=== PATIENT | male | born 1955 | race Caucasian/White ===

== ENCOUNTER 2022-11-13 01:09 | Emergency (ER) | payer OTHER ==
--- OUTSIDE RECORDS SUMMARY | 2022-11-13 01:17 | XMS REPORT | Continuity of Care Document ---
:1955 Author Organization [facility] t Address [address] [place] [address] 14[address] [place] [address] Care Team Providers Name Role Phone CHATA MALDONADO Attending Clinician Unavailable GOLDEN SOSA Attending Clinician Unavailable DARRELL MAHARAJ Attending Clinician Unavailable MK LANGE Attending Clinician Unavailable MIAH JOHNSTON Attending Clinician Unavailable MERRITT TOMAS Attending Clinician Unavailable REENA FLETCHER Attending Clinician Unavailable GOLDEN GALLEGO Attending Clinician Unavailable CIRILO GODOY Attending Clinician Unavailable Ravindra Attending Clinician Unavailable Mp Mendez Attending Clinician Unavailable Wil Aragon Attending Clinician Unavailable Billy Maxwell Attending Clinician Unavailable GOLDEN SOSA Admitting Clinician Unavailable MERRITT TOMAS Admitting Clinician Unavailable Ravindra Admitting Clinician Unavailable Mp Mendez Admitting Clinician Unavailable Wil Aragon Admitting Clinician Unavailable Billy Maxwell Admitting Clinician Unavailable Payers Payer Name Policy Type Policy Number Effective Date Expiration Date [facility] - [id number] PHYSICIAN HEALTH CHOICE (MEDICARE REPLACEMENT HMO) Problems This patient has no known problems. Allergies, Adverse Reactions, Alerts Allergy Allergy Status Severity Reaction(s) Onset Inactive Treating Comm ents Source Name Type Date Date Clinician No Known DA Active U 2018-03 [facility] 00:[facility]: [address] No Known DA Active U 2018-03 [facility]: [address] No Known DA Active U 2019-1 [facility] 0-25 [place] [facility] 00:[facility]: [address] Medications This patient has no known medications. Procedures Procedure Date / Time Performed Performing Clinician Sin valles [id number] 2021-12-20 00:00:00 [facility] [id number] 2021-12-16 00:00:00 [facility] [id number] 2021-12-16 00:00:00 [facility] [id number] 2021-12-16 00:00:00 [facility] [id number] 2021-12-14 00:00:00 [facility] [id number] 2021-12-06 00:00:00 [facility] [id number] 2021-12-06 00:00:00 [facility] [id number] 2021-12-06 00:00:00 [facility] [id number] 2021-12-06 00:00:00 [facility] [id number] 2021-12-06 00:00:00 [facility] [id number] 2021-12-06 00:00:00 [facility] [id number] 2021-11-25 00:00:00 [facility] [id number] 2021-11-25 00:00:00 [facility] [id number] 2021-11-25 00:00:00 [facility] Encounters Start End Encounter Admission Attending Care Care Encounter Source Date/Time Date/Time Type Type Clinicians Facility Department ID 2022-10-29 2022-10-29 Outpatient [facility] [id number] [facility] 00:00:00 00:00:[address] 2022-10-25 2022-10-25 Outpatient JOEL, [facility] [id number] [address] [place] [address] 00:00:00 00:00:00 CHATA 292 [facility] i 2022-10-16 2022-10-16 Outpatient KOSHTI, [facility] [id number] [facility] 00:00:00 00:00:00 CHATA [address] 2022-10-03 2022-10-03 Outpatient KOSHTI, [facility] [id number] [facility] 00:00:00 00:00:00 CHATA 719 Method i 2022-10-03 2022-10-03 Outpatient SHEILA, [facility] [id number] [facility] 00:00:00 00:00:00 GOLDEN 279 Method i 2022-10-03 2022-10-03 Outpatient SHEILA, [facility] [id number] [facility] 00:00:00 00:00:00 GOLDEN 108 Method i 2022-10-03 2022-10-03 Outpatient MAHMARIAN, [facility] [id number] Manor 00:00:00 00:00:00 DARRELL 454 Method i 2022-10-03 2022-10-03 Outpatient AL MENDOZA, [facility] [id number] [facility] 00:00:00 00:00:00 RUAA 590 Method i 2022-09-25 2022-09-25 Outpatient KOSHTI, [facility] [id number] [facility] 00:00:00 00:00:00 CHATA [address] 2022-09-24 2022-09-24 Outpatient AL MENDOZA, [facility] [id number] [facility] 00:00:00 00:00:00 RUAA 064 Method i 2022-09-24 2022-09-24 Outpatient SUTARIA, [facility] [id number] [facility] 00:00:00 00:00:00 MIAH 656 Method i 2022-09-24 2022-09-24 Outpatient TOMAS, [facility] [id number] [facility] 00:00:00 00:00:00 MERRITT [address] 2022-09-21 2022-09-21 Outpatient AL MENDOZA, [facility] [id number] [facility] 00:00:00 00:00:00 RUAA [address] 2022-09-19 2022-09-19 Outpatient TAKASHIMA, [facility] [id number] Manor 00:00:00 00:00:00 MASAYOSHI 171 Meth sadi 2022-08-23 2022-08-23 Outpatient AL MENDOZA, [facility] [id number] [facility] 00:00:00 00:00:00 RUAA 550 Method i 2022-08-21 2022-08-21 Outpatient SHEILA, [facility] [id number] Manor 00:00:00 00:00:00 GOLDEN 325 Method i 2022-08-21 2022-08-21 Outpatient SHEILA, [facility] [id number] Manor 00:00:00 00:00:00 GOLDEN 896 Method i 2022-08-21 2022-08-21 Outpatient [facility] [id number] Manor 00:00:00 00:00:00 661 Method i 2022-07-31 2022-08-07 Inpatient SHEILA, [facility] 018 [id number] Manor 00:00:00 00:00:00 GOLDEN 275 Method i 2022-07-31 2022-07-31 Outpatient SHEILA, [facility] [id number] Manor 00:00:00 00:00:00 GOLDEN 302 Method i 2022-07-31 2022-07-31 Inpatient SHEILA, [facility] [id number] Manor 00:00:00 00:00:00 GOLDEN 063 Method i 2022-07-30 2022-07-30 Outpatient SHEILA, [facility] [id number] Manor 00:00:00 00:00:00 GOLDEN 518 Method i 2022-07-19 2022-07-19 Outpatient SHEILA, [facility] [id number] Manor 00:00:00 00:00:00 GOLDEN 523 Method i 2022-07-19 2022-07-19 Outpatient MAHMARIAN, [facility] [id number] Manor 00:00:00 00:00:00 DARRELL 078 Method i 2022-07-11 2022-07-11 Outpatient TOMAS, [facility] 224 [id number] Manor 00:00:00 00:00:00 MERRITT 498 Method i 2022-06-25 2022-06-25 Outpatient AL MENDOZA, [facility] [id number] Manor 00:00:00 00:00:00 RUAA 677 Method i 2022-06-08 2022-06-08 Outpatient TOMAS, [facility] [id number] Manor 00:00:00 00:00:00 MERRITT [address] 2022-06-08 2022-06-08 Outpatient SHEILA, [facility] [id number] Manor 00:00:00 00:00:00 GOLDEN [address] 2022-06-08 2022-06-08 Outpatient TOMAS, [facility] [id number] Manor 00:00:00 00:00:00 MERRITT [address] 2022-06-08 2022-06-08 Outpatient AL MENDOZA, [facility] [id number] Manor 00:00:00 00:00:00 RUAA [address] 2022-06-05 2022-06-05 Outpatient SHEILA, [facility] [id number] Manor 00:00:00 00:00:00 GOLDEN [address] 2022-06-05 2022-06-05 Outpatient SHEILA, [facility] [id number] [facility] 00:00:00 00:00:00 GOLDEN [address] 2022-05-28 2022-05-28 Outpatient AL MENDOZA, [facility] [id number] Manor 00:00:00 00:00:00 RUAA [address] 2022-05-18 2022-05-18 Outpatient MAHMARIAN, [facility] [id number] Manor 00:00:00 00:00:00 DARRELL [address] 2022-05-18 2022-05-18 Outpatient MAHMARIAN, [facility] [id number] Manor 00:00:00 00:00:00 DARRELL [address] 2022-05-17 2022-05-17 Outpatient SHEILA, [facility] [id number] Manor 00:00:00 00:00:00 GOLDEN [address] 2022-05-17 2022-05-17 Outpatient SHEILA, [facility] [id number] Manor 00:00:00 00:00:00 GOLDEN [address] 2022-05-17 2022-05-17 Outpatient SHEILA, [facility] [id number] Manor 00:00:00 00:00:00 GOLDEN [address] 2022-05-17 2022-05-17 Outpatient SHEILA, [facility] [id number] Manor 00:00:00 00:00:00 GOLDEN [address] 2022-05-15 2022-05-15 Outpatient MAHMARIAN, [facility] [id number] Manor 00:00:00 00:00:00 DARRELL [address] 2022-05-04 2022-05-04 Outpatient TAKASHIMA, [facility] [id number] Manor 00:00:00 00:00:00 BECKYTOSHIA 804 Meth sadi 2022-05-03 2022-05-03 Outpatient LASHONDA, GOLDEN [facility] [id number] Manor 00:00:00 00:00:00 536 Method i 2022-05-02 2022-05-02 Outpatient KAYLAMARIAN, [facility] [id number] Manor 00:00:00 00:00:00 DARRELL [address] 2022-05-02 2022-05-02 Outpatient PIOTRIAN, [facility] [id number] Manor 00:00:00 00:00:00 DARRELL 600 Method i 2022-04-27 2022-04-27 Outpatient SHEILA, [facility] [id number] Manor 00:00:00 00:00:00 GOLDEN 984 Method i 2022-04-26 2022-04-26 Outpatient WALT, [facility] [id number] Manor 00:00:00 00:00:00 CIRILO [address] 2022-04-11 2022-04-11 Outpatient SHEILA, [facility] [id number] Manor 00:00:00 00:00:00 GOLDEN [address] 2022-04-11 2022-04-11 Outpatient SHEILA, [facility] [id number] Manor 00:00:00 00:00:00 GOLDEN [address] 2022-01-18 2022-01-18 Outpatient Hananel_A [facility] [id number] Manor 00:00:00 00:00:00 [id number] 2021-12-15 2022-01-06 Inpatient ALEXIS Mendez, HCAWU REHA [id number] [facility] 18:39:00 10:00:[address] [facility] 2022-01-02 2022-01-02 Outpatient SHEILA, [facility] [id number] Manor 00:00:00 00:00:00 GOLDEN 269 Method i 2022-01-02 2022-01-02 Outpatient SHEILA, [facility] [id number] Manor 00:00:00 00:00:00 GOLDEN 489 Method i 2022-01-02 2022-01-02 Outpatient SHEILA, [facility] [id number] Manor 00:00:00 00:00:00 GOLDEN 659 Method i 2022-01-02 2022-01-02 Outpatient SHEILA, [facility] [id number] Manor 00:00:00 00:00:00 GOLDEN 820 Method i 2022-01-02 2022-01-02 Outpatient SHEILA, [facility] [id number] Manor 00:00:00 00:00:00 GOLDEN 025 Method i 2022-01-02 2022-01-02 Outpatient SHEILA, [facility] [id number] Manor 00:00:00 00:00:00 GOLDEN 132 Method i 2021-12-06 2021-12-15 Inpatient OLIVIA Aguilera [facility] [id number] [facility] 12:01:00 18:30:[address] 2021-11-25 2021-11-29 Inpatient Billy Jaimes [facility] [id number] [facility] 11:51:00 15:33:[address] [place] [address] Results Test Description Test Time Test Comments Results Result Comments Source SARS-CoV-2 (COVID-19) RNA [Presence] in Respiratory sp ecimen by 2022-07-31 13:22:53 ANTHONY with probe detection Test Item Value Reference Range Interpretation Comme nts SARS-CoV-2 (COVID-19) RNA [Presence] in Respiratory specimen by Not detected ANTHONY with probe detection (test code = 21678-6) Whether patient is employed in a healthcare setting (test code = Un known 20168-4) Whether the patient has symptoms related to condition of interest U nknown (test code = 19743-5) Whether the patient was hospitalized for condition of interest Unkn own (test code = 10738-8) Whether the patient was admitted to intensive care unit (ICU) for U nknown condition of interest (test code = 88830-4) Whether patient resides in a congregate care setting (test code = U nknown 62355-1) status (test code = 67781-9) Unknown Date and time of symptom onset (test code = 70501-9) Unknown PIPO ALMEIDASARS-CoV-2 (COVID-19) RNA [Presence] in Respiratory specimen by ANTHONY with probe [id number] 14:31:46 Test Item Value Reference Range Interpretation Comments SARS-CoV-2 (COVID-19) RNA Not detected [Presence] in Respiratory specimen by ANTHONY with probe detection (test code = 41254-8) Whether patient is employed in a Unknown healthcare setting (test code = 87150-1) Whether the patient has symptoms Unknown related to condition of interest (test code = 18342-4) Whether the patient was Unknown hospitalized for condition of interest (test code = 43287-0) Whether the patient was admitted Unknown to intensive care unit (ICU) for condition of interest (test code = 57243-4) Whether patient resides in a Unknown congregate care setting (test code = 00615-6) status (test code = Unknown 95072-3) Date and time of symptom onset Unknown (test code = 08461-3) PIPO MALCOLM [facility] BED[facility]IDE [id number] 15:23:00 Test Item Value Reference Range Interpretation Comments GLUCOSE BEDSIDE TESTING (test code 106 MG/DL 60-99 H = GLUBED) GLUCOSE BEDSIDE [id number] 15:22:00 Test Item Value Reference Range Interpretation Comments GLUCOSE BEDSIDE TESTING (test code 135 MG/DL 60-99 H = GLUBED) GLUCOSE BEDSIDE [id number] 15:22:00 Test Item Value Reference Range Interpretation Comments GLUCOSE BEDSIDE TESTING (test 93 MG/DL 60-99 N Notified Nurse~ code = GLUBED) GLUCOSE BEDSIDE [id number] 20:06:00 Test Item Value Reference Range Interpretation Comments GLUCOSE BEDSIDE TESTING (test code 122 MG/DL 60-99 H = GLUBED) GLUCOSE BEDSIDE [id number] 16:06:00 Test Item Value Reference Range Interpretation Comments GLUCOSE BEDSIDE TESTING 131 MG/DL 60-99 H Noti fied Nurse~ (test code = GLUBED) GLUCOSE BEDSIDE [id number] 11:53:00 Test Item Value Reference Range Interpretation Comments GLUCOSE BEDSIDE TESTING (test 84 MG/DL 60-99 N Notified Nurse~ code = GLUBED) GLUCOSE BEDSIDE [id number] 07:25:00 Test Item Value Reference Range Interpretation Comments GLUCOSE BEDSIDE TESTING (test 87 MG/DL 60-99 N Notified Nurse~ code = GLUBED) PROTHROMBIN [id number] 05:12:00 Test Item Value Reference Range Interpretation Comments PROTHROMBIN TIME 22.6 SECONDS 9.4-12.7 H PATIENT (test code = PTP) INTERNATIONAL NORMAL 2.0 0.86-1.14 H The INR is to be RATIO (test code = used only for INR) monitoring oral anticoagulantth erap y. INDICATION I NR VALUE ---- ---- ---- -------1. Prophylaxis, de ep venous thrombos is, including high risk surgery. 2.0 - 3.0 2. Prophylaxis, deep venous thrombosis, hip surgery, treatm ent for deep venous thrombosis or pulmonary prevention of systemic emboli sm in patients wit h valvular heart disease, atrial fibrillation, tissue heart va lve, or acute myocar dial infarction. 2. 0 - 3.0 3. Senior Case Manager al prosthesis hear t valves, recurre nt systemic emboli sm. 3.0 - 4.5 Comments to Hydrology Professor: .BASIC METABOLIC [id number] 05:09:00 Test Item Value Reference Range Interpretation Comments SODIUM (test code = 141 MMOL/L 137-145 N NA) POTASSIUM (test code = 3.9 MMOL/L 3.5-5.1 N K) CHLORIDE (test code = 109 MMOL/L 98-107 H CL) CARBON DIOXIDE (test 25 MMOL/L 22-30 N code = CO2) GLUCOSE (test code = 96 MG/DL 74-106 N GLU) BLOOD UREA NITROGEN 27 MG/DL 9-20 H (test code = BUN) GLOMERULAR FILTRATION > 60 Report ing units: RATE (test code = GFR) ml/mi n/1.73 m2 (Modified MDRD Formula)Referen ce Range: > or = 6 0 ml/min/1.73 m2 CREATININE (test code 1.20 MG/DL 0.66-1.25 N = CREAT) CALCIUM (test code = 8.6 MG/DL 8.4-10.2 N CA) GLUCOSE BEDSIDE [id number] 19:53:00 Test Item Value Reference Range Interpretation Comments GLUCOSE BEDSIDE TESTING (test code 130 MG/DL 60-99 H = GLUBED) GLUCOSE BEDSIDE [id number] 16:45:00 Test Item Value Reference Range Interpretation Comments GLUCOSE BEDSIDE TESTING (test code = 81 MG/DL 60-99 N GLUBED) GLUCOSE BEDSIDE [id number] 11:33:00 Test Item Value Reference Range Interpretation Comments GLUCOSE BEDSIDE TESTING (test code 102 MG/DL 60-99 H = GLUBED) GLUCOSE BEDSIDE [id number] 07:55:00 Test Item Value Reference Range Interpretation Comments GLUCOSE BEDSIDE TESTING (test code = 93 MG/DL 60-99 N GLUBED) PROTHROMBIN [id number] 06:00:00 Test Item Value Reference Range Interpretation Comments PROTHROMBIN TIME 31.1 SECONDS 9.4-12.7 H PATIENT (test code = PTP) INTERNATIONAL NORMAL 2.7 0.86-1.14 H The INR is to be RATIO (test code = used only for INR) monitoring oral anticoagulantth erap y. INDICATION INR VALUE ---- ---- ---- -------1. Prophylaxis, de ep venous thrombos is, including high risk surgery. 2.0 - 3.0 2. Prophylaxis, deep venous thrombosis, hip surgery, treatm ent for deep venous thrombosis or pulmonary prevention of systemic emboli sm in patients wit h valvular heart disease, atrial fibrillation, tissue heart va lve, or acute myocar dial infarction. 2.0 - 3.0 3. Senior Case Manager al prosthesis hear t valves, recurre nt systemic emboli sm. 3.0 - 4.5 Comments to Hydrology Professor: .GLUCOSE BEDSIDE [id number] 19:57:00 Test Item Value Reference Range Interpretation Comments GLUCOSE BEDSIDE TESTING (test code 143 MG/DL 60-99 H = GLUBED) GLUCOSE BEDSIDE [id number] 17:38:00 Test Item Value Reference Range Interpretation Comments GLUCOSE BEDSIDE TESTING (test code = 86 MG/DL 60-99 N GLUBED) PROTHROMBIN [id number] 12:39:00 Test Item Value Reference Range Interpretation Comments PROTHROMBIN TIME 35.0 SECONDS 9.4-12.7 H PATIENT (test code = PTP) INTERNATIONAL NORMAL 3.0 0.86-1.14 H The INR is to be RATIO (test code = used only for INR) monitoring oral anticoagulantth erap y. INDICATION I NR VALUE ---- ---- ---- -------1. Prophylaxis, de ep venous thrombos is, including high risk surgery. 2.0 - 3.0 2. Prophylaxis, deep venous thrombosis, hip surgery, treatm ent for deep venous thrombosis or pulmonary prevention of systemic emboli sm in patients wit h valvular heart disease, atrial fibrillation, tissue heart va lve, or acute myocar dial infarction. 2. 0 - 3.0 3. Senior Case Manager al prosthesis hear t valves, recurre nt systemic emboli sm. 3.0 - 4.5 PATIENT REFUSE THE BLOOD DRAW. [facility] 0759 BY [id number] BEDSIDE [id number] 11:35:00 Test Item Value Reference Range Interpretation Comments GLUCOSE BEDSIDE TESTING (test code = 96 MG/DL 60-99 N GLUBED) GLUCOSE BEDSIDE [id number] 08:13:00 Test Item Value Reference Range Interpretation Comments GLUCOSE BEDSIDE TESTING (test code = 94 MG/DL 60-99 N GLUBED) GLUCOSE BEDSIDE [id number] 19:42:00 Test Item Value Reference Range Interpretation Comments GLUCOSE BEDSIDE TESTING (test code 146 MG/DL 60-99 H = GLUBED) GLUCOSE BEDSIDE [id number] 15:39:00 Test Item Value Reference Range Interpretation Comments GLUCOSE BEDSIDE TESTING (test code 121 MG/DL 60-99 H = GLUBED) GLUCOSE BEDSIDE [id number] 11:18:00 Test Item Value Reference Range Interpretation Comments GLUCOSE BEDSIDE TESTING (test code 105 MG/DL 60-99 H = GLUBED) GLUCOSE BEDSIDE [id number] 06:42:00 Test Item Value Reference Range Interpretation Comments GLUCOSE BEDSIDE TESTING (test code 104 MG/DL 60-99 H = GLUBED) PROTHROMBIN [id number] 05:30:00 Test Item Value Reference Range Interpretation Comments PROTHROMBIN TIME 28.0 SECONDS 9.4-12.7 H PATIENT (test code = PTP) INTERNATIONAL NORMAL 2.4 0.86-1.14 H The INR is to be RATIO (test code = used only for INR) monitoring oral anticoagulantth erap y. INDICATION I NR VALUE ---- ---- ---- -------1. Prophylaxis, de ep venous thrombos is, including high risk surgery. 2.0 - 3.0 2. Prophylaxis, deep venous thrombosis, hip surgery, treatm ent for deep venous thrombosis or pulmonary prevention of systemic emboli sm in patients wit h valvular heart disease, atrial fibrillation, tissue heart va lve, or acute myocar dial infarction. 2.0 - 3.0 3. Senior Case Manager al prosthesis hear t valves, recurre nt systemic emboli sm. 3.0 - 4.5 CBC W/AUTO [id number] 05:23:00 Test Item Value Reference Range Interpretation Comments WHITE BLOOD CELL (test code = 6.3 K/MM3 3.8-9.8 N WBC) RED BLOOD CELL (test code = 3.29 M/MM3 3.95-5.67 L RBC) HEMOGLOBIN (test code = HGB) 9.4 G/DL 12.4-16.7 L HEMATOCRIT (test code = HCT) 29.4 % 35.9-49.5 L MEAN CELL VOLUME (test code = 89 fL 81.7-96.1 N MCV) MEAN CELL HGB (test code = MCH) 28.6 pg 27.6-33.2 N MEAN CELL HGB CONCETRATION 32.0 % 32.9-35.5 L (test code = MCHC) RED CELL DISTRIBUTION WIDTH 14.0 % 12.1-15.2 N (test code = RDW) PLATELET COUNT (test code = 218 K/MM3 129-368 N PLT) MEAN PLATELET VOLUME (test code 10.0 fl 7.4-10.4 N = MPV) NEUTROPHIL % (test code = NT%) 56.5 % 43-75 N IMMATURE GRANULOCYTE % (test 0.3 % 0.0-2.0 N code = IG%) LYMPHOCYTE % (test code = LY%) 32.8 % 14-44 N MONOCYTE % (test code = MO%) 8.4 % 4-13 N EOSINOPHIL % (test code = EO%) 1.4 % 0-6 N BASOPHIL % (test code = BA%) 0.6 % 0-2 N NUCLEATED RBC % (test code = 0.0 % 0-1.0 N NRBC%) NEUTROPHIL # (test code = NT#) 3.57 K/mm3 2.0-7.6 N IMMATURE GRANULOCYTE # (test 0.02 x10 3/uL 0-0.03 N code = IG#) LYMPHOCYTE # (test code = LY#) 2.07 K/mm3 1.0-3.8 N MONOCYTE # (test code = MO#) 0.53 K/mm3 0.1-0.8 N EOSINOPHIL # (test code = EO#) 0.09 K/mm3 0.0-0.2 N BASOPHIL # (test code = BA#) 0.04 K/mm3 0.0-0.2 N NUCLEATED RBC # (test code = 0.00 K/mm3 0.0-0.1 N NRBC#) GLUCOSE BEDSIDE [id number] 20:33:00 Test Item Value Reference Range Interpretation Comments GLUCOSE BEDSIDE TESTING (test code 141 MG/DL 60-99 H = GLUBED) GLUCOSE BEDSIDE [id number] 15:44:00 Test Item Value Reference Range Interpretation Comments GLUCOSE BEDSIDE TESTING 110 MG/DL 60-99 H Noti fied Nurse~ (test code = GLUBED) GLUCOSE BEDSIDE [id number] 11:50:00 Test Item Value Reference Range Interpretation Comments GLUCOSE BEDSIDE TESTING (test 97 MG/DL 60-99 N Notified Nurse~ code = GLUBED) PROTHROMBIN [id number] 10:11:00 Test Item Value Reference Range Interpretation Comments PROTHROMBIN TIME 26.3 SECONDS 9.4-12.7 H PATIENT (test code = PTP) INTERNATIONAL NORMAL 2.3 0.86-1.14 H The INR is to be RATIO (test code = used only for INR) monitoring oral anticoagulantth erap y. INDICATION I NR VALUE ---- ---- ---- -------1. Prophylaxis, de ep venous thrombos is, including high risk surgery. 2.0 - 3.0 2. Prophylaxis, deep venous thrombosis, hip surgery, treatm ent for deep venous thrombosis or pulmonary prevention of systemic emboli sm in patients wit h valvular heart disease, atrial fibrillation, tissue heart va lve, or acute myocar dial infarction. 2.0 - 3.0 3. Senior Case Manager al prosthesis hear t valves, recurre nt systemic emboli sm. 3.0 - 4.5 GLUCOSE BEDSIDE [id number] 07:02:00 Test Item Value Reference Range Interpretation Comments GLUCOSE BEDSIDE TESTING 106 MG/DL 60-99 H Noti fied Nurse~ (test code = GLUBED) BASIC METABOLIC [id number] 04:38:00 Test Item Value Reference Range Interpretation Comments SODIUM (test code = 141 MMOL/L 137-145 N NA) POTASSIUM (test code = 3.9 MMOL/L 3.5-5.1 N K) CHLORIDE (test code = 110 MMOL/L 98-107 H CL) CARBON DIOXIDE (test 22 MMOL/L 22-30 N code = CO2) ANION GAP (test code = 13 MMOL/L 14-24 L GAP) GLUCOSE (test code = 112 MG/DL 74-106 H GLU) BLOOD UREA NITROGEN 24 MG/DL 9-20 H (test code = BUN) GLOMERULAR FILTRATION > 60 Report ing units: RATE (test code = GFR) ml/mi n/1.73 m2 (Modified MDRD Formula)Referen ce Range: > or = 6 0 ml/min/1.73 m2 CREATININE (test code 1.20 MG/DL 0.66-1.25 N = CREAT) CALCIUM (test code = 8.7 MG/DL 8.4-10.2 N CA) GLUCOSE BEDSIDE [id number] 19:42:00 Test Item Value Reference Range Interpretation Comments GLUCOSE BEDSIDE TESTING (test code 133 MG/DL 60-99 H = GLUBED) GLUCOSE BEDSIDE [id number] 16:13:00 Test Item Value Reference Range Interpretation Comments GLUCOSE BEDSIDE TESTING (test code 117 MG/DL 60-99 H = GLUBED) GLUCOSE BEDSIDE [id number] 11:12:00 Test Item Value Reference Range Interpretation Comments GLUCOSE BEDSIDE TESTING (test code 123 MG/DL 60-99 H = GLUBED) PROTHROMBIN [id number] 09:02:00 Test Item Value Reference Range Interpretation Comments PROTHROMBIN TIME 22.2 SECONDS 9.4-12.7 H PATIENT (test code = PTP) INTERNATIONAL NORMAL 1.9 0.86-1.14 H The INR is to be RATIO (test code = used only for INR) monitoring oral anticoagulantth erap y. INDICATION I NR VALUE ---- ---- ---- -------1. Prophylaxis, de ep venous thrombos is, including high risk surgery. 2.0 - 3.0 2. Prophylaxis, deep venous thrombosis, hip surgery, treatm ent for deep venous thrombosis or pulmonary prevention of systemic emboli sm in patients wit h valvular heart disease, atrial fibrillation, tissue heart va lve, or acute myocar dial infarction. 2.0 - 3.0 3. Senior Case Manager al prosthesis hear t valves, recurre nt systemic emboli sm. 3.0 - 4.5 GLUCOSE BEDSIDE [id number] 06:51:00 Test Item Value Reference Range Interpretation Comments GLUCOSE BEDSIDE TESTING (test code 111 MG/DL 60-99 H = GLUBED) GLUCOSE BEDSIDE [id number] 19:46:00 Test Item Value Reference Range Interpretation Comments GLUCOSE BEDSIDE TESTING (test code 148 MG/DL 60-99 H = GLUBED) GLUCOSE BEDSIDE [id number] 16:06:00 Test Item Value Reference Range Interpretation Comments GLUCOSE BEDSIDE TESTING (test code 132 MG/DL 60-99 H = GLUBED) GLUCOSE BEDSIDE [id number] 11:21:00 Test Item Value Reference Range Interpretation Comments GLUCOSE BEDSIDE TESTING (test code 159 MG/DL 60-99 H = GLUBED) GLUCOSE BEDSIDE [id number] 07:01:00 Test Item Value Reference Range Interpretation Comments GLUCOSE BEDSIDE TESTING (test code 103 MG/DL 60-99 H = GLUBED) PROTHROMBIN [id number] 05:18:00 Test Item Value Reference Range Interpretation Comments PROTHROMBIN TIME 20.8 SECONDS 9.4-12.7 H PATIENT (test code = PTP) INTERNATIONAL NORMAL 1.8 0.86-1.14 H The INR is to be RATIO (test code = used only for INR) monitoring oral anticoagulantth erap y. INDICATION I NR VALUE ---- ---- ---- -------1. Prophylaxis, de ep venous thrombos is, including high risk surgery. 2.0 - 3.0 2. Prophylaxis, deep venous thrombosis, hip surgery, treatm ent for deep venous thrombosis or pulmonary prevention of systemic emboli sm in patients wit h valvular heart disease, atrial fibrillation, tissue heart va lve, or acute myocar dial infarction. 2.0 - 3.0 3. Senior Case Manager al prosthesis hear t valves, recurre nt systemic emboli sm. 3.0 - 4.5 GLUCOSE BEDSIDE [id number] 19:57:00 Test Item Value Reference Range Interpretation Comments GLUCOSE BEDSIDE TESTING (test code 162 MG/DL 60-99 H = GLUBED) GLUCOSE BEDSIDE [id number] 16:18:00 Test Item Value Reference Range Interpretation Comments GLUCOSE BEDSIDE TESTING (test 89 MG/DL 60-99 N Notified Nurse~ code = GLUBED) GLUCOSE BEDSIDE [id number] 11:25:00 Test Item Value Reference Range Interpretation Comments GLUCOSE BEDSIDE TESTING 150 MG/DL 60-99 H Noti fied Nurse~ (test code = GLUBED) PROTHROMBIN [id number] 08:44:00 Test Item Value Reference Range Interpretation Comments PROTHROMBIN TIME 24.4 SECONDS 9.4-12.7 H PATIENT (test code = PTP) INTERNATIONAL NORMAL 2.2 0.86-1.14 H The INR is to be RATIO (test code = used only for INR) monitoring oral anticoagulantth erap y. INDICATION I NR VALUE ---- ---- ---- -------1. Prophylaxis, de ep venous thrombos is, including high risk surgery. 2.0 - 3.0 2. Prophylaxis, deep venous thrombosis, hip surgery, treatm ent for deep venous thrombosis or pulmonary prevention of systemic emboli sm in patients wit h valvular heart disease, atrial fibrillation, tissue heart va lve, or acute myocar dial infarction. 2.0 - 3.0 3. Senior Case Manager al prosthesis hear t valves, recurre nt systemic emboli sm. 3.0 - 4.5 UNABLE TO DRAW BLOOD, REASON: PT WANTS LABS @ 8AMNOTIFIED PATIENT CARE STAFF: VENTURA OROZCO 12/29/21 AT 0700 BY Marco AlejoaGLUCOSE BEDSIDE [id number] 07:22:00 Test Item Value Reference Range Interpretation Comments GLUCOSE BEDSIDE TESTING 111 MG/DL 60-99 H Noti fied Nurse~ (test code = GLUBED) GLUCOSE BEDSIDE [id number] 20:17:00 Test Item Value Reference Range Interpretation Comments GLUCOSE BEDSIDE TESTING (test code 151 MG/DL 60-99 H = GLUBED) GLUCOSE BEDSIDE [id number] 16:45:00 Test Item Value Reference Range Interpretation Comments GLUCOSE BEDSIDE TESTING 112 MG/DL 60-99 H Noti fied Nurse~ (test code = GLUBED) GLUCOSE BEDSIDE [id number] 11:17:00 Test Item Value Reference Range Interpretation Comments GLUCOSE BEDSIDE TESTING 128 MG/DL 60-99 H Noti fied Nurse~ (test code = GLUBED) GLUCOSE BEDSIDE [id number] 07:23:00 Test Item Value Reference Range Interpretation Comments GLUCOSE BEDSIDE TESTING (test code 102 MG/DL 60-99 H = GLUBED) PROTHROMBIN [id number] 05:22:00 Test Item Value Reference Range Interpretation Comments PROTHROMBIN TIME 36.3 SECONDS 9.4-12.7 H PATIENT (test code = PTP) INTERNATIONAL NORMAL 3.2 0.86-1.14 H The INR is to be RATIO (test code = used only for INR) monitoring oral anticoagulantth erap y. INDICATION I NR VALUE ---- ---- ---- -------1. Prophylaxis, de ep venous thrombos is, including high risk surgery. 2.0 - 3.0 2. Prophylaxis, deep venous thrombosis, hip surgery, treatm ent for deep venous thrombosis or pulmonary prevention of systemic emboli sm in patients wit h valvular heart disease, atrial fibrillation, tissue heart va lve, or acute myocar dial infarction. 2.0 - 3.0 3. Senior Case Manager al prosthesis hear t valves, recurre nt systemic emboli sm. 3.0 - 4.5 GLUCOSE BEDSIDE [id number] 20:57:00 Test Item Value Reference Range Interpretation Comments GLUCOSE BEDSIDE TESTING (test code 131 MG/DL 60-99 H = GLUBED) PROTHROMBIN [id number] 18:55:00 Test Item Value Reference Range Interpretation Comments PROTHROMBIN TIME 35.9 SECONDS 9.4-12.7 H PATIENT (test code = PTP) INTERNATIONAL NORMAL 3.2 0.86-1.14 H The INR is to be RATIO (test code = used only for INR) monitoring oral anticoagulantth erap y. INDICATION I NR VALUE ---- ---- ---- -------1. Prophylaxis, de ep venous thrombos is, including high risk surgery. 2.0 - 3.0 2. Prophylaxis, deep venous thrombosis, hip surgery, treatm ent for deep venous thrombosis or pulmonary prevention of systemic emboli sm in patients wit h valvular heart disease, atrial fibrillation, tissue heart va lve, or acute myocar dial infarction. 2.0 - 3.0 3. Senior Case Manager al prosthesis hear t valves, recurre nt systemic emboli sm. 3.0 - 4.5 PATIENT REFUSE THE BLOOD DRAW. NOTIFIED PATIENT CARE STAFF:PRINCESS PINK ON 12/27/21 AT 1347 BY [id number] UNABLE TO DRAW BLOOD, REASON: REFUSEDNOTIFIED PATIENT CARE STAFF: JOESPH ROSS 12/27/21 AT 0844 BY Marc Roman PATIENT REFUSE THE BLOOD DRAW. NOTIFIED PATIENT CARE STAFF:JOESPH JARQUIN ON 12/27/21 AT 0616 BY [id number] BASIC METABOLIC [id number] 18:52:00 Test Item Value Reference Range Interpretation Comments SODIUM (test code = 138 MMOL/L 137-145 N NA) POTASSIUM (test code = 4.1 MMOL/L 3.5-5.1 N K) CHLORIDE (test code = 102 MMOL/L 98-107 N CL) CARBON DIOXIDE (test 23 MMOL/L 22-30 N code = CO2) GLUCOSE (test code = 121 MG/DL 74-106 H GLU) BLOOD UREA NITROGEN 28 MG/DL 9-20 H (test code = BUN) GLOMERULAR FILTRATION 55 Report ing units: RATE (test code = GFR) ml/mi n/1.73 m2 (Modified MDRD Formula)Referen ce Range: > or = 6 0 ml/min/1.73 m2 CREATININE (test code 1.30 MG/DL 0.66-1.25 H = CREAT) CALCIUM (test code = 9.4 MG/DL 8.4-10.2 N CA) PATIENT REFUSE THE BLOOD DRAW. NOTIFIED PATIENT CARE STAFF:PRINCESS PINK ON 12/27/21 AT 1347 BY [id number] UNABLE TO DRAW BLOOD, REASON: REFUSEDNOTIFIED PATIENT CARE STAFF: JOESPH ROSS 12/27/21 AT 0843 BY Marc Roman PATIENT REFUSE THE BLOOD DRAW. NOTIFIED PATIENT CARE STAFF:JOESPH JARQUIN ON 12/27/21 AT 0615 BY [id number] GLUCOSE BEDSIDE [id number] 16:47:00 Test Item Value Reference Range Interpretation Comments GLUCOSE BEDSIDE TESTING (test code = 97 MG/DL 60-99 N GLUBED) GLUCOSE BEDSIDE [id number] 11:20:00 Test Item Value Reference Range Interpretation Comments GLUCOSE BEDSIDE TESTING (test code 141 MG/DL 60-99 H = GLUBED) GLUCOSE BEDSIDE [id number] 07:47:00 Test Item Value Reference Range Interpretation Comments GLUCOSE BEDSIDE TESTING (test code 101 MG/DL 60-99 H = GLUBED) GLUCOSE BEDSIDE [id number] 19:45:00 Test Item Value Reference Range Interpretation Comments GLUCOSE BEDSIDE TESTING (test code 185 MG/DL 60-99 H = GLUBED) GLUCOSE BEDSIDE [id number] 11:56:00 Test Item Value Reference Range Interpretation Comments GLUCOSE BEDSIDE TESTING (test code 113 MG/DL 60-99 H = GLUBED) GLUCOSE BEDSIDE [id number] 07:29:00 Test Item Value Reference Range Interpretation Comments GLUCOSE BEDSIDE TESTING (test code 110 MG/DL 60-99 H = GLUBED) PROTHROMBIN [id number] 05:21:00 Test Item Value Reference Range Interpretation Comments PROTHROMBIN TIME 30.9 SECONDS 9.4-12.7 H PATIENT (test code = PTP) INTERNATIONAL NORMAL 2.7 0.86-1.14 H The INR is to be RATIO (test code = used only for INR) monitoring oral anticoagulantth erap y. INDICATION I NR VALUE ---- ---- ---- -------1. Prophylaxis, de ep venous thrombos is, including high risk surgery. 2.0 - 3.0 2. Prophylaxis, deep venous thrombosis, hip surgery, treatm ent for deep venous thrombosis or pulmonary prevention of systemic emboli sm in patients wit h valvular heart disease, atrial fibrillation, tissue heart va lve, or acute myocar dial infarction. 2.0 - 3.0 3. Senior Case Manager al prosthesis hear t valves, recurre nt systemic emboli sm. 3.0 - 4.5 BASIC METABOLIC [id number] 05:09:00 Test Item Value Reference Range Interpretation Comments SODIUM (test code = 140 MMOL/L 137-145 N NA) POTASSIUM (test code = 4.8 MMOL/L 3.5-5.1 N K) CHLORIDE (test code = 106 MMOL/L 98-107 N CL) CARBON DIOXIDE (test 25 MMOL/L 22-30 N code = CO2) ANION GAP (test code = 14 MMOL/L 14-24 N GAP) GLUCOSE (test code = 123 MG/DL 74-106 H GLU) BLOOD UREA NITROGEN 31 MG/DL 9-20 H (test code = BUN) GLOMERULAR FILTRATION 55 Report ing units: RATE (test code = GFR) ml/mi n/1.73 m2 (Modified MDRD Formula)Referen ce Range: > or = 6 0 ml/min/1.73 m2 CREATININE (test code 1.30 MG/DL 0.66-1.25 H = CREAT) CALCIUM (test code = 9.2 MG/DL 8.4-10.2 N CA) GLUCOSE BEDSIDE [id number] 20:18:00 Test Item Value Reference Range Interpretation Comments GLUCOSE BEDSIDE TESTING (test code 145 MG/DL 60-99 H = GLUBED) GLUCOSE BEDSIDE [id number] 17:11:00 Test Item Value Reference Range Interpretation Comments GLUCOSE BEDSIDE TESTING (test code 148 MG/DL 60-99 H = GLUBED) GLUCOSE BEDSIDE [id number] 11:40:00 Test Item Value Reference Range Interpretation Comments GLUCOSE BEDSIDE TESTING (test code 135 MG/DL 60-99 H = GLUBED) GLUCOSE BEDSIDE [id number] 07:39:00 Test Item Value Reference Range Interpretation Comments GLUCOSE BEDSIDE TESTING (test code 108 MG/DL 60-99 H = GLUBED) BASIC METABOLIC [id number] 05:37:00 Test Item Value Reference Range Interpretation Comments SODIUM (test code = 137 MMOL/L 137-145 N NA) POTASSIUM (test code = 4.1 MMOL/L 3.5-5.1 N K) CHLORIDE (test code = 104 MMOL/L 98-107 N CL) CARBON DIOXIDE (test 24 MMOL/L 22-30 N code = CO2) GLUCOSE (test code = 111 MG/DL 74-106 H GLU) BLOOD UREA NITROGEN 25 MG/DL 9-20 H (test code = BUN) GLOMERULAR FILTRATION > 60 Report ing units: RATE (test code = GFR) ml/mi n/1.73 m2 (Modified MDRD Formula)Referen ce Range: > or = 6 0 ml/min/1.73 m2 CREATININE (test code 1.20 MG/DL 0.66-1.25 N = CREAT) CALCIUM (test code = 9.2 MG/DL 8.4-10.2 N CA) PROTHROMBIN [id number] 05:25:00 Test Item Value Reference Range Interpretation Comments PROTHROMBIN TIME 26.4 SECONDS 9.4-12.7 H PATIENT (test code = PTP) INTERNATIONAL NORMAL 2.3 0.86-1.14 H The INR is to be RATIO (test code = used only for INR) monitoring oral anticoagulantth erap y. INDICATION I NR VALUE ---- ---- ---- -------1. Prophylaxis, de ep venous thrombos is, including high risk surgery. 2.0 - 3.0 2. Prophylaxis, deep venous thrombosis, hip surgery, treatm ent for deep venous thrombosis or pulmonary prevention of systemic emboli sm in patients wit h valvular heart disease, atrial fibrillation, tissue heart va lve, or acute myocar dial infarction. 2.0 - 3.0 3. Senior Case Manager al prosthesis hear t valves, recurre nt systemic emboli sm. 3.0 - 4.5 CBC W/AUTO [id number] 05:15:00 Test Item Value Reference Range Interpretation Comments WHITE BLOOD CELL (test code = 8.9 K/MM3 3.8-9.8 N WBC) RED BLOOD CELL (test code = 3.53 M/MM3 3.95-5.67 L RBC) HEMOGLOBIN (test code = HGB) 10.2 G/DL 12.4-16.7 L HEMATOCRIT (test code = HCT) 31.4 % 35.9-49.5 L MEAN CELL VOLUME (test code = 89 fL 81.7-96.1 N MCV) MEAN CELL HGB (test code = MCH) 28.9 pg 27.6-33.2 N MEAN CELL HGB CONCETRATION 32.5 % 32.9-35.5 L (test code = MCHC) RED CELL DISTRIBUTION WIDTH 13.2 % 12.1-15.2 N (test code = RDW) PLATELET COUNT (test code = 345 K/MM3 129-368 N PLT) MEAN PLATELET VOLUME (test code 9.6 fl 7.4-10.4 N = MPV) NEUTROPHIL % (test code = NT%) 61.8 % 43-75 N IMMATURE GRANULOCYTE % (test 1.0 % 0.0-2.0 N code = IG%) LYMPHOCYTE % (test code = LY%) 24.5 % 14-44 N MONOCYTE % (test code = MO%) 10.1 % 4-13 N EOSINOPHIL % (test code = EO%) 2.0 % 0-6 N BASOPHIL % (test code = BA%) 0.6 % 0-2 N NUCLEATED RBC % (test code = 0.0 % 0-1.0 N NRBC%) NEUTROPHIL # (test code = NT#) 5.53 K/mm3 2.0-7.6 N IMMATURE GRANULOCYTE # (test 0.09 x10 3/uL 0-0.03 H code = IG#) LYMPHOCYTE # (test code = LY#) 2.19 K/mm3 1.0-3.8 N MONOCYTE # (test code = MO#) 0.90 K/mm3 0.1-0.8 H EOSINOPHIL # (test code = EO#) 0.18 K/mm3 0.0-0.2 N BASOPHIL # (test code = BA#) 0.05 K/mm3 0.0-0.2 N NUCLEATED RBC # (test code = 0.00 K/mm3 0.0-0.1 N NRBC#) GLUCOSE BEDSIDE [id number] 20:18:00 Test Item Value Reference Range Interpretation Comments GLUCOSE BEDSIDE TESTING (test code 159 MG/DL 60-99 H = GLUBED) GLUCOSE BEDSIDE [id number] 15:52:00 Test Item Value Reference Range Interpretation Comments GLUCOSE BEDSIDE TESTING (test code 147 MG/DL 60-99 H = GLUBED) GLUCOSE BEDSIDE [id number] 11:25:00 Test Item Value Reference Range Interpretation Comments GLUCOSE BEDSIDE TESTING (test code = 72 MG/DL 60-99 N GLUBED) GLUCOSE BEDSIDE [id number] 07:19:00 Test Item Value Reference Range Interpretation Comments GLUCOSE BEDSIDE TESTING (test code 111 MG/DL 60-99 H = GLUBED) BASIC METABOLIC [id number] 05:23:00 Test Item Value Reference Range Interpretation Comments SODIUM (test code = 137 MMOL/L 137-145 N NA) POTASSIUM (test code = 4.3 MMOL/L 3.5-5.1 N K) CHLORIDE (test code = 105 MMOL/L 98-107 N CL) CARBON DIOXIDE (test 24 MMOL/L 22-30 code = CO2) ANION GAP (test code = 12 MMOL/L 14-24 L GAP) GLUCOSE (test code = 122 MG/DL 74-106 H GLU) BLOOD UREA NITROGEN 23 MG/DL 9-20 H (test code = BUN) GLOMERULAR FILTRATION > 60 Report ing units: RATE (test code = GFR) ml/mi n/1.73 m2 (Modified MDRD Formula)Referen ce Range: > or = 6 0 ml/min/1.73 m2 CREATININE (test code 1.20 MG/DL 0.66-1.25 N = CREAT) CALCIUM (test code = 9.3 MG/DL 8.4-10.2 N CA) PROTHROMBIN [id number] 05:17:00 Test Item Value Reference Range Interpretation Comments PROTHROMBIN TIME 25.9 SECONDS 9.4-12.7 H PATIENT (test code = PTP) INTERNATIONAL NORMAL 2.3 0.86-1.14 H The INR is to be RATIO (test code = used only for INR) monitoring oral anticoagulantth erap y. INDICATION I NR VALUE ---- ---- ---- -------1. Prophylaxis, de ep venous thrombos is, including high risk surgery. 2.0 - 3.0 2. Prophylaxis, deep venous thrombosis, hip surgery, treatm ent for deep venous thrombosis or pulmonary prevention of systemic emboli sm in patients wit h valvular heart disease, atrial fibrillation, tissue heart va lve, or acute myocar dial infarction. 2.0 - 3.0 3. Senior Case Manager al prosthesis hear t valves, recurre nt systemic emboli sm. 3.0 - 4.5 GLUCOSE BEDSIDE [id number] 22:42:00 Test Item Value Reference Range Interpretation Comments GLUCOSE BEDSIDE TESTING (test code 114 MG/DL 60-99 H = GLUBED) GLUCOSE BEDSIDE [id number] 16:47:00 Test Item Value Reference Range Interpretation Comments GLUCOSE BEDSIDE TESTING (test code 209 MG/DL 60-99 H = GLUBED) GLUCOSE BEDSIDE [id number] 11:54:00 Test Item Value Reference Range Interpretation Comments GLUCOSE BEDSIDE TESTING (test code 120 MG/DL 60-99 H = GLUBED) GLUCOSE BEDSIDE [id number] 06:20:00 Test Item Value Reference Range Interpretation Comments GLUCOSE BEDSIDE TESTING (test code 104 MG/DL 60-99 H = GLUBED) BASIC METABOLIC [id number] 05:44:00 Test Item Value Reference Range Interpretation Comments SODIUM (test code = 138 MMOL/L 137-145 N NA) POTASSIUM (test code = 4.7 MMOL/L 3.5-5.1 N K) CHLORIDE (test code = 103 MMOL/L 98-107 N CL) CARBON DIOXIDE (test 27 MMOL/L 22-30 N code = CO2) ANION GAP (test code = 13 MMOL/L 14-24 L GAP) GLUCOSE (test code = 119 MG/DL 74-106 H GLU) BLOOD UREA NITROGEN 21 MG/DL 9-20 H (test code = BUN) GLOMERULAR FILTRATION 55 Report ing units: RATE (test code = GFR) ml/mi n/1.73 m2 (Modified MDRD Formula)Referen ce Range: > or = 6 0 ml/min/1.73 m2 CREATININE (test code 1.30 MG/DL 0.66-1.25 H = CREAT) CALCIUM (test code = 9.6 MG/DL 8.4-10.2 N CA) PROTHROMBIN [id number] 05:17:00 Test Item Value Reference Range Interpretation Comments PROTHROMBIN TIME 20.4 SECONDS 9.4-12.7 H PATIENT (test code = PTP) INTERNATIONAL NORMAL 1.8 0.86-1.14 H The INR is to be RATIO (test code = used only for INR) monitoring oral anticoagulantth erap y. INDICATION I NR VALUE ---- ---- ---- -------1. Prophylaxis, de ep venous thrombos is, including high risk surgery. 2.0 - 3.0 2. Prophylaxis, deep venous thrombosis, hip surgery, treatm ent for deep venous thrombosis or pulmonary prevention of systemic emboli sm in patients wit h valvular heart disease, atrial fibrillation, tissue heart va lve, or acute myocar dial infarction. 2.0 - 3.0 3. Senior Case Manager al prosthesis hear t valves, recurre nt systemic emboli sm. 3.0 - 4.5 GLUCOSE BEDSIDE [id number] 21:19:00 Test Item Value Reference Range Interpretation Comments GLUCOSE BEDSIDE TESTING (test code 109 MG/DL 60-99 H = GLUBED) GLUCOSE BEDSIDE [id number] 16:11:00 Test Item Value Reference Range Interpretation Comments GLUCOSE BEDSIDE TESTING (test code 139 MG/DL 60-99 H = GLUBED) GLUCOSE BEDSIDE [id number] 11:34:00 Test Item Value Reference Range Interpretation Comments GLUCOSE BEDSIDE TESTING (test code 147 MG/DL 60-99 H = GLUBED) GLUCOSE BEDSIDE [id number] 07:30:00 Test Item Value Reference Range Interpretation Comments GLUCOSE BEDSIDE TESTING (test code 119 MG/DL 60-99 H = GLUBED) BASIC METABOLIC [id number] 05:07:00 Test Item Value Reference Range Interpretation Comments SODIUM (test code = 136 MMOL/L 137-145 L NA) POTASSIUM (test code = 4.6 MMOL/L 3.5-5.1 N K) CHLORIDE (test code = 105 MMOL/L 98-107 CL) CARBON DIOXIDE (test 22 MMOL/L 22-30 N code = CO2) ANION GAP (test code = 14 MMOL/L 14-24 N GAP) GLUCOSE (test code = 105 MG/DL 74-106 GLU) BLOOD UREA NITROGEN 22 MG/DL 9-20 H (test code = BUN) GLOMERULAR FILTRATION 55 Report ing units: RATE (test code = GFR) ml/mi n/1.73 m2 (Modified MDRD Formula)Referen ce Range: > or = 6 0 ml/min/1.73 m2 CREATININE (test code 1.30 MG/DL 0.66-1.25 H = CREAT) CALCIUM (test code = 9.0 MG/DL 8.4-10.2 N CA) PROTHROMBIN [id number] 04:57:00 Test Item Value Reference Range Interpretation Comments PROTHROMBIN TIME 18.8 SECONDS 9.4-12.7 H PATIENT (test code = PTP) INTERNATIONAL NORMAL 1.7 0.86-1.14 H The INR is to be RATIO (test code = used only for INR) monitoring oral anticoagulantth erap y. INDICATION INR VALUE ---- ---- ---- -------1. Prophylaxis, de ep venous thrombos is, including high risk surgery. 2.0 - 3.0 2. Prophylaxis, deep venous thrombosis, hip surgery, treatm ent for deep venous thrombosis or pulmonary prevention of systemic emboli sm in patients wit h valvular heart disease, atrial fibrillation, tissue heart va lve, or acute myocar dial infarction. 2.0 - 3.0 3. Senior Case Manager al prosthesis hear t valves, recurre nt systemic emboli sm. 3.0 - 4.5 GLUCOSE BEDSIDE [id number] 04:18:00 Test Item Value Reference Range Interpretation Comments GLUCOSE BEDSIDE TESTING (test code = 96 MG/DL 60-99 N GLUBED) GLUCOSE BEDSIDE [id number] 19:49:00 Test Item Value Reference Range Interpretation Comments GLUCOSE BEDSIDE TESTING (test code 178 MG/DL 60-99 H = GLUBED) GLUCOSE BEDSIDE [id number] 16:51:00 Test Item Value Reference Range Interpretation Comments GLUCOSE BEDSIDE TESTING (test code 122 MG/DL 60-99 H = GLUBED) UR OSMOLALITY [id number] 14:45:00 Test Item Value Reference Range Interpretation Comments UR OSMOLALITY RANDOM (test code = 457 MOS/KG 300-1200 N OSMOU) BASIC METABOLIC [id number] 14:41:00 Test Item Value Reference Range Interpretation Comments SODIUM (test code = 126 MMOL/L 137-145 L NA) POTASSIUM (test code = 4.3 MMOL/L 3.5-5.1 N K) CHLORIDE (test code = 94 MMOL/L 98-107 L CL) CARBON DIOXIDE (test 24 MMOL/L 22-30 N code = CO2) ANION GAP (test code = 12 MMOL/L 14-24 L GAP) GLUCOSE (test code = 136 MG/DL 74-106 H GLU) BLOOD UREA NITROGEN 24 MG/DL 9-20 H (test code = BUN) GLOMERULAR FILTRATION > 60 Report ing units: RATE (test code = GFR) ml/mi n/1.73 m2 (Modified MDRD Formula)Referen ce Range: > or = 6 0 ml/min/1.73 m2 CREATININE (test code 1.20 MG/DL 0.66-1.25 N = CREAT) CALCIUM (test code = 8.6 MG/DL 8.4-10.2 N CA) GLUCOSE BEDSIDE [id number] 12:33:00 Test Item Value Reference Range Interpretation Comments GLUCOSE BEDSIDE TESTING (test code 140 MG/DL 60-99 H = GLUBED) GLUCOSE BEDSIDE [id number] 07:55:00 Test Item Value Reference Range Interpretation Comments GLUCOSE BEDSIDE TESTING (test code = 77 MG/DL 60-99 N GLUBED) BASIC METABOLIC [id number] 05:36:00 Test Item Value Reference Range Interpretation Comments SODIUM (test code = 126 MMOL/L 137-145 L NA) POTASSIUM (test code = 4.0 MMOL/L 3.5-5.1 N K) CHLORIDE (test code = 96 MMOL/L 98-107 L CL) CARBON DIOXIDE (test 22 MMOL/L 22-30 N code = CO2) ANION GAP (test code = 12 MMOL/L 14-24 L GAP) GLUCOSE (test code = 71 MG/DL 74-106 L GLU) BLOOD UREA NITROGEN 26 MG/DL 9-20 H (test code = BUN) GLOMERULAR FILTRATION > 60 Report ing units: RATE (test code = GFR) ml/mi n/1.73 m2 (Modified MDRD Formula)Referen ce Range: > or = 6 0 ml/min/1.73 m2 CREATININE (test code 1.10 MG/DL 0.66-1.25 = CREAT) CALCIUM (test code = 8.3 MG/DL 8.4-10.2 L CA) PROTHROMBIN [id number] 05:30:00 Test Item Value Reference Range Interpretation Comments PROTHROMBIN TIME 17.5 SECONDS 9.4-12.7 H PATIENT (test code = PTP) INTERNATIONAL NORMAL 1.6 0.86-1.14 H The INR is to be RATIO (test code = used only for INR) monitoring oral anticoagulantth erap y. INDICATION I NR VALUE ---- ---- ---- -------1. Prophylaxis, de ep venous thrombos is, including high risk surgery. 2.0 - 3.0 2. Prophylaxis, deep venous thrombosis, hip surgery, treatm ent for deep venous thrombosis or pulmonary prevention of systemic emboli sm in patients wit h valvular heart disease, atrial fibrillation, tissue heart va lve, or acute myocar dial infarction. 2.0 - 3.0 3. Senior Case Manager al prosthesis hear t valves, recurre nt systemic emboli sm. 3.0 - 4.5 CBC W/AUTO [id number] 05:23:00 Test Item Value Reference Range Interpretation Comments WHITE BLOOD CELL (test code = 10.7 K/MM3 3.8-9.8 H WBC) RED BLOOD CELL (test code = 2.91 M/MM3 3.95-5.67 L RBC) HEMOGLOBIN (test code = HGB) 8.4 G/DL 12.4-16.7 L HEMATOCRIT (test code = HCT) 24.9 % 35.9-49.5 L MEAN CELL VOLUME (test code = 86 fL 81.7-96.1 N MCV) MEAN CELL HGB (test code = MCH) 28.9 pg 27.6-33.2 N MEAN CELL HGB CONCETRATION 33.7 % 32.9-35.5 N (test code = MCHC) RED CELL DISTRIBUTION WIDTH 12.6 % 12.1-15.2 N (test code = RDW) PLATELET COUNT (test code = 302 K/MM3 129-368 N PLT) MEAN PLATELET VOLUME (test code 10.0 fl 7.4-10.4 N = MPV) NEUTROPHIL % (test code = NT%) 71.1 % 43-75 N IMMATURE GRANULOCYTE % (test 0.6 % 0.0-2.0 N code = IG%) LYMPHOCYTE % (test code = LY%) 17.0 % 14-44 N MONOCYTE % (test code = MO%) 9.6 % 4-13 N EOSINOPHIL % (test code = EO%) 1.4 % 0-6 N BASOPHIL % (test code = BA%) 0.3 % 0-2 N NUCLEATED RBC % (test code = 0.0 % 0-1.0 N NRBC%) NEUTROPHIL # (test code = NT#) 7.59 K/mm3 2.0-7.6 N IMMATURE GRANULOCYTE # (test 0.06 x10 3/uL 0-0.03 H code = IG#) LYMPHOCYTE # (test code = LY#) 1.81 K/mm3 1.0-3.8 N MONOCYTE # (test code = MO#) 1.02 K/mm3 0.1-0.8 H EOSINOPHIL # (test code = EO#) 0.15 K/mm3 0.0-0.2 N BASOPHIL # (test code = BA#) 0.03 K/mm3 0.0-0.2 N NUCLEATED RBC # (test code = 0.00 K/mm3 0.0-0.1 N NRBC#) GLUCOSE BEDSIDE [id number] 19:58:00 Test Item Value Reference Range Interpretation Comments GLUCOSE BEDSIDE TESTING (test code 123 MG/DL 60-99 H = GLUBED) GLUCOSE BEDSIDE [id number] 17:22:00 Test Item Value Reference Range Interpretation Comments GLUCOSE BEDSIDE TESTING (test code 114 MG/DL 60-99 H = GLUBED) BASIC METABOLIC [id number] 14:46:00 Test Item Value Reference Range Interpretation Comments SODIUM (test code = 126 MMOL/L 137-145 L NA) POTASSIUM (test code = 3.9 MMOL/L 3.5-5.1 N K) CHLORIDE (test code = 93 MMOL/L 98-107 L CL) CARBON DIOXIDE (test 24 MMOL/L 22-30 N code = CO2) ANION GAP (test code = 13 MMOL/L 14-24 L GAP) GLUCOSE (test code = 117 MG/DL 74-106 H GLU) BLOOD UREA NITROGEN 27 MG/DL 9-20 H (test code = BUN) GLOMERULAR FILTRATION 55 Report ing units: RATE (test code = GFR) ml/mi n/1.73 m2 (Modified MDRD Formula)Referen ce Range: > or = 6 0 ml/min/1.73 m2 CREATININE (test code 1.30 MG/DL 0.66-1.25 H = CREAT) CALCIUM (test code = 8.6 MG/DL 8.4-10.2 N CA) GLUCOSE BEDSIDE [id number] 11:23:00 Test Item Value Reference Range Interpretation Comments GLUCOSE BEDSIDE TESTING (test code 131 MG/DL 60-99 H = GLUBED) GLUCOSE BEDSIDE [id number] 06:21:00 Test Item Value Reference Range Interpretation Comments GLUCOSE BEDSIDE TESTING (test code = 84 MG/DL 60-99 N GLUBED) BASIC METABOLIC [id number] 05:03:00 Test Item Value Reference Range Interpretation Comments SODIUM (test code = 125 MMOL/L 137-145 L NA) POTASSIUM (test code = 3.8 MMOL/L 3.5-5.1 N K) CHLORIDE (test code = 93 MMOL/L 98-107 L CL) CARBON DIOXIDE (test 23 MMOL/L 22-30 N code = CO2) GLUCOSE (test code = 88 MG/DL 74-106 N GLU) BLOOD UREA NITROGEN 28 MG/DL 9-20 H (test code = BUN) GLOMERULAR FILTRATION 55 Report ing units: RATE (test code = GFR) ml/mi n/1.73 m2 (Modified MDRD Formula)Referen ce Range: > or = 6 0 ml/min/1.73 m2 CREATININE (test code 1.30 MG/DL 0.66-1.25 H = CREAT) CALCIUM (test code = 8.4 MG/DL 8.4-10.2 N CA) PROTHROMBIN [id number] 04:57:00 Test Item Value Reference Range Interpretation Comments PROTHROMBIN TIME 17.8 SECONDS 9.4-12.7 H PATIENT (test code = PTP) INTERNATIONAL NORMAL 1.6 0.86-1.14 H The INR is to be RATIO (test code = used only for INR) monitoring oral anticoagulantth erap y. INDICATION I NR VALUE ---- ---- ---- -------1. Prophylaxis, de ep venous thrombos is, including high risk surgery. 2.0 - 3.0 2. Prophylaxis, deep venous thrombosis, hip surgery, treatm ent for deep venous thrombosis or pulmonary prevention of systemic emboli sm in patients wit h valvular heart disease, atrial fibrillation, tissue heart va lve, or acute myocar dial infarction. 2.0 - 3.0 3. Senior Case Manager al prosthesis hear t valves, recurre nt systemic emboli sm. 3.0 - 4.5 GLUCOSE BEDSIDE [id number] 23:04:00 Test Item Value Reference Range Interpretation Comments GLUCOSE BEDSIDE TESTING (test code = 86 MG/DL 60-99 N GLUBED) GLUCOSE BEDSIDE [id number] 19:30:00 Test Item Value Reference Range Interpretation Comments GLUCOSE BEDSIDE TESTING (test code = 97 MG/DL 60-99 N GLUBED) GLUCOSE BEDSIDE [id number] 16:07:00 Test Item Value Reference Range Interpretation Comments GLUCOSE BEDSIDE TESTING (test code 126 MG/DL 60-99 H = GLUBED) GLUCOSE BEDSIDE [id number] 11:09:00 Test Item Value Reference Range Interpretation Comments GLUCOSE BEDSIDE TESTING (test code 107 MG/DL 60-99 H = GLUBED) GLUCOSE BEDSIDE [id number] 06:15:00 Test Item Value Reference Range Interpretation Comments GLUCOSE BEDSIDE TESTING (test code = 99 MG/DL 60-99 N GLUBED) BASIC METABOLIC [id number] 05:23:00 Test Item Value Reference Range Interpretation Comments SODIUM (test code = 128 MMOL/L 137-145 L NA) POTASSIUM (test code = 4.3 MMOL/L 3.5-5.1 N K) CHLORIDE (test code = 96 MMOL/L 98-107 L CL) CARBON DIOXIDE (test 22 MMOL/L 22-30 N code = CO2) ANION GAP (test code = 14 MMOL/L 14-24 N GAP) GLUCOSE (test code = 104 MG/DL 74-106 GLU) BLOOD UREA NITROGEN 27 MG/DL 9-20 H (test code = BUN) GLOMERULAR FILTRATION 51 Report ing units: RATE (test code = GFR) ml/mi n/1.73 m2 (Modified MDRD Formula)Referen ce Range: > or = 6 0 ml/min/1.73 m2 CREATININE (test code 1.40 MG/DL 0.66-1.25 H = CREAT) CALCIUM (test code = 9.0 MG/DL 8.4-10.2 N CA) PROTHROMBIN [id number] 05:21:00 Test Item Value Reference Range Interpretation Comments PROTHROMBIN TIME 16.4 SECONDS 9.4-12.7 H PATIENT (test code = PTP) INTERNATIONAL NORMAL 1.5 0.86-1.14 H The INR is to be RATIO (test code = used only for INR) monitoring oral anticoagulantth erap y. INDICATION I NR VALUE ---- ---- ---- -------1. Prophylaxis, de ep venous thrombos is, including high risk surgery. 2.0 - 3.0 2. Prophylaxis, deep venous thrombosis, hip surgery, treatm ent for deep venous thrombosis or pulmonary prevention of systemic emboli sm in patients wit h valvular heart disease, atrial fibrillation, tissue heart va lve, or acute myocar dial infarction. 2. 0 - 3.0 3. Senior Case Manager al prosthesis hear t valves, recurre nt systemic emboli sm. 3.0 - 4.5 GLUCOSE BEDSIDE [id number] 19:59:00 Test Item Value Reference Range Interpretation Comments GLUCOSE BEDSIDE TESTING (test code 126 MG/DL 60-99 H = GLUBED) GLUCOSE BEDSIDE [id number] 11:16:00 Test Item Value Reference Range Interpretation Comments GLUCOSE BEDSIDE TESTING 116 MG/DL 60-99 H Noti fied Nurse~ (test code = GLUBED) PROTHROMBIN [id number] 06:24:00 Test Item Value Reference Range Interpretation Comments PROTHROMBIN TIME 14.1 SECONDS 9.4-12.7 H PATIENT (test code = PTP) INTERNATIONAL NORMAL 1.3 0.86-1.14 H The INR is to be RATIO (test code = used only for INR) monitoring oral anticoagulantth erap y. INDICATION I NR VALUE ---- ---- ---- -------1. Prophylaxis, de ep venous thrombos is, including high risk surgery. 2.0 - 3.0 2. Prophylaxis, deep venous thrombosis, hip surgery, treatm ent for deep venous thrombosis or pulmonary prevention of systemic emboli sm in patients wit h valvular heart disease, atrial fibrillation, tissue heart va lve, or acute myocar dial infarction. 2.0 - 3.0 3. Senior Case Manager al prosthesis hear t valves, recurre nt systemic emboli sm. 3.0 - 4.5 GLUCOSE BEDSIDE [id number] 06:17:00 Test Item Value Reference Range Interpretation Comments GLUCOSE BEDSIDE TESTING (test 98 MG/DL 60-99 N Notified Nurse~ code = GLUBED) BASIC METABOLIC [id number] 05:34:00 Test Item Value Reference Range Interpretation Comments SODIUM (test code = 131 MMOL/L 137-145 L NA) POTASSIUM (test code = 3.9 MMOL/L 3.5-5.1 N K) CHLORIDE (test code = 99 MMOL/L 98-107 N CL) CARBON DIOXIDE (test 23 MMOL/L 22-30 N code = CO2) ANION GAP (test code = 13 MMOL/L 14-24 L GAP) GLUCOSE (test code = 89 MG/DL 74-106 GLU) BLOOD UREA NITROGEN 28 MG/DL 9-20 H (test code = BUN) GLOMERULAR FILTRATION 51 Report ing units: RATE (test code = GFR) ml/mi n/1.73 m2 (Modified MDRD Formula)Referen ce Range: > or = 6 0 ml/min/1.73 m2 CREATININE (test code 1.40 MG/DL 0.66-1.25 H = CREAT) CALCIUM (test code = 8.9 MG/DL 8.4-10.2 N CA) GLUCOSE BEDSIDE [id number] 19:36:00 Test Item Value Reference Range Interpretation Comments GLUCOSE BEDSIDE TESTING (test code 164 MG/DL 60-99 H = GLUBED) GLUCOSE BEDSIDE [id number] 16:42:00 Test Item Value Reference Range Interpretation Comments GLUCOSE BEDSIDE TESTING (test code = 97 MG/DL 60-99 N GLUBED) GLUCOSE BEDSIDE [id number] 11:44:00 Test Item Value Reference Range Interpretation Comments GLUCOSE BEDSIDE TESTING (test code 161 MG/DL 60-99 H = GLUBED) BASIC METABOLIC [id number] 07:11:00 Test Item Value Reference Range Interpretation Comments SODIUM (test code = 132 MMOL/L 137-145 L NA) POTASSIUM (test code = 4.2 MMOL/L 3.5-5.1 N K) CHLORIDE (test code = 97 MMOL/L 98-107 L CL) CARBON DIOXIDE (test 22 MMOL/L 22-30 code = CO2) ANION GAP (test code = 17 MMOL/L 14-24 N GAP) GLUCOSE (test code = 109 MG/DL 74-106 H GLU) BLOOD UREA NITROGEN 25 MG/DL 9-20 H (test code = BUN) GLOMERULAR FILTRATION 51 Report ing units: RATE (test code = GFR) ml/mi n/1.73 m2 (Modified MDRD Formula)Referen ce Range: > or = 6 0 ml/min/1.73 m2 CREATININE (test code 1.40 MG/DL 0.66-1.25 H = CREAT) CALCIUM (test code = 9.8 MG/DL 8.4-10.2 N CA) GLUCOSE BEDSIDE [id number] 06:52:00 Test Item Value Reference Range Interpretation Comments GLUCOSE BEDSIDE TESTING (test code 105 MG/DL 60-99 H = GLUBED) PROTHROMBIN [id number] 05:26:00 Test Item Value Reference Range Interpretation Comments PROTHROMBIN TIME 13.5 SECONDS 9.4-12.7 H PATIENT (test code = PTP) INTERNATIONAL NORMAL 1.2 0.86-1.14 H The INR is to be RATIO (test code = used only for INR) monitoring oral anticoagulantth erap y. INDICATION I NR VALUE ---- ---- ---- -------1. Prophylaxis, de ep venous thrombos is, including high risk surgery. 2.0 - 3.0 2. Prophylaxis, deep venous thrombosis, hip surgery, treatm ent for deep venous thrombosis or pulmonary prevention of systemic emboli sm in patients wit h valvular heart disease, atrial fibrillation, tissue heart va lve, or acute myocar dial infarction. 2. 0 - 3.0 3. Senior Case Manager al prosthesis hear t valves, recurre nt systemic emboli sm. 3.0 - 4.5 UR OSMOLALITY [id number] 22:40:00 Test Item Value Reference Range Interpretation Comments UR OSMOLALITY RANDOM (test code = 178 MOS/KG 300-1200 L OSMOU) Comments to Hydrology Professor: .GLUCOSE BEDSIDE [id number] 19:57:00 Test Item Value Reference Range Interpretation Comments GLUCOSE BEDSIDE TESTING (test code 119 MG/DL 60-99 H = GLUBED) GLUCOSE BEDSIDE [id number] 15:56:00 Test Item Value Reference Range Interpretation Comments GLUCOSE BEDSIDE TESTING (test code = 68 MG/DL 60-99 N GLUBED) GLUCOSE BEDSIDE [id number] 11:26:00 Test Item Value Reference Range Interpretation Comments GLUCOSE BEDSIDE TESTING (test code 136 MG/DL 60-99 H = GLUBED) BASIC METABOLIC [id number] 11:14:00 Test Item Value Reference Range Interpretation Comments SODIUM (test code = 126 MMOL/L 137-145 L NA) POTASSIUM (test code = 4.1 MMOL/L 3.5-5.1 N K) CHLORIDE (test code = 93 MMOL/L 98-107 L CL) CARBON DIOXIDE (test 26 MMOL/L 22-30 N code = CO2) ANION GAP (test code = 11 MMOL/L 14-24 L GAP) GLUCOSE (test code = 162 MG/DL 74-106 H GLU) BLOOD UREA NITROGEN 26 MG/DL 9-20 H (test code = BUN) GLOMERULAR FILTRATION 55 Report ing units: RATE (test code = GFR) ml/mi n/1.73 m2 (Modified MDRD Formula)Referen ce Range: > or = 6 0 ml/min/1.73 m2 CREATININE (test code 1.30 MG/DL 0.66-1.25 H = CREAT) CALCIUM (test code = 9.0 MG/DL 8.4-10.2 N CA) PROTHROMBIN [id number] 08:55:00 Test Item Value Reference Range Interpretation Comments PROTHROMBIN TIME 12.4 SECONDS 9.4-12.7 N PATIENT (test code = PTP) INTERNATIONAL NORMAL 1.1 0.86-1.14 N The INR is to be RATIO (test code = used only for INR) monitoring oral anticoagulantth erap y. INDICATION I NR VALUE ---- ---- ---- -------1. Prophylaxis, de ep venous thrombos is, including high risk surgery. 2.0 - 3.0 2. Prophylaxis, deep venous thrombosis, hip surgery, treatm ent for deep venous thrombosis or pulmonary prevention of systemic emboli sm in patients wit h valvular heart disease, atrial fibrillation, tissue heart va lve, or acute myocar dial infarction. 2.0 - 3.0 3. Senior Case Manager al prosthesis hear t valves, recurre nt systemic emboli sm. 3.0 - 4.5 RECOLLECTION NEEDED ON 12/16/21 AT 0702 BY [id number]: QNSNOTIFIED PATIENT CARE STAFF: CHELE Smith(AIRCRAFT NAVIGATOR)Comments to Hydrology Professor: PT IS ON COUMADIN GLUCOSE BEDSIDE [id number] 07:18:00 Test Item Value Reference Range Interpretation Comments GLUCOSE BEDSIDE TESTING (test code 112 MG/DL 60-99 H = GLUBED) GLUCOSE BEDSIDE [id number] 22:10:00 Test Item Value Reference Range Interpretation Comments GLUCOSE BEDSIDE TESTING (test code 116 MG/DL 60-99 H = GLUBED) GLUCOSE BEDSIDE [id number] 17:04:00 Test Item Value Reference Range Interpretation Comments GLUCOSE BEDSIDE TESTING (test code 142 MG/DL 60-99 H = GLUBED) COVID 19 Asymptomatic IH [id number] 16:54:00 Test Item Value Reference Range Interpretation Comments COVID 19 NEGATIVE Negative "Negative resul ts from Asymptomatic IH AG patients with symptom (test code = onset beyondfiv e days, COVNONPUIAG) should be treat ed as presumptive, andconfirmation with a molecular assay , if necessary forpa tient management may be performed. Nega tive results do notr ule out COVID-19 and sh ould not be used as the sole basisfor treatm ent or patient managem ent decisions, includinginfect ion control decisio ns. Negative result s should beconsidered in the context of a pa tients recent exposure s,history, and the presenc e of clinical signs and symptomsconsist ent with COVID-19.This t est detects both vi able andnon-viable S ARS-CoV and SARS CoV-2. Test performance dep endson the amount of virus (antigen) in the sample." UR OSMOLALITY [id number] 13:58:00 Test Item Value Reference Range Interpretation Comments UR OSMOLALITY RANDOM (test code = 574 MOS/KG 300-1200 N OSMOU) - XR CHEST [id number] 13:00:00 [facility] 1955 Sex: M Patient Name: GARCÍA MARRERO Unit No: [id number] EXAMS: CPT CODE: [id number] XR CHEST 1V 03099 CHEST 1 VIEW: INDICATION: s/p cab COMPARISON: Comparison is made with previous study dated 12/10/2021 Location:B2 A single portable AP view of the chest demonstrates cardiomegaly with a mildly elongated aorta. Hazy lung opacities are mildly improved. The visualized bony structures are unremarkable. IMPRESSION: 1. Improving CHF. at 1300 Reported and signed by: Jose Luis Don MD CC: Golden Awad MD; Irene JOHNSON Technologist: MILAN Bangura, RT(R) Transcrpt Date/Tm/Trnsp: 12/15/2021 (1300) [id number] Orig Print D/T: S: 12/15/2021 (1313) [facility] NAME: GARCÍA MARRERO [id number] PHYS: [place] [address] : 1955 AGE: 66 SEX: M LOC: [id number].[id number] PHONE #: [phone] EXAM DATE: 12/15/2021 STATUS: ADM IN FAX #: [phone] RADIOLOGY NO: PAGE 1 Signed ReportGLUCOSE BEDSIDE [id number] 11:57:00 Test Item Value Reference Range Interpretation Comments GLUCOSE BEDSIDE TESTING (test code 140 MG/DL 60-99 H = GLUBED) PROTHROMBIN [id number] 07:52:00 Test Item Value Reference Range Interpretation Comments PROTHROMBIN TIME 11.9 SECONDS 9.4-12.7 N PATIENT (test code = PTP) INTERNATIONAL NORMAL 1.1 0.86-1.14 N The INR is to be RATIO (test code = used only for INR) monitoring oral anticoagulantth erap y. INDICATION I NR VALUE ---- ---- ---- -------1. Prophylaxis, de ep venous thrombos is, including high risk surgery. 2.0 - 3.0 2. Prophylaxis, deep venous thrombosis, hip surgery, treatm ent for deep venous thrombosis or pulmonary prevention of systemic emboli sm in patients wit h valvular heart disease, atrial fibrillation, tissue heart va lve, or acute myocar dial infarction. 2. 0 - 3.0 3. Senior Case Manager al prosthesis hear t valves, recurre nt systemic emboli sm. 3.0 - 4.5 NO BLUE TOP TUBE SENTCBC W/AUTO [id number] 07:51:00 Test Item Value Reference Range Interpretation Comments WHITE BLOOD CELL (test code = 13.1 K/MM3 3.8-9.8 H WBC) RED BLOOD CELL (test code = 3.45 M/MM3 3.95-5.67 L RBC) HEMOGLOBIN (test code = HGB) 10.2 G/DL 12.4-16.7 L HEMATOCRIT (test code = HCT) 29.8 % 35.9-49.5 L MEAN CELL VOLUME (test code = 86 fL 81.7-96.1 N MCV) MEAN CELL HGB (test code = MCH) 29.6 pg 27.6-33.2 N MEAN CELL HGB CONCETRATION 34.2 % 32.9-35.5 N (test code = MCHC) RED CELL DISTRIBUTION WIDTH 12.4 % 12.1-15.2 N (test code = RDW) PLATELET COUNT (test code = 314 K/MM3 129-368 PLT) MEAN PLATELET VOLUME (test code 9.7 fl 7.4-10.4 N = MPV) NEUTROPHIL % (test code = NT%) 72.1 % 43-75 N IMMATURE GRANULOCYTE % (test 1.5 % 0.0-2.0 N code = IG%) LYMPHOCYTE % (test code = LY%) 16.5 % 14-44 N MONOCYTE % (test code = MO%) 8.2 % 4-13 N EOSINOPHIL % (test code = EO%) 1.5 % 0-6 N BASOPHIL % (test code = BA%) 0.2 % 0-2 N NUCLEATED RBC % (test code = 0.0 % 0-1.0 N NRBC%) NEUTROPHIL # (test code = NT#) 9.45 K/mm3 2.0-7.6 H IMMATURE GRANULOCYTE # (test 0.20 x10 3/uL 0-0.03 H code = IG#) LYMPHOCYTE # (test code = LY#) 2.16 K/mm3 1.0-3.8 N MONOCYTE # (test code = MO#) 1.08 K/mm3 0.1-0.8 H EOSINOPHIL # (test code = EO#) 0.20 K/mm3 0.0-0.2 N BASOPHIL # (test code = BA#) 0.03 K/mm3 0.0-0.2 N NUCLEATED RBC # (test code = 0.00 K/mm3 0.0-0.1 N NRBC#) Comments to Hydrology Professor: BLOOD SENT TO LABGLUCOSE BEDSIDE [id number] 07:26:00 Test Item Value Reference Range Interpretation Comments GLUCOSE BEDSIDE TESTING (test code 136 MG/DL 60-99 H = GLUBED) BASIC METABOLIC [id number] 05:06:00 Test Item Value Reference Range Interpretation Comments SODIUM (test code = 125 MMOL/L 137-145 L NA) POTASSIUM (test code = 4.3 MMOL/L 3.5-5.1 N K) CHLORIDE (test code = 93 MMOL/L 98-107 L CL) CARBON DIOXIDE (test 24 MMOL/L 22-30 N code = CO2) GLUCOSE (test code = 139 MG/DL 74-106 H GLU) BLOOD UREA NITROGEN 22 MG/DL 9-20 H (test code = BUN) GLOMERULAR FILTRATION > 60 Report ing units: RATE (test code = GFR) ml/mi n/1.73 m2 (Modified MDRD Formula)Referen ce Range: > or = 6 0 ml/min/1.73 m2 CREATININE (test code 1.20 MG/DL 0.66-1.25 N = CREAT) CALCIUM (test code = 9.0 MG/DL 8.4-10.2 N CA) GLUCOSE BEDSIDE [id number] 21:11:00 Test Item Value Reference Range Interpretation Comments GLUCOSE BEDSIDE TESTING (test code 174 MG/DL 60-99 H = GLUBED) GLUCOSE BEDSIDE [id number] 21:06:00 Test Item Value Reference Range Interpretation Comments GLUCOSE BEDSIDE TESTING (test code 146 MG/DL 60-99 H = GLUBED) BASIC METABOLIC [id number] 16:29:00 Test Item Value Reference Range Interpretation Comments SODIUM (test code = 125 MMOL/L 137-145 L NA) POTASSIUM (test code = 4.9 MMOL/L 3.5-5.1 N K) CHLORIDE (test code = 94 MMOL/L 98-107 L CL) CARBON DIOXIDE (test 25 MMOL/L 22-30 N code = CO2) ANION GAP (test code = 11 MMOL/L 14-24 L GAP) GLUCOSE (test code = 153 MG/DL 74-106 H GLU) BLOOD UREA NITROGEN 25 MG/DL 9-20 H (test code = BUN) GLOMERULAR FILTRATION > 60 Report ing units: RATE (test code = GFR) ml/mi n/1.73 m2 (Modified MDRD Formula)Referen ce Range: > or = 6 0 ml/min/1.73 m2 CREATININE (test code 1.10 MG/DL 0.66-1.25 N = CREAT) CALCIUM (test code = 8.4 MG/DL 8.4-10.2 N CA) GLUCOSE BEDSIDE [id number] 10:49:00 Test Item Value Reference Range Interpretation Comments GLUCOSE BEDSIDE TESTING (test code 199 MG/DL 60-99 H = GLUBED) GLUCOSE BEDSIDE [id number] 06:56:00 Test Item Value Reference Range Interpretation Comments GLUCOSE BEDSIDE TESTING (test code 108 MG/DL 60-99 H = GLUBED) BASIC METABOLIC [id number] 04:55:00 Test Item Value Reference Range Interpretation Comments SODIUM (test code = 128 MMOL/L 137-145 L NA) POTASSIUM (test code = 3.9 MMOL/L 3.5-5.1 N K) CHLORIDE (test code = 97 MMOL/L 98-107 L CL) CARBON DIOXIDE (test 27 MMOL/L 22-30 N code = CO2) GLUCOSE (test code = 124 MG/DL 74-106 H GLU) BLOOD UREA NITROGEN 24 MG/DL 9-20 H (test code = BUN) GLOMERULAR FILTRATION > 60 Report ing units: RATE (test code = GFR) ml/mi n/1.73 m2 (Modified MDRD Formula)Referen ce Range: > or = 6 0 ml/min/1.73 m2 CREATININE (test code 1.10 MG/DL 0.66-1.25 N = CREAT) CALCIUM (test code = 8.7 MG/DL 8.4-10.2 N CA) [id number] 04:55:00 Test Item Value Reference Range Interpretation Comments MAGNESIUM (test code = MAG) 1.8 MG/DL 1.6-2.3 N PROTHROMBIN [id number] 04:54:00 Test Item Value Reference Range Interpretation Comments PROTHROMBIN TIME 11.6 SECONDS 9.4-12.7 N PATIENT (test code = PTP) INTERNATIONAL NORMAL 1.0 0.86-1.14 N The INR is to be RATIO (test code = used only for INR) monitoring oral anticoagulantth erap y. INDICATION I NR VALUE ---- ---- ---- -------1. Prophylaxis, de ep venous thrombos is, including high risk surgery. 2.0 - 3.0 2. Prophylaxis, deep venous thrombosis, hip surgery, treatm ent for deep venous thrombosis or pulmonary prevention of systemic emboli sm in patients wit h valvular heart disease, atrial fibrillation, tissue heart va lve, or acute myocar dial infarction. 2.0 - 3.0 3. Senior Case Manager al prosthesis hear t valves, recurre nt systemic emboli sm. 3.0 - 4.5 CBC W/AUTO [id number] 04:41:00 Test Item Value Reference Range Interpretation Comments WHITE BLOOD CELL (test code = 11.2 K/MM3 3.8-9.8 H WBC) RED BLOOD CELL (test code = 3.09 M/MM3 3.95-5.67 L RBC) HEMOGLOBIN (test code = HGB) 9.1 G/DL 12.4-16.7 L HEMATOCRIT (test code = HCT) 27.4 % 35.9-49.5 L MEAN CELL VOLUME (test code = 89 fL 81.7-96.1 N MCV) MEAN CELL HGB (test code = MCH) 29.4 pg 27.6-33.2 N MEAN CELL HGB CONCETRATION 33.2 % 32.9-35.5 N (test code = MCHC) RED CELL DISTRIBUTION WIDTH 12.5 % 12.1-15.2 N (test code = RDW) PLATELET COUNT (test code = 238 K/MM3 129-368 N PLT) MEAN PLATELET VOLUME (test code 10.2 fl 7.4-10.4 N = MPV) NEUTROPHIL % (test code = NT%) 65.2 % 43-75 N IMMATURE GRANULOCYTE % (test 1.2 % 0.0-2.0 N code = IG%) LYMPHOCYTE % (test code = LY%) 21.2 % 14-44 N MONOCYTE % (test code = MO%) 9.2 % 4-13 N EOSINOPHIL % (test code = EO%) 2.8 % 0-6 N BASOPHIL % (test code = BA%) 0.4 % 0-2 N NUCLEATED RBC % (test code = 0.0 % 0-1.0 N NRBC%) NEUTROPHIL # (test code = NT#) 7.32 K/mm3 2.0-7.6 N IMMATURE GRANULOCYTE # (test 0.13 x10 3/uL 0-0.03 H code = IG#) LYMPHOCYTE # (test code = LY#) 2.38 K/mm3 1.0-3.8 N MONOCYTE # (test code = MO#) 1.03 K/mm3 0.1-0.8 H EOSINOPHIL # (test code = EO#) 0.31 K/mm3 0.0-0.2 H BASOPHIL # (test code = BA#) 0.04 K/mm3 0.0-0.2 N NUCLEATED RBC # (test code = 0.00 K/mm3 0.0-0.1 N NRBC#) GLUCOSE BEDSIDE [id number] 19:55:00 Test Item Value Reference Range Interpretation Comments GLUCOSE BEDSIDE TESTING (test code 134 MG/DL 60-99 H = GLUBED) GLUCOSE BEDSIDE [id number] 17:20:00 Test Item Value Reference Range Interpretation Comments GLUCOSE BEDSIDE TESTING (test code 169 MG/DL 60-99 H = GLUBED) GLUCOSE BEDSIDE [id number] 11:58:00 Test Item Value Reference Range Interpretation Comments GLUCOSE BEDSIDE TESTING (test code 168 MG/DL 60-99 H = GLUBED) GLUCOSE BEDSIDE [id number] 06:25:00 Test Item Value Reference Range Interpretation Comments GLUCOSE BEDSIDE TESTING (test code 113 MG/DL 60-99 H = GLUBED) BASIC METABOLIC [id number] 06:23:00 Test Item Value Reference Range Interpretation Comments SODIUM (test code = 134 MMOL/L 137-145 L NA) POTASSIUM (test code = 3.9 MMOL/L 3.5-5.1 N K) CHLORIDE (test code = 101 MMOL/L 98-107 N CL) CARBON DIOXIDE (test 26 MMOL/L 22-30 N code = CO2) ANION GAP (test code = 11 MMOL/L 14-24 L GAP) GLUCOSE (test code = 113 MG/DL 74-106 H GLU) BLOOD UREA NITROGEN 25 MG/DL 9-20 H (test code = BUN) GLOMERULAR FILTRATION > 60 Report ing units: RATE (test code = GFR) ml/mi n/1.73 m2 (Modified MDRD Formula)Referen ce Range: > or = 6 0 ml/min/1.73 m2 CREATININE (test code 1.10 MG/DL 0.66-1.25 N = CREAT) CALCIUM (test code = 8.8 MG/DL 8.4-10.2 N CA) [id number] 06:23:00 Test Item Value Reference Range Interpretation Comments MAGNESIUM (test code = MAG) 1.6 MG/DL 1.6-2.3 N PROTHROMBIN [id number] 06:12:00 Test Item Value Reference Range Interpretation Comments PROTHROMBIN TIME 11.6 SECONDS 9.4-12.7 N PATIENT (test code = PTP) INTERNATIONAL NORMAL 1.0 0.86-1.14 N The INR is to be RATIO (test code = used only for INR) monitoring oral anticoagulantth erap y. INDICATION I NR VALUE ---- ---- ---- -------1. Prophylaxis, de ep venous thrombos is, including high risk surgery. 2.0 - 3.0 2. Prophylaxis, deep venous thrombosis, hip surgery, treatm ent for deep venous thrombosis or pulmonary prevention of systemic emboli sm in patients wit h valvular heart disease, atrial fibrillation, tissue heart va lve, or acute myocar dial infarction. 2.0 - 3.0 3. Senior Case Manager al prosthesis hear t valves, recurr ent systemic emboli sm. 3.0 - 4.5 CBC W/AUTO [id number] 06:04:00 Test Item Value Reference Range Interpretation Comments WHITE BLOOD CELL (test code = 11.0 K/MM3 3.8-9.8 H WBC) RED BLOOD CELL (test code = 3.14 M/MM3 3.95-5.67 L RBC) HEMOGLOBIN (test code = HGB) 9.4 G/DL 12.4-16.7 L HEMATOCRIT (test code = HCT) 28.6 % 35.9-49.5 L MEAN CELL VOLUME (test code = 91 fL 81.7-96.1 N MCV) MEAN CELL HGB (test code = MCH) 29.9 pg 27.6-33.2 N MEAN CELL HGB CONCETRATION 32.9 % 32.9-35.5 N (test code = MCHC) RED CELL DISTRIBUTION WIDTH 12.9 % 12.1-15.2 N (test code = RDW) PLATELET COUNT (test code = 234 K/MM3 129-368 N PLT) MEAN PLATELET VOLUME (test code 10.4 fl 7.4-10.4 N = MPV) NEUTROPHIL % (test code = NT%) 61.3 % 43-75 N IMMATURE GRANULOCYTE % (test 0.7 % 0.0-2.0 N code = IG%) LYMPHOCYTE % (test code = LY%) 24.8 % 14-44 N MONOCYTE % (test code = MO%) 9.8 % 4-13 N EOSINOPHIL % (test code = EO%) 3.1 % 0-6 N BASOPHIL % (test code = BA%) 0.3 % 0-2 N NUCLEATED RBC % (test code = 0.0 % 0-1.0 N NRBC%) NEUTROPHIL # (test code = NT#) 6.72 K/mm3 2.0-7.6 N IMMATURE GRANULOCYTE # (test 0.08 x10 3/uL 0-0.03 H code = IG#) LYMPHOCYTE # (test code = LY#) 2.72 K/mm3 1.0-3.8 N MONOCYTE # (test code = MO#) 1.08 K/mm3 0.1-0.8 H EOSINOPHIL # (test code = EO#) 0.34 K/mm3 0.0-0.2 H BASOPHIL # (test code = BA#) 0.03 K/mm3 0.0-0.2 N NUCLEATED RBC # (test code = 0.00 K/mm3 0.0-0.1 N NRBC#) GLUCOSE BEDSIDE [id number] 19:57:00 Test Item Value Reference Range Interpretation Comments GLUCOSE BEDSIDE TESTING (test code 194 MG/DL 60-99 H = GLUBED) GLUCOSE BEDSIDE [id number] 17:47:00 Test Item Value Reference Range Interpretation Comments GLUCOSE BEDSIDE TESTING (test code 175 MG/DL 60-99 H = GLUBED) BASIC METABOLIC [id number] 15:08:00 Test Item Value Reference Range Interpretation Comments SODIUM (test code = 137 MMOL/L 137-145 N NA) POTASSIUM (test code = 3.9 MMOL/L 3.5-5.1 N K) CHLORIDE (test code = 103 MMOL/L 98-107 N CL) CARBON DIOXIDE (test 27 MMOL/L 22-30 N code = CO2) ANION GAP (test code = 11 MMOL/L 14-24 L GAP) GLUCOSE (test code = 183 MG/DL 74-106 H GLU) BLOOD UREA NITROGEN 22 MG/DL 9-20 H (test code = BUN) GLOMERULAR FILTRATION > 60 Report ing units: RATE (test code = GFR) ml/mi n/1.73 m2 (Modified MDRD Formula)Referen ce Range: > or = 6 0 ml/min/1.73 m2 CREATININE (test code 1.20 MG/DL 0.66-1.25 N = CREAT) CALCIUM (test code = 8.7 MG/DL 8.4-10.2 N CA) "TO BE COLLECTED BY NURSE"NOTIFIED RN: JACINTO 12/12/21 AT 1418 BY Hannah Irwin AnPROTHROMBIN [id number] 13:03:00 Test Item Value Reference Range Interpretation Comments PROTHROMBIN TIME 11.9 SECONDS 9.4-12.7 N PATIENT (test code = PTP) INTERNATIONAL NORMAL 1.1 0.86-1.14 N The INR is to be RATIO (test code = used only for INR) monitoring oral anticoagulantth erap y. INDICATION INR VALUE ---- ---- ---- -------1. Prophylaxis, de ep venous thrombos is, including high risk surgery. 2.0 - 3.0 2. Prophylaxis, deep venous thrombosis, hip surgery, treatm ent for deep venous thrombosis or pulmonary prevention of systemic emboli sm in patients wit h valvular heart disease, atrial fibrillation, tissue heart va lve, or acute myocar dial infarction. 2.0 - 3.0 3. Senior Case Manager al prosthesis hear t valves, recurre nt systemic emboli sm. 3.0 - 4.5 "TO BE COLLECTED BY NURSE"NOTIFIED RN: VINCENZO OROZCO 12/12/21 AT 1222 BY Cuauhtemoc Alejo [id number] 12:11:00 Test Item Value Reference Range Interpretation Comments T3 FREE (test code = T3F) 2.91 PG/ML 2.77-5.27 N THYROID STIMULATING [id number] 12:11:00 Test Item Value Reference Range Interpretation Comments THYROID STIMULATING 1.840 MIU/L 0.465-4.68 N Please b e aware that HORMONE (test code = bias re sults for TSH TSH) may occur forpa tient who are taking Biotin suppleme nts. ADRENOCORTICOTROPIC [id number] 12:11:00 Test Item Value Reference Range Interpretation Comments ADRENOCORTICOTROPIC HORMONE 33.3 pg/mL 7.2-63.3 ACTH reference (test code = ACTH) interval for samples collected between 7 and10 AM.Performed At : [facility] [address] [id number] Julien Miller MD Ph:[phone] GLUCOSE BEDSIDE [id number] 11:27:00 Test Item Value Reference Range Interpretation Comments GLUCOSE BEDSIDE TESTING (test code 241 MG/DL 60-99 H = GLUBED) GLUCOSE BEDSIDE [id number] 06:45:00 Test Item Value Reference Range Interpretation Comments GLUCOSE BEDSIDE TESTING (test code 105 MG/DL 60-99 H = GLUBED) BASIC METABOLIC [id number] 05:23:00 Test Item Value Reference Range Interpretation Comments SODIUM (test code = 140 MMOL/L 137-145 N NA) POTASSIUM (test code = 3.7 MMOL/L 3.5-5.1 N K) CHLORIDE (test code = 105 MMOL/L 98-107 N CL) CARBON DIOXIDE (test 28 MMOL/L 22-30 N code = CO2) ANION GAP (test code = 11 MMOL/L 14-24 L GAP) GLUCOSE (test code = 111 MG/DL 74-106 H GLU) BLOOD UREA NITROGEN 19 MG/DL 9-20 (test code = BUN) GLOMERULAR FILTRATION > 60 Report ing units: RATE (test code = GFR) ml/mi n/1.73 m2 (Modified MDRD Formula)Referen ce Range: > or = 6 0 ml/min/1.73 m2 CREATININE (test code 1.20 MG/DL 0.66-1.25 N = CREAT) CALCIUM (test code = 9.3 MG/DL 8.4-10.2 N CA) [id number] 05:23:00 Test Item Value Reference Range Interpretation Comments MAGNESIUM (test code = MAG) 1.8 MG/DL 1.6-2.3 N CBC W/AUTO [id number] 05:10:00 Test Item Value Reference Range Interpretation Comments WHITE BLOOD CELL (test code = 9.7 K/MM3 3.8-9.8 N WBC) RED BLOOD CELL (test code = 3.17 M/MM3 3.95-5.67 L RBC) HEMOGLOBIN (test code = HGB) 9.5 G/DL 12.4-16.7 L HEMATOCRIT (test code = HCT) 29.0 % 35.9-49.5 L MEAN CELL VOLUME (test code = 92 fL 81.7-96.1 N MCV) MEAN CELL HGB (test code = MCH) 30.0 pg 27.6-33.2 N MEAN CELL HGB CONCETRATION 32.8 % 32.9-35.5 L (test code = MCHC) RED CELL DISTRIBUTION WIDTH 12.7 % 12.1-15.2 N (test code = RDW) PLATELET COUNT (test code = 225 K/MM3 129-368 PLT) MEAN PLATELET VOLUME (test code 10.4 fl 7.4-10.4 N = MPV) NEUTROPHIL % (test code = NT%) 59.0 % 43-75 N IMMATURE GRANULOCYTE % (test 0.9 % 0.0-2.0 N code = IG%) LYMPHOCYTE % (test code = LY%) 26.8 % 14-44 N MONOCYTE % (test code = MO%) 10.2 % 4-13 N EOSINOPHIL % (test code = EO%) 2.8 % 0-6 N BASOPHIL % (test code = BA%) 0.3 % 0-2 N NUCLEATED RBC % (test code = 0.0 % 0-1.0 N NRBC%) NEUTROPHIL # (test code = NT#) 5.71 K/mm3 2.0-7.6 N IMMATURE GRANULOCYTE # (test 0.09 x10 3/uL 0-0.03 H code = IG#) LYMPHOCYTE # (test code = LY#) 2.59 K/mm3 1.0-3.8 N MONOCYTE # (test code = MO#) 0.99 K/mm3 0.1-0.8 H EOSINOPHIL # (test code = EO#) 0.27 K/mm3 0.0-0.2 H BASOPHIL # (test code = BA#) 0.03 K/mm3 0.0-0.2 N NUCLEATED RBC # (test code = 0.00 K/mm3 0.0-0.1 N NRBC#) GLUCOSE BEDSIDE [id number] 21:24:00 Test Item Value Reference Range Interpretation Comments GLUCOSE BEDSIDE TESTING (test code 159 MG/DL 60-99 H = GLUBED) GLUCOSE BEDSIDE [id number] 16:21:00 Test Item Value Reference Range Interpretation Comments GLUCOSE BEDSIDE TESTING (test code 131 MG/DL 60-99 H = GLUBED) POC ARTERIAL BLOOD [id number] 14:15:00 Test Item Value Reference Range Interpretation Comments POC ARTERIAL BLOOD GAS PH 7.359 7.35-7.45 N (test code = POCPHA) POC ARTERIAL BLOOD GAS PCO2 43.8 mmHg 35.0-45.0 N (test code = CXFENL0V) POC ARTERIAL BLOOD GAS PO2 377.7 75.0-100.0 HH (test code = MAGIL5N) POC HCO3 ARTERIAL (test 24.7 MMOL/L 20.0-26.0 N code = JRKVSH0Q) POC BASE EXCESS (test code -0.8 MMOL/L -3.0-3.0 N = POCBEA) POC O2 SATURATION (test 100.0 % 92.0-98.5 H code = POCO2S) SODIUM (test code = NA/ABG) 141 MMOL/L 135-141 N POTASSIUM (test code = 4.3 MMOL/L 3.7-4.7 N K/ABG) CHLORIDE (test code = 108 MEQ/L CL/ABG) POC IONIZED CALCIUM (test 1.20 MMOL/L 1.13-1.32 N code = POCCA) POC GLUCOSE (test code = 134 MG/DL 60-99 H POCGLU) POC SAMPLE SOURCE (test Arterial Descript Specimen code = POCSAMPLE) LACTIC ACID POC (test code < 0.30 mmol/L 0.7-2.0 L = LACTP) GLUCOSE BEDSIDE [id number] 10:58:00 Test Item Value Reference Range Interpretation Comments GLUCOSE BEDSIDE TESTING (test code 210 MG/DL 60-99 H = GLUBED) COMPREHENSIVE METABOLIC [id number] 09:55:00 Test Item Value Reference Range Interpretation Comments SODIUM (test code 137 MMOL/L 137-145 N = NA) POTASSIUM (test 3.8 MMOL/L 3.5-5.1 N code = K) CHLORIDE (test 104 MMOL/L 98-107 N code = CL) CARBON DIOXIDE 28 MMOL/L 22-30 N (test code = CO2) ANION GAP (test 9 MMOL/L 14-24 L code = GAP) GLUCOSE (test 136 MG/DL 74-106 H code = GLU) BLOOD UREA 16 MG/DL 9-20 N NITROGEN (test code = BUN) GLOMERULAR > 60 Reporting units : FILTRATION RATE ml/min/1.73 m2 (Modified (test code = GFR) MDRD Formu la)Reference Range: > or = 6 0 ml/min/1.73 m2 CREATININE (test 1.10 MG/DL 0.66-1.25 N code = CREAT) TOTAL PROTEIN 6.7 G/DL 6.2-7.6 N [facility] Clinical Diagnostic (test code = has made us yao re of PROT) newinformation regarding the potential i nterference ofEltrombopag ( a bone marrow stimulan t used to treatthrombocyt onmenia and aplastic anemia ) with specific assays on the Vitros 5600 of which Total Protein is one of thoseassays per formed in our lab.Interfe rence testing perform ed at Orth[facility] determined that Eltrombopag does interfere with Vitros Total Protein asfollowsEltrom bopag Interference fo r Vitros Product Total Protein:======= Eltrombopag Max Observed Av lyndsey Buenrostro on Concentration Concentration== ==== 2.5 mg/dl 6.0 g/dl +0.41 +0.34 3.5 mg/dl 6.0 g /dl +0.50 +0.45 5 mg/dl 6 .0 g/dl +0.73 +0.65 2.5 mg/dl 8.0 g/dl +0.44 +0.4 1 3.5 mg/dl 8.0 g/dl +0.55 +0.52 5 mg/dl 8.0 g/dl +0.86 +0.77 ALBUMIN (test 3.4 G/DL 3.5-5.0 L code = ALB) CALCIUM (test 9.0 MG/DL 8.4-10.2 N code = CA) BILIRUBIN TOTAL 0.6 MG/DL 0.2-1.3 N Eltrombopag Interference (test code = for Vitros Prod uct TBil, BILT) BuBc: Assa y Eltrombopag Xiomy lyte/ Max Observed Avg. B ias Concentration C oncentration Concentration== ====TBil 7mg/dl TBil/ 1. 2mg/dl +0.23mg.dl +0.2 0mg/dlBuBc 3.5mg/dl Bu/0.8 mg/dl +0.25mg/dl +0.2 4mg/dlBuBc 7 mg/dl Bu/14.2m g/dl +0.38mg/dl +0.2 5mg/dlBuBc 5mg/dl Bc/0mg/d l +0.25mg/dl +0.15mg/dlBuBc 3.5mg/dl Bc/2.8mg/dl +0. 25mg/dl +0.23mg/dl SGOT/AST (test 35 UNITS/L 17-59 N code = AST) SGPT/ALT (test 21 UNITS/L 0-49 code = ALT) ALKALINE 74 UNITS/L 38-126 N PHOSPHATASE (test code = ALKP) OSMOLALITY [id number] 09:55:00 Test Item Value Reference Range Interpretation Comments OSMOLALITY SERUM (test code = 290.5 mOsm/kg 275-295 N OSMO) T4 [id number] 08:14:00 Test Item Value Reference Range Interpretation Comments T4 FREE (test code = T4F) 1.1 NG/DL 0.78-2.19 N CORTISOL [id number] 08:14:00 Test Item Value Reference Range Interpretation Comments CORTISOL AM (test code = CORTAM) 19.10 ug/dL 4.46-22.7 N UR SODIUM [id number] 05:43:00 Test Item Value Reference Range Interpretation Comments UR SODIUM RANDOM (test code = PB) 127 MMOL/L 27-287 N UR OSMOLALITY [id number] 05:37:00 Test Item Value Reference Range Interpretation Comments UR OSMOLALITY RANDOM (test code = 309 MOS/KG 300-1200 OSMOU) CBC W/AUTO [id number] 05:29:00 Test Item Value Reference Range Interpretation Comments WHITE BLOOD CELL (test code = 9.1 K/MM3 3.8-9.8 N WBC) RED BLOOD CELL (test code = 3.17 M/MM3 3.95-5.67 L RBC) HEMOGLOBIN (test code = HGB) 9.5 G/DL 12.4-16.7 L HEMATOCRIT (test code = HCT) 29.0 % 35.9-49.5 L MEAN CELL VOLUME (test code = 92 fL 81.7-96.1 N MCV) MEAN CELL HGB (test code = MCH) 30.0 pg 27.6-33.2 N MEAN CELL HGB CONCETRATION 32.8 % 32.9-35.5 L (test code = MCHC) RED CELL DISTRIBUTION WIDTH 12.5 % 12.1-15.2 N (test code = RDW) PLATELET COUNT (test code = 163 K/MM3 129-368 N PLT) MEAN PLATELET VOLUME (test code 10.5 fl 7.4-10.4 H = MPV) NEUTROPHIL % (test code = NT%) 61.0 % 43-75 N IMMATURE GRANULOCYTE % (test 0.4 % 0.0-2.0 N code = IG%) LYMPHOCYTE % (test code = LY%) 27.2 % 14-44 N MONOCYTE % (test code = MO%) 9.1 % 4-13 N EOSINOPHIL % (test code = EO%) 2.1 % 0-6 N BASOPHIL % (test code = BA%) 0.2 % 0-2 N NUCLEATED RBC % (test code = 0.0 % 0-1.0 N NRBC%) NEUTROPHIL # (test code = NT#) 5.54 K/mm3 2.0-7.6 N IMMATURE GRANULOCYTE # (test 0.04 x10 3/uL 0-0.03 H code = IG#) LYMPHOCYTE # (test code = LY#) 2.47 K/mm3 1.0-3.8 N MONOCYTE # (test code = MO#) 0.83 K/mm3 0.1-0.8 H EOSINOPHIL # (test code = EO#) 0.19 K/mm3 0.0-0.2 N BASOPHIL # (test code = BA#) 0.02 K/mm3 0.0-0.2 N NUCLEATED RBC # (test code = 0.00 K/mm3 0.0-0.1 N NRBC#) UR SODIUM [id number] 02:10:00 Test Item Value Reference Range Interpretation Comments UR SODIUM RANDOM (test code = PB) 125 MMOL/L 27-287 N UR OSMOLALITY [id number] 02:10:00 Test Item Value Reference Range Interpretation Comments UR OSMOLALITY RANDOM (test code = 393 MOS/KG 300-1200 N OSMOU) GLUCOSE BEDSIDE [id number] 17:34:00 Test Item Value Reference Range Interpretation Comments GLUCOSE BEDSIDE TESTING (test code 148 MG/DL 60-99 H = GLUBED) - CT HD/BR W W/O [id number] 11:13:00 [facility] : 1955 Sex: M Patient Name: GARCÍA MARRERO Unit No: [id number] EXAMS: CPT CODE: [id number] CT HD/BR W W/O CONT 48837 CT head with and without contrast 12/10/2021 11:09 AM CLINICAL HISTORY: Pituitary mass TECHNIQUE: Axial noncontrast and contrast-enhanced CT images of the head were obtained. This examination was performed according to our departmental dose optimization program, which includes automated exposure control, adjustment of the mA and/or kV according to patient size, and/or use of iterative reconstruction technique. COMPARISON: CT brain without contrast 12/09/2021 LOCATION: W1 FINDINGS: There is a pituitarymacroadenoma measuring 22 mm AP by 2 mm transverse by 25 mm craniocaudal. There is suprasellar extension, with mass effect on the optic chiasm. There is right parasellar extension with cavernous sinus invasion. There is posterior parasellar extension along the clivus. There is suspected encasement of the infraclinoid right internal carotid artery, without occlusion. Tumor approaches, but does not encase the basilar or right posterior cerebral arteries. There is no compressive edema. There is an age-indeterminate infarct in the posterior paramedian right frontal lobe. There is no hemorrhage, hydrocephalus, or extra-axial collection. The paranasal sinuses and tympanomastoid cavities are clear. The skull is otherwise intact. IMPRESSION: 1. 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 2. 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 at 1113 Reported and signed by: Pal Osman MD CC: Golden Awad MD; Madalyn Cueto MD Technologist: Teresa Santamaria CTDI: DLP: Trnscrpt: 12/10/2021 (1113) [email or web address] [facility] NAME: GARCÍA MARRERO [id number] PHYS: [place] [address] : 1955 AGE: 66 SEX: M LOC: Z.SI02 A PHONE #: [phone] EXAM DATE: 12/10/2021 STATUS: ADM IN FAX #: [phone] #: D/C DT PAGE 1 Signed Report Patient Name: GARCÍA MARRERO Unit No: [id number] EXAMS: CPT CODE: [id number] CT HD/BR W W/O CONT 32266 (Continued) Orig Print D/T: S: 12/10/2021 (1116) [facility] NAME: GARCÍA MARRERO [id number] PHYS: [place] [address] : 1955 AGE: 66 SEX: M LOC: Z.SI02 A PHONE #: [phone] EXAM DATE: 12/10/2021 STATUS: ADM IN FAX #: [phone] RAD #: D/C DT PAGE 2 Signed ReportGLUCOSE BEDSIDE [id number] 10:58:00 Test Item Value Reference Range Interpretation Comments GLUCOSE BEDSIDE TESTING (test code 168 MG/DL 60-99 H = GLUBED) - XR CHEST [id number] 08:15:00 [facility] : 1955 Sex: M Patient Name: GARCÍA MARRERO Unit No: [id number] EXAMS: CPT CODE: [id number] XR CHEST 1V 34227 EXAM: - XRCHEST 1V Location: T18 HISTORY: S/P CABG COMPARISON: 12/09/2021 FINDINGS: Single AP view of the chestis provided. Heart size and vascularity are unchanged. Increased right basilar opacities. No effusion. No pneumothorax, No acute osseous abnormality. IMPRESSION: 1. Increased right basilar opacities, m ost likely atelectasis with a small effusion. at 0815 Reported and signed by: Atul Galvin MD CC: Golden Awad MD Technologist: Smith Lopez, RT(R) Transcrpt Date/Tm/Trnsp: 12/10/2021 (08) [email or web address] Orig Print D/T: S: 12/10/2021 (818) [facility] NAME: GARCÍA MARRERO ANDREW [id number] PHYS: [place] [address] : 1955 AGE: 66 SEX: M LOC: Z.SI02 A PHONE #: [phone] EXAM DATE: 12/10/2021 STATUS: ADM IN FAX #: [phone] RADIOLOGY NO: PAGE 1 Signed ReportCBC W/AUTO [id number] 07:48:00 Test Item Value Reference Range Interpretation Comments WHITE BLOOD CELL (test code = 10.1 K/MM3 3.8-9.8 H WBC) RED BLOOD CELL (test code = 3.16 M/MM3 3.95-5.67 L RBC) HEMOGLOBIN (test code = HGB) 9.5 G/DL 12.4-16.7 L HEMATOCRIT (test code = HCT) 29.8 % 35.9-49.5 L MEAN CELL VOLUME (test code = 94 fL 81.7-96.1 N MCV) MEAN CELL HGB (test code = MCH) 30.1 pg 27.6-33.2 N MEAN CELL HGB CONCETRATION 31.9 % 32.9-35.5 L (test code = MCHC) RED CELL DISTRIBUTION WIDTH 12.8 % 12.1-15.2 N (test code = RDW) PLATELET COUNT (test code = 145 K/MM3 129-368 PLT) MEAN PLATELET VOLUME (test code 11.1 fl 7.4-10.4 H = MPV) NEUTROPHIL % (test code = NT%) 63.7 % 43-75 N IMMATURE GRANULOCYTE % (test 0.3 % 0.0-2.0 N code = IG%) LYMPHOCYTE % (test code = LY%) 24.6 % 14-44 N MONOCYTE % (test code = MO%) 9.5 % 4-13 N EOSINOPHIL % (test code = EO%) 1.6 % 0-6 N BASOPHIL % (test code = BA%) 0.3 % 0-2 N NUCLEATED RBC % (test code = 0.0 % 0-1.0 N NRBC%) NEUTROPHIL # (test code = NT#) 6.43 K/mm3 2.0-7.6 N IMMATURE GRANULOCYTE # (test 0.03 x10 3/uL 0-0.03 N code = IG#) LYMPHOCYTE # (test code = LY#) 2.48 K/mm3 1.0-3.8 N MONOCYTE # (test code = MO#) 0.96 K/mm3 0.1-0.8 H EOSINOPHIL # (test code = EO#) 0.16 K/mm3 0.0-0.2 N BASOPHIL # (test code = BA#) 0.03 K/mm3 0.0-0.2 N NUCLEATED RBC # (test code = 0.00 K/mm3 0.0-0.1 N NRBC#) Comments to Hydrology Professor: BLOOD IN LABBASIC METABOLIC [id number] 07:31:00 Test Item Value Reference Range Interpretation Comments SODIUM (test code = 137 MMOL/L 137-145 N NA) POTASSIUM (test code = 3.8 MMOL/L 3.5-5.1 N K) CHLORIDE (test code = 102 MMOL/L 98-107 N CL) CARBON DIOXIDE (test 31 MMOL/L 22-30 H code = CO2) ANION GAP (test code = 8 MMOL/L 14-24 L GAP) GLUCOSE (test code = 136 MG/DL 74-106 H GLU) BLOOD UREA NITROGEN 17 MG/DL 9-20 N (test code = BUN) GLOMERULAR FILTRATION > 60 Report ing units: RATE (test code = GFR) ml/mi n/1.73 m2 (Modified MDRD Formula)Referen ce Range: > or = 6 0 ml/min/1.73 m2 CREATININE (test code 1.10 MG/DL 0.66-1.25 N = CREAT) CALCIUM (test code = 9.0 MG/DL 8.4-10.2 N CA) Comments to Hydrology Professor: BLOOD IN LABPROTHROMBIN [id number] 05:19:00 Test Item Value Reference Range Interpretation Comments PROTHROMBIN TIME 11.6 SECONDS 9.4-12.7 N PATIENT (test code = PTP) INTERNATIONAL NORMAL 1.0 0.86-1.14 N The INR is to be RATIO (test code = used only for INR) monitoring oral anticoagulantth erap y. INDICATION I NR VALUE ---- ---- ---- -------1. Prophylaxis, de ep venous thrombos is, including high risk surgery. 2.0 - 3.0 2. Prophylaxis, deep venous thrombosis, hip surgery, treatm ent for deep venous thrombosis or pulmonary prevention of systemic emboli sm in patients wit h valvular heart disease, atrial fibrillation, tissue heart va lve, or acute myocar dial infarction. 2.0 - 3.0 3. Senior Case Manager al prosthesis hear t valves, recurre nt systemic emboli sm. 3.0 - 4.5 GLUCOSE BEDSIDE [id number] 21:11:00 Test Item Value Reference Range Interpretation Comments GLUCOSE BEDSIDE TESTING 141 MG/DL 60-99 H Noti fied Nurse~ (test code = GLUBED) - CT HEAD/BRAIN W/O [id number] 18:02:00 [facility] : 1955 Sex: M Patient Name: GARCÍA MARRERO Unit No: [id number] EXAMS: CPT CODE: [id number] CT HEAD/BRAIN W/O CONT 80063 HISTORY: PARALYSIS TECHNIQUE: Noncontrast 2.[address] of the head. One or more of the followingdose reduction techniques were used: Automated exposure control, adjustment of the mA and/or kV according to patient size, and/or utilization of iterative reconstruction technique. DLP 727 mGy-cm. RAYO RISON: Previous day FINDINGS: Subtle white matter hypodensity of the superior right frontal gyrus, possible ischemia of indeterminate age. No acute intracranial hemorrhage. Mild parenchymal atrophy. Nohydrocephalus. Stable appearance of sellar/suprasellar mass with probable cavernous sinus involvement on the right. No extra-axial fluid collection. Mild left maxillary sinus mucosal thickening. Mastoid air cells and middle ear cavities are clear. Orbital contents are unremarkable. Calvarium and skullbase are intact. IMPRESSION: Subtle white matter hypodensity of the superior right frontal gyrus, possible ischemia of indeterminate age. Correlate with MRI. Stable appearance of sellar/suprasellar mass with probable cavernous sinus involvement on the right. LOCATION: H81 at 1802 Reported and signed by: Brittany Frost DO CC: Golden Awad MD; Madalyn Cueto MD Technologist: Cristopher Pastrana (RT) (R) CTDI: DLP: Trnscrpt: 12/09/2021 (1802) [id number] [place] NAME: GARCÍA MARRERO [id number] PHYS: [place] [address] : 1955 AGE: 66 SEX: M LOC: Z.SI02 A PHONE #: [phone] EXAM DATE: 12/09/2021 STATUS: ADM IN FAX #: [phone] RAD #: D/C DT PAGE 1 Signed Report Patient Name: GARCÍA MARRERO Unit No: [id number] EXAMS: CPT CODE: [id number] CT HEAD/BRAIN W/O CONT 38631 (Continued) Orig Print D/T: S: 12/09/2021 (1807) [facility] NAME: GARCÍA MARRERO [id number] PHYS: [place] [address] : 1955 AGE: 66 SEX: M LOC: Z.SI02 A PHONE #: [phone] EXAM DATE: 12/09/2021 STATUS: ADM IN FAX #: [phone] RAD #: D/C DT PAGE 2 Signed Report- CT HEAD/BRAIN W/O [id number] 16:57:00 [facility] : 1955 Sex: M Patient Name: GARCÍA MARRERO Unit No: [id number] Report Has Been Amended EXAMS: CPT CODE: [id number] CT HEAD/BRAIN W/O CONT 54088 Addendum - 12/09/2021 SIGNED 12/09/2021 ADDENDUM: [id number] CT/CTHDBRWO Please note that the impression should read as follows: IMPRESSION: Sellar/suprasellar mass with likely involvement of the RIGHT cavernous sinus and potentially encasement of the left MCA could relate to a pituitary macroadenoma, meningioma or potentially a craniopharyngioma. If not previously known, recommend follow-up with a nonemergent MRI brain without and with contrast utilizing a pituitary sella protocol. at 4835 Reported and signed by: Grant Clement MD Transcribed: 12/09/2021 (1704) [id number] Report Dictation location: H37. CT HEAD WITHOUT CONTRAST. HISTORY: LEFT SIDED WEAKNESS COMPARISON: No comparison is available. TECHNIQUE: Axial CT images of the head were obtained with coronal and/or sagittal reformatted views. Automated exposure control, iterative reconstruction technique, and/or adjustment of mA and/or kV according to patient's size was utilized for radiation dose reduction. IV CONTRAST: None. FINDINGS: A sellar/suprasellar mass is noted with extension towards the right cavernous sinus measuring at least 2.2 x 2.3 x 2.8 cm. There is probable encasement of the least the right ICA. There is some peripheral calcification. No other intracranial abnormalities such as hemorrhage, hydrocephalus, midline shift, extra-axial fluid collection or acute infarct. amount of periventricular and deep white matter hypodensities are seen, these are most commonly associated with chronic, microvascular ischemic changes. No other intracranial abnormalities such as hemorrhage, mass, mass effect, hydrocephalus, midline shift, extra-axial fluid collection or secondary signs of an acute infarct are noted. [facility] NAME: GARCÍA MARRERO [id number] PHYS: [place] [address] : 1955 AGE: 66 [facility] [id number] LOC: Z.SI02 A PHONE #: [phone] EXAM DATE: 12/08/2021 STATUS: ADM IN FAX #: [phone] RAD #: D/C DT PAGE 1 Signed Report (CONTINUED) Patient Name: GARCÍA MARRERO Unit No: [id number] Report Has Been Amended EXAMS: CPT CODE: [id number] CT HEAD/BRAIN W/O CONT 41896 (Continued) The calvarium and skull base are intact. The paranasal sinus and mastoid air cells are clear. IMPRESSION: Sellar/suprasellar mass with likely involvement of the left cavernous sinus and potentially encasement of the left MCA could relate to a pituitary macroadenoma, meningioma or potentially a craniopharyngioma. If not previously known, recommend follow-up with a nonemergent MRI brain without and with contrast utilizing a pituitary sella protocol. at 1942 Reported and signed by: Rody Preciado MD CC: Golden Awad MD; Madalyn Cueto MD Technologist: Ana Laura Kelley (RT); Catrina Rolon, CTDI: DLP: Trnscrpt: 12/08/2021 (1941) [email or web address] [facility] NAME: GARCÍA MARRERO [id number] PHYS: [place] [address] : 1955 AGE: 66 SEX: M LOC: Z.SI02 A PHONE #: [phone] EXAM DATE: 12/08/2021 STATUS: ADM IN FAX #: [phone] RAD #: D/C DT PAGE 2 Signed Report Patient Name: GARCÍA MARRERO Unit No: [id number] Report Has Been Amended EXAMS: CPT CODE: [id number] CT HEAD/BRAIN W/O CONT 83762 (Continued) Orig Print D/T: S: 12/08/2021 (1945) [facility] [facility] NAME:GARCÍA MARRERO [address] PHYS: [place] [address] : 1955 AGE: 66 SEX: M LOC: Z.SI02 A PHONE #: [phone] EXAM DATE: 12/08/2021 STATUS: ADM IN FAX #: [phone] RAD #: D/C DT PAGE 3 Signed ReportGLUCOSE BEDSIDE [id number] 15:57:00 Test Item Value Reference Range Interpretation Comments GLUCOSE BEDSIDE TESTING (test code 125 MG/DL 60-99 H = GLUBED) - XR CHEST [id number] 14:52:00 [facility] 1955 Sex: M Patient Name: GARCÍA MARRERO Unit No: [id number] EXAMS: CPT CODE: [id number] XR CHEST 1V 50327 Portable AP chest, 1 view Location Code: D4 CLINICAL HISTORY: CHEST TUBE REMOVAL, NURSE WILL CALL COMPARISON: 12/09/2021 at 6:01 AM COMMENT: The heart size is enlarged with prior sternotomy. Right subclavian central line seen without pneumothorax. Improved central congestion and mild bibasilar atelectasis and small effusions. IMPRESSION: Stable postoperative chest with improved mild congestion along with mild bibasilar subsegmental atelectasis and small effusions. No pneumothorax. at 1452 Reported and signed by: Smith Rich MD CC: Golden Awad MD Technologist: Jodie Gaviria RT Transcrpt Date/Tm/Trnsp: 12/09/2021 (145) [email or web address] Orig Print D/T: S: 12/09/2021 (7041) [facility] NAME: GARCÍA MARRERO [address] PHYS: [place] [address] : 1955 AGE: 66 SEX: M LOC: Z.SI02 A PHONE #: [phone] EXAM DATE: 12/09/2021 STATUS: ADM IN FAX #: [phone] RADIOLOGY NO: PAGE 1 Signed ReportGLUCOSE BEDSIDE [id number] 11:54:00 Test Item Value Reference Range Interpretation Comments GLUCOSE BEDSIDE TESTING (test code 215 MG/DL 60-99 H = GLUBED) GLUCOSE BEDSIDE [id number] 11:47:00 Test Item Value Reference Range Interpretation Comments GLUCOSE BEDSIDE TESTING (test code 286 MG/DL 60-99 H = GLUBED) - XR CHEST [id number] 08:23:00 [facility] : 1955 Sex: M Patient Name: GARCÍA MARRERO Unit No: [id number] EXAMS: CPT CODE: [id number] XR CHEST 1V 45087 EXAM: - XRCHEST 1V Location: T18 HISTORY: S/P CABG COMPARISON: 12/08/2021 FINDINGS: Single AP view of the chestis provided. Stable cardiomegaly. Sternotomy wires. Interstitial markings with bibasilar atelectasis.. No effusion. No pneumothorax, No acute osseous abnormality. Stable subclavian catheter. IMPRESSION: 1. Stable chest. at 0823 Reported and signed by: Atul Galvin MD CC: Golden Awad MD Technologist: Smith Lopez, RT(R) Transcrpt Date/Tm/Trnsp: 12/09/2021 (0823) [email or web address] Orig Print D/T: S: 12/09/2021 (1224) [facility] NAME: GARCÍA MARRERO [id number] PHYS: [place] [address] : 1955 AGE: 66 SEX: M LOC: Z.SI02 A PHONE #: [phone] EXAM DATE: 12/09/2021 STATUS: ADM INFAX #: [phone] RADIOLOGY NO: PAGE 1 Signed ReportBASIC METABOLIC [id number] 07:09:00 Test Item Value Reference Range Interpretation Comments SODIUM (test code = 135 MMOL/L 137-145 L NA) POTASSIUM (test code = 4.0 MMOL/L 3.5-5.1 N K) CHLORIDE (test code = 102 MMOL/L 98-107 N CL) CARBON DIOXIDE (test 28 MMOL/L 22-30 N code = CO2) ANION GAP (test code = 9 MMOL/L 14-24 L GAP) GLUCOSE (test code = 168 MG/DL 74-106 H GLU) BLOOD UREA NITROGEN 18 MG/DL 9-20 N (test code = BUN) GLOMERULAR FILTRATION > 60 Report ing units: RATE (test code = GFR) ml/mi n/1.73 m2 (Modified MDRD Formula)Referen ce Range: > or = 6 0 ml/min/1.73 m2 CREATININE (test code 1.20 MG/DL 0.66-1.25 N = CREAT) CALCIUM (test code = 8.2 MG/DL 8.4-10.2 L CA) PROTHROMBIN [id number] 07:01:00 Test Item Value Reference Range Interpretation Comments PROTHROMBIN TIME 11.7 SECONDS 9.4-12.7 N PATIENT (test code = PTP) INTERNATIONAL NORMAL 1.0 0.86-1.14 N The INR is to be RATIO (test code = used only for INR) monitoring oral anticoagulantth erap y. INDICATION I NR VALUE ---- ---- ---- -------1. Prophylaxis, de ep venous thrombos is, including high risk surgery. 2.0 - 3.0 2. Prophylaxis, deep venous thrombosis, hip surgery, treatm ent for deep venous thrombosis or pulmonary prevention of systemic emboli sm in patients wit h valvular heart disease, atrial fibrillation, tissue heart va lve, or acute myocar dial infarction. 2. 0 - 3.0 3. Senior Case Manager al prosthesis hear t valves, recurre nt systemic emboli sm. 3.0 - 4.5 CBC W/AUTO [id number] 06:54:00 Test Item Value Reference Range Interpretation Comments WHITE BLOOD CELL (test code = 12.0 K/MM3 3.8-9.8 H WBC) RED BLOOD CELL (test code = 2.94 M/MM3 3.95-5.67 L RBC) HEMOGLOBIN (test code = HGB) 8.9 G/DL 12.4-16.7 L HEMATOCRIT (test code = HCT) 27.7 % 35.9-49.5 L MEAN CELL VOLUME (test code = 94 fL 81.7-96.1 N MCV) MEAN CELL HGB (test code = MCH) 30.3 pg 27.6-33.2 N MEAN CELL HGB CONCETRATION 32.1 % 32.9-35.5 L (test code = MCHC) RED CELL DISTRIBUTION WIDTH 12.9 % 12.1-15.2 N (test code = RDW) PLATELET COUNT (test code = 98 K/MM3 129-368 L PLT) MEAN PLATELET VOLUME (test code 10.8 fl 7.4-10.4 H = MPV) NEUTROPHIL % (test code = NT%) 68.4 % 43-75 N IMMATURE GRANULOCYTE % (test 0.4 % 0.0-2.0 N code = IG%) LYMPHOCYTE % (test code = LY%) 20.4 % 14-44 N MONOCYTE % (test code = MO%) 10.1 % 4-13 N EOSINOPHIL % (test code = EO%) 0.5 % 0-6 N BASOPHIL % (test code = BA%) 0.2 % 0-2 N NUCLEATED RBC % (test code = 0.0 % 0-1.0 N NRBC%) NEUTROPHIL # (test code = NT#) 8.21 K/mm3 2.0-7.6 H IMMATURE GRANULOCYTE # (test 0.05 x10 3/uL 0-0.03 H code = IG#) LYMPHOCYTE # (test code = LY#) 2.46 K/mm3 1.0-3.8 N MONOCYTE # (test code = MO#) 1.22 K/mm3 0.1-0.8 H EOSINOPHIL # (test code = EO#) 0.06 K/mm3 0.0-0.2 N BASOPHIL # (test code = BA#) 0.03 K/mm3 0.0-0.2 N NUCLEATED RBC # (test code = 0.00 K/mm3 0.0-0.1 N NRBC#) GLUCOSE BEDSIDE [id number] 06:39:00 Test Item Value Reference Range Interpretation Comments GLUCOSE BEDSIDE TESTING (test code 163 MG/DL 60-99 H = GLUBED) - CT ANGIO [id number] 06:17:00 [facility] 1955 Sex: M Patient Name: GARCÍA MARRERO Unit No: [id number] EXAMS: CPT CODE: [id number] CT ANGIO HEAD 6[address]11 H 20 EXAM: - CT ANGIO NECK W WO CONT, - CT ANGIO HEAD HISTORY: LEFT LEG PARALYSIS TECHNIQUE: CTA head: Axial CT images were obtained from the skull base to the vertex after intravenous contrast utilizing CTA protocol. Coronal and sagittal maximum intensity projection images are provided. CTA neck: Axial CT im ages were obtained from the aortic arch to the skull base after intravenous contrast utilizing CTA protocol. Coronal and sagittal maximum intensity projection images are provided. One or more of the following radiation dose reduction techniques was used: automated exposure control, adjustment of mA and /or KV according to patient size, and/or utilization of iterative reconstruction technique. COMPARISON: None available time of interpretation. FINDINGS: For the purposes of this dictation, hemodynamically significant stenosis is characterized as greater than 50%. CTA head: The petrous, cavernous, andclinoid internal carotid arteries do not demonstrate hemodynamically significant stenoses. The anterior and middle cerebral arteries do not demonstrate hemodynamically significant stenoses. The right A1 segment is diminutive with the right KIESHA predominantly supplied by the anterior communicating artery. [place] of both vertebral arteries into the basilar. Basilar artery and posterior cerebral arteries are do not demonstrate hemodynamically significant stenoses. The dural venous sinuses are patent. CTA neck: The origins of the great vessels from the aortic arch do not demonstrate hemodynamically s ignificant stenoses. The bilateral common carotid arteries and bulbs are without hemodynamically significant stenosis. The internal carotid arteries do not demonstrate hemodynamically significant stenosis. The vertebral arteries are codominant. [facility] NAME: GARCÍA MARRERO [id number] PHYS: [place] [address] : 1955 AGE: 66 SEX: M LOC: Z.SI02 A PHONE #: [phone] EXAM DATE: 12/09/2021 STATUS: ADM IN FAX #: [phone] RAD #: D/C DT PAGE 1 Signed Report (CONTINUED) Patient Name: GARCÍA MARRERO Unit No: [id number] EXAMS: CPT CODE: [id number] CT ANGIO HEAD [address] (Continued) Poststernotomy changes and pleural effusions are noted.IMPRESSION: 1. No hemodynamically significant stenoses of the cervical internal carotid or vertebralarteries. 2. No hemodynamically significant stenoses of the anterior, middle, or posterior cerebral arteries. 3. No aneurysm, occlusion, or dissection. at 0617 Reported and signed by: Ronald Morton MD CC: Golden Awad MD; Madalyn Cueto MD Technologist: Yina Monson CTDI: DLP: Trnscrpt: 12/09/2021 (0617) t.[email or web address] [facility] NAME: GARCÍA MARRERO [id number] PHYS: Madalyn Perez MD [place] [id number] : 1955 AGE: 66 SEX: M LOC: Z.SI02 A PHONE #: [phone] EXAM DATE: 12/09/2021 STATUS: ADM IN FAX #:[phone] RAD #: D/C DT PAGE 2 Signed Report Patient Name: GARCÍA MARRERO Unit No: [id number] EXAMS: CPT CODE: [id number] CT ANGIO HEAD [address]60 (Continued) Orig Print D/T: S: 12/09/2021 (0620) [facility]: GARCÍA MARRERO [id number] PHYS: [place] [address] : 1955 AGE: 66 SEX: M LOC: Z.SI02 A PHONE #: [phone] EXAM DATE: 12/09/2021 STATUS: ADM IN FAX #: [phone] RAD #: D/C DT PAGE 3 Signed Report- CT ANGIO NECK W WO [id number] 06:17:00 [facility] : 1955 Sex: M Patient Name: GARCÍA MARRERO Unit No: [id number] EXAMS: CPT CODE: [id number] CT ANGIO NECK W WO CONT 10812 H 20 EXAM: - CT ANGIO NECK W WO CONT, - CT ANGIO HEAD HISTORY: LEFT LEG PARALYSIS TECHNIQUE: CTA head: Axial CT images were obtained from the skull base to the vertex after intravenous contrast utilizing CTA protocol. Coronal and sagittal maximum intensity projection images are provided. CTA neck:Axial CT images were obtained from the aortic arch to the skull base after intravenous contrast utilizing CTA protocol. Coronal and sagittal maximum intensity projection images are provided. One or more of the following radiation dose reduction techniques was used: automated exposure control, adjustment of mA and/or KV according to patient size, and/or utilization of iterative reconstruction technique. COMPARISON: None available time of interpretation. FINDINGS: For the purposes of this dictation, hemodynamically significant stenosis is characterized as greater than 50%. CTA head: The petrous, cave rnous, and clinoid internal carotid arteries do not demonstrate hemodynamically significant stenoses. The anterior and middle cerebral arteries do not demonstrate hemodynamically significant stenoses. The right A1 segment is diminutive with the right KIESHA predominantly supplied by the anterior communica ting artery. [place] of both vertebral arteries into the basilar. Basilar artery and posterior cerebral arteries are do not demonstrate hemodynamically significant stenoses. The dural venous sinusesare patent. CTA neck: The origins of the great vessels from the aortic arch do not demonstrate hemodynamically significant stenoses. The bilateral common carotid arteries and bulbs are without hemodynamically significant stenosis. The internal carotid arteries do not demonstrate hemodynamically significant stenosis. The vertebral arteries are codominant. [facility] NAME: GARCÍA MARRERO[address] PHYS: [place] [address] : 1955 AGE: 66 SEX: M LOC: Z.SI02 A PHONE #: [phone] EXAM DATE: 12/09/2021 STATUS: ADM IN FAX #: [phone] RAD #: D/C DT PAGE 1 Signed Report (CONTINUED) Patient Name: GARCÍA MARRERO Unit No: [id number] EXAMS: CPT CODE: [id number] CT ANGIO NECK W WO CONT [address]04 (Continued) Poststernotomy changes and pleural e ffusions are noted. IMPRESSION: 1. No hemodynamically significant stenoses of the cervical internal carotid or vertebral arteries. 2. No hemodynamically significant stenoses of the anterior, middle, orposterior cerebral arteries. 3. No aneurysm, occlusion, or dissection. at 0617 Reported and signed by: Ronald Morton MD CC: Golden Awad MD; Madalyn Cueto MD Technologist: Yina Monson CTDI: DLP: Trnscrpt: 12/09/2021 (0617) t.[email or web address] [facility] NAME: GARCÍA MARRERO [id number] PHYS: [place] [address] : 1955 AGE: 66 SEX: M LOC: Z.SI02 A PHONE #: [phone] EXAM DATE: 12/09/2021 STATUS: ADM IN FAX #: [phone] RAD #: D/C DT PAGE 2 Signed Report Patient Name: GARCÍA MARRERO Unit No: [id number] EXAMS: CPT CODE: [id number] CT ANGIO NECK W WO CONT 83839 (Continued) Orig Print D/T: S: 12/09/2021 (0620) [facility] NAME: GARCÍA MARRERO PHYS: [place] [address] : 1955 AGE: 66 SEX: M LOC: Z.SI02 A PHONE #: [phone] EXAM DATE: 12/09/2021 STATUS: ADM IN FAX #: [phone] RAD #: D/C DT PAGE 3 Signed Report- CT HEAD/BRAIN W/O CONT 2021-12-09 05:47:00 [facility] : 1955 Sex: M Patient Name: GARCÍA MARRERO Unit No: [id number] EXAMS: CPT CODE: [id number] CT HEAD/BRAIN W/O CONT 39718 Location of dictation: B2 CT Brain without contrast HISTORY: LEFT SIDE PARALYSIS COMMENT: Axial multidetector slices through the brain were obtained without use of intravenous contrast material. Sagittal and coronal reformations were obtained and reviewed. An up-to-date CT recommended radiation dose reduction technique was utilized. 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 The cortical sulci, cisterns and ventricles otherwise appear normal for age with no intra or extra cerebral hemorrhage or mass lesion. No midline shift or transtentorial herniation is present. No abnormal intracranial calcifications are seen. The calvarium is intact. No airfluid levels in the sinuses. IMPRESSION: Stable suprasellar mass with peripheral calcifications otherwise no acute findings and no changes from one day prior. at 1947 Reported and signed by: Brigette Lugo M.D. CC: Golden Awad MD; Madalyn Cueto MD Technologist: Yina Monsno CTDI: DLP: Trnscrpt: 12/09/2021 (0547) JackiePXC [facility] NAME:GARCÍA MARRERO [id number] PHYS: [place] [address] : 1955 AGE: 66 SEX: M LOC: Z.SI02 A PHONE #: [phone] EXAM DATE: 12/09/2021 STATUS:ADM IN FAX #: [phone] RAD #: D/C DT PAGE 1 Signed Report Patient Name: GARCÍA MARRERO Unit No: [id number] EXAMS: CPT CODE: [id number] CT HEAD/BRAIN W/O CONT 10088 (Continued) Orig Print D/T: S: 12/09/2021 (0550) [facility] NAME: GARCÍA MARRERO [id number] PHYS: [place] [address] : 1955 AGE: 66 SEX: M LOC: Z.SI02 A PHONE #: [phone] EXAM DATE: 12/09/2021 STATUS: ADM IN FAX #: [phone] RAD #: D/C DT PAGE 2 Signed ReportGLUCOSE BEDSIDE [id number] 20:50:00 Test Item Value Reference Range Interpretation Comments GLUCOSE BEDSIDE TESTING (test code 161 MG/DL 60-99 H = GLUBED) GLUCOSE BEDSIDE [id number] 17:32:00 Test Item Value Reference Range Interpretation Comments GLUCOSE BEDSIDE TESTING (test code 168 MG/DL 60-99 H = GLUBED) [id number] 15:42:00 Test Item Value Reference Range Interpretation Comments SURGICAL (test code = SR) RUN DATE: 12/08/21 [place] [facility] PAGE 1 RUN TIME: 1542 Specimen Inquiry RUN USER: INTERFACE PATIENT: GARCÍA MARRERO LOC: PAULA U #: [id number] AGE/SX: 66/M ROOM: [facility]12[facility]21[facility]: Wil Aragon MD : 55 BED: A DIS: STATUS: ADM IN TLOC: SPEC #: [id number]:SILVERMAN:[id number] RECD: 12/07/21 STATUS: JONO REQ #: [id number] RAHUL: 12/06/[address] [facility] [address]: Wil Aragon MD ENTERED: 12/07/21 SP TYPE: SURGICAL OTHR DR: Golden Awad MD, Omer MD Pepper, Gregory S MDORDERED: 46912, 76791, ANATOMIC SPEC, SPECIMEN TRACK COPIES TO: Golden Awad MD [address] [place] [address] [place] [address] [facility] [place] [address] [place] [address] [facility] [address] [place] [address] [place] [address] [facility] [address] [place] [address] PROCEDURES: 70577 (12/07/21-928) 28653 (12/08/21-1541) SPECIMEN TRACK (12/07/21) TISSUES: A. AORTIC VALVE - AORTIC VALVE LEAFLETS FINAL DIAGNOSIS AORTA, VALVE REPLACEMENT:- Valve leaflets with degenerative changes and calcifications. GROSS DESCRIPTION Aortic valve leaflets. It consists of three triangular shaped segments of valve measuring2.2 x 1.2 x 0.4, 2.5 x 1.2 x 0.4 and 2.2 x 1 x 0.2 cm. They have a heavily calcifiedappearing wall. Sections are submitted for decalcification as A1. Technical tissue processing and slide preparation performed at [employer] CONTINUED ON NEXT PAGE RUN DATE: 12/08/21 [facility] - [facility] PAGE 2 RUN TIME: 1541 Specimen Inquiry RUN USER: INTERFACE SPEC #: [id number]:SILVERMAN:[id number] PATIENT: GARCÍA MARRERO #[id number] (Continued) GROSS DESCRIPTION (Continued) [address], [place] [address] MICROSCOPIC DESCRIPTION Microscopic examination is performed and the findings are incorporated into the finaldiagnosis. Please see diagnosis for the findings. Signed SIGNATURE ON FILE Jaspal Mckay 12/08/21 1542 END OF REPORT GLUCOSE BEDSIDE [id number] 10:53:00 Test Item Value Reference Range Interpretation Comments GLUCOSE BEDSIDE TESTING (test code 189 MG/DL 60-99 H = GLUBED) - XR CHEST [id number] 08:03:00 [facility] : 1955 Sex: M Patient Name: GARCÍA MARRERO Unit No: [id number] EXAMS: CPT CODE: [id number] XR CHEST 1V 48088 EXAM: - XR CHEST 1V CLINICAL HISTORY: S/P CABG TECHNIQUE: Single frontal view. COMPARISON: Chest radiograph 12/07/2021, 12/06/2021 LOCATION: U19 FINDINGS: Right subclavian central line again noted. Interval removal of the pulmonary Maynard-Jacob catheter. Midline sternotomy wires and mediastinal surgical clips are present. The trachea appears normal. The cardiomediastinal silhouette is mildly enlarged. No confluent airspace opacities. Trace left pleural effusion. Limited evaluation of soft tissues and osseous structures is grossly unremarkable. IMPRESSION: Mild cardiomegaly. Trace left pleural effusion. at 0803 Reported and signed by: Cedric Jackson MD CC: Golden Awad MD Technologist: Wilma Park (RTR) Transcrpt Date/Tm/Trnsp: 12/08/2021 (802) [email or web address] Orig Print D/T: S: 12/08/2021 (805) [facility] NAME: GARCÍA MARRERO [address] PHYS: [place] [address] : 1955 AGE: 66 SEX: M LOC:Z.SI02 A PHONE #: [phone] EXAM DATE: 12/08/2021 STATUS: ADM IN FAX #: [phone] RADIOLOGY NO: PAGE 1 Signed ReportGLUCOSE BEDSIDE [id number] 06:33:00 Test Item Value Reference Range Interpretation Comments GLUCOSE BEDSIDE TESTING (test code 149 MG/DL 60-99 H = GLUBED) PROTHROMBIN [id number] 05:59:00 Test Item Value Reference Range Interpretation Comments PROTHROMBIN TIME 12.0 SECONDS 9.4-12.7 N PATIENT (test code = PTP) INTERNATIONAL NORMAL 1.1 0.86-1.14 N The INR is to be RATIO (test code = used only for INR) monitoring oral anticoagulantth erap y. INDICATION INR VALUE ---- ---- ---- -------1. Prophylaxis, de ep venous thrombos is, including high risk surgery. 2.0 - 3.0 2. Prophylaxis, deep venous thrombosis, hip surgery, treatm ent for deep venous thrombosis or pulmonary prevention of systemic emboli sm in patients wit h valvular heart disease, atrial fibrillation, tissue heart va lve, or acute myocar dial infarction. 2.0 - 3.0 3. Senior Case Manager al prosthesis hear t valves, recurre nt systemic emboli sm. 3.0 - 4.5 GLUCOSE BEDSIDE [id number] 20:11:00 Test Item Value Reference Range Interpretation Comments GLUCOSE BEDSIDE TESTING (test code 167 MG/DL 60-99 H = GLUBED) GLUCOSE BEDSIDE [id number] 17:32:00 Test Item Value Reference Range Interpretation Comments GLUCOSE BEDSIDE TESTING (test code 103 MG/DL 60-99 H = GLUBED) GLUCOSE BEDSIDE [id number] 14:08:00 Test Item Value Reference Range Interpretation Comments GLUCOSE BEDSIDE TESTING (test code 155 MG/DL 60-99 H = GLUBED) GLUCOSE BEDSIDE [id number] 11:49:00 Test Item Value Reference Range Interpretation Comments GLUCOSE BEDSIDE TESTING (test code 157 MG/DL 60-99 H = GLUBED) GLUCOSE BEDSIDE [id number] 09:28:00 Test Item Value Reference Range Interpretation Comments GLUCOSE BEDSIDE TESTING (test code 197 MG/DL 60-99 H = GLUBED) GLUCOSE BEDSIDE [id number] 07:25:00 Test Item Value Reference Range Interpretation Comments GLUCOSE BEDSIDE TESTING (test code 162 MG/DL 60-99 H = GLUBED) - XR CHEST [id number] 07:18:00 [facility] 1955 Sex: M Patient Name: GARCÍA MARRERO Unit No: [id number] EXAMS: CPT CODE: [id number] XR CHEST 1V 16928 EXAM: - XR CHEST 1V Location code:C3 HISTORY: S/P CABG COMPARISON: 12/06/2021 IMPRESSION: Single AP view of thechest is provided. Endotracheal tube has been removed. Other support lines and tubes are similar. Cardiomegaly with vascular congestion persists. Trace effusions are unchanged. There is no pneumothorax. No additional interval change. at 0718 Reported and signed by: Tobi Richard MD CC: Golden Awad MD Technologist: Margarita Maya RT(R) Transcrpt Date/Tm/Trnsp: 12/07/2021 (717) [id number] Orig Print D/T: S: 12/07/2021(721) [facility] NAME: GARCÍA MARRERO [address] PHYS: [place] [address] : 1955 AGE: 66 SEX: M LOC: Z.SI02 A PHONE #: [phone] EXAMDATE: 12/07/2021 STATUS: ADM IN FAX #: [phone] RADIOLOGY NO: PAGE 1 Signed ReportGLUCOSE BEDSIDE [id number] 06:14:00 Test Item Value Reference Range Interpretation Comments GLUCOSE BEDSIDE TESTING (test code 194 MG/DL 60-99 H = GLUBED) BASIC METABOLIC [id number] 04:35:00 Test Item Value Reference Range Interpretation Comments SODIUM (test code = 136 MMOL/L 137-145 L NA) POTASSIUM (test code = 4.0 MMOL/L 3.5-5.1 N K) CHLORIDE (test code = 105 MMOL/L 98-107 N CL) CARBON DIOXIDE (test 28 MMOL/L 22-30 N code = CO2) ANION GAP (test code = 7 MMOL/L 14-24 L GAP) GLUCOSE (test code = 184 MG/DL 74-106 H GLU) BLOOD UREA NITROGEN 22 MG/DL 9-20 H (test code = BUN) GLOMERULAR FILTRATION > 60 Report ing units: RATE (test code = GFR) ml/mi n/1.73 m2 (Modified MDRD Formula)Referen ce Range: > or = 6 0 ml/min/1.73 m2 CREATININE (test code 1.10 MG/DL 0.66-1.25 = CREAT) CALCIUM (test code = 8.3 MG/DL 8.4-10.2 L CA) [id number] 04:35:00 Test Item Value Reference Range Interpretation Comments MAGNESIUM (test code = MAG) 2.6 MG/DL 1.6-2.3 H CBC W/AUTO [id number] 04:19:00 Test Item Value Reference Range Interpretation Comments WHITE BLOOD CELL (test code = 13.1 K/MM3 3.8-9.8 H WBC) RED BLOOD CELL (test code = 3.91 M/MM3 3.95-5.67 L RBC) HEMOGLOBIN (test code = HGB) 11.8 G/DL 12.4-16.7 L HEMATOCRIT (test code = HCT) 35.5 % 35.9-49.5 L MEAN CELL VOLUME (test code = 91 fL 81.7-96.1 N MCV) MEAN CELL HGB (test code = MCH) 30.2 pg 27.6-33.2 N MEAN CELL HGB CONCETRATION 33.2 % 32.9-35.5 N (test code = MCHC) RED CELL DISTRIBUTION WIDTH 13.0 % 12.1-15.2 N (test code = RDW) PLATELET COUNT (test code = 129 K/MM3 129-368 N PLT) MEAN PLATELET VOLUME (test code 10.2 fl 7.4-10.4 N = MPV) NEUTROPHIL % (test code = NT%) 82.9 % 43-75 H IMMATURE GRANULOCYTE % (test 0.4 % 0.0-2.0 N code = IG%) LYMPHOCYTE % (test code = LY%) 9.4 % 14-44 L MONOCYTE % (test code = MO%) 7.1 % 4-13 N EOSINOPHIL % (test code = EO%) 0.0 % 0-6 N BASOPHIL % (test code = BA%) 0.2 % 0-2 N NUCLEATED RBC % (test code = 0.0 % 0-1.0 N NRBC%) NEUTROPHIL # (test code = NT#) 10.89 K/mm3 2.0-7.6 H IMMATURE GRANULOCYTE # (test 0.05 x10 3/uL 0-0.03 H code = IG#) LYMPHOCYTE # (test code = LY#) 1.23 K/mm3 1.0-3.8 N MONOCYTE # (test code = MO#) 0.93 K/mm3 0.1-0.8 H EOSINOPHIL # (test code = EO#) 0.00 K/mm3 0.0-0.2 N BASOPHIL # (test code = BA#) 0.02 K/mm3 0.0-0.2 N NUCLEATED RBC # (test code = 0.00 K/mm3 0.0-0.1 N NRBC#) GLUCOSE BEDSIDE [id number] 04:08:00 Test Item Value Reference Range Interpretation Comments GLUCOSE BEDSIDE TESTING (test code 178 MG/DL 60-99 H = GLUBED) GLUCOSE BEDSIDE [id number] 04:05:00 Test Item Value Reference Range Interpretation Comments GLUCOSE BEDSIDE TESTING (test code 156 MG/DL 60-99 H = GLUBED) GLUCOSE BEDSIDE [id number] 00:54:00 Test Item Value Reference Range Interpretation Comments GLUCOSE BEDSIDE TESTING (test code 174 MG/DL 60-99 H = GLUBED) GLUCOSE BEDSIDE [id number] 00:52:00 Test Item Value Reference Range Interpretation Comments GLUCOSE BEDSIDE TESTING (test code 152 MG/DL 60-99 H = GLUBED) GLUCOSE BEDSIDE [id number] 23:10:00 Test Item Value Reference Range Interpretation Comments GLUCOSE BEDSIDE TESTING (test code 151 MG/DL 60-99 H = GLUBED) PROTHROMBIN [id number] 21:24:00 Test Item Value Reference Range Interpretation Comments PROTHROMBIN TIME 11.8 SECONDS 9.4-12.7 PATIENT (test code = PTP) INTERNATIONAL NORMAL 1.0 0.86-1.14 N The INR is to be RATIO (test code = used only for INR) monitoring oral anticoagulantth erap y. INDICATION I NR VALUE ---- ---- ---- -------1. Prophylaxis, de ep venous thrombos is, including high risk surgery. 2.0 - 3.0 2. Prophylaxis, deep venous thrombosis, hip surgery, treatm ent for deep venous thrombosis or pulmonary prevention of systemic emboli sm in patients wit h valvular heart disease, atrial fibrillation, tissue heart va lve, or acute myocar dial infarction. 2. 0 - 3.0 3. Senior Case Manager al prosthesis hear t valves, recurre nt systemic emboli sm. 3.0 - 4.5 PTT [id number] 21:24:00 Test Item Value Reference Range Interpretation Comments PTT ACTIVATED (test code = APTT) 33.4 SECONDS 26.2-35.4 N CBC W/AUTO [id number] 21:21:00 Test Item Value Reference Range Interpretation Comments WHITE BLOOD CELL (test code = 11.3 K/MM3 3.8-9.8 H WBC) RED BLOOD CELL (test code = 4.07 M/MM3 3.95-5.67 RBC) HEMOGLOBIN (test code = HGB) 12.3 G/DL 12.4-16.7 L HEMATOCRIT (test code = HCT) 36.5 % 35.9-49.5 MEAN CELL VOLUME (test code = 90 fL 81.7-96.1 N MCV) MEAN CELL HGB (test code = MCH) 30.2 pg 27.6-33.2 N MEAN CELL HGB CONCETRATION 33.7 % 32.9-35.5 N (test code = MCHC) RED CELL DISTRIBUTION WIDTH 12.8 % 12.1-15.2 N (test code = RDW) PLATELET COUNT (test code = 125 K/MM3 129-368 L PLT) MEAN PLATELET VOLUME (test code 10.2 fl 7.4-10.4 N = MPV) NEUTROPHIL % (test code = NT%) 83.1 % 43-75 H IMMATURE GRANULOCYTE % (test 0.4 % 0.0-2.0 N code = IG%) LYMPHOCYTE % (test code = LY%) 9.0 % 14-44 L MONOCYTE % (test code = MO%) 7.1 % 4-13 N EOSINOPHIL % (test code = EO%) 0.1 % 0-6 N BASOPHIL % (test code = BA%) 0.3 % 0-2 N NUCLEATED RBC % (test code = 0.0 % 0-1.0 N NRBC%) NEUTROPHIL # (test code = NT#) 9.43 K/mm3 2.0-7.6 H IMMATURE GRANULOCYTE # (test 0.04 x10 3/uL 0-0.03 H code = IG#) LYMPHOCYTE # (test code = LY#) 1.02 K/mm3 1.0-3.8 N MONOCYTE # (test code = MO#) 0.81 K/mm3 0.1-0.8 H EOSINOPHIL # (test code = EO#) 0.01 K/mm3 0.0-0.2 N BASOPHIL # (test code = BA#) 0.03 K/mm3 0.0-0.2 N NUCLEATED RBC # (test code = 0.00 K/mm3 0.0-0.1 N NRBC#) GLUCOSE BEDSIDE [id number] 21:17:00 Test Item Value Reference Range Interpretation Comments GLUCOSE BEDSIDE TESTING (test code 141 MG/DL 60-99 H = GLUBED) BASIC METABOLIC [id number] 21:08:00 Test Item Value Reference Range Interpretation Comments SODIUM (test code = 140 MMOL/L 137-145 N NA) POTASSIUM (test code = 4.3 MMOL/L 3.5-5.1 N K) CHLORIDE (test code = 109 MMOL/L 98-107 H CL) CARBON DIOXIDE (test 26 MMOL/L 22-30 code = CO2) ANION GAP (test code = 9 MMOL/L 14-24 L GAP) GLUCOSE (test code = 142 MG/DL 74-106 H GLU) BLOOD UREA NITROGEN 28 MG/DL 9-20 H (test code = BUN) GLOMERULAR FILTRATION 55 Report ing units: RATE (test code = GFR) ml/mi n/1.73 m2 (Modified MDRD Formula)Referen ce Range: > or = 6 0 ml/min/1.73 m2 CREATININE (test code 1.30 MG/DL 0.66-1.25 H = CREAT) CALCIUM (test code = 8.6 MG/DL 8.4-10.2 N CA) [id number] 21:08:00 Test Item Value Reference Range Interpretation Comments MAGNESIUM (test code = MAG) 3.5 MG/DL 1.6-2.3 H GLUCOSE BEDSIDE [id number] 20:23:00 Test Item Value Reference Range Interpretation Comments GLUCOSE BEDSIDE TESTING (test code 132 MG/DL 60-99 H = GLUBED) GLUCOSE BEDSIDE [id number] 19:10:00 Test Item Value Reference Range Interpretation Comments GLUCOSE BEDSIDE TESTING (test code 124 MG/DL 60-99 H = GLUBED) GLUCOSE BEDSIDE [id number] 18:17:00 Test Item Value Reference Range Interpretation Comments GLUCOSE BEDSIDE TESTING (test code 126 MG/DL 60-99 H = GLUBED) - XR CHEST [id number] 17:41:00 [facility] 1955 Sex: M Patient Name: GARCÍA MARRERO Unit No: [id number] EXAMS: CPT CODE: [id number] XR CHEST 1V [id number] CHEST ONE VIEW Dictation location N 13 Clinical history CABG. Atherosclerosis. TECHNIQUE: Single frontal view of the chest was obtained and is compared to a prior study of December 04, 2021 FINDINGS: Midline sternotomy has been performed. ET tube, gastric tube, Maynard-Jacob catheter, project in satisfactory position. There is widening of the mediastinum consistent with recent surgery. There is mild central vascular congestion and mild central interstitial infiltrates. No pleural effusion or pneumothorax. IMPRESSION: 1. Visualized support tubes and catheters project in satisfactory position. 2. Significant widening of the mediastinum is consistent with recent surgery. Clinical follow-up with serial chest x-rayrecommended. 3. Mild bilateral central interstitial infiltrates. at 1741 Reported and signed by: Kizzy Simon M.D. CC: Rachel Awad MD Technologist: Bryan Shannon RT Transcrpt Date/Tm/Trnsp: 12/06/2021 (9041) [email or web address] Orig Print D/T: S: 12/06/2021 (7113) [facility] NAME: GARCÍA MRARERO [id number] [address] PHYS: [place] [address] : 1955 AGE: 66 SEX: M LOC: [id number] A PHONE # : [phone] EXAM DATE: 12/06/2021 STATUS: ADM IN FAX #: [phone] RADIOLOGY NO: PAGE 1 Signed ReportARTERIAL BLOOD [id number] 17:11:00 Test Item Value Reference Range Interpretation Comments ARTERIAL BLOOD GAS PH 7.38 mmHg 7.35-7.45 N (test code = PHA) ARTERIAL BLOOD GAS 35.1 mmHg 35.0-45.0 N PCO2 (test code = PCO2A) ARTERIAL BLOOD GAS 106.4 mmol/L 80.0-100.0 H PO2 (test code = PO2A) BICARBONATE TOTAL 20.3 mmol/L 20.0-26.0 N HCO3 (test code = HCO3) BASE EXCESS (test -4.0 mmol/L -3.0-3.0 L code = JEAN) ABG O2 SATURATION 97.8 % 95.0-100.0 N (test code = SATA) ABG DELIVERY (test VENT code = FRANK) ABG VENT MODE (test A/C code = MODEA) ABG VENT RESP RATE 12.0 /MIN (test code = RRA) ABG TIDAL VOLUME 500.0 ml (test code = TVA) ABG PEEP (test code = 5.0 cmH2O PEEPA) ABG TEMPERATURE (test 37.0 C See_Comment [Auto mated message] code = TEMPA) The system [employer] generated this result transmit asaf reference range : 37. The reference r fred was not used to interpret this result as normal/abnormal . ABG SITE (test code = AL SITEA) ALLENS TEST (test NA CHECK code = ALLENS) FIO2 (test code = 100 % COHBGFFIO2) GLUCOSE BEDSIDE [id number] 17:09:00 Test Item Value Reference Range Interpretation Comments GLUCOSE BEDSIDE TESTING (test code 108 MG/DL 60-99 H = GLUBED) BASIC METABOLIC [id number] 16:39:00 Test Item Value Reference Range Interpretation Comments SODIUM (test code = 138 MMOL/L 137-145 N NA) POTASSIUM (test code = 4.4 MMOL/L 3.5-5.1 N K) CHLORIDE (test code = 111 MMOL/L 98-107 H CL) CARBON DIOXIDE (test 23 MMOL/L 22-30 N code = CO2) ANION GAP (test code = 8 MMOL/L 14-24 L GAP) GLUCOSE (test code = 130 MG/DL 74-106 H GLU) BLOOD UREA NITROGEN 28 MG/DL 9-20 H (test code = BUN) GLOMERULAR FILTRATION 55 Report ing units: RATE (test code = GFR) ml/mi n/1.73 m2 (Modified MDRD Formula)Referen ce Range: > or = 6 0 ml/min/1.73 m2 CREATININE (test code 1.30 MG/DL 0.66-1.25 H = CREAT) CALCIUM (test code = 8.8 MG/DL 8.4-10.2 N CA) PROTHROMBIN [id number] 16:37:00 Test Item Value Reference Range Interpretation Comments PROTHROMBIN TIME 14.1 SECONDS 9.4-12.7 H PATIENT (test code = PTP) INTERNATIONAL NORMAL 1.2 0.86-1.14 H The INR is to be RATIO (test code = used only for INR) monitoring oral anticoagulantth erap y. INDICATION I NR VALUE ---- ---- ---- -------1. Prophylaxis, de ep venous thrombos is, including high risk surgery. 2.0 - 3.0 2. Prophylaxis, deep venous thrombosis, hip surgery, treatm ent for deep venous thrombosis or pulmonary prevention of systemic emboli sm in patients wit h valvular heart disease, atrial fibrillation, tissue heart va lve, or acute myocar dial infarction. 2. 0 - 3.0 3. Senior Case Manager al prosthesis hear t valves, recurre nt systemic emboli sm. 3.0 - 4.5 PTT [id number] 16:37:00 Test Item Value Reference Range Interpretation Comments PTT ACTIVATED (test code = APTT) 34.9 SECONDS 26.2-35.4 CBC W/AUTO [id number] 16:33:00 Test Item Value Reference Range Interpretation Comments WHITE BLOOD CELL (test code = 14.1 K/MM3 3.8-9.8 H WBC) RED BLOOD CELL (test code = 3.45 M/MM3 3.95-5.67 L RBC) HEMOGLOBIN (test code = HGB) 10.4 G/DL 12.4-16.7 L HEMATOCRIT (test code = HCT) 31.5 % 35.9-49.5 L MEAN CELL VOLUME (test code = 91 fL 81.7-96.1 N MCV) MEAN CELL HGB (test code = MCH) 30.1 pg 27.6-33.2 N MEAN CELL HGB CONCETRATION 33.0 % 32.9-35.5 N (test code = MCHC) RED CELL DISTRIBUTION WIDTH 12.8 % 12.1-15.2 N (test code = RDW) PLATELET COUNT (test code = 138 K/MM3 129-368 PLT) MEAN PLATELET VOLUME (test code 10.3 fl 7.4-10.4 N = MPV) NEUTROPHIL % (test code = NT%) 70.5 % 43-75 N IMMATURE GRANULOCYTE % (test 0.6 % 0.0-2.0 N code = IG%) LYMPHOCYTE % (test code = LY%) 23.7 % 14-44 N MONOCYTE % (test code = MO%) 4.3 % 4-13 N EOSINOPHIL % (test code = EO%) 0.6 % 0-6 N BASOPHIL % (test code = BA%) 0.3 % 0-2 N NUCLEATED RBC % (test code = 0.0 % 0-1.0 N NRBC%) NEUTROPHIL # (test code = NT#) 9.91 K/mm3 2.0-7.6 H IMMATURE GRANULOCYTE # (test 0.08 x10 3/uL 0-0.03 H code = IG#) LYMPHOCYTE # (test code = LY#) 3.33 K/mm3 1.0-3.8 N MONOCYTE # (test code = MO#) 0.61 K/mm3 0.1-0.8 N EOSINOPHIL # (test code = EO#) 0.08 K/mm3 0.0-0.2 N BASOPHIL # (test code = BA#) 0.04 K/mm3 0.0-0.2 N NUCLEATED RBC # (test code = 0.00 K/mm3 0.0-0.1 N NRBC#) POC ARTERIAL BLOOD [id number] 16:22:00 Test Item Value Reference Range Interpretation Comments POC ARTERIAL BLOOD GAS PH 7.335 7.35-7.45 L (test code = POCPHA) POC ARTERIAL BLOOD GAS PCO2 43.7 mmHg 35.0-45.0 N (test code = CXKSYO0X) POC ARTERIAL BLOOD GAS PO2 163.8 75.0-100.0 H (test code = ZLPTX3J) POC HCO3 ARTERIAL (test 23.3 MMOL/L 20.0-26.0 N code = VLQWVA5G) POC BASE EXCESS (test code -2.5 MMOL/L -3.0-3.0 N = POCBEA) POC O2 SATURATION (test 99.4 % 92.0-98.5 H code = POCO2S) SODIUM (test code = NA/ABG) 143 MMOL/L 135-141 H POTASSIUM (test code = 4.4 MMOL/L 3.7-4.7 N K/ABG) CHLORIDE (test code = 109 MEQ/L CL/ABG) POC IONIZED CALCIUM (test 1.27 MMOL/L 1.13-1.32 N code = POCCA) POC GLUCOSE (test code = 124 MG/DL 60-99 H POCGLU) POC SAMPLE SOURCE (test Arterial Descript Specimen code = POCSAMPLE) LACTIC ACID POC (test code 1.13 mmol/L 0.7-2.0 N = LACTP) POC ARTERIAL BLOOD [id number] 15:23:00 Test Item Value Reference Range Interpretation Comments POC ARTERIAL BLOOD GAS PH 7.368 7.35-7.45 N (test code = POCPHA) POC ARTERIAL BLOOD GAS PCO2 44.1 mmHg 35.0-45.0 N (test code = MHBANF3M) POC ARTERIAL BLOOD GAS PO2 421.8 75.0-100.0 HH (test code = JWVZH7I) POC HCO3 ARTERIAL (test 25.4 MMOL/L 20.0-26.0 N code = RIXGLY2I) POC BASE EXCESS (test code -0.1 MMOL/L -3.0-3.0 N = POCBEA) POC O2 SATURATION (test 100.0 % 92.0-98.5 H code = POCO2S) SODIUM (test code = NA/ABG) 141 MMOL/L 135-141 N POTASSIUM (test code = 5.1 MMOL/L 3.7-4.7 H K/ABG) CHLORIDE (test code = 108 MEQ/L CL/ABG) POC IONIZED CALCIUM (test 1.16 MMOL/L 1.13-1.32 N code = POCCA) POC GLUCOSE (test code = 124 MG/DL 60-99 H POCGLU) POC SAMPLE SOURCE (test Arterial Descript Specimen code = POCSAMPLE) LACTIC ACID POC (test code 0.73 mmol/L 0.7-2.0 N = LACTP) POC ARTERIAL BLOOD [id number] 14:56:00 Test Item Value Reference Range Interpretation Comments POC ARTERIAL BLOOD GAS PH 7.413 7.35-7.45 N (test code = POCPHA) POC ARTERIAL BLOOD GAS PCO2 43.4 mmHg 35.0-45.0 N (test code = KTAPID9A) POC ARTERIAL BLOOD GAS PO2 507.1 75.0-100.0 HH (test code = HJPTL4P) POC HCO3 ARTERIAL (test 27.7 MMOL/L 20.0-26.0 H code = LBMRCX2T) POC BASE EXCESS (test code 2.8 MMOL/L -3.0-3.0 N = POCBEA) POC O2 SATURATION (test 100.0 % 92.0-98.5 H code = POCO2S) SODIUM (test code = NA/ABG) 142 MMOL/L 135-141 H POTASSIUM (test code = 4.9 MMOL/L 3.7-4.7 H K/ABG) CHLORIDE (test code = 108 MEQ/L CL/ABG) POC IONIZED CALCIUM (test 1.17 MMOL/L 1.13-1.32 N code = POCCA) POC GLUCOSE (test code = 115 MG/DL 60-99 H POCGLU) POC SAMPLE SOURCE (test Arterial Descript Specimen code = POCSAMPLE) LACTIC ACID POC (test code 1.35 mmol/L 0.7-2.0 N = LACTP) POC ARTERIAL BLOOD [id number] 14:24:00 Test Item Value Reference Range Interpretation Comments POC ARTERIAL BLOOD GAS PH 7.407 7.35-7.45 N (test code = POCPHA) POC ARTERIAL BLOOD GAS PCO2 40.3 mmHg 35.0-45.0 N (test code = ADNFAC6V) POC ARTERIAL BLOOD GAS PO2 397.4 75.0-100.0 HH (test code = PDGPN9H) POC HCO3 ARTERIAL (test 25.3 MMOL/L 20.0-26.0 N code = XCSBSD7D) POC BASE EXCESS (test code 0.6 MMOL/L -3.0-3.0 N = POCBEA) POC O2 SATURATION (test 100.0 % 92.0-98.5 H code = POCO2S) SODIUM (test code = NA/ABG) 141 MMOL/L 135-141 N POTASSIUM (test code = 4.9 MMOL/L 3.7-4.7 H K/ABG) CHLORIDE (test code = 109 MEQ/L CL/ABG) POC IONIZED CALCIUM (test 1.19 MMOL/L 1.13-1.32 N code = POCCA) POC GLUCOSE (test code = 120 MG/DL 60-99 H POCGLU) POC SAMPLE SOURCE (test Arterial Descript Specimen code = POCSAMPLE) LACTIC ACID POC (test code 0.75 mmol/L 0.7-2.0 N = LACTP) POC ARTERIAL BLOOD [id number] 13:55:00 Test Item Value Reference Range Interpretation Comments POC ARTERIAL BLOOD GAS PH 7.397 7.35-7.45 N (test code = POCPHA) POC ARTERIAL BLOOD GAS PCO2 40.5 mmHg 35.0-45.0 N (test code = NXOMTU4S) POC ARTERIAL BLOOD GAS PO2 439.2 75.0-100.0 HH (test code = KBCIP9S) POC HCO3 ARTERIAL (test 24.9 MMOL/L 20.0-26.0 N code = OCNVOC7T) POC BASE EXCESS (test code 0.1 MMOL/L -3.0-3.0 N = POCBEA) POC O2 SATURATION (test 100.0 % 92.0-98.5 H code = POCO2S) SODIUM (test code = NA/ABG) 141 MMOL/L 135-141 N POTASSIUM (test code = 4.3 MMOL/L 3.7-4.7 N K/ABG) CHLORIDE (test code = 108 MEQ/L CL/ABG) POC IONIZED CALCIUM (test 1.17 MMOL/L 1.13-1.32 N code = POCCA) POC GLUCOSE (test code = 126 MG/DL 60-99 H POCGLU) POC SAMPLE SOURCE (test Arterial Descript Specimen code = POCSAMPLE) LACTIC ACID POC (test code 0.49 mmol/L 0.7-2.0 L = LACTP) POC ARTERIAL BLOOD [id number] 12:57:00 Test Item Value Reference Range Interpretation Comments POC ARTERIAL BLOOD GAS PH 7.316 7.35-7.45 L (test code = POCPHA) POC ARTERIAL BLOOD GAS PCO2 51.4 mmHg 35.0-45.0 HH (test code = UMIZCN5J) POC ARTERIAL BLOOD GAS PO2 482.0 75.0-100.0 HH (test code = VAPVS4U) POC HCO3 ARTERIAL (test 26.2 MMOL/L 20.0-26.0 H code = SORYNV0H) POC BASE EXCESS (test code -0.3 MMOL/L -3.0-3.0 N = POCBEA) POC O2 SATURATION (test 100.0 % 92.0-98.5 H code = POCO2S) SODIUM (test code = NA/ABG) 140 MMOL/L 135-141 N POTASSIUM (test code = 4.0 MMOL/L 3.7-4.7 N K/ABG) CHLORIDE (test code = 107 MEQ/L CL/ABG) POC IONIZED CALCIUM (test 1.21 MMOL/L 1.13-1.32 N code = POCCA) POC GLUCOSE (test code = 133 MG/DL 60-99 H POCGLU) POC SAMPLE SOURCE (test Arterial Descript Specimen code = POCSAMPLE) LACTIC ACID POC (test code 0.68 mmol/L 0.7-2.0 L = LACTP) POC ARTERIAL BLOOD [id number] 12:24:00 Test Item Value Reference Range Interpretation Comments POC ARTERIAL BLOOD GAS PH 7.361 7.35-7.45 N (test code = POCPHA) POC ARTERIAL BLOOD GAS PCO2 50.5 mmHg 35.0-45.0 HH (test code = XTREMP0Y) POC ARTERIAL BLOOD GAS PO2 552.3 75.0-100.0 HH (test code = YXUKN0N) POC HCO3 ARTERIAL (test 28.6 MMOL/L 20.0-26.0 HH code = JDBMQV7A) POC BASE EXCESS (test code 2.6 MMOL/L -3.0-3.0 N = POCBEA) POC O2 SATURATION (test 100.0 % 92.0-98.5 H code = POCO2S) SODIUM (test code = NA/ABG) 140 MMOL/L 135-141 N POTASSIUM (test code = 4.0 MMOL/L 3.7-4.7 N K/ABG) CHLORIDE (test code = 103 MEQ/L CL/ABG) POC IONIZED CALCIUM (test 1.02 MMOL/L 1.13-1.32 L code = POCCA) POC GLUCOSE (test code = 131 MG/DL 60-99 H POCGLU) POC SAMPLE SOURCE (test Arterial Descript Specimen code = POCSAMPLE) LACTIC ACID POC (test code 1.07 mmol/L 0.7-2.0 N = LACTP) POC ARTERIAL BLOOD [id number] 11:34:00 Test Item Value Reference Range Interpretation Comments POC ARTERIAL BLOOD GAS PH 7.349 7.35-7.45 L (test code = POCPHA) POC ARTERIAL BLOOD GAS PCO2 46.3 mmHg 35.0-45.0 H (test code = TQXZAJ5G) POC ARTERIAL BLOOD GAS PO2 428.0 75.0-100.0 HH (test code = ECICR6R) POC HCO3 ARTERIAL (test 25.5 MMOL/L 20.0-26.0 N code = CQYRUW6J) POC BASE EXCESS (test code -0.5 MMOL/L -3.0-3.0 N = POCBEA) POC O2 SATURATION (test 100.0 % 92.0-98.5 H code = POCO2S) SODIUM (test code = NA/ABG) 140 MMOL/L 135-141 N POTASSIUM (test code = 4.3 MMOL/L 3.7-4.7 N K/ABG) CHLORIDE (test code = 108 MEQ/L CL/ABG) POC IONIZED CALCIUM (test 1.21 MMOL/L 1.13-1.32 N code = POCCA) POC GLUCOSE (test code = 139 MG/DL 60-99 H POCGLU) POC SAMPLE SOURCE (test Arterial Descript Specimen code = POCSAMPLE) LACTIC ACID POC (test code 0.95 mmol/L 0.7-2.0 N = LACTP) POC ARTERIAL BLOOD [id number] 10:23:00 Test Item Value Reference Range Interpretation Comments POC ARTERIAL BLOOD GAS PH 7.406 7.35-7.45 N (test code = POCPHA) POC ARTERIAL BLOOD GAS PCO2 39.5 mmHg 35.0-45.0 N (test code = VORECX6O) POC ARTERIAL BLOOD GAS PO2 361.4 75.0-100.0 HH (test code = RDBZR9Y) POC HCO3 ARTERIAL (test 24.8 MMOL/L 20.0-26.0 N code = FJLGTI1R) POC BASE EXCESS (test code 0.1 MMOL/L -3.0-3.0 N = POCBEA) POC O2 SATURATION (test 100.0 % 92.0-98.5 H code = POCO2S) SODIUM (test code = NA/ABG) 142 MMOL/L 135-141 H POTASSIUM (test code = 4.0 MMOL/L 3.7-4.7 N K/ABG) CHLORIDE (test code = 108 MEQ/L CL/ABG) POC IONIZED CALCIUM (test 1.22 MMOL/L 1.13-1.32 N code = POCCA) POC GLUCOSE (test code = 101 MG/DL 60-99 H POCGLU) POC SAMPLE SOURCE (test Arterial Descript Specimen code = POCSAMPLE) LACTIC ACID POC (test code 0.40 mmol/L 0.7-2.0 L = LACTP) POC ARTERIAL BLOOD [id number] 08:49:00 Test Item Value Reference Range Interpretation Comments POC ARTERIAL BLOOD GAS PH 7.414 7.35-7.45 N (test code = POCPHA) POC ARTERIAL BLOOD GAS PCO2 37.3 mmHg 35.0-45.0 N (test code = HJHQDU0Z) POC ARTERIAL BLOOD GAS PO2 78.3 75.0-100.0 N (test code = GICGJ2K) POC HCO3 ARTERIAL (test 23.8 MMOL/L 20.0-26.0 N code = ODEZRK4C) POC BASE EXCESS (test code -0.5 MMOL/L -3.0-3.0 N = POCBEA) POC O2 SATURATION (test 95.7 % 92.0-98.5 N code = POCO2S) SODIUM (test code = NA/ABG) 141 MMOL/L 135-141 N POTASSIUM (test code = 3.8 MMOL/L 3.7-4.7 N K/ABG) CHLORIDE (test code = 107 MEQ/L CL/ABG) POC IONIZED CALCIUM (test 1.21 MMOL/L 1.13-1.32 N code = POCCA) POC GLUCOSE (test code = 115 MG/DL 60-99 H POCGLU) POC SAMPLE SOURCE (test Arterial Descript Specimen code = POCSAMPLE) LACTIC ACID POC (test code 0.60 mmol/L 0.7-2.0 L = LACTP) GLUCOSE BEDSIDE [id number] 08:03:00 Test Item Value Reference Range Interpretation Comments GLUCOSE BEDSIDE TESTING (test code 117 MG/DL 60-99 H = GLUBED) HIV 12 AB [id number] 17:23:00 Test Item Value Reference Range Interpretation Comments HIV 1 2 COMBO AG/AB SCREEN AB/AG NON REACTIVE NONREACTIVE (test code = [id number]) COMPREHENSIVE METABOLIC [id number] 16:48:00 Test Item Value Reference Range Interpretation Comments SODIUM (test code 141 MMOL/L 137-145 N = NA) POTASSIUM (test 4.5 MMOL/L 3.5-5.1 N code = K) CHLORIDE (test 105 MMOL/L 98-107 N code = CL) CARBON DIOXIDE 30 MMOL/L 22-30 N (test code = CO2) GLUCOSE (test 79 MG/DL 74-106 N code = GLU) BLOOD UREA 24 MG/DL 9-20 H NITROGEN (test code = BUN) GLOMERULAR 55 Reporting units : FILTRATION RATE ml/min/1.73 m2 (Modified (test code = GFR) MDRD Formu la)Reference Range: > or = 6 0 ml/min/1.73 m2 CREATININE (test 1.30 MG/DL 0.66-1.25 H code = CREAT) TOTAL PROTEIN 7.5 G/DL 6.2-7.6 N [facility] Clinical Diagnostic (test code = has made us yao re of PROT) newinformation regarding the potential i nterference ofEltrombopag ( a bone marrow stimulan t used to treatthrombocyt onmenia and aplastic anemia ) with specific assays on the Vitros 5600 of which Total Protein is one of thoseassays per formed in our lab.Interfe rence testing perform ed at [facility] determined that Eltrombopag does interfere with Vitros Total Protein asfollowsEltrom bopag Interference fo r Vitros Product Total Protein:======= Eltrombopag Max Observed Av g. BiasConcentrati on Concentration Concentration== ==== 2.5 mg/dl 6.0 g/dl +0.41 +0.34 3.5 mg/dl 6.0 g /dl +0.50 +0.45 5 mg/dl 6 .0 g/dl +0.73 +0.65 2.5 mg/dl 8.0 g/dl +0.44 +0. 41 3.5 mg/dl 8.0 g/dl +0.55 +0.52 5 mg/dl 8.0 g/dl +0.86 +0.77 ALBUMIN (test 4.2 G/DL 3.5-5.0 N code = ALB) CALCIUM (test 9.6 MG/DL 8.4-10.2 N code = CA) BILIRUBIN TOTAL 0.4 MG/DL 0.2-1.3 N Eltrombopag Interference (test code = for Vitros Prod uct TBil, BILT) BuBc: Assa y Eltrombopag Xiomy lyte/ Max Observed Avg. B ias Concentration C oncentration Concentration== ====TBil 7mg/dl TBil/ 1. 2mg/dl +0.23mg.dl +0.2 0mg/dlBuBc 3.5mg/dl Bu/0.8 mg/dl +0.25mg/dl +0.2 4mg/dlBuBc 7 mg/dl Bu/14.2mg /dl +0.38mg/dl +0.2 5mg/dlBuBc 5mg/dl Bc/0mg/d l +0.25mg/dl +0.15mg/dlBuBc 3.5mg/dl Bc/2.8mg/dl +0. 25mg/dl +0.23mg/dl SGOT/AST (test 30 UNITS/L 17-59 N code = AST) SGPT/ALT (test 35 UNITS/L 0-49 N code = ALT) ALKALINE 67 UNITS/L 38-126 N PHOSPHATASE (test code = ALKP) PROTHROMBIN [id number] 16:44:00 Test Item Value Reference Range Interpretation Comments PROTHROMBIN TIME 11.1 SECONDS 9.4-12.7 PATIENT (test code = PTP) INTERNATIONAL NORMAL 1.0 0.86-1.14 N The INR is to be RATIO (test code = used only for INR) monitoring oral anticoagulantth erap y. INDICATION I NR VALUE ---- ---- ---- -------1. Prophylaxis, de ep venous thrombos is, including high risk surgery. 2.0 - 3.0 2. Prophylaxis, deep venous thrombosis, hip surgery, treatm ent for deep venous thrombosis or pulmonary prevention of systemic emboli sm in patients wit h valvular heart disease, atrial fibrillation, tissue heart va lve, or acute myocar dial infarction. 2.0 - 3.0 3. Senior Case Manager al prosthesis hear t valves, recurre nt systemic emboli sm. 3.0 - 4.5 PTT [id number] 16:44:00 Test Item Value Reference Range Interpretation Comments PTT ACTIVATED (test code = APTT) 40.3 SECONDS 26.2-35.4 H PLT RESPONSE TO [id number] 16:35:00 Test Item Value Reference Range Interpretation Comments PLT RESPONSE TO 239 PRU 194-418 N P2Y12 Result s PLAVIX (test code = Interpre tation: Test PLAVRES) results are in P2Y12 Reaction Units (PRU). Pre-Drug Refere nce Range is 194-418. Pre -drug platelet functi on estimates the t otal possible platel et aggregation ind ependent of P2Y12 inhibi tor drugs. Values <194 cou ld be due to low HCT, low platelet count, or prese nce of IIb/IIIa inhibi tors. Post-Drug Resul ts: Lower PRU levels are associated with expected antiplatelet ef fect. Values may be b elow the stated referenc e range. Studies show th at patients with < 230 PRU had fewer adver se events. IS PATIENT ON ANTICOAGULANTS: YLIST ANTICOAGULANTS: AspirinGLYCOSYLATED HEMOGLOBIN [id number] 16:34:00 Test Item Value Reference Range Interpretation Comments GLYCOSYLATED 12.2 % 4.8-5.9 H Any condition t hat HEMOGLOBIN (HA1C) shortens e rythocyte (test code = survival or dec reasesmean GLYHGB) erythrocyte age (e.g., recovery from a cute blood loss,hemolytic anemia) will falsely lo wer HGBA1c resultsregardle ss of the method used. HG BA1c results from alex lind HbSS, HbCC, and HbSc must be interpreted with cautiongiven th e pathological pr ocesses, including anemia,increase d red cell turnover, trans fusion requirements, thatadversely i mpact HGBA1c as a mar ker of long-term glycemiccontrol . Alternative for ms of testing such as fructosaminesho uld be considered for these patients. MEAN BLOOD GLUCOSE 303 MG/DL 70-110 H (test code = MBG) CBC W/AUTO [id number] 16:26:00 Test Item Value Reference Range Interpretation Comments WHITE BLOOD CELL (test code = 9.1 K/MM3 3.8-9.8 N WBC) RED BLOOD CELL (test code = 4.52 M/MM3 3.95-5.67 N RBC) HEMOGLOBIN (test code = HGB) 13.6 G/DL 12.4-16.7 N HEMATOCRIT (test code = HCT) 40.8 % 35.9-49.5 N MEAN CELL VOLUME (test code = 90 fL 81.7-96.1 N MCV) MEAN CELL HGB (test code = MCH) 30.1 pg 27.6-33.2 N MEAN CELL HGB CONCETRATION 33.3 % 32.9-35.5 N (test code = MCHC) RED CELL DISTRIBUTION WIDTH 12.6 % 12.1-15.2 N (test code = RDW) PLATELET COUNT (test code = 227 K/MM3 129-368 N PLT) MEAN PLATELET VOLUME (test code 9.9 fl 7.4-10.4 N = MPV) NEUTROPHIL % (test code = NT%) 58.4 % 43-75 N IMMATURE GRANULOCYTE % (test 0.2 % 0.0-2.0 N code = IG%) LYMPHOCYTE % (test code = LY%) 31.8 % 14-44 N MONOCYTE % (test code = MO%) 7.3 % 4-13 N EOSINOPHIL % (test code = EO%) 1.9 % 0-6 N BASOPHIL % (test code = BA%) 0.4 % 0-2 N NUCLEATED RBC % (test code = 0.0 % 0-1.0 N NRBC%) NEUTROPHIL # (test code = NT#) 5.29 K/mm3 2.0-7.6 N IMMATURE GRANULOCYTE # (test 0.02 x10 3/uL 0-0.03 N code = IG#) LYMPHOCYTE # (test code = LY#) 2.88 K/mm3 1.0-3.8 N MONOCYTE # (test code = MO#) 0.66 K/mm3 0.1-0.8 N EOSINOPHIL # (test code = EO#) 0.17 K/mm3 0.0-0.2 N BASOPHIL # (test code = BA#) 0.04 K/mm3 0.0-0.2 N NUCLEATED RBC # (test code = 0.00 K/mm3 0.0-0.1 N NRBC#) COVID 19 Asymptomatic IH [id number] 16:00:00 Test Item Value Reference Range Interpretation Comments COVID 19 NEGATIVE Negative "Negative resul ts from Asymptomatic IH AG patients with symptom (test code = onset beyondfiv e days, COVNONPUIAG) should be treat ed as presumptive, andconfirmation with a molecular assay , if necessary forpa tient management may be performed. Nega tive results do notr ule out COVID-19 and sh ould not be used as the sole basisfor treatm ent or patient managem ent decisions, includinginfect ion control decisio ns. Negative result s should beconsidered in the context of a pa tients recent exposure s,history, and the presenc e of clinical signs and symptomsconsist ent with COVID-19.This t est detects both vi able andnon-viable S ARS-CoV and SARS CoV-2. Test performance dep endson the amount of virus (antigen) in the sample." - XR CHEST 2 [id number] 15:57:00 [facility] 1955 Sex: M Patient Name: GARCÍA MARRERO Unit No: [id number] EXAMS: CPT CODE: [id number] XR CHEST 2 V 60293 EXAM: CHEST 2 VIEWS INDICATION: PREOP LOCATION: B2 COMPARISON: CT dated November 28, 2021 TECHNIQUE: PA and lateral views of the chest. FINDINGS: The heart size is normal. The lungs are clear bilaterally. Thepulmonary vasculature is normal. No pneumothorax or pleural effusion is identified. The osseous struc tures are normal. IMPRESSION: No acute cardiopulmonary process. at 1557 Reported and signed by: Maria Dolores Mitchell MD CC: Golden Awad MD Technologist: Jodie Gaviria RT Transcrpt Date/Tm/Trnsp: 12/04/2021 (1557) [id number] Orig Print D/T: S: 12/04/2021 (1600) [facility] NAME: GARCÍA MARRERO [id number] PHYS: [place] [address] : 1955 AGE: 66 SEX: M LOC: ELIECER PHONE #: [phone] EXAM DATE: 12/04/2021 STATUS: PRE IN FAX #: [phone] RADIOLOGY NO: PAGE 1 Signed ReportGLUCOSE BEDSIDE [id number] 11:18:00 Test Item Value Reference Range Interpretation Comments GLUCOSE BEDSIDE TESTING (test code 279 MG/DL 60-99 H = GLUBED) GLUCOSE BEDSIDE [id number] 07:46:00 Test Item Value Reference Range Interpretation Comments GLUCOSE BEDSIDE TESTING (test code 115 MG/DL 60-99 H = GLUBED) GLUCOSE BEDSIDE [id number] 00:49:00 Test Item Value Reference Range Interpretation Comments GLUCOSE BEDSIDE TESTING (test code = 88 MG/DL 60-99 N GLUBED) GLUCOSE BEDSIDE [id number] 18:50:00 Test Item Value Reference Range Interpretation Comments GLUCOSE BEDSIDE TESTING (test code 190 MG/DL 60-99 H = GLUBED) GLUCOSE BEDSIDE [id number] 16:03:00 Test Item Value Reference Range Interpretation Comments GLUCOSE BEDSIDE TESTING (test code 257 MG/DL 60-99 H = GLUBED) GLUCOSE BEDSIDE [id number] 12:26:00 Test Item Value Reference Range Interpretation Comments GLUCOSE BEDSIDE TESTING (test code 308 MG/DL 60-99 HH = GLUBED) GLUCOSE BEDSIDE [id number] 11:17:00 Test Item Value Reference Range Interpretation Comments GLUCOSE BEDSIDE TESTING (test code 322 MG/DL 60-99 HH = GLUBED) GLUCOSE BEDSIDE [id number] 07:14:00 Test Item Value Reference Range Interpretation Comments GLUCOSE BEDSIDE TESTING (test code 169 MG/DL 60-99 H = GLUBED) - CT CHEST W/O [id number] 06:43:00 [facility] ANDREW : 1955 Sex: M Patient Name: GARCÍA MARRERO Unit No: [id number] EXAMS: CPT CODE: [id number] CT CHEST W/O CONTRAST 86888 EXAM: - CT CHEST W/O CONTRAST HISTORY: CAD, Aortic stenosis Location code:C3 TECHNIQUE: Axial tomograms through the chest were obtained without intravenous contrast. Coronal and sagittal reformatted images are provided. Automated exposure reduction (Auto mA/Smart mA) was utilized in compliance with ACR Image Wisely. COMPARISON: None available time of interpretation. Statement: Please note that simple renal cysts or adrenal adenomas are benign and no further imaging follow-up is necessary. FINDINGS: LUNGS: The lungs are clear. PLEURA: No pleural effusion or pneumothorax. VASCULATURE: Advanced coronary artery calcifications are present. TRACHEOBRONCHIAL TREE: The trachea and lobar bronchi are unremarkable. LYMPHATICS: There is no gross adenopathy accounting for lack of intravenous contrast. VISUALIZED ABDOMEN: Diminished attenuation to the hepatic parenchyma is present. BONES: No acute osseous findings. SOFT TISSUES: Unremarkable. OTHER: No significant additional findings. IMPRESSION: 1. Fatty infiltration of the liver. No acute consolidation. 2. Dense coronary artery calcifications. at 0643 Reported and signed by: Tobi Richard MD CC: Golden Awad MD; Shahid Jensen MD; Irene JOHNSON; Faustino Robles MD Technologist: Vinicius Baxter, RT(R)(CT) CTDI: DLP: Trnscrpt: 11/28/2021 (0643) [email or web address] [facility] NAME: GARCÍA MARRERO [id number] PHYS: [place] [address] :1955 AGE: 66 SEX: M LOC: Z.362 A PHONE #: [phone] EXAM DATE: 11/28/2021 STATUS: ADM IN FAX #: [phone] RAD #: D/C DT PAGE 1 Signed Report Patient Name: GARCÍA MARRERO Unit No: [id number] EXAMS: CPT CODE: [id number] CT CHEST W/O CONTRAST 66309 (Continued) Orig Print D/T: S: 11/28/2021 (0647) [facility] NAME: GARCÍA MARRERO [id number] PHYS: [place] [address] : 1955 AGE: 66 SEX: M LOC: Z.362 A PHONE#: [phone] EXAM DATE: 11/28/2021 STATUS: ADM IN FAX #: [phone] RAD #: D/C DT PAGE 2 Signed ReportGLUCOSE BEDSIDE [id number] 21:15:00 Test Item Value Reference Range Interpretation Comments GLUCOSE BEDSIDE TESTING (test code 208 MG/DL 60-99 H = GLUBED) GLUCOSE BEDSIDE [id number] 15:42:00 Test Item Value Reference Range Interpretation Comments GLUCOSE BEDSIDE TESTING (test code 150 MG/DL 60-99 H = GLUBED) GLUCOSE BEDSIDE [id number] 11:41:00 Test Item Value Reference Range Interpretation Comments GLUCOSE BEDSIDE TESTING (test code 251 MG/DL 60-99 H = GLUBED) GLUCOSE BEDSIDE [id number] 07:19:00 Test Item Value Reference Range Interpretation Comments GLUCOSE BEDSIDE TESTING (test code 204 MG/DL 60-99 H = GLUBED) GLUCOSE BEDSIDE [id number] 20:30:00 Test Item Value Reference Range Interpretation Comments GLUCOSE BEDSIDE TESTING 246 MG/DL 60-99 H Noti fied Nurse~ (test code = GLUBED) GLUCOSE BEDSIDE [id number] 17:23:00 Test Item Value Reference Range Interpretation Comments GLUCOSE BEDSIDE TESTING (test code 311 MG/DL 60-99 HH = GLUBED) GLUCOSE BEDSIDE [id number] 13:55:00 Test Item Value Reference Range Interpretation Comments GLUCOSE BEDSIDE TESTING (test code 325 MG/DL 60-99 HH = GLUBED) GLUCOSE BEDSIDE [id number] 12:31:00 Test Item Value Reference Range Interpretation Comments GLUCOSE BEDSIDE TESTING (test code 385 MG/DL 60-99 HH = GLUBED) GLYCOSYLATED HEMOGLOBIN [id number] 07:32:00 Test Item Value Reference Range Interpretation Comments GLYCOSYLATED 13.5 % 4.8-5.9 H Any condition t hat HEMOGLOBIN (HA1C) shortens e rythocyte (test code = survival or dec reasesmean GLYHGB) erythrocyte age (e.g., recovery from a cute blood loss,hemolytic anemia) will falsely lo wer HGBA1c resultsregardle ss of the method used. HG BA1c results from alex lind HbSS, HbCC, and HbSc must be interpreted with cautiongiven th e pathological pr ocesses, including anemia,increase d red cell turnover, trans fusion requirements, thatadversely i mpact HGBA1c as a mar ker of long-term glycemiccontrol . Alternative for ms of testing such as fructosaminesho uld be considered for these patients. MEAN BLOOD GLUCOSE 341 MG/DL 70-110 H (test code = MBG) COMPREHENSIVE METABOLIC [id number] 06:48:00 Test Item Value Reference Range Interpretation Comments SODIUM (test code 137 MMOL/L 137-145 N = NA) POTASSIUM (test 4.1 MMOL/L 3.5-5.1 N code = K) CHLORIDE (test 102 MMOL/L 98-107 N code = CL) CARBON DIOXIDE 26 MMOL/L 22-30 N (test code = CO2) ANION GAP (test 13 MMOL/L 14-24 L code = GAP) GLUCOSE (test 308 MG/DL 74-106 HH CALLED TO PORFIRIO June& code = GLU) READBACK ON 02/06 AT 0648 BY Mary Ann Iglesias BLOOD UREA 21 MG/DL 9-20 H NITROGEN (test code = BUN) GLOMERULAR > 60 Reporting units : FILTRATION RATE ml/min/1.73 m2 (Modified (test code = GFR) MDRD Formu la)Reference Range: > or = 6 0 ml/min/1.73 m2 CREATININE (test 1.20 MG/DL 0.66-1.25 N code = CREAT) TOTAL PROTEIN < 2.0 G/DL 6.2-7.6 L [facility] Clinical Diagnostic (test code = has made us yao re of PROT) newinformation regarding the potential i nterference ofEltrombopag ( a bone marrow stimulan t used to treatthrombocyt onmenia and aplastic anemia ) with specific assays on the Vitros 5600 of which Total Protein is one of thoseassays per formed in our lab.Gilbertoe gonzalo testing perform ed at [facility] determined that Eltrombopag does interfere with Vitros Total Protein asfollowsEltrom bopag Interference fo r Vitros Product Total Protein:======= Eltrombopag Max Observed Av g. BiasConcentrati on Concentration Concentration== ==== 2.5 mg/dl 6.0 g/dl +0.41 +0.34 3.5 mg/dl 6.0 g /dl +0.50 +0.45 5 mg/dl 6 .0 g/dl +0.73 +0.65 2.5 mg/dl 8.0 g/dl +0.44 +0.4 1 3.5 mg/dl 8.0 g/dl +0.55 +0.52 5 mg/dl 8.0 g/dl +0.86 +0.77 ALBUMIN (test 3.9 G/DL 3.5-5.0 N code = ALB) CALCIUM (test 8.9 MG/DL 8.4-10.2 N code = CA) BILIRUBIN TOTAL 0.5 MG/DL 0.2-1.3 N Eltrombopag Interference (test code = for Vitros Prod uct TBil, BILT) BuBc: Assa y Eltrombopag Xiomy lyte/ Max Observed Avg. B ias Concentration C oncentration Concentration== ====TBil 7mg/dl TBil/ 1. 2mg/dl +0.23mg.dl +0.2 0mg/dlBuBc 3.5mg/dl Bu/0.8 mg/dl +0.25mg/dl +0.2 4mg/dlBuBc 7 mg/dl Bu/14.2mg /dl +0.38mg/dl +0.2 5mg/dlBuBc 5mg/dl Bc/0mg/d l +0.25mg/dl +0.15mg/dlBuBc 3.5mg/dl Bc/2.8mg/dl +0. 25mg/dl +0.23mg/dl SGOT/AST (test 32 UNITS/L 17-59 N code = AST) SGPT/ALT (test 40 UNITS/L 0-49 N code = ALT) ALKALINE 91 UNITS/L 38-126 N PHOSPHATASE (test code = ALKP) CBC W/AUTO [id number] 06:28:00 Test Item Value Reference Range Interpretation Comments WHITE BLOOD CELL (test code = 6.6 K/MM3 3.8-9.8 N WBC) RED BLOOD CELL (test code = 4.54 M/MM3 3.95-5.67 N RBC) HEMOGLOBIN (test code = HGB) 13.4 G/DL 12.4-16.7 N HEMATOCRIT (test code = HCT) 40.8 % 35.9-49.5 N MEAN CELL VOLUME (test code = 90 fL 81.7-96.1 N MCV) MEAN CELL HGB (test code = MCH) 29.5 pg 27.6-33.2 N MEAN CELL HGB CONCETRATION 32.8 % 32.9-35.5 L (test code = MCHC) RED CELL DISTRIBUTION WIDTH 12.5 % 12.1-15.2 N (test code = RDW) PLATELET COUNT (test code = 160 K/MM3 129-368 N PLT) MEAN PLATELET VOLUME (test code 10.8 fl 7.4-10.4 H = MPV) NEUTROPHIL % (test code = NT%) 53.1 % 43-75 N IMMATURE GRANULOCYTE % (test 0.3 % 0.0-2.0 N code = IG%) LYMPHOCYTE % (test code = LY%) 37.5 % 14-44 N MONOCYTE % (test code = MO%) 6.5 % 4-13 N EOSINOPHIL % (test code = EO%) 2.1 % 0-6 N BASOPHIL % (test code = BA%) 0.5 % 0-2 N NUCLEATED RBC % (test code = 0.0 % 0-1.0 N NRBC%) NEUTROPHIL # (test code = NT#) 3.53 K/mm3 2.0-7.6 N IMMATURE GRANULOCYTE # (test 0.02 x10 3/uL 0-0.03 N code = IG#) LYMPHOCYTE # (test code = LY#) 2.49 K/mm3 1.0-3.8 N MONOCYTE # (test code = MO#) 0.43 K/mm3 0.1-0.8 N EOSINOPHIL # (test code = EO#) 0.14 K/mm3 0.0-0.2 N BASOPHIL # (test code = BA#) 0.03 K/mm3 0.0-0.2 N NUCLEATED RBC # (test code = 0.00 K/mm3 0.0-0.1 N NRBC#) GLUCOSE BEDSIDE [id number] 20:13:00 Test Item Value Reference Range Interpretation Comments GLUCOSE BEDSIDE TESTING (test code 318 MG/DL 60-99 HH = GLUBED) GLUCOSE BEDSIDE [id number] 15:48:00 Test Item Value Reference Range Interpretation Comments GLUCOSE BEDSIDE TESTING (test code 307 MG/DL 60-99 HH = GLUBED) GLUCOSE BEDSIDE [id number] 12:39:00 Test Item Value Reference Range Interpretation Comments GLUCOSE BEDSIDE TESTING (test code 290 MG/DL 60-99 H = GLUBED) GLUCOSE BEDSIDE [id number] 10:34:00 Test Item Value Reference Range Interpretation Comments GLUCOSE BEDSIDE TESTING (test code 356 MG/DL 60-99 HH = GLUBED) POC VENOUS BLOOD [id number] 09:03:00 Test Item Value Reference Range Interpretation Comments POC VENOUS BLOOD GAS PH (test 7.309 7.35-7.45 L code = POCPHV) POC VENOUS BLOOD GAS PCO2 50.1 mmHg 35.0-45.0 H (test code = VFZQZE1Y) POC VENOUS BLOOD GAS PO2 36.5 mmHG 0-40 N (test code = IMCHE0M) POC HCO3 VENOUS (test code = 25.2 MMOL/L 20-26 N HGKTIB9C) POC BASE EXCESS VENOUS (test -1.7 MMOL/L -3.0-3.0 N code = POCBEV) POC O2 SATURATION VENOUS 63.6 % 72-77 L (test code = JKRG6DH) POC SAMPLE SOURCE (test code Venous Descript Specimen = POCSAMPLE) LACTIC ACID POC (test code = 1.41 mmol/L 0.7-2.0 N LACTP) POC ARTERIAL BLOOD [id number] 08:56:00 Test Item Value Reference Range Interpretation Comments POC ARTERIAL BLOOD GAS PH 7.289 7.35-7.45 LL (test code = POCPHA) POC ARTERIAL BLOOD GAS PCO2 54.1 mmHg 35.0-45.0 HH (test code = SMRTON5C) POC ARTERIAL BLOOD GAS PO2 47.4 75.0-100.0 LL (test code = GLVSM2X) POC HCO3 ARTERIAL (test 25.9 MMOL/L 20.0-26.0 N code = SXVQQS1B) POC BASE EXCESS (test code -1.5 MMOL/L -3.0-3.0 N = POCBEA) POC O2 SATURATION (test 77.2 % 92.0-98.5 L code = POCO2S) SODIUM (test code = NA/ABG) 135 MMOL/L 135-141 N POTASSIUM (test code = 3.5 MMOL/L 3.7-4.7 L K/ABG) CHLORIDE (test code = 102 MEQ/L CL/ABG) POC IONIZED CALCIUM (test 1.16 MMOL/L 1.13-1.32 N code = POCCA) POC GLUCOSE (test code = 418 MG/DL 60-99 HH POCGLU) POC SAMPLE SOURCE (test Arterial Descript Specimen code = POCSAMPLE) LACTIC ACID POC (test code 1.39 mmol/L 0.7-2.0 N = LACTP) GLUCOSE BEDSIDE [id number] 08:21:00 Test Item Value Reference Range Interpretation Comments GLUCOSE BEDSIDE TESTING 452 MG/DL 60-99 HH Noti fied Nurse~ (test code = GLUBED) LIPID PROFILE (CORONARY RISK)[id number] 06:44:00 Test Item Value Reference Range Interpretation Comments TRIGLYCERIDES (test 838 MG/DL 150-199 H TRIGLYCE RIDES code = TRIG) REFERENCE RANGE:Normal: < 150 mg/dLBorderline High: 150-199 mg/dLHi gh: 200-499 mg/dLVe ry High: >=500 mg/ dL CHOLESTEROL (test code 211 MG/DL <200 = CHOL) HDL CHOLESTEROL (test 40 MG/DL 40-59 N code = HDL) LIPOPROTEIN LDL (test 71 MG/DL 0-99 N OPTIM AL.........<100 code = LDL) mg/dLNEAR OPTIMAL/ABOVE OPTIMAL........ .100-12 9 mg/dL BORDERL INE HIGH.........13 0-159 mg/dL HIGH.........16 0-189 mg/dL VERY HIGH.........>/ = 190 mg/dL [id number] 06:44:00 Test Item Value Reference Range Interpretation Comments MAGNESIUM (test code = MAG) 1.8 MG/DL 1.6-2.3 N BASIC METABOLIC [id number] 06:44:00 Test Item Value Reference Range Interpretation Comments SODIUM (test code = 131 MMOL/L 137-145 L NA) POTASSIUM (test code = 4.2 MMOL/L 3.5-5.1 N K) CHLORIDE (test code = 98 MMOL/L 98-107 N CL) CARBON DIOXIDE (test 23 MMOL/L 22-30 N code = CO2) ANION GAP (test code = 14 MMOL/L 14-24 N GAP) GLUCOSE (test code = 471 MG/DL 74-106 HH CALLED TO TEE.W& GLU) READBACK ON 01/06 AT 0622 BY Nazanin Elaine BLOOD UREA NITROGEN 32 MG/DL 9-20 H (test code = BUN) GLOMERULAR FILTRATION 51 Report ing units: RATE (test code = GFR) ml/mi n/1.73 m2 (Modified MDRD Formula)Referen ce Range: > or = 6 0 ml/min/1.73 m2 CREATININE (test code 1.40 MG/DL 0.66-1.25 H = CREAT) CALCIUM (test code = 9.3 MG/DL 8.4-10.2 N CA) PROTHROMBIN [id number] 05:58:00 Test Item Value Reference Range Interpretation Comments PROTHROMBIN TIME 9.8 SECONDS 9.4-12.7 N PATIENT (test code = PTP) INTERNATIONAL NORMAL 0.9 0.86-1.14 N The INR is to be RATIO (test code = INR) used only for monitoring oral anticoagulantth erap y. INDICATION I NR VALUE ---- ---- ---- -------1. Prophylaxis, de ep venous thrombos is, including high risk surgery. 2.0 - 3.0 2. Prophylaxis, deep venous thrombosis, hip surgery, treatm ent for deep venous thrombosis or pulmonary prevention of systemic emboli sm in patients wit h valvular heart disease, atrial fibrillation, tissue heart va lve, or acute myocar dial infarction. 2. 0 - 3.0 3. Senior Case Manager al prosthesis hear t valves, recurre nt systemic emboli sm. 3.0 - 4.5 PTT [id number] 05:58:00 Test Item Value Reference Range Interpretation Comments PTT ACTIVATED (test code = APTT) 34.2 SECONDS 26.2-35.4 N CBC W/AUTO [id number] 05:46:00 Test Item Value Reference Range Interpretation Comments WHITE BLOOD CELL (test code = 8.9 K/MM3 3.8-9.8 N WBC) RED BLOOD CELL (test code = 4.64 M/MM3 3.95-5.67 N RBC) HEMOGLOBIN (test code = HGB) 14.0 G/DL 12.4-16.7 N HEMATOCRIT (test code = HCT) 40.9 % 35.9-49.5 N MEAN CELL VOLUME (test code = 88 fL 81.7-96.1 N MCV) MEAN CELL HGB (test code = MCH) 30.2 pg 27.6-33.2 N MEAN CELL HGB CONCETRATION 34.2 % 32.9-35.5 N (test code = MCHC) RED CELL DISTRIBUTION WIDTH 12.4 % 12.1-15.2 N (test code = RDW) PLATELET COUNT (test code = 192 K/MM3 129-368 N PLT) MEAN PLATELET VOLUME (test code 10.6 fl 7.4-10.4 H = MPV) NEUTROPHIL % (test code = NT%) 51.7 % 43-75 N IMMATURE GRANULOCYTE % (test 0.3 % 0.0-2.0 N code = IG%) LYMPHOCYTE % (test code = LY%) 38.7 % 14-44 N MONOCYTE % (test code = MO%) 6.8 % 4-13 N EOSINOPHIL % (test code = EO%) 1.9 % 0-6 N BASOPHIL % (test code = BA%) 0.6 % 0-2 N NUCLEATED RBC % (test code = 0.0 % 0-1.0 N NRBC%) NEUTROPHIL # (test code = NT#) 4.62 K/mm3 2.0-7.6 N IMMATURE GRANULOCYTE # (test 0.03 x10 3/uL 0-0.03 N code = IG#) LYMPHOCYTE # (test code = LY#) 3.46 K/mm3 1.0-3.8 N MONOCYTE # (test code = MO#) 0.61 K/mm3 0.1-0.8 N EOSINOPHIL # (test code = EO#) 0.17 K/mm3 0.0-0.2 N BASOPHIL # (test code = BA#) 0.05 K/mm3 0.0-0.2 N NUCLEATED RBC # (test code = 0.00 K/mm3 0.0-0.1 N NRBC#) COVID 19 Asymptomatic IH [id number] 05:45:00 Test Item Value Reference Range Interpretation Comments COVID 19 NEGATIVE Negative "Negative resul ts from Asymptomatic IH AG patients with symptom (test code = onset beyondfiv e days, COVNONPUIAG) should be treat ed as presumptive, andconfirmation with a molecular assay , if necessary forpa tient management may be performed. Nega tive results do notr ule out COVID-19 and sh ould not be used as the sole basisfor treatm ent or patient managem ent decisions, includinginfect ion control decisio ns. Negative result s should beconsidered in the context of a pa tients recent exposure s,history, and the presenc e of clinical signs and symptomsconsist ent with COVID-19.This t est detects both vi able andnon-viable S ARS-CoV and SARS CoV-2. Test performance dep endson the amount of virus (antigen) in the sample." GLUCOSE BEDSIDE [id number] 12:32:00 Test Item Value Reference Range Interpretation Comments GLUCOSE BEDSIDE TESTING (test code 265 MG/DL 60-99 H = GLUBED) GLUCOSE BEDSIDE [id number] 12:32:00 Test Item Value Reference Range Interpretation Comments GLUCOSE BEDSIDE TESTING (test code 172 MG/DL 60-99 H = GLUBED) BASIC METABOLIC [id number] 07:53:00 Test Item Value Reference Range Interpretation Comments SODIUM (test code = 140 MMOL/L 137-145 N NA) POTASSIUM (test code = 3.8 MMOL/L 3.5-5.1 N K) CHLORIDE (test code = 101 MMOL/L 98-107 N CL) CARBON DIOXIDE (test 29 MMOL/L 22-30 N code = CO2) ANION GAP (test code = 14 MMOL/L 14-24 N GAP) GLUCOSE (test code = 164 MG/DL 74-106 H GLU) BLOOD UREA NITROGEN 18 MG/DL 9-20 N (test code = BUN) GLOMERULAR FILTRATION > 60 Report ing units: RATE (test code = GFR) ml/mi n/1.73 m2 (Modified MDRD Formula)Referen ce Range: > or = 6 0 ml/min/1.73 m2 CREATININE (test code 1.20 MG/DL 0.66-1.25 N = CREAT) CALCIUM (test code = 9.7 MG/DL 8.4-10.2 N CA) CBC W/AUTO [id number] 07:04:00 Test Item Value Reference Range Interpretation Comments WHITE BLOOD CELL (test code = 10.1 K/MM3 3.8-9.8 H WBC) RED BLOOD CELL (test code = 4.52 M/MM3 3.95-5.67 N RBC) HEMOGLOBIN (test code = HGB) 13.8 G/DL 12.4-16.7 N HEMATOCRIT (test code = HCT) 41.5 % 35.9-49.5 N MEAN CELL VOLUME (test code = 92 fL 81.7-96.1 N MCV) MEAN CELL HGB (test code = MCH) 30.5 pg 27.6-33.2 N MEAN CELL HGB CONCETRATION 33.3 % 32.9-35.5 N (test code = MCHC) RED CELL DISTRIBUTION WIDTH 13.3 % 12.1-15.2 N (test code = RDW) PLATELET COUNT (test code = 213 K/MM3 129-368 N PLT) MEAN PLATELET VOLUME (test code 10.6 fl 7.4-10.4 H = MPV) NEUTROPHIL % (test code = NT%) 71.7 % 43-75 N IMMATURE GRANULOCYTE % (test 0.4 % 0.0-2.0 N code = IG%) LYMPHOCYTE % (test code = LY%) 17.8 % 14-44 N MONOCYTE % (test code = MO%) 8.9 % 4-13 N EOSINOPHIL % (test code = EO%) 0.9 % 0-6 N BASOPHIL % (test code = BA%) 0.3 % 0-2 N NUCLEATED RBC % (test code = 0.0 % 0-1.0 N NRBC%) NEUTROPHIL # (test code = NT#) 7.21 K/mm3 2.0-7.6 N IMMATURE GRANULOCYTE # (test 0.04 x10 3/uL 0-0.03 H code = IG#) LYMPHOCYTE # (test code = LY#) 1.79 K/mm3 1.0-3.8 N MONOCYTE # (test code = MO#) 0.89 K/mm3 0.1-0.8 H EOSINOPHIL # (test code = EO#) 0.09 K/mm3 0.0-0.2 N BASOPHIL # (test code = BA#) 0.03 K/mm3 0.0-0.2 N NUCLEATED RBC # (test code = 0.00 K/mm3 0.0-0.1 N NRBC#) GLUCOSE BEDSIDE [id number] 21:04:00 Test Item Value Reference Range Interpretation Comments GLUCOSE BEDSIDE TESTING 165 MG/DL 60-99 H Noti fied Nurse~ (test code = GLUBED) GLUCOSE BEDSIDE [id number] 18:31:00 Test Item Value Reference Range Interpretation Comments GLUCOSE BEDSIDE TESTING (test code 138 MG/DL 60-99 H = GLUBED) [id number] 12:21:00 Test Item Value Reference Range Interpretation Comments ACT-ISTAT (test code = ACTI) 224 SEC 74-137 H BASIC METABOLIC [id number] 07:22:00 Test Item Value Reference Range Interpretation Comments SODIUM (test code = 140 MMOL/L 137-145 N NA) POTASSIUM (test code = 4.2 MMOL/L 3.5-5.1 N K) CHLORIDE (test code = 100 MMOL/L 98-107 N CL) CARBON DIOXIDE (test 34 MMOL/L 22-30 H code = CO2) ANION GAP (test code = 10 MMOL/L 14-24 L GAP) GLUCOSE (test code = 167 MG/DL 74-106 H GLU) BLOOD UREA NITROGEN 22 MG/DL 9-20 H (test code = BUN) GLOMERULAR FILTRATION 51 Report ing units: RATE (test code = GFR) ml/mi n/1.73 m2 (Modified MDRD Formula)Referen ce Range: > or = 6 0 ml/min/1.73 m2 CREATININE (test code 1.40 MG/DL 0.66-1.25 H = CREAT) CALCIUM (test code = 9.1 MG/DL 8.4-10.2 N CA) LIPID PROFILE (CORONARY RISK)2019-01-10 07:22:00 Test Item Value Reference Range Interpretation Comments TRIGLYCERIDES (test 295 MG/DL TRIGLYCE RIDES code = TRIG) REFERENCE RANGE:Normal: < 150 mg/dLBorderline High: 150-199 mg/dLHi gh: 200-499 mg/dLVe ry High: >=500 mg/ dL CHOLESTEROL (test code 215 MG/DL <200 = CHOL) HDL CHOLESTEROL (test 44 MG/DL 40-59 N code = HDL) LIPOPROTEIN LDL (test 150 MG/DL 0-99 H OPTIM AL.........<100 code = LDL) mg/dLNEAR OPTIMAL/ABOVE OPTIMAL........ .100-12 9 mg/dL BORDERL INE HIGH.........13 0-159 mg/dL HIGH.........16 0-189 mg/dL VERY HIGH.........>/ = 190 mg/dL [id number] 07:22:00 Test Item Value Reference Range Interpretation Comments MAGNESIUM (test code = MAG) 1.9 MG/DL 1.6-2.3 N BASIC METABOLIC [id number] 07:15:00 Test Item Value Reference Range Interpretation Comments SODIUM (test code = 140 MMOL/L 137-145 N NA) POTASSIUM (test code = 4.2 MMOL/L 3.5-5.1 N K) CHLORIDE (test code = 100 MMOL/L 98-107 N CL) CARBON DIOXIDE (test 34 MMOL/L 22-30 H code = CO2) ANION GAP (test code = 10 MMOL/L 14-24 L GAP) GLUCOSE (test code = 167 MG/DL 74-106 H GLU) BLOOD UREA NITROGEN 22 MG/DL 9-20 H (test code = BUN) GLOMERULAR FILTRATION 51 Report ing units: RATE (test code = GFR) ml/mi n/1.73 m2 (Modified MDRD Formula)Referen ce Range: > or = 6 0 ml/min/1.73 m2 CREATININE (test code 1.40 MG/DL 0.66-1.25 H = CREAT) CALCIUM (test code = 9.1 MG/DL 8.4-10.2 N CA) LIPID PROFILE (CORONARY RISK)2019-01-10 07:15:00 Test Item Value Reference Range Interpretation Comments TRIGLYCERIDES (test 295 MG/DL TRIGLYCE RIDES code = TRIG) REFERENCE RANGE:Normal: < 150 mg/dLBorderline High: 150-199 mg/dLHi gh: 200-499 mg/dLVe ry High: >=500 mg/ dL CHOLESTEROL (test code 215 MG/DL <200 = CHOL) HDL CHOLESTEROL (test 44 MG/DL 40-59 N code = HDL) LIPOPROTEIN LDL (test MG/DL 0-99 code = LDL) [id number] 07:15:00 Test Item Value Reference Range Interpretation Comments MAGNESIUM (test code = MAG) 1.9 MG/DL 1.6-2.3 N PROTHROMBIN [id number] 07:08:00 Test Item Value Reference Range Interpretation Comments PROTHROMBIN TIME 9.7 SECONDS 9.6-11.6 N PATIENT (test code = PTP) INTERNATIONAL NORMAL 0.9 0.8-1.1 N The INR is to be RATIO (test code = INR) used only for monitoring oral anticoagulantth erap y. INDICATION INR VALUE ---- ---- ---- -------1. Prophylaxis, de ep venous thrombos is, including high risk surgery. 2.0 - 3.0 2. Prophylaxis, deep venous thrombosis, hip surgery, treatm ent for deep venous thrombosis or pulmonary prevention of systemic emboli sm in patients wit h valvular heart disease, atrial fibrillation, tissue heart va lve, or acute myocar dial infarction. 2.0 - 3.0 3. Senior Case Manager al prosthesis hear t valves, recurre nt systemic emboli sm. 3.0 - 4.5 Comments to Hydrology Professor: WILL BRING TO LABPTT [id number] 07:08:00 Test Item Value Reference Range Interpretation Comments PTT ACTIVATED (test code = APTT) 31.3 SECONDS 22.0-33.0 N Comments to Hydrology Professor: WILL BRING TO LABCBC W/AUTO [id number] 06:59:00 Test Item Value Reference Range Interpretation Comments WHITE BLOOD CELL (test code = 8.6 K/MM3 3.8-9.8 N WBC) RED BLOOD CELL (test code = 4.50 M/MM3 3.95-5.67 N RBC) HEMOGLOBIN (test code = HGB) 13.9 G/DL 12.4-16.7 N HEMATOCRIT (test code = HCT) 42.5 % 35.9-49.5 N MEAN CELL VOLUME (test code = 94 fL 81.7-96.1 N MCV) MEAN CELL HGB (test code = MCH) 30.9 pg 27.6-33.2 N MEAN CELL HGB CONCETRATION 32.7 % 32.9-35.5 L (test code = MCHC) RED CELL DISTRIBUTION WIDTH 13.1 % 12.1-15.2 N (test code = RDW) PLATELET COUNT (test code = 190 K/MM3 129-368 N PLT) MEAN PLATELET VOLUME (test code 10.2 fl 7.4-10.4 N = MPV) NEUTROPHIL % (test code = NT%) 56.4 % 43-75 N IMMATURE GRANULOCYTE % (test 0.3 % 0.0-2.0 N code = IG%) LYMPHOCYTE % (test code = LY%) 32.1 % 14-44 N MONOCYTE % (test code = MO%) 9.2 % 4-13 N EOSINOPHIL % (test code = EO%) 1.7 % 0-6 N BASOPHIL % (test code = BA%) 0.3 % 0-2 N NUCLEATED RBC % (test code = 0.0 % 0-1.0 N NRBC%) NEUTROPHIL # (test code = NT#) 4.85 K/mm3 2.0-7.6 N IMMATURE GRANULOCYTE # (test 0.03 x10 3/uL 0-0.03 N code = IG#) LYMPHOCYTE # (test code = LY#) 2.76 K/mm3 1.0-3.8 N MONOCYTE # (test code = MO#) 0.79 K/mm3 0.1-0.8 N EOSINOPHIL # (test code = EO#) 0.15 K/mm3 0.0-0.2 N BASOPHIL # (test code = BA#) 0.03 K/mm3 0.0-0.2 N NUCLEATED RBC # (test code = 0.00 K/mm3 0.0-0.1 N NRBC#) Notes Date/Time Note Provider Source 2022-01-22 09:11:00-00:00 [id number] [place] [address] PATIENT NAME: GARCÍA MARRERO ADMIT DATE: 11/17 04/08 ACCOUNT NO: [id number] ROOM NO: Z.SI02 AGE: 66 REPORT TYPE: DISCHARGE SUMMARY REPORT SEX: M ADMITTING PHYSICIAN:Wil Aragon MD ATTENDING PHYSICIAN:Wil Aragon MD ADMISSION DATE: 12/06/2021 12:01:00 DISCHARGE DATE: 12/15/2021 18:30:00 DISCHARGE DIAGNOSES: Coronary artery disease, se juan ramon aortic stenosis, status post aortocoronary bypass, aortic valve replacem ent, hypertension, hyperlipidemia, diabetes mellitus, obesi ty, expected acute postoperative blood loss anemia, left hemiparesis postop, brain tumo r, mild MR, hyponatremia. HOSPITAL COURSE: The patient is a 66-year-old ma n who has had previous stents for coronary artery disease. He was seen and evaluated by his tutoring manager, Dr. Jensen and was found to have aortic binu nosis with a valve area of 0.86 with a significant gradient of 85 mmHg. The patient als o underwent cardiac catheterization, which showed multivesse l disease with 70% lesion, bifurcation of the LAD and diagonal and 90% of the PDA, PL and then 80% of proximal LAD and 70% in the circumflex. His a ortic valve area was 0.7, ejection fraction of 60%. The patient was admitted an d taken to the operating room on 12/06/2021 where he underwent an aortocoronary bypass x4, JEFFERSON to th e diagonal, saphenous vein to the LAD, to PDA and right co ronary artery and aortic valve replacement with #21 mm Mirza Inspiris bioprosthetic valve. The pat ient tolerated the procedure well, was transferred to ICU in a stable conditi on. In ICU, the patient was extubated without any diffic ulty or any issues. He was weaned off all drips and pressors. He was temporarily placed and the pat ient on postop day #2 when he got up to ambulate, he was drifting towards the left side, he developed some left-sided weakness with some left-sided hemiparesis and the patient was taken down and he had a CT scan of the brain. On the [facility] scan of the brain, the patient was noted to have a pituitary mi croadenoma. Also, of note, the patient was hypertensive, which requ ired Cardene drip and he was also having polydipsia and hyponatremia. Dr. Jhon Villegas of nephrology was consulted for management of this. The patient received aggressive physica l therapy and occupational therapy. His pacer wires were removed. He began to have an increase in strength to his left upper e xtremity and then it was decided that [facility] and conditioning of his left upper and lower extremity. The patie nt was discharged to the inpatient rehab in a stable condition. As far as his pituitary microadenoma, once he is discharged from [facility], he will follow up as an outpatient with a neurosurgeon. Also, of note, the patient was s tarted on warfarin and his PT/INR was monitored closely. He is to continue medications per the discharge MAR.. Dictated By: ALEX Sanchez for Ro israel Aragon MD Date Dictated: 01/22/2022 09:11:33 PATIENT NAME: GARCÍA MARRERO [id number] Date Transcribed: 01/22/2022 09:42:14 KCJ/TIMOTEO Receipt ID: [id number] Authenticated by ALEX Sanchez On 01/22/2022 01:59:04 PM Authenticated by Wil Aragon MD On 02:00:32 PM at 0200 at 0159 PATIENT NAME: GARCÍA MARRERO [id number] 2022-01-05 21:57:00-00:00 [facility] Hospitalist Progress Note REPORT#:[id number] REPORT STATUS: Signed DATE:01/05/22 TIME: 2156 PATIENT: GARCÍA MARRERO UNIT #: [id number] ROOM/BED: [address] : 55 AGE: 66 SEX: M ATTEND: Royal Mendez MD ADM AUTHOR: Chip Cruz MD * ALL edits or amendments must be made on the [employer] document * Subjective Chief complaint: s/p CABG and AVR Free Text Subj Notes Free Text Subj Notes: pt denies any complaints Objective General VS/I O: Vital Signs: Date Time Temp Pulse Resp B/P B/P Pulse O2 O2 F low FiO2 Mean Ox Delivery Rate 01/05 1929 98.1 83 16 100/65 77.1 98 Room air 01/05 1605 97.3 75 16 119/70 85.9 98 Room air 01/05 0724 97.7 58 14 146/82 103.5 98 Room air 01/05 0458 98.1 67 19 138/75 95.9 99 24 hour I O ending at 0700: 01/05 0700 01/04 1900 Intake Total 1120 Output Total Balance 1120 Intake, Oral 1120 Number 0 Bowel Movements Number 1 Incontinent Voids Number Voids 4 PATIENT WEIGHT: Weight (lb): 277 Weight (oz): 1.94 Weight (kg): 125.700 Physical Exam General appearance: alert, awake Head/Eyes: atraumatic, normocephalic ENT: normal nose Neck: no JVD Cardiovascular: normal heart sounds, regular rat e rhythm, sternotomy wound clean and dried without discharge Respiratory: clear to auscultation, no distress Abdomen: distended Genitourinary: no urinary catheter Rectal: not indicated Extremities: no edema Musculoskeletal: no muscle spasm Neuro/CUTTER WOOD[employer] REEDS: alert, oriented X 3, mild left leg weakness, but able to lift off bed against gravity. Motor strength much improved. Considered stroke alert: yes Skin: dry Wound/incision: Location: legs and chest incision ok Psychiatry: normal mood Results Findings/Data: Laboratory Tests 01/05 1602 1151 0721 0423 Chemistry Sodium (137 - 145 MMOL/L) 141 Potassium (3.5 - 5.1 MMOL/L) 3.9 Chloride (98 - 107 MMOL/L) 109 H Carbon Dioxide (22 - 30 MMOL/L) 25 BUN (9 - 20 MG/DL) 27 H Creatinine (0.66 - 1.25 MG/DL) 1.20 Glomerular Filtr Rate > 60 Glucose (74 - 106 MG/DL) 96 POC Glucose (60 - 99 MG/DL) 122 H 131 H 84 87 Calcium (8.4 - 10.2 MG/DL) 8.6 Laboratory Tests 01/05 0423 Coagulation INR (0.86 - 1.14) 2.0 H PT Patient/Control Mix (9.4 - 12.7 SECONDS) 22. 6 H Diagnosis, Assessment Plan Free Text DxA P Notes Free text DxA P notes: 1. S/P AVR (aortic valve replacement) Post-op pain controlled. Anticoagulation with w arfarin 10 mg QPM. INR 1.9 goal INR 2-3 2. S/P CABG x 4 Continue current meds. CVS following. Sternotom y wound dried and clean 3. 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 DM2 (diabetes mellitus, type 2) Continue Lantus 30u HS, and MDSSI. D/c glipizide to reduce risk of hypoglycemia 6. HTN (hypertension), benign - episode of hypotension, continue coreg and li sinopril. bp elevated. resume low dose norvasc 7. Thoracic aortic aneurysm, without rupture - stable TAA at 4.5 cm 8. Diabetes insipidus DDAVP nasal spray discontin ued last 4 days, pt on fluid restriction but denies polydipsia 9. 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 Urinary retention, likely sequella of acute pontine stroke - Voiding ok. urology on board Consultants: cardiovascular surgery, hospitalist , neurology DVT PPX: warfarin Continue rehab. 01/01 pt is doing well, no chest pain No SOB, left side weakness much better 01/03 Pt is doing well, not in distress INR is therapeutic Continue Rehab ossible DC soon 01/04 Pt is doing well Saturday DC anticipated Med rec done INR therapeutic 01/05/2022: continue current treatment Adviced pt to follow up with PCP for INR closely check INR weekly with PCP D/W PT RN Pt Electronically Signed by Chip Cruz MD on at 2201 RPT #:[id number] END OF REPORT 2022-01-05 14:20:00-00:00 [id number] [address] PATIENT NAME: GARCÍA MARRERO ADMIT DATE: 11/18 ACCOUNT NO: [id number] ROOM NO: [facility] AGE: 66 REPORT TYPE: PROGRESS NOTE SEX: M ADMITTING PHYSICIAN:Mp Mendez MD ATTENDING PHYSICIAN:Mp Mendez MD DATE: 01/05/2022 Mr. Marrero is seen on 01/05/2022 for rehabilitati on direction and discharge arrangements following an ac [place] episode of left hemiplegia which occurred within 48 hours following quadruple aortocoronary artery bypass surgery and concomitant aortic bioprosthetic valve replacement on 2021. The patient had been found to have multivessel obstructive coronary a rtery disease on left heart catheterization as an outpatient and was electiv enrrique admitted to undergo the bypass procedure and an aort ic valve replacement for aortic stenosis at the same time. Following the surgery, he was mobilized an d was noted to be leaning towards the left side and had rapid prog ression of left-sided weakness to left hemiplegia and was seen by Neurology who obtaine d a CT of the brain which demonstrated no ischemic lesions or hemorrhage. He had repeat CT which was negative and an MRI was not considered appropria te given his recent bioprosthetic valve replacem ent and so the exact etiology of his left hemiplegia was unknown. The patient then showed exc ellent return of motor function in the left side and now has a mild left-sided weakness and he has been able to participate in his rehabilitation program and pr ogressed significantly with household mobility and activities of daily livin g, so that he is now safe to return to his premorbid living situation at home with his who also has health issues and because of the patient's size, she cannot provide physical assistance to any degree. The patient himself figueroa s reached independence with feeding and oral hygiene, thayer pervision with toilet hygiene and toilet transfers, supervision with bathing, independence w ith upper body dressing and setup with lower body dressing and footwear. He is basically at supervision level for all household mobility including bed mobilit y, transfers and ambulation. I suspect that he is closer to independence using the roll ing walker with all the household mobility now. He is ready for discharg e home tomorrow and he will follow up with his tutoring manager, Dr. Shahid choe and his cardiovascular surgeon, Dr. Wil Aragon for posto perative management and supervision of oral anticoagulation therapy. The patient's INR this morning was 2.0 with a prothrombin time of 22.6 seconds. The patient is on warfarin 8 mg in the evening at the present time. The patient also figueroa d electrolytes done this morning and these were essentially unremarkable. The patient's diabetes is under satisfactory control. His renal function i s within normal limits as is his serum calcium. The patient will continue with his present rehab ilitation program until he is discharged home tomorrow. Dictated By: Mp Mendez MD PATIENT NAME: GARCÍA MARRERO [id number] Date Dictated: 01/05/2022 14:20:46 Date Transcribed: 01/05/2022 14:45:43 MELLY/ANASTACIO Receipt ID: [id number] Authenticated by Mp Mendez MD On 03:29:15 PM Electronically Signed by Mp Mendez MD on at 0329 PATIENT NAME: GARCÍA MARRERO [id number] 2022-01-04 14:39:00-00:00 [id number] [place] [address] PATIENT NAME: GARCÍA MARRERO ADMIT DATE: 11/17 04/08 ACCOUNT NO: [id number] ROOM NO: Z.SI02 AGE: 66 REPORT TYPE: DISCHARGE SUMMARY REPORT SEX: M ADMITTING PHYSICIAN:Wil Aragon MD ATTENDING PHYSICIAN:Wil Aragon MD ADMISSION DATE: 12/06/2021 12:01:00 DISCHARGE DATE: 12/15/2021 18:30:00 DISCHARGE DIAGNOSES: 1. Acute left hemiplegia of uncertain etiology. 2. Pituitary macroadenoma. 3. Status post recent quadruple aortocoronary ar kate bypass graft surgery for severe multivessel obstructive coronary artery d isease. 4. Status post aortic valve bioprosthetic replac ement for severe aortic stenosis. 5. Diabetes mellitus type 2, under control. 6. Hypertension, controlled. 7. Hyperlipidemia. 8. Polydipsia and polyuria, likely secondary to diabetes insipidus. 9. Recent development of hyponatremia, stable. REASON FOR ADMISSION: This 66-year-old male was admitted for comprehensive inpatient rehabilitation for an acute left hemip legia of uncertain etiology. Shortly following quadruple aortocoronary artery bypass graft surgery and aortic valve replacement with a bio prosthesis performed on 12/06/2021 at this hospital. LABORATORY DATA AND CONSULTATIONS: This patient was followed medically by Dr. Jhon Villegas of Nephrology for his diabetes insi pidus and also by Dr. Luke Ruiz for urinary retention, which calvin ntually resolved. The patient was also seen by [facility] for medical management and followed by his cardiovascular surgeon, Dr. Wil Aragon for p ostoperative management. HOSPITAL COURSE: The patient had persist ence of his acute urinary retention on admission to the rehabilitation unit, but eventu ally responded to bladder training and a trial of void ing, which was successful before discharge resulting in permanent removal of his indwelling b ladder catheter. The patient otherwise was able to participate in his rehabilitation pr ogram on a consistent daily basis and sustained no major medical complicatio ns, which prevented his full participation in the rehabilitation program. REHABILITATION PROGRAM: The patient was placed i n a comprehensive inpatient rehabilitation program including occupat ional therapy and physical therapy and he made good gains in all areas of functioning, so that essentially he had achieved supervision for all bed mobility, transfers and ambulation and also for all basic and advanced activities of daily livin g. DISPOSITION: The patient was discharged back to his premorbid living situation PATIENT NAME: GARCÍA MARRERO [id number] in his own home with his abl e bodied spouse. He will follow up with Dr. Aragon and Dr. Jensen as directed. DISCHARGE MEDICATIONS: Listed on the dis charge medication reconciliation form. He will have home health, occupational t herapy and physical therapy along with visiting nurse and home health aide. Dictated By: Mp Mendez MD Date Dictated: 01/04/2022 14:39:39 Date Transcribed: 01/05/2022 02:17:30 MELLY/LALIT Receipt ID: [id number] Authenticated by Mp Mendez MD On 03:28:48 PM Electronically Signed by Mp Mendez MD on at 0328 PATIENT NAME: GARCÍA MARRERO ACCOUNT #: [id number] 2022-01-04 14:34:00-00:00 [id number] PATIENT NAME: GARCÍA MARRERO ADMIT DATE: 11/18 ACCOUNT NO: [id number] ROOM NO: [facility] AGE: 66 REPORT TYPE: PROGRESS NOTE SEX: M ADMITTING PHYSICIAN:Mp Mendez MD ATTENDING PHYSICIAN:Mp Mendez MD DATE: 01/04/2022 Mr. Marrero is seen on 01/04/2022 for reha bilitation direction and for discharge interdisciplinary team confreena sánchez to be documented elsewhere following an acute left hemiplegia of uncertain etiology, which occurred within 48 hours following a quadruple aortocoronary ar kate bypass graft procedure with concomitant aortic valve bioprosthetic replacement on 12/06/2021 at this hospital. The patient developed progressively wors ening left hemiplegia over several hours eventuating in essentially a complete left hemiplegia. CT of the brain showed no ischemic lesions or other abnormalities. The patient had a neurology consult, who recommended a brain MRI, but it could not be don e because of his recent bioprosthetic implant. The patient was followed by cardiology as well and he did fine, experiencing good neurological recover y of the left upper and lower extremities, which were showing voluntary moveme nt when he was discharged to this inpatient rehabilitation facility on 2021. His motor function has continued to improve during his rehabilitation s kim. The patient's hospital stay was extended last week until 2021 and the patient has made good use of the time and has improved mobility and self-c are independence since then. Medically, the patient is doing well. He is on l tanya-term oral anticoagulation with warfarin and his INR to day is therapeutic at 2.7 with a prothrombin time of 31.1 seconds. His diabetes is under sati sfactory control. The patient was seen by physical therapy romulo venegas for a team conference today and he has made great improvements in rehabilitation. He has g one forward in gait dynamics, balance, coordination, and endurance. He is now able to p ick up objects from the floor with supervision. He can maintain balance when i n challenging positions and also can maintain balance wi thout upper extremity reliance for about 20 seconds. He still requires verbal cues for safety awaren ess as he is impulsive. [facility] his discharge. In occupational therapy, the patient is currently independent with feeding and oral hygiene and he has progressed f rom total assist to minimal assist. He has gone from total assist to set up with upper body dressing and has progressed from total assist to minimal assi st with lower body dressing. The patient was total assist with footwear on ad mission and he is now set up assistance. He will continue with his pr esent rehabilitation program until his discharge in 2 days. He will be going back home with his and will continue with occupational therapy an d physical therapy through home health as well as be monitored by visiting nurse who will coordinate medical management with his primary care physician and other special ists who will follow him. He will also receive services with a home health aide. Dictated By: Mp Mendez MD PATIENT NAME: GARCÍA MARRERO [id number] Date Dictated: 01/04/2022 14:34:53 Date Transcribed: 01/04/2022 17:11:29 MELLY/TIMOTEO Receipt ID: [id number] Authenticated by Mp Mendez MD On 03:29:11 PM Electronically Signed by Mp Mendez MD on at 0329 PATIENT NAME: GARCÍA MARRERO [id number] 2022-01-04 14:07:00-00:00 [id number] [place] [address] PATIENT NAME: GARCÍA MARRERO ADMIT DATE: 11/18 ACCOUNT NO: [id number] ROOM NO: [facility] AGE: 66 REPORT TYPE: PROGRESS NOTE SEX: M ADMITTING PHYSICIAN:Mp Mendez MD ATTENDING PHYSICIAN:Mp Mendez MD DATE: 01/04/2022 SUBJECTIVE: The patient was seen and examined, r esting comfortably, no significant changes. No issues with naus ea, vomiting, fever, chills, shortness of breath, or headache. He is sitting at the bed side. He states his expected date of discharge is Saturday. He has no nausea, vomiting, fevers, chills, headache. REVIEW OF SYSTEMS: Otherwise, negative on a 12-p oint scale. OBJECTIVE: VITAL SIGNS: Temperature 97.7, blood pressure 15 1/92, pulse is 71. HEAD AND FACE: Normal. NECK: No masses. CHEST: Symmetric chest wall. ABDOMEN: Moderately obese. EXTREMITIES: Some fullness present. NEUROLOGIC: Awake, alert, conversive. LABORATORY DATA: Labs, no new labs. IMPRESSION: 1. Pituitary microadenoma. 2. Polydipsia. 3. Polyuria. 4. Possibly ____ of partial central diabetes ins ipidus. 5. Cerebrovascular accident. 6. Status post coronary artery bypass graft. PLAN: At this time, the patient is doing well. H e is compensated. I counseled the patient on reminding him on the impo rtance of following with Endocrine and Neurosurgery as an outpatient. Dictated By: Jhon Villegas MD Date Dictated: 01/04/2022 14:07:45 Date Transcribed: 01/04/2022 16:54:40 RP/BRANNON/DUNG PATIENT NAME: GARCÍA MARRERO ACCOUNT #: [id number] Receipt ID: [id number] Authenticated by Jhon Villegas MD On 01/11/2022 12:43:16 PM Electronically Signed by Jhon Villegas MD on at 1243 PATIENT NAME: GARCÍA MARRERO [id number] 2022-01-04 09:18:00-00:00 [facility] ([facility] Hospitalist Progress Note REPORT#:[id number] REPORT STATUS: Signed DATE:01/04/22 TIME: 917 PATIENT: GARCÍA MARRERO UNIT #: [id number] ROOM/BED: [address] : [address] AGE: 66 SEX: M ATTEND: Royal Mendez MD ADM AUTHOR: Petra Schmitt MD * ALL edits or amendments must be made on the [employer]/computer document * Subjective Chief complaint: s/p CABG and AVR HPI: seen in rehab doing well, no chest pain, ,plan S at Dc On coumadin Review of Systems Constitutional: Denies: chills, generalized weakness. Respiratory: Denies: PHELPS (dyspnea on exertion). Cardiovascular: Denies: chest pain, orthopnea. GI: Denies: abdominal pain, hematochezia, hiatal her aric. All systems rev neg: except as marked Objective General VS/I O: Vital Signs: Date Time Temp Pulse Resp B/P B/P Pulse O2 O2 Flow FiO2 Mean Ox Delivery Rate 01/05 728 97.7 71 18 151/92 111.4 99 Room air 01/04 0508 97.7 55 15 150/75 100.4 98 Room air 01/03 1957 97.9 65 16 125/70 88.2 100 Room air 01/03 1741 98.8 69 16 123/80 94.6 100 Room air 24 hour I O ending at 0700: 01/04 0700 01/03 1900 Intake Total 480 360 Output Total Balance 480 360 Intake, Oral 480 360 Intake, Oral 0 Supplement Number 0 Bowel Movements Number 0 Incontinent Voids Number Voids 4 PATIENT WEIGHT: Weight (lb): 277 Weight (oz): 1.94 Weight (kg): 125.700 Medications: Active Meds + DC'd Last 24 Hrs Warfarin Sodium (COUMADIN) 8 MG QPM PO (CKD) Amlodipine Besylate (NORVASC TAB) 2.5 MG DAILY P O Miscellaneous Information (WARFARIN PHARMACY TO DOSE) 1 EACH ASDIR PO ( CKD) Zolpidem Tartrate (AMBIEN (C-IV)) 5 MG BEDTIME P RN PRN PO Melatonin (MELATONIN) 3 MG BEDTIME PO Lisinopril (PRINIVIL) 20 MG DAILY PO Insulin Glargine (Lantus/Semglee) 30 UNITS BEDTI ME SUBQ Lidocaine HCl (Glydo 2% JELLY) 1 APPLIC 5XDAY TO PICAL Insulin Human Lispro (HumaLOG) MEDIUM DOSE SLIDI NG SCALE AC HS SUBQ Clopidogrel Bisulfate (PLAVIX) 75 MG DAILY PO Levothyroxine Sodium (Synthroid) 125 MCG DAILY P O Gwahc-2-Tskv Ethyl Esters (LOVAZA) 1 GM DAILY PO (CKD) Aspirin (ASPIRIN EC) 81 MG BEDTIME PO Atorvastatin Calcium (LIPITOR) 80 MG BEDTIME PO Carvedilol (COREG) 6.25 MG Q12HR PO Docusate Sodium (COLACE) 100 MG BID PO Famotidine (PEPCID) 20 MG BID PO Fenofibrate (TRICOR) 108 MG BEDTIME PO Ondansetron HCl (ZOFRAN ODT) 4 MG Q6H PRN PRN PO Acetaminophen (TYLENOL) 650 MG Q4H PRN PRN PO Dextrose/Water (DEXTROSE 50% IN WATER) 12.5 GM A SDIR PRN IV Dextrose/Water (DEXTROSE 50% IN WATER) 25 GM ASD IR PRN IV Hydrocodone Bitart/Acetaminophen (NORCO 5/325 TA BLET (C-II)) 1 TAB Q6H PRN PRN PO Bisacodyl (DULCOLAX) 5 MG BID PRN PRN PO Bisacodyl (BISACODYL SUPP) 10 MG DAILY PRN PRN R ECTAL Docusate Sodium (COLACE) 100 MG BID PRN PRN PO Magnesium Hydroxide (MILK OF MAGNESIA) 30 ML MICHA LY PRN PRN PO Physical Exam General appearance: obese, alert, awake, oriente d Head/Eyes: atraumatic, normal eyelids/periorb., normocephalic ENT: normal dentition, normal ear left, normal e ar right, normal nose Neck: supple/no meningismus, no masses or swelli ng Cardiovascular: normal heart sounds, regular rat e rhythm, sternotomy wound clean and dried without discharge Respiratory: clear to auscultation, no distress Abdomen: non-tender, normal bowel sounds , soft, no distention, no guarding, no mass/organomegaly, no rebound Genitourinary: no urinary catheter Rectal: not indicated Extremities: no edema, not able to raise LLE Musculoskeletal: no muscle spasm Neuro/CUTTER WOOD[employer] REEDS: alert, oriented X 3, mild left leg weakness, but able to lift off bed against gravity. Motor strength much improved. Considered stroke alert: yes Skin: dry, normal temperature Wound/incision: Location: legs and chest incision ok Psychiatry: normal affect, normal judgment/insig ht, normal mood Results Findings/Data: Laboratory Tests 01/04 01/04 01/03 01/03 1130 0752 1956 1737 Chemistry POC Glucose (60 - 99 MG/DL) 102 H 93 143 H 86 Laboratory Tests 01/04 0426 Coagulation INR (0.86 - 1.14) 2.7 H PT Patient/Control Mix (9.4 - 12.7 SECONDS) 31. 1 H Diagnosis, Assessment Plan Problem List/A P: 1. S/P AVR (aortic valve replacement) 2. S/P CABG x 4 3. Right pontine stroke 4. Acute left-sided weakness 5. Diabetes insipidus 6. HTN (hypertension), benign 7. DM2 (diabetes mellitus, type 2) 8. Thoracic aortic aneurysm, without rupture 9. Hyponatremia Free Text DxA P Notes Free text DxA P notes: 1. S/P AVR (aortic valve replacement) Post-op pain controlled. Anticoagulation with w arfarin 10 mg QPM. INR 1.9 goal INR 2-3 2. S/P CABG x 4 Continue current meds. CVS following. Sternotom y wound dried and clean 3. 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 DM2 (diabetes mellitus, type 2) Continue Lantus 30u HS, and MDSSI. D/c glipizide to reduce risk of hypoglycemia 6. HTN (hypertension), benign - episode of hypotension, continue coreg and li sinopril. bp elevated. resume low dose norvasc 7. Thoracic aortic aneurysm, without rupture - stable TAA at 4.5 cm 8. Diabetes insipidus DDAVP nasal spray discontin ued last 4 days, pt on fluid restriction but denies polydipsia 9. 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 Urinary retention, likely sequella of acute pontine stroke - Voiding ok. urology on board Consultants: cardiovascular surgery, hospitalist , neurology DVT PPX: warfarin Continue rehab. 01/01 pt is doing well, no chest pain No SOB, left side weakness much better 01/03 Pt is doing well, not in distress INR is therapeutic Continue Rehab ossible DC soon 01/04 Pt is doing well Saturday DC anticipated Med rec done INR therapeutic Quality: Gen Med Crit Care VTE Prophylaxis VTE prophylaxis initiated: yes Current Medications Current medication review: I attest that the foregoing medication list in t he medical record is true, accurate, and complete to the best of my knowled ge. Advanced Care Plan 65 or Older Discussed with: patient (full code) Discussion included: code status (full code) Electronically Signed by Petra Schmitt MD on at 2332 RPT #:[id number] END OF REPORT 2022-01-03 12:19:00-00:00 [facility] ([facility]) Rehab Team Conference REPORT#:[id number] REPORT STATUS: Signed DATE:01/03/22 TIME: 1218 PATIENT: GARCÍA MARRERO UNIT #: [id number] ROOM/BED: [address] : 55 AGE: 66 SEX: M ATTEND: Royal Mendez MD ADM AUTHOR: Mp Mendez MD * ALL edits or amendments must be made on the [employer]/computer document * Rehabilitation Team Conference Weekly Team Conference Team conf information: Date of conference: 01/04/22 Conference type: Discharge Conference scribe: ALBA ELLIS OT INTERDISCIPLINARY TEAM MEETING PARTICIPANTS: TITLE NAME MD JOESPH Machuca RN PT Constance Stark, PT OT ALBA ELLIS, OT CM/SW Shereen Randolph RN ST NO ATTENDEE [facility] Conrado Coronado RN Staff (8) Cirilo Tolentino PT Staff (9) NO ATTENDEE OTHER NAME CREDENTIALS 1 JOVON MORENO DPT 2 JUSTO PUENTES PHD FUNCTIONAL CHANGE: TYPE ADMISSION TOTAL INTERIM TOTAL CHANGE Self care 11 30 19 Transfer 8 28 20 Mobility 8 23 15 Wheelchair distance: 150ft Mobility description: pt ambulates w/ decreased gait speed BOWEL AND BLADDER STATUS: Bowel continence admission rating: Bladder continence admission rating: Bowel and bladder team conference update: CONTIN ENT INTERDISCIPLINARY TEAM UPDATES: CAROLYN team conference update: PT HAS BEEN PARTICIPATING IN REHAB. HE IS ALERT AND FULLY ORIENTED. HE DENIES PAIN. HE IS CONTINENT OF BOWEL AND BLADDER. HE HAS HISTORY OF DM2, HE IS ON ACC UCHECK ACHS.CURRENTLY, BETADINE AND ISLAND DRESSING ARE BEING APPLIED TO INCISIO N ON HIS CHEST, UPPER ABDOMEN AND RIGHT LEG. HE EATS AND SLEEPS WELL. HE HAS PRESENTLY REACHED SET UP FOR FEETING AND TRANSFER. PT team conference update: Pt is making great im provement in rehab. Pt has improved gait dynamics, balance/coordina tion, and endurance. Pt is now able to roll picker objects from floor w/ SPV. Pt can mainta in balance when in challengin positions. Pt also can maintain balance w/o UE f or 20 secs. However, pt still rewuires verbal cues for safety awareness. Pt wo uld benefit from continued skilled IP PT treatment sessions to further impr ove gait dynamics, balance/ coordination, and cardiovasular endurance in ord er to progress functional mobility. OT team conference update: THE PATIENT C URRENTLY IS INDEP WITH EATING AND ORAL CARE. THE PT HAS PROGRESSED FROM DEP A R Q'D WITH BATHING TO MIN A. UE DRESSING HAS IMPROVED TO SETUP FROM D EP A AT ADMISSION. THE PT HAS ALSO PROGRESSED TO MIN A WITH LE DRESSING FROM DEP A, AND SETUP ASSIST WITH FOOTWEAR, FROM DEP A AT ADMISSION. THE PATIENT IS MOTIVATED WITH [facility] SUPPORT. THE PATIENT WILL CONTINUE TO BENEFIT FROM INTENSIVE OT SRVCS TO MAXIMIZE IMPROVEMENT WITH STRENGTH, ENDURANCE, PROBLEM SOLVING SKILLS, CAREGIVER TRAINING, FALL PREVENTION , BALANCE AND ACTIVITY TOLERANCE. ST team conference update: P t is on an easy to chew diet and tolerating well. Pt will be assessed to upgrade to a regular diet. O ral motor/speech: Mild oral facial weakness persists. Pt declined shaving fo r vital stim/NMES. Pt will be taught oral facial exs for i ndependent practice/home program. Speech is slightly imprecise but 100% intelligi bile and functional for independent communication of wants/needs/ideas. Pt presen ts with mild cognitive deficits including mild left side neglect, mild inattention/distractibility, mild decreased reasoning/ insight. Pt has decreased motivation to particip ate in s.t. activities due to denial of deficits. Pt reports that the pt is near PLOF for cognitive communication skills. ST will cont to follow for education, training and independent practice activities for 1-3 more ses sions. CM or SW team conference update: LIVES W ITH SPOUSE IN A SINGLE STORY HOUSE, HH PENDING, DME DELIVERED TODAY 01-04-2022 Other discipline update 1: Other discipline update 2: Other discipline update 3: REHAB DC GOALS: Patient's identified dischar ge goal: PT REGAIN BACK THE STRENGHT AND ABLE TO DO THE ADL,S,HAVING CONTINENCY OF BOWEL AND BLADDER ,HAS HEALING WOUNDS WITH CONTROLLED PAIN. PT: "Right now, all I want to d o is to be able to get up, walk to the toilet and use the bathroom. " OT: "I WANT TO BE ABLE TO GET UP AND GET TO THE TOILET." ST: TO GET BETTER AND GO GENESIS E. Eating discharge goal: Independent (6) Shower/bathe self discharge goal: Partial/moder ate asst (3) Upper body dressing discharge goal: Partial/mod erate asst (3) Lower body dressing discharge goal: Partial/mod erate asst (3) Chair/bed to chair transfer discharge goal: Par tial/moderate asst (3) Transfer on/off toilet or commode discharge goa l: Setup/clean-up only (5) Walking 50 feet with two turns discharge goal: Partial/moderate asst (3) Walking 150 feet discharge goal: Partial/modera te asst (3) Four steps discharge goal: Not applicable Twelve steps discharge goal: Not applicable [place] 150 feet discharge goal: Partial/moder ate asst (3) Goal 1 - Bowel function: DEV L HAVE NORMAL BOWEL CONTINENCY BY ENCOURAGING TO USE THE TOILET Goal 2 - Bladder function: W ILL HAVE NORMAL BLADDER CONTINENCY BY ENCOURAGING TO USE THE TOILET Nursing goal 3: WILL REGAIN THE STRENGHT BY ENCO URAGING THE PATIENT TO PARTICIPATE IN DAILY PT AND OT SERVICES Nursing goal 4: WILL PREVENT PAIN BY GIVING THE PRN PAIN MEDS Nursing goal 5: WILL PREVENT FALL BY OBSERVING F ALL PRECAUTIONS DISCHARGE PLANNING: Barriers to discharge: Fall risk, Endurance, Genesis e setting Strategies for D/C barriers: Evaluate sleep rodney erns, Fall recovery training, Home evaluation, Scheduled rest breaks Estimated length of stay in days: 22 Anticipated discharge date: 01/06/22 Discharge date adjustment comment: Identified financial and/or community resource needs: HOME HEALTH SERVICES, DME Family/Caregiver training days: ONGOING TRAINING [place] day (DATE): 01/05/22 Expected discharge destination: Home Anticipated services upon discharge: Home health , Nurses aide, Nursing, Occupational therapy, Physical therapy Anticipated discharge equipment: Gait belt, Reac her, Sock aid, Shower chair, Bedside commode, Grab bars, Hand held shower hea d, W/C, HOSPITAL BED Impairment group: brain dysfunction NOTE Document ONLY ONE Impairment Group Brain dysfunction: nontraumatic Etiologic diagnosis: LEFT HEMIPLEGIA OF UNKNOWN ETIOLOGY Review of comorbidities: DM, HBP, HLP, HYPOTHYROIDISM, AND VITAMIN B-12 DEFICIENCY Review/Recommendations Attestation: This interdisciplinary team conference was led marisa del castillo and I concur with all decisions made during the team conference and re visions to the individualized overall plan of care. IRF cont stay criteria READY FOR DISCHARGE HOME ON 01/06/2022 Electronically Signed by Mp Mendez MD on at 1330 RPT #:[id number] END OF REPORT 2022-01-03 12:17:00-00:00 [id number] [address] PATIENT NAME: GARCÍA MARRERO ADMIT DATE: 11/18 ACCOUNT NO: [id number] ROOM NO: Z.318 AGE: 66 REPORT TYPE: PROGRESS NOTE SEX: M ADMITTING PHYSICIAN:Mp Mendez MD ATTENDING PHYSICIAN:Mp Mendez MD DATE: 01/03/2022 Mr. Marrero is seen on 022 for rehabilitation direction following an acute left hemiplegia, of uncertain etiology, which occurred within 48 hours after a quadruple aortocoronary artery bypass graft proc edure with concomitant aortic valve bioprosthetic replacement on 12/06/2021 at this hospital. The patient developed progressive left hemiplegia over sever al hours and was exhibiting almost complete left hemiplegia eventual ly. CT of the brain showed no ischemic lesions or other abnormalities and an MRI of the brain was ruled out by the patient's cardiovascular surgeon. The patient wa s evaluated by Neurology, who thought that he might have a small pontine infarction to explain his neurologic deficits. The patient did we ll; however, with good neurological recovery of the left upper and lower extremities and since his a dmission to the inpatient rehabilitation unit on 12/15/2021, he has contin ued to progress encouragingly both mobility and self-care. The patient's hospital stay was extended last week to give him more time to ach ieve greater independence in household mobility and activities of daily living, so that his felt comfortable taking him home. The patient's vital signs today are all stable basically within normal limits. Nursing reports no significant problems. The patient continues to be monitored closely for his anticoagulation. His prothrombin time yesterday was 28.0 seconds with an INR of 2.4 a nd apparently the INR today is ordered, but has not been completed yet. The patient is being seen daily by occupational therapy and physical therapy. The patient still needs supe rvision with toileting hygiene and toilet transfers yesterday with physical therapy. The patient con tinued to show improvement in balance, coordination, which was evidenced by hi s ambulating on challenging surfaces and performing safely while benji igating an obstacle course. He did not require extensive verbal cue ing either. The patient performed bed mobility in a bed that was adjusted to at home level and he continued to benefit from further physical therapy. The patient was participating in his treatment sessions showing improved gait dynamics, balance and coor dination as well as improved bilateral lower extremity strength. The patient is presently scheduled for discharge home on 01/06/2022, at which time he w ill receive home health, occupational therapy and phy sical therapy as well as a visiting nurse to monitor his medical condition and re port to his primary tutoring manager and/or primary care physician as indicated. Also , home health aide will provide assistance with any activities of daily living to provide respite fo r his . Dictated By: Mp Mendez MD Date Dictated: 01/03/2022 12:17:55 PATIENT NAME: GARCÍA MARRERO [id number] Date Transcribed: 01/03/2022 12:29:14 [facility] Receipt ID: [id number] Authenticated by Mp Mendez MD On 08:49:20 PM Electronically Signed by Mp Mendez MD on at 0849 PATIENT NAME: GARCÍA MARRERO [id number] 2022-01-03 09:10:00-00:00 [facility] ([facility] Hospitalist Progress Note REPORT#:[id number] REPORT STATUS: Signed DATE:01/03/22 TIME: 909 PATIENT: GARCÍA MARRERO UNIT #: [id number] [facility] AGE: 66 SEX: M ATTEND: Xavi Mendez MD ADM AUTHOR: Petra Schmitt MD * ALL edits or amendments must be made on the [employer]/computer document * Subjective Chief complaint: s/p CABG and AVR HPI: seen in rehab doing well, no chest pain at bedside Review of Systems Constitutional: Denies: fatigue, malaise. Respiratory: Denies: PHELPS (dyspnea on exertion), pleurisy, pne umonia. Cardiovascular: Denies: PHELPS (dyspnea on exertion), palpitations. All systems rev neg: except as marked Objective General VS/I O: Vital Signs: Date Time Temp Pulse Resp B/P B/P Pulse O2 O2 F low FiO2 Mean Ox Delivery Rate 01/04 0728 97.7 71 18 151/92 111.4 99 Room air 01/04 0508 97.7 55 15 150/75 100.4 98 Room air 01/03 1957 97.9 65 16 125/70 88.2 100 Room air 01/03 1741 98.8 69 16 123/80 94.6 100 Room air 01/03 0921 97.7 70 16 136/77 96.7 99 Room air 24 hour I O ending at 0700: 01/04 0700 01/03 1900 Intake Total 480 360 Output Total Balance 480 360 Intake, Oral 480 360 Intake, Oral 0 Supplement Number 0 Bowel Movements Number 0 Incontinent Voids Number Voids 4 PATIENT WEIGHT: Weight (lb): 277 Weight (oz): 1.94 Weight (kg): 125.700 Medications: Active Meds + DC'd Last 24 Hrs Amlodipine Besylate (NORVASC TAB) 2.5 MG DAILY P O Warfarin Sodium (COUMADIN) 8 MG QPM PO (DC) Miscellaneous Information (WARFARIN PHARMACY TO DOSE) 1 EACH ASDIR PO ( CKD) Zolpidem Tartrate (AMBIEN (C-IV)) 5 MG BEDTIME P RN PRN PO Melatonin (MELATONIN) 3 MG BEDTIME PO Lisinopril (PRINIVIL) 20 MG DAILY PO Insulin Glargine (Lantus/Semglee) 30 UNITS BEDTI ME SUBQ Lidocaine HCl (Glydo 2% JELLY) 1 APPLIC 5XDAY TO PICAL Insulin Human Lispro (HumaLOG) MEDIUM DOSE SLIDI NG SCALE AC HS SUBQ Clopidogrel Bisulfate (PLAVIX) 75 MG DAILY PO Levothyroxine Sodium (Synthroid) 125 MCG DAILY P O Qvsre-7-Zxoa Ethyl Esters (LOVAZA) 1 GM DAILY PO (CKD) Aspirin (ASPIRIN EC) 81 MG BEDTIME PO Atorvastatin Calcium (LIPITOR) 80 MG BEDTIME PO Carvedilol (COREG) 6.25 MG Q12HR PO Docusate Sodium (COLACE) 100 MG BID PO Famotidine (PEPCID) 20 MG BID PO Fenofibrate (TRICOR) 108 MG BEDTIME PO Ondansetron HCl (ZOFRAN ODT) 4 MG Q6H PRN PRN PO Acetaminophen (TYLENOL) 650 MG Q4H PRN PRN PO Dextrose/Water (DEXTROSE 50% IN WATER) 12.5 GM A SDIR PRN IV Dextrose/Water (DEXTROSE 50% IN WATER) 25 GM ASD IR PRN IV Hydrocodone Bitart/Acetaminophen (NORCO 5/325 TA BLET (C-II)) 1 TAB Q6H PRN PRN PO Bisacodyl (DULCOLAX) 5 MG BID PRN PRN PO Bisacodyl (BISACODYL SUPP) 10 MG DAILY PRN PRN R ECTAL Docusate Sodium (COLACE) 100 MG BID PRN PRN PO Magnesium Hydroxide (MILK OF MAGNESIA) 30 ML MICHA LY PRN PRN PO Physical Exam General appearance: alert, awake, oriented Head/Eyes: atraumatic, normal eyelids/periorb., normocephalic ENT: normal dentition, normal ear left, normal e ar right, normal nose Neck: supple/no meningismus, no masses or swelli ng Cardiovascular: normal heart sounds, regular rat e rhythm, sternotomy wound clean and dried without discharge Respiratory: clear to auscultation, no distress Abdomen: non-tender, normal bowel sounds , soft, no distention, no guarding, no mass/organomegaly, no rebound Genitourinary: no urinary catheter Rectal: not indicated Extremities: no edema, not able to raise LLE Musculoskeletal: no muscle spasm Neuro/C[employer] REEDS: alert, oriented X 3, mild left leg weakness, but able to lift off bed against gravity. Motor strength much improved. Considered stroke alert: yes Skin: dry, normal temperature Wound/incision: Location: legs and chest incision ok Psychiatry: normal affect, normal judgment/insig ht, normal mood Results Findings/Data: Laboratory Tests 01/04 01/03 01/03 01/03 0752 1956 1737 1133 Chemistry POC Glucose (60 - 99 MG/DL) 93 143 H 86 96 Laboratory Tests 01/04 01/03 0426 1141 Coagulation INR (0.86 - 1.14) 2.7 H 3.0 H PT Patient/Control Mix (9.4 - 12.7 SECONDS) 31. 1 H 35.0 H Diagnosis, Assessment Plan Problem List/A P: 1. S/P AVR (aortic valve replacement) 2. S/P CABG x 4 3. Right pontine stroke 4. Acute left-sided weakness 5. Diabetes insipidus 6. HTN (hypertension), benign 7. DM2 (diabetes mellitus, type 2) 8. Thoracic aortic aneurysm, without rupture 9. Hyponatremia Free Text DxA P Notes Free text DxA P notes: 1. S/P AVR (aortic valve replacement) Post-op pain controlled. Anticoagulation with w arfarin 10 mg QPM. INR 1.9 goal INR 2-3 2. S/P CABG x 4 Continue current meds. CVS following. Sternotom y wound dried and clean 3. 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 DM2 (diabetes mellitus, type 2) Continue Lantus 30u HS, and MDSSI. D/c glipizide to reduce risk of hypoglycemia 6. HTN (hypertension), benign - episode of hypotension, continue coreg and li sinopril. bp elevated. resume low dose norvasc 7. Thoracic aortic aneurysm, without rupture - stable TAA at 4.5 cm 8. Diabetes insipidus DDAVP nasal spray discontin ued last 4 days, pt on fluid restriction but denies polydipsia 9. 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 Urinary retention, likely sequella of acute pontine stroke - Voiding ok. urology on board Consultants: cardiovascular surgery, hospitalist , neurology DVT PPX: warfarin Continue rehab. 01/01 pt is doing well, no chest pain No SOB, left side weakness much better 01/03 Pt is doing well, not in distress INR is therapeutic Continue Rehab ossible DC soon Quality: Gen Med Crit Care VTE Prophylaxis VTE prophylaxis initiated: yes Current Medications Current medication review: I attest that the foregoing medication list in t he medical record is true, accurate, and complete to the best of my knowled ge. Advanced Care Plan 65 or Older Discussed with: patient (full code) Discussion included: code status (full code) Electronically Signed by Petra Schmitt MD on at 0918 RPT #:[id number] END OF REPORT 2022-01-02 22:16:00-00:00 2011-[address] [address] PATIENT NAME: GARCÍA MARRERO ADMIT DATE: 11/18 ACCOUNT NO: [id number] ROOM NO: Z.[facility] AGE: 66 REPORT TYPE: PROGRESS NOTE SEX: M ADMITTING PHYSICIAN:Mp Mendez MD ATTENDING PHYSICIAN:Mp Mendez MD DATE: 01/02/2022 The patient was seen this morning. SUBJECTIVE: The patient is status post CABG x4 w ith a small stroke, now in rehabilitation. The patient is able to ambulate to the restroom with minimal assistance. Denies any complaints of chest pain. REVIEW OF SYSTEMS: The patient denies fevers, fa tigue, chills. Complains of not sleeping at night because being inte rrupted. No shortness of breath. Other review of systems are negative. MEDICATIONS: As noted. PHYSICAL EXAMINATION: GENERAL: This is a 66-year-old gentleman who is awake, alert, looks comfortable. VITAL SIGNS: Temperature 36.3, blood pressure 97 /63, pulse is 68. HEENT: Pupils are round, reactive. Oropharynx pi nk. Tongue in midline. Uvula in midline. NECK: No JVD or bruit. Neck is supple. No masses . CARDIOVASCULAR: Regular rate and rhythm. ABDOMEN: Soft, nontender, obese. EXTREMITIES: No cyanosis, clubbing or edema. Inc isions are clean in the leg and the chest. MUSCULOSKELETAL: No spasms. SKIN: Skin incisions, no bleeding. CENTRAL NERVOUS SYSTEM: Awake, alert, oriented. The patient's lower extremities and upper extremities are improving. LABORATORY STUDIES: INR 2.4. WBC 8.3, hemoglobin 9.4, platelet count is 218. ASSESSMENT: The patient is with status post CABG x4 with AVR, history of coronary artery disease, his tory of pituitary mass, history of diabetes, history of hypertension, hyperlipidemia. OTHER DIAGNOSES: 1. History of stroke with acute left-sided weakn ess, improving. 2. Obesity. 3. Acute on chronic anemia. 4. Chronic renal insufficiency stage III. PATIENT NAME: GARCÍA MARRERO [id number] PLAN: Continue rehabilitation. Continue with war [employer]. Plan is to discharge the patient on Saturday. The patient is very anx ious to go home. Dictated By: Petra Schmitt MD Date Dictated: 01/02/2022 22:16:01 Date Transcribed: 01/02/2022 23:13:11 [facility] Receipt ID: [id number] Authenticated by Petra Schmitt MD On 01/04/2022 02:18:07 PM Electronically Signed by Petra Schmitt MD on at 0218 PATIENT NAME: GARCÍA MARRERO [id number] 2022-01-02 16:52:00-00:00 [facility] ([facility]) Cardiovascular Surgery Prog REPORT#:[id number] REPORT STATUS: Signed DATE:01/02/22 TIME: 1651 PATIENT: GARCÍA MARRERO UNIT #: [id number] [facility] AGE: 66 SEX: M ATTEND: Royal Mendez MD ADM AUTHOR: Irene Gonzalez * ALL edits or amendments must be made on the [employer] document * General Status post: ACB x 4 Subjective Patient reports: No: complaints. Nursing reports: No: complaints. Comments: The patient is seen at bedside, doing well He was able to ambulate outside today Review of Systems Constitutional: Denies: chills, fatigue, fever, generalized weak ness. Respiratory: Denies: SOB. Cardiovascular: Denies: chest pain. Objective General VS/I O: Last Documented: Result Date Time Pulse Ox 100 01/02 1537 B/P 97/63 01/02 1537 B/P Mean 74.3 01/02 1537 Temp 36.3 01/02 1537 Pulse 68 01/02 1537 Resp 20 01/02 1537 O2 Delivery Room air 01/01 1537 24 hour I O ending at 0700: 01/02 0700 01/01 1900 Intake Total 500 960 Output Total 700 Balance -200 960 Intake, Oral 500 960 Intake, Oral 0 Supplement Number 2 Bowel Movements Number 0 0 Incontinent Voids Number Voids 3 4 Output, Urine 700 PATIENT WEIGHT: Weight (lb): 277 Weight (oz): 1.94 Weight (kg): 125.700 Medications: Active Meds + DC'd Last 24 Hrs Amlodipine Besylate (NORVASC TAB) 2.5 MG DAILY P O Warfarin Sodium (COUMADIN) 8 MG QPM PO (CKD) Miscellaneous Information (WARFARIN PHARMACY TO DOSE) 1 EACH ASDIR PO ( CKD) Zolpidem Tartrate (AMBIEN (C-IV)) 5 MG BEDTIME P RN PRN PO Melatonin (MELATONIN) 3 MG BEDTIME PO Lisinopril (PRINIVIL) 20 MG DAILY PO Insulin Glargine (Lantus/Semglee) 30 UNITS BEDTI ME SUBQ Lidocaine HCl (Glydo 2% JELLY) 1 APPLIC 5XDAY TO PICAL Insulin Human Lispro (HumaLOG) MEDIUM DOSE SLIDI NG SCALE AC HS SUBQ Clopidogrel Bisulfate (PLAVIX) 75 MG DAILY PO Levothyroxine Sodium (Synthroid) 125 MCG DAILY P O Owrem-8-Zqyg Ethyl Esters (LOVAZA) 1 GM DAILY PO (CKD) Aspirin (ASPIRIN EC) 81 MG BEDTIME PO Atorvastatin Calcium (LIPITOR) 80 MG BEDTIME PO Carvedilol (COREG) 6.25 MG Q12HR PO Docusate Sodium (COLACE) 100 MG BID PO Famotidine (PEPCID) 20 MG BID PO Fenofibrate (TRICOR) 108 MG BEDTIME PO Ondansetron HCl (ZOFRAN ODT) 4 MG Q6H PRN PRN PO Acetaminophen (TYLENOL) 650 MG Q4H PRN PRN PO Dextrose/Water (DEXTROSE 50% IN WATER) 12.5 GM A SDIR PRN IV Dextrose/Water (DEXTROSE 50% IN WATER) 25 GM ASD IR PRN IV Hydrocodone Bitart/Acetaminophen (NORCO 5/325 TA BLET (C-II)) 1 TAB Q6H PRN PRN PO Bisacodyl (DULCOLAX) 5 MG BID PRN PRN PO Bisacodyl (BISACODYL SUPP) 10 MG DAILY PRN PRN R ECTAL Docusate Sodium (COLACE) 100 MG BID PRN PRN PO Magnesium Hydroxide (MILK OF MAGNESIA) 30 ML MICHA LY PRN PRN PO Dietitian nutrition assessment The data set between the solid lines has been im ported from the dietitian's assessment. BMI Calculated: 37.6 Nutrition related diagnosis: Obese Nutrition diagnosis details: BMI 30-39.9 Nutrition problem: INCREASED NUTRIENT NEEDS Nutrition etiology: INCREASED NUTRIENT DEMAND Nutrition signs and symptoms: PT S/P CABG Nutrition prescription: - CONT DIABETIC DIET WIT H 5 CHO/SERVING AND EASY-TO- CHEW TEXTURES - PROVIDE GLUCERNA BID TO HELP PT BETTER MEET NUTRITIONAL NEEDS Dietitian name: Fariha Aguilera, MS, RD, LDN Assessment completed: 12/18/21 Nutrition provider diagnosis: obese Review of dietitian's assessment: reviewed and a gree Physical Exam General appearance: alert, awake, oriented, no a cute distress Wound/incision: Location: median sternotomy, right lower extrem ity Site condition: dressing clean dry, incision in tact, no drainage, no erythema, Sternum is stable Neck: non-tender, no masses or swelling Cardiovascular: BP/pulses equal bilat., normal h eart sounds, regular rate rhythm Respiratory: aerating well Abdomen: soft, non-tender, normal bowel sounds, no distention Extremities: no edema 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 0 H Laboratory Tests 01/02 0410 Hematology WBC (3.8 - 9.8 K/MM3) 6.3 RBC (3.95 - 5.67 M/MM3) 3.29 L Hgb (12.4 - 16.7 G/DL) 9.4 L Hct (35.9 - 49.5 %) 29.4 L MCV (81.7 - 96.1 fL) 89 MCH (27.6 - 33.2 pg) 28.6 MCHC (32.9 - 35.5 %) 32.0 L RDW (12.1 - 15.2 %) 14.0 Plt Count (129 - 368 K/MM3) 218 MPV (7.4 - 10.4 fl) 10.0 Neut % (Auto) (43 - 75 %) 56.5 Lymph % (Auto) (14 - 44 %) 32.8 [place] % (Auto) (4 - 13 %) 8.4 Eos % (Auto) (0 - 6 %) 1.4 Baso % (Auto) (0 - 2 %) 0.6 Neut # (Auto) (2.0 - 7.6 K/mm3) 3.57 Lymph # (Auto) (1.0 - 3.8 K/mm3) 2.07 [place] # (Auto) (0.1 - 0.8 K/mm3) 0.53 Eos # (Auto) (0.0 - 0.2 K/mm3) 0.09 Baso # (Auto) (0.0 - 0.2 K/mm3) 0.04 Immature Gran % (0.0 - 2.0 %) 0.3 Nucleated RBC % (0 - 1.0 %) 0.0 Nucleated RBCs # (Man) (0.0 - 0.1 K/mm3) 0.00 Diagnosis, Assessment Plan Free Text A P: Pt. with CAD S/p ACB x 4 with AVR Pituitary mass Diabetes Hypertension Hyperlipidemia Acute left sided weakness-improved motor strength to his left lower extremity. PT/INR therapeutic PLAN: Continue with warfarin Continue with rehab for discharge on Saturday at 5600 at 0105 RPT #:[id number] END OF REPORT 2022-01-02 11:15:00-00:00 [id number] [address] PATIENT NAME: GARCÍA MARRERO ADMIT DATE: 11/18 ACCOUNT NO: [id number] ROOM NO: Z.318 AGE: 66 REPORT TYPE: PROGRESS NOTE SEX: M ADMITTING PHYSICIAN:Mp Mendez MD ATTENDING PHYSICIAN:Mp Mendez MD DATE: 01/02/2022 Mr. Marrero is seen on 022 for rehabilitation direction following an acute left hemiplegia of uncertain etiology, which occ urred within 48 hours with a quadruple aortocoronary artery bypass graft proc edure and concomitant aortic valve bioprosthetic replacement on 12/06/2021. T he patient was having difficulty being mobilized postoperatively and h e was noted to be leaning towards his left side when hand drifting. This q uickly progressed to almost complete left hemiplegia. A CT of the br ain showed no ischemic lesion or other abnormalities and the patient underwent serial brain CTs, which were negative. He was seen in consultation by neurology who not ed that the CTA of the brain showed no significant obstructive lesions or isc hemic changes. An MRI of the brain was suggested, but the cardiovascular surg mark thought it should be postponed at this point because of the patient's recent surgery and the exact etiology of the hemiplegia was undetermined. The patient continued to show improvement in motor functio n following the plateauing of the hemiplegia and he was mobilized by occupational therapy and physic al therapy and subsequently referred to the inpatient rehabilitation unit and was accepted and admitted on 12/15/2021. By this time, he was still having si gnificant problems with transfers and ambulation as well as self-care an d he was put in an intensive program of activities of daily living training a nd mobility training by occupational therapy and physical therapy respec tively. The patient did not require any speech therapy as his speech and swa llowing were fairly intact. The patient is being closely followed by his admitting hospitalist, Dr. Billy Maxwell, and his consulting yard stocker, Dr. Jhon Villegas, who was consulted for polydipsia and polyuria. 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 Dr. Villegas thinks the patient needs outpatient followup with an endocrinologis t and has made his recommendation. The patient had a CBC done today, which showed a normal white blood cell count and his hemoglobin is still on the low side at 9.4 with a platelet count of 218. His white blood cell differ ential was unremarkable. The patient is on warfarin for his bioprosthetic aortic valve and his INR is therapeutic today at 2.4. His electrolytes show mild elevation of his chloride . His blood sugars show diabetes is under satisfacto ry control and his BUN is mildly elevated at 24 and his creatinine is just below the upper limit of normal at 1.20 with a normal GFR of greater than 60. The patient has now reached independence with fe eding and oral hygiene while needing supervision with toileting hygiene and t oilet transfers. He is also PATIENT NAME: GARCÍA MARRERO [id number] requiring set up with upper body dressing and mo derate assist with lower body dressing, while needing just supervision with to ileting hygiene and toilet transfers. He is also at supervision for bed mob ility, transfers, and ambulation. He will continue with his present re habilitation program at this time. [facility] showing great improvement with his ambulation with a walker and his vital signs showed a temperature of 36.6 degrees centigrade, pulse 56, respi rations 20, blood pressure 135/88 with oxygen saturation of 98% on room air. Dictated By: Mp Mendez MD Date Dictated: 01/02/2022 11:15:45 Date Transcribed: 01/02/2022 11:41:00 MELLY/TIMOTEO Receipt ID: [id number] Authenticated by Mp Mendez MD On 08:49:18 PM Electronically Signed by Mp Mendez MD on at 0849 PATIENT NAME: GARCÍA MARRERO [id number] 2022-01-02 09:06:00-00:00 [id number] [place] [address] PATIENT NAME: GARCÍA MARRERO ADMIT DATE: 11/18 ACCOUNT NO: [id number] ROOM NO: Z.318 AGE: 66 REPORT TYPE: PROGRESS NOTE SEX: M ADMITTING PHYSICIAN:Mp Mendez MD ATTENDING PHYSICIAN:Mp Mendez MD DATE: 12/25/2021 SUBJECTIVE: The patient was seen and examined, r esting comfortably, no significant changes. No issu es of nausea, vomiting, fever, chills, shortness of breath, headache were voiced. ROS: Othwereise negative on a 10 point scale. LABORATORY DATA: Sodium 137, potassium 4.1, BUN 25, creatinine 1.2, chloride 104, CO2 is 24. Hemoglobin 10.2, white count 8.9 . MAR was reviewed. PHYSICAL EXAMINATION: VITAL SIGNS: Temperature 97.7, pulse of 63, bloo d pressure is 154/82. HEAD AND FACE: Normal. NECK: No masses. CHEST: Symmetric chest wall. ABDOMEN: Nondistended. EXTREMITIES: No edema. NEUROLOGIC: Intact, left-sided weakness, but muc h improved. HOSPITAL COURSE: The patient is still nonadheren t, noncompliant to the fluid restrictions, counseled, conveyed. Family bringi ng an additional liquids and foods intermittently. The has been counsele d. Daughter has been counseled. IMPRESSION: 1. Microadenoma. 2. Polydipsia. 3. Polyuria. 4. Likely not nephrogenic diabetes, but central due to microadenoma. 5. Recent coronary artery bypass graft and recen t cerebrovascular accident. PLAN: 1. Continued counseling. The patient needs outp atient followup with Neurosurgery. The patient needs outpatient follo wup with Endocrine. 2. No changes otherwise. Dictated By: Jhon Villegas MD PATIENT NAME: GARCÍA MARRERO [id number] Date Dictated: 01/02/2022 09:06:42 Date Transcribed: 01/02/2022 09:27:49 MARTIN/EDSON Receipt ID: [id number] Authenticated and Edited by Jhon Villegas MD On 01/03/22 11:36:27 PM Electronically Signed by Jhon Villegas MD on at 1139 PATIENT NAME: GARCÍA MARRERO [id number] 2022-01-01 20:02:00-00:00 [id number] [address] PATIENT NAME: GARCÍA MARRERO ADMIT DATE: 11/18 ACCOUNT NO: [id number] ROOM NO: [facility] AGE: 66 REPORT TYPE: PROGRESS NOTE SEX: M ADMITTING PHYSICIAN:Mp Mendez MD ATTENDING PHYSICIAN:Mp Mendez MD DATE: 01/01/2022 Chart was reviewed. Labs were reviewed. ____ par ameters were in the proper range. Vital signs were reviewed. Orders written for la bs for today. No changes noted. ____ disposition. Noted the patient needs a neur osurgery followup upon discharge. Dictated By: Jhon Villegas MD Date Dictated: 01/01/2022 20:02:17 Date Transcribed: 01/01/2022 21:36:20 /ANASTACIO/DUNG Receipt ID: [id number] Authenticated by Jhon Villegas MD On 01/03/2022 11:36:05 PM Electronically Signed by Jhon Villegas MD on at 1136 PATIENT NAME: GARCÍA MARRERO [id number] 2022-01-01 13:38:00-00:00 [id number] [place] [address] PATIENT NAME: GARCÍA MARRERO ADMIT DATE: 11/18 ACCOUNT NO: [id number] ROOM NO: Z.[facility] AGE: 66 REPORT TYPE: PROGRESS NOTE SEX: M ADMITTING PHYSICIAN:Mp Mendez MD ATTENDING PHYSICIAN:Mp Mendez MD DATE: 01/01/2022 Mr. Marrero is seen on 01/01/2022 for rehabilitati on page hospital and home health rehabilitation services assessment following an acute left hemiplegia of uncertain etiology, occurring within 48 hours of a quadruple aortocoronary artery bypass graft procedure and concomitant ao rtic valve bioprosthetic replacement performed on 12/06/2021 at [facility] by Dr. Wil Aragon. The patient initially had significant we akness on the left side, but has shown good neurological recovery since then. The crani al imaging did not show any definite ischemic areas in the brain or brainste m. The consulting neurologist thought the patient might have had a small ponti ne infarction. The patient is presently scheduled for discharge home o n 01/06/2022. The patient is presently requiring set up for upper body dressing and mod erate assist for lower body dressing. The patient did have a fall yesterday, which was unwitnessed. He reported no pain and showed no signs of distress . His vital signs were essentially within normal li mits this morning with a temperature of 36.6 degrees centigrade, pulse 74, respirations 17, h is systolic blood pressures are labile as it was up to 157/83 this morning, and oxygen saturations, however, were normal at 99% to 100% on room air. This patient is being followed closely with daily prothrombin times in order to monitor ther apeutic response to warfarin, which has been given for str girish prophylaxis because of the atrial fibrillation. Also, he had electrolytes done today, which show ed some elevation of the chloride at 110. The patient's blood sugars are generally good. His renal function was within normal limits today as was s thierry calcium. The patient was seen by physical therapy yes terday and reported preexisting bilateral knee pain. The patient was able to asc end and descend 4-inch steps using a rolling walker and he was also able to sit unsupported on the m at and perform ____. The patient's left arm was not a s functional as the right, but he completed sitting therapeutic exercises and was able to ambulate t o his room. In occupational therapy, he required minimal verbal cues for safety and had apparent transfers and ambulation. In actual activities of daily li ving, he was recently independent with feeding and oral hygiene, but s till needs set up with upper body dressing and is moderate assist for lower body dressing. It is hoped that he will continue to progress the rest of this we ek so that he is more independent at the time of his discharge home be cause his has stated she cannot be of much physical assistance for him. This patient was also seen today for home health rehabilitation services assessment and he can be considered home bound because of his impaired mobility and self-care and need for p ersonal supervision whenever he leaves the home. He will therefore benefit from home health occupati onal therapy and physical therapy to improve his independence and eventual ly moving out of physical PATIENT NAME: GARCÍA MARRERO [id number] therapy. In addition to the rehabilitation thera pies, he will benefit from a home health nurse to monitor his medical conditi on and report to his primary care physician or consulting specialists who fol low him and finally a home health aide will perform activities of daily avni ing for the patient that he cannot do himself. Dictated By: Mp Mendez MD Date Dictated: 01/01/2022 13:38:59 Date Transcribed: 01/01/2022 14:00:00 MELLY/TIMOTEO/DUNG Receipt ID: [id number] Authenticated by Mp Mendez MD On 09:33:40 AM Electronically Signed by Mp Mendez MD on at 0933 PATIENT NAME: GARCÍA MARRERO [id number] 2022-01-01 13:09:00-00:00 [facility] ([facility] Hospitalist Progress Note REPORT#:[id number] REPORT STATUS: Signed DATE:01/01/22 TIME: 1309 PATIENT: GARCÍA MARRERO UNIT #: [id number] ROOM/BED: [address] : [address] AGE: 66 SEX: M ATTEND: Royal Mendez MD ADM AUTHOR: Petra Schmitt MD * ALL edits or amendments must be made on the [employer]lex[employer]/computer document * Subjective Chief complaint: s/p CABG and AVR HPI: seen in rehab doing well, no chest pain Review of Systems Constitutional: Denies: chills, fever. Respiratory: Denies: PHELPS (dyspnea on exertion), pneumonia. Cardiovascular: Denies: chest pain, orthopnea. GI: Denies: abdominal pain, hiatal hernia, melena. Psych: Denies: agitation, suicidal ideation. All systems rev neg: except as marked Objective General VS/I O: Vital Signs: Date Time Temp Pulse Resp B/P B/P Pulse O2 O2 F low FiO2 Mean Ox Delivery Rate 01/01 1012 97.9 01/01 1008 64 16 118/71 87.0 100 Room air 01/01 0702 97.9 60 14 156/90 112.1 100 Room air 01/01 0431 97.5 74 17 157/83 107.6 99 12/31 1940 98.4 61 17 147/76 99.5 99 12/31 1537 97.7 63 20 109/67 81.3 100 24 hour I O ending at 0700: 01/01 0700 12/31 1900 Intake Total 300 Output Total 1200 Balance -900 Intake, Oral 300 Number 0 Bowel Movements Number 0 Incontinent Voids Number Voids 3 Output, Urine 1200 Patient 125.7 kg Weight Weight Bed scale Measurement Method PATIENT WEIGHT: Weight (lb): 277 Weight (oz): 1.94 Weight (kg): 125.700 Medications: Active Meds + DC'd Last 24 Hrs Warfarin Sodium (COUMADIN) 8 MG QPM PO (CKD) Amlodipine Besylate (NORVASC TAB) 5 MG DAILY PO Warfarin Sodium (COUMADIN) 10 MG QPM PO (DC) Miscellaneous Information (WARFARIN PHARMACY TO DOSE) 1 EACH ASDIR PO ( CKD) Zolpidem Tartrate (AMBIEN (C-IV)) 5 MG BEDTIME P RN PRN PO Melatonin (MELATONIN) 3 MG BEDTIME PO Lisinopril (PRINIVIL) 20 MG DAILY PO Insulin Glargine (Lantus/Semglee) 30 UNITS BEDTI ME SUBQ Lidocaine HCl (Glydo 2% JELLY) 1 APPLIC 5XDAY T OPICAL Insulin Human Lispro (HumaLOG) MEDIUM DOSE SLIDI NG SCALE AC HS SUBQ Clopidogrel Bisulfate (PLAVIX) 75 MG DAILY PO Levothyroxine Sodium (Synthroid) 125 MCG DAILY P O Ypkhq-0-Wrgu Ethyl Esters (LOVAZA) 1 GM DAILY PO (CKD) Aspirin (ASPIRIN EC) 81 MG BEDTIME PO Atorvastatin Calcium (LIPITOR) 80 MG BEDTIME PO Carvedilol (COREG) 6.25 MG Q12HR PO Docusate Sodium (COLACE) 100 MG BID PO Famotidine (PEPCID) 20 MG BID PO Fenofibrate (TRICOR) 108 MG BEDTIME PO Ondansetron HCl (ZOFRAN ODT) 4 MG Q6H PRN PRN PO Acetaminophen (TYLENOL) 650 MG Q4H PRN PRN PO Dextrose/Water (DEXTROSE 50% IN WATER) 12.5 GM A SDIR PRN IV Dextrose/Water (DEXTROSE 50% IN WATER) 25 GM ASD IR PRN IV Hydrocodone Bitart/Acetaminophen (NORCO 5/325 TA BLET (C-II)) 1 TAB Q6H PRN PRN PO Bisacodyl (DULCOLAX) 5 MG BID PRN PRN PO Bisacodyl (BISACODYL SUPP) 10 MG DAILY PRN PRN R ECTAL Docusate Sodium (COLACE) 100 MG BID PRN PRN PO Magnesium Hydroxide (MILK OF MAGNESIA) 30 ML MICHA LY PRN PRN PO Physical Exam General appearance: alert, awake, oriented Head/Eyes: atraumatic, normal eyelids/periorb., normocephalic ENT: normal dentition, normal ear left, normal e ar right, normal nose Neck: supple/no meningismus, no masses or swelli ng Cardiovascular: normal heart sounds, regular rat e rhythm, sternotomy wound clean and dried without discharge Respiratory: clear to auscultation, no distress Abdomen: non-tender, normal bowel sounds , soft, no distention, no guarding, no mass/organomegaly, no rebound Genitourinary: no urinary catheter Rectal: not indicated Extremities: no edema, not able to raise LLE Musculoskeletal: no muscle spasm Neuro/CUTTER WOODWIND REEDS: alert, oriented X 3, mild left leg weakness, but able to lift off bed against gravity. Motor strength much improved. Considered stroke alert: yes Skin: dry, normal temperature Wound/incision: Location: legs and chest incision ok Psychiatry: normal affect, normal judgment/insig ht, normal mood Results Findings/Data: Laboratory Tests 01/01 01/01 01/01 12/31 12/31 1146 0657 0327 1941 1612 Chemistry Sodium (137 - 145 MMOL/L) 141 Potassium (3.5 - 5.1 MMOL/L) 3.9 Chloride (98 - 107 MMOL/L) 110 H Carbon Dioxide (22 - 30 MMOL/L) 22 Anion Gap (14 - 24 MMOL/L) 13 L BUN (9 - 20 MG/DL) 24 H Creatinine (0.66 - 1.25 MG/DL) 1.20 Glomerular Filtr Rate > 60 Glucose (74 - 106 MG/DL) 112 H POC Glucose (60 - 99 MG/DL) 97 106 H 133 H 117 H Calcium (8.4 - 10.2 MG/DL) 8.7 Laboratory Tests 01/01 0926 Coagulation INR (0.86 - 1.14) 2.3 H PT Patient/Control Mix (9.4 - 12.7 SECONDS) 26. 3 H Diagnosis, Assessment Plan Problem List/A P: 1. S/P AVR (aortic valve replacement) 2. S/P CABG x 4 3. Right pontine stroke 4. Acute left-sided weakness 5. Diabetes insipidus 6. HTN (hypertension), benign 7. DM2 (diabetes mellitus, type 2) 8. Thoracic aortic aneurysm, without rupture 9. Hyponatremia Free Text DxA P Notes Free text DxA P notes: 1. S/P AVR (aortic valve replacement) Post-op pain controlled. Anticoagulation with w arfarin 10 mg QPM. INR 1.9 goal INR 2-3 2. S/P CABG x 4 Continue current meds. CVS following. Sternotom y wound dried and clean 3. 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 DM2 (diabetes mellitus, type 2) Continue Lantus 30u HS, and MDSSI. D/c glipizide to reduce risk of hypoglycemia 6. HTN (hypertension), benign - episode of hypotension, continue coreg and li sinopril. bp elevated. resume low dose norvasc 7. Thoracic aortic aneurysm, without rupture - stable TAA at 4.5 cm 8. Diabetes insipidus DDAVP nasal spray discontin ued last 4 days, pt on fluid restriction but denies polydipsia 9. 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 Urinary retention, likely sequella of acute pontine stroke - Voiding ok. urology on board Consultants: cardiovascular surgery, hospitalist , neurology DVT PPX: warfarin Continue rehab. 01/01 pt is doing well, no chest pain No SOB, left side weakness much better Quality: Gen Med Crit Care VTE Prophylaxis VTE prophylaxis initiated: yes Current Medications Current medication review: I attest that the foregoing medication list in t he medical record is true, accurate, and complete to the best of my knowled ge. Advanced Care Plan 65 or Older Discussed with: patient (full code) Discussion included: code status (full code) Electronically Signed by Petra Schmitt MD on at 0916 RPT #:[id number] END OF REPORT 2021-12-31 14:12:00-00:00 [facility] ([facility] Hospitalist Progress Note REPORT#:[id number] REPORT STATUS: Signed DATE:12/31/21 TIME: 1411 PATIENT: GARCÍA MARRERO UNIT #: [id number] ROOM/BED: [facility] : [facility] AGE: 66 SEX: M ATTEND: Royal Mendez MD ADM AUTHOR: Billy Maxwell MD * ALL edits or amendments must be made on the [employer]/computer document * Subjective Chief complaint: s/p CABG and AVR HPI: Pt reports better sleep last night, improved motor strength in left leg and able to exercsie more. Appetite good and hyponatremia normalized. Mina catheter yielding normal yellow ur ine. Will schedule voiding trial in AM Free Text Subj Notes Free Text Subj Notes: DENIES ANY COMPLAINT TODAY. VSS. NO ACUTE INTERV AL EVENT Review of Systems All systems rev neg: except as marked Objective General VS/I O: Vital Signs: Date Time Temp Pulse Resp B/P B/P Pulse O2 O2 F low FiO2 Mean Ox Delivery Rate 12/31 1221 36.8 67 16 126/63 84.1 100 12/31 0648 36.6 61 20 158/82 107.3 99 12/31 0417 36.3 61 18 148/83 104.3 100 Room air 12/30 1935 37.0 61 16 136/83 100.8 100 Room air 12/30 1538 36.8 59 17 133/76 94.9 99 Room air 24 hour I O ending at 0700: 12/31 0700 12/30 1900 Intake Total 300 650 Output Total 400 Balance -100 650 Intake, Oral 300 650 Intake, Oral 0 Supplement Number 0 1 Bowel Movements Number 0 0 Incontinent Voids Number Voids 2 3 Output, Urine 400 PATIENT WEIGHT: Weight (lb): 238 Weight (oz): 5.12 Weight (kg): 108.100 Medications: Active Meds + DC'd Last 24 Hrs Amlodipine Besylate (NORVASC TAB) 5 MG DAILY PO Warfarin Sodium (COUMADIN) 10 MG QPM PO (CKD) Warfarin Sodium (COUMADIN) 7.5 MG QPM PO (DC) Miscellaneous Information (WARFARIN PHARMACY TO DOSE) 1 EACH ASDIR PO ( CKD) Zolpidem Tartrate (AMBIEN (C-IV)) 5 MG BEDTIME P RN PRN PO Melatonin (MELATONIN) 3 MG BEDTIME PO Lisinopril (PRINIVIL) 20 MG DAILY PO Insulin Glargine (Lantus/Semglee) 30 UNITS BEDTI ME SUBQ Lidocaine HCl (Glydo 2% JELLY) 1 APPLIC 5XDAY TO PICAL Insulin Human Lispro (HumaLOG) MEDIUM DOSE SLIDI NG SCALE AC HS SUBQ Clopidogrel Bisulfate (PLAVIX) 75 MG DAILY PO Levothyroxine Sodium (Synthroid) 125 MCG DAILY P O Utleb-8-Kjte Ethyl Esters (LOVAZA) 1 GM DAILY P O (CKD) Aspirin (ASPIRIN EC) 81 MG BEDTIME PO Atorvastatin Calcium (LIPITOR) 80 MG BEDTIME PO Carvedilol (COREG) 6.25 MG Q12HR PO Docusate Sodium (COLACE) 100 MG BID PO Famotidine (PEPCID) 20 MG BID PO Fenofibrate (TRICOR) 108 MG BEDTIME PO Ondansetron HCl (ZOFRAN ODT) 4 MG Q6H PRN PRN P O Acetaminophen (TYLENOL) 650 MG Q4H PRN PRN PO Dextrose/Water (DEXTROSE 50% IN WATER) 12.5 GM A SDIR PRN IV Dextrose/Water (DEXTROSE 50% IN WATER) 25 GM DIR PRN IV Hydrocodone Bitart/Acetaminophen (NORCO 5/325 TA BLET (C-II)) 1 TAB Q6H PRN PRN PO Bisacodyl (DULCOLAX) 5 MG BID PRN PRN PO Bisacodyl (BISACODYL SUPP) 10 MG DAILY PRN PRN R ECTAL Docusate Sodium (COLACE) 100 MG BID PRN PRN PO Magnesium Hydroxide (MILK OF MAGNESIA) 30 ML MICHA LY PRN PRN PO Dietitian nutrition assessment The data set between the solid lines has been im ported from the dietitian's assessment. BMI Calculated: 32.3 Nutrition related diagnosis: Obese Nutrition diagnosis details: BMI 30-39.9 Nutrition problem: INCREASED NUTRIENT NEEDS Nutrition etiology: INCREASED NUTRIENT DEMAND Nutrition signs and symptoms: PT S/P CABG Nutrition prescription: - CONT DIABETIC DIET WIT H 5 CHO/SERVING AND EASY-TO- CHEW TEXTURES - PROVIDE GLUCERNA BID TO HELP PT BETTER MEET NUTRITIONAL NEEDS Dietitian name: Fariha Aguilera, MS, RD, LDN Assessment completed: 12/18/21 Physical Exam Head/Eyes: atraumatic, normal eyelids/periorb., normocephalic ENT: normal dentition, normal ear left, normal e ar right, normal nose Neck: supple/no meningismus, no masses or swelli ng Cardiovascular: normal heart sounds, regular rat e rhythm, sternotomy wound clean and dried without discharge Respiratory: clear to auscultation, no distress Abdomen: non-tender, normal bowel sounds , soft, no distention, no guarding, no mass/organomegaly, no rebound Extremities: no edema, not able to raise LLE Neuro/CUTTER WOODWIND REEDS: alert, oriented X 3, mild left leg weakness, but able to lift off bed against gravity. Motor strength much improved. Considered stroke alert: yes Skin: dry, normal temperature Psychiatry: normal affect, normal judgment/insig ht, normal mood Results Findings/Data: Laboratory Tests 12/31 12/31 12/30 12/30 1110 0649 1944 1605 Chemistry POC Glucose (60 - 99 MG/DL) 123 H 111 H 148 H 1 32 H Laboratory Tests 12/31 0836 Coagulation INR (0.86 - 1.14) 1.9 H PT Patient/Control Mix (9.4 - 12.7 SECONDS) 22. 2 H Diagnosis, Assessment Plan Problem List/A P: 1. S/P AVR (aortic valve replacement) 2. S/P CABG x 4 3. Right pontine stroke 4. Acute left-sided weakness 5. Diabetes insipidus 6. HTN (hypertension), benign 7. DM2 (diabetes mellitus, type 2) 8. Thoracic aortic aneurysm, without rupture 9. Hyponatremia Free Text DxA P Notes Free text DxA P notes: 1. S/P AVR (aortic valve replacement) Post-op pain controlled. Anticoagulation with w arfarin 10 mg QPM. INR 1.9 goal INR 2-3 2. S/P CABG x 4 Continue current meds. CVS following. Sternotom y wound dried and clean 3. 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 DM2 (diabetes mellitus, type 2) Continue Lantus 30u HS, and MDSSI. D/c glipizide to reduce risk of hypoglycemia 6. HTN (hypertension), benign - episode of hypotension, continue coreg and li sinopril. bp elevated. resume low dose norvasc 7. Thoracic aortic aneurysm, without rupture - stable TAA at 4.5 cm 8. Diabetes insipidus DDAVP nasal spray discontin ued last 4 days, pt on fluid restriction but denies polydipsia 9. 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 Urinary retention, likely sequella of acute pontine stroke - Voiding ok. urology on board Consultants: cardiovascular surgery, hospitalist , neurology DVT PPX: warfarin Continue rehab. Quality: Gen Med Crit Care VTE Prophylaxis VTE prophylaxis initiated: yes Current Medications Current medication review: I attest that the foregoing medication list in t he medical record is true, accurate, and complete to the best of my knowled ge. Advanced Care Plan 65 or Older Discussed with: patient (full code) Discussion included: code status (full code) Electronically Signed by Billy Maxwell MD on 2 at 1415 RPT #:[id number] END OF REPORT 2021-12-31 11:21:00-00:00 [id number] [place] [address] PATIENT NAME: GARCÍA MARRERO ADMIT DATE: 11/18 ACCOUNT NO: [id number] ROOM NO: [facility] AGE: 66 REPORT TYPE: PROGRESS NOTE SEX: M ADMITTING PHYSICIAN:Mp Mendez MD ATTENDING PHYSICIAN:Mp Mendez MD DATE: 12/29/2021 SUBJECTIVE: The patient was seen and examined, r esting comfortably, no significant changes. No issu es with nausea, vomiting, fevers, chills, shortness of breath, or headache. Review of systems were n egative on a 10-point scale. OBJECTIVE: VITAL SIGNS: Stable, afebrile. See EHR for detai ls. HEAD AND FACE: Normal. NECK: No masses. CHEST: Symmetric chest wall. ABDOMEN: Distended. NEUROLOGIC: Intact. CARDIOVASCULAR: Adequate cardiovascular perfusio n noted. EXTREMITIES: No significant edema. IMPRESSION/PLAN: : 1. Pituitary and microadenoma. 2. Electrolyte abnormalities. 3. Deconditioning and weakness. 4. Status post coronary artery bypass graft. 5. Status post cerebrovascular accident. 6. Issues with polydipsia, _ ___, poor compliance with recommendations and water controlled. Failed attempt at DDAVP, as repetiti ve times of significant correction on this patient could not change his behavioral patterns and water drinking, despite counseling on restrictions. At this time, see my prior notes, there is plenty of recommendations regarding kimberly lucero's outpatient followup. I have discussed with the patient and family. We w ill continue just to follow intermittently. My next visit will be Saturday. Dictated By: Jhon Villegas MD Date Dictated: 12/31/2021 11:21:20 Date Transcribed: 12/31/2021 13:35:53 /BRANNON Receipt ID: [id number] Authenticated and Edited by Jhon Villegas MD On 01/03/22 11:35:56 PM PATIENT NAME: GARCÍA MARRERO ACCOUNT #: [id number] Electronically Signed by Jhon Villegas MD on at 1137 PATIENT NAME: GARCÍA MARRERO [id number] 2021-12-30 15:37:00-00:00 [facility] ([facility] Hospitalist Progress Note REPORT#:[id number] REPORT STATUS: Signed DATE:12/30/21 TIME: 1537 PATIENT: GARCÍA MARRERO UNIT #: [id number] ROOM/BED: 318-A : 55 AGE: 66 SEX: M ATTEND: Royal Mendez MD ADM AUTHOR: Billy Maxwell MD * ALL edits or amendments must be made on the [employer]/computer document * Subjective Chief complaint: s/p CABG and AVR HPI: Pt reports better sleep last night, improved motor strength in left leg and able to exercsie more. Appetite good and hyponatremia normalized. Mina catheter yielding normal yellow ur ine. Will schedule voiding trial in AM Free Text Subj Notes Free Text Subj Notes: doing well today. denies any complaint Review of Systems All systems rev neg: except as marked Objective General VS/I O: Vital Signs: Date Time Temp Pulse Resp B/P B/P Pulse O2 O2 F low FiO2 Mean Ox Delivery Rate 12/30 0830 36.5 53 18 155/79 104.1 98 Room air 12/30 0432 36.5 66 16 150/77 101.5 98 Room air 12/29 1856 37.0 82 17 166/80 108.4 100 Room air 12/29 1617 36.6 55 14 145/88 107.3 94 Room air 24 hour I O ending at 0700: 12/30 0700 12/29 1900 Intake Total 300 1020 Output Total Balance 300 1020 Intake, Oral 300 1020 Intake, Oral 0 Supplement Number 1 Bowel Movements Number 0 0 Incontinent Voids Number Voids 2 3 PATIENT WEIGHT: Weight (lb): 238 Weight (oz): 5.12 Weight (kg): 108.100 Medications: Active Meds + DC'd Last 24 Hrs Warfarin Sodium (COUMADIN) 7.5 MG QPM PO Miscellaneous Information (WARFARIN PHARMACY TO DOSE) 1 EACH ASDIR PO ( CKD) Zolpidem Tartrate (AMBIEN (C-IV)) 5 MG BEDTIME P RN PRN PO Melatonin (MELATONIN) 3 MG BEDTIME PO Lisinopril (PRINIVIL) 20 MG DAILY PO Insulin Glargine (Lantus/Semglee) 30 UNITS BEDTI ME SUBQ Lidocaine HCl (Glydo 2% JELLY) 1 APPLIC 5XDAY TO PICAL Insulin Human Lispro (HumaLOG) MEDIUM DOSE SLIDI NG SCALE AC HS SUBQ Clopidogrel Bisulfate (PLAVIX) 75 MG DAILY PO Levothyroxine Sodium (Synthroid) 125 MCG DAILY P O Pmfoa-[id number] Ethyl Esters (LOVAZA) 1 GM DAILY PO (CKD) Aspirin (ASPIRIN EC) 81 MG BEDTIME PO Atorvastatin Calcium (LIPITOR) 80 MG BEDTIME PO Carvedilol (COREG) 6.25 MG Q12HR PO Docusate Sodium (COLACE) 100 MG BID PO Famotidine (PEPCID) 20 MG BID PO Fenofibrate (TRICOR) 108 MG BEDTIME PO Ondansetron HCl (ZOFRAN ODT) 4 MG Q6H PRN PRN PO Acetaminophen (TYLENOL) 650 MG Q4H PRN PRN PO Dextrose/Water (DEXTROSE 50% IN WATER) 12.5 GM A SDIR PRN IV Dextrose/Water (DEXTROSE 50% IN WATER) 25 GM ASD IR PRN IV Hydrocodone Bitart/Acetaminophen (NORCO 5/325 TA BLET (C-II)) 1 TAB Q6H PRN PRN PO Bisacodyl (DULCOLAX) 5 MG BID PRN PRN PO Bisacodyl (BISACODYL SUPP) 10 MG DAILY PRN PRN R ECTAL Docusate Sodium (COLACE) 100 MG BID PRN PRN PO Magnesium Hydroxide (MILK OF MAGNESIA) 30 ML MICHA LY PRN PRN PO Physical Exam Head/Eyes: atraumatic, normal eyelids/periorb., normocephalic ENT: normal dentition, normal ear left, normal e ar right, normal nose Neck: supple/no meningismus, no masses or swelli ng Cardiovascular: normal heart sounds, regular rat e rhythm, sternotomy wound clean and dried without discharge Respiratory: clear to auscultation, no distress Abdomen: non-tender, normal bowel sounds , soft, no distention, no guarding, no mass/organomegaly, no rebound Extremities: no edema, not able to raise LLE Neuro/CUTTER WOODWIND REEDS: alert, oriented X 3, mild left leg weakness, but able to lift off bed against gravity. Motor strength much improved. Considered stroke alert: yes Skin: dry, normal temperature Psychiatry: normal affect, normal judgment/insig ht, normal mood Diagnosis, Assessment Plan Problem List/A P: 1. S/P AVR (aortic valve replacement) 2. S/P CABG x 4 3. Right pontine stroke 4. Acute left-sided weakness 5. Diabetes insipidus 6. HTN (hypertension), benign 7. DM2 (diabetes mellitus, type 2) 8. Thoracic aortic aneurysm, without rupture 9. Hyponatremia Free Text DxA P Notes Free text DxA P notes: 1. S/P AVR (aortic valve replacement) Post-op pain controlled. Anticoagulation with w arfarin 10 mg QPM. INR 3.2 hold wafarrin for today goal INR 2-3 2. S/P CABG x 4 Continue current meds. CVS following. Sternotom y wound dried and clean 3. 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 DM2 (diabetes mellitus, type 2) Continue Lantus 30u HS, and MDSSI. D/c glipizide to reduce risk of hypoglycemia 6. HTN (hypertension), benign - episode of hypotension, continue coreg and li sinopril. bp elevated. resume low dose norvasc 7. Thoracic aortic aneurysm, without rupture - stable TAA at 4.5 cm 8. Diabetes insipidus DDAVP nasal spray discontin ued last 4 days, pt on fluid restriction but denies polydipsia 9. 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 Urinary retention, likely sequella of acute pontine stroke - Plan voiding trial Saturday. D/w Dr Ruiz Consultants: cardiovascular surgery, hospitalist , neurology DVT PPX: warfarin Continue rehab. Quality: Gen Med Crit Care VTE Prophylaxis VTE prophylaxis initiated: yes Current Medications Current medication review: I attest that the foregoing medication list in t he medical record is true, accurate, and complete to the best of my knowled ge. Advanced Care Plan 65 or Older Discussed with: patient (full code) Discussion included: code status (full code) Electronically Signed by Billy Maxwell MD on 2 at 1539 RPT #:[id number] END OF REPORT 2021-12-29 16:18:00-00:00 [id number] [facility] [id number] [place] [address] PATIENT NAME: GARCÍA MARRERO ADMIT DATE: 11/18 ACCOUNT NO: [id number] ROOM NO: [facility] AGE: 66 REPORT TYPE: PROGRESS NOTE SEX: M ADMITTING PHYSICIAN:Mp Mendez MD ATTENDING PHYSICIAN:Mp Mendez MD DATE: 12/29/2021 SUBJECTIVE: The patient was seen, chart reviewed . He seems to be doing a lot better. he has been voiding well. He has got a history of hemiplegia after his coronary artery bypass and he is on the rehab fl ond. He seems to be doing pretty stable, not in distress. OBJECTIVE: VITAL SIGNS: He is afebrile. Vital signs are sta ble. ABDOMEN: Soft. Bladder is nondistended. ASSESSMENT AND PLAN: A 66-year-old with a histor y of benign prostate hypertrophy, also some urinary retention after h is CABG and doing pretty well now. We will monitor him and once he is discharged, he can follow up with me as an outpatient. Dictated By: Luke Ruiz MD Date Dictated: 12/29/2021 16:18:20 Date Transcribed: 12/29/2021 16:36:44 [facility] Receipt ID: [id number] Authenticated by Luke Ruiz MD On 10:36:11 PM Electronically Signed by Luke Ruiz MD on 1 at 1036 PATIENT NAME: GARCÍA MARRERO [id number] 2021-12-29 15:04:00-00:00 [facility] ([facility]) Hospitalist Progress Note REPORT#:[id number] REPORT STATUS: Signed DATE:12/29/21 TIME: 1504 PATIENT: GARCÍA MARRERO UNIT #: [id number] ROOM/BED: [facility]-A : 55 AGE: 66 SEX: M ATTEND: Royal Mendez MD ADM AUTHOR: Billy Maxwell MD * ALL edits or amendments must be made on the [employer]/computer document * Subjective Chief complaint: s/p CABG and AVR HPI: Pt reports better sleep last night, improved motor strength in left leg and able to exercsie more. Appetite good and hyponatremia normalized. Mina catheter yielding normal yellow ur ine. Will schedule voiding trial in AM Free Text Subj Notes Free Text Subj Notes: no acute inerval change. denies any complaint Review of Systems All systems rev neg: except as marked Objective General VS/I O: Vital Signs: Date Time Temp Pulse Resp B/P B/P Pulse O2 O2 F low FiO2 Mean Ox Delivery Rate 12/29 0457 36.6 53 16 164/74 104.3 100 12/28 2014 36.9 61 16 129/71 90.0 97 12/28 1644 37.0 56 14 138/73 95.0 97 Room air 24 hour I O ending at 0700: 12/29 0700 12/28 1900 Intake Total 500 950 Output Total 400 Balance 100 950 Intake, Oral 500 950 Intake, Oral 0 Supplement Number 0 1 Bowel Movements Number 0 0 Incontinent Voids Number Voids 2 4 Output, Urine 400 PATIENT WEIGHT: Weight (lb): 238 Weight (oz): 5.12 Weight (kg): 108.100 Medications: Active Meds + DC'd Last 24 Hrs Warfarin Sodium (COUMADIN) 7.5 MG QPM PO Miscellaneous Information (WARFARIN PHARMACY TO DOSE) 1 EACH ASDIR PO ( CKD) Zolpidem Tartrate (AMBIEN (C-IV)) 5 MG BEDTIME PRN PRN PO Melatonin (MELATONIN) 3 MG BEDTIME PO Warfarin Sodium (COUMADIN) 10 MG QPM PO (DC) Lisinopril (PRINIVIL) 20 MG DAILY PO Insulin Glargine (Lantus/Semglee) 30 UNITS BEDTI ME SUBQ Lidocaine HCl (Glydo 2% JELLY) 1 APPLIC 5XDAY TO PICAL Insulin Human Lispro (HumaLOG) MEDIUM DOSE SLIDI NG SCALE AC HS SUBQ Clopidogrel Bisulfate (PLAVIX) 75 MG DAILY PO Levothyroxine Sodium (Synthroid) 125 MCG DAILY P O Owigz-1-Nouc Ethyl Esters (LOVAZA) 1 GM DAILY P O (CKD) Aspirin (ASPIRIN EC) 81 MG BEDTIME PO Atorvastatin Calcium (LIPITOR) 80 MG BEDTIME PO Carvedilol (COREG) 6.25 MG Q12HR PO Docusate Sodium (COLACE) 100 MG BID PO Famotidine (PEPCID) 20 MG BID PO Fenofibrate (TRICOR) 108 MG BEDTIME PO Ondansetron HCl (ZOFRAN ODT) 4 MG Q6H PRN PRN P O Acetaminophen (TYLENOL) 650 MG Q4H PRN PRN PO Dextrose/Water (DEXTROSE 50% IN WATER) 12.5 GM A SDIR PRN IV Dextrose/Water (DEXTROSE 50% IN WATER) 25 GM ASD IR PRN IV Hydrocodone Bitart/Acetaminophen (NORCO 5/325 TA BLET (C-II)) 1 TAB Q6H PRN PRN PO Bisacodyl (DULCOLAX) 5 MG BID PRN PRN PO Bisacodyl (BISACODYL SUPP) 10 MG DAILY PRN PRN R ECTAL Docusate Sodium (COLACE) 100 MG BID PRN PRN PO Magnesium Hydroxide (MILK OF MAGNESIA) 30 ML MICHA LY PRN PRN PO Dietitian nutrition assessment The data set between the solid lines has been im ported from the dietitian's assessment. BMI Calculated: 32.3 Nutrition related diagnosis: Obese Nutrition diagnosis details: BMI 30-39.9 Nutrition problem: INCREASED NUTRIENT NEEDS Nutrition etiology: INCREASED NUTRIENT DEMAND Nutrition signs and symptoms: PT S/P CABG Nutrition prescription: - CONT DIABETIC DIET WIT H 5 CHO/SERVING AND EASY-TO- CHEW TEXTURES - PROVIDE GLUCERNA BID TO HELP PT BETTER MEET NUTRITIONAL NEEDS Dietitian name: Fariha Aguilera, MS, RD, LDN Assessment completed: 12/18/21 Physical Exam Head/Eyes: atraumatic, normal eyelids/periorb., normocephalic ENT: normal dentition, normal ear left, normal e ar right, normal nose Neck: supple/no meningismus, no masses or swelli ng Cardiovascular: normal heart sounds, regular rat e rhythm, sternotomy wound clean and dried without discharge Respiratory: clear to auscultation, no distress Abdomen: non-tender, normal bowel sounds , soft, no distention, no guarding, no mass/organomegaly, no rebound Extremities: no edema, not able to raise LLE Neuro/CUTTER WOODWIND REEDS: alert, oriented X 3, mild left leg weakness, but able to lift off bed against gravity. Motor strength much improved. Considered stroke alert: yes Skin: dry, normal temperature Psychiatry: normal affect, normal judgment/insig ht, normal mood Results Findings/Data: Laboratory Tests 12/29 12/29 12/28 12/28 1122 0715 2015 1640 Chemistry POC Glucose (60 - 99 MG/DL) 150 H 111 H 151 H 1 12 H Laboratory Tests 12/29 0739 Coagulation INR (0.86 - 1.14) 2.2 H PT Patient/Control Mix (9.4 - 12.7 SECONDS) 24. 4 H Diagnosis, Assessment Plan Problem List/A P: 1. S/P AVR (aortic valve replacement) 2. S/P CABG x 4 3. Right pontine stroke 4. Acute left-sided weakness 5. Diabetes insipidus 6. HTN (hypertension), benign 7. DM2 (diabetes mellitus, type 2) 8. Thoracic aortic aneurysm, without rupture 9. Hyponatremia Free Text DxA P Notes Free text DxA P notes: 1. S/P AVR (aortic valve replacement) Post-op pain controlled. Anticoagulation with w arfarin 10 mg QPM. INR 3.2 hold wafarrin for today goal INR 2-3 2. S/P CABG x 4 Continue current meds. CVS following. Sternotom y wound dried and clean 3. 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 DM2 (diabetes mellitus, type 2) Continue Lantus 30u HS, and MDSSI. D/c glipizide to reduce risk of hypoglycemia 6. HTN (hypertension), benign - episode of hypotension, continue coreg and li sinopril. d/c amlodipine 7. Thoracic aortic aneurysm, without rupture - stable TAA at 4.5 cm 8. Diabetes insipidus DDAVP nasal spray discontin ued last 4 days, pt on fluid restriction but denies polydipsia 9. 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 Urinary retention, likely sequella of acute pontine stroke - Plan voiding trial Saturday. D/w Dr Ruiz Consultants: cardiovascular surgery, hospitalist , neurology DVT PPX: warfarin Continue rehab. Quality: Gen Med Crit Care VTE Prophylaxis VTE prophylaxis initiated: yes Current Medications Current medication review: I attest that the foregoing medication list in t he medical record is true, accurate, and complete to the best of my knowled ge. Advanced Care Plan 65 or Older Discussed with: patient (full code) Discussion included: code status (full code) Electronically Signed by Billy Maxwell MD on 2 at 1505 [facility] #:[id number] END OF REPORT 2021-12-29 13:14:00-00:00 [id number] [place] [address] PATIENT NAME: GARCÍA MARRERO ADMIT DATE: 11/18 ACCOUNT NO: [id number] ROOM NO: [facility] AGE: 66 REPORT TYPE: PROGRESS NOTE SEX: M ADMITTING PHYSICIAN:Mp Mendez MD ATTENDING PHYSICIAN:Mp Mendez MD DATE: 12/29/2021 Mr. Marrero is seen on for rehabilitation direction following an acute left hemiplegia of uncertain etiology which occu rred within 48 hours of a quadruple aortocoronary artery bypass graft proc edure and concomitant aortic valve bioprosthetic replacement on 12/06/2021. T he patient has made good neurological recovery in his left upper and lower extremities since the onset of his hemiplegia and he was subsequently discharge d to this inpatient rehabilitation facility on 12/15/2021. Since the n, he has continued his recovery and he has been monitored closely by nd s admitting hospitalist. The patient's prothrombin time t his morning was down to 24.4 seconds from a high of 36.3 seconds yesterday. His INR has come down from 3.2 to 2.2 today. His other laboratory tests, most recently show essentially normal electrolytes and his diabetes is under satisfacto ry control with blood sugars often in the low 100s. The patient has some chronic kidney disease with elevated creatinine and BUN. He does have significant diabetes and likely has a diabetic nephropathy. The patient was seen today in [facility] rehabilitation gym showing good progress with both transfers and ambulation. He is alert and orient ed, in good spirits and accepting of the team's deci mikki to extend his stay here to enable him to reach a significantly higher levels of function in mob ility and self-care [place]. The patient has presently re ached setup for feeding and is independent with oral hygiene, but is still at a m ax to total assist for toileting hygiene and toilet transfers while needing moderate assist with bathing and supervision for upper and lower body dressing. He is setup for feeding and oral hygiene and just reached setup yesterday for upper body dressing, but his lower body dressing decreased to maximal assistance yesterday. He is anywhere from moderate to maximal assist for bed mobil ity and transfers. He is slowly progressing in gait training. He will continue w ith his present rehabilitation program at this time while his medical condition is closely monitored and appropriate intervention taken as indicated to prevent any interruption o f his rehabilitation program. His vital signs today showed a temperature of 36 .6 degrees centigrade, pulse only 53, respirations 16, blood pressure 164/74 with oxygen saturation of 100% on room air. Dictated By: Mp Mendez MD Date Dictated: 12/29/2021 13:14:35 Date Transcribed: 12/29/2021 14:00:59 [facility] PATIENT NAME: GARCÍA MARRERO [id number] Receipt ID: [id number] Authenticated by Mp Mendez MD On 09:38:54 AM Electronically Signed by Mp Mendez MD on at 0938 PATIENT NAME: GARCÍA MARRERO [id number] 2021-12-28 19:43:00-00:00 [facility] ([facility]) Cardiovascular Surgery Prog REPORT#:[id number] REPORT STATUS: Signed DATE:12/28/21 TIME: 1942 PATIENT: GARCÍA MARRERO UNIT #: [id number] ROOM/BED: [facility]-A : 55 AGE: 66 SEX: M ATTEND: Royal Mendez MD ADM AUTHOR: Irene Gonzalez * ALL edits or amendments must be made on the [employer]/computer document * General Status post: ACB x 4 Subjective Patient reports: No: complaints. Nursing reports: No: complaints. Comments: The patient is seen at bedside, doing well He states that he has increased motor st rength to his left lower extremity and ambulated in the hallway today Review of Systems Constitutional: Denies: chills, fatigue, fever, generalized weak ness. Respiratory: Denies: PHELPS (dyspnea on exertion), SOB. Cardiovascular: Denies: chest pain. Objective General VS/I O: Last Documented: Result Date Time Pulse Ox 97 12/29 1643 B/P 138/73 12/29 1643 B/P Mean 95.0 12/29 1643 O2 Delivery Room air 12/29 1643 Temp 37.0 12/29 1643 Pulse 56 12/29 1643 Resp 14 12/29 1643 24 hour I O ending at 0700: 12/28 0700 12/27 1900 Intake Total 100 960 Output Total 650 850 Balance -550 110 Intake, Oral 100 960 Intake, Oral 0 Supplement Number 0 0 Bowel Movements Number 0 0 Incontinent Voids Number Voids 2 5 Output, Urine 650 850 PATIENT WEIGHT: Weight (lb): 238 Weight (oz): 5.12 Weight (kg): 108.100 Medications: Active Meds + DC'd Last 24 Hrs Miscellaneous Information (WARFARIN PHARMACY TO DOSE) 1 EACH ASDIR PO ( CKDr) Zolpidem Tartrate (AMBIEN (C-IV)) 5 MG BEDTIME P RN PRN PO Melatonin (MELATONIN) 3 MG BEDTIME PO Warfarin Sodium (COUMADIN) 10 MG QPM PO (DA) Lisinopril (PRINIVIL) 20 MG DAILY PO Insulin Glargine (Lantus/Semglee) 30 UNITS BEDTI ME SUBQ Lidocaine HCl (Glydo 2% JELLY) 1 APPLIC 5XDAY TO PICAL Insulin Human Lispro (HumaLOG) MEDIUM DOSE SLIDI NG SCALE AC HS SUBQ Clopidogrel Bisulfate (PLAVIX) 75 MG DAILY PO Levothyroxine Sodium (Synthroid) 125 MCG DAILY P O Rxcik-5-Pnne Ethyl Esters (LOVAZA) 1 GM DAILY PO (CKD) Aspirin (ASPIRIN EC) 81 MG BEDTIME PO Atorvastatin Calcium (LIPITOR) 80 MG BEDTIME PO Carvedilol (COREG) 6.25 MG Q12HR PO Docusate Sodium (COLACE) 100 MG BID PO Famotidine (PEPCID) 20 MG BID PO Fenofibrate (TRICOR) 108 MG BEDTIME PO Ondansetron HCl (ZOFRAN ODT) 4 MG Q6H PRN PRN PO Acetaminophen (TYLENOL) 650 MG Q4H PRN PRN PO Dextrose/Water (DEXTROSE 50% IN WATER) 12.5 GM A SDIR PRN IV Dextrose/Water (DEXTROSE 50% IN WATER) 25 GM ASD IR PRN IV Hydrocodone Bitart/Acetaminophen (NORCO 5/325 TA BLET (C-II)) 1 TAB Q6H PRN PRN PO Bisacodyl (DULCOLAX) 5 MG BID PRN PRN PO Bisacodyl (BISACODYL SUPP) 10 MG DAILY PRN PRN R ECTAL Docusate Sodium (COLACE) 100 MG BID PRN PRN PO Magnesium Hydroxide (MILK OF MAGNESIA) 30 ML MICHA LY PRN PRN PO Dietitian nutrition assessment The data set between the solid lines has been im ported from the dietitian's assessment. BMI Calculated: 32.3 Nutrition related diagnosis: Obese Nutrition diagnosis details: BMI 30-39.9 Nutrition problem: INCREASED NUTRIENT NEEDS Nutrition etiology: INCREASED NUTRIENT DEMAND Nutrition signs and symptoms: PT S/P CABG Nutrition prescription: - CONT DIABETIC DIET WIT H 5 CHO/SERVING AND EASY-TO- CHEW TEXTURES - PROVIDE GLUCERNA BID TO HELP PT BETTER MEET NUTRITIONAL NEEDS Dietitian name: Fariha Aguilera, MS, RD, LDN Assessment completed: 12/18/21 Nutrition provider diagnosis: obese Review of dietitian's assessment: reviewed and a gree Physical Exam General appearance: alert, awake, oriented, no a cute distress Wound/incision: Location: median sternotomy, right lower extrem ity Site condition: dressing clean dry, incision in tact, no drainage, no erythema, Sternum is stable Neck: non-tender, no masses or swelling Cardiovascular: BP/pulses equal bilat., normal h eart sounds, regular rate rhythm Respiratory: aerating well Abdomen: soft, non-tender, normal bowel sounds, no distention Extremities: no edema Neuro/CUTTER WOODWIND REEDS: alert, oriented X 3, pt. unable to li ft up his left foot Considered stroke alert: yes Results Findings/Data: Laboratory Tests 12/28 12/28 12/28 12/27 1640 1115 0718 2056 Chemistry POC Glucose (60 - 99 MG/DL) 112 H 128 H 102 H 131 H Laboratory Tests 12/28 0427 Coagulation INR (0.86 - 1.14) 3.2 H PT Patient/Control Mix (9.4 - 12.7 SECONDS) 36. 3 H Diagnosis, Assessment Plan Free Text A P: Pt. with CAD S/p ACB x 4 with AVR Pituitary mass Diabetes Hypertension Hyperlipidemia Acute left sided weakness-improved motor strengt h to his left lower extremity PT/INR therapeutic PLAN: Continue with warfarin Continue with rehab at 1949 at 7353 RPT #:[id number] END OF REPORT 2021-12-28 18:00:00-00:00 [facility] ([facility] Hospitalist Progress Note REPORT#:[id number] REPORT STATUS: Signed DATE:12/28/21 TIME: 1800 PATIENT: GARCÍA MARRERO UNIT #: [id number] ROOM/BED: [facility] : 55 AGE: 66 SEX: M ATTEND: Royal Mendez MD ADM AUTHOR: Billy Maxwell MD * ALL edits or amendments must be made on the [employer]/computer document * Subjective Chief complaint: s/p CABG and AVR HPI: Pt reports better sleep last night, improved motor strength in left leg and able to exercsie more. Appetite good and hyponatremia normalized. Mina catheter yielding normal yellow ur ine. Will schedule voiding trial in AM Free Text Subj Notes Free Text Subj Notes: DOING WELL. NO COMPLAINT. VSS Review of Systems All systems rev neg: except as marked Objective General VS/I O: Vital Signs: Date Time Temp Pulse Resp B/P B/P Pulse O2 O2 F low FiO2 Mean Ox Delivery Rate 12/28 1644 37.0 56 14 138/73 95.0 97 Room air 12/28 1030 67 16 135/86 102.3 100 Room air 12/28 0754 36.6 51 16 148/79 102.0 97 Room air 12/28 0430 36.7 51 16 130/84 99.5 98 Room air 12/27 2054 36.5 63 16 151/82 105.3 100 Room air 24 hour I O ending at 0700: 12/28 0700 12/27 1900 Intake Total 100 960 Output Total 650 850 Balance -550 110 Intake, Oral 100 960 Intake, Oral 0 Supplement Number 0 0 Bowel Movements Number 0 0 Incontinent Voids Number Voids 2 5 Output, Urine 650 850 PATIENT WEIGHT: Weight (lb): 238 Weight (oz): 5.12 Weight (kg): 108.100 Medications: Active Meds + DC'd Last 24 Hrs Miscellaneous Information (WARFARIN PHARMACY TO DOSE) 1 EACH ASDIR PO ( CKDr) Zolpidem Tartrate (AMBIEN (C-IV)) 5 MG BEDTIME PRN PRN PO Melatonin (MELATONIN) 3 MG BEDTIME PO Warfarin Sodium (COUMADIN) 10 MG QPM PO (DA) Lisinopril (PRINIVIL) 20 MG DAILY PO Insulin Glargine (Lantus/Semglee) 30 UNITS BEDTI ME SUBQ Lidocaine HCl (Glydo 2% JELLY) 1 APPLIC 5XDAY TO PICAL Insulin Human Lispro (HumaLOG) MEDIUM DOSE SLIDI NG SCALE AC HS SUBQ Clopidogrel Bisulfate (PLAVIX) 75 MG DAILY PO Levothyroxine Sodium (Synthroid) 125 MCG DAILY P O Ztfvz-7-Vbjh Ethyl Esters (LOVAZA) 1 GM DAILY P O (CKD) Aspirin (ASPIRIN EC) 81 MG BEDTIME PO Atorvastatin Calcium (LIPITOR) 80 MG BEDTIME PO Carvedilol (COREG) 6.25 MG Q12HR PO Docusate Sodium (COLACE) 100 MG BID PO Famotidine (PEPCID) 20 MG BID PO Fenofibrate (TRICOR) 108 MG BEDTIME PO Ondansetron HCl (ZOFRAN ODT) 4 MG Q6H PRN PRN P O Acetaminophen (TYLENOL) 650 MG Q4H PRN PRN PO Dextrose/Water (DEXTROSE 50% IN WATER) 12.5 GM A SDIR PRN IV Dextrose/Water (DEXTROSE 50% IN WATER) 25 GM ASD IR PRN IV Hydrocodone Bitart/Acetaminophen (NORCO 5/325 TA BLET (C-II)) 1 TAB Q6H PRN PRN PO Bisacodyl (DULCOLAX) 5 MG BID PRN PRN PO Bisacodyl (BISACODYL SUPP) 10 MG DAILY PRN PRN R ECTAL Docusate Sodium (COLACE) 100 MG BID PRN PRN PO Magnesium Hydroxide (MILK OF MAGNESIA) 30 ML MICHA LY PRN PRN PO Dietitian nutrition assessment The data set between the solid lines has been im ported from the dietitian's assessment. BMI Calculated: 32.3 Nutrition related diagnosis: Obese Nutrition diagnosis details: BMI 30-39.9 Nutrition problem: INCREASED NUTRIENT NEEDS Nutrition etiology: INCREASED NUTRIENT DEMAND Nutrition signs and symptoms: PT S/P CABG Nutrition prescription: - CONT DIABETIC DIET WIT H 5 CHO/SERVING AND EASY-TO- CHEW TEXTURES - PROVIDE GLUCERNA BID TO HELP PT BETTER MEET NUTRITIONAL NEEDS Dietitian name: Fariha Aguilera, MS, RD, LDN Assessment completed: 12/18/21 Physical Exam Head/Eyes: atraumatic, normal eyelids/periorb., normocephalic ENT: normal dentition, normal ear left, normal e ar right, normal nose Neck: supple/no meningismus, no masses or swelli ng Cardiovascular: normal heart sounds, regular rat e rhythm, sternotomy wound clean and dried without discharge Respiratory: clear to auscultation, no distress Abdomen: non-tender, normal bowel sounds , soft, no distention, no guarding, no mass/organomegaly, no rebound Extremities: no edema, not able to raise LLE Neuro/CUTTER WOODWIND REEDS: alert, oriented X 3, mild left leg weakness, but able to lift off bed against gravity. Motor strength much improved. Considered stroke alert: yes Skin: dry, normal temperature Psychiatry: normal affect, normal judgment/insig ht, normal mood Results Findings/Data: Laboratory Tests 12/28 12/28 12/28 12/27 12/27 1640 1115 0718 2056 1810 Chemistry Sodium (137 - 145 MMOL/L) 138 Potassium (3.5 - 5.1 MMOL/L) 4.1 Chloride (98 - 107 MMOL/L) 102 Carbon Dioxide (22 - 30 MMOL/L) 23 BUN (9 - 20 MG/DL) 28 H Creatinine (0.66 - 1.25 MG/DL) 1.30 H Glomerular Filtr Rate 55 Glucose (74 - 106 MG/DL) 121 H POC Glucose (60 - 99 MG/DL) 112 H 128 H 102 H 1 31 H Calcium (8.4 - 10.2 MG/DL) 9.4 Laboratory Tests 12/28 12/27 0427 1810 Coagulation INR (0.86 - 1.14) 3.2 H 3.2 H PT Patient/Control Mix (9.4 - 12.7 SECONDS) 36. 3 H 35.9 H Diagnosis, Assessment Plan Problem List/A P: 1. S/P AVR (aortic valve replacement) 2. S/P CABG x 4 3. Right pontine stroke 4. Acute left-sided weakness 5. Diabetes insipidus 6. HTN (hypertension), benign 7. DM2 (diabetes mellitus, type 2) 8. Thoracic aortic aneurysm, without rupture 9. Hyponatremia Free Text DxA P Notes Free text DxA P notes: 1. S/P AVR (aortic valve replacement) Post-op pain controlled. Anticoagulation with w arfarin 10 mg QPM. INR 3.2 hold wafarrin for today goal INR 2-3 2. S/P CABG x 4 Continue current meds. CVS following. Sternotom y wound dried and clean 3. 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 DM2 (diabetes mellitus, type 2) Continue Lantus 30u HS, and MDSSI. D/c glipizide to reduce risk of hypoglycemia 6. HTN (hypertension), benign - episode of hypotension, continue coreg and li sinopril. d/c amlodipine 7. Thoracic aortic aneurysm, without rupture - stable TAA at 4.5 cm 8. Diabetes insipidus DDAVP nasal spray discontin ued last 4 days, pt on fluid restriction but denies polydipsia 9. 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 Urinary retention, likely sequella of acute pontine stroke - Plan voiding trial Saturday. D/w Dr Ruiz Consultants: cardiovascular surgery, hospitalist , neurology DVT PPX: warfarin Continue rehab. Quality: Gen Med Crit Care VTE Prophylaxis VTE prophylaxis initiated: yes Current Medications Current medication review: I attest that the foregoing medication list in t he medical record is true, accurate, and complete to the best of my knowled ge. Advanced Care Plan 65 or Older Discussed with: patient (full code) Discussion included: code status (full code) Electronically Signed by Billy Maxwell MD on 2 at 1801 RPT #:[id number] END OF REPORT 2021-12-28 14:01:00-00:00 [id number] [address] PATIENT NAME: GARCÍA MARRERO ADMIT DATE: 11/18 ACCOUNT NO: [id number] ROOM NO: Z.[id number] AGE: 66 REPORT TYPE: PROGRESS NOTE SEX: M ADMITTING PHYSICIAN:Mp Mendez MD ATTENDING PHYSICIAN:Mp Mendez MD DATE: 12/28/2021 Mr. Marrero is seen on 022 for rehabilitation direction and for the interim interdisciplinary team bina gonzalo to be documented elsewhere following an acute left hemiplegia of uncertain etiology, occurring within 48 hours of a quadruple aortocoronary artery bypass graft procedure and concomitant aortic valve bioprosthetic replacement on 12/06/2021. This pa tient had been found to have critical aortic stenosis as well as severe multivessel coronary artery disease. He had been studied with a left heart catheteriz ation by his primary tutoring manager and referred to the cardiothoracic surgeon at this hospital. The patient underwent the procedure and about 24-48 hours later, he was having difficulty moving his left s meeta and was leaning towards the left when ambulating and he had progression of th e left sided weakness to almost complete hemiplegia. CT of the brain showed no ischemic lesion and n o other abnormality. The patient underwent serial brain CTs, which contin ued to show no evidence of ischemic lesion and he under went a CTA of the brain, which showed no significant obstructive lesions or ische darwin changes. The neurologist wished to proceed with an MRI of the brain, but the cardiovascular surg mark thought it would be contraindicated at this point and would have to be delayed. The patient was also seen by nephrology for chronic polydipsia and polyuria and the yard stocker suspected diabetes insipidus and the patient had a trial of DDAVP and fluid restriction and yard stocker's suspicion was cor roborated. The patient was recommended to do fluid restrictions, but it was difficult for him to comply. The patient also developed a worsened hyponatremia following the surgery with a serum sodium going down to 125. The patient had blood work yesterday, which showed his serum sodium to be back up to normal at 138, his carbon dioxide was low normal at 23. The patient had originally b n scheduled for discharge home on 12/30/2021, but the team reassessed the nissa ent and reconsidered the discharge date and decided to revise it forward to 01/06/2022 to give the p atient enough time to make functional progress so as to significantly ease the burden of care on the patient's who will be the only one availabl e as a caregiver and she has health issues of her own, wh ich limit her ability to provide physical assistance to this large patient. The patient was seen today in the [facility] litation gym working with occupational therapy on mobility tasks and he has don e a good job. His temperature was 36.7 degrees centigrade with a pulse of 51, respirati ons 16, blood pressure 130/64 and oxygen saturation 98% on room air. T he patient had a prothrombin time done today, which showed a value of 36.3 seconds and an INR 3.2, slightly supratherapeutic. The patient's electrol ytes were all within normal limits and PATIENT NAME: GARCÍA MARRERO [id number] his fasting blood glucoses had come down dramati edward to very good levels, mostly in the low to mid 100s. The patie nt's renal function is stable, but not restored to normal. His BUN yesterday evening wa s 28 with a GFR of 55 and a creatinine of 1.30. The patient was seen yesterday by occupational t aaron for team conference update and the patient has shown progress with kavya jiménez, having advanced from moderate assistance on admission to inde pendent in oral care presently. He has also progressed from moderate assistance for eat ing to set up. He is now moderate assist for bathing, supervision for upper body dressing, contact guard assist for lower body dressing and supervision f or footwear. In hysical therapy, the team conference update indicates th at the patient is now able to perform transfers with partial or moderate romi tance and sit to stand with supervision. He ambulates with the NDT walker wi th total assistance, demonstrating a left lateral lean when standing and sitting positions. The patient can self-correct with verbal cues and ta ctile cues; however, he is unable to prevent the left lateral lean for shor t periods of time. The patient's limiting factor is left neglec t and inability to self-correct for an appropriate amount of time. The patient would be nefit from continued skilled inpatient physical therapy with written instruct ions. As of yesterday, the patient was needing moderate assist with rolling in bed, maximal assist with sitting to lying and lying to sitting, but only supervision for sitting to standing and partial moderat e assist with bed to chair and total assist for all walking. This patient was discussed at team conference. I t was felt that his rehabilitation length of sta y should be increased from 12/30/2021 to 01/06/2022 to enable him to attain sign ificant deficits and advanced to a level of close to a supervision to modified independent. This woul d considerably lessen the burden of care for his who has health issues of her own and is apprehensive about being able to manage him at home without d emonstration of greater improvement on his part to succeed. The patient has been extended and a new discharg e date set specifically 01/06/2022 with the patient returning home with caregiver's assistance. Dictated By: Mp Mendez MD Date Dictated: 12/28/2021 14:01:06 Date Transcribed: 12/28/2021 14:23:21 MELLY/TIMOTEO Receipt ID: [id number] Authenticated by Mp Mendez MD On 09:27:07 AM Electronically Signed by Mp Mendez MD on at 0927 PATIENT NAME: GARCÍA MARRERO [id number] 2021-12-27 19:06:00-00:00 [facility] ([facility] Hospitalist Progress Note REPORT#:[id number] REPORT STATUS: Signed DATE:12/27/21 TIME: 1905 PATIENT: GARCÍA MARRERO UNIT #: [id number] [facility] AGE: 66 SEX: M ATTEND: Royal Mendez MD ADM AUTHOR: Billy Maxwell MD * ALL edits or amendments must be made on the [employer]/computer document * Subjective Chief complaint: s/p CABG and AVR HPI: Pt reports better sleep last night, improved motor strength in left leg and able to exercsie more. Appetite good and hyponatremia normalized. Mina catheter yielding normal yellow ur ine. Will schedule voiding trial in AM Free Text Subj Notes Free Text Subj Notes: denies any complaint today vss. afebrile inr 3.2 Review of Systems All systems rev neg: except as marked Objective General VS/I O: Vital Signs: Date Time Temp Pulse Resp B/P B/P Pulse O2 O2 F low FiO2 Mean Ox Delivery Rate 12/27 0853 36.5 54 16 153/81 105.0 98 Room air 12/27 0609 36.8 61 18 149/79 102 98 Room air 12/26 1943 37.0 64 18 137/77 96.9 97 Room air 24 hour I O ending at 0700: 12/27 0700 12/26 1900 Intake Total 900 Output Total 800 Balance -800 900 Intake, Oral 900 Intake, Oral 0 Supplement Number 1 Bowel Movements Number 0 0 Incontinent Voids Number Voids 4 4 Output, Urine 800 PATIENT WEIGHT: Weight (lb): 238 Weight (oz): 5.12 Weight (kg): 108.100 Medications: Active Meds + DC'd Last 24 Hrs Zolpidem Tartrate (AMBIEN (C-IV)) 5 MG BEDTIME P RN PRN PO Melatonin (MELATONIN) 3 MG BEDTIME PO Warfarin Sodium (COUMADIN) 10 MG QPM PO (CKD) Lisinopril (PRINIVIL) 20 MG DAILY PO Insulin Glargine (Lantus/Semglee) 30 UNITS BEDTI ME SUBQ Lidocaine HCl (Glydo 2% JELLY) 1 APPLIC 5XDAY TO PICAL Insulin Human Lispro (HumaLOG) MEDIUM DOSE SLIDI NG SCALE AC HS SUBQ Clopidogrel Bisulfate (PLAVIX) 75 MG DAILY PO Levothyroxine Sodium (Synthroid) 125 MCG DAILY P O Qqfru-7-Vtnv Ethyl Esters (LOVAZA) 1 GM DAILY PO (CKD) Aspirin (ASPIRIN EC) 81 MG BEDTIME PO Atorvastatin Calcium (LIPITOR) 80 MG BEDTIME PO Carvedilol (COREG) 6.25 MG Q12HR PO Docusate Sodium (COLACE) 100 MG BID PO Famotidine (PEPCID) 20 MG BID PO Fenofibrate (TRICOR) 108 MG BEDTIME PO Ondansetron HCl (ZOFRAN ODT) 4 MG Q6H PRN PRN PO Acetaminophen (TYLENOL) 650 MG Q4H PRN PRN PO Dextrose/Water (DEXTROSE 50% IN WATER) 12.5 GM A SDIR PRN IV Dextrose/Water (DEXTROSE 50% IN WATER) 25 GM ASD IR PRN IV Hydrocodone Bitart/Acetaminophen (NORCO 5/325 TA BLET (C-II)) 1 TAB Q6H PRN PRN PO Bisacodyl (DULCOLAX) 5 MG BID PRN PRN PO Bisacodyl (BISACODYL SUPP) 10 MG DAILY PRN PRN R ECTAL Docusate Sodium (COLACE) 100 MG BID PRN PRN PO Magnesium Hydroxide (MILK OF MAGNESIA) 30 ML MICHA LY PRN PRN PO Dietitian nutrition assessment The data set between the solid lines has been im ported from the dietitian's assessment. BMI Calculated: 32.3 Nutrition related diagnosis: Obese Nutrition diagnosis details: BMI 30-39.9 Nutrition problem: INCREASED NUTRIENT NEEDS Nutrition etiology: INCREASED NUTRIENT DEMAND Nutrition signs and symptoms: PT S/P CABG Nutrition prescription: - CONT DIABETIC DIET WIT H 5 CHO/SERVING AND EASY-TO- CHEW TEXTURES - PROVIDE GLUCERNA BID TO HELP PT BETTER MEET NUTRITIONAL NEEDS Dietitian name: Fariha Aguilera, MS, RD, LDN Assessment completed: 12/18/21 Physical Exam Head/Eyes: atraumatic, normal eyelids/periorb., normocephalic ENT: normal dentition, normal ear left, normal e ar right, normal nose Neck: supple/no meningismus, no masses or swelli ng Cardiovascular: normal heart sounds, regular rat e rhythm, sternotomy wound clean and dried without discharge Respiratory: clear to auscultation, no distress Abdomen: non-tender, normal bowel sounds , soft, no distention, no guarding, no mass/organomegaly, no rebound Extremities: no edema, not able to raise LLE Neuro/CUTTER WOODWIND REEDS: alert, oriented X 3, mild left leg weakness, but able to lift off bed against gravity. Motor strength much improved. Considered stroke alert: yes Skin: dry, normal temperature Psychiatry: normal affect, normal judgment/insig ht, normal mood Results Findings/Data: Laboratory Tests 12/27 1645 1119 0746 1944 Chemistry Sodium (137 - 145 MMOL/L) 138 Potassium (3.5 - 5.1 MMOL/L) 4.1 Chloride (98 - 107 MMOL/L) 102 Carbon Dioxide (22 - 30 MMOL/L) 23 BUN (9 - 20 MG/DL) 28 H Creatinine (0.66 - 1.25 MG/DL) 1.30 H Glomerular Filtr Rate 55 Glucose (74 - 106 MG/DL) 121 H POC Glucose (60 - 99 MG/DL) 97 141 H 101 H 185 H Calcium (8.4 - 10.2 MG/DL) 9.4 Laboratory Tests 12/27 1809 Coagulation INR (0.86 - 1.14) 3.2 H PT Patient/Control Mix (9.4 - 12.7 SECONDS) 35 .9 H Diagnosis, Assessment Plan Problem List/A P: 1. S/P AVR (aortic valve replacement) 2. S/P CABG x 4 3. Right pontine stroke 4. Acute left-sided weakness 5. Diabetes insipidus 6. HTN (hypertension), benign 7. DM2 (diabetes mellitus, type 2) 8. Thoracic aortic aneurysm, without rupture 9. Hyponatremia Free Text DxA P Notes Free text DxA P notes: 1. S/P AVR (aortic valve replacement) Post-op pain controlled. Anticoagulation with w arfarin 10 mg QPM. INR 3.2 hold wafarrin for today goal INR 2-3 2. S/P CABG x 4 Continue current meds. CVS following. Sternotom y wound dried and clean 3. 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 DM2 (diabetes mellitus, type 2) Continue Lantus 30u HS, and MDSSI. D/c glipizide to reduce risk of hypoglycemia 6. HTN (hypertension), benign - episode of hypotension, continue coreg and li sinopril. d/c amlodipine 7. Thoracic aortic aneurysm, without rupture - stable TAA at 4.5 cm 8. Diabetes insipidus DDAVP nasal spray discontin ued last 4 days, pt on fluid restriction but denies polydipsia 9. 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 Urinary retention, likely sequella of acute pontine stroke - Plan voiding trial Saturday. D/w Dr Ruiz Consultants: cardiovascular surgery, hospitalist , neurology DVT PPX: warfarin Continue rehab. Quality: Gen Med Crit Care VTE Prophylaxis VTE prophylaxis initiated: yes Current Medications Current medication review: I attest that the foregoing medication list in t he medical record is true, accurate, and complete to the best of my knowled ge. Advanced Care Plan 65 or Older Discussed with: patient (full code) Discussion included: code status (full code) Electronically Signed by Billy Maxwell MD on 2 at 1907 [facility] #:[id number] END OF REPORT 2021-12-27 13:27:00-00:00 [id number] [place] [address] PATIENT NAME: GARCÍA MARRERO ADMIT DATE: 11/18 ACCOUNT NO: [id number] ROOM NO: [facility] AGE: 66 REPORT TYPE: PROGRESS NOTE SEX: M ADMITTING PHYSICIAN:Mp Mendez MD ATTENDING PHYSICIAN:Mp Mendez MD DATE: 12/27/2021 Mr. Marrero is seen on for rehabilitation direction following an acute left hemiplegia of uncertain etiology oc curring within 48 hours of a quadruple aortocoronary artery bypass graft procedure and concomitant aortic valve bioprosthetic replacement performed on . The patient has had good neurological return in the l eft upper and lower extremities, but is still slowly progressing with functional performance in both household mobility and self-care skills. The patient is presently scheduled for d ischarge on 12/30/2021, but I am considering recommending extending his stay f or another week to the interdisciplinary team conference scheduled for tomorrow at which time the patient's progress will be reviewed and his functional potential redetermined. The patient appears to be someone who would bene fit from additional inpatient rehabilitation at this time to better prepare дмитрий lim to return home functioning safely and effectively with less amount of careg iver assistance than he presently requires. His is apprehensive abo ut his return because she has health issues of her own, wh ich limits her physical ability to provide him with manual assistance for both mobility and activiti es of daily living. In addition, this patient's medical and functional condition leaves him unable to make frequent changes in his body pos ition in a regular bed, therefore, the team's recommendation is for a semi-electric hospital bed to enable the patient to make positional changes and to reliev e pressure points and also to transfer safely into and out of bed. Medically, the patient is do ing fairly well. He is on oral anticoagulation with warfarin and yesterday's INR was therapeutic at 2.7. Today, the patient refused the blood drawing in the morning for the prothro mbin time and INR. The patient is seen today in the rehabil itation gym up in his wheelchair fully dressed, alert and oriented. He has been working with his physical therapist on standing and walking. The patient is brie rt and oriented. His vital signs today show a temperature of 36.5 degrees centi grade with a pulse of 61, respirations 18, blood pressure 149/79, and an oxygen saturat ion of 98% on room air. The patient was requiring only set up for feedin g yesterday while he required total assist for toileting hygiene and toilet tr ansfers. In occupational therapy yesterday, he required maximum e ncouragement to participate because of fatigue. His spouse was educated on the patient' s functional progress and the amount of assistance that the patient would requ jorden at home. Reportedly, the spouse verbalized understanding of the education al material. In physical therapy yesterday, the patient was able to perfo rm bed mobility with moderate PATIENT NAME: GARCÍA MARRERO [id number] assistance. The patient performed multiple sit t o stand maneuvers with only supervision to moderate assistance. He performed coordination exercises to improve his gait dynamics and was able to consis tently perform proper heel strike, however, the patient ambulated with a narrow base of support and with a lean to the left, which he could correct with ve rbal cues. The patient showed improvement in static sitting balance and was ab le to perform toilet transfer with moderate assistance while maintaining ashleigh ce for hygiene and toileting tasks. The patient will continue with his prese rehabilitation program at this time and be discussed at interdisciplinary team bina sánchez tomorrow to consider requesting an extension of his inpatient rehabil itation stay from his health insurance plan. Dictated By: Mp Mendez MD Date Dictated: 12/27/2021 13:27:53 Date Transcribed: 12/27/2021 14:07:18 MELLY/PHYLLIS Receipt ID: [id number] Authenticated by Mp Mendez MD On 09:39:44 AM Electronically Signed by Mp Mendez MD on at 0939 PATIENT NAME: GARCÍA MARRERO [id number] 2021-12-26 17:01:00-00:00 [facility] ([facility]) Rehab Team Conference REPORT#:[id number] REPORT STATUS: Signed DATE:12/26/21 TIME: 1701 PATIENT: GARCÍA MARRERO UNIT #: [id number] ROOM/BED: [address] : 55 AGE: 66 SEX: M ATTEND: Royal Mendez MD ADM AUTHOR: Mp Mendez MD * ALL edits or amendments must be made on the [employer]/computer document * Rehabilitation Team Conference Weekly Team Conference Team conf information: Date of conference: 12/28/21 Conference type: Interim Conference scribe: Suha Silveira PT INTERDISCIPLINARY TEAM MEETING PARTICIPANTS: TITLE NAME MD JOESPH Machuca RN PT Funmilola Aiyekusibe, PT OT Garima Paz OT CM/JOESPH Benítez NO ATTENDEE [facility] Conrado Coronado RN Staff (8) Cirilo Tolentino PT Staff (9) NO ATTENDEE OTHER NAME CREDENTIALS 1 DR. JUSTO PUENTES PHD 2 FUNCTIONAL CHANGE: TYPE ADMISSION TOTAL INTERIM TOTAL CHANGE Self care 11 27 16 Transfer 8 16 8 Mobility 8 8 0 Wheelchair distance: 150ft Mobility description: w/ use of B LE BOWEL AND BLADDER STATUS: Bowel continence admission rating: Bladder continence admission rating: Bowel and bladder team conference update: INCONT INENT OF BOWEL, CONTINENT OF BLADDER INTERDISCIPLINARY TEAM UPDATES: CAROLYN team conference update: PATIENT HAS BEEN PAR TICIPATING IN REHAB PROGRAM. TRANSFER AND TOILETING REMAI NS TOTAL. INCONTINENT OF BOWEL, CONTINENT OF BLADDER WITH URINAL AT BEDSIDE. BETADINE AND ISL AND DRESSING BEING APPLIED TO INCISION OF THE CHEST AND RIGHT LEG. ON ROOM AIR, PATIENT A OX4, HAS GOOD APPETITE. DENIES PAIN AND SLEEPS WELL AT NIGHT PT team conference update: Pt is making progress in rehab. Pt is now able to perform transfer w/ partial, sts w/ spv, and amb ulate DEP w/ NDT. pt demonstrates left lateral le an when in standing and sitting. Pt is able to self- correct w/ vcs and tactile cues. However , pt is unable to prevent left lateral lean for short period of shy es. Pt limiting factor is L-neglect and inability to self-correct for an appropit ate amount of time. Pt would benefit from continued skilled IP PT treatment sessions to further impr ove standing balance, LLE strength, and cardiovasular endurance in order to progress functional mobility. OT team conference update: AT ADMISSION, PT. COMPLETED EATING AND ORAL CARE W/ PARTIAL A, BATHING AND ALL D RESSING W/ TOTAL A. CURRENTLY, PT. COMPLETED EATING W/ SET UP, ORAL CARE W/ INDEP., BATHING W/ PARTI AL A, UB DRESSING W/ SPV, LB DRESSING W/ CGA, AND FOOTWEAR W/ SPV. PT. WILL C ONTINUE TO BENEFIT FROM INTENSIVE OT SERVICES TO INC REASE I/ADL SKILLS, BUE STRENGTH, LUE COORDINATION, BALANCE, TRUNK STRENGTH AND CONTROL, MOB ILTIY AND TRANSFERS, AND ENDURANCE, WELL CONTINUE HEP TRAINING, FAMILY TRAINING, DME TRAINING, AND OTHER EDUCATION. ST team conference update: P t is on an easy to chew diet and tolerating well. Pt will be assessed to upgrade to a regular diet. O ral motor/speech: Mild oral facial weakness persists. Pt declined shaving fo r vital stim/NMES. Pt will be taught oral facial exs for i ndependent practice/home program. Speech is slightly imprecise but 100% intelligi bile and functional for independent communication of wants/needs/ideas. Pt presen ts with mild cognitive deficits including mild left side neglect, mild inattention/distractibility, mild decreased reasoning/ insight. Pt has decreased motivation to particip ate in s.t. activities due to denial of deficits. Pt reports that the pt is near PLOF for cognitive communication skills. ST will cont to follow for education, training and independent practice activities for 1-3 more ses sions. CM or SW team conference update: LIVES WITH SPOU SE IN [facility]. Other discipline update 1: Other discipline update 2: Other discipline update 3: REHAB DC GOALS: Patient's identified dischar ge goal: PT REGAIN BACK THE STRENGHT AND ABLE TO DO THE ADL,S,HAVING CONTINENCY OF BOWEL AND BLADDER ,HAS HEALING WOUNDS WITH CONTROLLED PAIN. PT: "Right now, all I want to d o is to be able to get up, walk to the toilet and use the bathroom. " OT: "I WANT TO BE ABLE TO GET UP AND GET TO THE TOILET." ST: TO GET BETTER AND GO GENESIS E. Eating discharge goal: Independent (6) Shower/bathe self discharge goal: Partial/moder ate asst (3) Upper body dressing discharge goal: Partial/mod erate asst (3) Lower body dressing discharge goal: Partial/mod erate asst (3) Chair/bed to chair transfer discharge goal: Par tial/moderate asst (3) Transfer on/off toilet or commode discharge goa l: Setup/clean-up only (5) Walking 50 feet with two turns discharge goal: Partial/moderate asst (3) Walking 150 feet discharge goal: Partial/modera te asst (3) Four steps discharge goal: Not applicable Twelve steps discharge goal: Not applicable [place] 150 feet discharge goal: Partial/moder ate asst (3) Goal 1 - Bowel function: DEV L HAVE NORMAL BOWEL CONTINENCY BY ENCOURAGING TO USE THE TOILET Goal 2 - Bladder function: W ILL HAVE NORMAL BLADDER CONTINENCY BY ENCOURAGING TO USE THE TOILET Nursing goal 3: WILL REGAIN THE STRENGHT BY ENCO URAGING THE PATIENT TO PARTICIPATE IN DAILY PT AND OT SERVICES Nursing goal 4: WILL PREVENT PAIN BY GIVING THE PRN PAIN MEDS Nursing goal 5: WILL PREVENT FALL BY OBSERVING F ALL PRECAUTIONS DISCHARGE PLANNING: Barriers to discharge: Fall risk, Caregiver, End urance, Pain, INCONTINENCE Strategies for D/C barriers: Evaluate pain contr ol, Fall recovery training, SAFETY AWARENESS, FAMILY TRAINING , SCHEDULED RE ST BREAKS , BOWEL TRAINING Estimated length of stay in days: 21 Anticipated discharge date: 01/06/22 Discharge date adjustment comment: Identified financial and/or community resource needs: HOME HEALTH SERVICES. DME. Family/Caregiver training days: ONGOING TRAINING [place] day (DATE): 01/05/22 Expected discharge destination: Home Anticipated services upon discharge: Home health , Nurses aide, Nursing, Occupational therapy, Physical therapy Anticipated discharge equipment: Gait belt, Reac her, Sock aid, Shower chair, Bedside commode, Grab bars, Hand held shower hea d, W/C, HOSPITAL BED Impairment group: brain dysfunction NOTE Document ONLY ONE Impairment Group Brain dysfunction: nontraumatic Etiologic diagnosis: LEFT HEMIPLEGIA OF UNKNOWN ETIOLOGY Review of comorbidities: DM, HBP, HLP, HYPOTHYROIDISM, AND VITAMIN B-12 DEFICIENCY Review/Recommendations Attestation: This interdisciplinary team conference was led marisa del castillo and I concur with all decisions made during the team conference and re visions to the individualized overall plan of care. IRF cont stay criteria CONTINUES TO PROGRESS IN MOBILITY SKILLS AND IN ADL PERFORMANCE Electronically Signed by pM Mendez MD on at 1324 RPT #:[id number] END OF REPORT 2021-12-26 15:14:00-00:00 [facility] Hospital[facility] Progress Note REPORT#:[id number] REPORT STATUS: Signed DATE:12/26/21 TIME: 1514 PATIENT: GARCÍA MARRERO UNIT #: [id number] [facility] AGE: 66 SEX: M ATTEND: Royal Mendez MD ADM AUTHOR: Billy Maxwell MD * ALL edits or amendments must be made on the [employer]/computer document * Subjective Chief complaint: s/p CABG and AVR HPI: Pt reports better sleep last night, improved motor strength in left leg and able to exercsie more. Appetite good and hyponatremia normalized. Mina catheter yielding normal yellow ur ine. Will schedule voiding trial in AM Free Text Subj Notes Free Text Subj Notes: no acute event. no complaint today Review of Systems All systems rev neg: except as marked Objective General VS/I O: Vital Signs: Date Time Temp Pulse Resp B/P B/P Pulse O2 O2 F low FiO2 Mean Ox Delivery Rate 12/27 919 36.4 57 16 119/77 90.8 98 Room air 12/27 411 36.6 64 18 157/89 112.1 98 Room air 12/26 2015 36.8 67 18 131/73 92.3 97 Room air 12/25 1548 36.7 63 18 119/61 80.5 96 Room air 24 hour I O ending at 0700: 12/26 0700 12/25 1900 Intake Total 480 Output Total 750 Balance -750 480 Intake, Oral 480 Number 0 Bowel Movements Number 5 3 Incontinent Voids Number Voids 3 0 Output, Urine 750 PATIENT WEIGHT: Weight (lb): 238 Weight (oz): 5.12 Weight (kg): 108.100 Medications: Active Meds + DC'd Last 24 Hrs Zolpidem Tartrate (AMBIEN (C-IV)) 5 MG BEDTIME P RN PRN PO Melatonin (MELATONIN) 3 MG BEDTIME PO Warfarin Sodium (COUMADIN) 10 MG QPM PO (CKD) Lisinopril (PRINIVIL) 20 MG DAILY PO Insulin Glargine (Lantus/Semglee) 30 UNITS BEDTI ME SUBQ Lidocaine HCl (Glydo 2% JELLY) 1 APPLIC 5XDAY TO PICAL Insulin Human Lispro (HumaLOG) MEDIUM DOSE SLIDI NG SCALE AC HS SUBQ Clopidogrel Bisulfate (PLAVIX) 75 MG DAILY PO Levothyroxine Sodium (Synthroid) 125 MCG DAILY P O Mmzwh-0-Nkul Ethyl Esters (LOVAZA) 1 GM DAILY PO (CKD) Aspirin (ASPIRIN EC) 81 MG BEDTIME PO Atorvastatin Calcium (LIPITOR) 80 MG BEDTIME PO Carvedilol (COREG) 6.25 MG Q12HR PO Docusate Sodium (COLACE) 100 MG BID PO Famotidine (PEPCID) 20 MG BID PO Fenofibrate (TRICOR) 108 MG BEDTIME PO Ondansetron HCl (ZOFRAN ODT) 4 MG Q6H PRN PRN PO Acetaminophen (TYLENOL) 650 MG Q4H PRN PRN PO Dextrose/Water (DEXTROSE 50% IN WATER) 12.5 GM A SDIR PRN IV Dextrose/Water (DEXTROSE 50% IN WATER) 25 GM ASD IR PRN IV Hydrocodone Bitart/Acetaminophen (NORCO 5/325 TA BLET (C-II)) 1 TAB Q6H PRN PRN PO Bisacodyl (DULCOLAX) 5 MG BID PRN PRN PO Bisacodyl (BISACODYL SUPP) 10 MG DAILY PRN PRN R ECTAL Docusate Sodium (COLACE) 100 MG BID PRN PRN PO Magnesium Hydroxide (MILK OF MAGNESIA) 30 ML MICHA LY PRN PRN PO Physical Exam Head/Eyes: atraumatic, normal eyelids/periorb., normocephalic ENT: normal dentition, normal ear left, normal e ar right, normal nose Neck: supple/no meningismus, no masses or swelli ng Cardiovascular: normal heart sounds, regular rat e rhythm, sternotomy wound clean and dried without discharge Respiratory: clear to auscultation, no distress Abdomen: non-tender, normal bowel sounds , soft, no distention, no guarding, no mass/organomegaly, no rebound Extremities: no edema, not able to raise LLE Neuro/CUTTER WOODWIND REEDS: alert, oriented X 3, mild left leg weakness, but able to lift off bed against gravity. Motor strength much improved. Considered stroke alert: yes Skin: dry, normal temperature Psychiatry: normal affect, normal judgment/insig ht, normal mood Results Findings/Data: Laboratory Tests 12/26 12/26 12/26 12/25 12/25 1155 0701 0427 2014 170 Chemistry Sodium (137 - 145 MMOL/L) 140 Potassium (3.5 - 5.1 MMOL/L) 4.8 Chloride (98 - 107 MMOL/L) 106 Carbon Dioxide (22 - 30 MMOL/L) 25 Anion Gap (14 - 24 MMOL/L) 14 BUN (9 - 20 MG/DL) 31 H Creatinine (0.66 - 1.25 MG/DL) 1.30 H Glomerular Filtr Rate 55 Glucose (74 - 106 MG/DL) 123 H POC Glucose (60 - 99 MG/DL) 113 H 110 H 145 H 1 48 H Calcium (8.4 - 10.2 MG/DL) 9.2 Laboratory Tests 12/26 0521 Coagulation INR (0.86 - 1.14) 2.7 H PT Patient/Control Mix (9.4 - 12.7 SECONDS) 30. 9 H Diagnosis, Assessment Plan Problem List/A P: 1. S/P AVR (aortic valve replacement) 2. S/P CABG x 4 3. Right pontine stroke 4. Acute left-sided weakness 5. Diabetes insipidus 6. HTN (hypertension), benign 7. DM2 (diabetes mellitus, type 2) 8. Thoracic aortic aneurysm, without rupture 9. Hyponatremia Free Text DxA P Notes Free text DxA P notes: 1. S/P AVR (aortic valve replacement) Post-op pain controlled. Anticoagulation with w arfarin 10 mg QPM. INR 2.3 goal INR 2-3 2. S/P CABG x 4 Continue current meds. CVS following. Sternotom y wound dried and clean 3. 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 DM2 (diabetes mellitus, type 2) Continue Lantus 30u HS, and MDSSI. D/c glipizide to reduce risk of hypoglycemia 6. HTN (hypertension), benign - episode of hypotension, continue coreg and li sinopril. d/c amlodipine 7. Thoracic aortic aneurysm, without rupture - stable TAA at 4.5 cm 8. Diabetes insipidus DDAVP nasal spray discontin ued last 4 days, pt on fluid restriction but denies polydipsia 9. 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 Urinary retention, likely sequella of acute pontine stroke - Plan voiding trial Saturday. D/w Dr Ruiz Consultants: cardiovascular surgery, hospitalist , neurology DVT PPX: warfarin Continue rehab. Quality: Gen Med Crit Care VTE Prophylaxis VTE prophylaxis initiated: yes Current Medications Current medication review: I attest that the foregoing medication list in t he medical record is true, accurate, and complete to the best of my knowled ge. Advanced Care Plan 65 or Older Discussed with: patient (full code) Discussion included: code status (full code) Electronically Signed by Billy Maxwell MD on 2 at 1515 [facility] #:[id number] END OF REPORT 2021-12-26 15:06:00-00:00 [id number] [facility] [address] [place] [address] PATIENT NAME: GARCÍA MARRERO ADMIT DATE: 11/18 ACCOUNT NO: [id number] ROOM NO: Z.[facility] AGE: 66 REPORT TYPE: PROGRESS NOTE SEX: M ADMITTING PHYSICIAN:Mp Mendez MD ATTENDING PHYSICIAN:Mp Mendez MD DATE: 12/26/2021 Mr. Marrero is seen on for rehabilitation direction following an acute left hemiplegia of uncertain etiology, which occ urred within 48 hours of a quadruple aortocoronary artery bypass gr aft procedure and a concomitant aortic valve replacement with a bioprosthesis on 2021. The patient was seen by neurology, but a definite source of his hemipleg ia was not identified, but it was thought he might have figueroa d a small infarction in the right pontine area. The patient has had good neurological recovery and h reena has been making progress in mobility and self-care since coming to the [facility] rehabilitation unit. He has been medically followed by the [facility] italist Group and also by Dr. Luke Ruiz, urologist who began a trial of voi ding yesterday, which was successful and the Mina catheter has remained o ut and the patient is voiding regularly using the urinal at the [facility]. The patient was seen this afternoon in his room. He was awake and became alert after being aroused from a nap. Speech is intelligible and f luent. Thought content is reasonable, relevant, and appropriate. The patient is focused on going genesis e on 12/30/2021. At the present time, his temperature is normal at 36.6 degrees centigrade, pulse 64, respirations 18, blood press ure 119/77 with an oxygen saturation of 98% on room air. The patient has had a basic metabolic pa christianne done today, which shows normal GFR of 55 with a slightly elevated creatinine of 1.3 0 and an elevated BUN of 31. The patient's electrolytes are all withi n normal limits. His diabetes is under satisfactory control. The patient's prothrombin time today is therapeutic at 30.9 seconds with an INR of 2.7. The patient was seen by both occupational therapy and physical therapy yesterday and was r equiring moderate amount of verbal cues to find his midline and also cues fo r positioning. In physical therapy yesterday, the patie nt performed bilateral lower extremity strengthening exercises as well as static and dynamic standing exercises using the rolling walker and a mirror for visual feedback to maint ain upright posture. He also did training and functional transfers and was ab le to come from sit to stand with a rolling walker. He also did gait training with the NDT walker needing maximal assist of 1 person and then a second per son to follow up with the wheelchair as well as verbal cues to increase hi s base of support. He still tends to lean to the left, but was showing good improvement to the midline posture. In activities of daily living, the patient is now set up for feeding, independent in her oral hygi aleksander, max assist with toileting hygiene, supervision with upper body dressing and moderate assist for lower body dressing. He requires moderate to maximal assistance with bed mobility and transfers. This patient will continue w ith his present rehabilitation program at this time PATIENT NAME: GARCÍA MARRERO [id number] while his medical condition is closely monitored and appropriate intervention taken as indicated. Dictated By: Mp Mendez MD Date Dictated: 12/26/2021 15:06:17 Date Transcribed: 12/26/2021 15:17:45 [facility] Receipt ID: [id number] Authenticated by Mp Mendez MD On 09:39:42 AM Electronically Signed by Mp Mendez MD on at 0939 PATIENT NAME: GARCÍA MARRERO [id number] 2021-12-25 21:20:00-00:00 [id number] [place] [address] PATIENT NAME: GARCÍA MARRERO ADMIT DATE: 11/18 ACCOUNT NO: [id number] ROOM NO: [facility] AGE: 66 REPORT TYPE: PROGRESS NOTE SEX: M ADMITTING PHYSICIAN:Mp Mendez MD ATTENDING PHYSICIAN:Mp Mendez MD DATE: SUBJECTIVE: The patient was seen, chart reviewed . He has been doing okay. History of coronary artery bypass graft and also postop with some neurological issues. He also had urinary retention. PLAN: Today I was going to give him a voiding tr ial. We will see how he does. If he is able to void, we wi ll monitor him carefully and keep a close eye on his PVRs this week. Dictated By: Luke Ruiz MD Date Dictated: 12/25/2021 21:20:38 Date Transcribed: 12/25/2021 21:25:42 [facility] Receipt ID: [id number] Authenticated by Luke Ruiz MD On 04:22:30 PM Electronically Signed by Luke Ruiz MD on at 0422 PATIENT NAME: GARCÍA MARRERO [id number] 2021-12-25 17:15:00-00:00 [facility] ([facility] Hospitalist Progress Note REPORT#:[id number] REPORT STATUS: Signed DATE:12/25/21 TIME: 1714 PATIENT: GARCÍA MARRERO UNIT #: [id number] [facility] AGE: 66 SEX: M ATTEND: Royal Mendez MD ADM AUTHOR: Billy Maxwell MD * ALL edits or amendments must be made on the [employer]/computer document * Subjective Chief complaint: s/p CABG and AVR HPI: Pt reports better sleep last night, improved motor strength in left leg and able to exercsie more. Appetite good and hyponatremia normalized. Mina catheter yielding normal yellow ur ine. Will schedule voiding trial in AM Objective Physical Exam Head/Eyes: atraumatic, normal eyelids/periorb., normocephalic ENT: normal dentition, normal ear left, normal e ar right, normal nose Neck: supple/no meningismus, no masses or swelli ng Cardiovascular: normal heart sounds, regular rat e rhythm, sternotomy wound clean and dried without discharge Respiratory: clear to auscultation, no distress Abdomen: non-tender, normal bowel sounds , soft, no distention, no guarding, no mass/organomegaly, no rebound Extremities: no edema, not able to raise LLE Neuro/CUTTER WOODWIND REEDS: alert, oriented X 3, mild left leg weakness, but able to lift off bed against gravity. Motor strength much improved. Considered stroke alert: yes Skin: dry, normal temperature Psychiatry: normal affect, normal judgment/insig ht, normal mood Diagnosis, Assessment Plan Problem List/A P: 1. S/P AVR (aortic valve replacement) 2. S/P CABG x 4 3. Right pontine stroke 4. Acute left-sided weakness 5. Diabetes insipidus 6. HTN (hypertension), benign 7. DM2 (diabetes mellitus, type 2) 8. Thoracic aortic aneurysm, without rupture 9. Hyponatremia Free Text DxA P Notes Free text DxA P notes: 1. S/P AVR (aortic valve replacement) Post-op pain controlled. Anticoagulation with w arfarin 10 mg QPM. INR 2.3 goal INR 2-3 2. S/P CABG x 4 Continue current meds. CVS following. Sternotom y wound dried and clean 3. 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 DM2 (diabetes mellitus, type 2) Continue Lantus 30u HS, and MDSSI. D/c glipizide to reduce risk of hypoglycemia 6. HTN (hypertension), benign - episode of hypotension, continue coreg and li sinopril. d/c amlodipine 7. Thoracic aortic aneurysm, without rupture - stable TAA at 4.5 cm 8. Diabetes insipidus DDAVP nasal spray discontin ued last 4 days, pt on fluid restriction but denies polydipsia 9. 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 Urinary retention, likely sequella of acute pontine stroke - Plan voiding trial Saturday. D/w Dr Ruiz Consultants: cardiovascular surgery, hospitalist , neurology DVT PPX: warfarin Continue rehab. Quality: Gen Med Crit Care VTE Prophylaxis VTE prophylaxis initiated: yes Current Medications Current medication review: I attest that the foregoing medication list in t he medical record is true, accurate, and complete to the best of my knowled ge. Advanced Care Plan 65 or Older Discussed with: patient (full code) Discussion included: code status (full code) Electronically Signed by Billy Maxwell MD on 2 at 2220 [facility] #:[id number] END OF REPORT 2021-12-25 14:48:00-00:00 [id number] [facility] [address] [place] [address] PATIENT NAME: GARCÍA MARRERO ADMIT DATE: 11/18 ACCOUNT NO: [id number] ROOM NO: Z.318 AGE: 66 REPORT TYPE: PROGRESS NOTE SEX: M ADMITTING PHYSICIAN:Mp Mendez MD ATTENDING PHYSICIAN:Mp Mendez MD DATE: 12/25/2021 SUBJECTIVE: Mr. Marrero is seen on 12/25/2021 for rehabilitation direction following an acute left pascual plegia of uncertain etiology occurring shortly after a quadr[facility] a[facility]ary [facility] with an aortic valve replacement performed on 12/06/2021. The patient had neurodiagnostic workup, which did not reveal a defin ite source of his hemiplegia. The patient had rapid onset of hemiplegia, but has also had an excellent neurological motor return in the left arm and left leg as well. The patient i s making good progress in his rehabilitation at this time and he was seen today standing with the help of the parallel bars in the rehabilitation gym. The patient is being closely followed by the [facility]. Dr. 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 A brain MR I cannot be performed for 4 to 6 weeks after his bioprosthetic aortic valve placement a ccording to his surgeon, Dr. Aragon. The patient also has been exhibiting po lydipsia and polyuria and has been tried on DDAVP nasal spray, which has been stopped. The patient is on fluid restriction, but is not following the guid elines. The patient continues to have a hyponatremia. Today, his serum sodium has come back up to low normal at 137. The patient's renal function is showing mild elevation of the BUN with normal GFR and creatinine. In activities of daily living, the patie nt is at independent for oral hygiene, but still needing maximal assist with toileting hygiene, moderate assist with bathing, supervision with upper body dressing, a nd moderate assist with lower body dressing while footwear is also supervision. He has been requiring maximal assist for toileting hygiene and maximal assist with toilet transfers. Dr. Luke Ruiz urological strategy planning consultant has order ed a trial of voiding, which began this morning with discontinuation of the p atient's indwelling bladder catheter. This patient is presently scheduled for discharge home on 12/30/2021 with home health, rehabilitation services, visiting nurse, and a home health aide. No change in his rehabilitation program is indicate d at this time. Dictated By: Mp Mendez MD Date Dictated: 12/25/2021 14:48:56 Date Transcribed: 12/25/2021 15:21:34 MELLY/PHYLLIS PATIENT NAME: GARCÍA MARRERO [id number] Receipt ID: [id number] Authenticated by Mp Mendez MD On 09:43:00 AM Electronically Signed by Mp Mendez MD on at 0943 PATIENT NAME: GARCÍA MARRERO [id number] 2021-12-24 16:20:00-00:00 [facility] ([facility]) Hospitalist Progress Note REPORT#:[id number] REPORT STATUS: Signed DATE:12/24/21 TIME: 1620 PATIENT: GARCÍA MARRERO UNIT #: [id number] ROOM/BED: [facility] : 55 AGE: 66 SEX: M ATTEND: Royal Mendez MD ADM AUTHOR: Faustino Mercado MD * ALL edits or amendments must be made on the [employer]/computer document * Subjective Chief complaint: s/p CABG and AVR HPI: Pt reports better sleep last night, improved motor strength in left leg and able to exercsie more. Appetite good and hyponatremia normalized. Mina catheter yielding normal yellow ur ine. Will schedule voiding trial in AM Review of Systems Constitutional: Denies: chills, fatigue, fev er, generalized weakness, lethargy, malaise, recent wt loss, other. Respiratory: Denies: PHELPS (dyspnea on exertion), hemoptysis, n on productive cough, parox nocturnal dyspnea, pleurisy, pleuritic pain, pneumonia, productive cough (sputum ), SOB, wheezing, other. Cardiovascular: Denies: chest pain, PHELPS (dyspnea on exer tion), edema, orthopnea, palpitations, parox nocturnal dyspnea, other. All systems rev neg: except as marked Objective General VS/I O: Vital Signs: Date Time Temp Pulse Resp B/P B/P Pulse O2 O2 F low FiO2 Mean Ox Delivery Rate 12/24 1552 98.2 64 16 123/72 89.2 99 Room air 12/24 0720 98.8 64 16 134/77 95.9 99 Room air 12/23 2209 98.6 75 18 167/65 98.9 99 24 hour I O ending at 0700: 12/24 0700 12/23 1900 Intake Total 240 550 Output Total 500 1500 Balance -260 -950 Intake, Oral 240 550 Intake, Oral 0 Supplement Number 0 Bowel Movements Number 0 0 Incontinent Voids Number Voids 0 0 Output, Urine 500 1500 PATIENT WEIGHT: Weight (lb): 277 Weight (oz): 12.52 Weight (kg): 126.000 Medications: Active Meds + DC'd Last 24 Hrs Zolpidem Tartrate (AMBIEN (C-IV)) 5 MG BEDTIME P RN PRN PO Melatonin (MELATONIN) 3 MG BEDTIME PO Warfarin Sodium (COUMADIN) 10 MG QPM PO (CKD) Lisinopril (PRINIVIL) 20 MG DAILY PO Insulin Glargine (Lantus/Semglee) 30 UNITS BEDTI ME SUBQ Lidocaine HCl (Glydo 2% JELLY) 1 APPLIC 5XDAY TO PICAL Insulin Human Lispro (HumaLOG) MEDIUM DOSE SLIDI NG SCALE AC HS SUBQ Clopidogrel Bisulfate (PLAVIX) 75 MG DAILY PO Levothyroxine Sodium (Synthroid) 125 MCG DAILY P O Hgfxh-6-[id number] Ethyl Esters (LOVAZA) 1 GM DAILY PO (CKD) Aspirin (ASPIRIN EC) 81 MG BEDTIME PO Atorvastatin Calcium (LIPITOR) 80 MG BEDTIME PO Carvedilol (COREG) 6.25 MG Q12HR PO Docusate Sodium (COLACE) 100 MG BID PO Famotidine (PEPCID) 20 MG BID PO Fenofibrate (TRICOR) 108 MG BEDTIME PO Ondansetron HCl (ZOFRAN ODT) 4 MG Q6H PRN PRN PO Acetaminophen (TYLENOL) 650 MG Q4H PRN PRN PO Dextrose/Water (DEXTROSE 50% IN WATER) 12.5 GM A SDIR PRN IV Dextrose/Water (DEXTROSE 50% IN WATER) 25 GM ASD IR PRN IV Hydrocodone Bitart/Acetaminophen (NORCO 5/325 TA BLET (C-II)) 1 TAB Q6H PRN PRN PO Bisacodyl (DULCOLAX) 5 MG BID PRN PRN PO Bisacodyl (BISACODYL SUPP) 10 MG DAILY PRN PRN R ECTAL Docusate Sodium (COLACE) 100 MG BID PRN PRN PO Magnesium Hydroxide (MILK OF MAGNESIA) 30 ML MICHA LY PRN PRN PO Physical Exam General appearance: obese, alert, awake Head/Eyes: atraumatic, normal eyelids/periorb., normocephalic ENT: normal dentition, normal ear left, normal e ar right, normal nose Neck: supple/no meningismus, no masses or swelli ng Cardiovascular: normal heart sounds, regular rat e rhythm, sternotomy wound clean and dried without discharge Respiratory: clear to auscultation, no distress Abdomen: non-tender, normal bowel sounds , soft, no distention, no guarding, no mass/organomegaly, no rebound Extremities: no edema, not able to raise LLE Neuro/CUTTER WOODWIND REEDS: alert, oriented X 3, mild left leg weakness, but able to lift off bed against gravity. Motor strength much improved. Considered stroke alert: yes Skin: dry, normal temperature Psychiatry: normal affect, normal judgment/insig ht, normal mood Results Findings/Data: Laboratory Tests 12/24 12/24 12/24 12/24 12/23 1550 1124 0718 0419 2208 Chemistry Sodium (137 - 145 MMOL/L) 137 Potassium (3.5 - 5.1 MMOL/L) 4.3 Chloride (98 - 107 MMOL/L) 105 Carbon Dioxide (22 - 30 MMOL/L) 24 Anion Gap (14 - 24 MMOL/L) 12 L BUN (9 - 20 MG/DL) 23 H Creatinine (0.66 - 1.25 MG/DL) 1.20 Glomerular Filtr Rate > 60 Glucose (74 - 106 MG/DL) 122 H POC Glucose (60 - 99 MG/DL) 147 H 72 111 H 114 H Calcium (8.4 - 10.2 MG/DL) 9.3 12/23 1645 Chemistry POC Glucose (60 - 99 MG/DL) 209 H Laboratory Tests 12/24 0419 Coagulation INR (0.86 - 1.14) 2.3 H PT Patient/Control Mix (9.4 - 12.7 SECONDS) 25. 9 H Diagnosis, Assessment Plan Problem List/A P: 1. S/P AVR (aortic valve replacement) 2. S/P CABG x 4 3. Right pontine stroke 4. Acute left-sided weakness 5. Diabetes insipidus 6. HTN (hypertension), benign 7. DM2 (diabetes mellitus, type 2) 8. Thoracic aortic aneurysm, without rupture 9. Hyponatremia Free Text DxA P Notes Free text DxA P notes: 1. S/P AVR (aortic valve replacement) Post-op pain controlled. Anticoagulation with w arfarin 10 mg QPM. INR 1.7 goal INR 2-3 2. S/P CABG x 4 Continue current meds. CVS following. Sternotom y wound dried and clean 3. 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 DM2 (diabetes mellitus, type 2) Continue Lantus 30u HS, and MDSSI. D/c glipizide to reduce risk of hypoglycemia 6. HTN (hypertension), benign - episode of hypotension, continue coreg and li sinopril. d/c amlodipine 7. Thoracic aortic aneurysm, without rupture - stable TAA at 4.5 cm 8. Diabetes insipidus DDAVP nasal spray discontin ued last 4 days, pt on fluid restriction but denies polydipsia 9. 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 Urinary retention, likely sequella of acute pontine stroke - Plan voiding trial Saturday. D/w Dr Ruiz Consultants: cardiovascular surgery, hospitalist , neurology DVT PPX: warfarin Continue rehab. Quality: Gen Med Crit Care VTE Prophylaxis VTE prophylaxis initiated: yes Current Medications Current medication review: I attest that the foregoing medication list in t he medical record is true, accurate, and complete to the best of my knowled ge. Advanced Care Plan 65 or Older Discussed with: patient (full code) Discussion included: code status (full code) Electronically Signed by Faustino Mercado MD on at 1622 RPT #:[id number] END OF REPORT 2021-12-24 10:34:00-00:00 [id number] [place] [address] PATIENT NAME: GARCÍA MARRERO ADMIT DATE: 11/18 ACCOUNT NO: [id number] ROOM NO: [facility] AGE: 66 REPORT TYPE: PROGRESS NOTE SEX: M ADMITTING PHYSICIAN:Mp Mendez MD ATTENDING PHYSICIAN:Mp Mendez MD DATE: 12/22/2021 LABORATORY DATA: Sodium 136, potassium 4.6, BUN 22, creatinine 1.3, chloride 105. Urine osmolarity is 457. SUBJECTIVE: The patient was seen and examined, r esting comfortably, in no significant changes. No issues of nausea, vomiti ng, fevers, chills, shortness of breath, headache. Abdomen nondistended. at the bedside. ROS: othwersise negative on a 10 point scale koki n stated above Labs: Reviewed PHYSICAL EXAMINATION: VITAL SIGNS: Blood pressure is 86/42, pulse 58, temperature 97.9. HEAD AND FACE: Normal. NECK: No masses. CHEST: Symmetric chest wall. ABDOMEN: Nondistended. EXTREMITIES: No edema. NEUROLOGIC: Intact. CARDIOVASCULAR: Adequate cardiovascular perfusio n noted. HOSPITAL COURSE: The patient was still drinking fluids in excess of his minimal amount. MAR was reviewed. ASSESSMENT: Pituitary microadenoma with some earle ydipsia and polyuria status post stroke, status post coronary artery bypass graft both improving and recovering. Currently in rehabilitation. PLAN: The patient has been discontinued off the DDAVP. He is not able to limit his fluids, has few episodes of hyponatr emia despite counseling despite family reinforcement. At this time, the patient has been educated, the ____ on neurosurgery followup by the primary serv ice and Neurology as well as Endocrinology followup. From the renal standpoint, continue supportive care. I explained to the primary service this is like ly not nephrogenic as the patient responded to DDAVP quite well. This is likely partial DI as patient is able to maintain a serum sodium with water drinking. PATIENT NAME: GARCÍA MARRERO [id number] The patient does need outpatient management, janessa ner the better, the longer he waits, the more progressive it might get. Dictated By: Jhon Villegas MD Date Dictated: 12/24/2021 10:34:39 Date Transcribed: 12/24/2021 11:28:42 RP/EDSON Receipt ID: [id number] Authenticated and Edited by Jhon Villegas MD On 01/03/22 11:35:42 PM Electronically Signed by Jhon Villegas MD on at 1137 PATIENT NAME: GARCÍA MARRERO [id number] 2021-12-23 17:58:00-00:00 [facility] ([facility] Hospitalist Progress Note REPORT#:[id number] REPORT STATUS: Signed DATE:12/23/21 TIME: 1758 PATIENT: GARCÍA MARRERO UNIT #: [id number] ROOM/BED: [address] : 55 AGE: 66 SEX: M ATTEND: Royal Mendez MD ADM AUTHOR: Faustino Mercado MD * ALL edits or amendments must be made on the [employer]/computer document * Subjective Chief complaint: s/p CABG and AVR HPI: Pt reports better sleep last night, improved motor strength in left leg and able to exercsie more. Appetite good and hyponatremia normalized. Review of Systems Constitutional: Denies: chills, fatigue, fev er, generalized weakness, lethargy, malaise, recent wt loss, other. Respiratory: Denies: PHELPS (dyspnea on exertion), hemoptysis, n on productive cough, parox nocturnal dyspnea, pleurisy, pleuritic pain, pneumonia, productive cough (sputum ), SOB, wheezing, other. Cardiovascular: Denies: chest pain, PHELPS (dyspnea on exer tion), edema, orthopnea, palpitations, parox nocturnal dyspnea, other. All systems rev neg: except as marked Objective General VS/I O: Vital Signs: Date Time Temp Pulse Resp B/P B/P Pulse O2 O2 F low FiO2 Mean Ox Delivery Rate 12/23 1429 97.9 73 16 119/73 88.3 98 12/23 0634 98.2 61 16 145/72 96.3 97 12/23 0345 98.1 62 18 114/74 87.5 97 Room air 12/22 2046 98.2 64 18 129/77 94.1 98 Nasal cannula 24 hour I O ending at 0700: 12/23 0700 12/22 1900 Intake Total 400 450 Output Total 1999 1500 Balance -1600 -1050 Intake, Oral 400 450 Intake, Oral 0 Supplement Number 0 Bowel Movements Number 0 0 Incontinent Voids Number Voids 0 0 Output, Urine 1999 1500 PATIENT WEIGHT: Weight (lb): 277 Weight (oz): 12.52 Weight (kg): 126.000 Medications: Active Meds + DC'd Last 24 Hrs Zolpidem Tartrate (AMBIEN (C-IV)) 5 MG BEDTIME P RN PRN PO Melatonin (MELATONIN) 3 MG BEDTIME PO Warfarin Sodium (COUMADIN) 10 MG QPM PO (CKD) Lisinopril (PRINIVIL) 20 MG DAILY PO Insulin Glargine (Lantus/Semglee) 30 UNITS BEDTI ME SUBQ Lidocaine HCl (Glydo 2% JELLY) 1 APPLIC 5XDAY TO PICAL Insulin Human Lispro (HumaLOG) MEDIUM DOSE SLIDI NG SCALE AC HS SUBQ Clopidogrel Bisulfate (PLAVIX) 75 MG DAILY PO Levothyroxine Sodium (Synthroid) 125 MCG DAILY P O Zvzsz-5-Suei Ethyl Esters (LOVAZA) 1 GM DAILY PO (CKD) Aspirin (ASPIRIN EC) 81 MG BEDTIME PO Atorvastatin Calcium (LIPITOR) 80 MG BEDTIME PO Carvedilol (COREG) 6.25 MG Q12HR PO Docusate Sodium (COLACE) 100 MG BID PO Famotidine (PEPCID) 20 MG BID PO Fenofibrate (TRICOR) 108 MG BEDTIME PO Ondansetron HCl (ZOFRAN ODT) 4 MG Q6H PRN PRN P O Acetaminophen (TYLENOL) 650 MG Q4H PRN PRN PO Dextrose/Water (DEXTROSE 50% IN WATER) 12.5 GM A SDIR PRN IV Dextrose/Water (DEXTROSE 50% IN WATER) 25 GM DIR PRN IV Hydrocodone Bitart/Acetaminophen (NORCO 5/325 TA BLET (C-II)) 1 TAB Q6H PRN PRN PO Bisacodyl (DULCOLAX) 5 MG BID PRN PRN PO Bisacodyl (BISACODYL SUPP) 10 MG DAILY PRN PRN R ECTAL Docusate Sodium (COLACE) 100 MG BID PRN PRN PO Magnesium Hydroxide (MILK OF MAGNESIA) 30 ML MICHA LY PRN PRN PO Physical Exam General appearance: alert, awake Head/Eyes: atraumatic, normal eyelids/periorb., normocephalic ENT: normal dentition, normal ear left, normal e ar right, normal nose Neck: supple/no meningismus, no masses or swelli ng Cardiovascular: normal heart sounds, regular rat e rhythm, sternotomy wound clean and dried without discharge Respiratory: clear to auscultation, no distress Abdomen: non-tender, normal bowel sounds , soft, no distention, no guarding, no mass/organomegaly, no rebound Extremities: no edema, not able to raise LLE Neuro/CUTTER WOODWIND REEDS: alert, oriented X 3, mild left leg weakness, but able to lift off bed against gravity. Motor strength much improved. Considered stroke alert: yes Skin: dry, normal temperature Psychiatry: normal affect, normal judgment/insig ht, normal mood Results Findings/Data: Laboratory Tests 12/23 12/23 12/23 12/23 12/22 1645 1152 0620 0428 2118 Chemistry Sodium (137 - 145 MMOL/L) 138 Potassium (3.5 - 5.1 MMOL/L) 4.7 Chloride (98 - 107 MMOL/L) 103 Carbon Dioxide (22 - 30 MMOL/L) 27 Anion Gap (14 - 24 MMOL/L) 13 L BUN (9 - 20 MG/DL) 21 H Creatinine (0.66 - 1.25 MG/DL) 1.30 H Glomerular Filtr Rate 55 Glucose (74 - 106 MG/DL) 119 H POC Glucose (60 - 99 MG/DL) 209 H 120 H 104 H 1 09 H Calcium (8.4 - 10.2 MG/DL) 9.6 Laboratory Tests 12/23 0428 Coagulation INR (0.86 - 1.14) 1.8 H PT Patient/Control Mix (9.4 - 12.7 SECONDS) 20. 4 H Diagnosis, Assessment Plan Problem List/A P: 1. S/P AVR (aortic valve replacement) 2. S/P CABG x 4 3. Right pontine stroke 4. Acute left-sided weakness 5. Diabetes insipidus 6. HTN (hypertension), benign 7. DM2 (diabetes mellitus, type 2) 8. Thoracic aortic aneurysm, without rupture 9. Hyponatremia Free Text DxA P Notes Free text DxA P notes: 1. S/P AVR (aortic valve replacement) Post-op pain controlled. Anticoagulation with w arfarin 10 mg QPM. INR 1.7 goal INR 2-3 2. S/P CABG x 4 Continue current meds. CVS following. Sternotom y wound dried and clean 3. 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 DM2 (diabetes mellitus, type 2) Continue Lantus 30u HS, and MDSSI. D/c glipizide to reduce risk of hypoglycemia 6. HTN (hypertension), benign - episode of hypotension, continue coreg and li sinopril. d/c amlodipine 7. Thoracic aortic aneurysm, without rupture - stable TAA at 4.5 cm 8. Diabetes insipidus DDAVP nasal spray discontin ued last 4 days, pt on fluid restriction but denies polydipsia 9. 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 Urinary retention, likely sequella of acute pontine stroke - Plan voiding trial Saturday. D/w Dr Ruiz Consultants: cardiovascular surgery, hospitalist , neurology DVT PPX: warfarin Continue rehab. Quality: Gen Med Crit Care VTE Prophylaxis VTE prophylaxis initiated: yes Current Medications Current medication review: I attest that the foregoing medication list in t he medical record is true, accurate, and complete to the best of my knowled ge. Advanced Care Plan 65 or Older Discussed with: patient (full code) Discussion included: code status (full code) Electronically Signed by Faustino Mercado MD on at 1801 [facility] #:[id number] END OF REPORT 2021-12-22 18:21:00-00:00 [id number] [address] PATIENT NAME: GARCÍA MARRERO ADMIT DATE: 11/18 ACCOUNT NO: [id number] ROOM NO: [facility] AGE: 66 REPORT TYPE: PROGRESS NOTE SEX: M ADMITTING PHYSICIAN:Mp Mendez MD ATTENDING PHYSICIAN:Mp Mendez MD DATE: SUBJECTIVE: The patient was seen, chart reviewed, still he seems to be doing a lot better. He states that his motor strength is starting to slowly improve. His catheter has been draining pretty well witho ut having any acute distress. He is currently resting comfortably. He is afebr ile. PHYSICAL EXAMINATION: VITAL SIGNS: Stable. Blood pressure is 99/54. HEENT: Atraumatic, normocephalic. ABDOMEN: Soft. GENITOURINARY: He has Mina in place with ____. LABORATORY DATA: His creatinine is 1.3. IMPRESSION: This is a 66-year-old with a history of CABG, also with a pontine cerebrovascular accident, ac [place] left-sided weakness, also with urinary retention and neurogenic bladder. PLAN: As noted, I discussed with ____. We wi ll go ahead and plan to give him a voiding trial next wee k and see how he does. ____ needing an intermittent catheterization, then further workup with urodyn amics, cystoscopy. We will follow along. Dictated By: Luke Ruiz MD Date Dictated: 12/22/2021 18:21:56 Date Transcribed: 12/22/2021 21:36:48 SELMA/CHARBEL/DUNG Receipt ID: [id number] Authenticated by Luke Ruiz MD On 09:22:12 PM Electronically Signed by Luke Ruiz MD on at 0922 PATIENT NAME: GARCÍA MARRERO [id number] 2021-12-22 15:14:00-00:00 [facility] ([facility] Hospitalist Progress Note REPORT#:[id number] REPORT STATUS: Signed DATE:12/22/21 TIME: 1514 PATIENT: GARCÍA MARRERO UNIT #: [id number] ROOM/BED: [address] : 55 AGE: 66 SEX: M ATTEND: Royal Mendez MD ADM AUTHOR: Faustino Mercado MD * ALL edits or amendments must be made on the [employer]/computer document * Subjective Chief complaint: s/p CABG and AVR HPI: Pt seen with at bedside , reports significant improvement in motor strength of his left leg. He's able to lift his whole lef t leg off bed and walked 40 steps today during PT. He's still c/o tingling sensation at bottom of left foot when resting. Hyponatremia also improved to 136 without increased thirst Review of Systems Constitutional: Denies: chills, fatigue, fev er, generalized weakness, lethargy, malaise, recent wt loss, other. Respiratory: Denies: PHELPS (dyspnea on exertion), hemoptysis, n on productive cough, parox nocturnal dyspnea, pleurisy, pleuritic pain, pneumonia, productive cough (sputum ), SOB, wheezing, other. Cardiovascular: Denies: chest pain, PHELPS (dyspnea on exer tion), edema, orthopnea, palpitations, parox nocturnal dyspnea, other. GI: Denies: abdominal pain, anorexia, constipation, diarrhea, dysphagia, GERD, hematemesis, hematochezia, h iatal hernia, melena, nausea, rectal pain, vomiting, other. All systems rev neg: except as marked Objective General VS/I O: Vital Signs: Date Time Temp Pulse Resp B/P B/P Pulse O2 O2 F low FiO2 Mean Ox Delivery Rate 12/22 730 97.9 58 20 86/42 56.5 87 12/22 437 97.9 59 16 122/78 92.7 95 Room air 12/22 1947 99.0 70 16 119/49 72.2 96 Room air 12/21 1627 98.2 61 18 99/54 69.3 97 Room air 24 hour I O ending at 0700: 12/22 0700 12/21 1900 Intake Total 600 700 Output Total 1999 1300 Balance -1400 -600 Intake, Oral 600 700 Number 1 2 Bowel Movements Number 0 0 Incontinent Voids Number Voids 0 0 Output, Urine 1999 1300 PATIENT WEIGHT: Weight (lb): 277 Weight (oz): 12.52 Weight (kg): 126.000 Medications: Active Meds + DC'd Last 24 Hrs Zolpidem Tartrate (AMBIEN (C-IV)) 5 MG BEDTIME P RN PRN PO Melatonin (MELATONIN) 3 MG BEDTIME PO Warfarin Sodium (COUMADIN) 10 MG QPM PO (CKD) Amlodipine Besylate (NORVASC TAB) 5 MG DAILY PO (DC) Lisinopril (PRINIVIL) 20 MG DAILY PO Insulin Glargine (Lantus/Semglee) 30 UNITS BEDTI ME SUBQ Lidocaine HCl (Glydo 2% JELLY) 1 APPLIC 5XDAY TO PICAL Insulin Human Lispro (HumaLOG) MEDIUM DOSE SLIDI NG SCALE AC HS SUBQ Clopidogrel Bisulfate (PLAVIX) 75 MG DAILY PO Levothyroxine Sodium (Synthroid) 125 MCG DAILY P O Onowg-1-Zvdw Ethyl Esters (LOVAZA) 1 GM DAILY PO (CKD) Aspirin (ASPIRIN EC) 81 MG BEDTIME PO Atorvastatin Calcium (LIPITOR) 80 MG BEDTIME PO Carvedilol (COREG) 6.25 MG Q12HR PO Docusate Sodium (COLACE) 100 MG BID PO Famotidine (PEPCID) 20 MG BID PO Fenofibrate (TRICOR) 108 MG BEDTIME PO Ondansetron HCl (ZOFRAN ODT) 4 MG Q6H PRN PRN PO Acetaminophen (TYLENOL) 650 MG Q4H PRN PRN PO Dextrose/Water (DEXTROSE 50% IN WATER) 12.5 GM ASDIR PRN IV Dextrose/Water (DEXTROSE 50% IN WATER) 25 GM ASD IR PRN IV Hydrocodone Bitart/Acetaminophen (NORCO 5/325 TA BLET (C-II)) 1 TAB Q6H PRN PRN PO Bisacodyl (DULCOLAX) 5 MG BID PRN PRN PO Bisacodyl (BISACODYL SUPP) 10 MG DAILY PRN PRN R ECTAL Docusate Sodium (COLACE) 100 MG BID PRN PRN PO Magnesium Hydroxide (MILK OF MAGNESIA) 30 ML MICHA LY PRN PRN PO Physical Exam General appearance: alert, awake, conversational , mental status normal Head/Eyes: atraumatic, normal eyelids/periorb., normocephalic ENT: normal dentition, normal ear left, normal e ar right, normal nose Neck: supple/no meningismus, no masses or swelli ng Cardiovascular: normal heart sounds, regular rat e rhythm, sternotomy wound clean and dried without discharge Respiratory: clear to auscultation, no distress Abdomen: non-tender, normal bowel sounds , soft, no distention, no guarding, no mass/organomegaly, no rebound Extremities: no edema, not able to raise LLE Neuro/CUTTER WOODWIND REEDS: alert, oriented X 3, mild left leg weakness, but able to lift off bed against gravity. Motor strength much improved. Considered stroke alert: yes Skin: dry, normal temperature Psychiatry: normal affect, normal judgment/insig ht, normal mood Results Findings/Data: Laboratory Tests 12/22 12/22 12/22 12/22 12/21 1133 0729 0427 0416 1947 Chemistry Sodium (137 - 145 MMOL/L) 136 L Potassium (3.5 - 5.1 MMOL/L) 4.6 Chloride (98 - 107 MMOL/L) 105 Carbon Dioxide (22 - 30 MMOL/L) 22 Anion Gap (14 - 24 MMOL/L) 14 BUN (9 - 20 MG/DL) 22 H Creatinine (0.66 - 1.25 MG/DL) 1.30 H Glomerular Filtr Rate 55 Glucose (74 - 106 MG/DL) 105 POC Glucose (60 - 99 MG/DL) 147 H 119 H 96 178 H Calcium (8.4 - 10.2 MG/DL) 9.0 12/21 1637 Chemistry POC Glucose (60 - 99 MG/DL) 122 H Laboratory Tests 12/22 0427 Coagulation INR (0.86 - 1.14) 1.7 H PT Patient/Control Mix (9.4 - 12.7 SECONDS) 18. 8 H Diagnosis, Assessment Plan Problem List/A P: 1. S/P AVR (aortic valve replacement) 2. S/P CABG x 4 3. Right pontine stroke 4. Acute left-sided weakness 5. Diabetes insipidus 6. HTN (hypertension), benign 7. DM2 (diabetes mellitus, type 2) 8. Thoracic aortic aneurysm, without rupture 9. Hyponatremia Free Text DxA P Notes Free text DxA P notes: 1. S/P AVR (aortic valve replacement) Post-op pain controlled. Anticoagulation with w arfarin 10 mg QPM. INR 1.7 goal INR 2-3 2. S/P CABG x 4 Continue current meds. CVS following. Sternotom y wound dried and clean 3. 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 DM2 (diabetes mellitus, type 2) Continue Lantus 30u HS, and MDSSI. D/c glipizide to reduce risk of hypoglycemia 6. HTN (hypertension), benign - episode of hypotension, continue coreg and li sinopril. d/c amlodipine 7. Thoracic aortic aneurysm, without rupture - stable TAA at 4.5 cm 8. Diabetes insipidus DDAVP nasal spray discontin ued last 4 days, pt on fluid restriction but denies polydipsia 9. 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 Urinary retention, likely sequella of acute pontine stroke - Plan voiding trial Saturday. D/w Dr Ruiz Consultants: cardiovascular surgery, hospitalist , neurology DVT PPX: warfarin Continue rehab. Quality: Gen Med Crit Care VTE Prophylaxis VTE prophylaxis initiated: yes Current Medications Current medication review: I attest that the foregoing medication list in t he medical record is true, accurate, and complete to the best of my knowled ge. Advanced Care Plan 65 or Older Discussed with: patient (full code) Discussion included: code status (full code) Electronically Signed by Faustino Mercado MD on at 1527 [facility] #:[id number] END OF REPORT 2021-12-22 13:13:00-00:00 [id number] [address] PATIENT NAME: GARCÍA MARRERO ADMIT DATE: 11/18 ACCOUNT NO: [id number] ROOM NO: Z.318 AGE: 66 REPORT TYPE: PROGRESS NOTE SEX: M ADMITTING PHYSICIAN:Mp Mendez MD ATTENDING PHYSICIAN:Mp Mendez MD DATE: 12/22/2021 Mr. Marrero is seen on for rehabilitation direction following an acute left hemiplegia of uncertain etiology, shortly a fter undergoing a quadruple aortocoronary artery bypass graft surgery and an aortic valve replacement with a bioprosthesis on 12/06/2021. The patient had a n eurological consultation and diagnostic workup, which did not reveal a defini te source of his hemiplegia. The patient had improvement in motor function in both the upper and lower extremities and has a left h emiparesis, but he is showing significant functional deficits, which have resulte d in impaired performance in mobility and activities of daily living. The patient was seen today returning from the habilitation gym where he had completed his physical thera py this morning. He was up in the wheelchair, alert and oriented. His vital signs today showed a tem perature of 36.6 degrees centigrade, pulse 58, respir ations 20, blood pressure 86/42 having dropped from 122/78 early this morning. This patient is being closely followed by his [place] hospitalist, the [facility] and is also f ollowed by Dr. Jhon Villegas, yard stocker because of polydipsia and polyuria with hyponatremia. In [facility], Dr. Aidee Armstrong is consulting tutoring manager, has been checking on m as has his cardiovascular surgeon, Dr. Wil Aragon. He has also just had a consultation from Dr. Luke Ruiz at my request to evaluate his ac [place] urinary retention, which developed following the aortocoronary ar kate bypass graft surgery. Dr. Ruiz felt the patient's urinary retention was multifa ctorial and he recommended leaving the Mina catheter in place for now. He discussed this in depth with the patient and his . Dr. Ruiz pr efers to defer a voiding trial at this time until the patient has a chieved greater functional performance. Dr. Ruiz did not rule out intermittent catheterization as a method of managing the patient's bladder dysfunction. This patient was seen by spe ech therapy today and the speech therapist felt the patient could benefit from up to 2 visits to be given a home program and instruction in same. The pat jazmine's mild decrease in cognitive function does not appear to impair communication. Occupati onal therapy saw the patient yesterday and noted that he tolerated the session fairly taking rest breaks as required. He demonstrated impaired fun ctional memory and also showed increased functional mobility and bilateral coordination skills. The patient had no complaints of pain yesterday and he is lef t in bed with the bed alarm on and call light within reach. The patient's performance in mobility is still quite impaired. He is requiring total assistance w ith toileting hygiene and toilet transfers and total PATIENT NAME: GARCÍA MARRERO [id number] assist with bed mobility; however, he figueroa s reached set up with feeding and oral hygiene while he is total assist with bathing an d moderate assist with upper body dressing, total assist with lower body dres sing and total assist with footwear. He will continue on with his present r ehabilitation program at this time while his medical condition continues to be closely monitored and appropriate intervention taken as needed to prev ent any interruption of his rehabilitation program. Dictated By: Mp Mendez MD Date Dictated: 12/22/2021 13:13:26 Date Transcribed: 12/22/2021 13:58:34 MELLY/TIMOTEO Receipt ID: [id number] Authenticated by Mp Mendez MD On 09:53:12 PM Electronically Signed by Mp Mendez MD on at 0953 PATIENT NAME: GARCÍA MARRERO [id number] 2021-12-22 12:57:00-00:00 [facility] ([facility] Cardiovascular Surgery Prog REPORT#:[id number] REPORT STATUS: Signed DATE:12/22/21 TIME: 1257 PATIENT: GARCÍA MARRERO UNIT #: [id number] ROOM/BED: [address] : 55 AGE: 66 SEX: M ATTEND: Royal Mendez MD ADM AUTHOR: Irene Gonzalez * ALL edits or amendments must be made on the [employer]/computer document * General Status post: ACB x 4 Subjective Patient reports: No: complaints. Nursing reports: No: complaints. Comments: The patient is seen at [facility], he is able to lift his left leg today and states that he ambulated about 40 steps with PT today Review of Systems Constitutional: Reports: generalized weakness. Denies: chills, f atigue, fever. Respiratory: Denies: SOB. Cardiovascular: Denies: chest pain. Neuro: Reports: weakness (left lower extremity). Objective General VS/I O: Last Documented: Result Date Time Pulse Ox 87 12/22 730 B/P 86/42 12/22 730 B/P Mean 56.5 12/22 730 Temp 36.6 12/22 730 Pulse 58 12/22 730 Resp 20 12/22 730 O2 Delivery Room air 12/22 437 24 hour I O ending at 0700: 12/22 1900 Intake Total 600 700 Output Total 2000 1300 Balance -1400 -600 Intake, Oral 600 700 Number 1 2 Bowel Movements Number 0 0 Incontinent Voids Number Voids 0 0 Output, Urine 1999 1300 PATIENT WEIGHT: Weight (lb): 277 Weight (oz): 12.52 Weight (kg): 126.000 Medications: Active Meds + DC'd Last 24 Hrs Zolpidem Tartrate (AMBIEN (C-IV)) 5 MG BEDTIME P RN PRN PO Melatonin (MELATONIN) 3 MG BEDTIME PO Warfarin Sodium (COUMADIN) 10 MG QPM PO (CKD) Amlodipine Besylate (NORVASC TAB) 5 MG DAILY PO Lisinopril (PRINIVIL) 20 MG DAILY PO Insulin Glargine (Lantus/Semglee) 30 UNITS BEDTI ME SUBQ Lidocaine HCl (Glydo 2% JELLY) 1 APPLIC 5XDAY TO PICAL Insulin Human Lispro (HumaLOG) MEDIUM DOSE SLIDI NG SCALE AC HS SUBQ Clopidogrel Bisulfate (PLAVIX) 75 MG DAILY PO Levothyroxine Sodium (Synthroid) 125 MCG DAILY P O Zgwxy-8-Hhbl Ethyl Esters (LOVAZA) 1 GM DAILY PO (CKD) Aspirin (ASPIRIN EC) 81 MG BEDTIME PO Atorvastatin Calcium (LIPITOR) 80 MG BEDTIME PO Carvedilol (COREG) 6.25 MG Q12HR PO Docusate Sodium (COLACE) 100 MG BID PO Famotidine (PEPCID) 20 MG BID PO Fenofibrate (TRICOR) 108 MG BEDTIME PO Ondansetron HCl (ZOFRAN ODT) 4 MG Q6H PRN PRN PO Acetaminophen (TYLENOL) 650 MG Q4H PRN PRN PO Dextrose/Water (DEXTROSE 50% IN WATER) 12.5 GM A SDIR PRN IV Dextrose/Water (DEXTROSE 50% IN WATER) 25 GM ASD IR PRN IV Hydrocodone Bitart/Acetaminophen (NORCO 5/325 TA BLET (C-II)) 1 TAB Q6H PRN PRN PO Bisacodyl (DULCOLAX) 5 MG BID PRN PRN PO Bisacodyl (BISACODYL SUPP) 10 MG DAILY PRN PRN R ECTAL Docusate Sodium (COLACE) 100 MG BID PRN PRN PO Magnesium Hydroxide (MILK OF MAGNESIA) 30 ML MICHA LY PRN PRN PO Dietitian nutrition assessment The data set between the solid lines has been im ported from the dietitian's assessment. BMI Calculated: 37.7 Nutrition related diagnosis: Obese Nutrition diagnosis details: BMI 30-39.9 Nutrition problem: INCREASED NUTRIENT NEEDS Nutrition etiology: INCREASED NUTRIENT DEMAND Nutrition signs and symptoms: PT S/P CABG Nutrition prescription: - CONT DIABETIC DIET WIT H 5 CHO/SERVING AND EASY-TO- CHEW TEXTURES - PROVIDE GLUCERNA BID TO HELP PT BETTER MEET NUTRITIONAL NEEDS Dietitian name: Fariha Aguilera, MS, RD, LDN Assessment completed: 12/18/21 Nutrition provider diagnosis: obese Review of dietitian's assessment: reviewed and a gree Physical Exam General appearance: alert, awake, oriented, no a cute distress Wound/incision: Location: median sternotomy, right lower extrem ity Site condition: dressing clean dry, incision in tact, no drainage, no erythema, Sternum stable Neck: non-tender, no masses or swelling Cardiovascular: BP/pulses equal bilat., normal h eart sounds, regular rate rhythm Respiratory: aerating well Abdomen: soft, non-tender, normal bowel sounds, no distention Extremities: no edema Neuro/CUTTER WOODWIND REEDS: alert, oriented X 3, pt. unable to li ft up his left foot Considered stroke alert: yes Results Findings/Data: Laboratory Tests 12/22 12/22 12/22 12/22 12/21 1133 0729 0427 0416 1947 Chemistry Sodium (137 - 145 MMOL/L) 136 L Potassium (3.5 - 5.1 MMOL/L) 4.6 Chloride (98 - 107 MMOL/L) 105 Carbon Dioxide (22 - 30 MMOL/L) 22 Anion Gap (14 - 24 MMOL/L) 14 BUN (9 - 20 MG/DL) 22 H Creatinine (0.66 - 1.25 MG/DL) 1.30 H Glomerular Filtr Rate 55 Glucose (74 - 106 MG/DL) 105 POC Glucose (60 - 99 MG/DL) 147 H 119 H 96 178 H Calcium (8.4 - 10.2 MG/DL) 9.0 12/21 12/21 1637 1400 Chemistry Sodium (137 - 145 MMOL/L) 126 L Potassium (3.5 - 5.1 MMOL/L) 4.3 Chloride (98 - 107 MMOL/L) 94 L Carbon Dioxide (22 - 30 MMOL/L) 24 Anion Gap (14 - 24 MMOL/L) 12 L BUN (9 - 20 MG/DL) 24 H Creatinine (0.66 - 1.25 MG/DL) 1.20 Glomerular Filtr Rate > 60 Glucose (74 - 106 MG/DL) 136 H POC Glucose (60 - 99 MG/DL) 122 H Calcium (8.4 - 10.2 MG/DL) 8.6 Laboratory Tests 12/22 0427 Coagulation INR (0.86 - 1.14) 1.7 H PT Patient/Control Mix (9.4 - 12.7 SECONDS) 18. 8 H Diagnosis, Assessment Plan Free Text A P: Pt. with CAD S/p ACB x 4 with AVR Pituitary mass Diabetes Hypertension Hyperlipidemia Acute left sided weakness-continues to improve d aily He is able to move his left foot and leg today a nd was able to am PLAN: Continue with warfarin Continue with rehab 12/21/21: Continue with warfarin Continue with rehab at 1306 at 1535 [facility] #:[id number] END OF REPORT 2021-12-21 21:06:00-00:00 [id number] [place] [address] PATIENT NAME: GARCÍA MARRERO ADMIT DATE: 11/18 ACCOUNT NO: [id number] ROOM NO: Z.318 AGE: 66 REPORT TYPE: CONSULTATION REPORT SEX: M ADMITTING PHYSICIAN:Mp Mendez MD ATTENDING PHYSICIAN:Mp Mendez MD CONSULTATION DATE: HISTORY OF PRESENT ILLNESS: The patient is a 66- year-old with a history of coronary artery disease and he has undergone multiple coronary stent placements. He had a coronary artery bypass graft on the November and postoperatively, he had some issues with neurolo gical problems. They were concerned that he might have a CVA or an ischemi c stroke. He is currently now on the rehab floor. He has been having problems voiding and they ended up putting a Mina catheter as he was in urinary retention. As said before, he has not really had much voiding problems except afte r this CABG and his postoperative course. The patient does have a hi story of diabetes. PAST MEDICAL HISTORY: Hypertension, diabetes, hy perlipidemia, hypothyroidism, coronary artery disease. PAST SURGICAL HISTORY: Carpal tunnel releases, k nee surgeries, and CABG. SOCIAL HISTORY: No tobacco. No alcohol. MEDICATIONS: Please see his MAR. REVIEW OF SYSTEMS: Positive for neuro. Negative for psych. Positive for musculoskeletal. PHYSICAL EXAMINATION: GENERAL: This is a male, does not appear in any distress. VITAL SIGNS: He is afebrile. Vital signs stable. HEENT: Atraumatic, normocephalic. ABDOMEN: Soft. GENITOURINARY: He has got the Mina in place wit h some pretty clear urine. IMPRESSION: This is a 66-yea r-old with a history of coronary artery disease and a left hemiplegia and what appears to be urinary retention, probably multifactorial with the recent surgery and also with the recent neurological problems, I think at this point we would leave t he Mina in place. We had a long discussion with the fam chelsie. Once he starts to improve a little bit, we can go ahead and give him a void ing trial. Obviously, if that fails, he will end up needing intermittent catheterization, but for th e time we will follow up with the catheter. Dictated By: Luke Ruiz MD PATIENT NAME: GARCÍA MARRERO [id number] Date Dictated: 12/21/2021 21:06:31 Date Transcribed: 12/21/2021 23:50:35 [facility]/S Receipt ID: [id number] Authenticated by Luke Ruiz MD On 06:26:53 PM Electronically Signed by Luke Ruiz MD on at 0626 PATIENT NAME: GARCÍA MARRERO [id number] 2021-12-21 18:23:00-00:00 [facility] Hospitalist Progress Note REPORT#:[id number] REPORT STATUS: Signed DATE:12/21/21 TIME: 1822 PATIENT: GARCÍA MARRERO UNIT #: [id number] ROOM/BED: [address] : 55 AGE: 66 SEX: M ATTEND: Royal Mendez MD ADM AUTHOR: Faustino Mercado MD * ALL edits or amendments must be made on the [employer]/computer document * Subjective Chief complaint: s/p CABG and AVR HPI: Pt seen with at bedside , continue to improve in motor strength of his LLE. Pt has intermittent episode hypoglycemia with FS BG 70s. BP stable. Hyponatremia stable at 126. Pt denies any increa sed thirst and has been compliant with fluid restriction to 1800 ml norma y Review of Systems Constitutional: Denies: chills, fatigue, fev er, generalized weakness, lethargy, malaise, recent wt loss, other. Respiratory: Denies: PHELPS (dyspnea on exertion), hemoptysis, n on productive cough, parox nocturnal dyspnea, pleurisy, pleuritic pain, pneumonia, productive cough (sputum ), SOB, wheezing, other. Cardiovascular: Denies: chest pain, PHELPS (dyspnea on exer tion), edema, orthopnea, palpitations, parox nocturnal dyspnea, other. All systems rev neg: except as marked Objective General VS/I O: Vital Signs: Date Time Temp Pulse Resp B/P B/P Pulse O2 O2 F low FiO2 Mean Ox Delivery Rate 12/21 1627 98.2 61 18 99/54 69.3 97 Room air 12/21 0440 97.9 60 16 125/66 0.0 97 12/20 1956 98.2 63 18 114/65 81.3 99 24 hour I O ending at 0700: 12/21 0700 12/20 1900 Intake Total 300 Output Total 1500 Balance -1200 Intake, Oral 300 Number 2 Bowel Movements Number 0 Incontinent Voids Number Voids 0 Output, Stool 0 Output, Urine 1500 PATIENT WEIGHT: Weight (lb): 277 Weight (oz): 12.52 Weight (kg): 126.000 Medications: Active Meds + DC'd Last 24 Hrs Zolpidem Tartrate (AMBIEN (C-IV)) 5 MG BEDTIME P RN PRN PO Melatonin (MELATONIN) 3 MG BEDTIME PO Warfarin Sodium (COUMADIN) 10 MG QPM PO (CKD) Amlodipine Besylate (NORVASC TAB) 5 MG DAILY PO Lisinopril (PRINIVIL) 20 MG DAILY PO Insulin Glargine (Lantus/Semglee) 30 UNITS BEDTI ME SUBQ Lidocaine HCl (Glydo 2% JELLY) 1 APPLIC 5XDAY TO PICAL Insulin Human Lispro (HumaLOG) MEDIUM DOSE SLIDI NG SCALE AC HS SUBQ Clopidogrel Bisulfate (PLAVIX) 75 MG DAILY PO Levothyroxine Sodium (Synthroid) 125 MCG DAILY P O Obsbl-2-Drbn Ethyl Esters (LOVAZA) 1 GM DAILY PO (CKD) Glipizide (GLUCOTROL TAB) 5 MG BID AC PO (DC) Aspirin (ASPIRIN EC) 81 MG BEDTIME PO Atorvastatin Calcium (LIPITOR) 80 MG BEDTIME PO Carvedilol (COREG) 6.25 MG Q12HR PO Docusate Sodium (COLACE) 100 MG BID PO Famotidine (PEPCID) 20 MG BID PO Fenofibrate (TRICOR) 108 MG BEDTIME PO Ondansetron HCl (ZOFRAN ODT) 4 MG Q6H PRN PRN PO Acetaminophen (TYLENOL) 650 MG Q4H PRN PRN PO Dextrose/Water (DEXTROSE 50% IN WATER) 12.5 GM A SDIR PRN IV Dextrose/Water (DEXTROSE 50% IN WATER) 25 GM ASD IR PRN IV Hydrocodone Bitart/Acetaminophen (NORCO 5/325 TA BLET (C-II)) 1 TAB Q6H PRN PRN PO Bisacodyl (DULCOLAX) 5 MG BID PRN PRN PO Bisacodyl (BISACODYL SUPP) 10 MG DAILY PRN PRN R ECTAL Docusate Sodium (COLACE) 100 MG BID PRN PRN PO Magnesium Hydroxide (MILK OF MAGNESIA) 30 ML MICHA LY PRN PRN PO Physical Exam General appearance: obese, alert, awake, convers ational, mental status normal Head/Eyes: atraumatic, normal eyelids/periorb., normocephalic ENT: normal dentition, normal ear left, normal e ar right, normal nose Neck: supple/no meningismus, no masses or swelli ng Cardiovascular: normal heart sounds, regular rat e rhythm Respiratory: clear to auscultation, no distress Abdomen: non-tender, normal bowel sounds , soft, no distention, no guarding, no mass/organomegaly, no rebound Extremities: no edema, not able to raise LLE Neuro/CUTTER WOODWIND REEDS: left hemiparesis, alert, oriented X 3 Considered stroke alert: yes Skin: dry, normal temperature Psychiatry: normal affect, normal judgment/insig ht, normal mood Results Findings/Data: Laboratory Tests 12/21 12/21 12/21 12/21 12/21 1637 1400 1228 0752 0416 Chemistry Sodium (137 - 145 MMOL/L) 126 L 126 L Potassium (3.5 - 5.1 MMOL/L) 4.3 4.0 Chloride (98 - 107 MMOL/L) 94 L 96 L Carbon Dioxide (22 - 30 MMOL/L) 24 22 Anion Gap (14 - 24 MMOL/L) 12 L 12 L BUN (9 - 20 MG/DL) 24 H 26 H Creatinine (0.66 - 1.25 MG/DL) 1.20 1.10 Glomerular Filtr Rate > 60 > 60 Glucose (74 - 106 MG/DL) 136 H 71 L POC Glucose (60 - 99 MG/DL) 122 H 140 H 77 Calcium (8.4 - 10.2 MG/DL) 8.6 8.3 L 12/20 1956 Chemistry POC Glucose (60 - 99 MG/DL) 123 H Laboratory Tests 12/22 415 Coagulation INR (0.86 - 1.14) 1.6 H PT Patient/Control Mix (9.4 - 12.7 SECONDS) 17. 5 H Laboratory Tests 12/22 415 Hematology WBC (3.8 - 9.8 K/MM3) 10.7 H RBC (3.95 - 5.67 M/MM3) 2.91 L Hgb (12.4 - 16.7 G/DL) 8.4 L Hct (35.9 - 49.5 %) 24.9 L MCV (81.7 - 96.1 fL) 86 MCH (27.6 - 33.2 pg) 28.9 MCHC (32.9 - 35.5 %) 33.7 RDW (12.1 - 15.2 %) 12.6 Plt Count (129 - 368 K/MM3) 302 MPV (7.4 - 10.4 fl) 10.0 Neut % (Auto) (43 - 75 %) 71.1 Lymph % (Auto) (14 - 44 %) 17.0 [place] % (Auto) (4 - 13 %) 9.6 Eos % (Auto) (0 - 6 %) 1.4 Baso % (Auto) (0 - 2 %) 0.3 Neut # (Auto) (2.0 - 7.6 K/mm3) 7.59 Lymph # (Auto) (1.0 - 3.8 K/mm3) 1.81 [place] # (Auto) (0.1 - 0.8 K/mm3) 1.02 H Eos # (Auto) (0.0 - 0.2 K/mm3) 0.15 Baso # (Auto) (0.0 - 0.2 K/mm3) 0.03 Immature Gran % (0.0 - 2.0 %) 0.6 Nucleated RBC % (0 - 1.0 %) 0.0 Nucleated RBCs # (Man) (0.0 - 0.1 K/mm3) 0.00 Laboratory Tests 12/21 1043 Urines Urine Osmolality (300 - 1200 MOS/KG) 457 Diagnosis, Assessment Plan Problem List/A P: 1. S/P AVR (aortic valve replacement) 2. S/P CABG x 4 3. Right pontine stroke 4. Acute left-sided weakness 5. Diabetes insipidus 6. HTN (hypertension), benign 7. DM2 (diabetes mellitus, type 2) 8. Thoracic aortic aneurysm, without rupture 9. Hyponatremia Free Text DxA P Notes Free text DxA P notes: 1. S/P AVR (aortic valve replacement) post-op pain controlled. Increased warf juan manuel dose 10 mg tonight. INR 1.6 after 5 doses 7.5 goal INR 2-3 2. S/P CABG x 4 Continue current meds. CVS following 3. Acute left-sided weakness Suspect small acute pontine stroke per Dr Alicia has Pt continue to have dense l eft sided weakness with some improvement of the left upper extremity. CT head w and w/o contrast show ed pituitary macroedenoma invading the jen without mass effect. Neuro recommend MRI before further intervention of mass, however cardiovascular surgeon recommended no MRI until 6 weeks after s urgery. 4. 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 DM2 (diabetes mellitus, type 2) Continue Lantus 30u HS, and MDSSI. D/c glipizide to reduce risk of hypoglycemia 6. HTN (hypertension), benign - continue coreg and lisinopril 7. Thoracic aortic aneurysm, without rupture - stable TAA at 4.5 cm 8. Diabetes insipidus DDAVP nasal spray discontinued last 3 days, rupinder tinlynn for effect to wear off. Expect hyponatremia to improve soon per d/w Dr Jacoby cortes 9. Hyponatremia, likely secondary to central DI Consultants: cardiovascular surgery, hospitalist , neurology DVT PPX: warfarin Continue rehab. Quality: Gen Med Crit Care VTE Prophylaxis VTE prophylaxis initiated: yes Current Medications Current medication review: I attest that the foregoing medication list in t he medical record is true, accurate, and complete to the best of my knowled ge. Advanced Care Plan 65 or Older Discussed with: patient (full code) Discussion included: code status (full code) Electronically Signed by Faustino Mercado MD on at 1829 RPT #:[id number] END OF REPORT 2021-12-21 18:19:00-00:00 [id number] [facility] [address] [place] [address] PATIENT NAME: GARCÍA MARRERO ADMIT DATE: 11/18 ACCOUNT NO: [id number] ROOM NO: [facility] AGE: 66 REPORT TYPE: PROGRESS NOTE SEX: M ADMITTING PHYSICIAN:Mp Mendez MD ATTENDING PHYSICIAN:Mp Mendez MD DATE: 12/21/2021 ROS: Thirst + Polyuria + Poor impulse control. Othwerwise negative on a 10 point scale. PERTINENT LABS: Sodium 126, potassium 4, CO2 is 26, creatinine 1.1. Hemoglobin 8.7, white count 10.7. MAR was reviewed. The patient was discontinued b y off DDAVP. PHYSICAL EXAMINATION: VITAL SIGNS: Temperature 97.9, pulse of 60, blood pressure 125/64. He is lying supine. HEAD AND FACE: Normal. NECK: No masses. CHEST: Symmetric chest wall. ABDOMEN: Moderately obese. NEUROLOGIC: Intact. CARDIOVASCULAR: Adequate cardiovascular perfusio n noted. EXTREMITIES: His left arm strength is improving. His was at the bedside. HOSPITAL COURSE: His di d admit the patient is not compliant with the fluid intake restriction. He is drinking fluids somewh at indiscriminately. This morning when I saw him aroun d 9:00 he already had finished off approximately 800 mL from 7:00 a.m. to 9:00 a. m. of his liter jug for his 2 liter restriction. He was well aware. He acknowledged it. He seemed to not care. I did go on to explain again to him and his the im pact it has on his brain. He voiced an understanding. It was not impactful for him know ing this. IMPRESSION: 1. Polydipsia associated polyuria. 2. Electrolyte abnormalities. 3. Status post CABG 4. Status post cerebrovascular accident periop. 5. Pituitary mass with perio p not making him a surgical candidate at this point in time. PATIENT NAME: GARCÍA MARRERO [id number] PLAN: Updated Dr. Faustino Mercado as well a s informed the patient and the to follow up with the neurosurgeon upon discharge, go ahead and call and make an appointment for neurosurgeon and Endocrinology a s an outpatient for a possibility of partial centr al diabetes insipidus related to this central mass. There is understanding. Given his recurrent nonc ompliance with the fluid restriction in the background of DDAVP, right no w he is compensated with self-drinking water. I told him at this time his serum sodium has been staying stable just with his thirst response for water in his now recuperate ability to drink water. This will be his treatment course u ntil he is able to see a neurosurgeon and an forestry aid within two w eeks of discharge, which I informed them that they need to call and make an appointment now. The planned date of discharge is about 2 weeks from now, so they have about a month to set up the arrangements. The is supposed to con tact the insurance company to make these arrangements [employer]. Dictated By: Jhon Villegas MD Date Dictated: 12/21/2021 18:19:24 Date Transcribed: 12/21/2021 20:21:27 /[facility] Receipt ID: [id number] Authenticated and Edited by Jhon Villegas MD On 01/03/22 11:35:04 PM Electronically Signed by Jhon Villegas MD on at 1137 PATIENT NAME: GARCÍA MARRERO [id number] 2021-12-21 15:51:00-00:00 [id number] [place] [address] PATIENT NAME: GARCÍA MARRERO ADMIT DATE: 11/18 ACCOUNT NO: [id number] ROOM NO: [id number] AGE: 66 REPORT TYPE: PROGRESS NOTE SEX: M ADMITTING PHYSICIAN:Mp Mendez MD ATTENDING PHYSICIAN:Mp Mendez MD DATE: 12/21/2021 SUBJECTIVE: Mr. Marrero is see n on 12/21/2021 for rehabilitation direction and for initial interdisciplinary team conferenc e to be documented elsewhere following an acute left hemiplegia of uncertain etiology, following quadruple aortocoronary artery bypass graft surgery and ao rtic valve replacement with bioprosthesis on 12/06/2021. The patient had a sudden onset of left hemiparesis on or about 12/08/2021 which progressed to compl ete left hemiplegia which persisted for at least several hours. The patien t; however, had onset of recovery with initial improved motor function in the left upper extremity followed by gradual improvement in the left lowe r extremity; however, he is still exhibiting a left hemiparesis. The patient also has some other neurological cognitive defic its as well. The patient was stabilized and seen by Neurology who thought the patient might have a p ontine infarction which could not be seen on CT scan. A brain MRI was not obta ined at the request of the cardiovascular surgeon who wished it to be delay ed. The patient was subsequently discharged to his inpatient rehabilitation facility on 12/15/2021. The patient was seen today in his room. He was alert and oriented to person, place and situation. Speech was intellig ible and fluent. He was complaining of some insomnia which he has chronically and [facility] he has taken regularly zolpidem at home 5 mg and he requested that it b e available to him in the hospital and I exceeded to his request ordering zolpidem 5 mg at bedtime as needed. The patient is being closely followed by Dr. Sarah Villegas, yard stocker for hyponatremia and possible diabetes insipidus. e patient's serum sodium has remained stable. Today, it is still at 126. The patient continues to have a mild leukocytosis of 10.7 and he is anem ic, likely secondary to blood loss and possible chronic disease with a hemoglob in today of 8.4. The patient does have slightly impaired kidney function. The patient was seen by occupational therapy yes terday for team conference update and he has progressed from moderate assistance to set up with feeding and oral hygiene and has progressed from total romi tance to moderate assistance with upper body dressing. He still requires total assistance for bathing, lower body dressing and footwear. He will benefit from further intensive occupational therapy. Physical therapy saw him for te am conference update and noted that he was showing slow progress with strength and func tional mobility and he was currently requiring maximal assistance with bed mobility and functional transfers. He has been able to propel his wheelc hair for up to 30 feet at a time slowly and using both upper extremities req uiring maximal to moderate assistance with verbal cues for safety. The team felt that he would benefit PATIENT NAME: GARCÍA MARRERO [id number] from further inpatient rehabilitation and set a projected discharge date of 12/30/2021 for discharge home to the car e of his able-bodied . His medical condition will continue to be monitored by the [facility] hospitalist and Dr. Villegas, the yard stocker. The patient is also bettina ng followed by his cardiovascular surgeon, Dr. Aragon. The therapist noted that the patient is sometimes oppositional to participating in therapy and wishes to remain in bed. He will likely require encouragement and firm redirection to full y benefit from an intensive inpatient rehabilitation program. Dictated By: Mp Mendez MD Date Dictated: 12/21/2021 15:51:48 Date Transcribed: 12/21/2021 18:12:51 [facility] Receipt ID: [id number] Authenticated by Mp Mendez MD On 08:24:09 PM Electronically Signed by Mp Mendez MD on at 0824 PATIENT NAME: GARCÍA MARRERO ACCOUNT #: [id number] 2021-12-21 09:21:00-00:00 [facility] ([facility]) Cardiovascular Surgery Prog REPORT#:[id number] REPORT STATUS: Signed DATE:12/21/21 TIME: 920 PATIENT: GARCÍA MARRERO UNIT #: [id number] [facility] AGE: 66 SEX: M ATTEND: Royal Mendez MD ADM AUTHOR: Silvia Frost DPM R1 * ALL edits or amendments must be made on the [employer]/computer document * General Status post: ACB x 4 Subjective HPI: No overnight event. Pt repor ts constipation, abdominal discomfort, continue urge to unrinate. Denies nausea, vomitting, CP or SOB . Reports he has been doing stationary excercises but unable to walk due to inability to keep the balance. is at bedside. Review of Systems Constitutional: Denies: chills, fatigue, fever. Respiratory: Denies: SOB. Cardiovascular: Denies: chest pain. GI: Reports: abdominal pain, constipation. : Reports: frequency, urgency. Objective Physical Exam Neck: non-tender, no masses or swelling Cardiovascular: BP/pulses equal bilat., normal h eart sounds, regular rate rhythm Respiratory: aerating well Abdomen: soft, non-tender, normal bowel sounds, no distention Extremities: no edema Neuro/CUTTER WOODWIND REEDS: alert, oriented X 3, pt. unable to li ft up his left foot Considered stroke alert: yes Diagnosis, Assessment Plan Free Text A P: Pt. with CAD S/p ACB x 4 with AVR Pituitary mass Diabetes Hypertension Hyperlipidemia Acute left sided weakness PLAN: Continue with warfarin Continue with rehab 12/21/21: Continue with warfarin Continue with rehab Electronically Signed by Silvia Frost DPM R1 on at 1405 at 2005 RPT #:[id number] END OF REPORT 2021-12-20 16:07:00-00:00 [facility] ([facility] Hospitalist Progress Note REPORT#:[id number] REPORT STATUS: Signed DATE:12/20/21 TIME: 1607 PATIENT: GARCÍA MARRERO UNIT #: [id number] ROOM/BED: [address] : 55 AGE: 66 SEX: M ATTEND: Royal Mendez MD ADM AUTHOR: Faustino Mercado MD * ALL edits or amendments must be made on the [employer]/computer document * Subjective Chief complaint: s/p CABG and AVR HPI: No adverse event o/n, pt still able to participa te with PT. BP stable without hypotension or hypoglycemic episode today. His D DAVP nasal spray has been stopped by yard stocker Dr Jacoby cortes and pt's hyponatremia continue to worsened over last 4 days. Pt denies cp/sob Review of Systems Constitutional: Reports: generalized weakness. Denies: chills, f atigue, fever, lethargy, malaise, recent wt loss, other. Respiratory: Reports: PHELPS (dyspnea on exertion). Denies: hemo ptysis, non productive cough, parox nocturnal dyspnea, ple urisy, pleuritic pain, pneumonia, productive cough ( sputum), SOB, wheezing, other. Cardiovascular: Reports: chest pain, PHELPS (dyspnea on exertion). Denies: edema, orthopnea, palpitations, parox nocturnal dyspnea, other. GI: Denies: abdominal pain, anorexia, constipation, diarrhea, dysphagia, GERD, hematemesis, hematochezia, h iatal hernia, melena, nausea, rectal pain, vomiting, other. All systems rev neg: except as marked Objective General VS/I O: Vital Signs: Date Time Temp Pulse Resp B/P B/P Pulse O2 O2 F low FiO2 Mean Ox Delivery Rate 12/20 1608 98.1 68 18 126/65 85.5 98 Room air 12/20 0619 97.7 69 18 106/65 78.2 97 Room air 12/20 0354 98.1 72 18 107/68 81.3 100 12/19 2106 70 115/62 79 12/19 1835 97.5 67 18 114/59 77.6 99 24 hour I O ending at 0700: 12/20 0700 12/19 1900 Intake Total 240 240 Output Total 600 60 Balance -360 180 Intake, Oral 240 240 Number 1 Bowel Movements Number 0 0 Incontinent Voids Number Voids 0 2 Output, Urine 600 60 Patient 126 kg Weight Weight Bed scale Measurement Method PATIENT WEIGHT: Weight (lb): 277 Weight (oz): 12.52 Weight (kg): 126.000 Medications: Active Meds + DC'd Last 24 Hrs Warfarin Sodium (COUMADIN) 10 MG QPM PO (CKD) Amlodipine Besylate (NORVASC TAB) 5 MG DAILY PO Lisinopril (PRINIVIL) 20 MG DAILY PO Insulin Glargine (Lantus/Semglee) 30 UNITS BEDTI ME SUBQ Lidocaine HCl (Glydo 2% JELLY) 1 APPLIC 5XDAY TO PICAL Lisinopril (PRINIVIL) 40 MG DAILY PO (DC) Desmopressin Acetate (DDAVP NASAL SPRAY) 1 SPRAY QPM NASAL (DC) Warfarin Sodium (COUMADIN) 7.5 MG QPM PO (DC) Insulin Human Lispro (HumaLOG) MEDIUM DOSE SLIDI NG SCALE AC HS SUBQ Clopidogrel Bisulfate (PLAVIX) 75 MG DAILY PO Levothyroxine Sodium (Synthroid) 125 MCG DAILY P O Vvyil-9-Tsth Ethyl Esters (LOVAZA) 1 GM DAILY PO (CKD) Glipizide (GLUCOTROL TAB) 5 MG BID AC PO Amlodipine Besylate (NORVASC TAB) 5 MG BID PO (D C) Aspirin (ASPIRIN EC) 81 MG BEDTIME PO Atorvastatin Calcium (LIPITOR) 80 MG BEDTIME PO Carvedilol (COREG) 6.25 MG Q12HR PO Docusate Sodium (COLACE) 100 MG BID PO Famotidine (PEPCID) 20 MG BID PO Fenofibrate (TRICOR) 108 MG BEDTIME PO Insulin Glargine (Lantus/Semglee) 40 UNITS BEDTI ME SUBQ (DC) Ondansetron HCl (ZOFRAN ODT) 4 MG Q6H PRN PRN P O Acetaminophen (TYLENOL) 650 MG Q4H PRN PRN PO Dextrose/Water (DEXTROSE 50% IN WATER) 12.5 GM A SDIR PRN IV Dextrose/Water (DEXTROSE 50% IN WATER) 25 GM ASD IR PRN IV Hydrocodone Bitart/Acetaminophen (NORCO 5/325 TA BLET (C-II)) 1 TAB Q6H PRN PRN PO Bisacodyl (DULCOLAX) 5 MG BID PRN PRN PO Bisacodyl (BISACODYL SUPP) 10 MG DAILY PRN PRN R ECTAL Docusate Sodium (COLACE) 100 MG BID PRN PRN PO Magnesium Hydroxide (MILK OF MAGNESIA) 30 ML MICHA LY PRN PRN PO Physical Exam General appearance: alert, awake, conversational , mental status normal Head/Eyes: atraumatic, normal eyelids/periorb., normocephalic ENT: normal dentition, normal ear left, normal e ar right, normal nose Neck: supple/no meningismus, no masses or swelli ng Cardiovascular: normal heart sounds, regular rat e rhythm Respiratory: clear to auscultation, no distress Abdomen: non-tender, normal bowel sounds , soft, no distention, no guarding, no mass/organomegaly, no rebound Extremities: no edema, not able to raise LLE Neuro/CUTTER WOODWIND REEDS: left hemiparesis, alert, oriented X 3 Considered stroke alert: yes Skin: dry, normal temperature Psychiatry: normal affect, normal judgment/insig ht, normal mood Results Findings/Data: Laboratory Tests 12/20 12/20 12/20 12/20 12/19 1408 1121 0615 3191 2246 Chemistry Sodium (137 - 145 MMOL/L) 126 L 125 L Potassium (3.5 - 5.1 MMOL/L) 3.9 3.8 Chloride (98 - 107 MMOL/L) 93 L 93 L Carbon Dioxide (22 - 30 MMOL/L) 24 23 Anion Gap (14 - 24 MMOL/L) 13 L BUN (9 - 20 MG/DL) 27 H 28 H Creatinine (0.66 - 1.25 MG/DL) 1.30 H 1.30 H Glomerular Filtr Rate 55 55 Glucose (74 - 106 MG/DL) 117 H 88 POC Glucose (60 - 99 MG/DL) 131 H 84 86 Calcium (8.4 - 10.2 MG/DL) 8.6 8.4 12/19 1925 Chemistry POC Glucose (60 - 99 MG/DL) 97 Laboratory Tests 12/20 0417 Coagulation INR (0.86 - 1.14) 1.6 H PT Patient/Control Mix (9.4 - 12.7 SECONDS) 17. 8 H Diagnosis, Assessment Plan Problem List/A P: 1. S/P AVR (aortic valve replacement) 2. S/P CABG x 4 3. Right pontine stroke 4. Acute left-sided weakness 5. Diabetes insipidus 6. HTN (hypertension), benign 7. DM2 (diabetes mellitus, type 2) 8. Thoracic aortic aneurysm, without rupture 9. Hyponatremia Free Text DxA P Notes Free text DxA P notes: 1. S/P AVR (aortic valve replacement) post-op pain controlled. Increased warf juan manuel dose 10 mg tonight. INR 1.6 after 4 doses 7.5 2. S/P CABG x 4 Continue current meds. CVS following 3. Acute left-sided weakness Suspect small acute pontine stroke per Dr Alicia has Pt continue to have dense l eft sided weakness with some improvement of the left upper extremity. CT head w and w/o contrast show ed pituitary macroedenoma invading the jen without mass effect. Neuro recommend MRI before further intervention of mass, however cardiovascular surgeon recommended no MRI until 6 weeks after s urgery. 4. 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 DM2 (diabetes mellitus, type 2) Continue Lantus 40u HS, and MDSSI Glucose control improved 6. HTN (hypertension), benign - Hypotensive today, will decrease amlodipine 5 daily and lisinopril 20. continue coreg with holding parameter 7. Thoracic aortic aneurysm, without rupture 8. Diabetes insipidus responded to DDAVP nasal spray, which is stoppe d today to see if pt's hyponatremia improves. Will monitor elec trolytes and UOP closely next few days Consultants: cardiovascular surgery, hospitalist , neurology DVT PPX: warfarin Continue rehab. Quality: Gen [facility] Crit Care VTE Prophylaxis VTE prophylaxis initiated: yes Current Medications Current medication review: I attest that the foregoing medication list in t he medical record is true, accurate, and complete to the best of my knowled ge. Advanced Care Plan 65 or Older Discussed with: patient (full code) Discussion included: code status (full code) Electronically Signed by Faustino Mercado MD on at 1614 RPT #:[id number] END OF REPORT 2021-12-20 13:42:00-00:00 [facility] ([facility]) Rehab Team Conference REPORT#:[id number] REPORT STATUS: Signed DATE:12/20/21 TIME: 1342 PATIENT: GARCÍA MARRERO UNIT #: [id number] [facility] AGE: 66 SEX: M ATTEND: Royal Mendez MD ADM AUTHOR: Mp Mendez MD * ALL edits or amendments must be made on the [employer]/computer document * Rehabilitation Team Conference Weekly Team Conference Team conf information: Date of conference: 12/21/21 Conference type: Initial Conference scribe: Luisana Cisneros CAMPAIGN DEVELOPER INTERDISCIPLINARY TEAM MEETING PARTICIPANTS: TITLE NAME MD Mp Mendez MD RN Albino Pantoja, JOESPH PT Moreno Trotter, PT OT Dimple Coronado OT CM/SW Shereen Randolph, RN ST Luisana Cisneros, CAMPAIGN DEVELOPER [facility] Conrado Coronado, slitter scorer cut off operator (8) Cirilo Tolentino, PT Staff (9) NO ATTENDEE OTHER NAME CREDENTIALS 1 DR. JUSTO PUENTES PHD 2 FUNCTIONAL CHANGE: TYPE ADMISSION TOTAL INTERIM TOTAL CHANGE Self care 11 17 6 Transfer 8 7 -1 Mobility 8 8 0 Wheelchair distance: 120ft (partialA-maxA) Mobility description: Mod/Max X2 for mobiliy BOWEL AND BLADDER STATUS: Bowel continence admission rating: Bladder continence admission rating: Bowel and bladder team confe rence update: INCONTINENT OF BOWEL AND RETENTION AND MINA OF BLADDER INTERDISCIPLINARY TEAM UPDATES: CAROLYN team conference update: 12-20-21 NURSING NISSA ENT AOX4, PLEASANT AND COOPERATIVE IN NURSING CARE. WITH DRESSING/ CHEST AND R LEG , INCISION HEALTHY. ONLY C/O OF PAIN WHEN TURNED AND GETTING UP ON BED. BUT REFUSED PAIN MEDICTAION. WITH GOOD APPETITE, ON 1800 FLUID RESTRICTION,PATIENT AWARE. STILL WITH MIDLINE LEFT ARM AND MINA CATHETER DUE TO URINARY RETEN TION. PATIENT ON COUMADIN AND WITH PTINR FOR MONITORING.INCONTINENT/ BM. TOTAL CARE TRANSFER AND TOILETING. PT team conference update: PATIENT SHOWING SLOW PROGRESS WITH STRENGTH AND FUNCTIONAL MOBILITY. PATIENT CURRENTLY REQ'S MAX A WITH BED MOBILITY AND FUNCTIONAL TRANSFERS. PATIEN T ABLE TO PROPEL W/C FOR 20'+30' SLOW PACE USING BUE TO PROPEL w/ MAX/MOD A w/ CUES FOR SAFETY. PATIE NT WILL CONT TO BENEFIT FROM SKILLED PT SERVICES TO IMPRO VE FUNCTIONAL MOBILITY INDEP. STG: PT WILL BE MIN A WITH BED MOBILITY STG: PT WILL BE MIN A WITH FUNCTIONAL TRANSFERS STG: PT WILL BE MIN A WITH W/C MOBILITY OT team conference update: P t. has progressed from partial A to set up w/ eating and oral care. Pt. required total A w/ bathing. Pt. has progressed from total A to partial A w/ UBD. Pt. required total A w/ LBD and footwear. The pt. will continue to benefit from intensive OT service to improve safety w/ ADL fu nction, improve mobiblity and ease w/ functional t/f, increase problem solving and safety awareness w/ ADLs, increase BUE strength and ROM, increase activity tolerance, provide energy conservation education, review fall prevention, and caregiver education. ST team conference update: P t is on an easy to chew diet and tolerating well. Pt will be assessed to upgrade to a regular diet. O ral motor/speech: Mild oral facial weakness persists. Pt declined shaving fo r vital stim/NMES. Pt will be taught oral facial exs for i ndependent practice/home program. Speech is slightly imprecise but 100% intelligi bile and functional for independent communication of wants/needs/ideas. Pt presen ts with mild cognitive deficits including mild left side neglect, mild inattention/distractibility, mild decreased reasoning/ insight. Pt has decreased motivation to particip ate in s.t. activities due to denial of deficits. Pt reports that the pt is near PLOF for cognitive communication skills. ST will cont to follow for education, training and independent practice activities for 1-3 more ses sions. CM or SW team conference update: LIVES WITH SPOU SE IN A H. Other discipline update 1: Other discipline update 2: Other discipline update 3: REHAB DC GOALS: Patient's identified dischar ge goal: PT REGAIN BACK THE STRENGHT AND ABLE TO DO THE ADL,S,HAVING CONTINENCY OF BOWEL AND BLADDER ,HAS HEALING WOUNDS WITH CONTROLLED PAIN. PT: "Right now, all I want to d o is to be able to get up, walk to the toilet and use the bathroom. " OT: "I WANT TO BE ABLE TO GET UP AND GET TO THE TOILET." ST: TO GET BETTER AND GO GENESIS E. Eating discharge goal: Independent (6) Shower/bathe self discharge goal: Partial/moder ate asst (3) Upper body dressing discharge goal: Partial/mo derate asst (3) Lower body dressing discharge goal: Partial/mod erate asst (3) Chair/bed to chair transfer discharge goal: Par tial/moderate asst (3) Transfer on/off toilet or commode discharge goa l: Setup/clean-up only (5) Walking 50 feet with two turns discharge goal: Partial/moderate asst (3) Walking 150 feet discharge goal: Partial/modera te asst (3) Four steps discharge goal: Not applicable Twelve steps discharge goal: Not applicable [place] 150 feet discharge goal: Partial/moder ate asst (3) Goal 1 - Bowel function: DEV L HAVE NORMAL BOWEL CONTINENCY BY ENCOURAGING TO USE THE TOILET Goal 2 - Bladder function: W ILL HAVE NORMAL BLADDER CONTINENCY BY ENCOURAGING TO USE THE TOILET Nursing goal 3: WILL REGAIN THE STRENGHT BY ENCO URAGING THE PATIENT TO PARTICIPATE IN DAILY PT AND OT SERVICES Nursing goal 4: WILL PREVENT PAIN BY GIVING THE PRN PAIN MEDS Nursing goal 5: WILL PREVENT FALL BY OBSERVING F ALL PRECAUTIONS DISCHARGE PLANNING: Barriers to discharge: Fall risk, Caregiver, Endurance, Pain, RISK FOR INFECTION /MINA Strategies for D/C barriers: Evaluate pain contr ol, Fall recovery training, Initiate bowel program, Scheduled void, SAFETY A WARENESS Estimated length of stay in days: 15 Anticipated discharge date: 12/30/21 Discharge date adjustment comment: Identified financial and/or community resource needs: HOME HEALTH SERVICES. DME. Family/Caregiver training days: ONGOING TRAINING [place] day (DATE): 12/29/21 Expected discharge destination: Home Anticipated services upon discharge: Home health , Nurses aide, Nursing, Occupational therapy, Physical therapy Anticipated discharge equipment: Gait belt, Reac her, Sock aid, Shower chair, Bedside commode, Grab bars, Hand held shower head, W/C, HOSPITAL BED, SVEN LIFT Impairment group: brain dysfunction NOTE Document ONLY ONE Impairment Group Brain dysfunction: nontraumatic Etiologic diagnosis: LEFT HEMIPLEGIA OF UNKNOWN ETIOLOGY Review of comorbidities: DM, HBP, HLP, HYPOTHYROIDISM, AND VITAMIN B-12 D EFICIENCY Review/Recommendations Attestation: This interdisciplinary team conference was led marisa del castillo and I concur with all decisions made during the team conference and re visions to the individualized overall plan of care. IRF cont stay criteria NEEDS SEVERAL MORE DAYS OF I NTENSIVE INPATIENT REHAB TO PREPARE FOR RETURN HOME WITH CAREGIVER ASSISTANCE Electronically Signed by Mp Mendez MD on 09/06 at 2020 RPT #:[id number] END OF REPORT 2021-12-20 13:41:00-00:00 [id number] [address] PATIENT NAME: GARCÍA MARRERO ADMIT DATE: 11/18 ACCOUNT NO: [id number] ROOM NO: [facility] AGE: 66 REPORT TYPE: PROGRESS NOTE SEX: M ADMITTING PHYSICIAN:Mp Mendez MD ATTENDING PHYSICIAN:Mp Mendez MD DATE: 12/20/2021 Mr. Marrero is seen on 12/20/2021 for reha bilitation direction for an acute left hemiplegia of uncertain etiology, following a re cent quadruple aortocoronary artery bypass graft surgery and aortic valve rep lacement with bioprosthesis performed by Dr. Wil Aragon at [facility] on 12/06/2021. The patient had onset of left hemiplegia on or about 12/08/2021, which began gradually and then progressed to full left hemiplegia. This wa s followed by a progressive recovery, which has continued up until t he present. This morning, he is moving his left arm and left leg quite well; although, he is still weak. The patient is participating in his rehabilitation p [facility] on a consistent daily basis. He is being followed medically by the admit [facility] hospitalist at the [facility] and his consulting tutoring manager Dr. Aidee pinon as well as his consulting yard stocker Dr. Jhon Villegas. In additi on, Dr. Aragon has been following him postoperatively. The patient is on warfarin srinath use of his valvular bioprosthesis and his prothrombin time i s increasing gradually. Today it is up to 17.8 seconds with an INR of 1.6. The patient has a persistent hyponatremia with a serum sodium today of 125, down from 128 yesterday. His serum chloride is low too at 93. The patient's diabetes is unde r good control with good fasting blood sugars. The patient's renal functi on is impaired with elevated BUN of 28 and lower than normal GFR 55 with a cr eatinine that seems to be trending downward today at 1.30, still mildly ab normal. The patient's serum calcium levels have been normal. This patient is to be discus sed at his initial interdisciplinary team conference tomorrow at which time his progress will be revi ewed, functional potential determined, short and long-t erm rehabilitation objectives established, discharge plan confirmed with a definite discharge date pr ojected. At the present time, he has a Mina catheter in for urinary retention and a consultation has been requested from Dr. Luke Ruiz urologist to marnie ise about further indwelling bladder catheter usage. The patient was also seen by Dr. Jhon Villegas today and he has been following the patient for his hypona tremia and polydipsia and polyuria. The patient has been placed on DDAVP every evening. The patient also has a pituitary macroadenoma. The patient will u ndergo evaluation by a neurosurgeon after discharge . The patient was seen in his room this morning and he was in good spirits. Alert and oriented. His vital signs showed a temperature of 36.5 degrees centigrade, pulse 69 , respirations 18, blood pressure 106/65 and oxygen saturation 97 % on room air. He will continue on his present rehabilitation progr am at this time while his medical condition will be closely monitored and approp riate intervention taken as indicated to prevent any interruption of his rehabilitation program. PATIENT NAME: GARCÍA MARRERO [id number] Dictated By: Mp Mendez MD Date Dictated: 12/20/2021 13:41:12 Date Transcribed: 12/20/2021 14:50:38 [facility] Receipt ID: [id number] Authenticated by Mp Mendez MD On 09:21:50 PM Electronically Signed by Mp Mendez MD on at 0921 PATIENT NAME: GARCÍA MARRERO [id number] 2021-12-20 09:30:00-00:00 [id number] [address] PATIENT NAME: GARCÍA MARRERO ADMIT DATE: 11/18 ACCOUNT NO: [id number] ROOM NO: [facility] AGE: 66 REPORT TYPE: PROGRESS NOTE SEX: M ADMITTING PHYSICIAN:Mp Mendez MD ATTENDING PHYSICIAN:Mp Mendez MD DATE: 12/20/2021 SUBJECTIVE: The patient was seen and examined, r esting comfortably, no significant changes. No issues of nausea, vomiti ng, fevers, chills, shortness of breath, headache. REVIEW OF SYSTEMS: Otherwise, negative on 10-poi nt scale. He did admit that he is not following his fluid restriction as previously, he seemed to be somewhat apathetic, noncommittal. LABS: Sodium was 125, down from 128, 131, potass ium 3.8, BUN 28, creatinine 1.3, chloride 93. PHYSICAL EXAMINATION: VITAL SIGNS: Blood pressure 106/65, pulse of 69, temperature 97.7. HEAD AND FACE: Normal. NECK: No masses. CHEST: Symmetric chest wall. ABDOMEN: Nondistended. EXTREMITIES: No edema. He has a large central pa nnus with central obesity. CARDIOVASCULAR: Adequate cardiovascular perfusio n noted. PSYCHIATRIC: There may be so me depression, some apathy or just mood disorder and anger management disorder. MAR was reviewed. DDAVP q.p.m. HOSPITAL COURSE: Discussed with the attending best stark, Dr. Faustino Mercado my clinical suspicion as well as the limitations of workup during his acute hospital phase and rehabilitation phase. Acute i ssues. IMPRESSION: 1. Polydipsia, polyuria. 2. Recent vascular procedure. 3. Recent stroke, left-sided weakness improving. 4. Pituitary microadenoma with local invasion. PLAN: 1. At this time, the patient is pending evaluati on by a neurosurgeon as an outpatient. I discussed with the patient today. I reminded him he needs to PATIENT NAME: GARCÍA MARRERO [id number] ____ predischarge versus waiting for discharge a s well as advised him and reminded him of the discussion with him and his on an Endocrinology followup as an outpatient. 2. Discussed with Dr. Faustino Mercado the attending last night regarding this is a clinical picture. He likely has some element of partial central diabetes insipidus with a component of behavioral polydip jonathan as well. Less likely nephrogenic polydipsia as the patient by the manoj ps in the serum sodium apparently does have a respo nse to the DDAVP. Given two attempts to control his polydipsia with DDAVP, but patient unfortunately resistant as well as not willing to adjust his behavioral aspect. We will go ahead and discontinue the DDAVP as he is compensated, has prior po lydipsia with water drinking, although he is improving his function of the left arm as well ____ surgical phase. I did discuss with the attending given his recent acut e stroke. We will treat symptomatically and would no t approach a water deprivation test for a definitive diagnosis at this time. The patient's wi fe as well as patient has been updated on this issue as well as importance of followup with an forestry aid as an outpatient. Dictated By: Jhon Villegas MD Date Dictated: 12/20/2021 09:30:49 Date Transcribed: 12/20/2021 10:37:22 RP/MARTHALisa Receipt ID: [id number] Authenticated by Jhon Villegas MD On 01/03/2022 11:34:13 PM Electronically Signed by Jhon Villegas MD on at 1134 PATIENT NAME: GARCÍA MARRERO [id number] 2021-12-19 18:16:00-00:00 [facility] ([facility]) Hospitalist Progress Note REPORT#:[id number] REPORT STATUS: Signed DATE:12/19/21 TIME: 1815 PATIENT: GARCÍA MARRERO UNIT #: [id number] ROOM/BED: [address] : 55 AGE: 66 SEX: M ATTEND: Royal Mendez MD ADM AUTHOR: Faustino Mercado MD * ALL edits or amendments must be made on the [employer]/computer document * Subjective Chief complaint: s/p CABG HPI: pt seen in exercise room, sitting in w/c, able t o plantar flex his left foot with some strength. He's also noted to m ove his LUE freely from elbow outward. BP borderlined low with SBP 100 Review of Systems Constitutional: Denies: chills, fatigue, fev er, generalized weakness, lethargy, malaise, recent wt loss, other. Respiratory: Denies: PHELPS (dyspnea on exertion), hemoptysis, n on productive cough, parox nocturnal dyspnea, pleurisy, pleuritic pain, pneumonia, productive cough (sputum ), SOB, wheezing, other. Cardiovascular: Denies: chest pain, PHELPS (dyspnea on exer tion), edema, orthopnea, palpitations, parox nocturnal dyspnea, other. All systems rev neg: except as marked Objective General VS/I O: Vital Signs: Date Time Temp Pulse Resp B/P B/P Pulse O2 O2 F low FiO2 Mean Ox Delivery Rate 12/19 1435 97.7 74 20 57/23 34.2 12/19 0515 74 20 120/54 76.2 98 12/19 0438 98.2 70 18 105/51 0.0 97 12/18 190 98.8 76 17 112/67 82.3 97 24 hour I O ending at 0700: 12/19 0700 12/18 190 Intake Total 1950 Output Total 2950 Balance -1000 Intake, Oral 1950 Number 1 Bowel Movements Number 3 Incontinent Voids Number Voids 0 Output, Urine 2950 PATIENT WEIGHT: Weight (lb): 261 Weight (oz): 0 Weight (kg): [phone] Medications: Active Meds + DC'd Last 24 Hrs Amlodipine Besylate (NORVASC TAB) 5 MG DAILY PO Lisinopril (PRINIVIL) 20 MG DAILY PO Insulin Glargine (Lantus/Semglee) 30 UNITS BEDTI ME SUBQ Lidocaine HCl (Glydo 2% JELLY) 1 APPLIC 5XDAY TO PICAL Lidocaine HCl (XYLOCAINE JELLY 2% UD) 1 ART NOW ONE TOPICAL (DC) Lisinopril (PRINIVIL) 40 MG DAILY PO (DC) Desmopressin Acetate (DDAVP NASAL SPRAY) 1 SPRAY QPM NASAL (CKD) Warfarin Sodium (COUMADIN) 7.5 MG QPM PO Insulin Human Lispro (HumaLOG) MEDIUM DOSE SLIDI NG SCALE AC HS SUBQ Clopidogrel Bisulfate (PLAVIX) 75 MG DAILY PO Levothyroxine Sodium (Synthroid) 125 MCG DAILY P O Mzorx-0-Noel Ethyl Esters (LOVAZA) 1 GM DAILY PO (CKD) Glipizide (GLUCOTROL TAB) 5 MG BID AC PO Amlodipine Besylate (NORVASC TAB) 5 MG BID PO (D C) Aspirin (ASPIRIN EC) 81 MG BEDTIME PO Atorvastatin Calcium (LIPITOR) 80 MG BEDTIME PO Carvedilol (COREG) 6.25 MG Q12HR PO Docusate Sodium (COLACE) 100 MG BID PO Famotidine (PEPCID) 20 MG BID PO Fenofibrate (TRICOR) 108 MG BEDTIME PO Insulin Glargine (Lantus/Semglee) 40 UNITS BEDTI ME SUBQ (DC) Ondansetron HCl (ZOFRAN ODT) 4 MG Q6H PRN PRN PO Acetaminophen (TYLENOL) 650 MG Q4H PRN PRN PO Dextrose/Water (DEXTROSE 50% IN WATER) 12.5 GM A SDIR PRN IV Dextrose/Water (DEXTROSE 50% IN WATER) 25 GM ASD IR PRN IV Hydrocodone Bitart/Acetaminophen (NORCO 5/325 TA BLET (C-II)) 1 TAB Q6H PRN PRN PO Bisacodyl (DULCOLAX) 5 MG BID PRN PRN PO Bisacodyl (BISACODYL SUPP) 10 MG DAILY PRN PRN R ECTAL Docusate Sodium (COLACE) 100 MG BID PRN PRN PO Magnesium Hydroxide (MILK OF MAGNESIA) 30 ML MICHA LY PRN PRN PO Physical Exam General appearance: obese, awake, conversational , mental status normal Head/Eyes: atraumatic, normal eyelids/periorb., normocephalic ENT: normal dentition, normal ear left, normal e ar right, normal nose Neck: supple/no meningismus, no masses or swelli ng Cardiovascular: normal heart sounds, regular rat e rhythm Respiratory: clear to auscultation, no distress Abdomen: non-tender, normal bowel sounds , soft, no distention, no guarding, no mass/organomegaly, no rebound Extremities: no edema, not able to raise LLE Neuro/C[employer]TER WOOD[employer] REEDS: left hemiparesis, alert, oriented X 3 Considered stroke alert: yes Skin: dry, normal temperature Psychiatry: normal affect, normal judgment/insig ht, normal mood Results Findings/Data: Laboratory Tests 12/19 12/19 12/19 12/19 12/18 1606 1109 0614 0416 1958 Chemistry Sodium (137 - 145 MMOL/L) 128 L Potassium (3.5 - 5.1 MMOL/L) 4.3 Chloride (98 - 107 MMOL/L) 96 L Carbon Dioxide (22 - 30 MMOL/L) 22 Anion Gap (14 - 24 MMOL/L) 14 BUN (9 - 20 MG/DL) 27 H Creatinine (0.66 - 1.25 MG/DL) 1.40 H Glomerular Filtr Rate 51 Glucose (74 - 106 MG/DL) 104 POC Glucose (60 - 99 MG/DL) 126 H 107 H 99 126 H Calcium (8.4 - 10.2 MG/DL) 9.0 Laboratory Tests 12/20 415 Coagulation INR (0.86 - 1.14) 1.5 H PT Patient/Control Mix (9.4 - 12.7 SECONDS) 16 .4 H Diagnosis, Assessment Plan Problem List/A P: 1. S/P AVR (aortic valve replacement) 2. S/P CABG x 4 3. Right pontine stroke 4. Acute left-sided weakness 5. Diabetes insipidus 6. HTN (hypertension), benign 7. DM2 (diabetes mellitus, type 2) 8. Thoracic aortic aneurysm, without rupture Free Text DxA P Notes Free text DxA P notes: 1. S/P AVR (aortic valve replacement) post-op pain controlled. Continue warfarin 2. S/P CABG x 4 Continue current meds. CVS following 3. Acute left-sided weakness Suspect small acute pontine stroke per Dr Alicia has Pt continue to have dense l eft sided weakness with some improvement of the left upper extremity. CT head w and w/o contrast show ed pituitary macroedenoma invading the jen without mass effect. Neuro recommend MRI before further intervention of mass, however cardiovascular surgeon recommended no MRI until 6 weeks after s urgery. 4. 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 DM2 (diabetes mellitus, type 2) Continue Lantus 40u HS, and MDSSI Glucose control improved 6. HTN (hypertension), benign - Hypotensive today, will decrease amlodipine 5 daily and lisinopril 20. continue coreg with holding parameter 7. Thoracic aortic aneurysm, without rupture 8. Diabetes insipidus responded to DDAVP nasal spray. Pt having less UOP and decreased thirst Consultants: cardiovascular surgery, hospitalist , neurology DVT PPX: warfarin Continue rehab. Quality: Gen Med Crit Care VTE Prophylaxis VTE prophylaxis initiated: yes Current Medications Current medication review: I attest that the foregoing medication list in t he medical record is true, accurate, and complete to the best of my knowled ge. Advanced Care Plan 65 or Older Discussed with: patient (full code) Discussion included: code status (full code) Electronically Signed by Faustino Mercado MD on at 1842 RPT #:[id number] END OF REPORT 2021-12-19 16:22:00-00:00 [id number] [facility] [address] [place] [address] PATIENT NAME: GARCÍA MARRERO ADMIT DATE: 11/18 ACCOUNT NO: [id number] ROOM NO: Z.318 AGE: 66 REPORT TYPE: PROGRESS NOTE SEX: M ADMITTING PHYSICIAN:Mp Mendez MD ATTENDING PHYSICIAN:Mp Mendez MD DATE: 12/19/2021 Mr. Marrero is seen on 12/19/2021 for rehabilitati on direction and for initial interdisciplinary team conference to be document ed elsewhere after developing acute left hemiplegia of uncertain etiology foll owing a recent quadruple aortocoronary artery bypass graft surgery and ao rtic valve replacement with a bioprosthesis performed on 12/06/2021. The patie nt had onset of his left hemiplegia on 12/08/2021 with gradual onset of w orsening weakness on the left side, which progressed to a full left hemiplegia . He subsequently had some neurological recovery of the left upper extremit y. He underwent a neurodiagnostic workup and t he neurologist thought the patient had a possibility of a small right pontine brainstem infar ction non-demonstrable on CT scans. He recommended a brain MRI, but the cardiovascular surgeon did not feel the patient was up to having it and so t hat has been postponed indefinitely. CTs did show a pituitary macroadenoma with invasion into the right cavernous sinus area as well as encroachment on the brainstem at the mitchell. After stabilization, the pat ient was discharged to the inpatient rehabilitation facility on 12/15/2021. The patient has begun hi s intensive inpatient rehabilitation program and h as completed his evaluations and is now in the midst of a therapeutic program to increase his independence in mobility and self-care and enable him to return to his premorbid living situation functioning with caregiver assistance from his who is able b odied. The patient had electrolytes done today, which c ontinued to show significant hyponatremia with a serum so dium down to 128 today. His potassium was normal at 4.3 and his chloride was a bit low at 96 , after being normal yesterday. Carbon dioxide was normal as well. The patient's diabet es is under satisfactory control. His renal function is impaired with BUN of 27 and a GFR of 51 and a creatinine of 1.40. The patient, according to nu rsing, had a fair night. He had a lot of itching in the penile area at the u rethral meatus where the catheter rubs, it kept him awake much at night. I have ordered some lidocaine jelly to be applied througho ut the day to provide relief and I have asked for a consultation with Urology to see if the catheter can be removed. The patient apparently developed urinary retention at someti me after his coronary bypass surgery. According to nursing, the patient is in continent of bowel. This patient will be discussed at his initial interdi sciplinary team conference scheduled for 12/21/2021 at which time his progress will be reviewed, functional potential determined, short and long-term rehabilitation objectives established, discharge plan confirmed and a definite discharge date projected. The patient's vital signs today showed a temperature of 36.8 d egrees centigrade, pulse 70, respirations 18, blood pressure 120/54 w ith oxygen saturation 98% on room air. PATIENT NAME: GARCÍA MARRERO [id number] Dictated By: Mp Mendez MD Date Dictated: 12/19/2021 16:22:19 Date Transcribed: 12/19/2021 16:51:51 [facility] Receipt ID: [id number] Authenticated by Mp Mendez MD On 08:20:18 PM Electronically Signed by Mp Mendez MD on at 0820 PATIENT NAME: GARCÍA MARRERO [id number] 2021-12-18 23:56:00-00:00 [id number] [place] [id number] PATIENT NAME: GARCÍA MARRERO ADMIT DATE: 11/18 ACCOUNT NO: [id number] ROOM NO: Z.[facility] AGE: 66 REPORT TYPE: PROGRESS NOTE SEX: M ADMITTING PHYSICIAN:Mp Mendez MD ATTENDING PHYSICIAN:Mp Mendez MD DATE: 12/18/2021 SUBJECTIVE: The patient was seen and examined, r esting comfortably. No significant changes. No issues of nausea, vomiti ng, fevers, chills, shortness of breath, headache. His did voice that the blood pressure was lower than usual, but he remains asymptomatic overall. LABORATORY DATA: Sodium 131, potassium 3.9, BUN 28, creatinine 1.4, calcium 8.9. OBJECTIVE: VITAL SIGNS: Temperature 97.5, pulse of 67, blood pressure 111/58. I's and O's 600 in, 1800 out. HEENT: Head and face normal. NECK: No masses. CHEST: Symmetrical chest wall. ABDOMEN: Nondistended, obese. NEUROLOGIC: Intact. CARDIOVASCULAR: Adequate respiratory perfusion n oted. The patient was seen in the therapy area. a t the bedside. No changes other than described ____. MAR: Reveiwed IMPRESSION: Pituitary microadenoma, hyponatremia , electrolyte abnormalities, deconditioning, anemia. PLAN: Continue supportive care. Counseled on flu id compliance. Dictated By: Jhon Villegas MD Date Dictated: 12/18/2021 23:56:03 Date Transcribed: 12/19/2021 00:48:29 /TIMOTEO Receipt ID: [id number] Authenticated and Edited by Jhon Villegas MD On 01/03/22 11:33:28 PM PATIENT NAME: GARCÍA MARRERO [id number] Electronically Signed by Jhon Villegas MD on at 1213 PATIENT NAME: GARCÍA MARRERO [id number] 2021-12-18 23:47:00-00:00 [id number] [address] PATIENT NAME: GARCÍA MARRERO ADMIT DATE: 11/18 ACCOUNT NO: [id number] ROOM NO: Z.318 AGE: 66 REPORT TYPE: PROGRESS NOTE SEX: M ADMITTING PHYSICIAN:Mp Mendez MD ATTENDING PHYSICIAN:Mp Mendez MD DATE: 12/16/2021 SUBJECTIVE: The patient was seen and examined, r esting comfortably, no significant changes. No issues of nausea, vomiti ng, fevers, chills, shortness of breath, or headache were voiced. He w as in good spirits. I believe this was a day that his daughter was present and I counse led her. I could be wrong as this is a late entry dictation. There may be gael e errors or omissions due to the late entry nature of this note. ROS: Otherwise negative on a 10 point scale OBJECTIVE: VITAL SIGNS: Reviewed. Stable. Afebrile. See EHR for full details. HEENT: Head and face normal. NECK: No masses. CHEST: Symmetric wall. ABDOMEN: Nondistended. EXTREMITIES: No edema. NEUROLOGIC: Intact. CARDIOVASCULAR: Adequate cardiovascular perfusio n noted. MAR: Reviewed IMPRESSION: 1. Microadenoma of the pituitary. 2. Electrolyte abnormalities. 3. Polydipsia associated with polyuria. 4. Behavioral hyper-polydipsia. 4. Deconditioning. 5. Weakness. 6. Some issues with anger management and demandi ng nature. PLAN: At this time, the patient was counseled. T he patient was given parameters for his fluid restrictions. The patie nt noted nursing on the floor not recording the patient's fluid intake complet enrrique. Education. Fluid restrictions. Recheck labs. Fol low up closely. No changes otherwise. Dictated By: Jhon Villegas MD Date Dictated: 12/18/2021 23:47:45 PATIENT NAME: GARCÍA MARRERO [id number] Date Transcribed: 12/19/2021 00:49:17 MARTIN/PHYLLIS Tran #: [id number] Receipt ID: [id number] Authenticated and Edited by Jhon Villegas MD On 01/03/22 11:34:06 PM Electronically Signed by Jhon Villegas MD on at 1135 PATIENT NAME: GARCÍA MARRERO [id number] 2021-12-18 17:49:00-00:00 [facility] ([facility] Cardiovascular Surgery Prog REPORT#:[id number] REPORT STATUS: Signed DATE:12/18/21 TIME: 1748 PATIENT: GARCÍA MARRERO UNIT #: [id number] ROOM/BED: [facility] : 55 AGE: 66 SEX: M ATTEND: Xavi Mendez MD ADM AUTHOR: Irene Gonzalez * ALL edits or amendments must be made on the el [employer]/computer document * General Status post: ACB x 4 Subjective Patient reports: No: complaints. Nursing reports: No: complaints. Comments: The patient is seen at bedside with his pre sent. States that he is exhausted from therapy today . He is able to wiggle his left toes and states that he was able to stand up today Review of Systems Constitutional: Reports: generalized weakness. Denies: chills, f atigue, fever. Respiratory: Denies: SOB. Cardiovascular: Denies: chest pain. Objective General VS/I O: Last Documented: Result Date Time Pulse Ox 98 12/19 1527 B/P 123/90 12/19 1527 B/P Mean 101.0 12/19 1527 O2 Delivery Room air 12/19 1527 Temp 36.8 12/19 1527 Pulse 78 12/19 1527 Resp 16 12/19 1527 24 hour I O ending at 0700: 12/18 0700 12/17 1900 Intake Total 160 Output Total 1000 700 Balance -840 -700 Intake, Oral 160 Number 1 Bowel Movements Number 0 0 Incontinent Voids Number Voids 0 2 Output, Urine 1000 700 PATIENT WEIGHT: Weight (lb): 261 Weight (oz): 0 Weight (kg): 118.343764 Medications: Active Meds + DC'd Last 24 Hrs Lisinopril (PRINIVIL) 40 MG DAILY PO Desmopressin Acetate (DDAVP NASAL SPRAY) 1 SPRAY QPM NASAL (CKD) Warfarin Sodium (COUMADIN) 7.5 MG QPM PO Insulin Human Lispro (HumaLOG) MEDIUM DOSE SLIDI NG SCALE AC HS SUBQ Clopidogrel Bisulfate (PLAVIX) 75 MG DAILY PO Levothyroxine Sodium (Synthroid) 125 MCG DAILY P O Rzumq-1-Sglk Ethyl Esters (LOVAZA) 1 GM DAILY PO (CKD) Glipizide (GLUCOTROL TAB) 5 MG BID AC PO Amlodipine Besylate (NORVASC TAB) 5 MG BID PO Aspirin (ASPIRIN EC) 81 MG BEDTIME PO Atorvastatin Calcium (LIPITOR) 80 MG BEDTIME PO Carvedilol (COREG) 6.25 MG Q12HR PO Docusate Sodium (COLACE) 100 MG BID PO Famotidine (PEPCID) 20 MG BID PO Fenofibrate (TRICOR) 108 MG BEDTIME PO Hydralazine HCl (APRESOLINE) 25 MG Q8HR PO (DC) Insulin Glargine (Lantus/Semglee) 40 UNITS BEDTI ME SUBQ Lisinopril (PRINIVIL) 40 MG BID PO (DC) Ondansetron HCl (ZOFRAN ODT) 4 MG Q6H PRN PRN PO Acetaminophen (TYLENOL) 650 MG Q4H PRN PRN PO Dextrose/Water (DEXTROSE 50% IN WATER) 12.5 GM A SDIR PRN IV Dextrose/Water (DEXTROSE 50% IN WATER) 25 GM ASD IR PRN IV Hydrocodone Bitart/Acetaminophen (NORCO 5/325 TA BLET (C-II)) 1 TAB Q6H PRN PRN PO Bisacodyl (DULCOLAX) 5 MG BID PRN PRN PO Bisacodyl (BISACODYL SUPP) 10 MG DAILY PRN PRN R ECTAL Docusate Sodium (COLACE) 100 MG BID PRN PRN PO Magnesium Hydroxide (MILK OF MAGNESIA) 30 ML MICHA LY PRN PRN PO Dietitian nutrition assessment The data set between the solid lines has been im ported from the dietitian's assessment. BMI Calculated: Nutrition related diagnosis: Obese Nutrition diagnosis details: BMI 30-39.9 Nutrition problem: INCREASED NUTRIENT NEEDS Nutrition etiology: INCREASED NUTRIENT DEMAND Nutrition signs and symptoms: PT S/P CABG Nutrition prescription: - CONT DIABETIC DIET WIT H 5 CHO/SERVING AND EASY-TO- CHEW TEXTURES - PROVIDE GLUCERNA BID TO HELP PT BETTER MEET NUTRITIONAL NEEDS Dietitian name: Fariha Aguilera, MS, RD, LDN Assessment completed: 12/18/21 Nutrition provider diagnosis: obese Review of dietitian's assessment: reviewed and a gree Physical Exam General appearance: alert, awake, oriented, no a cute distress Wound/incision: Location: median sternotomy, right lower extrem ity Site condition: dressing clean dry, incision in tact, no drainage, no erythema, Sternum is stable Neck: non-tender, no masses or swelling Cardiovascular: BP/pulses equal bilat., normal h eart sounds, regular rate rhythm Respiratory: aerating well Abdomen: soft, non-tender, normal bowel sounds, no distention Extremities: no edema Neuro/CUTTER WOODWIND REEDS: alert, oriented X 3, pt. unable to li ft up his left foot Considered stroke alert: yes Results Findings/Data: Laboratory Tests 12/18 12/18 12/18 12/17 1111 0610 0430 1935 Chemistry Sodium (137 - 145 MMOL/L) 131 L Potassium (3.5 - 5.1 MMOL/L) 3.9 Chloride (98 - 107 MMOL/L) 99 Carbon Dioxide (22 - 30 MMOL/L) 23 Anion Gap (14 - 24 MMOL/L) 13 L BUN (9 - 20 MG/DL) 28 H Creatinine (0.66 - 1.25 MG/DL) 1.40 H Glomerular Filtr Rate 51 Glucose (74 - 106 MG/DL) 89 POC Glucose (60 - 99 MG/DL) 116 H 98 164 H Calcium (8.4 - 10.2 MG/DL) 8.9 Laboratory Tests 12/18 0430 Coagulation INR (0.86 - 1.14) 1.3 H PT Patient/Control Mix (9.4 - 12.7 SECONDS) 14. 1 H Diagnosis, Assessment Plan Free Text A P: Pt. with CAD S/p ACB x 4 with AVR Pituitary mass Diabetes Hypertension Hyperlipidemia Acute left sided weakness PLAN: Continue with warfarin Continue with rehab at 1750 at 1534 RPT #:[id number] END OF REPORT 2021-12-18 15:13:00-00:00 [id number] [address] PATIENT NAME: GARCÍA MARRERO ADMIT DATE: 11/18 ACCOUNT NO: [id number] ROOM NO: Z.318 AGE: 66 REPORT TYPE: PROGRESS NOTE SEX: M ADMITTING PHYSICIAN:Mp Mendez MD ATTENDING PHYSICIAN:Mp Mendez MD DATE: 12/18/2021 Mr. Marrero is seen on 022 for rehabilitation direction following an acute onset of left hemiplegia of uncertain etiology, following quadruple aortocoronary artery bypass graft surgery and ao rtic valve replacement with a bioprosthesis performed on 12/06/2021. The onset of his left hemiplegia was 12/08/2021 and the patient had gradual o nset of worsening weakness on the left side, which progressed to a full left he miplegia; however, he had neurological recovery as well and has recovered motion, prima rily in the distal left upper extremity. He underwent a thorough diagnostic wo rkup under the direction of neurologist, Dr. Madalyn Cueto who thought that the patient's neurologic impairment might be due to a small right pontine brainstem infarction of an ischemic type. However, it was not possible to d o a brain MRI to further investigate the etiology of his hemiplegia and the serial CTs done, both without and with contrast did not show a definite ischem ic or hemorrhagic lesion. However, it did show a pituitary macroadenoma wi th invasion into the right cavernous sinus area as well as encroachment on the brainstem. [facility] to begin comprehensive inpatient reha bilitation including occupational therapy for ADL training and physic al therapy for general conditioning and mobility training and f inally speech therapy for reassessment cognitively and linguistically. The patient will also be seen by clinical Psychology for psychosocial assessment. The patient is on oral anticoagulation with warf juan manuel and is undergoing daily prothrombin times. His prothrombin time this [facility] was 14.1 seconds with an INR of 1.3, which is subtherapeutic. The patient also is being followed for hyponatremia. His serum sodium is trendi ng upward from 126 two days ago to 131 today, although it had been 132 yesterday. His o ther electrolytes are within normal limits and his blood glucose levels are u nder adequate control. Renal function is somewhat impaired with elevated BUN holding steady at 28 with decreased GFR at 51 and elevated creatinine of 1 .40, which is steady. The patient's urine osmolality was low at 178. The p atient does have a history of polydipsia, polyuria and is being follow ed by Nephrology for possible diabetes insipidus. The patient has been evaluat ed by occupational therapy and physical therapy and he has had an individualized overall of current plan of care developed to guide his treatment on the rehabilitation unit. He dev l be discussed at his initial interdisciplinary team conference scheduled for 12/21/2021 at which time his progress will be reviewed, f unctional potential determined, short and long-term PATIENT NAME: GARCÍA MARRERO [id number] rehabilitation objectives established, d ischarge plan confirmed and a definite discharge date projected. Dictated By: Mp Mendez MD Date Dictated: 12/18/2021 15:13:14 Date Transcribed: 12/18/2021 16:19:17 MELLY/EDSON Receipt ID: [id number] Authenticated by Mp Mendez MD On 01:52:06 PM Electronically Signed by Mp Mendez MD on at 0152 PATIENT NAME: GARCÍA MARRERO [id number] 2021-12-18 09:45:00-00:00 [facility] ([facility] Hospitalist Progress Note REPORT#:[id number] REPORT STATUS: Signed DATE:12/18/21 TIME: 944 PATIENT: GARCÍA MARRERO UNIT #: [id number] ROOM/BED: [address] : [address] AGE: 66 SEX: M ATTEND: Royal Mendez MD ADM AUTHOR: Anika Broderick MD R1 * ALL edits or amendments must be made on the [employer]/computer document * Anika Broedrick 12/18/21 0945: Subjective Chief complaint: follow up for medical management HPI: This is a 66 yo m who was admittd for elective A VR and 4-V CABG. post-op he developed new left sided weakness and multiple C Ts head showed pituitary macroedenoma that extends to the mitchell but no mas s effect or sign of ischemic infarct. His CTA head and neck have been normal. MRI was recommended, but can not be done until [address] surgery per cardiovascular surgery. The patient is doing well today and asks when he will be able to go home. He states that he has been doing well in therapy and denie s any chest pain, SOB, abdominal pain, nausea, or vomiting. He states that he has been having left lower extremity weakness since hospitalization. Prior to hospita lization, he was able to ambulate without any assisti ve devices. He states that he is able to wiggle the toes of his left foot, but is unable to lift the leg. Review of Systems Constitutional: Denies: chills, fever. Respiratory: Denies: PHELPS (dyspnea on exertion), SOB, wheezing . Cardiovascular: Denies: chest pain. GI: Denies: abdominal pain, nausea, vomiting. Neuro: Reports: weakness (LLE). Objective General VS/I O: Vital Signs: Date Time Temp Pulse Resp B/P B/P Pulse O2 O2 F low FiO2 Mean Ox Delivery Rate 12/18 0616 36.4 67 16 111/58 75.6 96 Room air 12/18 0430 36.8 66 17 112/69 83.4 95 12/17 1934 36.8 74 16 117/69 84.8 94 12/17 1533 36.7 66 18 99/61 73.6 96 Room air 24 hour I O ending at 0700: 12/18 0700 12/17 1900 Intake Total 160 Output Total 1000 700 Balance -840 -700 Intake, Oral 160 Number 1 Bowel Movements Number 0 0 Incontinent Voids Number Voids 0 2 Output, Urine 1000 700 PATIENT WEIGHT: Weight (lb): 261 Weight (oz): 0 Weight (kg): 118.545985 Medications: Active Meds + DC'd Last 24 Hrs Lisinopril (PRINIVIL) 40 MG DAILY PO Desmopressin Acetate (DDAVP NASAL SPRAY) 1 SPRAY QPM NASAL (CKD) Warfarin Sodium (COUMADIN) 7.5 MG QPM PO Insulin Human Lispro (HumaLOG) MEDIUM DOSE SLIDI NG SCALE AC HS SUBQ Clopidogrel Bisulfate (PLAVIX) 75 MG DAILY PO Levothyroxine Sodium (Synthroid) 125 MCG DAILY P O [id number] Ethyl Esters (LOVAZA) 1 GM DAILY PO (CKD) Glipizide (GLUCOTROL TAB) 5 MG BID AC PO Amlodipine Besylate (NORVASC TAB) 5 MG BID PO Aspirin (ASPIRIN EC) 81 MG BEDTIME PO Atorvastatin Calcium (LIPITOR) 80 MG BEDTIME PO Carvedilol (COREG) 6.25 MG Q12HR PO Docusate Sodium (COLACE) 100 MG BID PO Famotidine (PEPCID) 20 MG BID PO Fenofibrate (TRICOR) 108 MG BEDTIME PO Hydralazine HCl (APRESOLINE) 25 MG Q8HR PO (DC) Insulin Glargine (Lantus/Semglee) 40 UNITS BEDTI ME SUBQ Lisinopril (PRINIVIL) 40 MG BID PO (DC) Ondansetron HCl (ZOFRAN ODT) 4 MG Q6H PRN PRN PO Acetaminophen (TYLENOL) 650 MG Q4H PRN PRN PO Dextrose/Water (DEXTROSE 50% IN WATER) 12.5 GM A SDIR PRN IV Dextrose/Water (DEXTROSE 50% IN WATER) 25 GM ASD IR PRN IV Hydrocodone Bitart/Acetaminophen (NORCO 5/325 TA BLET (C-II)) 1 TAB Q6H PRN PRN PO Bisacodyl (DULCOLAX) 5 MG BID PRN PRN PO Bisacodyl (BISACODYL SUPP) 10 MG DAILY PRN PRN R ECTAL Docusate Sodium (COLACE) 100 MG BID PRN PRN PO Magnesium Hydroxide (MILK OF MAGNESIA) 30 ML MICHA LY PRN PRN PO Dietitian nutrition assessment The data set between the solid lines has been im ported from the dietitian's assessment. BMI Calculated: Nutrition related diagnosis: Nutrition diagnosis details: Nutrition problem: Nutrition etiology: Nutrition signs and symptoms: Nutrition prescription: Dietitian name: Assessment completed: Physical Exam General appearance: alert, awake Head/Eyes: atraumatic, normal eyelids/periorb., normocephalic ENT: normal dentition, normal ear left, normal e ar right, normal nose Neck: supple/no meningismus, no masses or swelli ng Cardiovascular: normal heart sounds, regular rat e rhythm Respiratory: clear to auscultation, no distress Abdomen: non-tender, normal bowel sounds , soft, no distention, no guarding, no mass/organomegaly, no rebound Extremities: no edema, not able to raise LLE Neuro/CUTTER WOODWIND REEDS: left hemiparesis, alert, oriented X 3 Skin: dry, normal temperature Psychiatry: normal affect, normal judgment/insig ht, normal mood Results Findings/Data: Laboratory Tests 12/18 12/18 12/18 12/17 12/17 1111 0610 0430 1935 1640 Chemistry Sodium (137 - 145 MMOL/L) 131 L Potassium (3.5 - 5.1 MMOL/L) 3.9 Chloride (98 - 107 MMOL/L) 99 Carbon Dioxide (22 - 30 MMOL/L) 23 Anion Gap (14 - 24 MMOL/L) 13 L BUN (9 - 20 MG/DL) 28 H Creatinine (0.66 - 1.25 MG/DL) 1.40 H Glomerular Filtr Rate 51 Glucose (74 - 106 MG/DL) 89 POC Glucose (60 - 99 MG/DL) 116 H 98 164 H 97 Calcium (8.4 - 10.2 MG/DL) 8.9 Laboratory Tests 12/18 0430 Coagulation INR (0.86 - 1.14) 1.3 H PT Patient/Control Mix (9.4 - 12.7 SECONDS) 14. 1 H Results: labs reviewed, vital signs reviewed Diagnosis, Assessment Plan Free Text DxA P Notes Free text DxA P notes: 1. S/P AVR (aortic valve replacement) post-op pain controlled. Continue warfarin 2. S/P CABG x 4 Continue current meds. CVS following 3. Acute left-sided weakness Suspect small acute pontine stroke per Dr Alicia has Pt continue to have dense l eft sided weakness with some improvement of the left upper extremity. CT head w and w/o contrast show ed pituitary macroedenoma invading the jen without mass effect. Neuro recommend MRI before further intervention of mass, however cardiovascular surgeon recommended no MRI until 6 weeks after s urgery. 4. 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 DM2 (diabetes mellitus, type 2) Continue Lantus 40u HS, and MDSSI Glucose control improved 6. HTN (hypertension), benign - continue amlodipine, lisinopril, hydralazine and Coreg, resumed per CT surgery 7. Thoracic aortic aneurysm, without rupture 8. Diabetes insipidus Excessive UOP wih increased thirst, suspect pos sible central DI related to macroedenoma Nephrology consulted - continue desmopressin na taran spray Na - 131, conitinue to monitor Na Consultants: cardiovascular surgery, hospitalist , neurology DVT PPX: warfarin Continue rehab. Quality: Gen Med Crit Care VTE Prophylaxis VTE prophylaxis initiated: yes Current Medications Current medication review: I attest that the foregoing medication list in t he medical record is true, accurate, and complete to the best of my knowled ge. Advanced Care Plan 65 or Older Discussed with: patient (full code) Discussion included: code status (full code) Faustino Mercado 12/18/21 2300: Attestations Teaching Physician Attestation F/U visit w/ resident: I saw the patient with the resident Dr Broderick PG Y1 and . . . agree with the resident's findings and plan. Electronically Signed by Anika Broderick MD R1 on 1 at 1547 Electronically Signed by Faustino Mercado MD on at 2300 [facility] #:[id number] END OF REPORT 2021-12-17 22:43:00-00:00 [id number] [place] [address] PATIENT NAME: GARCÍA MARRERO ADMIT DATE: 11/18 ACCOUNT NO: [id number] ROOM NO: Z.318 AGE: 66 REPORT TYPE: PROGRESS NOTE SEX: M ADMITTING PHYSICIAN:Mp Mendez MD ATTENDING PHYSICIAN:Mp Mendez MD DATE: 12/17/2021 CARDIAC SURGERY SERVICE The patient is seen at [facility] in rehabilitation unit. The patient currently is stable. The patient is making appropriate progre ss. The patient continued to improve the function of the left arm. Overall, t he patient is making good progress. Dictated By: Wil Aragon MD Date Dictated: 12/17/2021 22:43:17 Date Transcribed: 12/17/2021 23:07:17 RLM/AFS Receipt ID: [id number] Authenticated by Wil Aragon MD On 022 10:14:15 AM at 1014 PATIENT NAME: GARCÍA MARRERO [id number] 2021-12-17 17:15:00-00:00 [facility] ([facility] Hospitalist Progress Note REPORT#:[id number] REPORT STATUS: Signed DATE:12/17/21 TIME: 1715 PATIENT: GARCÍA MARRERO UNIT #: [id number] ROOM/BED: [address] : [address] AGE: 66 SEX: M ATTEND: Royal Mendez MD ADM AUTHOR: Billy Maxwell MD * ALL edits or amendments must be made on the [employer]/computer document * Subjective Chief complaint: follow up for medical management HPI: This is a 66 yo m who was admittd for elective A VR and 4-V CABG. 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 His CTA head and neck have been normal. BC of his chest wiring, titanium clipping, and pacing leads, MRI cannot be done until 6 weeks after surgery per cardiovascular surgeon.Per neurology , patient may have possible small pontine infarct due to mass effect of macr oedenoma. He's also been putting out large volume uri ne and having increased thirst, so yard stocker was consulted for suspected diab etes insipidus. Patient was discharged to inpatient rehab on December 15 in stable condition. Review of Systems All systems rev neg: except as marked Objective General VS/I O: Vital Signs: Date Time Temp Pulse Resp B/P B/P Pulse O2 O2 F low FiO2 Mean Ox Delivery Rate 12/17 1533 36.7 66 18 99/61 73.6 96 Room air 12/17 0655 36.9 73 16 109/71 83.4 98 Room air 12/17 0333 37.0 70 18 122/58 79.1 95 12/16 1954 65 17 130/76 94.2 96 24 hour I O ending at 0700: 12/17 0700 12/16 1900 Intake Total 600 Output Total 1000 800 Balance -1000 -200 Intake, Oral 600 Number 1 Bowel Movements Number 0 2 Incontinent Voids Number Voids 0 0 Output, Urine 1000 800 PATIENT WEIGHT: Weight (lb): 261 Weight (oz): 0 Weight (kg): 118.722124 Medications: Active Meds + DC'd Last 24 Hrs Desmopressin Acetate (DDAVP NASAL SPRAY) 1 SPRAY QPM NASAL (CKD) Warfarin Sodium (COUMADIN) 7.5 MG QPM PO Insulin Human Lispro (HumaLOG) MEDIUM DOSE SLIDI NG SCALE AC HS SUBQ Warfarin Sodium (COUMADIN) 6 MG QPM PO (DC) Clopidogrel Bisulfate (PLAVIX) 75 MG DAILY PO Levothyroxine Sodium (Synthroid) 125 MCG DAILY P O [id number] Ethyl Esters (LOVAZA) 1 GM DAILY PO (CKD) Glipizide (GLUCOTROL TAB) 5 MG BID AC PO Amlodipine Besylate (NORVASC TAB) 5 MG BID PO Aspirin (ASPIRIN EC) 81 MG BEDTIME PO Atorvastatin Calcium (LIPITOR) 80 MG BEDTIME PO Carvedilol (COREG) 6.25 MG Q12HR PO Docusate Sodium (COLACE) 100 MG BID PO Famotidine (PEPCID) 20 MG BID PO Fenofibrate (TRICOR) 108 MG BEDTIME PO Hydralazine HCl (APRESOLINE) 25 MG Q8HR PO Insulin Glargine (Lantus/Semglee) 40 UNITS BEDTI ME SUBQ Insulin Human Lispro (HumaLOG) MEDIUM DOSE SLIDI NG SCALE AC HS SUBQ (DC) Lisinopril (PRINIVIL) 40 MG BID PO (CKD) Ondansetron HCl (ZOFRAN ODT) 4 MG Q6H PRN PRN PO Acetaminophen (TYLENOL) 650 MG Q4H PRN PRN PO Dextrose/Water (DEXTROSE 50% IN WATER) 12.5 GM A SDIR PRN IV Dextrose/Water (DEXTROSE 50% IN WATER) 25 GM ASD IR PRN IV Hydrocodone Bitart/Acetaminophen (NORCO 5/325 TA BLET (C-II)) 1 TAB Q6H PRN PRN PO Bisacodyl (DULCOLAX) 5 MG BID PRN PRN PO Bisacodyl (BISACODYL SUPP) 10 MG DAILY PRN PRN R ECTAL Docusate Sodium (COLACE) 100 MG BID PRN PRN PO Magnesium Hydroxide (MILK OF MAGNESIA) 30 ML MICHA LY PRN PRN PO Dietitian nutrition assessment The data set between the solid lines has been im ported from the dietitian's assessment. BMI Calculated: Nutrition related diagnosis: Nutrition diagnosis details: Nutrition problem: Nutrition etiology: Nutrition signs and symptoms: Nutrition prescription: Dietitian name: Assessment completed: Physical Exam Head/Eyes: atraumatic, clear cornea, EOMI, rebecca l conjunctiva/sclera, normal eyelids/periorb., normocephalic, PERRL ENT: normal dentition, normal ear left, normal e ar right, normal nose, normal pharynx, normal sinus Neck: full range of motion, non-tender, normal thyroid, supple/no meningismus, no bruit/NL carotids, no JVD, no masses or swell ing Cardiovascular: regular rate rhythm Respiratory: clear to auscultation, no distress Abdomen: non-tender, normal bowel sounds , soft, no distention, no guarding, no hernia, no mass/organomegaly, no rebound Extremities: normal capillary refill, no calf te nderness, no clubbing, no cyanosis, no edema Musculoskeletal: normal insp ection, painless range of motion, straight leg raise neg, no CVA tenderness, no midline vertebral ten d, no muscle spasm Neuro/CUTTER WOODWIND REEDS: left hemiparesis, alert, oriented X 3 Results Findings/Data: Laboratory Tests 12/17 12/17 12/17 12/17 12/16 1640 1140 0649 0430 1956 Chemistry Sodium (137 - 145 MMOL/L) 132 L Potassium (3.5 - 5.1 MMOL/L) 4.2 Chloride (98 - 107 MMOL/L) 97 L Carbon Dioxide (22 - 30 MMOL/L) 22 Anion Gap (14 - 24 MMOL/L) 17 BUN (9 - 20 MG/DL) 25 H Creatinine (0.66 - 1.25 MG/DL) 1.40 H Glomerular Filtr Rate 51 Glucose (74 - 106 MG/DL) 109 H POC Glucose (60 - 99 MG/DL) 97 161 H 105 H 119 H Calcium (8.4 - 10.2 MG/DL) 9.8 Laboratory Tests 12/17 0430 Coagulation INR (0.86 - 1.14) 1.2 H PT Patient/Control Mix (9.4 - 12.7 SECONDS) 13. 5 H Laboratory Tests 12/16 2101 Urines Urine Osmolality (300 - 1200 MOS/KG) 178 L Diagnosis, Assessment Plan Free Text DxA P Notes Free text DxA P notes: 1. S/P AVR (aortic valve replacement) post-op pain controlled. Continue warfarin 2. S/P CABG x 4 Continue current meds. CVS following 3. Acute left-sided weakness Suspect small acute pontine stroke per Dr Alicia has Pt continue to have dense l eft sided weakness with some improvement of the left upper extremity. CT head w and w/o contrast show ed pituitary macroedenoma invading the jen without mass effect. Neuro recommend MRI before further intervention of mass, however cardiovascular surgeon recommended no MRI until 6 weeks after s urgery. 4. 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 DM2 (diabetes mellitus, type 2) Continue Lantus 40u HS, and MDSSI Glucos control improved 6. HTN (hypertension), benign - continue amlodipine, lisinopril, hydralazing and was Coreg resumed per CT surgery 7. Thoracic aortic aneurysm, without rupture 8. Diabetes insipidus Excessive UOP wih increased thirst, suspect pos sible central DI related to macroedenoma Nephrology consulted. MONITOR NA Consultants: cardiovascular surgery, hospitalist , neurology DVT PPX: WAFARIN Continue rehab. Quality: Gen Med Crit Care VTE Prophylaxis VTE prophylaxis initiated: yes Current Medications Current medication review: I attest that the foregoing medication list in t he medical record is true, accurate, and complete to the best of my knowled ge. Advanced Care Plan 65 or Older Discussed with: patient (full code) Discussion included: code status (full code) Electronically Signed by Billy Maxwell MD on 2 at 1717 RPT #:[id number] END OF REPORT 2021-12-16 20:07:00-00:00 [facility] ([facility]) Rehab Indiv Overall POC REPORT#:[id number] REPORT STATUS: Signed DATE:12/16/21 TIME: 2006 PATIENT: GARCÍA MARRERO UNIT #: [id number] ROOM/BED: [address] : 55 AGE: 66 SEX: M ATTEND: Royal Mendez MD ADM AUTHOR: Mp Mendez MD * ALL edits or amendments must be made on the [employer]/computer document * Individualized Overall POC HPI Impairment group: brain dysfunction NOTE Document ONLY ONE Impairment Group Brain dysfunction: nontraumatic Etiologic diagnosis: LEFT HEMIPLEGIA OF UNKNOWN ETIOLOGY Medical Expected Course Expected DC destination: Expected DC destination: Home Problem List/A P: 1. Aortic stenosis, severe 2. Coronary artery disease involving [place] cor onary artery 3. Thoracic aortic aneurysm, without rupture 4. DM2 (diabetes mellitus, type 2) 5. HTN (hypertension), benign 6. Obesity (BMI 30-39.9) 7. CKD (chronic kidney disease) stage 3, GFR 30 -59 ml/min 8. Hyperlipidemia 9. Suprasellar mass 10. Acute left-sided weakness 11. S/P AVR (aortic valve replacement) 12. S/P CABG x 4 Medical prognosis: good Medical prognosis details: p t motivation, family/caregiver support, cognition, D /C plan, financial resources Expected course of Tx: AVOID OTHER MEDICAL COMPLICATIONS AND ACTIVELY P ARTICIPATE IN INPATIENT REHAB PROGRAM FOR 180 MINUTES DAILY Functional Expected Course Functional expected course: The data set between the solid lines has been im ported from multidisciplinary team documentation: __ ANTICIPATED SERVICES IN ACUTE INPATIENT REHAB: DISCIPLINE Physical Therapy Occupational Therapy Speech Therapy INTENSITY (minutes/day) 90 90 FREQUENCY (days/week) 7 5 DURATION (# of days) 21 15 EXPECTED FUNCTIONAL OUTCOMES: CARE Rolling left and Partial/moderate asst (3) right discharge goal: CARE Sitting to Partial/moderate asst (3) lying discharge goal: CARE Lying to sitting Partial/moderate asst (3) on side of bed discharge goal: CARE Sitting to Partial/moderate asst (3) standing discharge goal: CARE Chair/bed to Partial/moderate asst (3) chair transfer discharge goal: CARE Car transfer Partial/moderate asst (3) discharge goal: CARE Walking 10 Partial/moderate asst (3) feet discharge goal: CARE Walking 50 feet Partial/moderate asst (3) with two turns discharge goal: CARE Walking 150 Partial/moderate asst (3) feet discharge goal: CARE Walking 10 feet on Environmental limitatio ns uneven surface discharge goal: CARE 1 step (curb) Partial/moderate asst (3) discharge goal: CARE 4 steps Not applicable discharge goal: CARE 12 steps Not applicable discharge goal: CARE Picking up Supervise/touch asst (4) object discharge goal: CARE [place] 50 feet Partial/moderate asst (3 ) with two turns discharge goal: CARE [place] 150 Partial/moderate asst (3) feet discharge goal: CARE Toileting hygiene Setup/clean-up only (5) discharge goal: CARE Transfer on/off toilet Setup/clean-up only (5) or commode discharge goal: CARE Eating discharge goal: Independent (6) CARE Oral hygiene Independent (6) discharge goal: CARE Shower/bathe Partial/moderate asst (3) self discharge goal: CARE Upper body Partial/moderate asst (3) dressing discharge goal: CARE Lower body Partial/moderate asst (3) dressing discharge goal: CARE Putting on/taking Partial/moderate asst (3 ) off footwear discharge goal: Bowel function goal: WILL FIGUEROA VE NORMAL BOWEL CONTINENCY BY ENCOURAGING TO USE THE TOILET Bladder function goal: WILL HAVE NORMAL BLADDER CONTINENCY BY ENCOURAGING TO USE THE TOILET _ ELOS Attestation: Based upon the review of clinical staff recommendations of frequency, duration and intensity and individual assessment of this patient, I estimate the following: Estimated length of stay: 21 DAYS MD Review/Recommendation Attestation: Based upon my physical evaluation of the patient and input from the interdisciplinary team members I have de veloped this interdisciplinary overall plan of care and determined the admission to the IRF is reasonable and necessary.The IOPOC will be updated weekly and m odified under my direction. Patient can be expected to actively participate in, and benefit from, an intensive rehab therapy prog tolu whose intensity is not provided in lower levels of care. Complex acute rehab needs: Custom therapy tx carlos n, New medical diagnosis, Postsurgery req mgt/care, Hospitalist consult, V TE Risk Electronically Signed by Mp Mendez MD on 04/08 at 2009 RPT #:[id number] END OF REPORT 2021-12-16 20:05:00-00:00 [id number] [place] [address] PATIENT NAME: GARCÍA MARRERO ADMIT DATE: 11/17 04/08 ACCOUNT NO: [id number] ROOM NO: Z.SI02 AGE: 66 REPORT TYPE: PROGRESS NOTE SEX: M ADMITTING PHYSICIAN:Wil Aragon MD ATTENDING PHYSICIAN:Wil Aragon MD DATE: LABORATORY DATA: Sodium 125, potassium 4.3, chlo ride 93, CO2 is 24, BUN 22, creatinine 1.2. Hemoglobin 10.2, white count 13. 1. OBJECTIVE: VITAL SIGNS: Temperature 96.7, pulse is 60, bloo d pressure is 118/69. HEENT: Head and face normal. NECK: No masses. CHEST: Symmetric chest wall. ABDOMEN: Nondistended, but obese. EXTREMITIES: No edema. NEUROLOGIC: He is moving his left arm so mewhat more as well as ambulating some with assistance. HOSPITAL COURSE: The at the bedside. She is aware of the fluid restriction. She did admit that she was giving h im more fluids yesterday because he was angrily adamant at her. I did adv ise her the nurses are trying to fluid restrict the potential implicat ions of low sodium and implications on his neurological outcome. She voiced understandi ng. This may be a duplicate dictation, so th ere may be errors and omissions in the dictation. REVIEW OF SYSTEMS: He is somewhat stoic. He did not complain of thirst. He did not complain of headache. He did not complai n of fevers, chills, nausea, vomiting, shortness of breath. Review of systems is otherwise negative on a 12-point scale. IMPRESSION: 1. Low serum sodium in the background of increas ed water drinking and DDAVP. 2. Mild renal insufficiency. 3. Severe left-sided weakness. 4. Pituitary microadenoma. 5. Increased water drinking with behavioral comp onent of polydipsia. PLAN: At this time, DDAVP has been completely st opped given the inability to control his water intake despite the fluid restr iction. Nurses are aware, counseled nurses. Family is aware, counseled fam chelsie. The patient is aware. He is fully understandable . No changes. PATIENT NAME: GARCÍA MARRERO [id number] Dictated By: Jhon Villegas MD Date Dictated: 12/16/2021 20:05:06 Date Transcribed: 12/16/2021 21:34:40 MARTIN/TIMOTEO Receipt ID: [id number] Authenticated by Jhon Villegas MD On 12/19/2021 12:20:57 AM Electronically Signed by Jhon Villegas MD on 07/07 at 1220 PATIENT NAME: GARCÍA MARRERO [id number] 2021-12-16 14:14:00-00:00 [facility] ([facility]) Hospitalist Consultation REPORT#:[id number] REPORT STATUS: Signed DATE:12/16/21 TIME: 1414 PATIENT: GARCÍA MARRERO UNIT #: [id number] ROOM/BED: [address] : 55 AGE: 66 SEX: M ATTEND: Royal Mendez MD ADM AUTHOR: Billy Maxwell MD * ALL edits or amendments must be made on the [employer]lexis [employer]/computer document * History of Present Illness Chief complaint: follow up for medical management PCP: PCP: Golden Awad MD HPI: This is a 66 yo m who was admittd for elective A VR and 4-V CABG. 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 His CTA head and neck have been normal. BC of his chest wiring, titanium clipping, and pacing leads, MRI cannot be done until 6 weeks after surgery per cardiovascular surgeon.Per neurology , patient may have possible small pontine infarct due to mass effect of macr oedenoma. He's also been putting out large volume uri ne and having increased thirst, so yard stocker was consulted for suspected diab etes insipidus. Patient was discharged to inpatient rehab on December 15 in stable condition. History - Adult longitudinal Past medical history: Reports: Coronary artery disease, Diabetes melli tus, Hypertension. Additional surgical history: Bilateral knee surgery. Right nasal/facial surgery. Additional family history: Mother o heart disease. Father of alcoholic cirrhosis. Alcohol use: Denies EtOH use Drug use: Denies recreational drugs Smoking status for patients 13 years old or olde r: Never Smoker Other social history: Employed Additional social history: ; one daughter. Allergies: Coded Allergies: No Known Allergies (01/10/19) Occupation: [employer] employee. Review of Systems All systems rev neg: except as marked Objective VS/I O Last Documented: Result Date Time Pulse Ox 96 12/16 720 B/P 119/71 12/16 720 B/P Mean 86.9 12/16 720 Temp 36.3 12/16 720 Pulse 68 12/16 720 Resp 18 12/16 720 O2 Delivery Room air 12/16 433 24 hour I O ending at 0700: 12/16 1900 Intake Total 500 Output Total 750 Balance -250 Intake, Oral 500 Number 0 Bowel Movements Number 0 Incontinent Voids Number Voids 0 Output, Urine 750 Patient 118.388 kg Weight General appearance: alert, awake Head/Eyes: atraumatic, clear cornea, EOMI, rebecca l conjunctiva/sclera, normal eyelids/periorb., normocephalic, PERRL ENT: normal dentition, normal ear left, normal e ar right, normal nose, normal pharynx, normal sinus Neck: full range of motion, non-tender, normal thyroid, supple/no meningismus, no bruit/NL carotids, no JVD, no masses or swell ing Cardiovascular: regular rate rhythm Respiratory: clear to auscultation, no distress Abdomen: non-tender, normal bowel sounds , soft, no distention, no guarding, no hernia, no mass/organomegaly, no rebound Extremities: normal capillary refill, no calf te nderness, no clubbing, no cyanosis, no edema Musculoskeletal: normal insp ection, painless range of motion, straight leg raise neg, no CVA tenderness, no midline vertebral ten d, no muscle spasm Neuro/CUTTER WOODWIND REEDS: left hemiparesis, alert, oriented X 3 Results Findings/Data: Laboratory Tests: 12/16 12/16 12/16 12/16 1124 1044 0745 0717 Chemistry Sodium (137 - 145 MMOL/L) 126 L Potassium (3.5 - 5.1 MMOL/L) 4.1 Chloride (98 - 107 MMOL/L) 93 L Carbon Dioxide (22 - 30 MMOL/L) 26 Anion Gap (14 - 24 MMOL/L) 11 L BUN (9 - 20 MG/DL) 26 H Creatinine (0.66 - 1.25 MG/DL) 1.30 H Glomerular Filtr Rate 55 Glucose (74 - 106 MG/DL) 162 H POC Glucose (60 - 99 MG/DL) 136 H 112 H Calcium (8.4 - 10.2 MG/DL) 9.0 Coagulation INR (0.86 - 1.14) 1.1 PT Patient/Control Mix (9.4 - 12.7 SECONDS) 12. 4 12/15 2208 Chemistry POC Glucose (60 - 99 MG/DL) 116 H Diagnosis, Assessment Plan Free Text DxA P Notes Free Text DxA P Notes: 1. S/P AVR (aortic valve replacement) post-op pain controlled. Continue warfarin 2. S/P CABG x 4 Continue current meds. CVS following 3. Acute left-sided weakness Suspect small acute pontine stroke per Dr Alicia has Pt continue to have dense l eft sided weakness with some improvement of the left upper extremity. CT head w and w/o contrast show ed pituitary macroedenoma invading the jen without mass effect. Neuro recommend MRI before further intervention of mass, however cardiovascular surgeon recommended no MRI until 6 weeks after s urgery. 4. 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 DM2 (diabetes mellitus, type 2) Continue Lantus 40u HS, and MDSSI Glucos control improved 6. HTN (hypertension), benign - continue amlodipine, lisinopril, hydralazing and was Coreg resumed per CT surgery 7. Thoracic aortic aneurysm, without rupture 8. Diabetes insipidus Excessive UOP wih increased thirst, suspect pos sible central DI related to macroedenoma Nephrology consulted. MONITOR NA Consultants: cardiovascular surgery, hospitalist , neurology DVT PPX: WAFARIN Continue rehab. Quality: Gen Med Crit Care VTE Prophylaxis VTE prophylaxis initiated: yes Current Medications Current medication review: I attest that the foregoing medication list in [facility] medical record is true, accurate, and complete to the best of my knowled ge. Advanced Care Plan 65 or Older Discussed with: patient (full code) Electronically Signed by Billy Maxwell MD on 2 at 1509 [facility] #:[id number] END OF REPORT 2021-12-16 12:08:00-00:00 [id number] [address] PATIENT NAME: GARCÍA MARRERO ADMIT DATE: 11/17 04/08 ACCOUNT NO: [id number] ROOM NO: [id number].[id number] AGE: 66 REPORT TYPE: PROGRESS NOTE SEX: M ADMITTING PHYSICIAN:Wil Aragon MD ATTENDING PHYSICIAN:Wil Aragon MD DATE: 12/15/2021 SUBJECTIVE: The patient was seen and examined, r esting comfortably, no significant changes. The patient's was at t he bedside. No issues of nausea, vomiting, fevers, ch ills, shortness of breath, or headache were voiced. In conversation with the pat jazmine's on the issues of fluid restriction, the patient's did admit to giving her water quite frequently yesterday. She said she was told by the staff not to give it, but she did because her requested it. I did go on to explain to her as well as that he was listening the risks to him a nd the issues surrounding the water restrictions and impact on the brain because sodium drops. He voi seferino an understanding. LABORATORY DATA: Sodium 125, potassium 4.3, chlo ride 93, CO2 is 24, BUN 32, creatinine 1.2. Hemoglobin 10.2, white count 13. 1. OBJECTIVE: VITAL SIGNS: Blood pressure is 118/69, pulse of $$$, temperature 96.7. HEENT: Head and face normal. NECK: No masses. CHEST: Symmetric chest wall. ABDOMEN: Nondistended. EXTREMITIES: No edema. NEUROLOGIC: Intact. Left-sided weakness, slightl y improved, ambulating somewhat as well with the nurses. IMPRESSION: 1. Low serum sodium, likely due to the DDAVP and excessive water drinking, which is a component of his behavioral and thirs t drive combined. 2. Microadenoma. 3. Probably presumptive diagnosis of diabetes in sipidus. PLAN: At this time, consulted by the hospitalist service that no forestry aid touches foot in this hospital. T he patient now needs rehabilitation after his stroke and CABG. Neuros urgery recommended outpatient followup for the microadenoma. In the interim, t he polydipsia and polyuria appears to be compensated for some time; however, the patient seems to be less than willing to adjust his behavioral aspects of his frequent water drinking, which play a part in his continued water drinkin g on the medications. We will have to monitor him closely and see if placing a fluid restriction on him helps to reinforce, so we can restart the discontinued DDAVP. Dictated By: Jhon Villegas MD PATIENT NAME: GARCÍA MARRERO [id number] Date Dictated: 12/16/2021 12:08:41 Date Transcribed: 12/16/2021 13:32:17 RP/TIMOTEO Receipt ID: [id number] Authenticated and Edited by Jhon Villegas MD On 12/19/21 12:20:48 AM Electronically Signed by Jhon Villegas MD on 07/07 at 1223 PATIENT NAME: GARCÍA MARRERO [id number] 2021-12-16 10:57:00-00:00 [id number] [place] [address] PATIENT NAME: GARCÍA MARRERO ADMIT DATE: 11/18 ACCOUNT NO: [id number] ROOM NO: [facility] AGE: 66 REPORT TYPE: HISTORY AND PHYSICAL SEX: M ADMITTING PHYSICIAN:Mp Mendez MD ATTENDING PHYSICIAN:Mp Mendez MD ADMISSION DATE: 12/15/2021 18:39:00 ADMISSION HISTORY AND PHYSICAL REASON FOR ADMISSION: This 66-year-old male was seen on 12/15/2021 for admission for comprehensive inpatient rehabilita tion for an acute left hemiplegia of uncertain etiology following quadr uple aortocoronary artery bypass graft surgery and aortic valve replacemen t with a bioprosthesis performed on 12/06/2021. PRIMARY PROBLEM: Now this pa tient has a long history of coronary artery disease and had undergone multiple coronary stent proced ures. He underwent right and left heart catheterization r ecently for multivessel obstructive coronary artery disease and severe aortic st enosis. He was electively admitted to this hospital on 12/06/2021 to undergo vern druple aortocoronary artery bypass graft surgery and aortic valve replacement with a bioprosthesis. Bry valles was doing well until 12/08/2021, when it was note d that he was having difficulty moving his left side and was leaning towards the left when ambulating . 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 The patient's neurolog ical condition continued to worsen until he had almost complete left hemiple ben. He underwent subsequent serial brain CT scans, which continued to show no evidence of an ischemic lesion to explain his hemiplegia. His hemiplegia then i mproved somewhat with more return in the left upper extremity, particularly in the distal muscles, but still no return in the left lower extremity. The patient underwent a CTA of the brain, which showed no signi ficant obstructive lesions or ischemic changes. The neurologist thought that the patient might have had a tiny pontine ischemic stroke and wished to obtain an MRI of the brain with and without contrast to determine if there were an ischemic lesion and t o further characterize the pituitary macroadenoma, which seemed to be invad ing the right cavernous sinus area and possibly encroaching on the mitchell. The M RI was to be postponed until the cardiothoracic surgeon felt it would be safe . The patient was also seen by Nephrology because of history of chronic polydipsia and polyuria, which had intensified recently. e yard stocker suspected diabetes insipidus and put the patient 4 time on DDAVP and also fluid restrictions. The yard stocker recommended an ou tpatient Endocrinology consultation to further investigate the patient' s symptoms. The patient developed acute hyponatremia in the last two day s with serum sodium dropping from 134 to 125. PATIENT NAME: GARCÍA MARRERO [id number] The patient was referred for occupational therap y and physical therapy for evaluations and mobilization. Reportedly, the pa tient was premorbidly independent in all community mobility in both basic and instrumental activities of daily living. Presently, the patient is requi ring total assistance for all transfers and total assist for ambulation and ac tivities of daily living he requires supervision for feeding and grooming an d hygiene, maximal assist for toileting and bathing and maximal assist for upp er body dressing, requiring total assist for lower body dressing. PAST MEDICAL HISTORY: The patient has diabetes a nd hypertension. He also has hyperlipidemia, hypothyroidism, vitamin B12 defi ciency and a history of sciatica. He has also undergone knee surgeries, carpal tunnel releases and Lasix procedures of both eyes. He is a nonsmoker and a nondrinker and has no known allergies. 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 REVIEW OF SYSTEMS: The patient reports no headac hes or dizziness. He has no upper respiratory congestion or rhinorrhea. Ther e is no rash or itching. He has had no bruising or bleeding. He does have postoperative thoracotomy, chest discomfort, and reports no cough or sput um production. He had a Mina catheter in for a few days, but is now voiding on the bedpan with no frequency, urgency or dysuria. As noted above, he has had polydipsi a and polyuria for several years. GASTROINTESTINAL: He reports no abdominal pain, nausea, vomiting, diarrhea or constipation. MUSCULOSKELETAL: He reports no joint pain or swe lling. PHYSICAL EXAMINATION: GENERAL: This is a well-developed, well-nourishe d, overweight, middle-aged white male, lying in bed, who is awake, alert, o riented x3. Affect, pleasant. Speech intelligible and fluent. Thought content reasonable relevant and appropriate. HEENT: Normocephalic, atraumatic. Pupils equal, react to light and accommodate. Extraocular movements are intact. N asopharyngeal mucosa moist. Mouth good dentition. Tongue unremarkable. Oroph arynx is clear. NECK: No thyromegaly or carotid bruits. CERVICAL SPINE: Supple. CHEST: Breath sounds decreased bilaterally. No c rackles are heard. HEART: S1, S2, normal rate and rhythm regular. N o murmurs or gallops heard. ABDOMEN: Protuberant, soft and nontender with no organomegaly. Bowel sounds normally active. EXTREMITIES: No distal cyanosis, clubbing or rema ma. Good peripheral pulses. Range of motion within functional limits. No christine ss deformities evident. NEUROLOGIC: Cranial nerves II-XII show s ome left facial weakness. Sensation to light touch appears to be preserved. Strength no rmal in the right upper and lower extremities. Left upper extremity shows some weak movement in the distal muscles. Left lower extremity shows no voluntary movement. No spasticity or rigidity, tremors or dysmetria is evident. DIAGNOSES: 1. Acute left hemiplegia, uncertain etiology. PATIENT NAME: GARCÍA MARRERO [id number] 2. Pituitary macroadenoma. 3. Status post recent quadruple aortocoronary ar kate bypass graft surgery for severe multivessel obstructive coronary artery d isease. 4. Status post aortic valve bioprosthetic replac ement for severe aortic stenosis. 5. Diabetes mellitus. 6. Hypertension. 7. Hyperlipidemia. 8. Polydipsia and polyuria. 9. Recent development of hyponatremia. REHABILITATION PHYSICIAN ASSESSMENT AND TREATMEN T PLAN: This patient has developed severe left hemipl egia, which has resulted in significant deficits in mobility and self-care capability. He wi ll benefit from an intensive inpatient rehabilitation program focused on mobili zation and mormon of function. He will receive occupational therapy for ADL traini ng and physical therapy for general conditioning and specific mobility train ing related to his left hemiplegia. In addition, he will be seen by hari packer for a cognitive linguistic screen and a swallowing assessment. F felicitally, clinical psychology will see him for psychosocial assessment and ini tiation of appropriate psychological interventions to facilitate his pa rticipation in intensive physical rehabilitation program and to promote a successful rehabilitation outcome. The patient's present medical condition is accur ately represented in the preadmission screening evaluation comple asaf earlier yesterday before admission to the rehabilitation unit. Likewise, hi s functional status does not appear to have changed materially from that described in t he preadmission screening evaluation in reference to above. This patient has a fair to good prognosi s to make meaningful gains in mobility and self-care and be able to return to his premo rbid living situation functioning most likely with some degree of animal caregiver assistance. He will be evaluated by the multidisciplinary rehabilitatio n team and then an individualized overall plan of care will be developed to guide his treatment on the rehabilitation unit. He will be disc ussed at his initial interdisciplinary team conference to determine his function potent ial, establish short and long-term rehabilitation objectives, confirm his discharge plan and project a definite discharge date. The patient will likely reach a level of anywher e from minimal assist to modified independent in [facility] and activities of daily living by his discharge from the inpatient rehabilitation unit , which should occur after estimated length of stay of 21 days. Dictated By: Mp Mendez MD Date Dictated: 12/16/2021 10:57:42 Date Transcribed: 12/16/2021 16:18:54 MELLY/BRANNON PATIENT NAME: GARCÍA MARRERO [id number] Receipt ID: [id number] Authenticated and Edited by Mp Mendez MD O n 12/16/21 7:57:33 PM Electronically Signed by Mp Mendez MD on at 0759 PATIENT NAME: GARCÍA MARRERO [id number] 2021-12-15 17:26:00-00:00 [facility] ([facility] Hospitalist Progress Note REPORT#:[id number] REPORT STATUS: Signed DATE:12/15/21 TIME: 1726 PATIENT: GARCÍA MARRERO UNIT #: [id number] ROOM/BED: [address] : [address] AGE: 66 SEX: M ATTEND: Ady Aragon MD ADM AUTHOR: Billy Maxwell MD * ALL edits or amendments must be made on the [employer]/computer document * Subjective Chief complaint: s/p ACB and AVR HPI: POD#5 ACB and AVR No acute events overnight. C ontinues to have left sided weakness, weak hospice consultant LUE and unable to move LLE, noticable left sided fac ial droop. Pt remains intermittently paced. Free Text Subj Notes Free Text Subj Notes: DOING WELL. NO ACUTE EVENT. VSS. NA 125 Review of Systems All systems rev neg: except as marked Objective General VS/I O: Vital Signs: Date Time Temp Pulse Resp B/P B/P Pulse O2 O2 F low FiO2 Mean Ox Delivery Rate 12/15 1500 63 25 116/68 84 94 12/15 1430 71 22 137/78 101 100 12/15 1400 72 19 134/83 104 12/15 1330 68 18 142/87 109 99 12/15 1300 68 135/84 105 97 12/15 1230 59 129/72 95 98 12/15 1200 62 16 124/71 93 100 12/15 1158 35.9 60 18 100 Room air 12/15 1151 64 23 120/68 89 12/15 1130 61 15 111/70 86 99 12/15 1105 68 118/69 89 98 12/15 1100 62 19 118/68 89 97 12/15 1030 65 19 144/75 101 98 12/15 1000 68 20 137/75 99 98 12/15 0930 70 20 139/76 98 99 30 0900 73 21 161/86 114 98 12/15 0835 100 Room air 21 12/15 0830 63 16 146/72 102 96 12/15 0800 67 19 144/77 103 98 12/15 0800 36.0 66 20 98 Room air 12/15 0730 69 16 147/80 106 98 12/15 0728 69 19 152/81 102 99 12/15 0545 72 12/15 0450 70 18 132/68 93 99 12/15 0412 70 142/82 102 80 12/15 0400 36.4 12/15 0344 75 12/15 0342 71 14 141/75 97 12/15 0312 67 113/67 86 12/15 0242 72 16 121/78 94 12/15 0212 71 118/69 88 12/15 0142 72 20 127/73 92 97 12/15 0112 72 106 93 12/15 0042 70 154/81 108 95 12/15 0012 71 146/79 103 94 12/15 0000 35.9 12/14 2342 68 143/80 105 97 12/14 2312 73 156/90 115 97 12/14 2242 72 154/74 103 98 12/14 2212 71 110/92 98 98 12/14 2156 71 12/14 2142 66 115/75 90 98 12/14 2112 72 141/84 106 97 12/14 2042 71 145/75 102 97 12/15 2011 70 139/86 106 97 12/14 1953 35.6 12/14 1942 69 135/70 97 12/14 1917 71 142/80 102 12/14 1912 72 155/101 122 12/14 1845 70 144/81 108 96 12/14 1832 67 148/77 102 99 12/14 1800 67 70 12/14 1745 63 99 24 hour I O ending at 0700: 12/15 0700 12/14 1900 Intake Total 500 200 Output Total 3070 1850 Balance -2570 -1650 Intake, Oral 500 200 Number 2 Bowel Movements Output, Urine 3070 1850 PATIENT WEIGHT: Weight (lb): 261 Weight (oz): 8.76 Weight (kg): 118.388 Medications: Active Meds + DC'd Last 24 Hrs Warfarin Sodium (COUMADIN) 6 MG QPM PO Desmopressin Acetate (DDAVP NASAL SPRAY) 1 SPRAY DAILY NASAL (DC) Bisacodyl (BISACODYL SUPP) 10 MG ONCE ONE RECTAL (DC) Polyethylene Glycol (MIRALAX) 17 GM DAILY PO Carvedilol (COREG) 6.25 MG Q12HR PO Warfarin Sodium (COUMADIN) 5 MG QPM PO (DC) Hydralazine HCl (APRESOLINE) 10 MG Q6H PRN PRN I V Lisinopril (PRINIVIL) 40 MG BID PO (CKD) Hydralazine HCl (APRESOLINE) 25 MG Q8HR PO Amlodipine Besylate (NORVASC TAB) 5 MG BID PO Benzocaine/Menthol (Cepacol Sore Throat Lozenge) 1 TAB Q2H PRN PRN MM ( CKD) Docusate Sodium (COLACE) 100 MG BID PO Insulin Glargine (Lantus/Semglee) 40 UNITS BEDTI ME SUBQ Insulin Human Lispro (HumaLOG) MEDIUM DOSE SLIDI NG SCALE AC HS SUBQ Nicardipine HCl (CARDENE I.V.) 50 MG ASDIR IV (C KD) Sodium Chloride (SODIUM CHLORIDE 0.9%) 230 ML Aspirin (ASPIRIN EC) 81 MG BEDTIME PO Clopidogrel Bisulfate (PLAVIX) 75 MG DAILY PO Famotidine (PEPCID) 20 MG BID PO [id number] Ethyl Esters (LOVAZA) 1 GM DAILY PO (CKD) Atorvastatin Calcium (LIPITOR) 80 MG BEDTIME PO Fenofibrate (TRICOR) 108 MG BEDTIME PO Levothyroxine Sodium (Synthroid) 125 MCG DAILY@0 630 PO Meperidine HCl (DEMEROL (C-II)) 25 MG Q4H PRN CO N IM Meperidine HCl (DEMEROL (C-II)) 50 MG Q4H PRN CO N IM Calcium Gluconate/Sodium Chloride (Calcium Gluco scott 1 GM/NS 100 mL) 100 ML ASDIR PRN IV Dobutamine HCl/Dextrose (DOBUTamine HCL IN DEXTR OSE) 250 ML ASDIR PRN IV Epinephrine (EPINEPHrine/NS 4MG/250ML) 250 ML DIR PRN IV Hydrocodone Bitart/Acetaminophen (NORCO 5/325 TA BLET (C-II)) 1 TAB Q4H PRN PRN PO Hydrocodone Bitart/Acetaminophen (NORCO 5/325 TA BLET (C-II)) 2 TAB Q4H PRN PRN PO Lidocaine HCl/Dextrose (Lidocaine 0.4% in D5w So ln) 500 ML ASDIR PRN IV (CKD) Magnesium Sulfate (MAG SULFATE 2GM PREMIX) 50 ML ASDIR PRN IV Magnesium Sulfate/Dextrose (Magnesium Sulfate) 1 00 ML ASDIR PRN IV Nicardipine HCl (CARDENE I.V.) 25 MG ASDIR PRN I V (CKD) Sodium Chloride (SODIUM CHLORIDE 0.9%) 250 ML Ondansetron HCl (ZOFRAN) 4 MG Q8H PRN PRN IV Potassium Chloride (Potassium Chloride) 50 ML DIR PRN IV Dextrose/Water (DEXTROSE 50% IN WATER) 12.5 GM A SDIR PRN IV Dextrose/Water (DEXTROSE 50% IN WATER) 25 GM ASD IR PRN IV Nicardipine HCl (CARDENE I.V.) 25 MG ASDIR PRN I V (CKD) Sodium Chloride (SODIUM CHLORIDE 0.9%) 250 ML Sodium Bicarbonate (Sodium Bicarbonate) 50 MEQ A SDIR PRN IV Acetaminophen (TYLENOL) 650 MG Q4H PRN PRN PO Magnesium Hydroxide (MILK OF MAGNESIA) 30 ML ASD IR PRN PO Zolpidem Tartrate (AMBIEN (C-IV)) 5 MG BEDTIME P RN PRN PO Dietitian nutrition assessment The data set between the solid lines has been im ported from the dietitian's assessment. BMI Calculated: 35.4 Nutrition related diagnosis: Nutrition diagnosis details: Nutrition problem: INCREASED ENERGY NEEDS Nutrition etiology: THE ROLE PROTEIN AND , ENERG Y IN RECOVERY Nutrition signs and symptoms: S/P CABG Nutrition prescription: - CONTINUE 5 CCD DIABETI C DIET. - CONTINUE TO MEET AT LEAST 75% OF ESTIMATED ENERGY AND PROTEIN DAILY NEEDS. Dietitian name: Kylie [place], DIET Assessment completed: 12/13/21 Physical Exam Head/Eyes: atraumatic, normal eyelids/periorb. ENT: moist mucosal membranes, normal dentition, Maynard gas catheter Cardiovascular: normal heart sounds, reg ular rate rhythm, no murmur, AV pacing Respiratory: aerating well, symmetric expansion Abdomen: non-tender, soft Genitourinary: urinary catheter Extremities: moves all, no clubbing, no cyanosis Neuro/CUTTER WOODWIND REEDS: left hemiparesis, alert, oriented X 3 , normal speech Skin: dry, normal temperature Psychiatry: unable to evaluate Results Findings/Data: Laboratory Tests 12/15 12/15 12/15 12/15 12/14 1703 1156 0724 0445 2109 Chemistry Sodium (137 - 145 MMOL/L) 125 L Potassium (3.5 - 5.1 MMOL/L) 4.3 Chloride (98 - 107 MMOL/L) 93 L Carbon Dioxide (22 - 30 MMOL/L) 24 BUN (9 - 20 MG/DL) 22 H Creatinine (0.66 - 1.25 MG/DL) 1.20 Glomerular Filtr Rate > 60 Glucose (74 - 106 MG/DL) 139 H POC Glucose (60 - 99 MG/DL) 142 H 140 H 136 H 1 74 H Calcium (8.4 - 10.2 MG/DL) 9.0 Laboratory Tests 12/15 0704 Coagulation INR (0.86 - 1.14) 1.1 PT Patient/Control Mix (9.4 - 12.7 SECONDS) 11. 9 Laboratory Tests 12/15 0445 Hematology WBC (3.8 - 9.8 K/MM3) 13.1 H RBC (3.95 - 5.67 M/MM3) 3.45 L Hgb (12.4 - 16.7 G/DL) 10.2 L Hct (35.9 - 49.5 %) 29.8 L MCV (81.7 - 96.1 fL) 86 MCH (27.6 - 33.2 pg) 29.6 MCHC (32.9 - 35.5 %) 34.2 RDW (12.1 - 15.2 %) 12.4 Plt Count (129 - 368 K/MM3) 314 MPV (7.4 - 10.4 fl) 9.7 Neut % (Auto) (43 - 75 %) 72.1 Lymph % (Auto) (14 - 44 %) 16.5 [place] % (Auto) (4 - 13 %) 8.2 Eos % (Auto) (0 - 6 %) 1.5 Baso % (Auto) (0 - 2 %) 0.2 Neut # (Auto) (2.0 - 7.6 K/mm3) 9.45 H Lymph # (Auto) (1.0 - 3.8 K/mm3) 2.16 [place] # (Auto) (0.1 - 0.8 K/mm3) 1.08 H Eos # (Auto) (0.0 - 0.2 K/mm3) 0.20 Baso # (Auto) (0.0 - 0.2 K/mm3) 0.03 Immature Gran % (0.0 - 2.0 %) 1.5 Nucleated RBC % (0 - 1.0 %) 0.0 Nucleated RBCs # (Man) (0.0 - 0.1 K/mm3) 0.00 Laboratory Tests 12/15 1630 Serology SARS-CoV-2 Ag (Rapid) (Negative) NEGATIVE Laboratory Tests 12/15 1330 Urines Urine Osmolality (300 - 1200 MOS/KG) 574 Radiology data: Recent Impressions: RADIOLOGY - XR CHEST 1V 12/15 1300 Report Impression - Status: SIGNED Entered: 12/15/2021 1313 IMPRESSION: 1. Improving CHF. Impression By: [email or web address] - Jose Luis Don MD Diagnosis, Assessment Plan Problem List/A P: 1. S/P AVR (aortic valve replacement) POD#4, post-op pain controlled 2. S/P CABG x 4 Clinically compensated 3. Acute left-sided weakness Suspect small acute pontine stroke per Dr Alicia has Pt continue to have dense l eft sided weakness, but slight movement of left hand today. CT head w and w/o con trast showed pituitary macroedenoma invading the jen without mass effect. 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 No MRI for next 4-[address] Aragon Pt will benefit from outpt neurosurgery evaluat ion once fully recovered from his surgery 5. DM2 (diabetes mellitus, type 2) Increase basal insulin lantus 40 unit tonight, serum glucoe well controlled Pt has increased urine output with incr eased thirst, suspect possible central DI 6. HTN (hypertension), benign BP elevated on cardene gtt. - continue amlodipine, and lisinopril. WOuld add hydralazine 25 tid for better controlled - hold coreg due to mild bradycardia 7. Thoracic aortic aneurysm, without rupture 8. Diabetes insipidus Excessive UOP wih increased thirst, suspect pos sible central DI related to macroedenoma c/s nephrology for further w/u Consultants: cardiovascular surgery, hospitalist , neurology Free Text DxA P Notes Free text DxA P notes: Problem List/A P: 1. S/P AVR (aortic valve replacement) post-op pain controlled. wafarin started. 2. S/P CABG x 4 clinically compensated 3. Acute left-sided weakness Suspect small acute pontine stroke per Dr Alicia has Pt continue to have dense l eft sided weakness, but slight movement of left hand today. CT head w and w/o con trast showed pituitary macroedenoma invading the jen without mass effect. Neuro recommend MRI before further intervention of mass, due to current condition unable to obtain 4. 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 DM2 (diabetes mellitus, type 2) Continue Lantus 40u HS, and MDSSI Glucos control improved 6. HTN (hypertension), benign - continue amlodipine, lisinopril, hydralazing and was Coreg resumed per CT surgery 7. Thoracic aortic aneurysm, without rupture 8. Diabetes insipidus Excessive UOP wih increased thirst, suspect pos sible central DI related to macroedenoma Nephrology consulted. MONITOR NA Consultants: cardiovascular surgery, hospitalist , neurology DVT PPX: WAFARIN DESP: IPR Quality: Gen Med Crit Care VTE Prophylaxis VTE prophylaxis initiated: yes Current Medications Current medication review: I attest that the foregoing medication list in t he medical record is true, accurate, and complete to the best of my knowled ge. Advanced Care Plan 65 or Older Discussed with: patient Discussion included: code status (full code) Electronically Signed by Billy Maxwell MD on 2 at 1727 RPT #:[id number] END OF REPORT 2021-12-15 16:00:00-00:00 [facility] ([facility] Rehab Preadmission Screen REPORT#: REPORT STATUS: DATE:12/15/21 TIME: 1600 PATIENT: GARCÍA MARRERO UNIT #: ROOM: BED: : 55 AGE: 66 SEX: M ATTEND: Royal Mendez MD PROJECTED ADM AUTHOR: Mp Mendez MD REP SRV REP SRV TM: 1600 * ALL edits or amendments must be made on the [employer]lex[employer]/computer document * IRF Preadmission Screen Information From CRS PAS CRS PAS documentation: The data set between the solid lines has been im ported from CRS PAS documentation. PREADMISSION INFORMATION: DEMOGRAPHICS: Assessment date: 12/15/21 Assessment time: 1310 Patient has an Advanced Directive: No Content of advance directive/living will/plan of care: Copy of advance directive on chart: Referring physician: WIL ARAGON MD Primary care provider: GOLDEN AWAD MD Consulting physician(s): MADALYN LOW MD (NEURO) JHON VILLEGAS MD (NEPHROLOGY ) AIDEE ARMSTRONG MD (CARDIO) BILLY MAXWELL MD (IM) Referral contact name: LOLA YOU Referral contact number: [phone] Referring setting: [facility] Room number: SICU-2 IMPAIRMENT GROUP: Impairment group: Stroke left body right brain Etiologic diagnosis: CVA WITH LEFT SIDE WEAKNESS REVIEW OF MED CONDITIONS: Date of onset: 12/06/21 Current surgery date and type: CABGX 4-12/06/21 Active comorbid conditions: S/P AVR, S/P CABG X 4, ACUTE LEFT SIDE WEAKNESS, DM2 , HTN, THROACIC AORTIC ANEURYSM , WITHOUT RUPTUR E Past medical and surgical hi story: Past medical history is contributory for CAD, HTN, DM2, and severe aortic stenosis Had major surgery within 100 days of admission: Yes Risk for medical/clinical complications: Anemia, Arrhythmia, Aspiration, BP fluctuation, Blood sugar fluctuation, Cardiac in stability, Constipation, DVT, Depression, Electrolyte imbalance, Hypoxia, Inci sional dehiscence, Infection, Injury d/t falls, Respiratory insufficie ncy, Skin breakdown, Urinary retention Acute hospital stay summary: PLOF: Patient was completely independent with ADLs, IADLs and for functional mobility. Pt did not ow n any AD. Patient lives with spouse in [facility] with walk in shower. Patient is a 66-year-old male admitted to [facility] on 12/06/21 for CABG x 4 then was bought to ICU for monitoring post op. Per hospitalist note, patient was intuba asaf, but awake and following commands. On 12/08/21, the patient was reported being up in chair and observed to lean towards his left side and required more assistance in getting OOB. Eventually, patient's condition worsened to the paint that h e was unable to move his left side. Neurology was consulted. Active comorbidit ies include S/P AVR, S/P CABG x 4, acute left side weakness, DM2, HTN, and tho racic aortic aneurysm without rupture. The plan initially was to monitor left side weakness, continue Plavix, statin, and to start lisinopril. On 12/10/21, Bra in CT indicated "age- indeterminate paramedian posterior right frontal lobe infarct." Patient continues to have left side weakness, weakened hospice consultant LUE, unable to move LLE, and also a noticeable left sided facial droop. Patie nt also found to have suprasellar mass per brain CT and unable to foll ow up with MRI due to pacer wires initially. Patient will be followe d by neurosurgery after discharge from hospital and fully recovered from his surgery. P ast medical history is contributory for CAD, HTN, DM2, and severe aorti c stenosis. Patient was recommended physical and occupational therapy fo r debilitation and lack of coordination. With initial physical therapy asse ssment on 12/06 after post op, patient required maximal ass istance for attempted sit to standing tasks. Patient demonstrated instability in BLE with during stat ic standing and tends to lean toward his left side. Patien t required maximal assistance with bed mobility and minimal assistance for gait for ambulati ng 40 feet up to 100 feet using a Miko Steady. With initial occupational therapy assess ment on 12/06/21, patient required moderate assistance for hygiene and grooming and was independent with feeding. Patient was dependent with dressing and toileting. With physical therapy reassessment followi ng left side weakness, patient is dependent with bed mobility and is maximum assist X 2 for supine to sit to edge of bed. Patient requires two persons assist for lateral transfer s to neurochair from the bed. With occupational therapy re assessment, patient is dependent with ADLs. Patient presents with decreased strength, decrea sed activity tolerance, visual-spatial deficits with midline disorientation, an d decreased safety awareness which can limit the patient to perform his ADLs and functi onal mobility tasks independently. The following medical con sults have been following the patient: Cardiovascular surgeon, Neurology, Hospitalist A reas of ongoing medical management: Stroke - monitor for potential compl ications including subsequent CVA, brain edema, seizure, l imb contractures, falls, pain, DVT, depression, and aspiration. Paralysis - monitor and prevent limb deformities/contractures, alteration in skin integrity, constipation, depr ession, increased edema, increased muscle tone, and blood clots. HTN - mo nitor blood pressure and for potential complications. Impaired balanc e and strength - monitor for falls and use precautions to prevent i njury. Cardiac precautions - monitor cardiac status. DM-to monitor for complications leading to hyperglycemia and hypoglycemia. s/p CABG- to monitor for complications leading to de layed wound healing and infection. With treatment they have improved but are still functioning below baseline and are a good candidate for inpatient rehab. Clinical assessment indicates that medical needs cannot be met safely in a lower level of care. The patient requires an intensive therapy pr ogram and they are willing and able to tolerate and benefit from a minimum of 3 hours o f therapy per day of at least two disciplines: OT, PT and or ST in order to ga in strength and increased mobility. The patient requir es rehabilitation physician [id number] three times per week to assess interactions between the nissa ent's medical and functional goals and progress. The patient also requires an intensive and coordinated interdisciplinary approach to rehabilita tion with the expectation of returning to the community directly up on discharge from the Inpatient Rehab Facility. The patient also requires 24-hour rehabilita tion nursing to manage and educate the patient regarding medications, bowel, bladder pr ograms and carry over of the rehabilitation program with fall and wound preve ntion. PREADMIT VITALS: Date/Time 12/15/21 1300 12/14/21 1953 Temp F Temp C 35.9 35.6 Pulse 68 68 RR 16 21 BP 135/84 143/80 SPO2% 97 97 Ht ft 5 Ht in 11 Wt lbs 261.000 BMI 36.3 SUPPORTING DIAGNOSTICS/LABS/RADIOLOGY/CARDIOLOGY : Date: 12/15/21 12/14/21 12/13/21 WBC: 13.1 11.2 11.0 HGB: 10.2 9.1 9.4 HCT: 29.8 27.4 28.6 Ca: 9.0 8.4 8.8 Na: 125 125 134 K+: 4.3 4.9 3.9 Glu: 139 153 113 M.8 1.6 BUN: 25 25 Creat: 1.20 1.10 1.10 Tot protein: Alb: PTT: PT: INR: PLT: Additional labs: SARS COVID 12/04 -NEGATIVE Cultures: 12/04/21 1520 MRSA NEGATIVE MSSA -POSIT HARSHAD Imagin12/15/21 1300 CHEST XRAY-Improvi ng CHF. 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 2. 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 12/10/21 0610 CHEST XRAY-Increased right basilar opacities, most likely atelectasis with a small effusion. 12/09/[address]-Subtle white matter hypodensity of the superior right frontal gyrus, possible ischemia of indeterminate age. Correlate with MRI. 12/09/21 1 435 CHEST XRAY-Stable postoperative chest with improved mild congestio n along with mild bibasilar subsegmental atelectasis and small effusions. No pneumothorax. 12/09/21 0601 CHEST XRAY-Stable chest. 12/09/[address]- Stable suprasellar mass with peripheral calcifications otherwise no acute fin dings and no changes from one day prior. 12/09/[address]-N o hemodynamically significant stenoses of the cervical internal carotid or vertebral ar teries. 2. No hemodynamically significant stenoses of the anterior, middle, or posterior cerebral arteries. 3. No aneurysm, occlusion, or dissection. 12/08/21 0 500 CHEST XRAY- Mild cardiomegaly. Trace left pleural effusion. 0630 CHEST XRAY- Single AP view of the chest is provide d. Endotracheal tube has been removed. Other support lines and tubes are similar. Cardiomegaly with v ascular congestion persists. Trace effusions are unchange d. There is no pneumothorax. No additional interval change. 12/06/21-CHEST XRAY- 1700-Visualized support tubes and catheters project in satisfactory position. 2. Significant widenin g of the mediastinum is consistent with recent surgery. Clinical follow -up with serial chest x-ray recommended. 3. Mild bilateral central interstit ial infiltrates. 12/04/21 1540 CHEST XRAY-No acute cardiopulmonary process. Sta ble appearance of sellar/suprasellar mass with probable cavernous sinus involvement on the right. Other supporting diagnostics: NA RESPIRATORY STATUS: Respiratory treatments: Oxygen O2 liters per minute: 2 Respiratory status: PT AT 97% OXYGEN SAT 2L OF O XYGEN VIA NC NEUROLOGIC STATUS: Neurologic status: Alert, Oriented to person, Or iented to place, Oriented to time Patient's mood and behavior: Appropriate Hand dominance: Right BOWEL/BLADDER: Continent of bladder for developmental age: No Number of bladder accidents in last 48 hours: Catheter type: Insertion date: Bladder aids: Bladder comment: HAD MINA C ATH INSERT ON 12/06 AND REMOVED 12/13, PT USES BED ALLEN WHEN ABLE Continent of bowel for developmental age: Yes Number of bowel accidents in last 48 hours: Date of last BM: 12/15/21 Colostomy: Ileostomy: Bowel aids: Bowel comment: SKIN: Skin alteration: Present/Exists SKIN ALTERATION 1: Type: Surgical wound Location: Leg left Stage: Description: PROCEDURAL SITE LEFT LEG SKIN ALTERATION 2: Type: Surgical wound Location: Sternum Stage: Description: PROCEDURAL SITE MEDIAL STERUM SKIN ALTERATION 3: Type: Location: Stage: Description: SKIN ALTERATION 4: Type: Location: Stage: Description: EATING/NUTRITIONAL: Nutritional intake: PO regular food, PO thin liq uids Eating compensatory strategies: Medication administration: Medications whole, IV , NASAL, RECTAL, Subcutaneous REHAB NEEDS: Special rehabilitation needs: IV/PICC/CVC, O2, R espiratory therapy Special rehabilitation precautions: Cardiac, Binu rnal, Safety/fall Rehabilitation precaution detail: PT TO ADHERE TO STERNAL PRECAUTIONS AND FALL PRECAUTIONS DURING FUNCTIONAL MOBILITY TASKS. FUNCTIONAL ASSESSMENT: FUNC. TASK PRIOR LOF CURRENT LOF EXPECTED LOF Bathing Independent Total assistance Independen t U.B. Dressing Independent Substantial/max asst Independent L.B. Dressing Independent Total assistance Inde pendent Bed/Ch Transf. Independent Total assistance In dependent Toilet Transfer Independent Total assistance In dependent Stairs Independent Total assistance Independent Locomotion Independent Substantial/max asst Ind ependent Locomotion prior device use: None Description of prior level of locomotion: SHAD T WAS INDEPENDENT WITH AMBULATION WITHOUT ANY USE OF AD. Locomotion current device: RW/FW, MIKO STEADY FO R NOW Locomotion current distance traveled without a r est break: LATERAL STEPS TO NEUROCHAIR Description of current level of locomoti on: PATIENT REQUIRES TWO PERSON ASSIST FOR LATERAL TRANSFERS TO NEUROCHAIR FROM THE BED . Description of expected leve l of locomotion: PT EXPECTED TO INDEP/MOD I WITH RW AND OTHER APPROPRIATE AD. 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 ANTICIPATED DC PLAN/POST IRF: Primary support contact: THU MARRERO Relationship to patient: SPOUSE Phone number 1: [phone] Phone number 2: Caregiver availability: Evenings only, Days only Caregiver can provide: Supervision only, Physica l assistance Patient/caregiver goals/preferences: TO GET BETT ER Expected discharge destination: Home Expected discharge physical layout: Number of external stairs: Number of internal stairs: Railing details: Grab bars location: Barriers to discharge: Caregiver support, Endura nce, Medically complex Options discussed with patient: Yes Options discussed with caregiver: Not applicable Patient agrees with program requirements: Yes ACTIVITY TOLERANCE: Current treatment interventions: Occupational th erapy, Physical therapy Patient able to tolerate 3 hours of therapy a da y: Yes Patient able to tolerate 15 hours of therapy a w [place]: Altered therapy schedule comment: ACUTE INPATIENT REHAB PLAN: Estimated length of stay in days: 21 Anticipated services in acut e inpatient rehab: Rehab nursing 08/10, client services account manager, concrete worker, Occupational therapy, Physical th erapy, Speech therapy, Respiratory therapy, Neuropsychology, Therapeuti c recreation tx Acute hospital documents reviewed prior to admis mikki decision: Acute History/ Physical, Consult notes, Operative reports, Prog ress notes, Lab/diagnostics, Therapy notes, Vital signs, Other ancillary note s CRS ELECTRONIC SIGNATURE: CRS #1 electronic signature: VERNON ABIODUN CRS credentials: OTD Date: 12/15/21 Time: 1412 CRS #2 electronic signature: CRS credentials: Date: Time: CRS #3 electronic signature: CRS credentials: Date: Time: Provider Pre-Admit Summary Acute IP rehab admit: criteria met MD determination Based upon my evaluation and review of t he supporting assessment documentation and consultation with the pr eadmission patient assessment coordinator, I have determined, prior to admitting this patient, that there is r easonable expectation that at the time of admission to the IRF, the patient's medical management and rehabilitation needs require an inpatient stay and close physician involvement. Patient can be expected to actively participate in, and benefit from, and intensive rehab therapy prog tolu whose intensity is not provided in lower levels of care. Significant barriers that can only be addressed in an acute inpatient rehab program, including, but not limited to: Complex acute rehab needs: Custom therapy tx carlos n, New medical diagnosis, Postsurgery req mgt/care, Hospitalist consult, V TE Risk Electronically Signed by Mp Mendez MD on at 1601 RPT #:[id number] END OF REPORT 2021-12-15 12:49:00-00:00 [facility] ([facility] Cardiovascular Surgery Prog REPORT#:[id number] REPORT STATUS: Signed DATE:12/15/21 TIME: 1249 PATIENT: GARCÍA MARRERO UNIT #: [id number] ROOM/BED: [facility] : 55 AGE: 66 SEX: M ATTEND: Ady Aragon MD ADM AUTHOR: Irene Gonzalez * ALL edits or amendments must be made on the [employer]/computer document * General Post-op: day 9 Status post: ACB x 4 and AVR with #21mm Mirza valve Subjective Patient reports: Yes: complaints. Nursing reports: No: complaints. Comments: The patient is seen at bedside, states t hat he is able to have bowel movements today after taking laxatives yesterday. He was able to stand up at the edge off the bed today with PT. He continues to wiggle hi s left toes and gain more strength in his upper extremity. Review of Systems Constitutional: Reports: generalized weakness. Denies: chills, f atigue, fever. Respiratory: Denies: SOB. Cardiovascular: Denies: chest pain. GI: Reports: other (good BM). Denies: nausea, vomiti ng. Objective General VS/I O: Last Documented: Result Date Time Pulse Ox 100 12/15 1158 O2 Delivery Room air 12/15 1158 Temp 35.9 12/15 1158 Pulse 60 12/15 1158 Resp 18 12/15 1158 B/P 118/69 12/15 1105 B/P Mean 89 12/15 1105 FiO2 21 12/15 0835 O2 Flow Rate 2 12/14 0800 24 hour I O ending at 0700: 12/15 0700 12/14 1900 Intake Total 500 200 Output Total 3070 1850 Balance -2570 -1650 Intake, Oral 500 200 Number 2 Bowel Movements Output, Urine 3070 1850 PATIENT WEIGHT: Weight (lb): 261 Weight (oz): 8.76 Weight (kg): 118.388 Medications: Active Meds + DC'd Last 24 Hrs Warfarin Sodium (COUMADIN) 6 MG QPM PO Desmopressin Acetate (DDAVP NASAL SPRAY) 1 SPRAY DAILY NASAL (DC) Bisacodyl (BISACODYL SUPP) 10 MG ONCE ONE RECTAL (DC) Polyethylene Glycol (MIRALAX) 17 GM DAILY PO Carvedilol (COREG) 6.25 MG Q12HR PO Warfarin Sodium (COUMADIN) 5 MG QPM PO (DC) Hydralazine HCl (APRESOLINE) 10 MG Q6H PRN PRN I V Lisinopril (PRINIVIL) 40 MG BID PO (CKD) Hydralazine HCl (APRESOLINE) 25 MG Q8HR PO Amlodipine Besylate (NORVASC TAB) 5 MG BID PO Benzocaine/Menthol (Cepacol Sore Throat Lozenge) 1 TAB Q2H PRN PRN MM ( CKD) Docusate Sodium (COLACE) 100 MG BID PO Insulin Glargine (Lantus/Semglee) 40 UNITS BEDTI ME SUBQ Insulin Human Lispro (HumaLOG) MEDIUM DOSE SLIDI NG SCALE AC HS SUBQ Nicardipine HCl (CARDENE I.V.) 50 MG ASDIR IV (C KD) Sodium Chloride (SODIUM CHLORIDE 0.9%) 230 ML Aspirin (ASPIRIN EC) 81 MG BEDTIME PO Clopidogrel Bisulfate (PLAVIX) 75 MG DAILY PO Famotidine (PEPCID) 20 MG BID PO [place]-2-Vded Ethyl Esters (LOVAZA) 1 GM DAILY PO (CKD) Atorvastatin Calcium (LIPITOR) 80 MG BEDTIME PO Fenofibrate (TRICOR) 108 MG BEDTIME PO Levothyroxine Sodium (Synthroid) 125 MCG DAILY@0 630 PO Meperidine HCl (DEMEROL (C-II)) 25 MG Q4H PRN CO N IM Meperidine HCl (DEMEROL (C-II)) 50 MG Q4H PRN CO N IM Calcium Gluconate/Sodium Chloride (Calcium Gluco scott 1 GM/NS 100 mL) 100 ML ASDIR PRN IV Dobutamine HCl/Dextrose (DOBUTamine HCL IN DEXTR OSE) 250 ML ASDIR PRN IV Epinephrine (EPINEPHrine/NS 4MG/250ML) 250 ML DIR PRN IV Hydrocodone Bitart/Acetaminophen (NORCO 5/325 TA BLET (C-II)) 1 TAB Q4H PRN PRN PO Hydrocodone Bitart/Acetaminophen (NORCO 5/325 TA BLET (C-II)) 2 TAB Q4H PRN PRN PO Lidocaine HCl/Dextrose (Lidocaine 0.4% in D5w So ln) 500 ML ASDIR PRN IV (CKD) Magnesium Sulfate (MAG SULFATE 2GM PREMIX) 50 ML ASDIR PRN IV Magnesium Sulfate/Dextrose (Magnesium Sulfate) 1 00 ML ASDIR PRN IV Nicardipine HCl (CARDENE I.V.) 25 MG ASDIR PRN I V (CKD) Sodium Chloride (SODIUM CHLORIDE 0.9%) 250 ML Ondansetron HCl (ZOFRAN) 4 MG Q8H PRN PRN IV Potassium Chloride (Potassium Chloride) 50 ML DIR PRN IV Dextrose/Water (DEXTROSE 50% IN WATER) 12.5 GM A SDIR PRN IV Dextrose/Water (DEXTROSE 50% IN WATER) 25 GM ASD IR PRN IV Nicardipine HCl (CARDENE I.V.) 25 MG ASDIR PRN I V (CKD) Sodium Chloride (SODIUM CHLORIDE 0.9%) 250 ML Sodium Bicarbonate (Sodium Bicarbonate) 50 MEQ A SDIR PRN IV Acetaminophen (TYLENOL) 650 MG Q4H PRN PRN PO Magnesium Hydroxide (MILK OF MAGNESIA) 30 ML ASD IR PRN PO Zolpidem Tartrate (AMBIEN (C-IV)) 5 MG BEDTIME P RN PRN PO Dietitian nutrition assessment The data set between the solid lines has been im ported from the dietitian's assessment. BMI Calculated: 35.4 Nutrition related diagnosis: Nutrition diagnosis details: Nutrition problem: INCREASED ENERGY NEEDS Nutrition etiology: THE ROLE PROTEIN AND , ENERG Y IN RECOVERY Nutrition signs and symptoms: S/P CABG Nutrition prescription: - CONTINUE 5 CCD DIABETI C DIET. - CONTINUE TO MEET AT LEAST 75% OF ESTIMATED ENERGY AND PROTEIN DAILY NEEDS. Dietitian name: Kylie [place], DIET Assessment completed: 12/13/21 Nutrition provider diagnosis: no nutrition diagn osis Review of dietitian's assessment: unavailable at this time Physical Exam General appearance: alert, awake, oriented, no a cute distress Wound/incision: Location: median sternotomy, right lower extrem ity Site condition: dressing clean dry, incision in tact, no ecchymosis, no erythema, Sternum is stable Neck: non-tender, no bruit/NL carotids Cardiovascular: BP/pulses equal bilat., normal h eart sounds, regular rate rhythm, no ectopy Respiratory: aerating well Abdomen: soft, non-tender, normal bowel sounds Extremities: no edema, LUE w eakness, however he is able to move his left hand up to his face today He is able to move the toes on his left foot and was able to stand to the edge of the bed with assistance Neuro/CUTTER WOODWIND REEDS: alert, oriented X 3 Results Findings/Data: Laboratory Tests 12/15 12/15 12/15 12/14 12/14 1156 0724 0445 2109 1618 Chemistry Sodium (137 - 145 MMOL/L) 125 L Potassium (3.5 - 5.1 MMOL/L) 4.3 Chloride (98 - 107 MMOL/L) 93 L Carbon Dioxide (22 - 30 MMOL/L) 24 BUN (9 - 20 MG/DL) 22 H Creatinine (0.66 - 1.25 MG/DL) 1.20 Glomerular Filtr Rate > 60 Glucose (74 - 106 MG/DL) 139 H POC Glucose (60 - 99 MG/DL) 140 H 136 H 174 H 1 46 H Calcium (8.4 - 10.2 MG/DL) 9.0 12/14 1540 Chemistry Sodium (137 - 145 MMOL/L) 125 L Potassium (3.5 - 5.1 MMOL/L) 4.9 Chloride (98 - 107 MMOL/L) 94 L Carbon Dioxide (22 - 30 MMOL/L) 25 Anion Gap (14 - 24 MMOL/L) 11 L BUN (9 - 20 MG/DL) 25 H Creatinine (0.66 - 1.25 MG/DL) 1.10 Glomerular Filtr Rate > 60 Glucose (74 - 106 MG/DL) 153 H Calcium (8.4 - 10.2 MG/DL) 8.4 Laboratory Tests 12/15 0704 Coagulation INR (0.86 - 1.14) 1.1 PT Patient/Control Mix (9.4 - 12.7 SECONDS) 11. 9 Laboratory Tests 12/15 0445 Hematology WBC (3.8 - 9.8 K/MM3) 13.1 H RBC (3.95 - 5.67 M/MM3) 3.45 L Hgb (12.4 - 16.7 G/DL) 10.2 L Hct (35.9 - 49.5 %) 29.8 L MCV (81.7 - 96.1 fL) 86 MCH (27.6 - 33.2 pg) 29.6 MCHC (32.9 - 35.5 %) 34.2 RDW (12.1 - 15.2 %) 12.4 Plt Count (129 - 368 K/MM3) 314 MPV (7.4 - 10.4 fl) 9.7 Neut % (Auto) (43 - 75 %) 72.1 Lymph % (Auto) (14 - 44 %) 16.5 [place] % (Auto) (4 - 13 %) 8.2 Eos % (Auto) (0 - 6 %) 1.5 Baso % (Auto) (0 - 2 %) 0.2 Neut # (Auto) (2.0 - 7.6 K/mm3) 9.45 H Lymph # (Auto) (1.0 - 3.8 K/mm3) 2.16 [place] # (Auto) (0.1 - 0.8 K/mm3) 1.08 H Eos # (Auto) (0.0 - 0.2 K/mm3) 0.20 Baso # (Auto) (0.0 - 0.2 K/mm3) 0.03 Immature Gran % (0.0 - 2.0 %) 1.5 Nucleated RBC % (0 - 1.0 %) 0.0 Nucleated RBCs # (Man) (0.0 - 0.1 K/mm3) 0.00 Diagnosis, Assessment Plan Free Text A P: Pt. with CAD and aortic stenosis S/P ACB x 4 and AVR with #21mm Mirza tissue va lve Hypertension on Cardene gtt Diabetes Hyperlipidemia Pituitary micoadenoma Polydipsia PT/INR subtherapeutic Hyponatremia PLAN: Continue oral anti hypertensives PT/OT Encourage use of IS Wean off Cardene gtt Increase warfarin to 6mg Daily PT/INR Inpatient rehab evaluation pending insurance art roval at 1258 at 1015 [facility] #:[phone] END OF REPORT 2021-12-15 06:20:00-00:00 [facility] ([facility]) Cardiology Progress Note REPORT#:[id number] REPORT STATUS: Signed DATE:12/15/21 TIME: 619 PATIENT: GARCÍA MARRERO UNIT #: [id number] ROOM/BED: [address] : [birth year] AGE: 66 SEX: M ATTEND: Ady Aragon MD ADM AUTHOR: Aidee Armstrong MD * ALL edits or amendments must be made on the [employer]/computer document * Subjective Chief complaint: L side weakness S/P OR HPI: 66year old male with h/o CAD, , now s/p ACB, A VR. No c/o chest pain, palpitations, dyspnea. Patient reports: No: chest pain, palpitations, shortness of breat h. Objective General VS/I O: 24 hour I O ending at 0700: 12/15 0700 12/14 1900 Intake Total 500 200 Output Total 1969 1849 Balance -1470 -1650 Intake, Oral 500 200 Number 1 Bowel Movements Output, Urine 1969 1849 Vital Signs: Date Time Temp Pulse Resp B/P B/P Pulse O2 O2 F low FiO2 Mean Ox Delivery Rate 12/15 0545 72 12/15 0450 70 18 132/68 93 99 12/15 0412 70 142/82 102 80 12/15 0400 97.6 12/15 0344 75 12/15 0342 71 14 141/75 97 12/15 0312 67 113/67 86 12/15 0242 72 16 121/78 94 12/15 0212 71 118/69 88 12/15 0142 72 20 127/73 92 97 12/15 0112 72 106 93 12/15 0042 70 154/81 108 95 12/15 0012 71 146/79 103 94 12/15 0000 96.7 12/14 2342 68 143/80 105 97 12/14 2312 73 156/90 115 97 12/14 2242 72 154/74 103 98 12/142 71 110/92 98 98 12/146 71 12/14 2141 66 115/75 90 98 12/142 72 141/84 106 97 12/14 2041 71 145/75 102 97 12/15 2011 70 139/86 106 97 12/14 1953 96.0 12/14 194 69 135/70 97 12/14 1917 71 142/80 102 12/14 191 72 155/101 122 12/14 1845 70 144/81 108 96 12/14 1832 67 148/77 102 99 12/14 1800 67 70 12/14 1745 63 99 12/14 1700 67 99 12/14 1630 69 12/14 1530 66 21 98 12/14 1500 65 24 98 12/14 1430 66 25 99 12/14 1400 65 22 99 12/14 1330 65 20 99 12/14 1230 65 20 98 12/14 1200 60 15 96 12/14 1145 59 17 97 12/14 1130 65 19 98 12/14 1100 58 14 98 12/14 1045 58 17 97 12/14 1030 61 17 99 12/14 1015 63 19 98 12/14 1000 64 24 98 12/14 0945 63 24 99 12/14 0930 63 20 99 12/14 0915 65 14 100 12/14 0900 72 30 95 12/14 0845 68 14 98 12/14 0830 61 16 98 12/14 0815 58 15 96 12/14 0802 95 Room air 21 12/14 0800 96.6 12/14 0800 Nasal 2 cannula 12/14 0800 57 15 97 12/14 0745 58 16 96 12/14 0730 64 16 98 12/14 0715 66 22 97 12/14 0700 65 15 98 PATIENT WEIGHT: Weight (lb): 261 Weight (oz): 8.76 Weight (kg): 118.388 Medications: Active Meds + DC'd Last 24 Hrs Desmopressin Acetate (DDAVP NASAL SPRAY) 1 SPRAY DAILY NASAL (CKD) Bisacodyl (BISACODYL SUPP) 10 MG ONCE ONE RECTAL (DC) Polyethylene Glycol (MIRALAX) 17 GM DAILY PO Carvedilol (COREG) 6.25 MG Q12HR PO Warfarin Sodium (COUMADIN) 5 MG QPM PO Desmopressin Acetate (DDAVP NASAL SPRAY) 1 SPRAY BID NASAL (DC) Hydralazine HCl (APRESOLINE) 10 MG Q6H PRN PRN I V Lisinopril (PRINIVIL) 40 MG BID PO (CKD) Hydralazine HCl (APRESOLINE) 25 MG Q8HR PO Amlodipine Besylate (NORVASC TAB) 5 MG BID PO Benzocaine/Menthol (Cepacol Sore Throat Lozenge) 1 TAB Q2H PRN PRN MM ( CKD) Docusate Sodium (COLACE) 100 MG BID PO Insulin Glargine (Lantus/Semglee) 40 UNITS BEDTI ME SUBQ Insulin Human Lispro (HumaLOG) MEDIUM DOSE SLIDI NG SCALE AC HS SUBQ Nicardipine HCl (CARDENE I.V.) 50 MG ASDIR IV (C KD) Sodium Chloride (SODIUM CHLORIDE 0.9%) 230 ML Aspirin (ASPIRIN EC) 81 MG BEDTIME PO Clopidogrel Bisulfate (PLAVIX) 75 MG DAILY PO Famotidine (PEPCID) 20 MG BID PO Fgqdg-3-Rywf Ethyl Esters (LOVAZA) 1 GM DAILY PO (CKD) Atorvastatin Calcium (LIPITOR) 80 MG BEDTIME PO Fenofibrate (TRICOR) 108 MG BEDTIME PO Levothyroxine Sodium (Synthroid) 125 MCG DAILY@ 0630 PO Meperidine HCl (DEMEROL (C-II)) 25 MG Q4H PRN CO N IM Meperidine HCl (DEMEROL (C-II)) 50 MG Q4H PRN CO N IM Calcium Gluconate/Sodium Chloride (Calcium Gluco scott 1 GM/NS 100 mL) 100 ML ASDIR PRN IV Dobutamine HCl/Dextrose (DOBUTamine HCL IN DEXTR OSE) 250 ML ASDIR PRN IV Epinephrine (EPINEPHrine/NS 4MG/250ML) 250 ML DIR PRN IV Hydrocodone Bitart/Acetaminophen (NORCO 5/325 TA BLET (C-II)) 1 TAB Q4H PRN PRN PO Hydrocodone Bitart/Acetaminophen (NORCO 5/325 TA BLET (C-II)) 2 TAB Q4H PRN PRN PO Lidocaine HCl/Dextrose (Lidocaine 0.4% in D5w So ln) 500 ML ASDIR PRN IV (CKD) Magnesium Sulfate (MAG SULFATE 2GM PREMIX) 50 ML ASDIR PRN IV Magnesium Sulfate/Dextrose (Magnesium Sulfate) 1 00 ML ASDIR PRN IV Nicardipine HCl (CARDENE I.V.) 25 MG ASDIR PRN I V (CKD) Sodium Chloride (SODIUM CHLORIDE 0.9%) 250 ML Ondansetron HCl (ZOFRAN) 4 MG Q8H PRN PRN IV Potassium Chloride (Potassium Chloride) 50 ML DIR PRN IV Dextrose/Water (DEXTROSE 50% IN WATER) 12.5 GM A SDIR PRN IV Dextrose/Water (DEXTROSE 50% IN WATER) 25 GM ASD IR PRN IV Nicardipine HCl (CARDENE I.V.) 25 MG ASDIR PRN I V (CKD) Sodium Chloride (SODIUM CHLORIDE 0.9%) 250 ML Sodium Bicarbonate (Sodium Bicarbonate) 50 MEQ A SDIR PRN IV Acetaminophen (TYLENOL) 650 MG Q4H PRN PRN PO Magnesium Hydroxide (MILK OF MAGNESIA) 30 ML ASD IR PRN PO Zolpidem Tartrate (AMBIEN (C-IV)) 5 MG BEDTIME P RN PRN PO Status post: s/p ACB X 4 Aortic Stenosis - severe s/p AVR with #21 bio Mirza. Physical Exam General appearance: alert, awake, oriented Head/Eyes: atraumatic, normocephalic, PERRLA ENT: moist mucosal membranes Neck: no bruit/NL carotids, no JVD, no masses or swelling Cardiovascular: CV assessment: regular rate and rhythm, BP puls es = bilaterally Murmur assessment: AVR, I/ JOSEMANUEL Respiratory: on oxygen, clear to auscultation, n o distress Abdomen: soft, non-tender, no mass/organomegaly, no pulsatile mass Upper extremity: UE assessment: no edema, 2+ peripheral pulses Lower extremity: LE assessment: no edema, 2+ peripheral pulses Musculoskeletal: Left weakness Neuro/CUTTER WOODWIND REEDS: left hemiparesis, alert, oriented X 3 Skin: dry, intact Psychiatry: normal affect, normal judgment/insig ht, normal mood, no hallucinations Results Findings/Data: Laboratory Tests 12/15 12/14 12/14 12/14 12/14 0445 2109 1618 1540 1048 Chemistry Sodium (137 - 145 MMOL/L) 125 L 125 L Potassium (3.5 - 5.1 MMOL/L) 4.3 4.9 Chloride (98 - 107 MMOL/L) 93 L 94 L Carbon Dioxide (22 - 30 MMOL/L) 24 25 Anion Gap (14 - 24 MMOL/L) 11 L BUN (9 - 20 MG/DL) 22 H 25 H Creatinine (0.66 - 1.25 MG/DL) 1.20 1.10 Glomerular Filtr Rate > 60 > 60 Glucose (74 - 106 MG/DL) 139 H 153 H POC Glucose (60 - 99 MG/DL) 174 H 146 H 199 H Calcium (8.4 - 10.2 MG/DL) 9.0 8.4 12/14 0654 Chemistry POC Glucose (60 - 99 MG/DL) 108 H Diagnosis, Assessment Plan Hospital course to date: IMP: -CAD s/p ACB X 4 -Aortic Stenosis - severe s/p AVR with #21 bio Mirza. -DM -HTN -HLP -Mild mR -TAA -L hemiparesis post-op, brain tumor noted -hyponatremia PLAN: Continue current medical rx. Neuro following PT/OT Pacemaker off Fluid restrict at 0811 RPT #:[id number] END OF REPORT 2021-12-15 00:07:00-00:00 [id number] [place] [address] PATIENT NAME: GARCÍA MARRERO ADMIT DATE: 11/17 04/08 ACCOUNT NO: [id number] ROOM NO: Z.SI02 AGE: 66 REPORT TYPE: PROGRESS NOTE SEX: M ADMITTING PHYSICIAN:Wil Aragon MD ATTENDING PHYSICIAN:Wil Aragon MD DATE: 12/13/2021 CARDIAC SURGERY SERVICE SUBJECTIVE: The patient is seen at the bedside i n the ICU. The patient currently is stable. The patient has a l ittle bit of movement now in his hand, in arm, and also in toes on the left davis e. Case discussed in detail as well as treatment plan with the patient's family at the bedside. Dictated By: Wil Aragon MD Date Dictated: 12/15/2021 00:07:37 Date Transcribed: 12/15/2021 00:51:46 RLM/ANAM/DUNG Receipt ID: [id number] Authenticated by Wil Aragon MD On 08:25:35 AM at 0825 PATIENT NAME: GARCÍA MARRERO [id number] 2021-12-14 22:35:00-00:00 [id number] [address] PATIENT NAME: GARCÍA MARRERO ADMIT DATE: 11/17 04/08 ACCOUNT NO: [id number] ROOM NO: Z.SI02 AGE: 66 REPORT TYPE: PROGRESS NOTE SEX: M ADMITTING PHYSICIAN:Wil Aragon MD ATTENDING PHYSICIAN:Wil Aragon MD DATE: 12/13/2021 SUBJECTIVE: The patient was seen and examined, r esting comfortably. No issues of nausea, vomiting, fevers, chills, shortness o f breath, or headache. REVIEW OF SYSTEMS: Otherwise, negative on a 10-p oint scale. MEDICATIONS: MAR reviewed. LABORATORY DATA: Labs reviewed. Sodium is stable . Potassium is stable. Creatinine is stable. OBJECTIVE: VITAL SIGNS: Reviewed. Vital signs are stable, a febrile, systolic blood pressure in the 120s. HEENT: Head and face normal. NECK: No masses. CHEST: Symmetric chest wall. ABDOMEN: He has a central abdominal obesity. EXTREMITIES: No edema. NEUROLOGIC: Awake, alert. ASSESSMENT: 1. Polydipsia. 2. Polyuria. 3. $$$. 4. $$$. 5. Left-sided weakness and cerebrovascular accid ent. 6. Pituitary microadenoma. PLAN: Continue supportive care. Monitor effects of DDAVP. The patient was counseled on the importance of fluid restriction . Dictated By: Jhon Villegas MD Date Dictated: 12/14/2021 22:35:28 Date Transcribed: 12/14/2021 23:21:51 MARTIN/TIMOTEO/DUNG PATIENT NAME: GARCÍA MARRERO [id number] Receipt ID: [id number] Authenticated and Edited by Jhon Villegas MD On 12/19/21 12:20:34 AM Electronically Signed by Jhon Villegas MD on 07/07 at 1223 PATIENT NAME: GARCÍA MARRERO [id number] 2021-12-14 22:09:00-00:00 [id number] [facility] [address] [place] [address] PATIENT NAME: GARCÍA MARRERO ADMIT DATE: 11/17 04/08 ACCOUNT NO: [id number] ROOM NO: [facility] AGE: 66 REPORT TYPE: PROGRESS NOTE SEX: M ADMITTING PHYSICIAN:Wil Aragon MD ATTENDING PHYSICIAN:Wil Aragon MD DATE: 12/12/2021 SUBJECTIVE: The patient was seen and examined, r esting comfortably. No issues of nausea, vomiting, fevers, chills, quiana rtness of breath, or headache. He says his thirst was slightly decreased and improved, but he still felt thirsty in general compared to baseline. REVIEW OF SYSTEMS: Otherwise negative on a 12-po int scale. LABORATORY DATA: Sodium was in the normal range approximately 135. MEDICATIONS: MAR was reviewed. The patient is on DDAVP 1 spray each nostril twice a day, otherwise see EHR. No IV fluids. OBJECTIVE: VITAL SIGNS: Reviewed. Vital signs are stable, a febrile, systolic blood pressure 110s to 120s. HEENT: Head and face normal. NECK: No masses. CHEST: Symmetric chest wall. ABDOMEN: Nondistended. EXTREMITIES: No edema. NEUROLOGIC: Intact. CARDIOVASCULAR: Adequate cardiovascular perfusio n noted. NEUROLOGIC: Left-sided weakness. Not assessed. IMPRESSION: 1. Polydipsia, polyuria. 2. 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 3. Cerebrovascular accident with left-sided weak ness. 4. History of coronary artery bypass graft. 5. Stoic. PLAN: 1. At this time, the DDAVP did show improvement in the amount of urine output he is making. We counseled the patient as he has been used to be drinking frequently, he will need to cautiously change his behavior patterns. He says he does feel less thirst, but h e does have the desire to want to continue bringing drinks $$$_. 2. Counseled the patient on behavioral changes. 3. Inform the team albeit we are starting DDAVP as an inpatient the patient will need an endocrinological evaluation and/or neurosurgical evaluation. I PATIENT NAME: GARCÍA MARRERO [id number] have counseled the as well. I am just yaritza wooten as the interim as no forestry aid is coming to this hospital. Dictated By: Jhon Villegas MD Date Dictated: 12/14/2021 22:09:12 Date Transcribed: 12/14/2021 22:54:24 MARTIN/TIMOTEO/JG Receipt ID: [id number] Authenticated and Edited by Jhon Villegas MD On 12/19/21 12:20:20 AM Electronically Signed by Jhon Villegas MD on 07/07 at 1221 PATIENT NAME: GARCÍA MARRERO [id number] 2021-12-14 21:49:00-00:00 [id number] [place] [address] PATIENT NAME: GARCÍA MARRERO ADMIT DATE: ACCOUNT NO: [id number] ROOM NO: Z.SI02 AGE: 66 REPORT TYPE: PROGRESS NOTE SEX: M ADMITTING PHYSICIAN:Wil Aragon MD ATTENDING PHYSICIAN:Wil Aragon MD DATE: 12/14/2021 SUBJECTIVE: The patient was seen and examined th is morning, resting comfortably, no significant changes. He was admitted to several months of drinking fl uids. The patient was seen at around 9:00 this morning . The patient had already drunk 800 mL from 7:00 a .m. to 9:00 a.m. The patient was $$$ he did drink that much. Serum sodium 128, potassium 3.9, BUN 24, creatinine 1.16. Hemoglobin 9.1, white count 11.2. MAR was reviewed $$$ 2:00 a.m. PHYSICAL EXAMINATION: VITAL SIGNS: Temperature 97.8, pulse 58, blood p ressure is 102/70. HEAD AND FACE: Normal. NECK: No masses. CHEST: Symmetric chest wall. ABDOMEN: Nondistended. EXTREMITIES: No edema. There was a report of gael e left-sided movement. CARDIOVASCULAR: Adequate cardiovascular perfusio n noted. NEUROLOGIC: Affect somewhat flat. IMPRESSION: 1. 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 2. Cerebrovascular accident with left-sided weak ness. 3. Status post coronary artery bypass graft. 4. Polydipsia, polyuria. PLAN: 1. At this time, polyuria is improving with the DDAVP was started. 2. Polydipsia has improved s ome, but the patient is still drinking considerable amount of water. He states he has trained himsel f habitually to drink water, but he has cut down some. 2. I have discussed with the nurses, reviewed the issues and counseled, plan on further limit water intake to no more than 2 lit ers per day. PATIENT NAME: GARCÍA MARRERO [id number] 3. We will decrease the DDAVP to one dose q.a.m. as he already received this morning dose to help hopefully address correctio n of serum sodium. Dictated By: Jhon Villegas MD Date Dictated: 12/14/2021 21:49:02 Date Transcribed: 12/14/2021 22:34:13 MARTIN/EDSON/JG Receipt ID: [id number] Authenticated and Edited by Jhon Villegas MD On 12/19/21 12:20:05 AM Electronically Signed by Jhon Villegas MD on 07/07 at 1221 PATIENT NAME: GARCÍA MARRERO [id number] 2021-12-14 18:49:00-00:00 [facility] ([facility] Hospitalist Progress Note REPORT#:[id number] REPORT STATUS: Signed DATE:12/14/21 TIME: 1848 PATIENT: GARCÍA MARRERO UNIT #: [id number] ROOM/BED: [address] : [birth year] AGE: 66 SEX: M ATTEND: Ady Aragon MD ADM AUTHOR: Billy Maxwell MD * ALL edits or amendments must be made on the el [employer]/computer document * Subjective Chief complaint: s/p ACB and AVR HPI: POD#5 ACB and AVR No acute events overnight. C ontinues to have left sided weakness, weak hospice consultant LUE and unable to move LLE, noticable left sided fac ial droop. Pt remains intermittently paced. Free Text Subj Notes Free Text Subj Notes: FEELING STRONGER ON LEFT HAND. LLE STILL WEAK Review of Systems All systems rev neg: except as marked Objective General VS/I O: Vital Signs: Date Time Temp Pulse Resp B/P B/P Pulse O2 O2 F low FiO2 Mean Ox Delivery Rate 12/14 1832 67 148/77 102 99 12/14 1800 67 70 12/14 1745 63 99 12/14 1700 67 99 12/14 1630 69 12/14 1530 66 21 98 12/14 1500 65 24 98 12/14 1430 66 25 99 12/14 1400 65 22 99 12/14 1330 65 20 99 12/14 1230 65 20 98 12/14 1200 60 15 96 12/14 1145 59 17 97 12/14 1130 65 19 98 12/14 1100 58 14 98 12/14 1045 58 17 97 12/14 1030 61 17 99 12/14 1015 63 19 98 12/14 1000 64 24 98 12/14 0945 63 24 99 12/14 0930 63 20 99 12/14 0915 65 14 100 12/14 0900 72 30 95 12/14 0845 68 14 98 12/14 0830 61 16 98 12/14 0815 58 15 96 12/14 0802 95 Room air 21 12/14 0800 35.9 12/14 0800 Nasal 2 cannula 12/14 0800 57 15 97 12/14 0745 58 16 96 12/14 0730 64 16 98 12/14 0715 66 22 97 12/14 0700 65 15 98 12/14 0400 36.6 12/14 0115 58 15 98 12/14 0100 58 16 97 12/14 0045 62 13 97 12/14 0030 60 10 97 12/14 0015 64 15 99 12/14 0000 36.2 12/14 0000 66 20 100 12/13 2345 68 17 99 12/13 2330 63 18 99 12/13 2315 64 18 99 12/13 2300 66 18 98 12/13 2245 66 14 97 12/13 2230 68 17 97 12/13 2215 68 15 97 12/13 2200 67 20 100 12/13 2145 68 16 98 12/13 2130 61 17 100 12/13 2115 61 13 99 09/28 2100 62 20 98 12/13 2044 61 20 100 12/13 2029 71 23 99 12/13 2014 60 13 99 12/14 1999 67 19 100 12/135 69 19 99 12/130 63 13 100 12/13 1916 95 Nasal 2 28 cannula 12/13 1914 62 12 89 12/14 1911 36.1 12/14 1911 Nasal 2 cannula 12/130 77 25 93 24 hour I O ending at 0700: 12/14 0700 12/13 1900 Intake Total 900.00 1615.00 Output Total 990 1300 Balance -90 315.00 Intake, IV 330.00 315.00 Intake, Oral 570 1300 Output, Urine 990 1300 PATIENT WEIGHT: Weight (lb): 261 Weight (oz): 8.76 Weight (kg): 118.388 Medications: Active Meds + DC'd Last 24 Hrs Desmopressin Acetate (DDAVP NASAL SPRAY) 1 SPRAY DAILY NASAL (CKD) Bisacodyl (BISACODYL SUPP) 10 MG ONCE ONE RECTAL (DC) Polyethylene Glycol (MIRALAX) 17 GM DAILY PO Carvedilol (COREG) 6.25 MG Q12HR PO Warfarin Sodium (COUMADIN) 5 MG QPM PO Desmopressin Acetate (DDAVP NASAL SPRAY) 1 SPRAY BID NASAL (DC) Hydralazine HCl (APRESOLINE) 10 MG Q6H PRN PRN I V Lisinopril (PRINIVIL) 40 MG BID PO (CKD) Hydralazine HCl (APRESOLINE) 25 MG Q8HR PO Amlodipine Besylate (NORVASC TAB) 5 MG BID PO Benzocaine/Menthol (Cepacol Sore Throat Lozenge) 1 TAB Q2H PRN PRN MM ( CKD) Docusate Sodium (COLACE) 100 MG BID PO Insulin Glargine (Lantus/Semglee) 40 UNITS BEDTI ME SUBQ Insulin Human Lispro (HumaLOG) MEDIUM DOSE SLIDI NG SCALE AC HS SUBQ Nicardipine HCl (CARDENE I.V.) 50 MG ASDIR IV (C KD) Sodium Chloride (SODIUM CHLORIDE 0.9%) 230 ML Aspirin (ASPIRIN EC) 81 MG BEDTIME PO Clopidogrel Bisulfate (PLAVIX) 75 MG DAILY PO Famotidine (PEPCID) 20 MG BID PO Cahvf-0-Xelr Ethyl Esters (LOVAZA) 1 GM DAILY PO (CKD) Atorvastatin Calcium (LIPITOR) 80 MG BEDTIME PO Fenofibrate (TRICOR) 108 MG BEDTIME PO Levothyroxine Sodium (Synthroid) 125 MCG DAILY@0 630 PO Meperidine HCl (DEMEROL (C-II)) 25 MG Q4H PRN CO N IM Meperidine HCl (DEMEROL (C-II)) 50 MG Q4H PRN CO N IM Calcium Gluconate/Sodium Chloride (Calcium Gluco scott 1 GM/NS 100 mL) 100 ML ASDIR PRN IV Dobutamine HCl/Dextrose (DOBUTamine HCL IN DEXTR OSE) 250 ML ASDIR PRN IV Epinephrine (EPINEPHrine/NS 4MG/250ML) 250 ML DIR PRN IV Hydrocodone Bitart/Acetaminophen (NORCO 5/325 TA BLET (C-II)) 1 TAB Q4H PRN PRN PO Hydrocodone Bitart/Acetaminophen (NORCO 5/325 TA BLET (C-II)) 2 TAB Q4H PRN PRN PO Lidocaine HCl/Dextrose (Lidocaine 0.4% in D5w So ln) 500 ML ASDIR PRN IV (CKD) Magnesium Sulfate (MAG SULFATE 2GM PREMIX) 50 ML ASDIR PRN IV Magnesium Sulfate/Dextrose (Magnesium Sulfate) 1 00 ML ASDIR PRN IV Nicardipine HCl (CARDENE I.V.) 25 MG ASDIR PRN I V (CKD) Sodium Chloride (SODIUM CHLORIDE 0.9%) 250 ML Ondansetron HCl (ZOFRAN) 4 MG Q8H PRN PRN IV Potassium Chloride (Potassium Chloride) 50 ML DIR PRN IV Dextrose/Water (DEXTROSE 50% IN WATER) 12.5 GM A SDIR PRN IV Dextrose/Water (DEXTROSE 50% IN WATER) 25 GM ASD IR PRN IV Nicardipine HCl (CARDENE I.V.) 25 MG ASDIR PRN I V (CKD) Sodium Chloride (SODIUM CHLORIDE 0.9%) 250 ML Sodium Bicarbonate (Sodium Bicarbonate) 50 MEQ A SDIR PRN IV Acetaminophen (TYLENOL) 650 MG Q4H PRN PRN PO Magnesium Hydroxide (MILK OF MAGNESIA) 30 ML ASD IR PRN PO Zolpidem Tartrate (AMBIEN (C-IV)) 5 MG BEDTIME P RN PRN PO Dietitian nutrition assessment The data set between the solid lines has been im ported from the dietitian's assessment. BMI Calculated: 35.4 Nutrition related diagnosis: Nutrition diagnosis details: Nutrition problem: INCREASED ENERGY NEEDS Nutrition etiology: THE ROLE PROTEIN AND , ENERG Y IN RECOVERY Nutrition signs and symptoms: S/P CABG Nutrition prescription: - CONTINUE 5 CCD DIABETI C DIET. - CONTINUE TO MEET AT LEAST 75% OF ESTIMATED ENERGY AND PROTEIN DAILY NEEDS. Dietitian name: Kylie [place], DIET Assessment completed: 12/13/21 Physical Exam Head/Eyes: atraumatic, normal eyelids/periorb. ENT: moist mucosal membranes, normal dentition, Maynard gas catheter Cardiovascular: normal heart sounds, reg ular rate rhythm, no murmur, AV pacing Respiratory: aerating well, symmetric expansion Abdomen: non-tender, soft Genitourinary: urinary catheter Extremities: moves all, no clubbing, no cyanosis Neuro/CUTTER WOODWIND REEDS: left hemiparesis, alert, oriented X 3 , normal speech Skin: dry, normal temperature Psychiatry: unable to evaluate Results Findings/Data: Laboratory Tests 12/14 12/14 12/14 12/14 12/13 1540 1048 0654 0415 1952 Chemistry Sodium (137 - 145 MMOL/L) 125 L 128 L Potassium (3.5 - 5.1 MMOL/L) 4.9 3.9 Chloride (98 - 107 MMOL/L) 94 L 97 L Carbon Dioxide (22 - 30 MMOL/L) 25 27 Anion Gap (14 - 24 MMOL/L) 11 L BUN (9 - 20 MG/DL) 25 H 24 H Creatinine (0.66 - 1.25 MG/DL) 1.10 1.10 Glomerular Filtr Rate > 60 > 60 Glucose (74 - 106 MG/DL) 153 H 124 H POC Glucose (60 - 99 MG/DL) 199 H 108 H 134 H Calcium (8.4 - 10.2 MG/DL) 8.4 8.7 Magnesium (1.6 - 2.3 MG/DL) 1.8 Laboratory Tests 12/14 414 Coagulation INR (0.86 - 1.14) 1.0 PT Patient/Control Mix (9.4 - 12.7 SECONDS) 11 .6 Laboratory Tests 12/14 414 Hematology WBC (3.8 - 9.8 K/MM3) 11.2 H RBC (3.95 - 5.67 M/MM3) 3.09 L Hgb (12.4 - 16.7 G/DL) 9.1 L Hct (35.9 - 49.5 %) 27.4 L MCV (81.7 - 96.1 fL) 89 MCH (27.6 - 33.2 pg) 29.4 MCHC (32.9 - 35.5 %) 33.2 RDW (12.1 - 15.2 %) 12.5 Plt Count (129 - 368 K/MM3) 238 MPV (7.4 - 10.4 fl) 10.2 Neut % (Auto) (43 - 75 %) 65.2 Lymph % (Auto) (14 - 44 %) 21.2 [place] % (Auto) (4 - 13 %) 9.2 Eos % (Auto) (0 - 6 %) 2.8 Baso % (Auto) (0 - 2 %) 0.4 Neut # (Auto) (2.0 - 7.6 K/mm3) 7.32 Lymph # (Auto) (1.0 - 3.8 K/mm3) 2.38 [place] # (Auto) (0.1 - 0.8 K/mm3) 1.03 H Eos # (Auto) (0.0 - 0.2 K/mm3) 0.31 H Baso # (Auto) (0.0 - 0.2 K/mm3) 0.04 Immature Gran % (0.0 - 2.0 %) 1.2 Nucleated RBC % (0 - 1.0 %) 0.0 Nucleated RBCs # (Man) (0.0 - 0.1 K/mm3) 0.00 Diagnosis, Assessment Plan Problem List/A P: 1. S/P AVR (aortic valve replacement) POD#4, post-op pain controlled 2. S/P CABG x 4 Clinically compensated 3. Acute left-sided weakness Suspect small acute pontine stroke per Dr Ravin matthews Pt continue to have dense l eft sided weakness, but slight movement of left hand today. CT head w and w/o con trast showed pituitary macroedenoma invading the jen without mass effect. 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 No MRI for next 4-[address] Aragon Pt will benefit from outpt neurosurgery evaluat ion once fully recovered from his surgery 5. DM2 (diabetes mellitus, type 2) Increase basal insulin lantus 40 unit tonight, serum glucoe well controlled Pt has increased urine output with incr eased thirst, suspect possible central DI 6. HTN (hypertension), benign BP elevated on cardene gtt. - continue amlodipine, and lisinopril. WOuld add hydralazine 25 tid for better controlled - hold coreg due to mild bradycardia 7. Thoracic aortic aneurysm, without rupture 8. Diabetes insipidus Excessive UOP wih increased thirst, suspect pos sible central DI related to macroedenoma c/s nephrology for further w/u Consultants: cardiovascular surgery, hospitalist , neurology Free Text DxA P Notes Free text DxA P notes: Problem List/A P: 1. S/P AVR (aortic valve replacement) post-op pain controlled. wafarin started. 2. S/P CABG x 4 clinically compensated 3. Acute left-sided weakness Suspect small acute pontine stroke per Dr Ravin matthews Pt continue to have dense l eft sided weakness, but slight movement of left hand today. CT head w and w/o con trast showed pituitary macroedenoma invading the jen without mass effect. Neuro recommend MRI before further intervention of mass, due to current condition unable to obtain 4. 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 DM2 (diabetes mellitus, type 2) Continue Lantus 40u HS, and MDSSI Glucos control improved 6. HTN (hypertension), benign - continue amlodipine, lisinopril, hydralazing and was Coreg resumed per CT surgery 7. Thoracic aortic aneurysm, without rupture 8. Diabetes insipidus Excessive UOP wih increased thirst, suspect pos sible central DI related to macroedenoma Nephrology consulted. MONITOR NA Consultants: cardiovascular surgery, hospitalist , neurology DVT PPX: VANESSA Quality: Gen Med Crit Care VTE Prophylaxis VTE prophylaxis initiated: yes Current Medications Current medication review: I attest that the foregoing medication list in t he medical record is true, accurate, and complete to the best of my knowled ge. Advanced Care Plan 65 or Older Discussed with: patient Discussion included: code status (full code) Electronically Signed by Billy Maxwell MD on 2 at 1854 RPT #:[id number] END OF REPORT 2021-12-14 15:23:00-00:00 [id number] [id number] [place] [address] PATIENT NAME: GARCÍA MARRERO ADMIT DATE: 11/17 04/08 ACCOUNT NO: [id number] ROOM NO: Z.SI02 AGE: 66 REPORT TYPE: PROGRESS NOTE SEX: M ADMITTING PHYSICIAN:Wil Aragon MD ATTENDING PHYSICIAN:Wil Aragon MD DATE: 12/14/2021 SUBJECTIVE: He has continued to do well, regaining movements in his left upper extremity. The cardiac wires have appare ntly been removed. I communicated with Dr. Aragon who prefers to w ait a little bit longer before we get an MRI on him. OBJECTIVE: On examination, his hospice consultant is 4/5. He i s able to lift his elbow off the bed and keep it there for a few seconds. His overall strength in the left upper extremity is significantly improved. He re presley with no volitional movements in the left lower extremity, but does withdraw to pain. LABORATORY DATA: There have been no pertinent la bs since I last saw him. ASSESSMENT AND RECOMMENDATIONS: In summary, this 66-year-old man with a past medical history of multiple medical problems, underwent on 12/06/2021 a coronary artery bypass surgery. A day later, while ambula ting, he was noted to be slightly drifting to the left. The next day, whe n he tried to get out of bed, he could not hold himself steady, seemed to disp lay significant left-sided weakness. This later on improved slightly. A CT scan of the brain did not reveal any acute ischemic ch anges, but there was a suprasellar mass, possibly a macroadenoma, invading the right caverno us sinus. His condition worsened later to the point that he developed complete left-davis ed paralysis. Serial imaging continues not to reveal any evolution of ischemic changes. I obtained a CT scan of the brain with and without contrast and it re vealed that the suprasellar mass to be indeed extending and innervating the right cavernous sinus with a lower tip of the mass located anteriorly in fron t of the right mitchell where it contacts that structure, but does not seem to pr oduce any significant compression or edema in that region. The exact r elationship between that finding and his left-sided w eakness continues to be unclear. I am still leaning more towards the fact that he possibly sustained a tiny stroke in the mitchell, especially given the improvement of the symptoms in the left upper extremity. Once cleared by the cardiac surgeon, we will pro ceed with an MRI of the brain with and without contrast. As detailed i n my prior notes, while his brain mass needs to be debulked, there is obviously no great urgency for that at this time, especially that he is still recovering from a co mplicated cardiac surgery. Dictated By: Madalyn Cueto MD Date Dictated: 12/14/2021 15:23:50 Date Transcribed: 12/14/2021 15:48:53 /TIMOTEO PATIENT NAME: GARCÍA MARRERO [id number] Receipt ID: [id number] Authenticated by Madalyn Cueto MD On 09:04:24 PM Electronically Signed by Madalyn Cueto MD on at 0904 PATIENT NAME: GARCÍA MARRERO [id number] 2021-12-14 14:37:00-00:00 [facility] Cardiovascular Surgery Prog REPORT#:[id number] REPORT STATUS: Signed DATE:12/14/21 TIME: 1437 PATIENT: GARCÍA MARRERO UNIT #: [id number] [address] AGE: 66 SEX: M ATTEND: Ady Aragon MD ADM AUTHOR: Irene Gonzalez * ALL edits or amendments must be made on the [employer]/computer document * General Post-op: day 8 Status post: ACB x 4 and AVR with #21mm Mirza valve Subjective Patient reports: No: complaints. Nursing reports: No: complaints. Comments: The patient is seen at bedside, he is doing well and has been making some improvement. He is able to m ove his left hand to touch his face today. He denies having any chest pain or SOB Review of Systems Constitutional: Reports: generalized weakness. Denies: chills, f atigue, fever. Respiratory: Denies: SOB. Cardiovascular: Denies: chest pain. Neuro: Reports: weakness (left upper and lower extremit i). Objective General VS/I O: Last Documented: Result Date Time Pulse Ox 95 12/14 0802 FiO2 21 12/14 0802 O2 Delivery Room air 12/14 0802 Temp 35.9 12/14 0800 O2 Flow Rate 2 12/14 0800 Pulse 58 12/14 0115 Resp 15 12/14 0115 B/P 151/70 12/13 1600 B/P Mean 97 12/13 1600 24 hour I O ending at 0700: 12/14 0700 12/13 1900 Intake Total 900.00 1615.00 Output Total 990 1300 Balance -90 315.00 Intake, IV 330.00 315.00 Intake, Oral 570 1300 Output, Urine 990 1300 PATIENT WEIGHT: Weight (lb): 261 Weight (oz): 8.76 Weight (kg): 118.388 Medications: Active Meds + DC'd Last 24 Hrs Desmopressin Acetate (DDAVP NASAL SPRAY) 1 SPRAY DAILY NASAL (CKD) Polyethylene Glycol (MIRALAX) 17 GM DAILY PO Carvedilol (COREG) 6.25 MG Q12HR PO Warfarin Sodium (COUMADIN) 5 MG QPM PO Desmopressin Acetate (DDAVP NASAL SPRAY) 1 SPRAY BID NASAL (DC) Hydralazine HCl (APRESOLINE) 10 MG Q6H PRN PRN I V Lisinopril (PRINIVIL) 40 MG BID PO (CKD) Hydralazine HCl (APRESOLINE) 25 MG Q8HR PO Amlodipine Besylate (NORVASC TAB) 5 MG BID PO Benzocaine/Menthol (Cepacol Sore Throat Lozenge) 1 TAB Q2H PRN PRN MM ( CKD) Docusate Sodium (COLACE) 100 MG BID PO Insulin Glargine (Lantus/Semglee) 40 UNITS BEDTI ME SUBQ Insulin Human Lispro (HumaLOG) MEDIUM DOSE SLIDI NG SCALE AC HS SUBQ Nicardipine HCl (CARDENE I.V.) 50 MG ASDIR IV (C KD) Sodium Chloride (SODIUM CHLORIDE 0.9%) 230 ML Aspirin (ASPIRIN EC) 81 MG BEDTIME PO Clopidogrel Bisulfate (PLAVIX) 75 MG DAILY PO Famotidine (PEPCID) 20 MG BID PO Vwjlz-2-Nehz Ethyl Esters (LOVAZA) 1 GM DAILY PO (CKD) Atorvastatin Calcium (LIPITOR) 80 MG BEDTIME PO Fenofibrate (TRICOR) 108 MG BEDTIME PO Levothyroxine Sodium (Synthroid) 125 MCG DAILY@0 630 PO Meperidine HCl (DEMEROL (C-II)) 25 MG Q4H PRN CO N IM Meperidine HCl (DEMEROL (C-II)) 50 MG Q4H PRN CO N IM Calcium Gluconate/Sodium Chloride (Calcium Gluco scott 1 GM/NS 100 mL) 100 ML ASDIR PRN IV Dobutamine HCl/Dextrose (DOBUTamine HCL IN DEXTR OSE) 250 ML ASDIR PRN IV Epinephrine (EPINEPHrine/NS 4MG/250ML) 250 ML DIR PRN IV Hydrocodone Bitart/Acetaminophen (NORCO 5/325 TA BLET (C-II)) 1 TAB Q4H PRN PRN PO Hydrocodone Bitart/Acetaminophen (NORCO 5/325 TA BLET (C-II)) 2 TAB Q4H PRN PRN PO Lidocaine HCl/Dextrose (Lidocaine 0.4% in D5w So ln) 500 ML ASDIR PRN IV (CKD) Magnesium Sulfate (MAG SULFATE 2GM PREMIX) 50 ML ASDIR PRN IV Magnesium Sulfate/Dextrose (Magnesium Sulfate) 1 00 ML ASDIR PRN IV Nicardipine HCl (CARDENE I.V.) 25 MG ASDIR PRN I V (CKD) Sodium Chloride (SODIUM CHLORIDE 0.9%) 250 ML Ondansetron HCl (ZOFRAN) 4 MG Q8H PRN PRN IV Potassium Chloride (Potassium Chloride) 50 ML DIR PRN IV Dextrose/Water (DEXTROSE 50% IN WATER) 12.5 GM A SDIR PRN IV Dextrose/Water (DEXTROSE 50% IN WATER) 25 GM ASD IR PRN IV Nicardipine HCl (CARDENE I.V.) 25 MG ASDIR PRN IV (CKD) Sodium Chloride (SODIUM CHLORIDE 0.9%) 250 ML Sodium Bicarbonate (Sodium Bicarbonate) 50 MEQ A SDIR PRN IV Acetaminophen (TYLENOL) 650 MG Q4H PRN PRN PO Magnesium Hydroxide (MILK OF MAGNESIA) 30 ML ASD IR PRN PO Zolpidem Tartrate (AMBIEN (C-IV)) 5 MG BEDTIME P RN PRN PO Dietitian nutrition assessment The data set between the solid lines has been im ported from the dietitian's assessment. BMI Calculated: 35.4 Nutrition related diagnosis: Nutrition diagnosis details: Nutrition problem: INCREASED ENERGY NEEDS Nutrition etiology: THE ROLE PROTEIN AND , ENERG Y IN RECOVERY Nutrition signs and symptoms: S/P CABG Nutrition prescription: - CONTINUE 5 CCD DIABETI C DIET. - CONTINUE TO MEET AT LEAST 75% OF ESTIMATED ENERGY AND PROTEIN DAILY NEEDS. Dietitian name: Kylie Colorado, DIET Assessment completed: 12/13/21 Nutrition provider diagnosis: no nutrition diagn osis Review of dietitian's assessment: unavailable at this time Physical Exam General appearance: alert, awake, oriented, no a cute distress Wound/incision: Location: median sternotomy, right lower extrem ity Site condition: dressing clean dry, incision in tact, no drainage, no erythema, Sternum is stable Neck: non-tender, no bruit/NL carotids Cardiovascular: BP/pulses equal bilat., normal h eart sounds, regular rate rhythm, no ectopy Respiratory: aerating well Abdomen: soft, non-tender, normal bowel sounds Extremities: no edema, LUE w eakness, however he is able to move his left hand up to fis face today He is able to move the toes on his left foot today Neuro/CUTTER WOODWIND REEDS: alert, oriented X 3 Results Findings/Data: Laboratory Tests 12/14 12/14 12/14 12/13 12/13 1048 0654 0415 1951 1719 Chemistry Sodium (137 - 145 MMOL/L) 128 L Potassium (3.5 - 5.1 MMOL/L) 3.9 Chloride (98 - 107 MMOL/L) 97 L Carbon Dioxide (22 - 30 MMOL/L) 27 BUN (9 - 20 MG/DL) 24 H Creatinine (0.66 - 1.25 MG/DL) 1.10 Glomerular Filtr Rate > 60 Glucose (74 - 106 MG/DL) 124 H POC Glucose (60 - 99 MG/DL) 199 H 108 H 134 H 1 69 H Calcium (8.4 - 10.2 MG/DL) 8.7 Magnesium (1.6 - 2.3 MG/DL) 1.8 Laboratory Tests 12/14 414 Coagulation INR (0.86 - 1.14) 1.0 PT Patient/Control Mix (9.4 - 12.7 SECONDS) 11. 6 Laboratory Tests 12/14 414 Hematology WBC (3.8 - 9.8 K/MM3) 11.2 H RBC (3.95 - 5.67 M/MM3) 3.09 L Hgb (12.4 - 16.7 G/DL) 9.1 L Hct (35.9 - 49.5 %) 27.4 L MCV (81.7 - 96.1 fL) 89 MCH (27.6 - 33.2 pg) 29.4 MCHC (32.9 - 35.5 %) 33.2 RDW (12.1 - 15.2 %) 12.5 Plt Count (129 - 368 K/MM3) 238 MPV (7.4 - 10.4 fl) 10.2 Neut % (Auto) (43 - 75 %) 65.2 Lymph % (Auto) (14 - 44 %) 21.2 [place] % (Auto) (4 - 13 %) 9.2 Eos % (Auto) (0 - 6 %) 2.8 Baso % (Auto) (0 - 2 %) 0.4 Neut # (Auto) (2.0 - 7.6 K/mm3) 7.32 Lymph # (Auto) (1.0 - 3.8 K/mm3) 2.38 [place] # (Auto) (0.1 - 0.8 K/mm3) 1.03 H Eos # (Auto) (0.0 - 0.2 K/mm3) 0.31 H Baso # (Auto) (0.0 - 0.2 K/mm3) 0.04 Immature Gran % (0.0 - 2.0 %) 1.2 Nucleated RBC % (0 - 1.0 %) 0.0 Nucleated RBCs # (Man) (0.0 - 0.1 K/mm3) 0.00 Diagnosis, Assessment Plan Free Text A P: Pt. with CAD and aortic stenosis S/P ACB x 4 and AVR with #21mm Mirza tissue va lve Hypertension on Cardene gtt Diabetes Hyperlipidemia Pituitary micoadenoma Polydipsia PT/INR subtherapeutic PLAN: Continue oral anti hypertensives PT/OT Encourage use of IS Wean off Cardene gtt Continue warfarin 5mg Daily PT/INR D/C Pacer wires D/C Central line Insert midline D/C arterial line Inpatient rehab evaluation at 1443 at 1015 RPT #:[id number] END OF REPORT 2021-12-13 19:52:00-00:00 [id number] [place] [address] PATIENT NAME: GRACÍA MARRERO ADMIT DATE: ACCOUNT NO: [id number] ROOM NO: Z.SI02 AGE: 66 REPORT TYPE: PROGRESS NOTE SEX: M ADMITTING PHYSICIAN:Wil Aragon MD ATTENDING PHYSICIAN:Wil Aragon MD DATE: 12/13/2021 NEUROLOGY PROGRESS NOTE SUBJECTIVE: There have been no new events since I last saw him. His nurse tells me that he has been ep isodically noted to reach out with his left hand to touch his face. On examination, he continues to get stronger in his left hand with improved hospice consultant. He is able to shrug his left shoulder, fle x his elbow. There have been no pertinent labs since I last s aw him. ASSESSMENT AND RECOMMENDATIONS: In summary, this 66-year-old man with a past medical history of multiple medical problems, underwent on 12/06/2021 a coronary artery bypass surgery. A day later, while ambula ting, he was noted to be slightly drifting to the left. The next day, whe n he tried to get out of bed, he could not hold himself steady, seems to displ ay significant left-sided weakness. This later on improved slightly. 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 His condition worsened later on to the point that he deve loped complete left-sided paralysis. Serial imaging continued not to reveal any evolution of ischemic changes. I obtained a CT scan of the brain with and withou t contrast and it reveals the suprasellar mass to be indeed extending and invading the right cavernou s sinus with the lower tip of the mass located anteriorly in front of the righ t mitchell where it contacts that structure, but does not seem to produce any significant compression or edema in that region. The exact relationship between that finding and his left-sided weakness continues to be unc lear. I am still leaning more towards the fact that he possibly sustained a tiny stroke in t he mitchell. We are awaiting to be able to perform an MRI of the brain as soon as his cardi ac leads are taken out. This will need to be done with and without co ntrast. As detailed in my prior notes, while his brain mass needs to be debulke d, there is obviously no great urgency for that at this time, espec ially that he is still recovering from a complicated cardiac surgery. Dictated By: Madalyn Cueto MD Date Dictated: 12/13/2021 19:52:45 Date Transcribed: 12/13/2021 22:49:15 /CHARBEL PATIENT NAME: GARCÍA MARRERO [id number] Receipt ID: [id number] Authenticated by Madalyn Cueto MD On 2 09:04:21 PM Electronically Signed by Madalyn Cueto MD on 1 at 0904 PATIENT NAME: GARCÍA MARRERO ACCOUNT #: [id number] 2021-12-13 17:44:00-00:00 [facility] Hospitalist Progress Note REPORT#:[id number] REPORT STATUS: Signed DATE:12/13/21 TIME: 1744 PATIENT: GARCÍA MARRERO UNIT #: [id number] ROOM[address]BED: [address] : [address] AGE: 66 SEX: M ATTEND: Ady Aragon MD ADM AUTHOR: Billy Maxwell MD * ALL edits or amendments must be made on the [employer]/computer document * Subjective Chief complaint: s/p ACB and AVR HPI: POD#5 ACB and AVR No acute events overnight. C ontinues to have left sided weakness, weak hospice consultant LUE and unable to move LLE, noticable left sided fac ial droop. Pt remains intermittently paced. Free Text Subj Notes Free Text Subj Notes: NO ACUTE CHANGE. VSS. Review of Systems All systems rev neg: except as marked Objective General VS/I O: Vital Signs: Date Time Temp Pulse Resp B/P B/P Pulse O2 O2 F low FiO2 Mean Ox Delivery Rate 12/13 1730 52 16 100 12/13 1715 49 14 12/13 1700 42 17 100 12/13 1645 52 27 100 12/13 1630 42 21 100 12/13 1615 41 21 100 12/13 1600 46 14 100 12/13 1545 42 20 100 12/13 1530 48 14 100 12/13 1515 58 18 100 12/13 1500 68 42 92 12/13 1445 56 14 12/13 1430 58 15 12/13 1415 63 12 12/13 1400 69 16 100 12/13 1345 58 15 100 12/13 1330 64 19 100 12/13 1315 67 14 100 12/13 1300 66 12 100 12/13 1245 75 27 100 12/13 1230 57 14 100 12/13 1215 60 12 100 12/13 1200 65 16 100 12/13 1145 66 20 100 12/13 1130 47 13 98 12/13 1115 30 11 98 12/13 1100 68 16 100 12/13 1045 71 31 100 12/13 1030 75 21 97 12/13 1015 50 12 99 12/13 1000 63 13 100 12/13 0945 54 13 98 12/13 0930 56 13 100 12/13 0915 57 12 93 12/13 0900 65 13 95 12/13 0847 96 Nasal 2 28 cannula 12/13 0845 61 14 100 12/13 0830 52 13 99 12/13 0815 51 13 97 12/13 0800 57 14 98 12/13 0745 52 13 98 12/13 0730 65 12 98 12/13 0715 65 11 100 12/13 0700 47 13 98 12/13 0637 63 11 100 12/13 0600 61 11 100 12/13 0500 60 13 99 12/13 0400 36.2 12/13 0400 52 14 98 12/13 0315 63 15 97 12/13 0300 63 17 97 12/13 0130 71 17 98 12/13 0000 36.3 12/13 0000 69 12 96 12/12 2152 73 14 96 12/12 2100 73 14 99 12/12 2000 79 17 99 12/12 1928 36.1 12/12 1928 Nasal 2 cannula 12/12 1901 99 Nasal 2 28 cannula 12/12 1836 78 13 99 12/12 1830 78 21 97 12/12 1800 79 18 99 24 hour I O ending at 0700: 12/13 0700 12/12 1900 Intake Total 535.00 2250.00 Output Total 950 1775 Balance -415.00 475.00 Intake, IV 185.00 300.00 Intake, Oral 350 1950 Output, Urine 950 1775 PATIENT WEIGHT: Weight (lb): 261 Weight (oz): 8.76 Weight (kg): 118.388 Medications: Active Meds + DC'd Last 24 Hrs Polyethylene Glycol (MIRALAX) 17 GM DAILY PO Carvedilol (COREG) 6.25 MG Q12HR PO Warfarin Sodium (COUMADIN) 5 MG QPM PO Desmopressin Acetate (DDAVP NASAL SPRAY) 1 SPRAY BID NASAL (CKD) Hydralazine HCl (APRESOLINE) 10 MG Q6H PRN PRN I V Lisinopril (PRINIVIL) 40 MG BID PO (CKD) Hydralazine HCl (APRESOLINE) 25 MG Q8HR PO Amlodipine Besylate (NORVASC TAB) 5 MG BID PO Benzocaine/Menthol (Cepacol Sore Throat Lozenge) 1 TAB Q2H PRN PRN MM ( CKD) Docusate Sodium (COLACE) 100 MG BID PO Insulin Glargine (Lantus/Semglee) 40 UNITS BEDTI ME SUBQ Insulin Human Lispro (HumaLOG) MEDIUM DOSE SLIDI NG SCALE AC HS SUBQ Nicardipine HCl (CARDENE I.V.) 50 MG ASDIR IV (C KD) Sodium Chloride (SODIUM CHLORIDE 0.9%) 230 ML Aspirin (ASPIRIN EC) 81 MG BEDTIME PO Clopidogrel Bisulfate (PLAVIX) 75 MG DAILY PO Famotidine (PEPCID) 20 MG BID PO Rawef-3-Qaer Ethyl Esters (LOVAZA) 1 GM DAILY PO (CKD) Atorvastatin Calcium (LIPITOR) 80 MG BEDTIME PO Fenofibrate (TRICOR) 108 MG BEDTIME PO Levothyroxine Sodium (Synthroid) 125 MCG DAILY@ 0630 PO Meperidine HCl (DEMEROL (C-II)) 25 MG Q4H PRN CO N IM Meperidine HCl (DEMEROL (C-II)) 50 MG Q4H PRN CO N IM Calcium Gluconate/Sodium Chloride (Calcium Gluco scott 1 GM/NS 100 mL) 100 ML ASDIR PRN IV Dobutamine HCl/Dextrose (DOBUTamine HCL IN DEXTR OSE) 250 ML ASDIR PRN IV Epinephrine (EPINEPHrine/NS 4MG/250ML) 250 ML DIR PRN IV Hydrocodone Bitart/Acetaminophen (NORCO 5/325 TA BLET (C-II)) 1 TAB Q4H PRN PRN PO Hydrocodone Bitart/Acetaminophen (NORCO 5/325 TA BLET (C-II)) 2 TAB Q4H PRN PRN PO Lidocaine HCl/Dextrose (Lidocaine 0.4% in D5w So ln) 500 ML ASDIR PRN IV (CKD) Magnesium Sulfate (MAG SULFATE 2GM PREMIX) 50 ML ASDIR PRN IV Magnesium Sulfate/Dextrose (Magnesium Sulfate) 1 00 ML ASDIR PRN IV Nicardipine HCl (CARDENE I.V.) 25 MG ASDIR PRN I V (CKD) Sodium Chloride (SODIUM CHLORIDE 0.9%) 250 ML Ondansetron HCl (ZOFRAN) 4 MG Q8H PRN PRN IV Potassium Chloride (Potassium Chloride) 50 ML DIR PRN IV Dextrose/Water (DEXTROSE 50% IN WATER) 12.5 GM A SDIR PRN IV Dextrose/Water (DEXTROSE 50% IN WATER) 25 GM ASD IR PRN IV Nicardipine HCl (CARDENE I.V.) 25 MG ASDIR PRN I V (CKD) Sodium Chloride (SODIUM CHLORIDE 0.9%) 250 ML Sodium Bicarbonate (Sodium Bicarbonate) 50 MEQ A SDIR PRN IV Acetaminophen (TYLENOL) 650 MG Q4H PRN PRN PO Magnesium Hydroxide (MILK OF MAGNESIA) 30 ML ASD IR PRN PO Zolpidem Tartrate (AMBIEN (C-IV)) 5 MG BEDTIME P RN PRN PO Dietitian nutrition assessment The data set between the solid lines has been im ported from the dietitian's assessment. BMI Calculated: 35.4 Nutrition related diagnosis: Nutrition diagnosis details: Nutrition problem: INCREASED ENERGY NEEDS Nutrition etiology: THE ROLE PROTEIN AND , ENERG Y IN RECOVERY Nutrition signs and symptoms: S/P CABG Nutrition prescription: - CONTINUE 5 CCD DIABETI C DIET. - CONTINUE TO MEET AT LEAST 75% OF ESTIMATED ENERGY AND PROTEIN DAILY NEEDS. Dietitian name: Kylie Colorado, DIET Assessment completed: 12/13/21 Physical Exam Head/Eyes: atraumatic, normal eyelids/periorb. ENT: moist mucosal membranes, normal dentition, Maynard gas catheter Cardiovascular: normal heart sounds, reg ular rate rhythm, no murmur, AV pacing Respiratory: aerating well, symmetric expansion Abdomen: non-tender, soft Genitourinary: urinary catheter Extremities: moves all, no clubbing, no cyanosis Neuro/CUTTER WOODWIND REEDS: left hemiparesis, alert, oriented X 3 , normal speech Skin: dry, normal temperature Psychiatry: unable to evaluate Results Findings/Data: Laboratory Tests 12/13 12/13 12/13 12/13 12/12 1719 1157 0622 0500 1956 Chemistry Sodium (137 - 145 MMOL/L) 134 L Potassium (3.5 - 5.1 MMOL/L) 3.9 Chloride (98 - 107 MMOL/L) 101 Carbon Dioxide (22 - 30 MMOL/L) 26 Anion Gap (14 - 24 MMOL/L) 11 L BUN (9 - 20 MG/DL) 25 H Creatinine (0.66 - 1.25 MG/DL) 1.10 Glomerular Filtr Rate > 60 Glucose (74 - 106 MG/DL) 113 H POC Glucose (60 - 99 MG/DL) 169 H 168 H 113 H 1 94 H Calcium (8.4 - 10.2 MG/DL) 8.8 Magnesium (1.6 - 2.3 MG/DL) 1.6 Laboratory Tests 12/13 0500 Coagulation INR (0.86 - 1.14) 1.0 PT Patient/Control Mix (9.4 - 12.7 SECONDS) 11. 6 Laboratory Tests 12/13 0500 Hematology WBC (3.8 - 9.8 K/MM3) 11.0 H RBC (3.95 - 5.67 M/MM3) 3.14 L Hgb (12.4 - 16.7 G/DL) 9.4 L Hct (35.9 - 49.5 %) 28.6 L MCV (81.7 - 96.1 fL) 91 MCH (27.6 - 33.2 pg) 29.9 MCHC (32.9 - 35.5 %) 32.9 RDW (12.1 - 15.2 %) 12.9 Plt Count (129 - 368 K/MM3) 234 MPV (7.4 - 10.4 fl) 10.4 Neut % (Auto) (43 - 75 %) 61.3 Lymph % (Auto) (14 - 44 %) 24.8 [place] % (Auto) (4 - 13 %) 9.8 Eos % (Auto) (0 - 6 %) 3.1 Baso % (Auto) (0 - 2 %) 0.3 Neut # (Auto) (2.0 - 7.6 K/mm3) 6.72 Lymph # (Auto) (1.0 - 3.8 K/mm3) 2.72 [place] # (Auto) (0.1 - 0.8 K/mm3) 1.08 H Eos # (Auto) (0.0 - 0.2 K/mm3) 0.34 H Baso # (Auto) (0.0 - 0.2 K/mm3) 0.03 Immature Gran % (0.0 - 2.0 %) 0.7 Nucleated RBC % (0 - 1.0 %) 0.0 Nucleated RBCs # (Man) (0.0 - 0.1 K/mm3) 0.00 Diagnosis, Assessment Plan Problem List/A P: 1. S/P AVR (aortic valve replacement) POD#4, post-op pain controlled 2. S/P CABG x 4 Clinically compensated 3. Acute left-sided weakness Suspect small acute pontine stroke per Dr Alicia has Pt continue to have dense l eft sided weakness, but slight movement of left hand today. CT head w and w/o con trast showed pituitary macroedenoma invading the jen without mass effect. 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 No MRI for next 4-[address] Aragon Pt will benefit from outpt neurosurgery evaluat ion once fully recovered from his surgery 5. DM2 (diabetes mellitus, type 2) Increase basal insulin lantus 40 unit tonight, serum glucoe well controlled Pt has increased urine output with incr eased thirst, suspect possible central DI 6. HTN (hypertension), benign BP elevated on cardene gtt. - continue amlodipine, and lisinopril. WOuld add hydralazine 25 tid for better controlled - hold coreg due to mild bradycardia 7. Thoracic aortic aneurysm, without rupture 8. Diabetes insipidus Excessive UOP wih increased thirst, suspect pos sible central DI related to macroedenoma c/s nephrology for further w/u Consultants: cardiovascular surgery, hospitalist , neurology Free Text DxA P Notes Free text DxA P notes: Problem List/A P: 1. S/P AVR (aortic valve replacement) post-op pain controlled. wafarin started. 2. S/P CABG x 4 clinically compensated 3. Acute left-sided weakness Suspect small acute pontine stroke per Dr Alicia has Pt continue to have dense l eft sided weakness, but slight movement of left hand today. CT head w and w/o con trast showed pituitary macroedenoma invading the jen without mass effect. Neuro recommend MRI before further intervention of mass, due to current condition unable to obtain 4. 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 DM2 (diabetes mellitus, type 2) Continue Lantus 40u HS, and MDSSI Glucos control improved 6. HTN (hypertension), benign - continue amlodipine, lisinopril, hydralazing and was Coreg resumed per CT surgery 7. Thoracic aortic aneurysm, without rupture 8. Diabetes insipidus Excessive UOP wih increased thirst, suspect pos sible central DI related to macroedenoma Nephrology consulted Consultants: cardiovascular surgery, hospitalist , neurology DVT PPX: WAFARIN Quality: Gen Med Crit Care VTE Prophylaxis VTE prophylaxis initiated: yes Current Medications Current medication review: I attest that the foregoing medication list in t he medical record is true, accurate, and complete to the best of my knowled ge. Advanced Care Plan 65 or Older Discussed with: patient Discussion included: code status (full code) Electronically Signed by Billy Maxwell MD on 2 at 1745 [facility] #:[id number] END OF REPORT 2021-12-13 06:07:00-00:00 [facility] ([facility] Cardiology Progress Note REPORT#:[id number] REPORT STATUS: Signed DATE:12/13/21 TIME: 606 PATIENT: GARCÍA MARRERO UNIT #: [id number] ROOM/BED: SI02-A : 55 AGE: 66 SEX: M ATTEND: Ady Aragon MD ADM AUTHOR: Aidee Armstrong MD * ALL edits or amendments must be made on the el ectronic/computer document * Subjective Chief complaint: L side weakness S/P OR HPI: 66year old male with h/o CAD, , now s/p ACB, A VR. No c/o chest pain, palpitations, dyspnea. Patient reports: No: chest pain, palpitations, shortness of breat h. Objective General VS/I O: 24 hour I O ending at 0700: 12/13 0700 12/12 1900 Intake Total 340.00 2250.00 Output Total 750 1775 Balance -410.00 475.00 Intake, IV 140.00 300.00 Intake, Oral 200 1950 Output, Urine 750 1775 Vital Signs: Date Time Temp Pulse Resp B/P B/P Pulse O2 O2 F low FiO2 Mean Ox Delivery Rate 12/13 0315 63 15 97 12/13 0300 63 17 97 12/13 0130 71 17 98 12/13 0000 97.3 12/13 0000 69 12 96 12/12 2152 73 14 96 12/12 2100 73 14 99 12/12 2000 79 17 99 12/12 1928 97.0 12/12 1928 Nasal 2 cannula 12/12 1901 99 Nasal 2 28 cannula 12/12 1836 78 13 99 12/12 1830 78 21 97 12/12 1800 79 18 99 12/12 1730 81 19 99 12/12 1700 63 16 99 12/12 1700 96.7 63 15 148/69 95 99 Nasal 2 cannula 12/12 1657 63 15 99 12/12 1630 66 15 100 12/12 1600 68 15 99 12/12 1530 70 23 100 12/12 1500 66 15 96 12/12 1430 70 15 97 12/12 1400 71 20 99 12/12 1330 67 14 99 12/12 1300 75 16 100 12/12 1230 75 19 98 12/12 1200 97.0 69 15 148/69 95 97 Nasal 2 cannula 12/12 1200 77 15 99 12/12 1130 72 22 99 12/12 1100 63 13 100 12/12 1030 64 11 100 12/12 1000 64 14 99 12/12 0930 79 22 98 12/12 0900 74 13 98 12/12 0830 61 0 97 12/12 0800 Nasal 2 cannula 12/12 0800 97.1 75 28 146/62 90 95 Nasal 2 cannula 12/12 0800 60 8 97 12/12 0730 74 19 98 12/12 0700 66 13 98 PATIENT WEIGHT: Weight (lb): 261 Weight (oz): 8.76 Weight (kg): 118.388 Medications: Active Meds + DC'd Last 24 Hrs Carvedilol (COREG) 6.25 MG Q12HR PO Warfarin Sodium (COUMADIN) 5 MG QPM PO Desmopressin Acetate (DDAVP NASAL SPRAY) 1 SPRAY BID NASAL (CKD) Carvedilol (COREG) 3.125 MG Q12HR PO (DC) Hydralazine HCl (APRESOLINE) 10 MG Q6H PRN PRN I V Lisinopril (PRINIVIL) 40 MG BID PO (CKD) Hydralazine HCl (APRESOLINE) 25 MG Q8HR PO Amlodipine Besylate (NORVASC TAB) 5 MG BID PO Benzocaine/Menthol (Cepacol Sore Throat Lozenge) 1 TAB Q2H PRN PRN MM ( CKD) Docusate Sodium (COLACE) 100 MG BID PO Insulin Glargine (Lantus/Semglee) 40 UNITS BEDTI ME SUBQ Insulin Human Lispro (HumaLOG) MEDIUM DOSE SLIDI NG SCALE AC HS SUBQ Nicardipine HCl (CARDENE I.V.) 50 MG ASDIR IV (C KD) Sodium Chloride (SODIUM CHLORIDE 0.9%) 230 ML Aspirin (ASPIRIN EC) 81 MG BEDTIME PO Clopidogrel Bisulfate (PLAVIX) 75 MG DAILY PO Famotidine (PEPCID) 20 MG BID PO Rswtu-3-Ryjr Ethyl Esters (LOVAZA) 1 GM DAILY PO (CKD) Atorvastatin Calcium (LIPITOR) 80 MG BEDTIME PO Fenofibrate (TRICOR) 108 MG BEDTIME PO Levothyroxine Sodium (Synthroid) 125 MCG DAILY@0 630 PO Meperidine HCl (DEMEROL (C-II)) 25 MG Q4H PRN CO N IM Meperidine HCl (DEMEROL (C-II)) 50 MG Q4H PRN CO N IM Calcium Gluconate/Sodium Chloride (Calcium Gluco scott 1 GM/NS 100 mL) 100 ML ASDIR PRN IV Dobutamine HCl/Dextrose (DOBUTamine HCL IN DEXTR OSE) 250 ML ASDIR PRN IV Epinephrine (EPINEPHrine/NS 4MG/250ML) 250 ML DIR PRN IV Hydrocodone Bitart/Acetaminophen (NORCO 5/325 TA BLET (C-II)) 1 TAB Q4H PRN PRN PO Hydrocodone Bitart/Acetaminophen (NORCO 5/325 TA BLET (C-II)) 2 TAB Q4H PRN PRN PO Lidocaine HCl/Dextrose (Lidocaine 0.4% in D5w So ln) 500 ML ASDIR PRN IV (CKD) Magnesium Sulfate (MAG SULFATE 2GM PREMIX) 50 ML ASDIR PRN IV Magnesium Sulfate/Dextrose (Magnesium Sulfate) 1 00 ML ASDIR PRN IV Nicardipine HCl (CARDENE I.V.) 25 MG ASDIR PRN I V (CKD) Sodium Chloride (SODIUM CHLORIDE 0.9%) 250 ML Ondansetron HCl (ZOFRAN) 4 MG Q8H PRN PRN IV Potassium Chloride (Potassium Chloride) 50 ML DIR PRN IV Dextrose/Water (DEXTROSE 50% IN WATER) 12.5 GM A SDIR PRN IV Dextrose/Water (DEXTROSE 50% IN WATER) 25 GM ASD IR PRN IV Nicardipine HCl (CARDENE I.V.) 25 MG ASDIR PRN I V (CKD) Sodium Chloride (SODIUM CHLORIDE 0.9%) 250 ML Sodium Bicarbonate (Sodium Bicarbonate) 50 MEQ A SDIR PRN IV Acetaminophen (TYLENOL) 650 MG Q4H PRN PRN PO Magnesium Hydroxide (MILK OF MAGNESIA) 30 ML ASD IR PRN PO Zolpidem Tartrate (AMBIEN (C-IV)) 5 MG BEDTIME P RN PRN PO Status post: s/p ACB X 4 Aortic Stenosis - severe s/p AVR with #21 bio Mirza. Physical Exam General appearance: alert, awake, oriented Head/Eyes: atraumatic, normocephalic, PERRLA ENT: moist mucosal membranes Neck: no bruit/NL carotids, no JVD, no masses or swelling Cardiovascular: CV assessment: regular rate and rhythm, BP puls es = bilaterally Murmur assessment: AVR, I/ JOSEMANUEL Respiratory: on oxygen, clear to auscultation, n o distress Abdomen: soft, non-tender, no mass/organomegaly, no pulsatile mass Upper extremity: UE assessment: no edema, 2+ peripheral pulses Lower extremity: LE assessment: no edema, 2+ peripheral pulses Musculoskeletal: Left weakness Neuro/CUTTER WOODWIND REEDS: left hemiparesis, alert, oriented X 3 Skin: dry, intact Psychiatry: normal affect, normal judgment/insig ht, normal mood, no hallucinations Results Findings/Data: Laboratory Tests 12/12 1725 1430 1125 0641 Chemistry Sodium (137 - 145 MMOL/L) 137 Potassium (3.5 - 5.1 MMOL/L) 3.9 Chloride (98 - 107 MMOL/L) 103 Carbon Dioxide (22 - 30 MMOL/L) 27 Anion Gap (14 - 24 MMOL/L) 11 L BUN (9 - 20 MG/DL) 22 H Creatinine (0.66 - 1.25 MG/DL) 1.20 Glomerular Filtr Rate > 60 Glucose (74 - 106 MG/DL) 183 H POC Glucose (60 - 99 MG/DL) 194 H 175 H 241 H 1 05 H Calcium (8.4 - 10.2 MG/DL) 8.7 Laboratory Tests 12/12 1235 Coagulation INR (0.86 - 1.14) 1.1 PT Patient/Control Mix (9.4 - 12.7 SECONDS) 11. 9 Laboratory Tests 12/13 0500 Hematology WBC (3.8 - 9.8 K/MM3) 11.0 H RBC (3.95 - 5.67 M/MM3) 3.14 L Hgb (12.4 - 16.7 G/DL) 9.4 L Hct (35.9 - 49.5 %) 28.6 L MCV (81.7 - 96.1 fL) 91 MCH (27.6 - 33.2 pg) 29.9 MCHC (32.9 - 35.5 %) 32.9 RDW (12.1 - 15.2 %) 12.9 Plt Count (129 - 368 K/MM3) 234 MPV (7.4 - 10.4 fl) 10.4 Neut % (Auto) (43 - 75 %) 61.3 Lymph % (Auto) (14 - 44 %) 24.8 [place] % (Auto) (4 - 13 %) 9.8 Eos % (Auto) (0 - 6 %) 3.1 Baso % (Auto) (0 - 2 %) 0.3 Neut # (Auto) (2.0 - 7.6 K/mm3) 6.72 Lymph # (Auto) (1.0 - 3.8 K/mm3) 2.72 [place] # (Auto) (0.1 - 0.8 K/mm3) 1.08 H Eos # (Auto) (0.0 - 0.2 K/mm3) 0.34 H Baso # (Auto) (0.0 - 0.2 K/mm3) 0.03 Immature Gran % (0.0 - 2.0 %) 0.7 Nucleated RBC % (0 - 1.0 %) 0.0 Nucleated RBCs # (Man) (0.0 - 0.1 K/mm3) 0.00 Diagnosis, Assessment Plan Hospital course to date: IMP: -CAD s/p ACB X 4 -Aortic Stenosis - severe s/p AVR with #21 bio Mirza. -DM -HTN -HLP -Mild mR -TAA -L hemiparesis post-op, brain tumor noted PLAN: Continue current medical rx. Neuro following PT/OT Pacemaker to backup. at 0457 RPT #:[id number] END OF REPORT 2021-12-12 20:44:00-00:00 [facility] ([facility]) Cardiovascular Surgery Prog REPORT#:[id number] REPORT STATUS: Signed DATE:12/12/21 TIME: 2043 PATIENT: GARCÍA MARRERO UNIT #: [id number] ROOM/BED: [facility] : [facility] AGE: 66 SEX: M ATTEND: Ady Aragon MD ADM AUTHOR: Irene Gonzalez * ALL edits or amendments must be made on the [employer]/computer document * General Post-op: day 6 Status post: ACB x 4 and AVR with #21mm Mirza valve Subjective Patient reports: Yes: complaints. Nursing reports: Yes: complaints. Comments: The patient is seen at [facility], he has a good appetite and continues to drink a lot of water. He is unable to lift his LUE or mo ve his left foot. Review of Systems Constitutional: Reports: generalized weakness. Denies: chills, f atigue, fever. Respiratory: Denies: SOB. Cardiovascular: Denies: chest pain. Neuro: Reports: weakness. Denies: dizziness, slurred sp eech, vision change. Objective General VS/I O: Last Documented: Result Date Time Temp 36.1 12/13 1927 O2 Delivery Nasal cannula 12/13 1927 O2 Flow Rate 2 12/13 1927 Pulse Ox 99 12/12 1901 FiO2 28 12/12 1901 Pulse 78 12/12 1836 Resp 13 12/12 1836 B/P 148/69 12/12 1700 B/P Mean 95 12/12 1700 24 hour I O ending at 0700: 12/12 0700 12/11 1900 Intake Total 835.00 2575.00 Output Total 3250 3650 Balance -2415.00 -1075.00 Intake, IV 435.00 825.00 Intake, Oral 400 1750 Output, Urine 3250 3650 PATIENT WEIGHT: Weight (lb): 261 Weight (oz): 8.76 Weight (kg): 118.388 Medications: Active Meds + DC'd Last 24 Hrs Carvedilol (COREG) 6.25 MG Q12HR PO Warfarin Sodium (COUMADIN) 5 MG QPM PO Desmopressin Acetate (DDAVP NASAL SPRAY) 1 SPRAY BID NASAL (CKD) Carvedilol (COREG) 3.125 MG Q12HR PO (DC) Hydralazine HCl (APRESOLINE) 10 MG Q6H PRN PRN I V Lisinopril (PRINIVIL) 40 MG BID PO (CKD) Hydralazine HCl (APRESOLINE) 25 MG Q8HR PO Amlodipine Besylate (NORVASC TAB) 5 MG BID PO Benzocaine/Menthol (Cepacol Sore Throat Lozenge) 1 TAB Q2H PRN PRN MM ( CKD) Docusate Sodium (COLACE) 100 MG BID PO Insulin Glargine (Lantus/Semglee) 40 UNITS BEDTI ME SUBQ Insulin Human Lispro (HumaLOG) MEDIUM DOSE SLIDI NG SCALE AC HS SUBQ Nicardipine HCl (CARDENE I.V.) 50 MG ASDIR IV (C KD) Sodium Chloride (SODIUM CHLORIDE 0.9%) 230 ML Aspirin (ASPIRIN EC) 81 MG BEDTIME PO Clopidogrel Bisulfate (PLAVIX) 75 MG DAILY PO Famotidine (PEPCID) 20 MG BID PO Uwhba-1-Kfvp Ethyl Esters (LOVAZA) 1 GM DAILY PO (CKD) Atorvastatin Calcium (LIPITOR) 80 MG BEDTIME PO Fenofibrate (TRICOR) 108 MG BEDTIME PO Levothyroxine Sodium (Synthroid) 125 MCG DAILY@0 630 PO Meperidine HCl (DEMEROL (C-II)) 25 MG Q4H PRN CO N IM Meperidine HCl (DEMEROL (C-II)) 50 MG Q4H PRN CO N IM Calcium Gluconate/Sodium Chloride (Calcium Gluco scott 1 GM/NS 100 mL) 100 ML ASDIR PRN IV Dobutamine HCl/Dextrose (DOBUTamine HCL IN DEXTR OSE) 250 ML ASDIR PRN IV Epinephrine (EPINEPHrine/NS 4MG/250ML) 250 ML A SDIR PRN IV Hydrocodone Bitart/Acetaminophen (NORCO 5/325 TA BLET (C-II)) 1 TAB Q4H PRN PRN PO Hydrocodone Bitart/Acetaminophen (NORCO 5/325 TA BLET (C-II)) 2 TAB Q4H PRN PRN PO Lidocaine HCl/Dextrose (Lidocaine 0.4% in D5w So ln) 500 ML ASDIR PRN IV (CKD) Magnesium Sulfate (MAG SULFATE 2GM PREMIX) 50 ML ASDIR PRN IV Magnesium Sulfate/Dextrose (Magnesium Sulfate) 1 00 ML ASDIR PRN IV Nicardipine HCl (CARDENE I.V.) 25 MG ASDIR PRN I V (CKD) Sodium Chloride (SODIUM CHLORIDE 0.9%) 250 ML Ondansetron HCl (ZOFRAN) 4 MG Q8H PRN PRN IV Potassium Chloride (Potassium Chloride) 50 ML DIR PRN IV Dextrose/Water (DEXTROSE 50% IN WATER) 12.5 GM A SDIR PRN IV Dextrose/Water (DEXTROSE 50% IN WATER) 25 GM ASD IR PRN IV Nicardipine HCl (CARDENE I.V.) 25 MG ASDIR PRN I V (CKD) Sodium Chloride (SODIUM CHLORIDE 0.9%) 250 ML Sodium Bicarbonate (Sodium Bicarbonate) 50 MEQ A SDIR PRN IV Acetaminophen (TYLENOL) 650 MG Q4H PRN PRN PO Magnesium Hydroxide (MILK OF MAGNESIA) 30 ML ASD IR PRN PO Zolpidem Tartrate (AMBIEN (C-IV)) 5 MG BEDTIME P RN PRN PO Dietitian nutrition assessment The data set between the solid lines has been im ported from the dietitian's assessment. BMI Calculated: 35.4 Nutrition related diagnosis: Nutrition diagnosis details: Nutrition problem: Nutrition etiology: Nutrition signs and symptoms: Nutrition prescription: Dietitian name: Assessment completed: Nutrition provider diagnosis: no nutrition diagn osis Physical Exam General appearance: alert, awake, oriented, no a cute distress Wound/incision: Location: median sternotomy, right lower extrem ity Site condition: dressing clean dry, incision in tact, no drainage, no erythema, Sternum is stable Neck: non-tender, no bruit/NL carotids Cardiovascular: BP/pulses equal bilat., normal h eart sounds, regular rate rhythm, no ectopy Respiratory: aerating well Abdomen: soft, non-tender, normal bowel sounds Extremities: no edema, LUE weakness. Pt. unable to move the LLE Neuro/CUTTER WOODWIND REEDS: alert, oriented X 3 Results Findings/Data: Laboratory Tests 12/12 12/12 12/12 12/12 12/12 1956 1725 1430 1125 0641 Chemistry Sodium (137 - 145 MMOL/L) 137 Potassium (3.5 - 5.1 MMOL/L) 3.9 Chloride (98 - 107 MMOL/L) 103 Carbon Dioxide (22 - 30 MMOL/L) 27 Anion Gap (14 - 24 MMOL/L) 11 L BUN (9 - 20 MG/DL) 22 H Creatinine (0.66 - 1.25 MG/DL) 1.20 Glomerular Filtr Rate > 60 Glucose (74 - 106 MG/DL) 183 H POC Glucose (60 - 99 MG/DL) 194 H 175 H 241 H 1 05 H Calcium (8.4 - 10.2 MG/DL) 8.7 12/12 0400 Chemistry Sodium (137 - 145 MMOL/L) 140 Potassium (3.5 - 5.1 MMOL/L) 3.7 Chloride (98 - 107 MMOL/L) 105 Carbon Dioxide (22 - 30 MMOL/L) 28 Anion Gap (14 - 24 MMOL/L) 11 L BUN (9 - 20 MG/DL) 19 Creatinine (0.66 - 1.25 MG/DL) 1.20 Glomerular Filtr Rate > 60 Glucose (74 - 106 MG/DL) 111 H Calcium (8.4 - 10.2 MG/DL) 9.3 Magnesium (1.6 - 2.3 MG/DL) 1.8 Laboratory Tests 12/12 1235 Coagulation INR (0.86 - 1.14) 1.1 PT Patient/Control Mix (9.4 - 12.7 SECONDS) 11. 9 Laboratory Tests 12/12 0400 Hematology WBC (3.8 - 9.8 K/MM3) 9.7 RBC (3.95 - 5.67 M/MM3) 3.17 L Hgb (12.4 - 16.7 G/DL) 9.5 L Hct (35.9 - 49.5 %) 29.0 L MCV (81.7 - 96.1 fL) 92 MCH (27.6 - 33.2 pg) 30.0 MCHC (32.9 - 35.5 %) 32.8 L RDW (12.1 - 15.2 %) 12.7 Plt Count (129 - 368 K/MM3) 225 MPV (7.4 - 10.4 fl) 10.4 Neut % (Auto) (43 - 75 %) 59.0 Lymph % (Auto) (14 - 44 %) 26.8 [place] % (Auto) (4 - 13 %) 10.2 Eos % (Auto) (0 - 6 %) 2.8 Baso % (Auto) (0 - 2 %) 0.3 Neut # (Auto) (2.0 - 7.6 K/mm3) 5.71 Lymph # (Auto) (1.0 - 3.8 K/mm3) 2.59 [place] # (Auto) (0.1 - 0.8 K/mm3) 0.99 H Eos # (Auto) (0.0 - 0.2 K/mm3) 0.27 H Baso # (Auto) (0.0 - 0.2 K/mm3) 0.03 Immature Gran % (0.0 - 2.0 %) 0.9 Nucleated RBC % (0 - 1.0 %) 0.0 Nucleated RBCs # (Man) (0.0 - 0.1 K/mm3) 0.00 Results: labs reviewed Diagnosis, Assessment Plan Free Text A P: Pt. with CAD and aortic stenosis S/P ACB x 4 and AVR with #21mm Mirza tissue va lve Hypertension on Cardene gtt Diabetes Hyperlipidemia Pituitary micoadenoma Polydipsia PLAN: Increase carvedilol to 6.25mg PT/OT Encourage use of IS Once off Cardene gtt will remove pacer wires Start warfarin 5mg Daily PT/INR at 2109 at 1016 RPT #:[id number] END OF REPORT 2021-12-12 20:07:00-00:00 [id number] [address] PATIENT NAME: GARCÍA MARRERO ADMIT DATE: 11/17 04/08 ACCOUNT NO: [id number] ROOM NO: [id number].[id number] AGE: 66 REPORT TYPE: PROGRESS NOTE SEX: M ADMITTING PHYSICIAN:Wil Aragon MD ATTENDING PHYSICIAN:Wil Aragon MD DATE: 12/12/2021 SUBJECTIVE: He is doing well, with no new events since I last saw him. He believes his left-sided hospice consultant is getting stronger . On examination, his hospice consultant con tinues to get indeed stronger, now at least 4/5. He still has no volitional movements proxim ally in the left upper extremity or in the entire left lower extremity. There have been no pertinent labs since I last s aw him. ASSESSMENT AND RECOMMENDATIONS: In summary, this 66-year-old man with a past medical history of multiple medical problems, un derwent on 12/06/2021, a coronary artery bypass surgery. A day la ter, while ambulating, he was noted to be slightly drifting to the left. The next day, when he tried to get out of bed, he could not hold himself steady, seemed to disp lay significant left-sided weakness. This later on improved slightl y. 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 His conditio n worsened later on to the point that he developed comp lete left-sided paralysis. Serial imaging continues not to reveal any evolution of ischemic changes. I obtained a CT scan of the brain with and without contrast, and it reveals the suprasellar mass to be indeed extending and invading the right cavernou s sinus with the lower tip located anteriorly in front of the right mitchell where it contacts that structure, but does not seem to produce any significant com pression or edema in that region. The exact relationsh ip between that finding and his left-sided weakness continues to be unclear. I still am lean ing more towards the fact that he must have sustained a tiny stroke in the mitchell, possib ly somehow related to the presence of that mass. We are awaiting an MRI of the brain, which will be obtained as soon as his card iac leads are taken out. While his brain mass needs to be debulked, there is obviously no great urge ncy for that at this time, especially that he is still recovering from a fa irly complex cardiac surgery. Dictated By: Madalyn Cueto MD Date Dictated: 12/12/2021 20:07:56 Date Transcribed: 12/12/2021 22:13:40 /EDSON PATIENT NAME: GARCÍA MARRERO [id number] Receipt ID: [id number] Authenticated by Madalyn Cueto MD On 09:04:16 PM Electronically Signed by Madalyn Cueto MD on at 0904 PATIENT NAME: GARCÍA MARRERO [id number] 2021-12-12 17:51:00-00:00 [facility] ([facility] Hospitalist Progress Note REPORT#:[id number] REPORT STATUS: Signed DATE:12/12/21 TIME: 1750 PATIENT: GARCÍA MARRERO UNIT #: [id number] ROOM/BED: [address] : [birth year] AGE: 66 SEX: M ATTEND: Martha Aragon MD ADM AUTHOR: Billy Maxwell MD * ALL edits or amendments must be made on the el [employer]/computer document * Subjective Chief complaint: s/p ACB and AVR HPI: POD#5 ACB and AVR No acute events overnight. C ontinues to have left sided weakness, weak hospice consultant LUE and unable to move LLE, noticable left sided fac ial droop. Pt remains intermittently paced. Free Text Subj Notes Free Text Subj Notes: no acute change. denies any complaint Review of Systems All systems rev neg: except as marked Objective General VS/I O: Vital Signs: Date Time Temp Pulse Resp B/P B/P Pulse O2 O2 F low FiO2 Mean Ox Delivery Rate 12/12 1700 35.9 63 15 148/69 95 99 Nasal 2 cannula 12/12 1657 63 15 99 12/12 1630 66 15 100 12/12 1600 68 15 99 12/12 1530 70 23 100 12/12 1500 66 15 96 12/12 1430 70 15 97 12/12 1400 71 20 99 12/12 1330 67 14 99 12/12 1300 75 16 100 12/12 1230 75 19 98 12/12 1200 36.1 69 15 148/69 95 97 Nasal 2 cannula 12/12 1200 77 15 99 12/12 1130 72 22 99 12/12 1100 63 13 100 12/12 1030 64 11 100 12/12 1000 64 14 99 12/12 0930 79 22 98 12/12 0900 74 13 98 12/12 0830 61 0 97 12/12 0800 Nasal 2 cannula 12/12 0800 36.2 75 28 146/62 90 95 Nasal 2 cannula 12/12 0800 60 8 97 12/12 0730 74 19 98 12/12 0700 66 13 98 12/12 0500 67 11 100 12/12 0400 36.3 12/12 0400 Nasal 2 cannula 12/12 0320 60 27 93 12/12 0304 98 Nasal 2 28 cannula 12/12 0150 53 29 95 12/12 0020 63 31 99 12/12 0000 36.1 62 24 100/46 64 97 Nasal 2 28 cannula 12/11 2250 77 12 98 12/11 2124 77 22 98 12/12 1999 Nasal 2 28 cannula 12/12 1999 83 26 97 12/12 1927 36.4 12/12 1927 Nasal 2 cannula 12/11 1917 78 20 98 12/11 1900 86 23 98 12/11 1838 86 15 98 12/110 88 28 97 12/11 1800 85 15 99 24 hour I O ending at 0700: 12/12 0700 12/11 1900 Intake Total 835.00 2575.00 Output Total 3250 3650 Balance -2415.00 -1075.00 Intake, IV 435.00 825.00 Intake, Oral 400 1750 Output, Urine 3250 3650 PATIENT WEIGHT: Weight (lb): 261 Weight (oz): 8.76 Weight (kg): 118.388 Medications: Active Meds + DC'd Last 24 Hrs Carvedilol (COREG) 6.25 MG Q12HR PO Warfarin Sodium (COUMADIN) 5 MG QPM PO Desmopressin Acetate (DDAVP NASAL SPRAY) 1 SPRAY BID NASAL (CKD) Carvedilol (COREG) 3.125 MG Q12HR PO (DC) Hydralazine HCl (APRESOLINE) 10 MG Q6H PRN PRN I V Lisinopril (PRINIVIL) 40 MG BID PO (CKD) Hydralazine HCl (APRESOLINE) 25 MG Q8HR PO Amlodipine Besylate (NORVASC TAB) 5 MG BID PO Benzocaine/Menthol (Cepacol Sore Throat Lozenge) 1 TAB Q2H PRN PRN MM ( CKD) Docusate Sodium (COLACE) 100 MG BID PO Insulin Glargine (Lantus/Semglee) 40 UNITS BEDTI ME SUBQ Insulin Human Lispro (HumaLOG) MEDIUM DOSE SLIDI NG SCALE AC HS SUBQ Nicardipine HCl (CARDENE I.V.) 50 MG ASDIR IV ( CKD) Sodium Chloride (SODIUM CHLORIDE 0.9%) 230 ML Aspirin (ASPIRIN EC) 81 MG BEDTIME PO Clopidogrel Bisulfate (PLAVIX) 75 MG DAILY PO Famotidine (PEPCID) 20 MG BID PO Mzpme-3-Oipj Ethyl Esters (LOVAZA) 1 GM DAILY PO (CKD) Atorvastatin Calcium (LIPITOR) 80 MG BEDTIME PO Fenofibrate (TRICOR) 108 MG BEDTIME PO Levothyroxine Sodium (Synthroid) 125 MCG DAILY@0 630 PO Meperidine HCl (DEMEROL (C-II)) 25 MG Q4H PRN CO N IM Meperidine HCl (DEMEROL (C-II)) 50 MG Q4H PRN CO N IM Calcium Gluconate/Sodium Chloride (Calcium Gluco scott 1 GM/NS 100 mL) 100 ML ASDIR PRN IV Dobutamine HCl/Dextrose (DOBUTamine HCL IN DEXTR OSE) 250 ML ASDIR PRN IV Epinephrine (EPINEPHrine/NS 4MG/250ML) 250 ML DIR PRN IV Hydrocodone Bitart/Acetaminophen (NORCO 5/325 TA BLET (C-II)) 1 TAB Q4H PRN PRN PO Hydrocodone Bitart/Acetaminophen (NORCO 5/325 TA BLET (C-II)) 2 TAB Q4H PRN PRN PO Lidocaine HCl/Dextrose (Lidocaine 0.4% in D5w So ln) 500 ML ASDIR PRN IV (CKD) Magnesium Sulfate (MAG SULFATE 2GM PREMIX) 50 ML ASDIR PRN IV Magnesium Sulfate/Dextrose (Magnesium Sulfate) 1 00 ML ASDIR PRN IV Nicardipine HCl (CARDENE I.V.) 25 MG ASDIR PRN I V (CKD) Sodium Chloride (SODIUM CHLORIDE 0.9%) 250 ML Ondansetron HCl (ZOFRAN) 4 MG Q8H PRN PRN IV Potassium Chloride (Potassium Chloride) 50 ML DIR PRN IV Dextrose/Water (DEXTROSE 50% IN WATER) 12.5 GM A SDIR PRN IV Dextrose/Water (DEXTROSE 50% IN WATER) 25 GM ASD IR PRN IV Nicardipine HCl (CARDENE I.V.) 25 MG ASDIR PRN I V (CKD) Sodium Chloride (SODIUM CHLORIDE 0.9%) 250 ML Sodium Bicarbonate (Sodium Bicarbonate) 50 MEQ A SDIR PRN IV Acetaminophen (TYLENOL) 650 MG Q4H PRN PRN PO Magnesium Hydroxide (MILK OF MAGNESIA) 30 ML ASD IR PRN PO Zolpidem Tartrate (AMBIEN (C-IV)) 5 MG BEDTIME P RN PRN PO Dietitian nutrition assessment The data set between the solid lines has been im ported from the dietitian's assessment. BMI Calculated: 35.4 Nutrition related diagnosis: Nutrition diagnosis details: Nutrition problem: Nutrition etiology: Nutrition signs and symptoms: Nutrition prescription: Dietitian name: Assessment completed: Physical Exam Head/Eyes: atraumatic, normal eyelids/periorb. ENT: moist mucosal membranes, normal dentition, Maynard gas catheter Cardiovascular: normal heart sounds, reg ular rate rhythm, no murmur, AV pacing Respiratory: aerating well, symmetric expansion Abdomen: non-tender, soft Genitourinary: urinary catheter Extremities: moves all, no clubbing, no cyanosis Neuro/CUTTER WOODWIND REEDS: left hemiparesis, alert, oriented X 3 , normal speech Skin: dry, normal temperature Psychiatry: unable to evaluate Results Findings/Data: Laboratory Tests 12/12 12/12 12/12 12/12 12/12 1725 1430 1125 0641 0400 Chemistry Sodium (137 - 145 MMOL/L) 137 140 Potassium (3.5 - 5.1 MMOL/L) 3.9 3.7 Chloride (98 - 107 MMOL/L) 103 105 Carbon Dioxide (22 - 30 MMOL/L) 27 28 Anion Gap (14 - 24 MMOL/L) 11 L 11 L BUN (9 - 20 MG/DL) 22 H 19 Creatinine (0.66 - 1.25 MG/DL) 1.20 1.20 Glomerular Filtr Rate > 60 > 60 Glucose (74 - 106 MG/DL) 183 H 111 H POC Glucose (60 - 99 MG/DL) 175 H 241 H 105 H Calcium (8.4 - 10.2 MG/DL) 8.7 9.3 Magnesium (1.6 - 2.3 MG/DL) 1.8 12/12 1951 Chemistry POC Glucose (60 - 99 MG/DL) 159 H Laboratory Tests 12/12 1235 Coagulation INR (0.86 - 1.14) 1.1 PT Patient/Control Mix (9.4 - 12.7 SECONDS) 11. 9 Laboratory Tests 12/12 0400 Hematology WBC (3.8 - 9.8 K/MM3) 9.7 RBC (3.95 - 5.67 M/MM3) 3.17 L Hgb (12.4 - 16.7 G/DL) 9.5 L Hct (35.9 - 49.5 %) 29.0 L MCV (81.7 - 96.1 fL) 92 MCH (27.6 - 33.2 pg) 30.0 MCHC (32.9 - 35.5 %) 32.8 L RDW (12.1 - 15.2 %) 12.7 Plt Count (129 - 368 K/MM3) 225 MPV (7.4 - 10.4 fl) 10.4 Neut % (Auto) (43 - 75 %) 59.0 Lymph % (Auto) (14 - 44 %) 26.8 [place] % (Auto) (4 - 13 %) 10.2 Eos % (Auto) (0 - 6 %) 2.8 Baso % (Auto) (0 - 2 %) 0.3 Neut # (Auto) (2.0 - 7.6 K/mm3) 5.71 Lymph # (Auto) (1.0 - 3.8 K/mm3) 2.59 [place] # (Auto) (0.1 - 0.8 K/mm3) 0.99 H Eos # (Auto) (0.0 - 0.2 K/mm3) 0.27 H Baso # (Auto) (0.0 - 0.2 K/mm3) 0.03 Immature Gran % (0.0 - 2.0 %) 0.9 Nucleated RBC % (0 - 1.0 %) 0.0 Nucleated RBCs # (Man) (0.0 - 0.1 K/mm3) 0.00 Diagnosis, Assessment Plan Problem List/A P: 1. S/P AVR (aortic valve replacement) POD#4, post-op pain controlled 2. S/P CABG x 4 Clinically compensated 3. Acute left-sided weakness Suspect small acute pontine stroke per Dr Alicia has Pt continue to have dense l eft sided weakness, but slight movement of left hand today. CT head w and w/o con trast showed pituitary macroedenoma invading the jen without mass effect. 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 No MRI for next 4-[address] Aragon Pt will benefit from outpt neurosurgery evaluat ion once fully recovered from his surgery 5. DM2 (diabetes mellitus, type 2) Increase basal insulin lantus 40 unit tonight, serum glucoe well controlled Pt has increased urine output with incr eased thirst, suspect possible central DI 6. HTN (hypertension), benign BP elevated on cardene gtt. - continue amlodipine, and lisinopril. WOuld add hydralazine 25 tid for better controlled - hold coreg due to mild bradycardia 7. Thoracic aortic aneurysm, without rupture 8. Diabetes insipidus Excessive UOP wih increased thirst, suspect pos sible central DI related to macroedenoma c/s nephrology for further w/u Consultants: cardiovascular surgery, hospitalist , neurology Free Text DxA P Notes Free text DxA P notes: Problem List/A P: 1. S/P AVR (aortic valve replacement) post-op pain controlled. wafarin started. 2. S/P CABG x 4 clinically compensated 3. Acute left-sided weakness Suspect small acute pontine stroke per Dr Alicia has Pt continue to have dense l eft sided weakness, but slight movement of left hand today. CT head w and w/o con trast showed pituitary macroedenoma invading the jen without mass effect. Neuro recommend MRI before further intervention of mass, due to current condition unable to obtain 4. 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 DM2 (diabetes mellitus, type 2) Continue Lantus 40u HS, and MDSSI Glucos control improved 6. HTN (hypertension), benign - continue amlodipine, lisinopril, hydralazing and was Coreg resumed per CT surgery 7. Thoracic aortic aneurysm, without rupture 8. Diabetes insipidus Excessive UOP wih increased thirst, suspect pos sible central DI related to macroedenoma Nephrology consulted Consultants: cardiovascular surgery, hospitalist , neurology Quality: Gen Med Crit Care VTE Prophylaxis VTE prophylaxis initiated: yes Current Medications Current medication review: I attest that the foregoing medication list in t he medical record is true, accurate, and complete to the best of my knowled ge. Advanced Care Plan 65 or Older Discussed with: patient Discussion included: code status (full code) Electronically Signed by Billy Maxwell MD on 2 at 1753 [facility] #:[id number] END OF REPORT 2021-12-12 08:35:00-00:00 [id number] [facility] [address] [place] [address] PATIENT NAME: GARCÍA MARRERO ADMIT DATE: 11/17 04/08 ACCOUNT NO: [id number] ROOM NO: Z.SI02 AGE: 66 REPORT TYPE: CONSULTATION REPORT SEX: M ADMITTING PHYSICIAN:Wil Aragon MD ATTENDING PHYSICIAN:Wil Aragon MD CONSULTATION DATE: 12/11/2021 REFERRING PHYSICIAN: Dr. Wil Aragon REASON FOR CONSULTATION: Polydipsia. CONSULTING PHYSICIAN: Dr. Faustino Mercado. ATTENDING PHYSICIAN: Dr. Wil Aragon. MILITARY LOGISTICS SPECIALIST: Dr. Faustino Mercado. HISTORY OF PRESENT ILLNESS: The patient is a 66- year-old white male, at the bedside, who is status post otherwise uncomp licated 4-vessel bypass and aortic valve replacement. I was consulted yester day evening at around 11:00 p.m. for a concern of diabetes insipidus . The patient's electrolytes have been relatively stable. The patient recently had a pi tuitary lesion described as a microadenoma. A brain CT on 12/10/2021 with a mass effect into the optic chiasm and invasion of the right cavernous sinus. This was associated with a recent CVA and left-sided weakness. His states he has a long history over 20 years of a heavy fluid drinker, always having th irst, chronically drinking fluids and frequent urination. They said they di d not think anything of it, just very recently in the last couple of months apparently he has had an increase in his thirst. Given his history again he never really put much thought into it. Recently with this finding on C T scan after a workup for a stroke, this one triggered concern. He has no i ssues of nausea, vomiting, fevers, chills. He does not complain of any visi onary issues. Dr. Machkhas neurology is following him. My office note 12/10, part of his workup and review of the note includes an MRI, which at thi s time is not recommended for several weeks. PAST MEDICAL PROBLEMS: At this point, includes: 1. Coronary artery bypass surgery, 3-vessel, . 2. Cerebrovascular accident with left-sided weak ness. 3. 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 4. Diabetes. 5. Hypertension. 6. Aortic valve replacement in November,. SOCIAL HISTORY: Nonsmoker. No alcohol or drugs. with one daughter. PAST SURGICAL HISTORY: Other medical problems include bilateral knee surgeries, PATIENT NAME: GARCÍA MARRERO [id number] facial surgeries, right nasal. FAMILY HISTORY: Includes mother of heart di sease. Father alcoholic cirrhosis. ALLERGIES: NO DRUG ALLERGIES. PHYSICAL EXAMINATION: VITAL SIGNS: On exam, blood pressure 147/62, pul se of 51, temperature 97.1. See EHR for full details. HEAD AND FACE: Normal. NECK: No masses. CHEST: Symmetrical chest wall. ABDOMEN: Nondistended. Moderately centrally obes e. CARDIOVASCULAR: Adequate ____ NEUROLOGICAL: Intact. IMPRESSION: 1. Polyuria reportedly. 2. Polydipsia by report. 3. Suprasellar mass. 4. Weakness and deconditioning, left-sided weakn ess. PLAN: At this time, the patient has a suspicion of diabetes insipidus in a person, who has had a chronic water drinking iss ue. Possibly recently superimposed with a slightly more frequency, who was previously relatively healthy postoperatively, complicated by a stroke . At this time, given the polydipsia history our goal would be to: 1. Get a 24-hour urine collections to establish the high volume polyuria. 2. His electrolytes are relatively stable, so he is able to quantitate with fluid intake at this time. There is some limitat ion given the left-sided weakness, but it is not manifesting elec trolyte issues. We will reevaluate him for possibly some DDAVP intranasally to help him with the symptoms in the interim. I did credit support counselor the patient's and th e patient. 3. I did explain to the as well to the team that ideally this patient would best be benefited by e ndocrinology consult. I understand given the acuity of the patient's issues postoperatively and the non-availability of inpatient endocrinology consult at [facility] s facility, I was asked to assist regarding at least the polyuria component. The patient would discuss with the and the patient that if they cannot get an e ndocrinologist to work up the whole full aspects of the microadenoma as an inpatient, they should de finitely follow up with as outpatient and go ahead and work on that now, so they have something lined up when they get discharged from either the acute c are setting or the inpatient rehab setting, which from what I understand is t he next step in patient's process. We will follow along while here. Dictated By: Jhon Villegas MD Date Dictated: 12/12/2021 08:35:04 Date Transcribed: 12/12/2021 12:18:10 /[place] PATIENT NAME: GARCÍA MARRERO [id number] Receipt ID: [id number] Authenticated by Jhon Villegas MD On 12/19/2021 12:19:43 AM Electronically Signed by Jhon Villegas MD on 07/07 at 1219 PATIENT NAME: GARCÍA MARRERO [id number] 2021-12-12 05:43:00-00:00 [facility] ([facility] Cardiology Progress Note REPORT#:[id number] REPORT STATUS: Signed DATE:12/12/21 TIME: 0543 PATIENT: GARCÍA MARRERO UNIT #: [id number] ROOM/BED: [address] : [address] AGE: 66 SEX: M ATTEND: Martha Aragon MD ADM AUTHOR: Aidee Armstrong MD * ALL edits or amendments must be made on the el [employer]/computer document * Subjective Chief complaint: L side weakness S/P OR HPI: 66year old male with h/o CAD, , now s/p ACB, A VR. No c/o chest pain, palpitations, dyspnea. Nursing reports: No: chest pain, palpitations, shortness of breat h. Objective General VS/I O: 24 hour I O ending at 0700: 09/27 0700 12/11 1900 Intake Total 775.00 2575.00 Output Total 2950 3650 Balance -2175.00 -1075.00 Intake, IV 425.00 825.00 Intake, Oral 350 1750 Output, Urine 2950 3650 Vital Signs: Date Time Temp Pulse Resp B/P B/P Pulse O2 O2 F low FiO2 Mean Ox Delivery Rate 12/12 0500 67 11 100 12/12 0400 97.3 12/12 0400 Nasal 2 cannula 12/12 0320 60 27 93 12/12 0150 53 29 95 12/12 0020 63 31 99 12/12 0000 97.0 62 24 100/46 64 97 Nasal 2 28 cannula 12/11 2250 77 12 98 12/11 2124 77 22 98 12/12 1999 Nasal 2 28 cannula 12/12 1999 83 26 97 12/11 1928 97.5 12/11 192 Nasal 2 cannula 12/11 1917 78 20 98 12/11 1900 86 23 98 12/11 1838 86 15 98 12/11 1830 88 28 97 12/11 1800 85 15 99 12/11 1730 86 18 95 12/11 1700 74 17 94 12/11 1630 75 18 95 12/11 1600 97.2 79 14 151/70 97 95 Nasal 2 cannula 12/11 1600 73 14 96 12/11 1530 76 17 97 12/11 1500 68 13 96 12/11 1430 68 14 97 12/11 1400 67 14 94 12/11 1330 83 21 96 12/11 1300 67 12 94 12/11 1236 82 22 95 12/11 1230 79 18 96 12/11 1200 97.3 78 21 147/72 97 97 Nasal 2 cannula 12/11 1200 66 14 100 12/11 1130 65 13 97 12/11 1100 73 24 84 12/11 1030 65 17 153/71 102 98 12/11 1000 51 12 147/62 89 99 12/11 0930 52 13 156/67 103 97 12/11 0920 53 13 159/72 103 98 12/11 0900 71 34 95 12/11 0830 84 27 158/70 101 97 12/11 0815 64 16 155/72 104 96 12/11 0800 Nasal cannula 12/11 0800 97.1 56 12 156/71 99 97 Nasal 2 cannula 12/11 0800 65 12 98 12/11 0730 75 30 93 12/11 0703 92 Nasal 2 28 cannula 12/11 0700 89 27 96 12/11 0630 65 11 99 PATIENT WEIGHT: Weight (lb): 261 Weight (oz): 8.76 Weight (kg): 118.388 Medications: Active Meds + DC'd Last 24 Hrs Carvedilol (COREG) 3.125 MG Q12HR PO Hydralazine HCl (APRESOLINE) 0 .STK-MED ONE IV ( DC) Hydralazine HCl (APRESOLINE) 10 MG Q6H PRN PRN I V Lisinopril (PRINIVIL) 40 MG BID PO (CKD) Hydralazine HCl (APRESOLINE) 25 MG Q8HR PO Amlodipine Besylate (NORVASC TAB) 5 MG BID PO Benzocaine/Menthol (Cepacol Sore Throat Lozenge) 1 TAB Q2H PRN PRN MM ( CKD) Docusate Sodium (COLACE) 100 MG BID PO Insulin Glargine (Lantus/Semglee) 40 UNITS BEDTI ME SUBQ Insulin Human Lispro (HumaLOG) MEDIUM DOSE SLIDI NG SCALE AC HS SUBQ Lisinopril (PRINIVIL) 20 MG BID PO (DC) Nicardipine HCl (CARDENE I.V.) 50 MG ASDIR IV (C KD) Sodium Chloride (SODIUM CHLORIDE 0.9%) 230 ML Aspirin (ASPIRIN EC) 81 MG BEDTIME PO Clopidogrel Bisulfate (PLAVIX) 75 MG DAILY PO Famotidine (PEPCID) 20 MG BID PO Cfzun-1-Cbga Ethyl Esters (LOVAZA) 1 GM DAILY PO (CKD) Atorvastatin Calcium (LIPITOR) 80 MG BEDTIME PO Fenofibrate (TRICOR) 108 MG BEDTIME PO Mupirocin (BACTROBAN NASAL - ADULT ICU) 1 APPLIC BID NASAL (DC) Levothyroxine Sodium (Synthroid) 125 MCG DAILY@0 630 PO Meperidine HCl (DEMEROL (C-II)) 25 MG Q4H PRN CO N IM Meperidine HCl (DEMEROL (C-II)) 50 MG Q4H PRN CO N IM Calcium Gluconate/Sodium Chloride (Calcium Gluco scott 1 GM/NS 100 mL) 100 ML ASDIR PRN IV Dobutamine HCl/Dextrose (DOBUTamine HCL IN DEXTR OSE) 250 ML ASDIR PRN IV Epinephrine (EPINEPHrine/NS 4MG/250ML) 250 ML DIR PRN IV Hydrocodone Bitart/Acetaminophen (NORCO 5/325 TA BLET (C-II)) 1 TAB Q4H PRN PRN PO Hydrocodone Bitart/Acetaminophen (NORCO 5/325 TA BLET (C-II)) 2 TAB Q4H PRN PRN PO Lidocaine HCl/Dextrose (Lidocaine 0.4% in D5w So ln) 500 ML ASDIR PRN IV (CKD) Magnesium Sulfate (MAG SULFATE 2GM PREMIX) 50 ML ASDIR PRN IV Magnesium Sulfate/Dextrose (Magnesium Sulfate) 1 00 ML ASDIR PRN IV Nicardipine HCl (CARDENE I.V.) 25 MG ASDIR PRN I V (CKD) Sodium Chloride (SODIUM CHLORIDE 0.9%) 250 ML Ondansetron HCl (ZOFRAN) 4 MG Q8H PRN PRN IV Potassium Chloride (Potassium Chloride) 50 ML DIR PRN IV Dextrose/Water (DEXTROSE 50% IN WATER) 12.5 GM A SDIR PRN IV Dextrose/Water (DEXTROSE 50% IN WATER) 25 GM ASD IR PRN IV Nicardipine HCl (CARDENE I.V.) 25 MG ASDIR PRN I V (CKD) Sodium Chloride (SODIUM CHLORIDE 0.9%) 250 ML Sodium Bicarbonate (Sodium Bicarbonate) 50 MEQ A SDIR PRN IV Acetaminophen (TYLENOL) 650 MG Q4H PRN PRN PO Magnesium Hydroxide (MILK OF MAGNESIA) 30 ML ASD IR PRN PO Zolpidem Tartrate (AMBIEN (C-IV)) 5 MG BEDTIME P RN PRN PO Status post: s/p ACB X 4 Aortic Stenosis - severe s/p AVR with #21 bio Mirza. Physical Exam General appearance: alert, awake, oriented Head/Eyes: atraumatic, normocephalic, PERRLA ENT: moist mucosal membranes Neck: no bruit/NL carotids, no JVD, no masses or swelling Cardiovascular: CV assessment: regular rate and rhythm, BP puls es = bilaterally Murmur assessment: AVR, I/ JOSEMANUEL Respiratory: on oxygen, clear to auscultation, n o distress Abdomen: soft, non-tender, no mass/organomegaly, no pulsatile mass Lower extremity: LE assessment: no edema, 2+ peripheral pulses Musculoskeletal: Left weakness Neuro/CUTTER WOODWIND REEDS: left hemiparesis, alert, oriented X 3 Skin: dry, intact Psychiatry: normal affect, normal judgment/insig ht, normal mood, no hallucinations Results Findings/Data: Laboratory Tests 12/12 1619 1056 Chemistry Sodium (137 - 145 MMOL/L) 140 Potassium (3.5 - 5.1 MMOL/L) 3.7 Chloride (98 - 107 MMOL/L) 105 Carbon Dioxide (22 - 30 MMOL/L) 28 Anion Gap (14 - 24 MMOL/L) 11 L BUN (9 - 20 MG/DL) 19 Creatinine (0.66 - 1.25 MG/DL) 1.20 Glomerular Filtr Rate > 60 Glucose (74 - 106 MG/DL) 111 H POC Glucose (60 - 99 MG/DL) 159 H 131 H 210 H Calcium (8.4 - 10.2 MG/DL) 9.3 Magnesium (1.6 - 2.3 MG/DL) 1.8 Laboratory Tests 12/13 399 Hematology WBC (3.8 - 9.8 K/MM3) 9.7 RBC (3.95 - 5.67 M/MM3) 3.17 L Hgb (12.4 - 16.7 G/DL) 9.5 L Hct (35.9 - 49.5 %) 29.0 L MCV (81.7 - 96.1 fL) 92 MCH (27.6 - 33.2 pg) 30.0 MCHC (32.9 - 35.5 %) 32.8 L RDW (12.1 - 15.2 %) 12.7 Plt Count (129 - 368 K/MM3) 225 MPV (7.4 - 10.4 fl) 10.4 Neut % (Auto) (43 - 75 %) 59.0 Lymph % (Auto) (14 - 44 %) 26.8 [place] % (Auto) (4 - 13 %) 10.2 Eos % (Auto) (0 - 6 %) 2.8 Baso % (Auto) (0 - 2 %) 0.3 Neut # (Auto) (2.0 - 7.6 K/mm3) 5.71 Lymph # (Auto) (1.0 - 3.8 K/mm3) 2.59 [place] # (Auto) (0.1 - 0.8 K/mm3) 0.99 H Eos # (Auto) (0.0 - 0.2 K/mm3) 0.27 H Baso # (Auto) (0.0 - 0.2 K/mm3) 0.03 Immature Gran % (0.0 - 2.0 %) 0.9 Nucleated RBC % (0 - 1.0 %) 0.0 Nucleated RBCs # (Man) (0.0 - 0.1 K/mm3) 0.00 Laboratory Tests 12/12 0400 Chemistry Magnesium (1.6 - 2.3 MG/DL) 1.8 Diagnosis, Assessment Plan Hospital course to date: IMP: -CAD s/p ACB X 4 -Aortic Stenosis - severe s/p AVR with #21 bio Mirza. -DM -HTN -HLP -Mild mR -TAA -L hemiparesis post-op, brain tumor noted PLAN: Continue current medical rx. Neuro following PT/OT Pacemaker to backup. at 0457 RPT #:[id number] END OF REPORT 2021-12-11 21:02:00-00:00 [id number] [place] [address] PATIENT NAME: GARCÍA MARRERO ADMIT DATE: 11/17 04/08 ACCOUNT NO: [id number] ROOM NO: Z.SI02 AGE: 66 REPORT TYPE: PROGRESS NOTE SEX: M ADMITTING PHYSICIAN:Wil Aragon MD ATTENDING PHYSICIAN:Wil Aragon MD DATE: NEUROLOGY PROGRESS NOTE SUBJECTIVE: He is doing well. Has no new complai nts. On examination, he was much more awake than the past few days. He was easily attending to his left side. He was answe ring questions and following commands. On examination, he is able t o squeeze fingers on the left with a strength of at least 3+/5. He is able to shrug his left shoulde r. There are no movements in the left lower extremity. There have been no pertinent labs since I last s aw him. ASSESSMENT AND PLAN: In summary, this 66-year-ol d man with a past medical history of multiple medical problems, underwent on 12/06/2021 a coronary artery bypass surgery. A day later, when he tried to get out of bed, he could not hold himself steady, seems to dis play significant left-sided weakness. This later on improved slightly in the afternoon. 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 The day after that, his condition worsened to the point that he was unab le to move his left side. Serial imaging continues not to reveal any evolu tion of any ischemic changes including in the brainstem. On a contras t enhanced CT, his suprasellar mass is definitely extending into the right cavernous si nus with slower tip located anteriorly in front of the r ight mitchell where it contact that structure, but does not seem to produce any significant compression or edema in that region. The exact relationship between that finding and his left-sided weakness is not clear. We will wait until later this wee k when we hopefully can perform an MRI of the brain to completely r ule out stroke and delineate the mass further. This mass will obviously need to be debulked at some point. Dictated By: Madalyn Cueto MD Date Dictated: 12/11/2021 21:02:26 Date Transcribed: 12/11/2021 21:59:26 /[facility] PATIENT NAME: GARCÍA MARRERO [id number] Receipt ID: [id number] Authenticated and Edited by Madalyn Cueto MD O n 01/15/22 9:04:14 PM Electronically Signed by Madalyn Cueto MD on 1 at 0905 PATIENT NAME: GARCÍA MARRERO [id number] 2021-12-11 18:32:00-00:00 [facility] ([facility]) Cardiovascular Surgery Prog REPORT#:[id number] REPORT STATUS: Signed DATE:12/11/21 TIME: 1831 PATIENT: GARCÍA MARRERO UNIT #: [id number] ROOM/BED: [address] : [birth year] AGE: 66 SEX: M ATTEND: Ady Aragon MD ADM AUTHOR: Irene Gonzalez * ALL edits or amendments must be made on the [employer]/computer document * General Post-op: day 5 Status post: ACB x 4 and AVR with #21mm Mirza valve Subjective Patient reports: Yes: complaints. Nursing reports: Yes: complaints. Comments: The patient is seen at bedside, he is currently having dinner and has a good appetite and no difficulty with swallowing. He i s able to move his left hand slowly He has increassed urine output Review of Systems Constitutional: Reports: generalized weakness. Denies: chills, f atigue, fever. Respiratory: Denies: SOB. Cardiovascular: Denies: chest pain. Objective General VS/I O: Last Documented: Result Date Time Pulse Ox 96 12/11 1500 Pulse 68 12/11 1500 Resp 13 12/11 1500 B/P 147/72 12/11 1200 B/P Mean 97 12/11 1200 O2 Delivery Nasal cannula 12/11 1200 O2 Flow Rate 2 12/11 1200 Temp 36.3 12/11 1200 FiO2 28 12/11 0703 24 hour I O ending at 0700: 12/11 0700 12/10 1900 Intake Total 5500.00 75.00 Output Total 5875 250 Balance -375.00 -175.00 Intake, IV 1700.00 75.00 Intake, Oral 3800 Output, Urine 5875 250 PATIENT WEIGHT: Weight (lb): 261 Weight (oz): 8.76 Weight (kg): 118.388 Medications: Active Meds + DC'd Last 24 Hrs Carvedilol (COREG) 3.125 MG Q12HR PO Hydralazine HCl (APRESOLINE) 0 .STK-MED ONE IV ( DC) Hydralazine HCl (APRESOLINE) 10 MG Q6H PRN PRN I V Lisinopril (PRINIVIL) 40 MG BID PO (CKD) Hydralazine HCl (APRESOLINE) 25 MG Q8HR PO Amlodipine Besylate (NORVASC TAB) 5 MG BID PO Benzocaine/Menthol (Cepacol Sore Throat Lozenge) 1 TAB Q2H PRN PRN MM ( CKD) Docusate Sodium (COLACE) 100 MG BID PO Insulin Glargine (Lantus/Semglee) 40 UNITS BEDTI ME SUBQ Insulin Human Lispro (HumaLOG) MEDIUM DOSE SLIDI NG SCALE AC HS SUBQ Lisinopril (PRINIVIL) 20 MG BID PO (DC) Nicardipine HCl (CARDENE I.V.) 50 MG ASDIR IV (C KD) Sodium Chloride (SODIUM CHLORIDE 0.9%) 230 ML Aspirin (ASPIRIN EC) 81 MG BEDTIME PO Clopidogrel Bisulfate (PLAVIX) 75 MG DAILY PO Famotidine (PEPCID) 20 MG BID PO Zdqqq-3-Thzd Ethyl Esters (LOVAZA) 1 GM DAILY PO (CKD) Atorvastatin Calcium (LIPITOR) 80 MG BEDTIME PO Fenofibrate (TRICOR) 108 MG BEDTIME PO Mupirocin (BACTROBAN NASAL - ADULT ICU) 1 APPLIC BID NASAL (DC) Levothyroxine Sodium (Synthroid) 125 MCG DAILY@0 630 PO Meperidine HCl (DEMEROL (C-II)) 25 MG Q4H PRN CO N IM Meperidine HCl (DEMEROL (C-II)) 50 MG Q4H PRN CO N IM Calcium Gluconate/Sodium Chloride (Calcium Gluco scott 1 GM/NS 100 mL) 100 ML ASDIR PRN IV Dobutamine HCl/Dextrose (DOBUTamine HCL IN DEXTR OSE) 250 ML ASDIR PRN IV Epinephrine (EPINEPHrine/NS 4MG/250ML) 250 ML DIR PRN IV Hydrocodone Bitart/Acetaminophen (NORCO 5/325 TA BLET (C-II)) 1 TAB Q4H PRN PRN PO Hydrocodone Bitart/Acetaminophen (NORCO 5/325 TA BLET (C-II)) 2 TAB Q4H PRN PRN PO Lidocaine HCl/Dextrose (Lidocaine 0.4% in D5w So ln) 500 ML ASDIR PRN IV (CKD) Magnesium Sulfate (MAG SULFATE 2GM PREMIX) 50 ML ASDIR PRN IV Magnesium Sulfate/Dextrose (Magnesium Sulfate) 1 00 ML ASDIR PRN IV Nicardipine HCl (CARDENE I.V.) 25 MG ASDIR PRN I V (CKD) Sodium Chloride (SODIUM CHLORIDE 0.9%) 250 ML Ondansetron HCl (ZOFRAN) 4 MG Q8H PRN PRN IV Potassium Chloride (Potassium Chloride) 50 ML DIR PRN IV Dextrose/Water (DEXTROSE 50% IN WATER) 12.5 GM A SDIR PRN IV Dextrose/Water (DEXTROSE 50% IN WATER) 25 GM ASD IR PRN IV Nicardipine HCl (CARDENE I.V.) 25 MG ASDIR PRN I V (CKD) Sodium Chloride (SODIUM CHLORIDE 0.9%) 250 ML Sodium Bicarbonate (Sodium Bicarbonate) 50 MEQ A SDIR PRN IV Acetaminophen (TYLENOL) 650 MG Q4H PRN PRN PO Magnesium Hydroxide (MILK OF MAGNESIA) 30 ML ASD IR PRN PO Zolpidem Tartrate (AMBIEN (C-IV)) 5 MG BEDTIME P RN PRN PO Dietitian nutrition assessment The data set between the solid lines has been im ported from the dietitian's assessment. BMI Calculated: 35.4 Nutrition related diagnosis: Nutrition diagnosis details: Nutrition problem: Nutrition etiology: Nutrition signs and symptoms: Nutrition prescription: Dietitian name: Assessment completed: Nutrition provider diagnosis: no nutrition diagn osis Review of dietitian's assessment: unavailable at this time Physical Exam General appearance: alert, awake, oriented, no a cute distress Wound/incision: Location: median sternotomy, right lower extrem ity Site condition: dressing clean dry, incision in tact, no ecchymosis, no erythema, Sternum is stable Neck: non-tender, no bruit/NL carotids Cardiovascular: BP/pulses equal bilat., normal h eart sounds, regular rate rhythm, no ectopy Respiratory: aerating well Abdomen: soft, non-tender, normal bowel sounds Extremities: no edema, LUE weakness. Pt. unable to move the LLE Neuro/CUTTER WOODWIND REEDS: alert, oriented X 3 Results Findings/Data: Laboratory Tests 12/11 12/11 12/11 12/11 12/11 1619 1056 0500 0500 0500 Chemistry Sodium (137 - 145 MMOL/L) 137 Potassium (3.5 - 5.1 MMOL/L) 3.8 Chloride (98 - 107 MMOL/L) 104 Carbon Dioxide (22 - 30 MMOL/L) 28 Anion Gap (14 - 24 MMOL/L) 9 L BUN (9 - 20 MG/DL) 16 Creatinine (0.66 - 1.25 MG/DL) 1.10 Glomerular Filtr Rate > 60 Glucose (74 - 106 MG/DL) 136 H POC Glucose (60 - 99 MG/DL) 131 H 210 H Serum Osmolality (275 - 295 mOsm/kg) 290.5 Calcium (8.4 - 10.2 MG/DL) 9.0 Total Bilirubin (0.2 - 1.3 MG/DL) 0.6 AST (17 - 59 UNITS/L) 35 ALT (0 - 49 UNITS/L) 21 Total Alk Phosphatase (38 - 126 UNITS/L) 74 Total Protein (6.2 - 7.6 G/DL) 6.7 Albumin (3.5 - 5.0 G/DL) 3.4 L TSH (0.465 - 4.68 MIU/L) 1.840 Free T4 (0.78 - 2.19 NG/DL) 1.1 Free T3 (2.77 - 5.27 PG/ML) 2.91 Cortisol AM Sample (4.46 - 22.7 ug/dL) 19.10 Laboratory Tests 12/11 0500 Hematology WBC (3.8 - 9.8 K/MM3) 9.1 RBC (3.95 - 5.67 M/MM3) 3.17 L Hgb (12.4 - 16.7 G/DL) 9.5 L Hct (35.9 - 49.5 %) 29.0 L MCV (81.7 - 96.1 fL) 92 MCH (27.6 - 33.2 pg) 30.0 MCHC (32.9 - 35.5 %) 32.8 L RDW (12.1 - 15.2 %) 12.5 Plt Count (129 - 368 K/MM3) 163 MPV (7.4 - 10.4 fl) 10.5 H Neut % (Auto) (43 - 75 %) 61.0 Lymph % (Auto) (14 - 44 %) 27.2 [place] % (Auto) (4 - 13 %) 9.1 Eos % (Auto) (0 - 6 %) 2.1 Baso % (Auto) (0 - 2 %) 0.2 Neut # (Auto) (2.0 - 7.6 K/mm3) 5.54 Lymph # (Auto) (1.0 - 3.8 K/mm3) 2.47 [place] # (Auto) (0.1 - 0.8 K/mm3) 0.83 H Eos # (Auto) (0.0 - 0.2 K/mm3) 0.19 Baso # (Auto) (0.0 - 0.2 K/mm3) 0.02 Immature Gran % (0.0 - 2.0 %) 0.4 Nucleated RBC % (0 - 1.0 %) 0.0 Nucleated RBCs # (Man) (0.0 - 0.1 K/mm3) 0.00 Laboratory Tests 12/11 12/11 12/11 0500 0500 0120 Urines Urine Osmolality (300 - 1200 MOS/KG) 309 393 Ur Random Sodium (27 - 287 MMOL/L) 127 125 Diagnosis, Assessment Plan Free Text A P: Pt. with CAD and aortic stenosis S/P ACB x 4 and AVR with #21mm Mirza tissue va lve Hypertension on Cardene gtt Diabetes Hyperlipidemia Pituitary micoadenoma Increased urine output PLAN: Addd carvedilol PT/OT Encourage use of IS Pt. will benefit from Inpatient rehab at 1840 at 1017 RPT #:[id number] END OF REPORT 2021-12-11 10:23:00-00:00 [id number] [address] PATIENT NAME: GARCÍA MARRERO ADMIT DATE: 11/17 04/08 ACCOUNT NO: [id number] ROOM NO: Z.SI02 AGE: 66 REPORT TYPE: ELECTROCARDIOGRAM SEX: M ADMITTING PHYSICIAN:Wil Aragon MD ATTENDING PHYSICIAN:Wil Aragon MD Order: [id number] Test Reason : CAD Test Date/Time Stamp: SatDec 11 2021 10:23:07 Blood Pressure : / mmHG Vent. Rate : 073 BPM Atrial Rate : 073 BPM P-R Int : 200 ms QRS Dur : 116 ms QT Int : 444 ms P-R-T Axes : 013 -22 -27 degree s QTc Int : 489 ms Normal sinus rhythm Inferior infarct , age undetermined Abnormal ECG When compared with ECG of 10-DEC-2021 05:19, (Un confirmed) Sinus rhythm has replaced Electronic ventricular pacemaker Confirmed by SHAHID JENSEN ([id number]) on 12/11/2021 5:37:16 PM Referred By: Wil Aragon Confirmed by:SHAHID LUNDBERG at 1737 PATIENT NAME: GARCÍA MARRERO [id number] 2021-12-11 10:23:00-00:00 [id number] [place] [address] PATIENT NAME: GARCÍA MARRERO ADMIT DATE: 11/17 04/08 ACCOUNT NO: [id number] ROOM NO: Z.SI02 AGE: 66 REPORT TYPE: ELECTROCARDIOGRAM SEX: M ADMITTING PHYSICIAN:Wil Aragon MD ATTENDING PHYSICIAN:Wil Aragon MD Order: [id number] Test Reason : CAD Test Date/Time Stamp: SatDec 11 2021 10:23:07 Blood Pressure : / mmHG Vent. Rate : 073 BPM Atrial Rate : 073 BPM P-R Int : 200 ms QRS Dur : 116 ms QT Int : 444 ms P-R-T Axes : 013 -22 -27 degree s QTc Int : 489 ms Normal sinus rhythm Inferior infarct , age undetermined Abnormal ECG When compared with ECG of 10-DEC-2021 05:19, Sinus rhythm has replaced Electronic ventricular pacemaker Reconfirmed by SHAHID JENSEN ([id number]) on 5:40:15 PM Referred By: Wil Aragon Confirmed by:SHAHID JENSEN at 1740 PATIENT NAME: GARCÍA MARRERO [id number] 2021-12-11 08:01:00-00:00 [facility] ([facility]) Hospitalist Progress Note REPORT#:[id number] REPORT STATUS: Signed DATE:12/11/21 TIME: 800 PATIENT: GARCÍA MARRERO UNIT #: [id number] ROOM/BED: [facility]-A : 55 AGE: 66 SEX: M ATTEND: Ady Aragon MD ADM AUTHOR: Kayla Cooley MD R2 * ALL edits or amendments must be made on the [employer]/computer document * Kayla Cooley 12/11/21 0801: Subjective Chief complaint: s/p ACB and AVR HPI: POD#5 ACB and AVR No acute events overnight. C ontinues to have left sided weakness, weak hospice consultant LUE and unable to move LLE, noticable left sided fac ial droop. Pt remains intermittently paced. Review of Systems Constitutional: Denies: chills, fever. Respiratory: Denies: non productive cough, SOB. Cardiovascular: Denies: chest pain. GI: Denies: abdominal pain, nausea, vomiting. Neuro: Reports: focal weakness, gait problem, weakness. All systems rev neg: except as marked Objective General VS/I O: Vital Signs: Date Time Temp Pulse Resp B/P B/P Pulse O2 O2 F low FiO2 Mean Ox Delivery Rate 12/11 0703 92 Nasal 2 28 cannula 12/11 0006 65 14 96 12/11 0000 65 13 119/59 83 96 12/10 2300 59 12 146/66 95 95 12/10 2300 97.0 97 Nasal 2 cannula 12/10 2230 69 13 139/71 98 93 12/10 2205 74 17 149/72 104 93 12/10 2200 79 15 93 12/10 2130 85 17 122/74 94 93 12/10 2100 72 15 94 12/10 2030 50 13 153/70 100 93 12/10 2000 71 17 147/78 104 93 12/10 1956 93 Nasal 2 28 cannula 12/10 1930 60 13 147/72 102 93 12/10 1900 Nasal 2 cannula 12/10 1900 56 15 153/69 99 12/10 190 97.5 93 2 12/10 1830 57 13 156/74 106 92 12/10 1800 65 17 145/74 101 96 12/10 1730 66 18 153/67 97 96 12/10 1700 69 19 160/75 108 96 12/10 1630 66 15 144/66 95 95 12/10 1600 Nasal 2 cannula 12/10 1600 73 26 167/72 104 93 12/10 1530 65 12 122/60 86 92 12/10 1500 65 12 110/57 80 92 12/10 1430 65 12 135/59 85 93 12/10 1404 65 11 92 12/10 1400 65 10 138/65 93 89 12/10 1355 61 114/79 92 12/10 1330 75 20 153/79 110 95 12/10 1300 65 13 98/76 83 94 12/10 1230 65 10 109/83 93 95 12/10 1203 60 16 116/64 84 92 12/10 1200 Nasal 2 cannula 12/10 1200 57 22 91 12/10 1130 65 12 93 12/10 1115 93 Nasal 2 28 cannula 12/10 1100 65 12 93 12/10 1030 65 14 93 12/10 1000 75 25 94 12/10 0958 75 11 137/64 92 94 12/10 0930 75 11 94 12/10 0900 42 22 94 12/10 0830 43 18 92 24 hour I O ending at 0700: 12/11 0700 12/10 1900 Intake Total 5050.00 75.00 Output Total 5375 250 Balance -325.00 -175.00 Intake, IV 1550.00 75.00 Intake, Oral 3500 Output, Urine 5375 250 PATIENT WEIGHT: Weight (lb): 261 Weight (oz): 8.76 Weight (kg): 118.388 Physical Exam General appearance: alert, awake, oriented Head/Eyes: atraumatic, normal eyelids/periorb. ENT: moist mucosal membranes, normal dentition, Maynard gas catheter Cardiovascular: normal heart sounds, reg ular rate rhythm, no murmur, AV pacing Respiratory: aerating well, symmetric expansion Abdomen: non-tender, soft Genitourinary: urinary catheter Extremities: moves all, no clubbing, no cyanosis Neuro/CUTTER WOODWIND REEDS: left hemiparesis, alert, oriented X 3 , normal speech Skin: dry, normal temperature Psychiatry: unable to evaluate Results Findings/Data: Laboratory Tests 12/11 12/11 12/11 12/10 12/10 0500 0500 0500 1645 1056 Chemistry Sodium (137 - 145 MMOL/L) 137 Potassium (3.5 - 5.1 MMOL/L) 3.8 Chloride (98 - 107 MMOL/L) 104 Carbon Dioxide (22 - 30 MMOL/L) 28 Anion Gap (14 - 24 MMOL/L) 9 L BUN (9 - 20 MG/DL) 16 Creatinine (0.66 - 1.25 MG/DL) 1.10 Glomerular Filtr Rate > 60 Glucose (74 - 106 MG/DL) 136 H POC Glucose (60 - 99 MG/DL) 148 H 168 H Calcium (8.4 - 10.2 MG/DL) 9.0 Total Bilirubin (0.2 - 1.3 MG/DL) 0.6 AST (17 - 59 UNITS/L) 35 ALT (0 - 49 UNITS/L) 21 Total Alk Phosphatase (38 - 126 UNITS/L) 74 Total Protein (6.2 - 7.6 G/DL) 6.7 Albumin (3.5 - 5.0 G/DL) 3.4 L TSH (0.465 - 4.68 MIU/L) 1.840 Free T4 (0.78 - 2.19 NG/DL) 1.1 Free T3 (2.77 - 5.27 PG/ML) 2.91 Laboratory Tests 12/11 0500 Hematology WBC (3.8 - 9.8 K/MM3) 9.1 RBC (3.95 - 5.67 M/MM3) 3.17 L Hgb (12.4 - 16.7 G/DL) 9.5 L Hct (35.9 - 49.5 %) 29.0 L MCV (81.7 - 96.1 fL) 92 MCH (27.6 - 33.2 pg) 30.0 MCHC (32.9 - 35.5 %) 32.8 L RDW (12.1 - 15.2 %) 12.5 Plt Count (129 - 368 K/MM3) 163 MPV (7.4 - 10.4 fl) 10.5 H Neut % (Auto) (43 - 75 %) 61.0 Lymph % (Auto) (14 - 44 %) 27.2 [place] % (Auto) (4 - 13 %) 9.1 Eos % (Auto) (0 - 6 %) 2.1 Baso % (Auto) (0 - 2 %) 0.2 Neut # (Auto) (2.0 - 7.6 K/mm3) 5.54 Lymph # (Auto) (1.0 - 3.8 K/mm3) 2.47 [place] # (Auto) (0.1 - 0.8 K/mm3) 0.83 H Eos # (Auto) (0.0 - 0.2 K/mm3) 0.19 Baso # (Auto) (0.0 - 0.2 K/mm3) 0.02 Immature Gran % (0.0 - 2.0 %) 0.4 Nucleated RBC % (0 - 1.0 %) 0.0 Nucleated RBCs # (Man) (0.0 - 0.1 K/mm3) 0.00 Laboratory Tests 12/11 12/11 12/11 0500 0500 0120 Urines Urine Osmolality (300 - 1200 MOS/KG) 309 393 Ur Random Sodium (27 - 287 MMOL/L) 127 125 Radiology data: Recent Impressions: CAT SCAN - CT HD/BR W W/O CONT 12/10 1000 Report Impression - Status: SIGNED Entered: 12/10/2021 1116 IMPRESSION: 1. 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 2. 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 Impression By: [email or web address] - Pal Osman MD Diagnosis, Assessment Plan Problem List/A P: 1. S/P AVR (aortic valve replacement) POD#5, post-op pain controlled 2. S/P CABG x 4 clinically compensated 3. Acute left-sided weakness Suspect small acute pontine stroke per Dr Alicia has Pt continue to have dense l eft sided weakness, but slight movement of left hand today. CT head w and w/o con trast showed pituitary macroedenoma invading the jen without mass effect. Neuro recommend MRI before further intervention of mass, due to current condition unable to obtain 4. 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 DM2 (diabetes mellitus, type 2) Continue Lantus 40u HS, and MDSSI Glucos control improved 6. HTN (hypertension), benign - continue amlodipine, lisinopril, hydralazing and was Coreg resumed per CT surgery 7. Thoracic aortic aneurysm, without rupture 8. Diabetes insipidus Excessive UOP wih increased thirst, suspect pos sible central DI related to macroedenoma Nephrology consulted Consultants: cardiovascular surgery, hospitalist , neurology Free Text DxA P Notes Free text DxA P notes: POD#5, Pt's post-op pain controlled, but now has worsening left hemiparesis, recommend MRI of brain for further evaluation wh en patient elligable - PT/OT and speech eval. Pt will likely need IP R - Continue asa, plavix, and statin - Continue lantus 40 units tonight; BSG control l improving - Continue amlodipine, lisinopril 20 bid, hydra lazine, and Coreg DVt/GI prophylaxis Will continue to follow Quality: Gen Med Crit Care VTE Prophylaxis VTE prophylaxis initiated: yes Current Medications Current medication review: I attest that the foregoing medication list in t he medical record is true, accurate, and complete to the best of my knowled ge. Billy Maxwell 12/12/21 0026: Attestations Teaching Physician Attestation F/U visit w/ resident: I saw the patient with the resident and . . . agree with the resident's findings and plan. agree with the resident's findings and plan EXCE PT: at 2201 Electronically Signed by Billy Maxwell MD on 2 at 0026 RPT #:[id number] END OF REPORT 2021-12-11 07:39:00-00:00 [facility] ([facility]) Cardiology Progress Note REPORT#:[id number] REPORT STATUS: Signed DATE:12/11/21 TIME: 738 PATIENT: GARCÍA MARRERO UNIT #: [id number] ROOM/BED: [facility]-A : 55 AGE: 66 SEX: M ATTEND: Ady Aragon MD ADM AUTHOR: Aidee Armstrong MD * ALL edits or amendments must be made on the el [employer]/computer document * Subjective Chief complaint: L side weakness S/P OR HPI: 66year old male with h/o CAD, , now s/p ACB, A VR. No c/o chest pain, palpitations, dyspnea. Patient reports: No: chest pain, palpitations, shortness of breat h. Objective General VS/I O: 24 hour I O ending at 0700: 12/11 0700 12/10 1900 Intake Total 5050.00 75.00 Output Total 5375 250 Balance -325.00 -175.00 Intake, IV 1550.00 75.00 Intake, Oral 3500 Output, Urine 5375 250 Vital Signs: Date Time Temp Pulse Resp B/P B/P Pulse O2 O2 F low FiO2 Mean Ox Delivery Rate 12/11 0006 65 14 96 12/11 0000 65 13 119/59 83 96 12/10 2300 59 12 146/66 95 95 12/10 2300 97.0 97 Nasal 2 cannula 12/10 2230 69 13 139/71 98 93 12/10 2205 74 17 149/72 104 93 12/10 2200 79 15 93 12/10 2130 85 17 122/74 94 93 12/10 2100 72 15 94 12/10 2030 50 13 153/70 100 93 12/10 2000 71 17 147/78 104 93 12/10 1956 93 Nasal 2 28 cannula 12/10 1930 60 13 147/72 102 93 12/10 1900 Nasal 2 cannula 12/10 1900 56 15 153/69 99 12/10 1900 97.5 93 2 12/10 1830 57 13 156/74 106 92 12/10 1800 65 17 145/74 101 96 12/10 1730 66 18 153/67 97 96 12/10 1700 69 19 160/75 108 96 12/10 1630 66 15 144/66 95 95 12/10 1600 Nasal 2 cannula 12/10 1600 73 26 167/72 104 93 12/10 1530 65 12 122/60 86 92 12/10 1500 65 12 110/57 80 92 12/10 1430 65 12 135/59 85 93 12/10 1404 65 11 92 12/10 1400 65 10 138/65 93 89 12/10 1355 61 114/79 92 12/10 1330 75 20 153/79 110 95 12/10 1300 65 13 98/76 83 94 12/10 1230 65 10 109/83 93 95 12/10 1203 60 16 116/64 84 92 12/10 1200 Nasal 2 cannula 12/10 1200 57 22 91 12/10 1130 65 12 93 12/10 1115 93 Nasal 2 28 cannula 12/10 1100 65 12 93 12/10 1030 65 14 93 12/10 1000 75 25 94 12/10 0958 75 11 137/64 92 94 12/10 0930 75 11 94 12/10 0900 42 22 94 12/10 0830 43 18 92 12/10 0800 67 13 93 PATIENT WEIGHT: Weight (lb): 261 Weight (oz): 8.76 Weight (kg): 118.388 Medications: Active Meds + DC'd Last 24 Hrs Hydralazine HCl (APRESOLINE) 25 MG Q8HR PO Iopamidol (ISOVUE-300) 0 .STK-MED ONE INJ (DC) Amlodipine Besylate (NORVASC TAB) 5 MG BID PO Benzocaine/Menthol (Cepacol Sore Throat Lozenge) 1 TAB Q2H PRN PRN MM ( CKD) Docusate Sodium (COLACE) 100 MG BID PO Insulin Glargine (Lantus/Semglee) 40 UNITS BEDTI ME SUBQ Insulin Human Lispro (HumaLOG) MEDIUM DOSE SLIDI NG SCALE AC HS SUBQ Lisinopril (PRINIVIL) 20 MG BID PO Nicardipine HCl (CARDENE I.V.) 50 MG ASDIR IV (C KD) Sodium Chloride (SODIUM CHLORIDE 0.9%) 230 ML Aspirin (ASPIRIN EC) 81 MG BEDTIME PO Clopidogrel Bisulfate (PLAVIX) 75 MG DAILY PO Famotidine (PEPCID) 20 MG BID PO Wnfcy-2-Abym Ethyl Esters (LOVAZA) 1 GM DAILY PO (CKD) Atorvastatin Calcium (LIPITOR) 80 MG BEDTIME PO Fenofibrate (TRICOR) 108 MG BEDTIME PO Mupirocin (BACTROBAN NASAL - ADULT ICU) 1 APPLIC BID NASAL Levothyroxine Sodium (Synthroid) 125 MCG DAILY@0 630 PO Meperidine HCl (DEMEROL (C-II)) 25 MG Q4H PRN CO N IM Meperidine HCl (DEMEROL (C-II)) 50 MG Q4H PRN CO N IM Calcium Gluconate/Sodium Chloride (Calcium Gluco scott 1 GM/NS 100 mL) 100 ML ASDIR PRN IV Dobutamine HCl/Dextrose (DOBUTamine HCL IN DEXTR OSE) 250 ML ASDIR PRN IV Epinephrine (EPINEPHrine/NS 4MG/250ML) 250 ML DIR PRN IV Hydrocodone Bitart/Acetaminophen (NORCO 5/325 TA BLET (C-II)) 1 TAB Q4H PRN PRN PO Hydrocodone Bitart/Acetaminophen (NORCO 5/325 TA BLET (C-II)) 2 TAB Q4H PRN PRN PO Lidocaine HCl/Dextrose (Lidocaine 0.4% in D5w So ln) 500 ML ASDIR PRN IV (CKD) Magnesium Sulfate (MAG SULFATE 2GM PREMIX) 50 ML ASDIR PRN IV Magnesium Sulfate/Dextrose (Magnesium Sulfate) 1 00 ML ASDIR PRN IV Nicardipine HCl (CARDENE I.V.) 25 MG ASDIR PRN I V (CKD) Sodium Chloride (SODIUM CHLORIDE 0.9%) 250 ML Ondansetron HCl (ZOFRAN) 4 MG Q8H PRN PRN IV Potassium Chloride (Potassium Chloride) 50 ML DIR PRN IV Dextrose/Water (DEXTROSE 50% IN WATER) 12.5 GM A SDIR PRN IV Dextrose/Water (DEXTROSE 50% IN WATER) 25 GM ASD IR PRN IV Nicardipine HCl (CARDENE I.V.) 25 MG ASDIR PRN I V (CKD) Sodium Chloride (SODIUM CHLORIDE 0.9%) 250 ML Sodium Bicarbonate (Sodium Bicarbonate) 50 MEQ A SDIR PRN IV Acetaminophen (TYLENOL) 650 MG Q4H PRN PRN PO Magnesium Hydroxide (MILK OF MAGNESIA) 30 ML ASD IR PRN PO Zolpidem Tartrate (AMBIEN (C-IV)) 5 MG BEDTIME P RN PRN PO Status post: s/p ACB X 4 Aortic Stenosis - severe s/p AVR with #21 bio Mirza. Physical Exam General appearance: alert, awake, oriented Head/Eyes: atraumatic, normocephalic, PERRLA ENT: moist mucosal membranes Neck: no bruit/NL carotids, no JVD, no masses or swelling Cardiovascular: CV assessment: regular rate and rhythm, BP puls es = bilaterally Murmur assessment: AVR, I/ JOSEMANUEL Respiratory: on oxygen, clear to auscultation, n o distress Abdomen: soft, non-tender, no mass/organomegaly, no pulsatile mass Upper extremity: UE assessment: no edema, 2+ peripheral pulses Lower extremity: LE assessment: no edema, 2+ peripheral pulses Musculoskeletal: Left weakness Neuro/CUTTER WOODWIND REEDS: left hemiparesis, alert, oriented X 3 Skin: dry, intact Psychiatry: normal affect, normal judgment/insig ht, normal mood, no hallucinations Results Findings/Data: Laboratory Tests 12/11 12/11 12/10 12/10 0500 0500 1645 1056 Chemistry Sodium (137 - 145 MMOL/L) 137 Potassium (3.5 - 5.1 MMOL/L) 3.8 Chloride (98 - 107 MMOL/L) 104 Carbon Dioxide (22 - 30 MMOL/L) 28 Anion Gap (14 - 24 MMOL/L) 9 L BUN (9 - 20 MG/DL) 16 Creatinine (0.66 - 1.25 MG/DL) 1.10 Glomerular Filtr Rate > 60 Glucose (74 - 106 MG/DL) 136 H POC Glucose (60 - 99 MG/DL) 148 H 168 H Calcium (8.4 - 10.2 MG/DL) 9.0 Total Bilirubin (0.2 - 1.3 MG/DL) 0.6 AST (17 - 59 UNITS/L) 35 ALT (0 - 49 UNITS/L) 21 Total Alk Phosphatase (38 - 126 UNITS/L) 74 Total Protein (6.2 - 7.6 G/DL) 6.7 Albumin (3.5 - 5.0 G/DL) 3.4 L TSH (0.465 - 4.68 MIU/L) 1.840 Free T3 (2.77 - 5.27 PG/ML) 2.91 Laboratory Tests 12/11 0500 Hematology WBC (3.8 - 9.8 K/MM3) 9.1 RBC (3.95 - 5.67 M/MM3) 3.17 L Hgb (12.4 - 16.7 G/DL) 9.5 L Hct (35.9 - 49.5 %) 29.0 L MCV (81.7 - 96.1 fL) 92 MCH (27.6 - 33.2 pg) 30.0 MCHC (32.9 - 35.5 %) 32.8 L RDW (12.1 - 15.2 %) 12.5 Plt Count (129 - 368 K/MM3) 163 MPV (7.4 - 10.4 fl) 10.5 H Neut % (Auto) (43 - 75 %) 61.0 Lymph % (Auto) (14 - 44 %) 27.2 [place] % (Auto) (4 - 13 %) 9.1 Eos % (Auto) (0 - 6 %) 2.1 Baso % (Auto) (0 - 2 %) 0.2 Neut # (Auto) (2.0 - 7.6 K/mm3) 5.54 Lymph # (Auto) (1.0 - 3.8 K/mm3) 2.47 [place] # (Auto) (0.1 - 0.8 K/mm3) 0.83 H Eos # (Auto) (0.0 - 0.2 K/mm3) 0.19 Baso # (Auto) (0.0 - 0.2 K/mm3) 0.02 Immature Gran % (0.0 - 2.0 %) 0.4 Nucleated RBC % (0 - 1.0 %) 0.0 Nucleated RBCs # (Man) (0.0 - 0.1 K/mm3) 0.00 Laboratory Tests 12/11 12/11 12/11 0500 0500 0120 Urines Urine Osmolality (300 - 1200 MOS/KG) 309 393 Ur Random Sodium (27 - 287 MMOL/L) 127 125 Radiology data: Recent Impressions: CAT SCAN - CT HD/BR W W/O CONT 12/10 1000 Report Impression - Status: SIGNED Entered: 12/10/2021 1116 IMPRESSION: 1. 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 2. 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 Impression By: [email or web address] - Pal Osman MD Diagnosis, Assessment Plan Hospital course to date: IMP: -CAD s/p ACB X 4 -Aortic Stenosis - severe s/p AVR with #21 bio Mirza. -DM -HTN -HLP -Mild mR -TAA -L hemiparesis post-op, brain tumor noted PLAN: Continue current medical rx. Neuro following Ambulate when possible at 1244 RPT #:[id number] END OF REPORT 2021-12-10 23:42:00-00:00 [facility] ([facility] Hospitalist Progress Note REPORT#:[id number] REPORT STATUS: Signed DATE:12/10/21 TIME: 2341 PATIENT: GARCÍA MARRERO UNIT #: [id number] ROOM/BED: [facility]-A : 55 AGE: 66 SEX: M ATTEND: Ady Aragon MD ADM AUTHOR: Faustino Mercado MD * ALL edits or amendments must be made on the [employer] document * Subjective Chief complaint: s/p ACB and AVR HPI: POD#4 ACB and AVR Pt continue to have left davis ed weakness, but he's able to weakly hospice consultant my fingers with his left hand, but stil l no movement of his LLE. His speech and swallowing remains intact. He's also been having la rge urine volume and increased thirst. Pt remains intermittently paced, chest tube sukhdev immanuel yesterday Review of Systems Constitutional: Reports: generalized weakness, lethargy. Denies: chills, fatigue, fever, malaise, recent wt loss, other. Respiratory: Denies: PHELPS (dyspnea on exertion), hemoptysis, n on productive cough, parox nocturnal dyspnea, pleurisy, pleuritic pain, pneumonia, productive cough (sputum ), SOB, wheezing, other. Cardiovascular: Denies: chest pain, PHELPS (dyspnea on exer tion), edema, orthopnea, palpitations, parox nocturnal dyspnea, other. GI: Denies: abdominal pain, anorexia, constipation, diarrhea, dysphagia, GERD, hematemesis, hematochezia, h iatal hernia, melena, nausea, rectal pain, vomiting, other. : Reports: frequency. Objective General VS/I O: Vital Signs: Date Time Temp Pulse Resp B/P B/P Pulse O2 O2 F low FiO2 Mean Ox Delivery Rate 12/10 2300 97.0 97 Nasal 2 cannula 12/11 1955 93 Nasal 2 28 cannula 12/10 1899 Nasal 2 cannula 12/10 1899 97.5 93 2 12/10 1830 57 13 156/74 106 92 12/10 1800 65 17 145/74 101 96 09/25 1730 66 18 153/67 97 96 12/10 1700 69 19 160/75 108 96 12/10 1630 66 15 144/66 95 95 12/10 1600 Nasal 2 cannula 12/10 1600 73 26 167/72 104 93 12/10 1530 65 12 122/60 86 92 12/10 1500 65 12 110/57 80 92 12/10 1430 65 12 135/59 85 93 12/10 1404 65 11 92 12/10 1400 65 10 138/65 93 89 12/10 1355 61 114/79 92 12/10 1330 75 20 153/79 110 95 12/10 1300 65 13 98/76 83 94 12/10 1230 65 10 109/83 93 95 12/10 1203 60 16 116/64 84 92 12/10 1200 Nasal 2 cannula 12/10 1200 57 22 91 12/10 1130 65 12 93 12/10 1115 93 Nasal 2 28 cannula 12/10 1100 65 12 93 12/10 1030 65 14 93 12/10 1000 75 25 94 12/10 0958 75 11 137/64 92 94 12/10 0930 75 11 94 12/10 0900 42 22 94 12/10 0830 43 18 92 12/10 0800 67 13 93 12/10 0730 75 11 92 12/10 0700 Nasal 2 cannula 12/10 0700 75 6 89 12/10 0330 75 11 100 12/10 0300 75 11 97 100 12/10 0230 75 11 99 12/10 0200 75 11 100 12/10 0130 75 12 100 12/10 0115 75 11 99 12/10 0100 75 11 99 12/10 0045 75 12 96 12/10 0030 44 19 94 12/10 0015 75 11 96 12/10 0000 75 11 96 24 hour I O ending at 0700: 12/10 0700 12/09 1900 Intake Total 1376.00 1220.00 Output Total 1370 5400 Balance 6.00 -4180.00 Intake, IV 626.00 620.00 Intake, Oral 750 600 Output, Urine 1370 5400 PATIENT WEIGHT: Weight (lb): 261 Weight (oz): 8.76 Weight (kg): 118.388 Medications: Active Meds + DC'd Last 24 Hrs Iopamidol (ISOVUE-300) 0 .STK-MED ONE INJ (DC) Amlodipine Besylate (NORVASC TAB) 5 MG BID PO Benzocaine/Menthol (Cepacol Sore Throat Lozenge) 1 TAB Q2H PRN PRN MM ( CKD) Docusate Sodium (COLACE) 100 MG BID PO Insulin Glargine (Lantus/Semglee) 40 UNITS BEDTI ME SUBQ Insulin Human Lispro (HumaLOG) MEDIUM DOSE SLIDI NG SCALE AC HS SUBQ Lisinopril (PRINIVIL) 20 MG BID PO Nicardipine HCl (CARDENE I.V.) 50 MG ASDIR IV (C KD) Sodium Chloride (SODIUM CHLORIDE 0.9%) 230 ML Aspirin (ASPIRIN EC) 81 MG BEDTIME PO Clopidogrel Bisulfate (PLAVIX) 75 MG DAILY PO Famotidine (PEPCID) 20 MG BID PO Colgh-8-Qxsk Ethyl Esters (LOVAZA) 1 GM DAILY PO (CKD) Atorvastatin Calcium (LIPITOR) 80 MG BEDTIME PO Fenofibrate (TRICOR) 108 MG BEDTIME PO Mupirocin (BACTROBAN NASAL - ADULT ICU) 1 APPLIC BID NASAL Levothyroxine Sodium (Synthroid) 125 MCG DAILY@0 630 PO Meperidine HCl (DEMEROL (C-II)) 25 MG Q4H PRN CO N IM Meperidine HCl (DEMEROL (C-II)) 50 MG Q4H PRN CO N IM Calcium Gluconate/Sodium Chloride (Calcium Gluco scott 1 GM/NS 100 mL) 100 ML ASDIR PRN IV Dobutamine HCl/Dextrose (DOBUTamine HCL IN DEXTR OSE) 250 ML ASDIR PRN IV Epinephrine (EPINEPHrine/NS 4MG/250ML) 250 ML DIR PRN IV Hydrocodone Bitart/Acetaminophen (NORCO 5/325 TA BLET (C-II)) 1 TAB Q4H PRN PRN PO Hydrocodone Bitart/Acetaminophen (NORCO 5/325 TA BLET (C-II)) 2 TAB Q4H PRN PRN PO Lidocaine HCl/Dextrose (Lidocaine 0.4% in D5w So ln) 500 ML ASDIR PRN IV (CKD) Magnesium Sulfate (MAG SULFATE 2GM PREMIX) 50 ML ASDIR PRN IV Magnesium Sulfate/Dextrose (Magnesium Sulfate) 1 00 ML ASDIR PRN IV Nicardipine HCl (CARDENE I.V.) 25 MG ASDIR PRN IV (CKD) Sodium Chloride (SODIUM CHLORIDE 0.9%) 250 ML Ondansetron HCl (ZOFRAN) 4 MG Q8H PRN PRN IV Potassium Chloride (Potassium Chloride) 50 ML DIR PRN IV Dextrose/Water (DEXTROSE 50% IN WATER) 12.5 GM A SDIR PRN IV Dextrose/Water (DEXTROSE 50% IN WATER) 25 GM ASD IR PRN IV Nicardipine HCl (CARDENE I.V.) 25 MG ASDIR PRN I V (CKD) Sodium Chloride (SODIUM CHLORIDE 0.9%) 250 ML Sodium Bicarbonate (Sodium Bicarbonate) 50 MEQ A SDIR PRN IV Acetaminophen (TYLENOL) 650 MG Q4H PRN PRN PO Magnesium Hydroxide (MILK OF MAGNESIA) 30 ML ASD IR PRN PO Zolpidem Tartrate (AMBIEN (C-IV)) 5 MG BEDTIME P RN PRN PO Physical Exam General appearance: obese, awake, conversational , mental status normal Head/Eyes: atraumatic, normal eyelids/periorb. ENT: moist mucosal membranes, normal dentition, Maynard gas catheter Cardiovascular: normal heart sounds, reg ular rate rhythm, no murmur, AV pacing Respiratory: aerating well, symmetric expansion Abdomen: non-tender, soft Genitourinary: urinary catheter Extremities: moves all, no clubbing, no cyanosis Neuro/CUTTER WOODWIND REEDS: left hemiparesis, alert, oriented X 3 , normal speech Skin: dry, normal temperature Psychiatry: unable to evaluate Results Findings/Data: Laboratory Tests 12/10 12/10 12/10 1645 1056 0445 Chemistry Sodium (137 - 145 MMOL/L) 137 Potassium (3.5 - 5.1 MMOL/L) 3.8 Chloride (98 - 107 MMOL/L) 102 Carbon Dioxide (22 - 30 MMOL/L) 31 H Anion Gap (14 - 24 MMOL/L) 8 L BUN (9 - 20 MG/DL) 17 Creatinine (0.66 - 1.25 MG/DL) 1.10 Glomerular Filtr Rate > 60 Glucose (74 - 106 MG/DL) 136 H POC Glucose (60 - 99 MG/DL) 148 H 168 H Calcium (8.4 - 10.2 MG/DL) 9.0 Laboratory Tests 12/10 0445 Coagulation INR (0.86 - 1.14) 1.0 PT Patient/Control Mix (9.4 - 12.7 SECONDS) 11. 6 Laboratory Tests 12/10 0445 Hematology WBC (3.8 - 9.8 K/MM3) 10.1 H RBC (3.95 - 5.67 M/MM3) 3.16 L Hgb (12.4 - 16.7 G/DL) 9.5 L Hct (35.9 - 49.5 %) 29.8 L MCV (81.7 - 96.1 fL) 94 MCH (27.6 - 33.2 pg) 30.1 MCHC (32.9 - 35.5 %) 31.9 L RDW (12.1 - 15.2 %) 12.8 Plt Count (129 - 368 K/MM3) 145 MPV (7.4 - 10.4 fl) 11.1 H Neut % (Auto) (43 - 75 %) 63.7 Lymph % (Auto) (14 - 44 %) 24.6 [place] % (Auto) (4 - 13 %) 9.5 Eos % (Auto) (0 - 6 %) 1.6 Baso % (Auto) (0 - 2 %) 0.3 Neut # (Auto) (2.0 - 7.6 K/mm3) 6.43 Lymph # (Auto) (1.0 - 3.8 K/mm3) 2.48 [place] # (Auto) (0.1 - 0.8 K/mm3) 0.96 H Eos # (Auto) (0.0 - 0.2 K/mm3) 0.16 Baso # (Auto) (0.0 - 0.2 K/mm3) 0.03 Immature Gran % (0.0 - 2.0 %) 0.3 Nucleated RBC % (0 - 1.0 %) 0.0 Nucleated RBCs # (Man) (0.0 - 0.1 K/mm3) 0.00 Radiology data: Recent Impressions: RADIOLOGY - XR CHEST 1V 12/10 0610 Report Impression - Status: SIGNED Entered: 12/10/2021 0819 IMPRESSION: 1. Increased right basilar opacities, most likel y atelectasis with a small effusion. Impression By: [email or web address] - Atul Galvin MD CAT SCAN - CT HD/BR W W/O CONT 12/10 1000 Report Impression - Status: SIGNED Entered: 12/10/2021 1116 IMPRESSION: 1. 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 2. 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 Impression By: [email or web address] - Pal Osman MD Diagnosis, Assessment Plan Problem List/A P: 1. S/P AVR (aortic valve replacement) POD#4, post-op pain controlled 2. S/P CABG x 4 Clinically compensated 3. Acute left-sided weakness Suspect small acute pontine stroke per Dr Alicia has Pt continue to have dense l eft sided weakness, but slight movement of left hand today. CT head w and w/o con trast showed pituitary macroedenoma invading the jen without mass effect. 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 No MRI for next 4-[address] Aragon Pt will benefit from outpt neurosurgery evaluat ion once fully recovered from his surgery 5. DM2 (diabetes mellitus, type 2) Increase basal insulin lantus 40 unit tonight, serum glucoe well controlled Pt has increased urine output with incr eased thirst, suspect possible central DI 6. HTN (hypertension), benign BP elevated on cardene gtt. - continue amlodipine, and lisinopril. WOuld add hydralazine 25 tid for better controlled - hold coreg due to mild bradycardia 7. Thoracic aortic aneurysm, without rupture 8. Diabetes insipidus Excessive UOP wih increased thirst, suspect pos sible central DI related to macroedenoma c/s nephrology for further w/u Orders: Procedure Date/time Status UR OSMOLALITY RANDOM 12/11 0500 Active OSMOLALITY SERUM 12/11 0500 Active COMPREHENSIVE METABOLIC PANEL 12/11 0500 Active CBC W/AUTO DIFF 12/11 050 Active NEPHROLOGY CONSULT 12/10 4767 Active Consultants: cardiovascular surgery, hospitalist , neurology Free Text DxA P Notes Free text DxA P notes: POD#4, Pt's post-op pain controlled, but now has worsening left hemiparesis, suspect new small pontine in farct per Dr Cueto' ready of head CT. Chest tube to be removed today. - PT/OT and speech eval. Pt will likely need IP R - Continue asa, plavix, and statin - Increase lantus 40 units tonight - Continue amlodipine, start lisinopril 20 bid, add hydralazine - C/s nephrology for possible DI DVt/GI prophylaxis Will continue to follow Quality: Gen Med Crit Care VTE Prophylaxis VTE prophylaxis initiated: yes Current Medications Current medication review: I attest that the foregoing medication list in t medical record is true, accurate, and complete to the best of my knowled ge. Electronically Signed by Faustino Mercado MD on at 2352 RPT #:[id number] END OF REPORT 2021-12-10 23:28:00-00:00 [id number] [place] [id number] PATIENT NAME: GARCÍA MARRERO ADMIT DATE: 11/17 04/08 ACCOUNT NO: [id number] ROOM NO: Z.SI02 AGE: 66 REPORT TYPE: PROGRESS NOTE SEX: M ADMITTING PHYSICIAN:Wil Aragon MD ATTENDING PHYSICIAN:Wil Aragon MD DATE: 12/09/2021 The patient seen at bedside in the ICU. The nissa ent currently is stable. The patient is more weak on the left side. Case discussed with the patient's family at the bedside. CAT scan shows what appeared to be a suprasellar mass, most likely a pituitary tumor, what seems to be some compression on the right internal carotid artery on the right side. All d iscussed in detail with patient, he will be doing aggressive PT, OT. The patient remained stable from a hemodynamic cardiovascular surgery standpoint. Dictated By: Wil Aragon MD Date Dictated: 12/10/2021 23:28:38 Date Transcribed: 12/10/2021 23:42:23 DOUG/EDSON/DUNG Receipt ID: [id number] Authenticated and Edited by Wil Aragon MD On 01/16/22 10:06:37 AM at 1007 PATIENT NAME: GARCÍA MARRERO [id number] 2021-12-10 23:19:00-00:00 [id number] [address] PATIENT NAME: GARCÍA MARRERO ADMIT DATE: 11/17 04/08 ACCOUNT NO: [id number] ROOM NO: Z.SI02 AGE: 66 REPORT TYPE: PROGRESS NOTE SEX: M ADMITTING PHYSICIAN:Wil Aragon MD ATTENDING PHYSICIAN:Wil Aragon MD DATE: 12/10/2021 CARDIAC SURGERY SERVICE The patient is seen at bedside in ICU. The patie nt currently is stable. The patient has left-sided hemiplegia. Case discusse d with neurology. A repeat CT scan does not clearly show a stroke although we suspect he has a brainstem infarct probably related to the large suprasella r tumor and this was all discussed in detail with the patient's family at the bedside. The patient is from a cardiac standpoint feeling well. Dictated By: Wil Aragon MD Date Dictated: 12/10/2021 23:19:25 Date Transcribed: 12/10/2021 23:43:20 DOUG/PHYLLIS Receipt ID: [id number] Authenticated by Wil Aragon MD On 022 08:25:22 AM at 0825 PATIENT NAME: GARCÍA MARRERO [id number] 2021-12-10 19:47:00-00:00 [id number] [facility] [address] [place] [address] PATIENT NAME: GARCÍA MARRERO ADMIT DATE: 11/17 04/08 ACCOUNT NO: [id number] ROOM NO: Z.SI02 AGE: 66 REPORT TYPE: PROGRESS NOTE SEX: M ADMITTING PHYSICIAN:Wil Aragon MD ATTENDING PHYSICIAN:Wil Aragon MD DATE: 12/10/2021 NEUROLOGY PROGRESS NOTE SUBJECTIVE: There have been no new events since I last saw him. He seems improved according to the family, a little bit m ore interactive. On examination, he is indeed more awake, is more attentive to his left side than he was yesterday. When I called his name and art roached him from the left, he turns his head and makes eye contact with me. He is able to hospice consultant my fingers with a strength of at least 3+/5. There were no movements in the left lower extremity. Pertinent labs since I last saw him include a CT scan of the brain with and without contrast, which was done this morning. I reviewed the images. There continues to be no evolution of any area of ischemia, including the absence of any such areas in the mitchell. The pituitary macroa denoma is now more defined, seems to be completely invading the righ t cavernous sinus, with extension into an area anterior to the right mitchell, where it see ms to be contacting that area without any significant compression. ASSESSMENT AND RECOMMENDATIONS: In summary, this 66-year-old man with a past medical history of multiple medical problems, underwent on 12/06/2021 a coronary artery bypass surgery. A day later, while ambula ting, he was noted to be slightly drifting to the left. Two days ago, whe n he tried to get out of bed, he could not hold himself steady, seemed to disp lay significant left-sided weakness. This later on improved slightly later in the day. On his CT scan of the brain, no acute ischemic changes could be se en, but he had a suprasellar mass, possibly a macroadenoma, invading the righ t cavernous sinus. Two nights ago, his condition worsened to the point that he was unable to move his left side. Serial imaging did not reveal any evolutio n of any ischemic changes. A CT scan of the brain with and without contrast t evelyn reveals the suprasellar mass to be definitely extending into the right c avernous sinus with its lower tip located anteriorly in front of the right jen s where it contacts that structure, but not seemed to produce any signifi cant compression or edema in that region. The exact relationship between that finding and his left-sided weakness is not clear. I continued to lean more towards the fact that he must have sustained a tiny stroke in that are a, possibly related to the presence of that mass. 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 I am hoping that we will be able to take his leads soon, so he can b e imaged with an MRI. He will definitely need debulking of this macroadenoma at some point in the near future. PATIENT NAME: GARCÍA MARRERO ACCOUNT #: [id number] I discussed this case at length with Dr. Aragon . I do not see the necessity of obtaining a neurosurgical consultation at thi s point since they will be unable to do anything before an MRI is obtained. I also suspect that he will need to be transferred to the Medical [facility] for this type of complex surgery. Dictated By: Madalyn Cueto MD Date Dictated: 12/10/2021 19:47:58 Date Transcribed: 12/10/2021 20:40:57 /[facility] Receipt ID: [id number] Authenticated and Edited by Madalyn Cueto MD O n 01/15/22 9:03:54 PM Electronically Signed by Madalyn Cueto MD on at 0905 PATIENT NAME: GARCÍA MARRERO ACCOUNT #: [id number] 2021-12-10 09:50:00-00:00 [facility] ([facility]) Cardiology Progress Note REPORT#:[id number] REPORT STATUS: Signed DATE:12/10/21 TIME: 949 PATIENT: GARCÍA MARRERO UNIT #: [id number] ROOM/BED: [address] : [address] AGE: 66 SEX: M ATTEND: Ady Aragon MD ADM AUTHOR: Aidee Armstrong MD * ALL edits or amendments must be made on the [employer]/computer document * Subjective Chief complaint: L side weakness S/P OR HPI: 66year old male with h/o CAD, , now s/p ACB, A VR. No c/o chest pain, palpitations, dyspnea. Patient reports: No: chest pain, palpitations, shortness of breat h. Objective General VS/I O: 24 hour I O ending at 0700: 12/10 0700 12/09 1900 Intake Total 1376.00 1220.00 Output Total 1370 5400 Balance 6.00 -4180.00 Intake, IV 626.00 620.00 Intake, Oral 750 600 Output, Urine 1370 5400 Vital Signs: Date Time Temp Pulse Resp B/P B/P Pulse O2 O2 F low FiO2 Mean Ox Delivery Rate 09/25 0330 75 11 100 12/10 0300 75 11 97 100 12/10 0230 75 11 99 12/10 0200 75 11 100 12/10 0130 75 12 100 12/10 0115 75 11 99 12/10 0100 75 11 99 12/10 0045 75 12 96 12/10 0030 44 19 94 12/10 0015 75 11 96 12/10 0000 75 11 96 12/09 2345 75 26 95 12/09 2330 66 11 92 12/09 2315 75 12 92 12/09 2300 54 21 94 12/09 2300 97.5 94 Nasal 4 cannula 12/09 2245 75 14 95 12/09 2230 75 12 95 12/09 2215 75 24 93 12/09 2200 75 16 92 12/09 2145 75 13 93 12/09 2115 75 11 91 12/09 2100 75 16 143/63 91 12/09 2030 75 10 99 12/09 2014 75 12 98 12/09 2008 75 22 147/64 92 95 12/10 1999 75 12 12/09 1947 100 Nasal 4 36 cannula 12/09 1930 75 11 12/09 1900 5 12/09 1900 97.2 94 Nasal 5 cannula 12/09 1900 75 11 97 12/09 1845 75 11 95 12/09 1830 75 19 94 12/09 1815 75 11 97 12/09 1800 96.5 12/09 1800 75 12 95 12/09 1745 75 27 81 12/09 1730 75 16 90 12/09 1715 75 11 91 12/09 1700 75 14 92 12/09 1645 75 9 94 12/09 1630 75 9 95 12/09 1615 75 10 95 12/09 1600 75 10 94 12/09 1545 75 9 95 12/09 1530 75 17 91 12/09 1515 75 23 92 12/09 1500 75 13 95 12/09 1445 75 10 95 12/09 1430 75 9 96 12/09 1415 75 10 92 12/09 1400 75 20 92 12/09 1345 75 12 91 12/09 1330 75 17 95 12/09 1315 75 9 95 12/09 1300 75 12 95 12/09 1245 75 15 95 12/09 1230 75 11 94 12/09 1215 75 29 95 12/09 1200 75 19 90 12/09 1145 75 11 95 12/09 1130 75 17 94 12/09 1115 75 11 94 12/09 1100 75 21 93 12/09 1045 75 11 98 12/09 1030 75 11 97 12/09 1015 75 12/09 1000 75 PATIENT WEIGHT: Weight (lb): 261 Weight (oz): 8.76 Weight (kg): 118.388 Medications: Active Meds + DC'd Last 24 Hrs Iopamidol (ISOVUE-300) 0 .STK-MED ONE .ROUTE (DC ) Amlodipine Besylate (NORVASC TAB) 5 MG BID PO Benzocaine/Menthol (Cepacol Sore Throat Lozenge) 1 TAB Q2H PRN PRN MM ( CKD) Docusate Sodium (COLACE) 100 MG BID PO Insulin Glargine (Lantus/Semglee) 40 UNITS BEDTI ME SUBQ Insulin Human Lispro (HumaLOG) MEDIUM DOSE SLIDI NG SCALE AC HS SUBQ Lisinopril (PRINIVIL) 20 MG BID PO Nicardipine HCl (CARDENE I.V.) 50 MG ASDIR IV (C KD) Sodium Chloride (SODIUM CHLORIDE 0.9%) 230 ML Amlodipine Besylate (NORVASC TAB) 5 MG DAILY PO (DC) Aspirin (ASPIRIN EC) 81 MG BEDTIME PO Clopidogrel Bisulfate (PLAVIX) 75 MG DAILY PO Famotidine (PEPCID) 20 MG BID PO [id number] Ethyl Esters (LOVAZA) 1 GM DAILY PO (CKD) Atorvastatin Calcium (LIPITOR) 80 MG BEDTIME PO Fenofibrate (TRICOR) 108 MG BEDTIME PO Mupirocin (BACTROBAN NASAL - ADULT ICU) 1 APPLIC BID NASAL Levothyroxine Sodium (Synthroid) 125 MCG DAILY@0 630 PO Meperidine HCl (DEMEROL (C-II)) 25 MG Q4H PRN CO N IM Meperidine HCl (DEMEROL (C-II)) 50 MG Q4H PRN CO N IM Calcium Gluconate/Sodium Chloride (Calcium Gluco scott 1 GM/NS 100 mL) 100 ML ASDIR PRN IV Dobutamine HCl/Dextrose (DOBUTamine HCL IN DEXTR OSE) 250 ML ASDIR PRN IV Epinephrine (EPINEPHrine/NS 4MG/250ML) 250 ML DIR PRN IV Hydrocodone Bitart/Acetaminophen (NORCO 5/325 TA BLET (C-II)) 1 TAB Q4H PRN PRN PO Hydrocodone Bitart/Acetaminophen (NORCO 5/325 TA BLET (C-II)) 2 TAB Q4H PRN PRN PO Lidocaine HCl/Dextrose (Lidocaine 0.4% in D5w So ln) 500 ML ASDIR PRN IV (CKD) Magnesium Sulfate (MAG SULFATE 2GM PREMIX) 50 ML ASDIR PRN IV Magnesium Sulfate/Dextrose (Magnesium Sulfate) 1 00 ML ASDIR PRN IV Nicardipine HCl (CARDENE I.V.) 25 MG ASDIR PRN IV (CKD) Sodium Chloride (SODIUM CHLORIDE 0.9%) 250 ML Ondansetron HCl (ZOFRAN) 4 MG Q8H PRN PRN IV Potassium Chloride (Potassium Chloride) 50 ML DIR PRN IV Dextrose/Water (DEXTROSE 50% IN WATER) 12.5 GM A SDIR PRN IV Dextrose/Water (DEXTROSE 50% IN WATER) 25 GM ASD IR PRN IV Nicardipine HCl (CARDENE I.V.) 25 MG ASDIR PRN I V (CKD) Sodium Chloride (SODIUM CHLORIDE 0.9%) 250 ML Sodium Bicarbonate (Sodium Bicarbonate) 50 MEQ A SDIR PRN IV Acetaminophen (TYLENOL) 650 MG Q4H PRN PRN PO Magnesium Hydroxide (MILK OF MAGNESIA) 30 ML ASD IR PRN PO Zolpidem Tartrate (AMBIEN (C-IV)) 5 MG BEDTIME P RN PRN PO Status post: s/p ACB X 4 Aortic Stenosis - severe s/p AVR with #21 bio Mirza. Physical Exam General appearance: alert, awake, oriented Head/Eyes: atraumatic, normocephalic, PERRLA ENT: moist mucosal membranes Neck: no bruit/NL carotids, no JVD, no masses or swelling Cardiovascular: CV assessment: regular rate and rhythm, BP puls es = bilaterally Murmur assessment: AVR, I/ JOSEMANUEL Respiratory: on oxygen, clear to auscultation, n o distress Abdomen: soft, non-tender, no mass/organomegaly, no pulsatile mass Upper extremity: UE assessment: no edema, 2+ peripheral pulses Lower extremity: LE assessment: no edema, 2+ peripheral pulses Musculoskeletal: full range of motion (can't mov e L Leg) Neuro/CUTTER WOODWIND REEDS: left hemiparesis, alert, oriented X 3 Skin: dry, intact Psychiatry: normal affect, normal judgment/insig ht, normal mood, no hallucinations Results Findings/Data: Laboratory Tests 12/10 2109 1556 1153 1146 Chemistry Sodium (137 - 145 MMOL/L) 137 Potassium (3.5 - 5.1 MMOL/L) 3.8 Chloride (98 - 107 MMOL/L) 102 Carbon Dioxide (22 - 30 MMOL/L) 31 H Anion Gap (14 - 24 MMOL/L) 8 L BUN (9 - 20 MG/DL) 17 Creatinine (0.66 - 1.25 MG/DL) 1.10 Glomerular Filtr Rate > 60 Glucose (74 - 106 MG/DL) 136 H POC Glucose (60 - 99 MG/DL) 141 H 125 H 215 H 2 86 H Calcium (8.4 - 10.2 MG/DL) 9.0 Laboratory Tests 12/10 444 Coagulation INR (0.86 - 1.14) 1.0 PT Patient/Control Mix (9.4 - 12.7 SECONDS) 11. 6 Laboratory Tests 12/10 444 Hematology WBC (3.8 - 9.8 K/MM3) 10.1 H RBC (3.95 - 5.67 M/MM3) 3.16 L Hgb (12.4 - 16.7 G/DL) 9.5 L Hct (35.9 - 49.5 %) 29.8 L MCV (81.7 - 96.1 fL) 94 MCH (27.6 - 33.2 pg) 30.1 MCHC (32.9 - 35.5 %) 31.9 L RDW (12.1 - 15.2 %) 12.8 Plt Count (129 - 368 K/MM3) 145 MPV (7.4 - 10.4 fl) 11.1 H Neut % (Auto) (43 - 75 %) 63.7 Lymph % (Auto) (14 - 44 %) 24.6 [place] % (Auto) (4 - 13 %) 9.5 Eos % (Auto) (0 - 6 %) 1.6 Baso % (Auto) (0 - 2 %) 0.3 Neut # (Auto) (2.0 - 7.6 K/mm3) 6.43 Lymph # (Auto) (1.0 - 3.8 K/mm3) 2.48 [place] # (Auto) (0.1 - 0.8 K/mm3) 0.96 H Eos # (Auto) (0.0 - 0.2 K/mm3) 0.16 Baso # (Auto) (0.0 - 0.2 K/mm3) 0.03 Immature Gran % (0.0 - 2.0 %) 0.3 Nucleated RBC % (0 - 1.0 %) 0.0 Nucleated RBCs # (Man) (0.0 - 0.1 K/mm3) 0.00 Radiology data: Recent Impressions: RADIOLOGY - XR CHEST 1V 12/09 1435 Report Impression - Status: SIGNED Entered: 12/09/2021 1455 IMPRESSION: Stable postoperative chest with impr anna mild congestion along with mild bibasilar subsegmental atelectas is and small effusions. No pneumothorax. Impression By: [email or web address] - Smith Rich MD CAT SCAN - CT HEAD/BRAIN W/O CONT 12/09 1730 Report Impression - Status: SIGNED Entered: 12/09/2021 1805 IMPRESSION: Subtle white matter hypodensity of the superior right frontal gyrus, possible ischemia of indeterminate age. Correlat e with MRI. Stable appearance of sellar/suprasellar mass wit h probable cavernous sinus involvement on the right. LOCATION: H81 Impression By: [email or web address] - Brittany Frost DO RADIOLOGY - XR CHEST 1V 12/10 0610 Report Impression - Status: SIGNED Entered: 12/10/2021 0819 IMPRESSION: 1. Increased right basilar opacities, most likel y atelectasis with a small effusion. Impression By: [email or web address] - Atul Galvin MD Diagnosis, Assessment Plan Hospital course to date: IMP: -CAD s/p ACB X 4 -Aortic Stenosis - severe s/p AVR with #21 bio Mirza. -DM -HTN -HLP -Mild mR -TAA -L hemiparesis post-op, brain tumor noted PLAN: Continue current medical rx. Neuro following Ambulate when possible at 1244 RPT #:[id number] END OF REPORT 2021-12-10 05:19:00-00:00 [id number] [facility] [address] [place] [address] PATIENT NAME: GARCÍA MARRERO ADMIT DATE: 11/17 04/08 ACCOUNT NO: [id number] ROOM NO: Z.SI02 AGE: 66 REPORT TYPE: ELECTROCARDIOGRAM SEX: M ADMITTING PHYSICIAN:Wil Aragon MD ATTENDING PHYSICIAN:Wil Aragon MD Order: [id number] Test Reason : CAD Test Date/Time Stamp: SatDec 10 2021 05:19:18 Blood Pressure : / mmHG Vent. Rate : 076 BPM Atrial Rate : 076 BPM P-R Int : 120 ms QRS Dur : 102 ms QT Int : 430 ms P-R-T Axes : 083 -73 -25 degree s QTc Int : 483 ms AV sequential or dual chamber electronic pacemak er When compared with ECG of 09-DEC-2021 05:55, No significant change was found Confirmed by SHAHID JENSEN ([id number]) on 12/10/2021 7:40:10 AM Referred By: Wil Aragon Confirmed by:SHAHID LUNDBERG at 0740 PATIENT NAME: GARCÍA MARRERO [id number] 2021-12-10 05:19:00-00:00 [id number] [facility] [address] [place] [address] PATIENT NAME: GARCÍA MARRERO ADMIT DATE: 11/17 04/08 ACCOUNT NO: [id number] ROOM NO: Z.SI02 AGE: 66 REPORT TYPE: ELECTROCARDIOGRAM SEX: M ADMITTING PHYSICIAN:Wil Aragon MD ATTENDING PHYSICIAN:Wil Aragon MD Order: [id number] Test Reason : CAD Test Date/Time Stamp: SatDec 10 2021 05:19:18 Blood Pressure : / mmHG Vent. Rate : 076 BPM Atrial Rate : 076 BPM P-R Int : 120 ms QRS Dur : 102 ms QT Int : 430 ms P-R-T Axes : 083 -73 -25 degree s QTc Int : 483 ms AV sequential or dual chamber electronic pacemak er When compared with ECG of 09-DEC-2021 05:55, No significant change was found Confirmed by SHAHID JENSEN ([id number]) on 12/11/2021 5:37:53 PM Referred By: Wil Aragon Confirmed by:SHAHID LUNDBERG at 1737 PATIENT NAME: GARCÍA MARRERO [id number] 2021-12-09 19:01:00-00:00 [id number] [place] [address] PATIENT NAME: GARCÍA MARRERO ADMIT DATE: 11/17 04/08 ACCOUNT NO: [id number] ROOM NO: Z.SI02 AGE: 66 REPORT TYPE: PROGRESS NOTE SEX: M ADMITTING PHYSICIAN:Wil Aragon MD ATTENDING PHYSICIAN:Wil Aragon MD DATE: 12/09/2021 NEUROLOGY PROGRESS NOTE SUBJECTIVE: He has gradually worsened overnight, stopped moving his left leg, and subsequently has had mor e difficulties moving his left arm also. I obtained a CT scan of the brain in th e early hours of the morning and it was unrevealing for any new acute changes. I obtained CTA of the head and the neck and it revealed no hemodynamically significant stenosis of the carotid arteries or of the intracranial anterior middle or posterior ce rebral arteries. He remained unchanged throughout the day until late in the a fternoon when I saw him. At that time, I was concerned t hat his examination revealed him to be showing some left-sided neglect, possible right eye deviation. This concerned me that we may be dealing with a more hemis pheric stroke. I sent him for a stat CT scan of the brain and reviewed the images before this dictat ion. The images continued to reveal no acute ischemic changes. They continue to reveal the presence of the suprasellar mass as described before. OBJECTIVE: On examination, he had some left-side d neglect when I walked into the room; although, ultimately, when I called hi m from the left side, he was able to turn his head toward s me, but not his eyes. He was able to identify the color of my shirt. He does n ot have much volitional movements in the left upper and left lower extremities. There is no facial a symmetry. He maintains normal strength on the right. Pertinent labs since I last saw him include all the above-mentioned studies. ASSESSMENT AND RECOMMENDATIONS: In summary, this 66-year-old man with a past medical history of multiple medical problems, underwent on 12/06/2021 a coronary artery bypass surgery. A day later, while ambula ting, he was noted to be slightly drifting to the left. Yesterday, when bry valles tried to get out of bed, he could not hold himself steady, seemed to display significant left-sided weakness. This later on improved slightly later in the day. 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 Last night, his condition worsened again to the point that he now has no volitional movements in the l eft upper and left lower extremities. We have kept imaging him with no ne w findings on his CT. When I saw him this afternoon, he had some left-sided n eglect and I repeated a CT on the suspicion that he may be having an MCA event . We still do not see any ischemic changes in the hemispheres or in the br ainstem. I still doubt that this presentation is in any way related to his s uprasellar mass. However, I will obtain a CT scan of the brain with and with out contrast to hopefully PATIENT NAME: GARCÍA MARRERO [id number] delineate the extent of the mass further and see if it may be descending towards the midbrain and the brainstem. He remains on as pirin and Plavix. Dictated By: Madalyn Cueto MD Date Dictated: 12/09/2021 19:01:54 Date Transcribed: 12/09/2021 20:01:44 /[facility] Receipt ID: [id number] Authenticated by Madalny Cueto MD On 09:03:44 PM Electronically Signed by Madalyn Cueto MD on at 0903 PATIENT NAME: GARCÍA MARRERO ACCOUNT #: [id number] 2021-12-09 16:56:00-00:00 [facility] ([facility] Hospitalist Progress Note REPORT#:[id number] REPORT STATUS: Signed DATE:12/09/21 TIME: 1655 PATIENT: GARCÍA MARRERO UNIT #: [id number] ROOM/BED: ZSI02-A : 55 AGE: 66 SEX: M ATTEND: Ady Aragon MD ADM AUTHOR: Faustino Mercado MD * ALL edits or amendments must be made on the [employer]/computer document * Subjective Chief complaint: s/p ACB and AVR HPI: POD#3 ACB and AVR Pt c/o worsening left sided weakness, unable to move his left leg and left shoulder. Pt can lift his left forearm against g ravity but not against resistance. Repeat CT head today does no t showed any acute or subacute infarct beside stable sellar-suprasellar mass that may encase left MCA . However, CTA head/neck revealed no hemodynamic sign ificant stenosis of KIESHA/MCA/COMPARISON SHOPPER. Pt's remains mildly hypertensive, still needing cardene gtt. Review of Systems Constitutional: Reports: fatigue, generalized weakness, malaise. Denies: chills, fever, lethargy, recent wt loss, other. Respiratory: Denies: PHELPS (dyspnea on exertion), hemoptysis, n on productive cough, parox nocturnal dyspnea, pleurisy, pleuritic pain, pneumonia, productive cough (sputum ), SOB, wheezing, other. Cardiovascular: Denies: chest pain, PHELPS (dyspnea on exer tion), edema, orthopnea, palpitations, parox nocturnal dyspnea, other. GI: Denies: abdominal pain, anorexia, constipation, diarrhea, dysphagia, GERD, hematemesis, hematochezia, h iatal hernia, melena, nausea, rectal pain, vomiting, other. Neuro: Reports: focal weakness, weakness (weakness of l eft arm and leg). Denies: numbness, slurred speech. All systems rev neg: except as marked Objective General VS/I O: Vital Signs: Date Time Temp Pulse Resp B/P B/P Pulse O2 O2 F low FiO2 Mean Ox Delivery Rate 12/09 1030 75 11 97 12/09 1015 75 12/09 1000 75 09/24 0946 93 Nasal 5 40 cannula 09/24 0945 75 14 09/24 0930 75 10 146/72 102 96 09/24 0915 75 11 144/76 103 94 09/24 0900 75 10 133/67 93 09/24 0845 75 10 129/61 89 09/24 0830 75 23 140/70 99 09/24 0815 75 16 119/80 87 09/24 0800 97.6 09/24 0800 Nasal 5 cannula 09/24 0800 75 16 125/59 85 93 09/24 0745 75 11 120/62 83 92 09/24 0730 75 11 129/66 90 93 09/24 0715 75 11 125/61 88 94 09/24 0700 75 11 124/62 85 93 09/24 0645 75 11 132/62 89 93 09/24 0630 75 11 92 09/24 0615 75 15 120/59 85 94 09/24 0600 75 11 129/68 89 93 09/24 0545 75 22 123/71 91 90 09/24 0530 67 23 122/72 92 09/24 0515 75 13 122/57 82 09/24 0500 75 17 135/65 93 95 09/24 0445 75 12 127/66 92 94 09/24 0430 75 12 131/65 92 95 09/24 0415 57 16 133/66 93 92 09/24 0400 75 12 130/60 86 97 09/24 0345 75 12 135/68 96 97 09/24 0330 75 13 132/63 90 94 09/24 0315 75 13 130/61 88 94 09/24 0300 75 15 137/66 92 93 09/24 0245 75 15 134/69 93 93 09/24 0230 63 22 148/89 109 91 09/24 0215 13 136/66 95 96 09/24 0200 75 12 137/65 93 97 09/24 0145 75 13 142/71 100 96 09/24 0130 75 13 134/68 94 09/24 0118 90 Nasal 6 44 cannula 09/24 0115 75 13 139/71 99 09/24 0100 75 14 136/72 97 09/24 0045 75 15 134/70 96 09/24 0030 75 13 125/63 85 95 09/24 0015 75 12 131/70 91 96 09/24 0000 75 12 121/71 92 96 09/23 2345 75 12 130/67 93 97 09/23 2330 75 12 124/64 87 97 12/08 2315 75 12 126/67 86 96 12/08 2300 75 13 137/69 98 96 12/08 2245 75 13 141/66 96 96 12/08 2230 62 26 145/70 95 92 12/08 2215 48 26 155/66 95 90 12/08 2200 19 108 84 12/08 2145 75 12 162/74 106 98 12/08 2130 75 24 169/86 114 90 12/08 2100 75 12 168/77 110 12/08 2045 75 20 151/64 97 89 12/08 2041 75 13 157/73 91 12/08 2030 75 11 95 12/08 2014 75 17 92 12/09 1999 75 14 91 12/08 1945 75 16 12/08 1943 75 12 145/69 99 12/08 1930 75 16 12/08 1915 51 20 12/08 1912 88 Nasal 5 40 cannula 12/08 1900 75 25 92 12/08 1830 65 18 12/08 1815 70 17 12/08 1800 72 24 92 12/08 1745 74 92 12/08 1730 68 17 93 24 hour I O ending at 0700: 12/09 0700 12/08 1900 Intake Total 1900.00 3045.00 Output Total 2600 2310 Balance -700.00 735.00 Intake, IV 750.00 945.00 Intake, Oral 1150 2100 Output, Chest 0 110 Tube Drainage Output, Urine 2600 2200 PATIENT WEIGHT: Weight (lb): 261 Weight (oz): 8.76 Weight (kg): 118.388 Medications: Active Meds + DC'd Last 24 Hrs Iopamidol (ISOVUE-370) 0 .STK-MED ONE IV (DC) Benzocaine/Menthol (Cepacol Sore Throat Lozenge) 1 TAB Q2H PRN PRN MM ( CKD) Docusate Sodium (COLACE) 100 MG BID PO Insulin Glargine (Lantus/Semglee) 40 UNITS BEDTI ME SUBQ Insulin Human Lispro (HumaLOG) MEDIUM DOSE SLIDI NG SCALE AC HS SUBQ Lisinopril (PRINIVIL) 20 MG DAILY PO (DC) Lisinopril (PRINIVIL) 20 MG BID PO Nicardipine HCl (CARDENE I.V.) 50 MG ASDIR IV (C KD) Sodium Chloride (SODIUM CHLORIDE 0.9%) 230 ML Amlodipine Besylate (NORVASC TAB) 5 MG DAILY PO Aspirin (ASPIRIN EC) 81 MG BEDTIME PO Insulin Glargine (Lantus/Semglee) 20 UNITS BEDTI ME SUBQ (DC) Insulin Human Lispro (HumaLOG) LOW DOSE SLIDING SCALE AC HS SUBQ (DC) Clopidogrel Bisulfate (PLAVIX) 75 MG DAILY PO Famotidine (PEPCID) 20 MG BID PO Vodrm-1-Cfyu Ethyl Esters (LOVAZA) 1 GM DAILY PO (CKD) Atorvastatin Calcium (LIPITOR) 80 MG BEDTIME PO Fenofibrate (TRICOR) 108 MG BEDTIME PO Mupirocin (BACTROBAN NASAL - ADULT ICU) 1 APPLIC BID NASAL Levothyroxine Sodium (Synthroid) 125 MCG DAILY@0 630 PO Meperidine HCl (DEMEROL (C-II)) 25 MG Q4H PRN CO N IM Meperidine HCl (DEMEROL (C-II)) 50 MG Q4H PRN CO N IM Calcium Gluconate/Sodium Chloride (Calcium Gluco scott 1 GM/NS 100 mL) 100 ML ASDIR PRN IV Dobutamine HCl/Dextrose (DOBUTamine HCL IN DEXTR OSE) 250 ML ASDIR PRN IV Epinephrine (EPINEPHrine/NS 4MG/250ML) 250 ML DIR PRN IV Hydrocodone Bitart/Acetaminophen (NORCO 5/325 TA BLET (C-II)) 1 TAB Q4H PRN PRN PO Hydrocodone Bitart/Acetaminophen (NORCO 5/325 TA BLET (C-II)) 2 TAB Q4H PRN PRN PO Lidocaine HCl/Dextrose (Lidocaine 0.4% in D5w So ln) 500 ML ASDIR PRN IV (CKD) Magnesium Sulfate (MAG SULFATE 2GM PREMIX) 50 ML ASDIR PRN IV Magnesium Sulfate/Dextrose (Magnesium Sulfate) 1 00 ML ASDIR PRN IV Nicardipine HCl (CARDENE I.V.) 25 MG ASDIR PRN I V (CKD) Sodium Chloride (SODIUM CHLORIDE 0.9%) 250 ML Ondansetron HCl (ZOFRAN) 4 MG Q8H PRN PRN IV Potassium Chloride (Potassium Chloride) 50 ML DIR PRN IV Dextrose/Water (DEXTROSE 50% IN WATER) 12.5 GM A SDIR PRN IV Dextrose/Water (DEXTROSE 50% IN WATER) 25 GM ASD IR PRN IV Nicardipine HCl (CARDENE I.V.) 25 MG ASDIR PRN I V (CKD) Sodium Chloride (SODIUM CHLORIDE 0.9%) 250 ML Sodium Bicarbonate (Sodium Bicarbonate) 50 MEQ A SDIR PRN IV Acetaminophen (TYLENOL) 650 MG Q4H PRN PRN PO Magnesium Hydroxide (MILK OF MAGNESIA) 30 ML ASD IR PRN PO Zolpidem Tartrate (AMBIEN (C-IV)) 5 MG BEDTIME P RN PRN PO Physical Exam General appearance: obese, alert, awake, convers ational, mental status normal Head/Eyes: atraumatic, normal eyelids/periorb. ENT: moist mucosal membranes, normal dentition, Maynard gas catheter Cardiovascular: normal heart sounds, reg ular rate rhythm, no murmur, AV pacing Respiratory: chest tube (2 chest tubes), aerating well, clear to auscultation, symmetric expansion, no distress, Vent s ettings RR- 18 PEEP- 5 Peak Pressure - 16 Tidal volume - 524 FiO2- 60 Abdomen: non-tender, soft Genitourinary: urinary catheter Extremities: moves all, no clubbing, no cyanosis Neuro/CUTTER WOODWIND REEDS: left hemiparesis, alert, oriented X 3 , normal speech Skin: dry, normal temperature Psychiatry: unable to evaluate Results Findings/Data: Laboratory Tests 12/09 12/09 12/09 12/09 12/09 1556 1153 1146 0637 0600 Chemistry Sodium (137 - 145 MMOL/L) 135 L Potassium (3.5 - 5.1 MMOL/L) 4.0 Chloride (98 - 107 MMOL/L) 102 Carbon Dioxide (22 - 30 MMOL/L) 28 Anion Gap (14 - 24 MMOL/L) 9 L BUN (9 - 20 MG/DL) 18 Creatinine (0.66 - 1.25 MG/DL) 1.20 Glomerular Filtr Rate > 60 Glucose (74 - 106 MG/DL) 168 H POC Glucose (60 - 99 MG/DL) 125 H 215 H 286 H 1 63 H Calcium (8.4 - 10.2 MG/DL) 8.2 L 12/08 12/08 2048 1731 Chemistry POC Glucose (60 - 99 MG/DL) 161 H 168 H Laboratory Tests 12/09 0600 Coagulation INR (0.86 - 1.14) 1.0 PT Patient/Control Mix (9.4 - 12.7 SECONDS) 11. 7 Laboratory Tests 12/09 0600 Hematology WBC (3.8 - 9.8 K/MM3) 12.0 H RBC (3.95 - 5.67 M/MM3) 2.94 L Hgb (12.4 - 16.7 G/DL) 8.9 L Hct (35.9 - 49.5 %) 27.7 L MCV (81.7 - 96.1 fL) 94 MCH (27.6 - 33.2 pg) 30.3 MCHC (32.9 - 35.5 %) 32.1 L RDW (12.1 - 15.2 %) 12.9 Plt Count (129 - 368 K/MM3) 98 L MPV (7.4 - 10.4 fl) 10.8 H Neut % (Auto) (43 - 75 %) 68.4 Lymph % (Auto) (14 - 44 %) 20.4 [place] % (Auto) (4 - 13 %) 10.1 Eos % (Auto) (0 - 6 %) 0.5 Baso % (Auto) (0 - 2 %) 0.2 Neut # (Auto) (2.0 - 7.6 K/mm3) 8.21 H Lymph # (Auto) (1.0 - 3.8 K/mm3) 2.46 [place] # (Auto) (0.1 - 0.8 K/mm3) 1.22 H Eos # (Auto) (0.0 - 0.2 K/mm3) 0.06 Baso # (Auto) (0.0 - 0.2 K/mm3) 0.03 Immature Gran % (0.0 - 2.0 %) 0.4 Nucleated RBC % (0 - 1.0 %) 0.0 Nucleated RBCs # (Man) (0.0 - 0.1 K/mm3) 0.00 Radiology data: Recent Impressions: CAT SCAN - CT HEAD/BRAIN W/O CONT 12/09 1823 Addendum Impression - Status: SIGNED Entered : 12/09/2021 1700 IMPRESSION: Sellar/suprasellar mass with likely involvement of the RIGHT cavernous sinus and potentially encasement of the left MCA could relate to a pituitary macroadenoma, meningioma or potentiall y a craniopharyngioma. If not previously known, recommend follow-up wi th a nonemergent MRI brain without and with contrast utilizing a pitu itary sella protocol. Impression By: [email or web address] - Grant Clement MD Report Impression - Status: SIGNED Entered: 12/08/2021 1946 IMPRESSION: Sellar/suprasellar mass with likely involvement of the left cavernous sinus and potentially encasement of the left MCA could relate to a pituitary macroadenoma, meningioma or potentiall y a craniopharyngioma. If not previously known, recommend follow-up wi th a nonemergent MRI brain without and with contrast utilizing a pitu itary sella protocol. Impression By: [email or web address] Alyssa Preciado MD CAT SCAN - CT ANGIO NECK W WO CONT 12/09 0500 Report Impression - Status: SIGNED Entered: 12/09/2021 0620 IMPRESSION: 1. No hemodynamically significant stenoses of th e cervical internal carotid or vertebral arteries. 2. No hemodynamically significant stenoses of th e anterior, middle, or posterior cerebral arteries. 3. No aneurysm, occlusion, or dissection. Impression By: Raudel Morton MD CAT SCAN - CT ANGIO HEAD 12/09 0500 Report Impression - Status: SIGNED Entered: 12/09/2021 0620 IMPRESSION: 1. No hemodynamically significant stenoses of th e cervical internal carotid or vertebral arteries. 2. No hemodynamically significant stenoses of th e anterior, middle, or posterior cerebral arteries. 3. No aneurysm, occlusion, or dissection. Impression By: Raudel Morton MD CAT SCAN - CT HEAD/BRAIN W/O CONT 12/09 0500 Report Impression - Status: SIGNED Entered: 12/09/2021 0550 IMPRESSION: Stable suprasellar mass with peripheral calcific ations otherwise no acute findings and no changes from one day prior . Impression By: Mark Lugo M.D. RADIOLOGY - XR CHEST 1V 12/09 0601 Report Impression - Status: SIGNED Entered: 12/09/2021 1224 IMPRESSION: 1. Stable chest. Impression By: [email or web address] - Atul Galvin MD RADIOLOGY - XR CHEST 1V 12/09 1435 Report Impression - Status: SIGNED Entered: 12/09/2021 1455 IMPRESSION: Stable postoperative chest with impr anna mild congestion along with mild bibasilar subsegmental atelectas is and small effusions. No pneumothorax. Impression By: [email or web address] - Smith Rich MD Diagnosis, Assessment Plan Problem List/A P: 1. S/P AVR (aortic valve replacement) POD#2, post-op pain controlled 2. S/P CABG x 4 Clinically compensated 3. Acute left-sided weakness Suspect small acute pontine stroke per Dr Alicia has Pt continue to have worsening left sided weakne ss 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 No MRI for next 4-[address] Aragon Pt will benefit from outpt neurosurgery evaluat ion once fully recovered form his SVR and CABG 5. DM2 (diabetes mellitus, type 2) Increase basal insulin lantus 40 unit tonight 6. HTN (hypertension), benign BP elevated on cardene gtt. - continue amlodipine, restart home lisinopril - hold coreg due to mild bradycardia 7. 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 Chest tube to be removed today. - PT/OT and speech eval. Pt will likely need IP R - Continue asa, plavix, and statin - Increase lantus 40 units tonight - Continue amlodipine, start lisinopril 20 bid DVt/GI prophylaxis Will continue to follow Quality: Gen Med Crit Care VTE Prophylaxis VTE prophylaxis initiated: yes Current Medications Current medication review: I attest that the foregoing medication list in [facility] medical record is true, accurate, and complete to the best of my knowled ge. Electronically Signed by Faustino Mercado MD on at 1723 RPT #:[id number] END OF REPORT 2021-12-09 06:14:00-00:00 [facility] ([facility] Cardiology Progress Note REPORT#:[id number] REPORT STATUS: Signed DATE:12/09/21 TIME: 06 PATIENT: GARCÍA MARRERO UNIT #: [id number] ROOM/BED: Z.SI02-A : 55 AGE: 66 SEX: M ATTEND: Ady Aragon MD ADM AUTHOR: Shahid Jensen MD Card iology * ALL edits or amendments must be made on the [employer]/computer document * Subjective Chief complaint: L side weakness S/P OR HPI: 66year old male with h/o CAD, , now s/p ACB, A VR. No c/o chest pain, palpitations, dyspnea. Patient reports: No: chest pain, headache, palpitations, shortnes s of breath, swelling. Nursing reports: No: complaints. Comments: Concerned about L weakness post OP Objective General VS/I O: 24 hour I O ending at 0700: 12/09 0700 12/08 1900 Intake Total 1900.00 3045.00 Output Total 2600 2310 Balance -700.00 735.00 Intake, IV 750.00 945.00 Intake, Oral 1150 2100 Output, Chest 0 110 Tube Drainage Output, Urine 2600 2200 Vital Signs: Date Time Temp Pulse Resp B/P B/P Pulse O2 O2 F low FiO2 Mean Ox Delivery Rate 12/09 0946 93 Nasal 5 40 cannula 12/09 0645 75 11 132/62 89 93 12/09 0630 75 11 92 12/09 0615 75 15 120/59 85 94 12/09 0600 75 11 129/68 89 93 12/09 0545 75 22 123/71 91 90 12/09 0530 67 23 122/72 92 12/09 0515 75 13 122/57 82 12/09 0500 75 17 135/65 93 95 12/09 0445 75 12 127/66 92 94 12/09 0430 75 12 131/65 92 95 12/09 0415 57 16 133/66 93 92 12/09 0400 75 12 130/60 86 97 12/09 0345 75 12 135/68 96 97 12/09 0330 75 13 132/63 90 94 09/24 0315 75 13 130/61 88 94 09/24 0300 75 15 137/66 92 93 09/24 0245 75 15 134/69 93 93 09/24 0230 63 22 148/89 109 91 09/24 0215 13 136/66 95 96 09/24 0200 75 12 137/65 93 97 09/24 0145 75 13 142/71 100 96 09/24 0130 75 13 134/68 94 09/24 0118 90 Nasal 6 44 cannula 09/ 0115 75 13 139/71 99 09/24 0100 75 14 136/72 97 09/24 0045 75 15 134/70 96 09/24 0030 75 13 125/63 85 95 09/24 0015 75 12 131/70 91 96 09/24 0000 75 12 121/71 92 96 09/ 2345 75 12 130/67 93 97 09/ 2330 75 12 124/64 87 97 09/ 2315 75 12 126/67 86 96 09/ 2300 75 13 137/69 98 96 09/23 2245 75 13 141/66 96 96 09/23 2230 62 26 145/70 95 92 09/23 2215 48 26 155/66 95 90 09/ 2200 19 108 84 09/ 2145 75 12 162/74 106 98 09/ 2130 75 24 169/86 114 90 09/23 2100 75 12 168/77 110 09/ 2045 75 20 151/64 97 89 09/ 2041 75 13 157/73 91 09/23 2030 75 11 95 /23 2014 75 17 92 09/1999 75 14 91 09/23 1945 75 16 09/ 1943 75 12 145/69 99 09/23 1930 75 16 09/23 1915 51 20 09/ 1912 88 Nasal 5 40 cannula 09/ 1900 75 25 92 09/23 1830 65 18 09/ 1815 70 17 09/ 1800 72 24 92 09/ 1745 74 92 09/ 1730 68 17 93 09/ 1700 59 10 98 09/ 1645 59 10 98 / 1630 61 10 99 09/ 1620 97.2 09/ 1615 62 15 100 09/ 1600 59 11 100 09/ 1545 60 11 100 09/ 1530 61 11 100 09/ 1515 62 11 100 09/23 1500 67 100 09/23 1445 65 13 100 12/08 1430 65 13 100 12/08 1415 68 17 100 12/08 1400 73 21 100 12/08 1330 62 11 100 12/08 1315 69 23 100 12/08 1300 60 10 100 12/08 1245 64 16 12/08 1230 63 99 12/08 1215 73 100 12/08 1200 97.4 12/08 1200 60 12/08 1145 59 15 12/08 1130 59 22 100 12/08 1115 59 16 100 12/08 1100 64 100 12/08 1045 66 17 100 12/08 1030 66 24 100 PATIENT WEIGHT: Weight (lb): 261 Weight (oz): 8.76 Weight (kg): 118.388 Medications: Active Meds + DC'd Last 24 Hrs Iopamidol (ISOVUE-370) 0 .STK-MED ONE IV (DC) Benzocaine/Menthol (Cepacol Sore Throat Lozenge) 1 TAB Q2H PRN PRN MM ( CKD) Docusate Sodium (COLACE) 100 MG BID PO Insulin Glargine (Lantus/Semglee) 40 UNITS BEDTI ME SUBQ Insulin Human Lispro (HumaLOG) MEDIUM DOSE SLIDI NG SCALE AC HS SUBQ Lisinopril (PRINIVIL) 20 MG DAILY PO (DC) Lisinopril (PRINIVIL) 20 MG BID PO Nicardipine HCl (CARDENE I.V.) 50 MG ASDIR IV (C KD) Sodium Chloride (SODIUM CHLORIDE 0.9%) 230 ML Amlodipine Besylate (NORVASC TAB) 5 MG ONCE ONE PO (DC) Amlodipine Besylate (NORVASC TAB) 5 MG DAILY PO Aspirin (ASPIRIN EC) 81 MG BEDTIME PO Insulin Glargine (Lantus/Semglee) 20 UNITS BEDTI ME SUBQ (DC) Insulin Human Lispro (HumaLOG) LOW DOSE SLIDING SCALE AC HS SUBQ (DC) Clopidogrel Bisulfate (PLAVIX) 75 MG DAILY PO Famotidine (PEPCID) 20 MG BID PO Hopng-1-Dhdu Ethyl Esters (LOVAZA) 1 GM DAILY PO (CKD) Atorvastatin Calcium (LIPITOR) 80 MG BEDTIME PO Cefuroxime Sodium (ZINACEF) 1.5 GM Q8H IV (DC) Fenofibrate (TRICOR) 108 MG BEDTIME PO Mupirocin (BACTROBAN NASAL - ADULT ICU) 1 APPLIC BID NASAL Sodium Chloride (SODIUM CHLORIDE 0.9%) 20 ML Q8H IV (DC) Levothyroxine Sodium (Synthroid) 125 MCG DAILY@0 630 PO Meperidine HCl (DEMEROL (C-II)) 25 MG Q4H PRN CO N IM Meperidine HCl (DEMEROL (C-II)) 50 MG Q4H PRN CO N IM Calcium Gluconate/Sodium Chloride (Calcium Gluco scott 1 GM/NS 100 mL) 100 ML ASDIR PRN IV Dobutamine HCl/Dextrose (DOBUTamine HCL IN DEXTR OSE) 250 ML ASDIR PRN IV Epinephrine (EPINEPHrine/NS 4MG/250ML) 250 ML DIR PRN IV Hydrocodone Bitart/Acetaminophen (NORCO 5/325 TA BLET (C-II)) 1 TAB Q4H PRN PRN PO Hydrocodone Bitart/Acetaminophen (NORCO 5/325 TA BLET (C-II)) 2 TAB Q4H PRN PRN PO Lidocaine HCl/Dextrose (Lidocaine 0.4% in D5w So ln) 500 ML ASDIR PRN IV (CKD) Magnesium Sulfate (MAG SULFATE 2GM PREMIX) 50 ML ASDIR PRN IV Magnesium Sulfate/Dextrose (Magnesium Sulfate) 1 00 ML ASDIR PRN IV Nicardipine HCl (CARDENE I.V.) 25 MG ASDIR PRN I V (CKD) Sodium Chloride (SODIUM CHLORIDE 0.9%) 250 ML Ondansetron HCl (ZOFRAN) 4 MG Q8H PRN PRN IV Potassium Chloride (Potassium Chloride) 50 ML DIR PRN IV Dextrose/Water (DEXTROSE 50% IN WATER) 12.5 GM A SDIR PRN IV Dextrose/Water (DEXTROSE 50% IN WATER) 25 GM ASD IR PRN IV Nicardipine HCl (CARDENE I.V.) 25 MG ASDIR PRN I V (CKD) Sodium Chloride (SODIUM CHLORIDE 0.9%) 250 ML Sodium Bicarbonate (Sodium Bicarbonate) 50 MEQ A SDIR PRN IV Acetaminophen (TYLENOL) 650 MG Q4H PRN PRN PO Magnesium Hydroxide (MILK OF MAGNESIA) 30 ML ASD IR PRN PO Zolpidem Tartrate (AMBIEN (C-IV)) 5 MG BEDTIME P RN PRN PO Status post: s/p ACB X 4 Aortic Stenosis - severe s/p AVR with #21 bio Mirza. Pacemaker: external Dietitian nutrition assessment The data set between the solid lines has been im ported from the dietitian's assessment. BMI Calculated: 35.4 Nutrition related diagnosis: Nutrition diagnosis details: Nutrition problem: Nutrition etiology: Nutrition signs and symptoms: Nutrition prescription: Dietitian name: Assessment completed: Physical Exam General appearance: alert, awake, oriented, no a cute distress, pleasant, conversational, mental status normal, no respira tory distress Head/Eyes: atraumatic, normocephalic, PERRLA ENT: moist mucosal membranes Neck: no bruit/NL carotids, no JVD, no masses or swelling Cardiovascular: CV assessment: regular rate and rhythm, BP puls es = bilaterally Murmur assessment: AVR, I/ JOSEMANUEL Respiratory: on oxygen, clear to auscultation, n o distress Abdomen: soft, non-tender, no mass/organomegaly, no pulsatile mass Upper extremity: UE assessment: no edema, 2+ peripheral pulses Lower extremity: LE assessment: no edema, 2+ peripheral pulses Musculoskeletal: full range of motion (can't mov e L Leg) Neuro/CUTTER WOODWIND REEDS: left hemiparesis, alert, oriented X 3 Skin: dry, intact Psychiatry: normal affect, normal judgment/insig ht, normal mood, no hallucinations Results Findings/Data: Laboratory Tests 12/09 12/09 12/08 12/08 12/08 0637 0600 2048 1731 1051 Chemistry Sodium (137 - 145 MMOL/L) 135 L Potassium (3.5 - 5.1 MMOL/L) 4.0 Chloride (98 - 107 MMOL/L) 102 Carbon Dioxide (22 - 30 MMOL/L) 28 Anion Gap (14 - 24 MMOL/L) 9 L BUN (9 - 20 MG/DL) 18 Creatinine (0.66 - 1.25 MG/DL) 1.20 Glomerular Filtr Rate > 60 Glucose (74 - 106 MG/DL) 168 H POC Glucose (60 - 99 MG/DL) 163 H 161 H 168 H 1 89 H Calcium (8.4 - 10.2 MG/DL) 8.2 L Laboratory Tests 12/09 0600 Coagulation INR (0.86 - 1.14) 1.0 PT Patient/Control Mix (9.4 - 12.7 SECONDS) 11. 7 Laboratory Tests 12/09 0600 Hematology WBC (3.8 - 9.8 K/MM3) 12.0 H RBC (3.95 - 5.67 M/MM3) 2.94 L Hgb (12.4 - 16.7 G/DL) 8.9 L Hct (35.9 - 49.5 %) 27.7 L MCV (81.7 - 96.1 fL) 94 MCH (27.6 - 33.2 pg) 30.3 MCHC (32.9 - 35.5 %) 32.1 L RDW (12.1 - 15.2 %) 12.9 Plt Count (129 - 368 K/MM3) 98 L MPV (7.4 - 10.4 fl) 10.8 H Neut % (Auto) (43 - 75 %) 68.4 Lymph % (Auto) (14 - 44 %) 20.4 [place] % (Auto) (4 - 13 %) 10.1 Eos % (Auto) (0 - 6 %) 0.5 Baso % (Auto) (0 - 2 %) 0.2 Neut # (Auto) (2.0 - 7.6 K/mm3) 8.21 H Lymph # (Auto) (1.0 - 3.8 K/mm3) 2.46 [place] # (Auto) (0.1 - 0.8 K/mm3) 1.22 H Eos # (Auto) (0.0 - 0.2 K/mm3) 0.06 Baso # (Auto) (0.0 - 0.2 K/mm3) 0.03 Immature Gran % (0.0 - 2.0 %) 0.4 Nucleated RBC % (0 - 1.0 %) 0.0 Nucleated RBCs # (Man) (0.0 - 0.1 K/mm3) 0.00 Radiology data: Recent Impressions: CAT SCAN - CT HEAD/BRAIN W/O CONT 12/09 1823 Report Impression - Status: SIGNED Entered: 12/08/20211945 IMPRESSION: Sellar/suprasellar mass with likely involvement of the left cavernous sinus and potentially encasement of the left MCA could relate to a pituitary macroadenoma, meningioma or potentiall y a craniopharyngioma. If not previously known, recommend follow-up wi th a nonemergent MRI brain without and with contrast utilizing a pitu itary sella protocol. Impression By: [email or web address] - Rody Preciado MD CAT SCAN - CT ANGIO NECK W WO CONT 12/09 0500 Report Impression - Status: SIGNED Entered: 12/09/2021 0620 IMPRESSION: 1. No hemodynamically significant stenoses of th e cervical internal carotid or vertebral arteries. 2. No hemodynamically significant stenoses of th e anterior, middle, or posterior cerebral arteries. 3. No aneurysm, occlusion, or dissection. Impression By: Raudel Morton MD CAT SCAN - CT ANGIO HEAD 12/09 0500 Report Impression - Status: SIGNED Entered: 12/09/2021 0620 IMPRESSION: 1. No hemodynamically significant stenoses of th e cervical internal carotid or vertebral arteries. 2. No hemodynamically significant stenoses of th e anterior, middle, or posterior cerebral arteries. 3. No aneurysm, occlusion, or dissection. Impression By: Raudel Morton MD CAT SCAN - CT HEAD/BRAIN W/O CONT 12/09 0500 Report Impression - Status: SIGNED Entered: 12/09/2021 0550 IMPRESSION: Stable suprasellar mass with peripheral calcific ations otherwise no acute findings and no changes from one day prior . Impression By: Mark Lugo M.D. Results: labs reviewed, vital signs reviewed, vi bryant signs stable, CT results reviewed, EKG personally reviewed, rhythm person ally rev'd, x-ray personally reviewed, current med profile rev'd EKG Interpretation: normal sinus rhythm Telemetry Interpretation: SR Diagnosis, Assessment Plan Hospital course to date: IMP: -CAD s/p ACB X 4 -Aortic Stenosis - severe s/p AVR with #21 bio Mirza. -DM -HTN -HLP -Mild mR -TAA -L hemiparesis post-op, brain tumor noted PLAN: Decrease pacing. Amlodipine/Home meds Neuro following Ambulate when possible Discussed in detail with CV Team and pt and fam chelsie. Problem List/A P: 1. Aortic stenosis, severe 2. Coronary artery disease involving [place] cor onary artery 3. Thoracic aortic aneurysm, without rupture 4. DM2 (diabetes mellitus, type 2) 5. HTN (hypertension), benign 6. Obesity (BMI 30-39.9) 7. CKD (chronic kidney disease) stage 3, GFR 30 -59 ml/min 8. Hyperlipidemia 9. Acute left-sided weakness 10. S/P AVR (aortic valve replacement) 11. S/P CABG x 4 Orders: Procedure Date/time Status EKG 12/10 0500 Active Consultants: cardiovascular surgery, hospitalist , neurology Plan discussed with: patient, spouse/partner, kika broderick, consultants, nurse Code Status/Resusc. Discussion Code status: full code at 1027 RPT #:[id number] END OF REPORT 2021-12-09 05:55:00-00:00 [id number] [address] PATIENT NAME: GARCÍA MARRERO ADMIT DATE: ACCOUNT NO: [id number] ROOM NO: Z.SI02 AGE: 66 REPORT TYPE: ELECTROCARDIOGRAM SEX: M ADMITTING PHYSICIAN:Wil Aragon MD ATTENDING PHYSICIAN:Wil Aragon MD Order: [id number] Test Reason : CAD Test Date/Time Stamp: SatDec 09 2021 05:55:22 Blood Pressure : / mmHG Vent. Rate : 076 BPM Atrial Rate : 076 BPM P-R Int : 262 ms QRS Dur : 096 ms QT Int : 432 ms P-R-T Axes : 052 -80 -23 degree s QTc Int : 486 ms AV sequential or dual chamber electronic pacemak er When compared with ECG of 07-DEC-2021 05:33, No significant change was found Confirmed by SHAHID JENSEN ([id number]) on 12/09/2021 6:11:19 AM Referred By: Wil Aragon Confirmed by:SHAHID LUNDBERG at 0611 PATIENT NAME: GARCÍA MARRERO [id number] 2021-12-09 05:55:00-00:00 [id number] [place] [id number] PATIENT NAME: GARCÍA MARRERO ADMIT DATE: 11/17 04/08 ACCOUNT NO: [id number] ROOM NO: Z.SI02 AGE: 66 REPORT TYPE: ELECTROCARDIOGRAM SEX: M ADMITTING PHYSICIAN:Wil Aragon MD ATTENDING PHYSICIAN:Wil Aragon MD Order: [id number] Test Reason : CAD Test Date/Time Stamp: SatDec 09 2021 05:55:22 Blood Pressure : / mmHG Vent. Rate : 076 BPM Atrial Rate : 076 BPM P-R Int : 262 ms QRS Dur : 096 ms QT Int : 432 ms P-R-T Axes : 052 -80 -23 degree s QTc Int : 486 ms AV sequential or dual chamber electronic pacemak er When compared with ECG of 07-DEC-2021 05:33, No significant change was found Confirmed by SHAHID JENSEN ([id number]) on 12/11/2021 5:38:23 PM Referred By: Wil Aragon Confirmed by:SHAHID LUNDBERG at 1738 PATIENT NAME: GARCÍA MARRERO [id number] 2021-12-09 01:08:00-00:00 [id number] [place] [id number] PATIENT NAME: GARCÍA MARRERO ADMIT DATE: 11/17 04/08 ACCOUNT NO: [id number] ROOM NO: Z.SI02 AGE: 66 REPORT TYPE: PROGRESS NOTE SEX: M ADMITTING PHYSICIAN:Wil Aragon MD ATTENDING PHYSICIAN:Wil Aragon MD DATE: 12/08/2021 CARDIAC SURGERY SERVICE The patient is seen at bedside in the ICU. The p atient currently is stable. The patient feels little weak and although neuro logically intact. The CAT scan, which showed a brain tumor, most likely be nign. I discussed with the patient at the bedside. Neurology consult to be done. Good progress postop after surgery and workup the mass as an outpatie nt. I discussed this with the patient and his family. Dictated By: Wil Aragon MD Date Dictated: 12/09/2021 01:08:32 Date Transcribed: 12/09/2021 02:28:49 DOUG/FELICITY Receipt ID: [id number] Authenticated and Edited by Wil Aragon MD On 01/15/22 8:57:57 PM at [id number] PATIENT NAME: GARCÍA MARRERO [id number] 2021-12-08 21:05:00-00:00 [id number] [place] [address] PATIENT NAME: GARCÍA MARRERO ADMIT DATE: 11/17 04/08 ACCOUNT NO: [id number] ROOM NO: [id number] AGE: 66 REPORT TYPE: CONSULTATION REPORT SEX: M ADMITTING PHYSICIAN:Wil Aragon MD ATTENDING PHYSICIAN:Wil Aragon MD CONSULTATION DATE: 12/08/2021 REFERRING PHYSICIAN: Wil Aragon M.D. REASON FOR CONSULTATION: Left-sided weakness. HISTORY OF PRESENT ILLNESS: The patient is a 66- year-old man with a past medical history of hypertens ion, diabetes, hyperlipidemia, aortic stenosis, and severe coronary artery disease, who underwent on 04/07/2021, coronary artery bypass surgery. He did well in the immed iate postoperative period. He may have noticed some weakness of his hospice consultant yester day, but did not make much of it. This morning, he was found with severe difficulties s tanding up unassisted. These were due to left-sided weakness. When he was being ambulated yesterday, it was felt that he was occasionally drifting to the le ft. His symptoms seemed to be significantly improved since this mornin g. When I was called about his case, I sent him for a stat CT scan of the brain, which did not reveal any acute changes. There is a suprasellar mass, po ssibly a pituitary macroadenoma. There is no prior imaging on record. PAST MEDICAL HISTORY: As above. PAST SURGICAL HISTORY: Noncontributory. MEDICATIONS: Please see medication list. He is o n aspirin, Plavix, and a statin. ALLERGIES: NO KNOWN DRUG ALLERGIES. REVIEW OF SYSTEMS: Otherwise, noncontributory. FAMILY HISTORY: Noncontributory. PHYSICAL EXAMINATION: VITAL SIGNS: Blood pressure is 123/60, pulse is 65, respirations are 18, temperature 97.2. GENERAL: Elderly male, lying in bed, in no acute distress. HEENT: Head is atraumatic, normocephalic. NECK: Supple. LUNGS: Clear and resonant to auscultation. HEART: Reveals normal S1, S2 with no murmur, rub or gallop. ABDOMEN: Soft. EXTREMITIES: Without cyanosis, clubbing or edema . PATIENT NAME: GARCÍA MARRERO [id number] NEUROLOGIC: He is awake, alert and oriented. His speech is fluent and intelligible. He maintained adequate attention s allen and short-term memory throughout this interview. C ranial nerve examination reveals normal extraocular range of motion. No facial asymmetry or paresis, normal sensation in all three branches of trigeminal nerve. Motor examination reveals normal strength throughout the right side. There is mild weaknes s on the left, graded 4+ to 5-/5. Sensory examination does not reveal any he misensory loss. There is no reflex asymmetry. PERTINENT LABORATORY DATA: His only pertinent la b is the CT scan of the brain done today, which is detailed above. Again, ther e are no acute ischemic changes. There appears to be a chronic s uprasellar mass, possibly representing a pituitary macroadenoma. In summary, the 66-year-old man with a past medical history of multiple medical problems, underwent on 12/06/2021 a fernanda nary artery bypass surgery. Yesterday, while ambulating, he was noted to be slightly dr ifting to the left. This morning, when he tried to get out of bed, he cou ld not hold himself steady, seemed to display significant left-sided weaknes s. On my examination, he has mild left-sided weakness graded 4+ to 5- /5 in the arm and the leg. There is no facial weakness. I suspect that he possibly sust ained a small pontine lacune. There is no bleeding and on his CT scan of the b rain. There appears to be a suprasellar mass, possibly a macroadenom a. This can be worked up later on with an MRI of the brain and the pituitary wi th and without contrast. This is in no way contributing to his presentation. I may repe at a CT scan of the brain tomorrow to see if we can visualize the stroke. In the meantime, he remains on aspirin, Plavix, and atorvastatin. He is undergo ing physical therapy. Dictated By: Madalyn Cueto MD Date Dictated: 12/08/2021 21:05:13 Date Transcribed: 12/08/2021 22:16:13 /EDSON Receipt ID: [id number] Authenticated by Madalyn Cueto MD On 09:03:40 PM Electronically Signed by Madalyn Cueto MD on at 0903 PATIENT NAME: GARCÍA MARRERO [id number] 2021-12-08 18:12:00-00:00 [facility] ([facility]) Hospitalist Progress Note REPORT#:[id number] REPORT STATUS: Signed DATE:12/08/21 TIME: 1811 PATIENT: GARCÍA MARRERO UNIT #: [id number] ROOM/BED: [facility] : 55 AGE: 66 SEX: M ATTEND: Ady Aragon MD ADM AUTHOR: Faustino Mercado MD * ALL edits or amendments must be made on the el [employer]/computer document * Subjective Chief complaint: s/p ACB and AVR HPI: POD#2 ACB and AVR Pt seen sitting up in chair, c/o transient left arm weakness this morning as he was unable to hold his cup w ithout drifting it to the right. Nurse also reports pt was leanig toward his left side as he required more assistance getting OOB. The weakness only lasted for a few seconds. Currently pt's in NSR without pacing , rate 60-70s. FSBG 160-180s, and cardene gtt re started for hypertension. pt reported he walked in hallway with PT this AM Review of Systems Constitutional: Denies: chills, fatigue, fev er, generalized weakness, lethargy, malaise, recent wt loss, other. Respiratory: Denies: PHELPS (dyspnea on exertion), hemoptysis, n on productive cough, parox nocturnal dyspnea, pleurisy, pleuritic pain, pneumonia, productive cough (sputum ), SOB, wheezing, other. Cardiovascular: Denies: chest pain, PHELPS (dyspnea on exer tion), edema, orthopnea, palpitations, parox nocturnal dyspnea, other. GI: Denies: abdominal pain, anorexia, constipation, diarrhea, dysphagia, GERD, hematemesis, hematochezia, h iatal hernia, melena, nausea, rectal pain, vomiting, other. All systems rev neg: except as marked Objective General VS/I O: Vital Signs: Date Time Temp Pulse Resp B/P B/P Pulse O2 O2 F low FiO2 Mean Ox Delivery Rate 12/08 1620 97.2 12/08 1600 59 11 100 12/08 1545 60 11 100 12/08 1530 61 11 100 12/08 1515 62 11 100 12/08 1500 67 100 12/08 1445 65 13 100 12/08 1430 65 13 100 12/08 1415 68 17 100 12/08 1400 73 21 100 12/08 1330 62 11 100 12/08 1315 69 23 100 12/08 1300 60 10 100 12/08 1245 64 16 100 12/08 1230 63 99 12/08 1215 73 100 12/08 1200 97.4 12/08 1200 60 100 12/08 1145 59 15 100 12/08 1130 59 22 100 12/08 1115 59 16 100 12/08 1100 64 100 12/08 1045 66 17 100 12/08 1030 66 24 100 12/08 1015 59 9 100 12/08 1000 66 24 99 12/08 0945 66 24 100 12/08 0930 69 25 98 12/08 0915 79 22 12/08 0845 75 13 100 12/08 0830 75 14 100 12/08 0815 75 20 100 12/08 0800 75 13 100 12/08 0800 100 Nasal 4 36 cannula 12/08 0745 75 99 12/08 0730 75 16 100 12/08 0715 97.0 12/08 0715 Nasal 3 cannula 12/08 0715 75 100 12/08 0700 75 100 12/08 0027 75 10 100 12/08 0015 75 10 100 12/08 0000 75 11 100 12/07 2345 75 11 100 12/07 2330 75 11 100 12/07 2315 75 11 100 12/07 2300 75 37 96 12/07 2245 75 14 99 12/07 2230 75 11 100 12/07 2215 75 11 100 12/07 2200 75 12 100 12/07 2145 75 15 100 12/07 2130 75 11 100 12/07 2115 75 15 100 12/07 2100 75 16 99 12/07 2045 75 13 100 12/07 2030 75 12 100 12/07 2014 75 17 99 12/08 1999 97.0 12/08 1999 Nasal 3 cannula 12/08 1999 75 25 100 12/07 1945 75 20 96 12/07 1930 75 19 92 12/07 1900 75 11 100 12/07 1845 75 12 100 12/07 1837 96 Nasal 4 36 cannula 12/07 1830 75 15 100 12/07 1824 75 11 100 24 hour I O ending at 0700: 12/08 0700 12/07 1900 Intake Total 1780.00 Output Total 1680 1920 Balance -1680 -140.00 Intake, IV 810.00 Intake, Oral 970 Output, Chest 80 170 Tube Drainage Output, Urine 1600 1750 Patient 118.388 kg Weight PATIENT WEIGHT: Weight (lb): 261 Weight (oz): 8.76 Weight (kg): 118.388 Medications: Active Meds + DC'd Last 24 Hrs Docusate Sodium (COLACE) 100 MG BID PO Insulin Glargine (Lantus/Semglee) 40 UNITS BEDTI ME SUBQ Insulin Human Lispro (HumaLOG) MEDIUM DOSE SLIDI NG SCALE AC HS SUBQ Lisinopril (PRINIVIL) 20 MG DAILY PO Nicardipine HCl (CARDENE I.V.) 50 MG ASDIR IV (C KD) Sodium Chloride (SODIUM CHLORIDE 0.9%) 230 ML Amlodipine Besylate (NORVASC TAB) 5 MG ONCE ONE PO (DC) Amlodipine Besylate (NORVASC TAB) 5 MG DAILY PO Aspirin (ASPIRIN EC) 81 MG BEDTIME PO Insulin Glargine (Lantus/Semglee) 20 UNITS BEDTI ME SUBQ (DC) Insulin Human Lispro (HumaLOG) LOW DOSE SLIDING SCALE AC HS SUBQ (DC) Dextrose/Water (DEXTROSE 50% IN WATER) 12.5 GM A SDIR PRN IV (DC) Dextrose/Water (DEXTROSE 50% IN WATER) 25 GM ASD IR PRN IV (DC) Clopidogrel Bisulfate (PLAVIX) 75 MG DAILY PO Famotidine (PEPCID) 20 MG BID PO [id number]-6-[id number] Ethyl Esters (LOVAZA) 1 GM DAILY PO (CKD) Atorvastatin Calcium (LIPITOR) 80 MG BEDTIME PO Cefuroxime Sodium (ZINACEF) 1.5 GM Q8H IV (DC) Fenofibrate (TRICOR) 108 MG BEDTIME PO Mupirocin (BACTROBAN NASAL - ADULT ICU) 1 APPLIC BID NASAL Sodium Chloride (SODIUM CHLORIDE 0.9%) 20 ML Q8H IV (DC) Levothyroxine Sodium (Synthroid) 125 MCG DAILY@0 630 PO Meperidine HCl (DEMEROL (C-II)) 25 MG Q4H PRN CO N IM Meperidine HCl (DEMEROL (C-II)) 50 MG Q4H PRN CO N IM Calcium Gluconate/Sodium Chloride (Calcium Gluco scott 1 GM/NS 100 mL) 100 ML ASDIR PRN IV Dobutamine HCl/Dextrose (DOBUTamine HCL IN DEXTR OSE) 250 ML ASDIR PRN IV Epinephrine (EPINEPHrine/NS 4MG/250ML) 250 ML DIR PRN IV Hydrocodone Bitart/Acetaminophen (NORCO 5/325 TA BLET (C-II)) 1 TAB Q4H PRN PRN PO Hydrocodone Bitart/Acetaminophen (NORCO 5/325 TA BLET (C-II)) 2 TAB Q4H PRN PRN PO Lidocaine HCl/Dextrose (Lidocaine 0.4% in D5w So ln) 500 ML ASDIR PRN IV (CKD) Magnesium Sulfate (MAG SULFATE 2GM PREMIX) 50 ML ASDIR PRN IV Magnesium Sulfate/Dextrose (Magnesium Sulfate) 1 00 ML ASDIR PRN IV Morphine Sulfate (morphine SULFATE (C-II)) 2 MG Q15M PRN PRN IV (DC) Nicardipine HCl (CARDENE I.V.) 25 MG ASDIR PRN I V (CKD) Sodium Chloride (SODIUM CHLORIDE 0.9%) 250 ML Ondansetron HCl (ZOFRAN) 4 MG Q8H PRN PRN IV Potassium Chloride (Potassium Chloride) 50 ML DIR PRN IV Potassium Chloride/Dextrose/Sod Cl (DEXTROSE 5%- 1/4NS-KCL 20MEQ) 1,000 ML .[id number] IV (DC) Dextrose/Water (DEXTROSE 50% IN WATER) 12.5 GM A SDIR PRN IV Dextrose/Water (DEXTROSE 50% IN WATER) 25 GM ASD IR PRN IV Insulin Human Regular (HUMULIN R) 100 UNIT ASDIR IV (DC) Sodium Chloride (SODIUM CHLORIDE 0.9%) 100 ML Nicardipine HCl (CARDENE I.V.) 25 MG ASDIR PRN I V (CKD) Sodium Chloride (SODIUM CHLORIDE 0.9%) 250 ML Sodium Bicarbonate (Sodium Bicarbonate) 50 MEQ A SDIR PRN IV Acetaminophen (TYLENOL) 650 MG Q4H PRN PRN PO Magnesium Hydroxide (MILK OF MAGNESIA) 30 ML ASD IR PRN PO Zolpidem Tartrate (AMBIEN (C-IV)) 5 MG BEDTIME P RN PRN PO Physical Exam General appearance: obese, alert, awake Head/Eyes: atraumatic, normal eyelids/periorb. ENT: moist mucosal membranes, normal dentition, Maynard gas catheter Cardiovascular: normal heart sounds, reg ular rate rhythm, no murmur, AV pacing Respiratory: chest tube (2 chest tubes), aerating well, clear to auscultation, symmetric expansion, no distress, Vent s ettings RR- 18 PEEP- 5 Peak Pressure - 16 Tidal volume - 524 FiO2- 60 Abdomen: non-tender, soft Genitourinary: urinary catheter Extremities: moves all, no clubbing, no cyanosis Neuro/CUTTER WO[employer] REEDS: no motor deficits Skin: dry, normal temperature Psychiatry: unable to evaluate Results Findings/Data: Laboratory Tests 12/08 12/08 12/08 12/07 1731 1051 0631 2009 Chemistry POC Glucose (60 - 99 MG/DL) 168 H 189 H 149 H 1 67 H Laboratory Tests 12/08 0520 Coagulation INR (0.86 - 1.14) 1.1 PT Patient/Control Mix (9.4 - 12.7 SECONDS) 12. 0 Radiology data: Recent Impressions: RADIOLOGY - XR CHEST 1V 12/08 0500 Report Impression - Status: SIGNED Entered: 12/08/2021 0806 IMPRESSION: Mild cardiomegaly. Trace left pleural effusion. Impression By: [email or web address] - Cedric Jackson MD Diagnosis, Assessment Plan Problem List/A P: 1. S/P AVR (aortic valve replacement) POD#2, post-op pain controlled 2. S/P CABG x 4 Clinically compensated 3. Acute left-sided weakness Acute transient weakness of left arm and leg, r esolved after seconds 4. DM2 (diabetes mellitus, type 2) Increase basal insulin lantus 40 unit tonight 5. HTN (hypertension), benign BP elevated on cardene gtt. - continue amlodipine, restart home lisinopril - hold coreg due to mild bradycardia 6. Thoracic aortic aneurysm, without rupture Free Text DxA P Notes Free text DxA P notes: POD#2,Pt c/o transient left sided weakness lasti ng only few seconds, now resolved. BP and FSBG elevated - Continue asa, plavix, and statin - Increase lantus 40 units tonight - Contiue amlodipine, start lisinopril 20 bid DVt/GI prophylaxis Will continue to follow Quality: Gen Med Crit Care VTE Prophylaxis VTE prophylaxis initiated: yes Current Medications Current medication review: I attest that the foregoing medication list in t medical record is true, accurate, and complete to the best of my knowled ge. Electronically Signed by Faustino Mercado MD on at 1830 RPT #:[id number] END OF REPORT 2021-12-08 10:07:00-00:00 [id number] [address] PATIENT NAME: GARCÍA MARRERO ADMIT DATE: 11/17 04/08 ACCOUNT NO: [id number] ROOM NO: Z.SI02 AGE: 66 REPORT TYPE: ELECTROCARDIOGRAM SEX: M ADMITTING PHYSICIAN:Wil Aragon MD ATTENDING PHYSICIAN:Wil Aragon MD Order: [id number] Test Reason : CAD Test Date/Time Stamp: SatDec 08 2021 10:07:00 Blood Pressure : / mmHG Vent. Rate : 062 BPM Atrial Rate : 062 BPM P-R Int : 214 ms QRS Dur : 116 ms QT Int : 442 ms P-R-T Axes : 024 -13 -22 degree s QTc Int : 448 ms Sinus rhythm with 1st degree AV block Left ventricular hypertrophy with QRS widening ST elevation, consider early repolarization, per icarditis, or injury Nonspecific ST and T wave abnormality Abnormal ECG When compared with ECG of 07-DEC-2021 05:33, Sinus rhythm has replaced Electronic ventricular pacemaker Confirmed by SHAHID JENSEN ([id number]) on 12/11/2021 5:38:43 PM Referred By: Wil Aragon Confirmed by:SHAHID LUNDBERG at 1738 PATIENT NAME: GARCÍA MARRERO [id number] 2021-12-08 06:22:00-00:00 [facility] ([facility] Cardiology Progress Note REPORT#:[id number] REPORT STATUS: Signed DATE:12/08/21 TIME: 621 PATIENT: GARCÍA MARRERO UNIT #: [id number] ROOM/BED: [address] : [address] AGE: 66 SEX: M ATTEND: Ady Aragon MD ADM AUTHOR: Aidee Armstrong MD * ALL edits or amendments must be made on the [employer]/computer document * Subjective HPI: 66year old male with h/o CAD, , now s/p ACB, A VR. No c/o chest pain, palpitations, dyspnea. Patient reports: No: chest pain, palpitations, shortness of breat h. Objective General VS/I O: 24 hour I O ending at 0700: 12/08 0700 12/07 1900 Intake Total 1780.00 Output Total 1680 1920 Balance -1680 -140.00 Intake, IV 810.00 Intake, Oral 970 Output, Chest 80 170 Tube Drainage Output, Urine 1600 1750 Patient 118.388 kg Weight Vital Signs: Date Time Temp Pulse Resp B/P B/P Pulse O2 O2 F low FiO2 Mean Ox Delivery Rate 12/08 0027 75 10 100 12/08 0015 75 10 100 12/08 0000 75 11 100 12/07 2345 75 11 100 12/07 2330 75 11 100 12/07 2315 75 11 100 12/07 2300 75 37 96 12/07 2245 75 14 99 12/07 2230 75 11 100 12/07 2215 75 11 100 12/07 2200 75 12 100 12/07 2145 75 15 100 12/07 2130 75 11 100 12/07 2115 75 15 100 12/07 2100 75 16 99 12/07 2045 75 13 100 12/07 2030 75 12 100 12/07 2015 75 17 99 12/08 1999 97.0 12/08 1999 Nasal 3 cannula 12/08 1999 75 25 100 12/07 1945 75 20 96 12/07 1930 75 19 92 12/07 1900 75 11 100 12/07 1845 75 12 100 12/07 1837 96 Nasal 4 36 cannula 12/07 1830 75 15 100 12/07 1824 75 11 100 12/07 1815 75 11 100 12/07 1800 75 11 100 12/07 1745 75 26 93 12/07 1730 75 13 100 12/07 1715 75 18 99 12/07 1700 75 12 100 12/07 1645 75 11 100 12/07 1630 75 20 99 12/07 1615 75 10 100 12/07 1600 97.2 75 25 123/60 81 100 Nasal 3 cannula 12/07 1600 75 21 98 12/07 1545 75 16 100 12/07 1530 75 22 100 12/07 1515 75 15 100 12/07 1500 75 20 99 12/07 1445 75 12/07 1430 75 21 12/07 1415 75 100 12/07 1400 75 100 12/07 1345 75 100 12/07 1330 75 100 12/07 1315 75 100 12/07 1300 75 100 12/07 1245 75 99 12/07 1230 75 100 12/07 1215 75 100 12/07 1200 75 100 12/07 1145 75 25 100 12/07 1130 75 17 100 12/07 1115 75 25 100 09/ 1100 75 22 100 09/ 1045 75 19 100 / 1030 75 100 / 1015 75 19 100 / 1000 75 19 / 0945 75 19 100 / 0930 75 18 99 / 0915 75 100 /22 0900 75 100 / 0845 75 100 / 0830 75 100 / 0815 75 100 / 0800 75 99 / 0745 75 100 12/07 0730 Nasal 5 cannula 12/07 0730 75 100 12/07 0729 98.3 75 22 100 Nasal 5 cannula 12/07 0715 75 23 100 / 0700 75 12 100 12/07 0645 75 23 100 12/07 0630 75 12 100 12/07 0626 75 13 100 PATIENT WEIGHT: Weight (lb): 261 Weight (oz): 8.76 Weight (kg): 118.388 Medications: Active Meds + DC'd Last 24 Hrs Aspirin (ASPIRIN EC) 81 MG BEDTIME PO Insulin Glargine (Lantus/Semglee) 20 UNITS BEDTI ME SUBQ Insulin Human Lispro (HumaLOG) LOW DOSE SLIDING SCALE AC HS SUBQ Dextrose/Water (DEXTROSE 50% IN WATER) 12.5 GM A SDIR PRN IV Dextrose/Water (DEXTROSE 50% IN WATER) 25 GM ASD IR PRN IV Clopidogrel Bisulfate (PLAVIX) 75 MG DAILY PO Famotidine (PEPCID) 20 MG BID PO Yekjx-3-Bgzq Ethyl Esters (LOVAZA) 1 GM DAILY PO (CKD) Albumin Human (ALBUMINAR-25) 25 GM .STK-MED ONE Z (DC) Albumin Human (ALBUMINAR-5) 25 GM .STK-MED ONE Z (DC) Heparin Sodium (HEPARIN SODIUM) 20,000 UNITS .ST K-MED ONE Z (DC) Heparin Sodium (Porcine) (Heparin Sodium) 1,000 UNIT .STK-MED ONE Z (DC) Magnesium Sulfate (MAGNESIUM SULFATE 50%) 10 GM .STK-MED ONE Z (DC) Mannitol (OSMITROL 20%) 100 GM .STK-MED ONE Z (D C) Parenteral Electrolytes (PLASMA-LYTE A PH 7.4) 3 ,000 ML .STK-MED ONE Z ( DC) Potassium Chloride (POTASSIUM CHLORIDE) 60 MEQ . STK-MED ONE Z (DC) Sodium Bicarbonate (Sodium Bicarbonate) 50 MEQ . STK-MED ONE Z (DC) Sodium Chloride (SODIUM CHLORIDE 0.9%) 2,000 ML .STK-MED ONE Z (DC) Epinephrine (EPINEPHrine/NS 4MG/250ML) 250 ML CAT SWAMPER ONE IV (DC) Phenylephrine HCl (HARJINDER-SYNEPHRINE/NS 10MG/100ML) 100 ML ONCALL ONE IV ( DC) Tranexamic Acid (CYKLOKAPRON) 1,704.45 MG ONCALL ONE IV (DC) Sodium Chloride (SODIUM CHLORIDE 0.9%) 50 ML Tranexamic Acid (CYKLOKAPRON) 0.001 MG ONCALL ON E IV (DC) Sodium Chloride (SODIUM CHLORIDE 0.9%) 250 ML Atorvastatin Calcium (LIPITOR) 80 MG BEDTIME PO Cefuroxime Sodium (ZINACEF) 1.5 GM Q8H IV Famotidine (PEPCID) 20 MG BID IV (DC) Fenofibrate (TRICOR) 108 MG BEDTIME PO Mupirocin (BACTROBAN NASAL - ADULT ICU) 1 APPLIC BID NASAL Sodium Chloride (SODIUM CHLORIDE 0.9%) 20 ML Q8H IV (CKD) Levothyroxine Sodium (Synthroid) 125 MCG DAILY@0 630 PO Meperidine HCl (DEMEROL (C-II)) 25 MG Q4H PRN CO N IM Meperidine HCl (DEMEROL (C-II)) 50 MG Q4H PRN CO N IM Calcium Gluconate/Sodium Chloride (Calcium Gluco scott 1 GM/NS 100 mL) 100 ML ASDIR PRN IV Dobutamine HCl/Dextrose (DOBUTamine HCL IN DEXTR OSE) 250 ML ASDIR PRN IV Epinephrine (EPINEPHrine/NS 4MG/250ML) 250 ML DIR PRN IV Hydrocodone Bitart/Acetaminophen (NORCO 5/325 TA BLET (C-II)) 1 TAB Q4H PRN PRN PO Hydrocodone Bitart/Acetaminophen (NORCO 5/325 TA BLET (C-II)) 2 TAB Q4H PRN PRN PO Lidocaine HCl/Dextrose (Lidocaine 0.4% in D5w So ln) 500 ML ASDIR PRN IV (CKD) Magnesium Sulfate (MAG SULFATE 2GM PREMIX) 50 ML ASDIR PRN IV Magnesium Sulfate/Dextrose (Magnesium Sulfate) 1 00 ML ASDIR PRN IV Morphine Sulfate (morphine SULFATE (C-II)) 2 MG Q15M PRN PRN IV Nicardipine HCl (CARDENE I.V.) 25 MG ASDIR PRN I V (CKD) Sodium Chloride (SODIUM CHLORIDE 0.9%) 250 ML Ondansetron HCl (ZOFRAN) 4 MG Q8H PRN PRN IV Potassium Chloride (Potassium Chloride) 50 ML DIR PRN IV Potassium Chloride/Dextrose/Sod Cl (DEXTROSE 5%- 1/4NS-KCL 20MEQ) 1,000 ML .[id number] IV Dextrose/Water (DEXTROSE 50% IN WATER) 12.5 GM A SDIR PRN IV Dextrose/Water (DEXTROSE 50% IN WATER) 25 GM ASD IR PRN IV Insulin Human Regular (HUMULIN R) 100 UNIT ASDIR IV (CKD) Sodium Chloride (SODIUM CHLORIDE 0.9%) 100 ML Nicardipine HCl (CARDENE I.V.) 25 MG ASDIR PRN I V (CKD) Sodium Chloride (SODIUM CHLORIDE 0.9%) 250 ML Sodium Bicarbonate (Sodium Bicarbonate) 50 MEQ A SDIR PRN IV Acetaminophen (TYLENOL) 650 MG Q4H PRN PRN PO Magnesium Hydroxide (MILK OF MAGNESIA) 30 ML ASD IR PRN PO Zolpidem Tartrate (AMBIEN (C-IV)) 5 MG BEDTIME P RN PRN PO Physical Exam General appearance: alert, awake, oriented Head/Eyes: atraumatic, normocephalic ENT: moist mucosal membranes Neck: no JVD Cardiovascular: CV assessment: regular rate and rhythm Respiratory: clear to auscultation, no distress Lower extremity: LE assessment: no edema Musculoskeletal: full range of motion 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 0 Radiology data: Recent Impressions: RADIOLOGY - XR CHEST 1V 12/07 0530 Report Impression - Status: SIGNED Entered: 12/07/2021 0722 IMPRESSION: Single AP view of the chest is provided. Endotra cheal tube has been removed. Other support lines and tubes are simil ar. Cardiomegaly with vascular congestion persists. Trace effusions ar e unchanged. There is no pneumothorax. No additional interval change. Impression By: Tuan - Tobi Richard MD Diagnosis, Assessment Plan Hospital course to date: IMP: CAD s/p ACB X 4 Aortic Stenosis - severe s/p AVR with #21 bio Mirza. DM HTN HLP PLAN: Decrease pacing. Amlodipine Ambulate. at 0940 RPT #:[id number] END OF REPORT 2021-12-08 00:22:00-00:00 [id number] [place] [id number] PATIENT NAME: GARCÍA MARRERO ADMIT DATE: 11/17 04/08 ACCOUNT NO: [id number] ROOM NO: Z.SI02 AGE: 66 REPORT TYPE: PROGRESS NOTE SEX: M ADMITTING PHYSICIAN:Wil Aragon MD ATTENDING PHYSICIAN:Wil Aragon MD DATE: 12/07/2021 CARDIAC SURGERY SERVICE SUBJECTIVE: The patient is seen at the bedside i n ICU. The patient is one day status post coronary artery bypass and aortic va lve replacement. The patient was extubated last night. The patient is doing w ell postoperatively, now stable. We will begin to remove monitoring lines today. Dictated By: Wil Aragon MD Date Dictated: 12/08/2021 00:22:18 Date Transcribed: 12/08/2021 01:35:22 RLM/AFS Receipt ID: [id number] Authenticated by Wil Aragon MD On 022 01:12:51 PM at 0112 PATIENT NAME: GARCÍA MARRERO [id number] 2021-12-07 19:09:00-00:00 [facility] ([facility]) Hospitalist Progress Note REPORT#:[id number] REPORT STATUS: Signed DATE:12/07/21 TIME: 1908 PATIENT: GARCÍA MARRERO UNIT #: [id number] ROOM/BED: [address] : 55 AGE: 66 SEX: M ATTEND: Ady Aragon MD ADM AUTHOR: Faustino Mercado MD * ALL edits or amendments must be made on the [employer] document * Subjective Chief complaint: s/p ACB and AVR HPI: POD#1 ACB and AVR pt ecxtubaetd o/n and seen sitting up in chair, breathing comfortably without dyspnea. BP and FSBG controlled on insulin gtt a nd cardene gtt. Review of Systems Constitutional: Denies: chills, fatigue, fev er, generalized weakness, lethargy, malaise, recent wt loss, other. Respiratory: Denies: PHELPS (dyspnea on exertion), hemoptysis, n on productive cough, parox nocturnal dyspnea, pleurisy, pleuritic pain, pneumonia, productive cough (sputum ), SOB, wheezing, other. Cardiovascular: Denies: chest pain, PHELPS (dyspnea on exer tion), edema, orthopnea, palpitations, parox nocturnal dyspnea, other. All systems rev neg: except as marked Objective General VS/I O: Vital Signs: Date Time Temp Pulse Resp B/P B/P Pulse O2 O2 Fl ow FiO2 Mean Ox Delivery Rate 12/07 1837 96 Nasal 4 36 cannula 12/07 1824 75 11 100 12/07 1815 75 11 100 12/07 1800 75 11 100 12/07 1745 75 26 93 12/07 1730 75 13 100 12/07 1715 75 18 99 12/07 1700 75 12 100 12/07 1645 75 11 100 12/07 1630 75 20 99 12/07 1615 75 10 100 12/07 1600 75 21 98 12/07 1545 75 16 100 12/07 1530 75 22 100 12/07 1515 75 15 100 12/07 1500 75 20 99 12/07 1445 75 12/07 1430 75 21 12/07 1415 75 100 / 1400 75 100 12/07 1345 75 100 12/07 1330 75 100 / 1315 75 100 / 1300 75 100 12/07 1245 75 99 12/07 1230 75 100 12/07 1215 75 100 / 1200 75 100 / 1145 75 25 100 / 1130 75 17 100 / 1115 75 25 100 / 1100 75 22 100 12/07 1045 75 19 100 12/07 1030 75 100 / 1015 75 19 100 / 1000 75 19 12/07 0945 75 19 100 12/07 0930 75 18 99 12/07 0915 75 100 12/07 0900 75 100 12/07 0845 75 100 12/07 0830 75 100 12/07 0815 75 100 12/07 0800 75 99 12/07 0745 75 100 12/07 0730 Nasal 5 cannula 12/07 0730 75 100 12/07 0729 98.3 75 22 100 Nasal 5 cannula 12/07 0715 75 23 100 12/07 0700 75 12 100 12/07 0645 75 23 100 12/07 0630 75 12 100 12/07 0626 75 13 100 12/07 0615 75 14 100 12/07 0600 75 18 100 12/07 0545 75 16 99 12/07 0530 75 14 99 12/07 0515 75 19 96 12/07 0500 75 17 12/07 0445 75 19 97 12/07 0430 96 12/07 0415 75 14 93 12/07 0400 75 15 94 12/07 0354 97.6 75 95 Open 70 mask/diffuser 12/07 0348 75 16 93 12/07 0330 75 15 93 12/07 0315 75 16 95 12/07 0300 75 15 96 12/07 0245 75 16 96 12/07 0230 75 16 97 12/07 0215 75 16 97 12/07 0200 75 16 96 12/07 0145 75 15 96 12/07 0130 75 15 96 12/07 0115 75 17 93 12/07 0103 96 Face mist 6 70 tent / 0100 75 15 93 12/07 0045 75 16 94 09/ 0030 75 16 94 12/07 0015 75 16 94 / 0000 75 15 94 12/06 2345 75 15 95 12/06 2330 75 15 95 12/06 2321 98.3 12/06 2321 Open 70 mask/diffuser 12/06 2315 75 24 92 12/06 2300 75 16 95 12/06 2245 75 15 95 12/06 2234 75 10 94 12/06 2230 75 94 12/06 2153 75 15 95 12/06 2145 75 10 96 12/06 2130 75 11 96 12/06 2115 75 97 12/066 97 Face mist 10 70 tent 12/06 2100 75 12/06 2045 75 15 97 12/06 2029 75 11 97 12/06 2014 75 15 97 12/07 1999 75 13 97 12/06 1945 75 14 96 12/06 1940 Ventilator 15 60 12/06 1940 97.9 75 16 101/63 75 100 Ventilator 1 5 60 12/06 1930 75 16 96 12/06 1915 75 15 24 hour I O ending at 0700: 12/07 0700 12/06 1900 Intake Total 1360.00 175.50 Output Total 2130 4015 Balance -770.00 -3839.50 Intake, IV 1230.00 175.50 Intake, Oral 130 Output, Chest 230 40 Tube Drainage Output, 1300 Estimated Blood Loss Output, Urine 1900 2675 Patient 118.636 kg Weight Weight Standing scale Measurement Method PATIENT WEIGHT: Weight (lb): 261 Weight (oz): 8.76 Weight (kg): 118.388 Medications: Active Meds + DC'd Last 24 Hrs Aspirin (ASPIRIN EC) 81 MG BEDTIME PO Insulin Glargine (Lantus/Semglee) 20 UNITS BEDTI ME SUBQ (UNV) Insulin Human Lispro (HumaLOG) LOW DOSE SLIDING SCALE AC HS SUBQ Dextrose/Water (DEXTROSE 50% IN WATER) 12.5 GM A SDIR PRN IV Dextrose/Water (DEXTROSE 50% IN WATER) 25 GM ASD IR PRN IV Clopidogrel Bisulfate (PLAVIX) 75 MG DAILY PO Famotidine (PEPCID) 20 MG BID PO [id number] Ethyl Esters (LOVAZA) 1 GM DAILY PO (CKD) Albumin Human (ALBUMINAR-25) 25 GM .STK-MED ONE Z (DC) Albumin Human (ALBUMINAR-5) 25 GM .STK-MED ONE Z (DC) Heparin Sodium (HEPARIN SODIUM) 20,000 UNITS .ST K-MED ONE Z (DC) Heparin Sodium (Porcine) (Heparin Sodium) 1,000 UNIT .STK-MED ONE Z (DC) Magnesium Sulfate (MAGNESIUM SULFATE 50%) 10 GM .STK-MED ONE Z (DC) Mannitol (OSMITROL 20%) 100 GM .STK-MED ONE Z (D C) Parenteral Electrolytes (PLASMA-LYTE A PH 7.4) 3 ,000 ML .STK-MED ONE Z ( DC) Potassium Chloride (POTASSIUM CHLORIDE) 60 MEQ . STK-MED ONE Z (DC) Sodium Bicarbonate (Sodium Bicarbonate) 50 MEQ . STK-MED ONE Z (DC) Sodium Chloride (SODIUM CHLORIDE 0.9%) 2,000 ML .STK-MED ONE Z (DC) Epinephrine (EPINEPHrine/NS 4MG/250ML) 250 ML CAT SWAMPER ONE IV (DC) Norepinephrine/Dextrose (NOREPINEPHRINE-D5W 4 MG /250 ML) 250 ML ONCALL ONE IV (CAN) Phenylephrine HCl (HARJINDER-SYNEPHRINE/NS 10MG/100ML) 100 ML ONCALL ONE IV ( DC) Tranexamic Acid (CYKLOKAPRON) 1,704.45 MG ONCALL ONE IV (DC) Sodium Chloride (SODIUM CHLORIDE 0.9%) 50 ML Tranexamic Acid (CYKLOKAPRON) 0.001 MG ONCALL ON E IV (DC) Sodium Chloride (SODIUM CHLORIDE 0.9%) 250 ML Atorvastatin Calcium (LIPITOR) 80 MG BEDTIME PO Cefuroxime Sodium (ZINACEF) 1.5 GM Q8H IV Famotidine (PEPCID) 20 MG BID IV (DC) Fenofibrate (TRICOR) 108 MG BEDTIME PO Mupirocin (BACTROBAN NASAL - ADULT ICU) 1 APPLIC BID NASAL Sodium Chloride (SODIUM CHLORIDE 0.9%) 20 ML Q8H IV (CKD) Levothyroxine Sodium (Synthroid) 125 MCG DAILY@0 630 PO Meperidine HCl (DEMEROL (C-II)) 25 MG Q4H PRN CO N IM Meperidine HCl (DEMEROL (C-II)) 50 MG Q4H PRN CO N IM Calcium Gluconate/Sodium Chloride (Calcium Gluco scott 1 GM/NS 100 mL) 100 ML ASDIR PRN IV Dobutamine HCl/Dextrose (DOBUTamine HCL IN DEXTR OSE) 250 ML ASDIR PRN IV Epinephrine (EPINEPHrine/NS 4MG/250ML) 250 ML DIR PRN IV Hydrocodone Bitart/Acetaminophen (NORCO 5/325 TA BLET (C-II)) 1 TAB Q4H PRN PRN PO Hydrocodone Bitart/Acetaminophen (NORCO 5/325 TA BLET (C-II)) 2 TAB Q4H PRN PRN PO Lidocaine HCl/Dextrose (Lidocaine 0.4% in D5w So ln) 500 ML ASDIR PRN IV (CKD) Magnesium Sulfate (MAG SULFATE 2GM PREMIX) 50 ML ASDIR PRN IV Magnesium Sulfate/Dextrose (Magnesium Sulfate) 1 00 ML ASDIR PRN IV Morphine Sulfate (morphine SULFATE (C-II)) 2 MG Q15M PRN PRN IV Nicardipine HCl (CARDENE I.V.) 25 MG ASDIR PRN I V (CKD) Sodium Chloride (SODIUM CHLORIDE 0.9%) 250 ML Ondansetron HCl (ZOFRAN) 4 MG Q8H PRN PRN IV Potassium Chloride (Potassium Chloride) 50 ML DIR PRN IV Potassium Chloride/Dextrose/Sod Cl (DEXTROSE 5%- 1/4NS-KCL 20MEQ) 1,000 ML .[id number] IV Dextrose/Water (DEXTROSE 50% IN WATER) 12.5 GM A SDIR PRN IV Dextrose/Water (DEXTROSE 50% IN WATER) 25 GM ASD IR PRN IV Insulin Human Regular (HUMULIN R) 100 UNIT ASDIR IV (CKD) Sodium Chloride (SODIUM CHLORIDE 0.9%) 100 ML Nicardipine HCl (CARDENE I.V.) 25 MG ASDIR PRN I V (CKD) Sodium Chloride (SODIUM CHLORIDE 0.9%) 250 ML Sodium Bicarbonate (Sodium Bicarbonate) 50 MEQ A SDIR PRN IV Acetaminophen (TYLENOL) 650 MG Q4H PRN PRN PO Magnesium Hydroxide (MILK OF MAGNESIA) 30 ML ASD IR PRN PO Zolpidem Tartrate (AMBIEN (C-IV)) 5 MG BEDTIME P RN PRN PO Physical Exam General appearance: obese, a lert, awake, no acute distress, mental status normal Head/Eyes: atraumatic, normal eyelids/periorb. ENT: moist mucosal membranes, normal dentition, Maynard gas catheter Cardiovascular: normal heart sounds, reg ular rate rhythm, no murmur, AV pacing Respiratory: chest tube (2 chest tubes), aerating well, clear to auscultation, symmetric expansion, no distress, Vent s ettings RR- 18 PEEP- 5 Peak Pressure - 16 Tidal volume - 524 FiO2- 60 Abdomen: non-tender, soft Genitourinary: urinary catheter Extremities: moves all, no clubbing, no cyanosis Neuro/CUTTER WOOD[employer] REEDS: no motor deficits Skin: dry, normal temperature Psychiatry: unable to evaluate Results Findings/Data: Laboratory Tests 12/07 12/07 12/07 12/07 12/07 1731 1408 1147 0926 0723 Chemistry POC Glucose (60 - 99 MG/DL) 103 H 155 H 157 H 1 97 H 162 H 12/07 12/07 12/07 12/07 12/07 0613 0406 0405 0332 0053 Chemistry Sodium (137 - 145 MMOL/L) 136 L Potassium (3.5 - 5.1 MMOL/L) 4.0 Chloride (98 - 107 MMOL/L) 105 Carbon Dioxide (22 - 30 MMOL/L) 28 Anion Gap (14 - 24 MMOL/L) 7 L BUN (9 - 20 MG/DL) 22 H Creatinine (0.66 - 1.25 MG/DL) 1.10 Glomerular Filtr Rate > 60 Glucose (74 - 106 MG/DL) 184 H POC Glucose (60 - 99 MG/DL) 194 H 178 H 156 H 1 74 H Calcium (8.4 - 10.2 MG/DL) 8.3 L Magnesium (1.6 - 2.3 MG/DL) 2.6 H 12/06 12/06 12/06 12/06 12/06 2319 2206 2115 2029 2021 Chemistry Sodium (137 - 145 MMOL/L) 140 Potassium (3.5 - 5.1 MMOL/L) 4.3 Chloride (98 - 107 MMOL/L) 109 H Carbon Dioxide (22 - 30 MMOL/L) 26 Anion Gap (14 - 24 MMOL/L) 9 L BUN (9 - 20 MG/DL) 28 H Creatinine (0.66 - 1.25 MG/DL) 1.30 H Glomerular Filtr Rate 55 Glucose (74 - 106 MG/DL) 142 H POC Glucose (60 - 99 MG/DL) 152 H 151 H 141 H 1 32 H Calcium (8.4 - 10.2 MG/DL) 8.6 Magnesium (1.6 - 2.3 MG/DL) 3.5 H Laboratory Tests 12/06 2030 Coagulation INR (0.86 - 1.14) 1.0 APTT (26.2 - 35.4 SECONDS) 33.4 PT Patient/Control Mix (9.4 - 12.7 SECONDS) 11. 8 Laboratory Tests 12/07 12/06 0405 2030 Hematology WBC (3.8 - 9.8 K/MM3) 13.1 H 11.3 H RBC (3.95 - 5.67 M/MM3) 3.91 L 4.07 Hgb (12.4 - 16.7 G/DL) 11.8 L 12.3 L Hct (35.9 - 49.5 %) 35.5 L 36.5 MCV (81.7 - 96.1 fL) 91 90 MCH (27.6 - 33.2 pg) 30.2 30.2 MCHC (32.9 - 35.5 %) 33.2 33.7 RDW (12.1 - 15.2 %) 13.0 12.8 Plt Count (129 - 368 K/MM3) 129 125 L MPV (7.4 - 10.4 fl) 10.2 10.2 Neut % (Auto) (43 - 75 %) 82.9 H 83.1 H Lymph % (Auto) (14 - 44 %) 9.4 L 9.0 L [place] % (Auto) (4 - 13 %) 7.1 7.1 Eos % (Auto) (0 - 6 %) 0.0 0.1 Baso % (Auto) (0 - 2 %) 0.2 0.3 Neut # (Auto) (2.0 - 7.6 K/mm3) 10.89 H 9.43 H Lymph # (Auto) (1.0 - 3.8 K/mm3) 1.23 1.02 [place] # (Auto) (0.1 - 0.8 K/mm3) 0.93 H 0.81 H Eos # (Auto) (0.0 - 0.2 K/mm3) 0.00 0.01 Baso # (Auto) (0.0 - 0.2 K/mm3) 0.02 0.03 Immature Gran % (0.0 - 2.0 %) 0.4 0.4 Nucleated RBC % (0 - 1.0 %) 0.0 0.0 Nucleated RBCs # (Man) (0.0 - 0.1 K/mm3) 0.00 0 .00 Radiology data: Recent Impressions: RADIOLOGY - XR CHEST 1V 12/07 629 Report Impression - Status: SIGNED Entered: 12/07/2021721 IMPRESSION: Single AP view of the chest is provided. Endotra cheal tube has been removed. Other support lines and tubes are simil ar. Cardiomegaly with vascular congestion persists. Trace effusions ar e unchanged. There is no pneumothorax. No additional interval change. Impression By: [email or web address] - Tobi Richard MD Free Text Obj Notes Free Text Obj Notes: physical exam limited, patient intubated post-op Diagnosis, Assessment Plan Problem List/A P: 1. S/P AVR (aortic valve replacement) 2. S/P CABG x 4 3. DM2 (diabetes mellitus, type 2) 4. HTN (hypertension), benign 5. Thoracic aortic aneurysm, without rupture Free Text DxA P Notes Free text DxA P notes: POD#1, pt extubated and doing well, post-op pain well controlled. BP stable and he will be weaned off insulin gtt tonight. pt started on full liquid diet - Continue asa, plavix, and statin - Will initiate low dose basal insulin lantus 2 0 units tonight - Pt currently on AV pacing, will hold BB for n ow. - Anticoagulation per Kevin Sudhir DVt/GI prophylaxis Will continue to follow Quality: [facility] Crit [facility] VTE Prophylaxis VTE prophylaxis initiated: yes Current Medications Current medication review: I attest that the foregoing medication list in [facility] medical record is true, accurate, and complete to the best of my knowled ge. Electronically Signed by Faustino Mercado MD on at 1915 RPT #:[id number] END OF REPORT 2021-12-07 18:51:00-00:00 [facility] ([facility]) Brief Op Note REPORT#:[id number] REPORT STATUS: Signed DATE:12/07/21 TIME: 1850 PATIENT: GARCÍA MARRERO UNIT #: [id number] ROOM/BED: [facility]-A : 55 AGE: 66 SEX: M ATTEND: Ady Aragon MD ADM AUTHOR: Irene Gonzalez * ALL edits or amendments must be made on the [employer] document * Op/Inv Proc Note - Brief Pre-procedure diagnosis: Coronary artery disease Severe aortic stenosis Post-procedure diagnosis: same as pre procedure dx Procedures performed: ACB x 4: JEFFERSON-Diagonal, SVG- LAD, LPDA and RCA Aortic valve replacement with #21mm Mirza Insp iris bioprosthetic valve EVH of the right leg SVG' Insertion of right subclavia n central line and left femoral arterial line using sonosite US guidance Primary Surgeon: Wil Aragon Bonsai Tender(s): GREGORY West DPM, PGY2 Anesthesiologist: Dr. Gee Anesthesia: general anesthesia Findings: See detailed op report Complications: none Estimated blood loss in ml's: 1300cc Specimens removed/altered: aortic valve leaflets Drain(s): Mina Catheter Placed Tube(s): Chest tubes x 2 Approach: open Wound class: clean Disposition: ICU, stable at 1855 at 1018 RPT #:[id number] END OF REPORT 2021-12-07 06:16:00-00:00 [facility] ([facility] Cardiology Progress Note REPORT#:[id number] REPORT STATUS: Signed DATE:12/07/21 TIME: 615 PATIENT: GARCÍA MARRERO UNIT #: [id number] ROOM/BED: SI02-A : 55 AGE: 66 SEX: M ATTEND: Ady Aragon MD ADM AUTHOR: Aidee Armstrong MD * ALL edits or amendments must be made on the [employer] document * Subjective HPI: 66year old male with h/o CAD, , now s/p ACB, A VR. No c/o chest pain, palpitations, dyspnea. Objective General VS/I O: 24 hour I O ending at 0700: 12/07 0700 12/06 1900 Intake Total 1360.00 175.50 Output Total 2130 4015 Balance -770.00 -3839.50 Intake, IV 1230.00 175.50 Intake, Oral 130 Output, Chest 230 40 Tube Drainage Output, 1300 Estimated Blood Loss Output, Urine 1900 2675 Patient 118.636 kg Weight Weight Standing scale Measurement Method Vital Signs: Date Time Temp Pulse Resp B/P B/P Pulse O2 O2 Fl ow FiO2 Mean Ox Delivery Rate 12/07 0615 75 14 100 12/07 0600 75 18 100 12/07 0545 75 16 99 12/07 0530 75 14 99 12/07 0515 75 19 96 12/07 0500 75 17 12/07 0445 75 19 97 12/07 0430 96 12/07 0415 75 14 93 12/07 0400 75 15 94 12/07 0354 97.6 75 95 Open 70 mask/diffuser 12/07 0348 75 16 93 12/07 0330 75 15 93 12/07 0315 75 16 95 12/07 0300 75 15 96 12/07 0245 75 16 96 12/07 0230 75 16 97 12/07 0215 75 16 97 12/07 0200 75 16 96 12/07 0145 75 15 96 12/07 0130 75 15 96 12/07 0115 75 17 93 12/07 0103 96 Face mist 6 70 tent 12/07 0100 75 15 93 12/07 0045 75 16 94 12/07 0030 75 16 94 12/07 0015 75 16 94 12/07 0000 75 15 94 12/06 2345 75 15 95 12/06 2330 75 15 95 12/06 2321 98.3 12/06 2321 Open 70 mask/diffuser 12/06 2315 75 24 92 12/06 2300 75 16 95 12/06 2245 75 15 95 12/06 2234 75 10 94 12/06 2230 75 94 12/06 2153 75 15 95 12/06 2145 75 10 96 12/06 2130 75 11 96 12/06 2115 75 97 12/066 97 Face mist 10 70 tent 12/06 2100 75 12/06 2044 75 15 97 12/06 2029 75 11 97 12/06 2014 75 15 97 12/07 1999 75 13 97 12/06 1945 75 14 96 12/06 1940 Ventilator 15 60 12/06 1940 97.9 75 16 101/63 75 100 Ventilator 1 5 60 12/06 1930 75 16 96 12/06 1915 75 15 12/06 1900 75 15 95 12/06 1825 15 12/06 1815 75 98 12/06 1808 75 4 99 12/06 1800 98.0 12/06 1800 75 98 12/06 1745 75 97 12/06 1730 Ventilator 100 12/06 1730 75 23 98 12/06 1730 98.5 78 18 98 Ventilator 100 12/06 1716 75 12/06 1715 75 97 100 12/06 0630 97.4 50 20 198/98 100 Room air PATIENT WEIGHT: Weight (lb): 261 Weight (oz): 8.76 Weight (kg): 118.636 Medications: Active Meds + DC'd Last 24 Hrs Aspirin (ASPIRIN EC) 81 MG BEDTIME PO Clopidogrel Bisulfate (PLAVIX) 75 MG DAILY PO [id number] Ethyl Esters (LOVAZA) 1 GM DAILY PO (CKD) Epinephrine (EPINEPHrine/NS 4MG/250ML) 250 ML CAT SWAMPER ONE IV (DC) Norepinephrine/Dextrose (NOREPINEPHRINE-D5W 4 MG /250 ML) 250 ML ONCALL ONE IV (CAN) Phenylephrine HCl (HARJINDER-SYNEPHRINE/NS 10MG/100ML) 100 ML ONCALL ONE IV ( DC) Tranexamic Acid (CYKLOKAPRON) 1,704.45 MG ONCALL ONE IV (DC) Sodium Chloride (SODIUM CHLORIDE 0.9%) 50 ML Tranexamic Acid (CYKLOKAPRON) 0.001 MG ONCALL ON E IV (DC) Sodium Chloride (SODIUM CHLORIDE 0.9%) 250 ML Atorvastatin Calcium (LIPITOR) 80 MG BEDTIME PO Cefuroxime Sodium (ZINACEF) 1.5 GM Q8H IV Famotidine (PEPCID) 20 MG BID IV Fenofibrate (TRICOR) 108 MG BEDTIME PO Mupirocin (BACTROBAN NASAL - ADULT ICU) 1 APPLIC BID NASAL Sodium Chloride (SODIUM CHLORIDE 0.9%) 20 ML Q8H IV (CKD) Aspirin (CHILDREN'S ASPIRIN) 162 MG ONCE ONE PO (DC) Levothyroxine Sodium (Synthroid) 125 MCG DAILY@0 630 PO Cefuroxime Sodium (ZINACEF) 1.5 GM Q8H IV (DC) Meperidine HCl (DEMEROL (C-II)) 25 MG Q4H PRN CO N IM Meperidine HCl (DEMEROL (C-II)) 50 MG Q4H PRN CO N IM Dextrose/Water (DEXTROSE 50% IN WATER) 12.5 GM A SDIR PRN IV (CAN) Dextrose/Water (DEXTROSE 50% IN WATER) 25 GM ASD IR PRN IV (CAN) Calcium Gluconate/Sodium Chloride (Calcium Gluco scott 1 GM/NS 100 mL) 100 ML ASDIR PRN IV Dobutamine HCl/Dextrose (DOBUTamine HCL IN DEXTR OSE) 250 ML ASDIR PRN IV Epinephrine (EPINEPHrine/NS 4MG/250ML) 250 ML DIR PRN IV Hydrocodone Bitart/Acetaminophen (NORCO 5/325 TA BLET (C-II)) 1 TAB Q4H PRN PRN PO Hydrocodone Bitart/Acetaminophen (NORCO 5/325 TA BLET (C-II)) 2 TAB Q4H PRN PRN PO Lidocaine HCl/Dextrose (Lidocaine 0.4% in D5w So ln) 500 ML ASDIR PRN IV (CKD) Magnesium Sulfate (MAG SULFATE 2GM PREMIX) 50 ML ASDIR PRN IV Magnesium Sulfate/Dextrose (Magnesium Sulfate) 1 00 ML ASDIR PRN IV Morphine Sulfate (morphine SULFATE (C-II)) 2 MG Q15M PRN PRN IV Nicardipine HCl (CARDENE I.V.) 25 MG ASDIR PRN I V (CKD) Sodium Chloride (SODIUM CHLORIDE 0.9%) 250 ML Ondansetron HCl (ZOFRAN) 4 MG Q8H PRN PRN IV Potassium Chloride (Potassium Chloride) 50 ML DIR PRN IV Potassium Chloride/Dextrose/Sod Cl (DEXTROSE 5%- 1/4NS-KCL 20MEQ) 1,000 ML .[id number] IV Sodium Bicarbonate (Sodium Bicarbonate) 0 .STK-M ED ONE .ROUTE (DC) Diphenhydramine HCl (BENADRYL) 0 .STK-MED ONE .R OUTE (DC) Famotidine (PEPCID) 0 .STK-MED ONE .ROUTE (DC) Dextrose/Water (DEXTROSE 50% IN WATER) 12.5 GM A SDIR PRN IV Dextrose/Water (DEXTROSE 50% IN WATER) 25 GM ASD IR PRN IV Insulin Human Regular (HUMULIN R) 100 UNIT ASDIR IV (CKD) Sodium Chloride (SODIUM CHLORIDE 0.9%) 100 ML Nicardipine HCl (CARDENE I.V.) 25 MG ASDIR PRN I V (CKD) Sodium Chloride (SODIUM CHLORIDE 0.9%) 250 ML Sodium Bicarbonate (Sodium Bicarbonate) 50 MEQ A SDIR PRN IV Vecuronium [place] (NORCURON) 0 .STK-MED ONE .RO FLANDREAU (DC) Heparin Sodium (Porcine) (Heparin Sodium) 0 .STK -MED ONE .ROUTE (DC) Atropine Sulfate (ATROPINE SULFATE) 0 .STK-MED O NE .ROUTE (DC) Glycopyrrolate (ROBINUL IJ) 0 .STK-MED ONE .ROUT E (DC) Insulin Human Regular (HUMULIN R) 0 .STK-MED ONE .ROUTE (DC) Cardioplegic Solution (PLEGISOL) 6,000 ML .STK-M ED ONE IV (DC) Gentamicin Sulfate/Sodium Chloride (GENTAMICIN S ULFATE IN NS) 50 ML .STK-MED ONE IV (DC) Heparin Sodium/Sodium Chloride (HEPARIN 1000 UNI TS/NS 500ML) 500 ML .STK-MED ONE IV (DC) Bupivacaine HCl (SENSORCAINE 0.5%) 0 .STK-MED ON E .ROUTE (DC) Papaverine HCl (PAPAVERINE HCL) 0 .STK-MED ONE . ROUTE (DC) Phenylephrine HCl (HARJINDER-SYNEPHRINE/NS 10MG/100ML) 100 ML .STK-MED ONE IV (DC) Protamine Sulfate (PROTAMINE SULFATE) 0 .STK-MED ONE .ROUTE (DC) Protamine Sulfate (PROTAMINE SULFATE) 0 .STK-MED ONE .ROUTE (DC) Succinylcholine Chloride (Quelicin) 0 .STK-MED O NE .ROUTE (DC) Lidocaine HCl (XYLOCAINE 2%) 0 .STK-MED ONE .ROU TE (DC) Lidocaine HCl (XYLOCAINE 1%) 0 .STK-MED ONE IV ( DC) Epinephrine (EPINEPHrine/NS 4MG/250ML) 250 ML CAT SWAMPER ONE IV (DC) Norepinephrine/Dextrose (NOREPINEPHRINE-D5W 4 MG /250 ML) 250 ML ONCALL ONE IV (DC) Phenylephrine HCl (HARJINDER-SYNEPHRINE/NS 10MG/100ML) 100 ML ONCALL ONE IV ( DC) Tranexamic Acid (CYKLOKAPRON) 1,704.45 MG ONCALL ONE IV (CAN) Sodium Chloride (SODIUM CHLORIDE 0.9%) 50 ML Tranexamic Acid (CYKLOKAPRON) 0.001 MG ONCALL ON E IV (DC) Sodium Chloride (SODIUM CHLORIDE 0.9%) 250 ML Calcium Chloride (CALCIUM CHLORIDE) 0 .STK-MED O NE .ROUTE (DC) Fentanyl Citrate (Fentanyl 1,000 Mcg/20 Ml Vial) 0 .STK-MED ONE .ROUTE ( DC) Midazolam HCl (VERSED (C-IV)) 0 .STK-MED ONE .RO FLANDREAU (DC) Vecuronium [place] (NORCURON) 0 .STK-MED ONE .RO FLANDREAU (DC) Heparin Sodium (Porcine) (Heparin Sodium) 0 .STK -MED ONE .ROUTE (DC) Propofol (DIPRIVAN) 0 .STK-MED ONE .ROUTE (DC) Cefuroxime Sodium (ZINACEF) 0 .STK-MED ONE .ROUT E (DC) Acetaminophen (TYLENOL) 650 MG Q4H PRN PRN PO Cefuroxime Sodium (ZINACEF) 1.5 GM ONCALL IV (DC ) Magnesium Hydroxide (MILK OF MAGNESIA) 30 ML ASD IR PRN PO Potassium Chloride/Dextrose/Sod Cl (DEXTROSE 5%- 1/4NS-KCL 20MEQ) 1,000 ML ONCALL IV (DC) Tranexamic Acid (CYKLOKAPRON) 1,700 MG ONCALL IV (DC) Sodium Chloride (SODIUM CHLORIDE 0.9%) 50 ML Tranexamic Acid (CYKLOKAPRON) 3,400 MG ONCALL IV (DC) Sodium Chloride (SODIUM CHLORIDE 0.9%) 250 ML Zolpidem Tartrate (AMBIEN (C-IV)) 5 MG BEDTIME P RN PRN PO Tranexamic Acid (CYKLOKAPRON) 1,700 MG ONCALL IV (DC) Sodium Chloride (SODIUM CHLORIDE 0.9%) 50 ML Tranexamic Acid (CYKLOKAPRON) 3,400 MG ONCALL ON E IV (DC) Sodium Chloride (SODIUM CHLORIDE 0.9%) 250 ML Physical Exam General appearance: alert, awake, oriented Head/Eyes: atraumatic, normocephalic ENT: moist mucosal membranes Neck: no JVD Cardiovascular: CV assessment: regular rate and rhythm Respiratory: clear to auscultation, no distress Lower extremity: LE assessment: no edema Musculoskeletal: full range of motion Neuro/CUTTER WOODWIND REEDS: alert, oriented X 3, CN II-XII intact Skin: dry, intact Psychiatry: normal affect, normal judgment/insig ht, normal mood Results Findings/Data: Laboratory Tests 12/06 12/06 12/06 12/06 1700 1618 1520 1453 Blood Gas Puncture Site AL O2 Saturation (92.0 - 98.5 %) 99.4 H 100.0 H 10 0.0 H ABG pH (7.35 - 7.45 mmHg) 7.38 7.335 L 7.368 7. 413 ABG pCO2 (35.0 - 45.0 mmHg) 35.1 43.7 44.1 43.4 ABG pO2 (80.0 - 100.0 mmol/L) 106.4 H 163.8 H 4 21.8 *H 507.1 *H ABG HCO3 (20.0 - 26.0 mmol/L) 20.3 23.3 25.4 27 .7 H ABG O2 Saturation (95.0 - 100.0 %) 97.8 ABG Base Excess (-3.0 - 3.0 mmol/L) -4.0 L -2.5 -0.1 2.8 Gutierrez Test (CHECK) NA Sodium (135 - 141 MMOL/L) 143 H 141 142 H Potassium (3.7 - 4.7 MMOL/L) 4.4 5.1 H 4.9 H Chloride (MEQ/L) 109 108 108 Ionized Calcium (1.13 - 1.32 MMOL/L) 1.27 1.16 1.17 Temperature (37 C) 37.0 O2 Delivery Device VENT Vent Mode A/C Vent Rate (/MIN) 12.0 FiO2 (%) 100 Tidal Volume (ml) 500.0 PEEP (cmH2O) 5.0 Instrument (Specimen Descript) Arterial Arteria l Arterial 12/06 12/06 12/06 12/06 1421 1352 1252 1222 Blood Gas O2 Saturation (92.0 - 98.5 %) 100.0 H 100.0 H 1 00.0 H 100.0 H ABG pH (7.35 - 7.45) 7.407 7.397 7.316 L 7.361 ABG pCO2 (35.0 - 45.0 mmHg) 40.3 40.5 51.4 *H 5 0.5 *H ABG pO2 (75.0 - 100.0) 397.4 *H 439.2 *H 482.0 *H 552.3 *H ABG HCO3 (20.0 - 26.0 MMOL/L) 25.3 24.9 26.2 H 28.6 *H ABG Base Excess (-3.0 - 3.0 MMOL/L) 0.6 0.1 -0. 3 2.6 Sodium (135 - 141 MMOL/L) 141 141 140 140 Potassium (3.7 - 4.7 MMOL/L) 4.9 H 4.3 4.0 4.0 Chloride (MEQ/L) 109 108 107 103 Ionized Calcium (1.13 - 1.32 MMOL/L) 1.19 1.17 1.21 1.02 L Instrument (Specimen Descript) Arterial Arteria l Arterial Arterial 12/06 12/06 12/06 1132 1019 0835 Blood Gas O2 Saturation (92.0 - 98.5 %) 100.0 H 100.0 H 95.7 ABG pH (7.35 - 7.45) 7.349 L 7.406 7.414 ABG pCO2 (35.0 - 45.0 mmHg) 46.3 H 39.5 37.3 ABG pO2 (75.0 - 100.0) 428.0 *H 361.4 *H 78.3 ABG HCO3 (20.0 - 26.0 MMOL/L) 25.5 24.8 23.8 ABG Base Excess (-3.0 - 3.0 MMOL/L) -0.5 0.1 - 0.5 Sodium (135 - 141 MMOL/L) 140 142 H 141 Potassium (3.7 - 4.7 MMOL/L) 4.3 4.0 3.8 Chloride (MEQ/L) 108 108 107 Ionized Calcium (1.13 - 1.32 MMOL/L) 1.21 1.22 1.21 Instrument (Specimen Descript) Arterial Arteria l Arterial Laboratory Tests 12/07 12/07 12/07 12/07 12/07 0613 0406 0405 0332 0053 Chemistry Sodium (137 - 145 MMOL/L) 136 L Potassium (3.5 - 5.1 MMOL/L) 4.0 Chloride (98 - 107 MMOL/L) 105 Carbon Dioxide (22 - 30 MMOL/L) 28 Anion Gap (14 - 24 MMOL/L) 7 L BUN (9 - 20 MG/DL) 22 H Creatinine (0.66 - 1.25 MG/DL) 1.10 Glomerular Filtr Rate > 60 Glucose (74 - 106 MG/DL) 184 H POC Glucose (60 - 99 MG/DL) 194 H 178 H 156 H 1 74 H Calcium (8.4 - 10.2 MG/DL) 8.3 L Magnesium (1.6 - 2.3 MG/DL) 2.6 H 12/06 12/06 12/06 12/06 12/06 2319 2206 5 2029 2021 Chemistry Sodium (137 - 145 MMOL/L) 140 Potassium (3.5 - 5.1 MMOL/L) 4.3 Chloride (98 - 107 MMOL/L) 109 H Carbon Dioxide (22 - 30 MMOL/L) 26 Anion Gap (14 - 24 MMOL/L) 9 L BUN (9 - 20 MG/DL) 28 H Creatinine (0.66 - 1.25 MG/DL) 1.30 H Glomerular Filtr Rate 55 Glucose (74 - 106 MG/DL) 142 H POC Glucose (60 - 99 MG/DL) 152 H 151 H 141 H 1 32 H Calcium (8.4 - 10.2 MG/DL) 8.6 Magnesium (1.6 - 2.3 MG/DL) 3.5 H 12/06 12/06 12/06 12/06 12/06 1910 1815 1707 1618 1616 Chemistry Sodium (137 - 145 MMOL/L) 138 Potassium (3.5 - 5.1 MMOL/L) 4.4 Chloride (98 - 107 MMOL/L) 111 H Carbon Dioxide (22 - 30 MMOL/L) 23 Anion Gap (14 - 24 MMOL/L) 8 L BUN (9 - 20 MG/DL) 28 H Creatinine (0.66 - 1.25 MG/DL) 1.30 H Glomerular Filtr Rate 55 Glucose (74 - 106 MG/DL) 130 H POC Glucose (60 - 99 MG/DL) 124 H 126 H 108 H 1 24 H POC Lactic Acid (0.7 - 2.0 mmol/L) 1.13 Calcium (8.4 - 10.2 MG/DL) 8.8 12/06 12/06 12/06 12/06 12/06 1520 1453 1421 1352 1252 Chemistry POC Glucose (60 - 99 MG/DL) 124 H 115 H 120 H 1 26 H 133 H POC Lactic Acid (0.7 - 2.0 mmol/L) 0.73 1.35 0 .75 0.49 L 0.68 L 12/06 12/06 12/06 12/06 12/06 1222 1132 1019 0835 0801 Chemistry POC Glucose (60 - 99 MG/DL) 131 H 139 H 101 H 1 15 H 117 H POC Lactic Acid (0.7 - 2.0 mmol/L) 1.07 0.95 0. 40 L 0.60 L Laboratory Tests 12/06 12/06 2030 1616 Coagulation INR (0.86 - 1.14) 1.0 1.2 H APTT (26.2 - 35.4 SECONDS) 33.4 34.9 PT Patient/Control Mix (9.4 - 12.7 SECONDS) 11. 8 14.1 H Laboratory Tests 12/07 12/06 12/06 0405 2030 1616 Hematology WBC (3.8 - 9.8 K/MM3) 13.1 H 11.3 H 14.1 H RBC (3.95 - 5.67 M/MM3) 3.91 L 4.07 3.45 L Hgb (12.4 - 16.7 G/DL) 11.8 L 12.3 L 10.4 L Hct (35.9 - 49.5 %) 35.5 L 36.5 31.5 L MCV (81.7 - 96.1 fL) 91 90 91 MCH (27.6 - 33.2 pg) 30.2 30.2 30.1 MCHC (32.9 - 35.5 %) 33.2 33.7 33.0 RDW (12.1 - 15.2 %) 13.0 12.8 12.8 Plt Count (129 - 368 K/MM3) 129 125 L 138 MPV (7.4 - 10.4 fl) 10.2 10.2 10.3 Neut % (Auto) (43 - 75 %) 82.9 H 83.1 H 70.5 Lymph % (Auto) (14 - 44 %) 9.4 L 9.0 L 23.7 [place] % (Auto) (4 - 13 %) 7.1 7.1 4.3 Eos % (Auto) (0 - 6 %) 0.0 0.1 0.6 Baso % (Auto) (0 - 2 %) 0.2 0.3 0.3 Neut # (Auto) (2.0 - 7.6 K/mm3) 10.89 H 9.43 H 9.91 H Lymph # (Auto) (1.0 - 3.8 K/mm3) 1.23 1.02 3.33 [place] # (Auto) (0.1 - 0.8 K/mm3) 0.93 H 0.81 H 0 .61 Eos # (Auto) (0.0 - 0.2 K/mm3) 0.00 0.01 0.08 Baso # (Auto) (0.0 - 0.2 K/mm3) 0.02 0.03 0.04 Immature Gran % (0.0 - 2.0 %) 0.4 0.4 0.6 Nucleated RBC % (0 - 1.0 %) 0.0 0.0 0.0 Nucleated RBCs # (Man) (0.0 - 0.1 K/mm3) 0.00 0 .00 0.00 Laboratory Tests 12/07 12/06 0405 2030 Chemistry Magnesium (1.6 - 2.3 MG/DL) 2.6 H 3.5 H Laboratory Tests 12/06 12/06 2030 1616 Coagulation APTT (26.2 - 35.4 SECONDS) 33.4 34.9 Radiology data: Recent Impressions: RADIOLOGY - XR CHEST 1V 12/06 1700 Report Impression - Status: SIGNED Entered: 12/06/2021 6130 IMPRESSION: 1. Visualized support tubes and catheters projec t in satisfactory position. 2. Significant widening of the mediastinum is co nsistent with recent surgery. Clinical follow-up with serial chest x- ray recommended. 3. Mild bilateral central interstitial infiltrat es. Impression By: Sophy Simon M.D. Diagnosis, Assessment Plan Hospital course to date: IMP: CAD s/p ACB X 4 Aortic Stenosis - severe s/p AVR with #21 bio Mirza. DM HTN HLP PLAN: Home medications Ambulate. at 1617 RPT #:[id number] END OF REPORT 2021-12-07 05:33:00-00:00 [id number] [address] PATIENT NAME: GARCÍA MARRERO ADMIT DATE: 11/17 04/08 ACCOUNT NO: [id number] ROOM NO: [facility] AGE: 66 REPORT TYPE: ELECTROCARDIOGRAM SEX: M ADMITTING PHYSICIAN:Wil Aragon MD ATTENDING PHYSICIAN:Wil Aragon MD Order: [id number] Test Reason : CAD post CAB Test Date/Time Stamp: SatDec 07 2021 05:33:08 Blood Pressure : / mmHG Vent. Rate : 076 BPM Atrial Rate : 076 BPM P-R Int : 064 ms QRS Dur : 164 ms QT Int : 486 ms P-R-T Axes : -04 -64 107 degree s QTc Int : 546 ms AV sequential or dual chamber electronic pacemak er When compared with ECG of 06-DEC-2021 07:21, Electronic ventricular pacemaker has replaced Si nus rhythm Vent. rate has increased BY 29 BPM Confirmed by SHAHID JENSEN ([id number]) on 12/07/2021 8:09:25 AM Referred By: Wil Aragon Confirmed by:SHAHID LUNDBERG at 0809 PATIENT NAME: GARCÍA MARRERO [id number] 2021-12-06 19:16:00-00:00 [facility] ([facility] Hospitalist Consultation REPORT#:[id number] REPORT STATUS: Signed DATE:12/06/21 TIME: 1915 PATIENT: GARCÍA MARRERO UNIT #: [id number] [address] AGE: 66 SEX: M ATTEND: Ady Aragon MD ADM AUTHOR: Anika Broderick MD R1 * ALL edits or amendments must be made on the [employer]/computer document * Malik Broderickmal 12/06/21 191: History of Present Illness Requesting Clinician: Dr. Aragon Reason for consult: medical management Chief complaint: s/p coronary artery bypass x 4, aortic valve carlos cement PCP: PCP: Golden Awad MD HPI: The patient is a 66 year old male with P MH of CAD, HTN, DM2, and severe aortic stenosis who is presenting a fter CABG x4 and AVR surgery with Dr. Aragon today. There were no intraoperative complications. The patient is currently still intubated, but is awake and following commands. He denies experiencing any pain currently but expresses discomfort with the ET t ube. History - Adult longitudinal Past medical history: Reports: Coronary artery disease, Diabetes melli tus, Hypertension. Additional surgical history: Bilateral knee surgery. Right nasal/facial surgery. Additional family history: Mother o heart disease. Father of alcoholic cirrhosis. Alcohol use: Denies EtOH use Drug use: Denies recreational drugs Smoking status for patients 13 years old or olde r: Never Smoker Other social history: Employed Additional social history: ; one daughter. Medications: Home Medications: Medication Dose/Rte/Freq Days Qty Entered Last Max Daily Dose Reviewed ASPIRIN EC (ECOTRIN) 81 MG PO BEDTIME 01/09/19 Strength: 81 MG TAB.EC 1511 LEVOTHYROXINE 125 MCG PO DAILY 01/09/19 (LEVOTHROID) 1513 Strength: 125 MCG TAB ASCORBIC ACID (VITAMIN C) 1,000 MG PO DAILY Strength: 1,000 MG TAB 1513 QUINAPRIL (ACCUPRIL) 40 MG PO BID 01/09/19 Strength: 40 MG TAB 1513 1 EACH PO DAILY 11/25/21 MULTIVITAMIN/MIN/IRON/FA/CA /LYCOPENE (CENTRUM ULTRA MEN'S) 0654 Strength: 8 MG IRON-200 MCG-600 MCG TAB OMEGA-3 FATTY 350 MG PO DAILY 11/25/21 ACIDS/FISH OIL 340/1000 0659 MG (FISH OIL/OMEGA-3 1000/340 MG) Strength: 340 MG-1,000 MG CAPSULE DME - GLUCOSE LANCETS 11/29/21 (GLUCOSE LANCETS) 1204 Strength: 1 ITEM EACH DME - GLUCOSE METER 11/29/21 (GLUCOSE METER) 1204 Strength: 1 ITEM EACH DME - GLUCOSE STRIPS 11/29/21 (GLUCOSE STRIPS) 1204 Strength: 1 ITEM EACH DME - INSULIN SYRINGES 11/29/21 (INSULIN SYRINGES) 1204 Strength: 1 ITEM EACH DME - INSULIN PEN 11/29/21 NEEDLES 1204 (INSULIN PEN NEEDLES) Strength: 1 ITEM EACH INSULIN LISPRO 15 UNITS SUBQ AC 30 15 12/04/21 (HumaLOG KWIKPEN (3mL)) 1543 Strength: 100 UNIT/ML INSULN.PEN ROSUVASTATIN (CRESTOR) 40 MG PO BEDTIME 30 11/16 07/07 Strength: 40 MG TAB 1137 FENOFIBRATE (LOFIBRA) 108 MG PO BEDTIME 30 60 0 11/29/21 Strength: 54 MG TAB 1138 CARVEDILOL (COREG) 3.125 MG PO Q12HR 30 60 11/16 07/07 Strength: 3.125 MG TAB 1138 hydrALAZINE (APRESOLINE) 25 MG PO Q8HR 30 90 0 11/29/21 Strength: 25 MG TAB 1138 INSULIN GLARGINE 40 UNITS SUBQ 30 11/29/21 (LANTUS SOLOSTAR (15mL)) BEDTIME 1140 Strength: 100 UNIT/ML (3 ML) PEN.INJCTR INSULIN GLARGINE 50 UNITS SUBQ AC BK 30 2 (LANTUS SOLOSTAR (15mL)) 1140 Strength: 100 UNIT/ML (3 ML) PEN.INJCTR glipiZIDE (GLUCOTROL) 5 MG PO BID AC 30 60 11/16 07/07 Strength: 5 MG TAB 1141 Current Hospital Medications: Anti-Infective Agents Sig/Alex Start time Last Medication Dose Route Stop Time Status Admin Cefuroxime Sodium 1.5 GM Q8H 12/06 2100 AC 11/17 1 (ZINACEF) IV 12/08 1301 2015 Cefuroxime Sodium 1.5 GM Q8H 12/06 1800 DC (ZINACEF) IV 12/08 1001 Gentamicin Sulfate/ 50 ML .STK-MED ONE 12/06 10 40 DC Sodium Chloride IV (GENTAMICIN SULFATE IN NS) Cefuroxime Sodium 0 .STK-MED ONE 12/06 0736 DC (ZINACEF) .ROUTE Cefuroxime Sodium 1.5 GM ONCALL 12/06 0700 DC (ZINACEF) IV 12/06 1500 Antihistamine Drugs Sig/Alex Start time Last Medication Dose Route Stop Time Status Admin Diphenhydramine HCl 0 .STK-MED ONE 12/06 1537 D C (BENADRYL) .ROUTE Autonomic Drugs Sig/Alex Start time Last Medication Dose Route Stop Time Status Admin Epinephrine 250 ML ONCALL ONE 12/07 0700 AC (EPINEPHrine/NS 4MG/ IV 12/07 1314 250ML) Norepinephrine/ 250 ML ONCALL ONE 12/07 0700 AC Dextrose IV 12/07 1314 (NOREPINEPHRINE-D5W 4 MG/250 ML) Phenylephrine HCl 100 ML ONCALL ONE 12/07 0700 CKD (HARJINDER-SYNEPHRINE/NS IV 12/07 0701 10MG/100ML) Dobutamine HCl/ 250 ML ASDIR PRN 12/06 1655 AC Dextrose IV 01/05 1656 (DOBUTamine HCL IN DEXTROSE) Epinephrine 250 ML ASDIR PRN 12/06 1655 AC (EPINEPHrine/NS 4MG/ IV 01/05 1656 250ML) Vecuronium [place] 0 .STK-MED ONE 12/06 1225 DC (NORCURON) .ROUTE Atropine Sulfate 0 .STK-MED ONE 12/06 1109 DC (ATROPINE SULFATE) .ROUTE Glycopyrrolate 0 .STK-MED ONE 12/06 1109 DC (ROBINUL IJ) .ROUTE Phenylephrine HCl 100 ML .STK-MED ONE 12/06 103 9 DC (HARJINDER-SYNEPHRINE/NS IV 10MG/100ML) Succinylcholine 0 .STK-MED ONE 12/06 0912 DC Chloride .ROUTE (Quelicin) Epinephrine 250 ML ONCALL ONE 12/06 0805 DC (EPINEPHrine/NS 4MG/ IV 12/06 1419 250ML) Norepinephrine/ 250 ML ONCALL ONE 12/06 0805 DC Dextrose IV 12/06 1419 (NOREPINEPHRINE-D5W 4 MG/250 ML) Phenylephrine HCl 100 ML ONCALL ONE 12/06 0805 DC (HARJINDER-SYNEPHRINE/NS IV 12/06 1034 10MG/100ML) Vecuronium [place] 0 .STK-MED ONE 12/06 0756 DC (NORCURON) .ROUTE Blood Formation,Coagulation Sig/Alex Start time Last Medication Dose Route Stop Time Status Admin Clopidogrel Bisulfate 75 MG DAILY 12/07 09 AC (PLAVIX) PO 01/06 901 Tranexamic Acid 1,704.45 MG ONCALL ONE 12/07 07 00 AC (CYKLOKAPRON) IV 12/07 0740 Sodium Chloride 50 ML (SODIUM CHLORIDE 0.9%) Tranexamic Acid 0.001 MG ONCALL ONE 12/07 0700 AC (CYKLOKAPRON) IV 12/07 1314 Sodium Chloride 250 ML (SODIUM CHLORIDE 0.9%) Heparin Sodium 0 .STK-MED ONE 12/06 1125 DC (Porcine) .ROUTE (Heparin Sodium) Heparin Sodium/ 500 ML .STK-MED ONE 12/06 1040 DC Sodium Chloride IV (HEPARIN 1000 UNITS/ NS 500ML) Protamine Sulfate 0 .STK-MED ONE 12/06 1039 DC (PROTAMINE SULFATE) .ROUTE Protamine Sulfate 0 .STK-MED ONE 12/06 1039 DC (PROTAMINE SULFATE) .ROUTE Tranexamic Acid 1,704.45 MG ONCALL ONE 12/06 08 05 CAN (CYKLOKAPRON) IV 12/06 0845 Sodium Chloride 50 ML (SODIUM CHLORIDE 0.9%) Tranexamic Acid 0.001 MG ONCALL ONE 12/06 0805 DC (CYKLOKAPRON) IV 12/06 1419 Sodium Chloride 250 ML (SODIUM CHLORIDE 0.9%) Heparin Sodium 0 .STK-MED ONE 12/06 0755 DC (Porcine) .ROUTE (Heparin Sodium) Tranexamic Acid 1,700 MG ONCALL 12/06 0700 DC (CYKLOKAPRON) IV 12/06 2300 Sodium Chloride 50 ML (SODIUM CHLORIDE 0.9%) Tranexamic Acid 3,400 MG ONCALL 12/06 0700 DC (CYKLOKAPRON) IV 12/06 2300 Sodium Chloride 250 ML (SODIUM CHLORIDE 0.9%) Tranexamic Acid 1,700 MG ONCALL 12/06 0500 DC (CYKLOKAPRON) IV 12/06 0700 Sodium Chloride 50 ML (SODIUM CHLORIDE 0.9%) Tranexamic Acid 3,400 MG ONCALL ONE 12/06 0500 DC (CYKLOKAPRON) IV 12/06 0859 Sodium Chloride 250 ML (SODIUM CHLORIDE 0.9%) Cardiovascular Drugs Sig/Alex Start time Last Medication Dose Route Stop Time Status Admin Etsjq-0-Yrxt Ethyl 1 GM DAILY 12/07 09 CKD Esters PO 01/06 901 (LOVAZA) Atorvastatin Calcium 80 MG BEDTIME 12/06 2100 A C (LIPITOR) PO 01/05 2101 Fenofibrate 108 MG BEDTIME 12/06 2100 AC (TRICOR) PO 01/05 2101 Lidocaine HCl/ 500 ML ASDIR PRN 12/06 1655 CKD Dextrose IV 01/05 165 (Lidocaine 0.4% in D5w Soln) Nicardipine HCl 25 MG ASDIR PRN 12/06 1655 CKD (CARDENE I.V.) IV 01/05 165 Sodium Chloride 250 ML (SODIUM CHLORIDE 0.9%) Nicardipine HCl 25 MG ASDIR PRN 12/06 1315 CKD (CARDENE I.V.) IV 01/05 1316 Sodium Chloride 250 ML (SODIUM CHLORIDE 0.9%) Papaverine HCl 0 .STK-MED ONE 12/06 1039 DC (PAPAVERINE HCL) .ROUTE Lidocaine HCl 0 .STK-MED ONE 12/06 0815 DC (XYLOCAINE 2%) .ROUTE Lidocaine HCl 0 .STK-MED ONE 12/06 0811 DC (XYLOCAINE 1%) IV Central Nervous System Agents Sig/Alex Start time Last Medication Dose Route Stop Time Status Admin Aspirin 81 MG BEDTIME 12/07 2099 AC (ASPIRIN EC) PO 01/06 2101 Aspirin 162 MG ONCE ONE 12/06 1854 DC 12/06 (CHILDREN'S ASPIRIN) PO 12/06 185 1924 Meperidine HCl 25 MG Q4H PRN PRN 12/06 1705 AC (DEMEROL (C-II)) IM 01/05 165 Meperidine HCl 50 MG Q4H PRN PRN 12/06 1705 AC (DEMEROL (C-II)) IM 01/05 1656 Hydrocodone Bitart/ 1 TAB Q4H PRN PRN 12/06 165 5 AC Acetaminophen PO 01/05 165 (NORCO 5/325 TABLET (C-II)) Hydrocodone Bitart/ 2 TAB Q4H PRN PRN 12/06 165 5 AC Acetaminophen PO 01/05 165 (NORCO 5/325 TABLET (C-II)) Magnesium Sulfate/ 100 ML ASDIR PRN 12/06 1655 AC Dextrose IV 01/05 165 (Magnesium Sulfate) Morphine Sulfate 2 MG Q15M PRN PRN 12/06 1655 A C 12/06 (morphine SULFATE (C- IV 01/06 1656 1742 II)) Fentanyl Citrate 0 .STK-MED ONE 12/06 0756 DC (Fentanyl 1,000 Mcg/ .ROUTE 20 Ml Vial) Midazolam HCl 0 .STK-MED ONE 12/06 0756 DC (VERSED (C-IV)) .ROUTE Propofol 0 .STK-MED ONE 12/06 0755 DC (DIPRIVAN) .ROUTE Acetaminophen 650 MG Q4H PRN PRN 12/06 0700 AC (TYLENOL) PO 01/05 0701 Zolpidem Tartrate 5 MG BEDTIME PRN PRN 12/06 07 00 AC (AMBIEN (C-IV)) PO 01/05 0701 Electrolytic, Caloric, And Enrique Sig/Alex Start time Last Medication Dose Route Stop Time Status Admin Sodium Chloride 20 ML Q8H 12/06 2100 CKD 12/06 (SODIUM CHLORIDE IV 12/08 1301 2016 0.9%) Dextrose/Water 12.5 GM ASDIR PRN 12/06 1700 CAN (DEXTROSE 50% IN IV 01/05 1701 WATER) Dextrose/Water 25 GM ASDIR PRN 12/06 1700 CAN (DEXTROSE 50% IN IV 01/05 170 WATER) Calcium Gluconate/ 100 ML ASDIR PRN 12/06 1655 AC Sodium Chloride IV 01/05 1656 (Calcium Gluconate 1 GM/NS 100 mL) Potassium Chloride 50 ML ASDIR PRN 12/06 1655 AC (Potassium Chloride) IV 01/05 1656 Potassium Chloride/ 1,000 ML .[id number] 12/06 165 5 AC 12/06 Dextrose/Sod Cl IV 01/05 165 1743 (DEXTROSE 5%-1/4NS- KCL 20MEQ) Dextrose/Water 12.5 GM ASDIR PRN 12/06 1315 AC (DEXTROSE 50% IN IV 01/05 1316 WATER) Dextrose/Water 25 GM ASDIR PRN 12/06 1315 AC (DEXTROSE 50% IN IV 01/05 131 WATER) Cardioplegic Solution 6,000 ML .STK-MED ONE 1040 DC (PLEGISOL) IV Calcium Chloride 0 .STK-MED ONE 12/06 0756 DC (CALCIUM CHLORIDE) .ROUTE Potassium Chloride/ 1,000 ML ONCALL 12/06 0700 DC Dextrose/Sod Cl IV 12/06 1500 (DEXTROSE 5%-1/4NS- KCL 20MEQ) Gastrointestinal Drugs Sig/Alex Start time Last Medication Dose Route Stop Time Status Admin Famotidine 20 MG BID 12/06 2100 AC 12/06 (PEPCID) IV 01/05 Ondansetron HCl 4 MG Q8H PRN PRN 12/06 1655 AC (ZOFRAN) IV 01/05 1656 Sodium Bicarbonate 0 .STK-MED ONE 12/06 1621 DC (Sodium Bicarbonate) .ROUTE Famotidine 0 .STK-MED ONE 12/06 1537 DC (PEPCID) .ROUTE Sodium Bicarbonate 50 MEQ ASDIR PRN 12/06 1315 AC (Sodium Bicarbonate) IV 01/05 1316 Magnesium Hydroxide 30 ML ASDIR PRN 12/06 0700 AC (MILK OF MAGNESIA) PO 01/05 0701 Hormones And Synthetic Substit Sig/Alex Start time Last Medication Dose Route Stop Time Status Admin Levothyroxine Sodium 125 MCG DAILY@0630 12/06 1 830 AC (Synthroid) PO 01/05 1831 Insulin Human Regular 100 UNIT ASDIR 12/06 1315 CKD (HUMULIN R) IV 01/05 1316 Sodium Chloride 100 ML (SODIUM CHLORIDE 0.9%) Insulin Human Regular 0 .STK-MED ONE 12/06 1100 DC (HUMULIN R) .ROUTE Local Anesthetics (Parenteral) Sig/Alex Start time Last Medication Dose Route Stop Time Status Admin Bupivacaine HCl 0 .STK-MED ONE 12/06 1039 DC (SENSORCAINE 0.5%) .ROUTE Miscellaneous Therapeutic Agen Sig/Alex Start time Last Medication Dose Route Stop Time Status Admin Magnesium Sulfate 50 ML ASDIR PRN 12/06 1655 AC (MAG SULFATE 2GM IV 01/05 1656 PREMIX) Skin And Mucous Membrane Agent Sig/Alex Start time Last Medication Dose Route Stop Time Status Admin Mupirocin 1 APPLIC BID 12/06 2100 AC 12/06 (BACTROBAN NASAL - NASAL 12/11 ADULT ICU) Allergies: Coded Allergies: No Known Allergies (01/10/19) Occupation: [employer] employee. Review of Systems Unable to obtain due to: patient intubated Objective VS/I O Last Documented: Result Date Time Resp 15 12/06 1825 Pulse Ox 98 12/06 1815 Pulse 75 12/06 1815 Temp 36.7 12/06 1800 FiO2 100 12/06 1730 O2 Delivery Ventilator 12/06 1730 B/P 198/98 12/06 0630 General appearance: respiratory support, awake Head/Eyes: atraumatic, normal eyelids/periorb. ENT: intubated, Maynard gas catheter Cardiovascular: pacemaker, normal heart sounds, regular rate rhythm, no murmur Respiratory: chest tube (2 chest tubes), aerating well, clear to auscultation, symmetric expansion, no distress, Vent s ettings RR- 18 PEEP- 5 Peak Pressure - 16 Tidal volume - 524 FiO2- 60 Abdomen: non-tender, soft Genitourinary: urinary catheter Extremities: moves all, no clubbing, no cyanosis Neuro/CUTTER WOODWIND REEDS: no motor deficits Skin: dry, normal temperature Psychiatry: unable to evaluate Results Findings/Data: Laboratory Tests: 12/06 1910 1815 1707 1700 Blood Gas Puncture Site AL ABG pH (7.35 - 7.45 mmHg) 7.38 ABG pCO2 (35.0 - 45.0 mmHg) 35.1 ABG pO2 (80.0 - 100.0 mmol/L) 106.4 H ABG HCO3 (20.0 - 26.0 mmol/L) 20.3 ABG O2 Saturation (95.0 - 100.0 %) 97.8 ABG Base Excess (-3.0 - 3.0 mmol/L) -4.0 L Gutierrez Test (CHECK) NA Temperature (37 C) 37.0 O2 Delivery Device VENT Vent Mode A/C Vent Rate (/MIN) 12.0 FiO2 (%) 100 Tidal Volume (ml) 500.0 PEEP (cmH2O) 5.0 Chemistry POC Glucose (60 - 99 MG/DL) 132 H 124 H 126 H 1 08 H 12/06 12/06 12/06 1618 1616 1520 Blood Gas O2 Saturation (92.0 - 98.5 %) 99.4 H 100.0 H ABG pH (7.35 - 7.45) 7.335 L 7.368 ABG pCO2 (35.0 - 45.0 mmHg) 43.7 44.1 ABG pO2 (75.0 - 100.0) 163.8 H 421.8 *H ABG HCO3 (20.0 - 26.0 MMOL/L) 23.3 25.4 ABG Base Excess (-3.0 - 3.0 MMOL/L) -2.5 -0.1 Sodium (135 - 141 MMOL/L) 143 H 141 Potassium (3.7 - 4.7 MMOL/L) 4.4 5.1 H Chloride (MEQ/L) 109 108 Ionized Calcium (1.13 - 1.32 MMOL/L) 1.27 1.16 Instrument (Specimen Descript) Arterial Arteria l Chemistry Sodium (137 - 145 MMOL/L) 138 Potassium (3.5 - 5.1 MMOL/L) 4.4 Chloride (98 - 107 MMOL/L) 111 H Carbon Dioxide (22 - 30 MMOL/L) 23 Anion Gap (14 - 24 MMOL/L) 8 L BUN (9 - 20 MG/DL) 28 H Creatinine (0.66 - 1.25 MG/DL) 1.30 H Glomerular Filtr Rate 55 Glucose (74 - 106 MG/DL) 130 H POC Glucose (60 - 99 MG/DL) 124 H 124 H POC Lactic Acid (0.7 - 2.0 mmol/L) 1.13 0.73 Calcium (8.4 - 10.2 MG/DL) 8.8 Coagulation INR (0.86 - 1.14) 1.2 H APTT (26.2 - 35.4 SECONDS) 34.9 PT Patient/Control Mix (9.4 - 12.7 SECONDS) 14. 1 H Hematology WBC (3.8 - 9.8 K/MM3) 14.1 H RBC (3.95 - 5.67 M/MM3) 3.45 L Hgb (12.4 - 16.7 G/DL) 10.4 L Hct (35.9 - 49.5 %) 31.5 L MCV (81.7 - 96.1 fL) 91 MCH (27.6 - 33.2 pg) 30.1 MCHC (32.9 - 35.5 %) 33.0 RDW (12.1 - 15.2 %) 12.8 Plt Count (129 - 368 K/MM3) 138 MPV (7.4 - 10.4 fl) 10.3 Neut % (Auto) (43 - 75 %) 70.5 Lymph % (Auto) (14 - 44 %) 23.7 [place] % (Auto) (4 - 13 %) 4.3 Eos % (Auto) (0 - 6 %) 0.6 Baso % (Auto) (0 - 2 %) 0.3 Neut # (Auto) (2.0 - 7.6 K/mm3) 9.91 H Lymph # (Auto) (1.0 - 3.8 K/mm3) 3.33 [place] # (Auto) (0.1 - 0.8 K/mm3) 0.61 Eos # (Auto) (0.0 - 0.2 K/mm3) 0.08 Baso # (Auto) (0.0 - 0.2 K/mm3) 0.04 Immature Gran % (0.0 - 2.0 %) 0.6 Nucleated RBC % (0 - 1.0 %) 0.0 Nucleated RBCs # (Man) (0.0 - 0.1 K/mm3) 0.00 12/06 12/06 12/06 12/06 1453 1421 1352 1252 Blood Gas O2 Saturation (92.0 - 98.5 %) 100.0 H 100.0 H 1 00.0 H 100.0 H ABG pH (7.35 - 7.45) 7.413 7.407 7.397 7.316 L ABG pCO2 (35.0 - 45.0 mmHg) 43.4 40.3 40.5 51.4 *H ABG pO2 (75.0 - 100.0) 507.1 *H 397.4 *H 439.2 *H 482.0 *H ABG HCO3 (20.0 - 26.0 MMOL/L) 27.7 H 25.3 24.9 26.2 H ABG Base Excess (-3.0 - 3.0 MMOL/L) 2.8 0.6 0.1 -0.3 Sodium (135 - 141 MMOL/L) 142 H 141 141 140 Potassium (3.7 - 4.7 MMOL/L) 4.9 H 4.9 H 4.3 4. 0 Chloride (MEQ/L) 108 109 108 107 Ionized Calcium (1.13 - 1.32 MMOL/L) 1.17 1.19 1.17 1.21 Instrument (Specimen Descript) Arterial Arteria l Arterial Arterial Chemistry POC Glucose (60 - 99 MG/DL) 115 H 120 H 126 H 1 33 H POC Lactic Acid (0.7 - 2.0 mmol/L) 1.35 0.75 0. 49 L 0.68 L 12/06 12/06 12/06 12/06 1222 1132 1019 0835 Blood Gas O2 Saturation (92.0 - 98.5 %) 100.0 H 100.0 H 1 00.0 H 95.7 ABG pH (7.35 - 7.45) 7.361 7.349 L 7.406 7.414 ABG pCO2 (35.0 - 45.0 mmHg) 50.5 *H 46.3 H 39.5 37.3 ABG pO2 (75.0 - 100.0) 552.3 *H 428.0 *H 361.4 *H 78.3 ABG HCO3 (20.0 - 26.0 MMOL/L) 28.6 *H 25.5 24.8 23.8 ABG Base Excess (-3.0 - 3.0 MMOL/L) 2.6 -0.5 0. 1 -0.5 Sodium (135 - 141 MMOL/L) 140 140 142 H 141 Potassium (3.7 - 4.7 MMOL/L) 4.0 4.3 4.0 3.8 Chloride (MEQ/L) 103 108 108 107 Ionized Calcium (1.13 - 1.32 MMOL/L) 1.02 L 1.2 1 1.22 1.21 Instrument (Specimen Descript) Arterial Arteria l Arterial Arterial Chemistry POC Glucose (60 - 99 MG/DL) 131 H 139 H 101 H 1 15 H POC Lactic Acid (0.7 - 2.0 mmol/L) 1.07 0.95 0. 40 L 0.60 L 12/06 0801 Chemistry POC Glucose (60 - 99 MG/DL) 117 H Radiology data: Recent Impressions: RADIOLOGY - XR CHEST 1V 12/06 1700 Report Impression - Status: SIGNED Entered: 12/06/2021 5063 IMPRESSION: 1. Visualized support tubes and catheters projec t in satisfactory position. 2. Significant widening of the mediastinum is co nsistent with recent surgery. Clinical follow-up with serial chest x- ray recommended. 3. Mild bilateral central interstitial infiltrat es. Impression By: Sophy - Kizzy Simon M.D. Results: labs reviewed, vital signs reviewed Free Text Obj Notes Free Text Obj Notes: physical exam limited, patient intubated post-op Diagnosis, Assessment Plan Problem List/A P: 1. Aortic stenosis, severe A P s/p AVR with Dr. Aragon 2. Coronary artery disease involving shinnecock cor onary artery A P s/p CABG with Dr. Aragon 3. DM2 (diabetes mellitus, type 2) A P currently on insulin drip POC glucose in 100s-130s 4. HTN (hypertension), benign A P currently recieving epi BP - 101/63 resume home meds when appropriate 5. Hyperlipidemia A P continue home meds 6. Obesity (BMI 30-39.9) Free Text DxA P Notes Free Text DxA P Notes: The patient is a 66 year old male with P MH of CAD, HTN, DM2, and severe aortic stenosis who is presenting a fter CABG x4 and AVR surgery with Dr. Aragon today. We were consulted for medical management. Currently BP meds, coreg, hydralazine and quinip ril, held. Resume when appropriate. Currently on insulin drop. Start insulin sliding scale when appropriate. Continue HLD home meds - lipitor, fenofibrate, o donna 3 Quality: Gen Med Crit Care VTE Prophylaxis VTE prophylaxis initiated: yes Current Medications Current medication review: I attest that the foregoing medication list in t he medical record is true, accurate, and complete to the best of my knowled ge. Attestations Attestation needed: teaching physician Faustino Mercado 12/06/21 2013: Quality: Gen Med Crit Care VTE Prophylaxis VTE prophylaxis initiated: yes (mechanical comp device) Current Medications Current medication review: I attest that the foregoing medication list in t he medical record is true, accurate, and complete to the best of my knowled ge. Attestations Teaching Physician Attestation 1st visit w/ resident: for 12/06/21 I was present with the resident during the histo ry and exam. I discussed the case with the resident Dr Soraida martinez PGy1 and . . . agree with the findings and plan as documented in the resident's note. 66 yoM obese with h/o uncont rolled DM2 admitted after elective AVR and 4 vessels CABG. Pt currently awake but remains on ventilat or support. His vitals stable off cardene gtt and he's on insulin gtt for post -op hyperglycemic controlled. Medicine consult requested for post-op care. - Continue current meds with asa, plavi x, and statin. Would start betablocker when BP tolerates - Await extubation and when pt able to tolerate PO intake, will start basal insulin for DM controll. Thank You for this consult, we will continue to follow pt with you. Electronically Signed by Anika Broderick MD R1 on 0 12/06/21 at 2110 Electronically Signed by Faustino Mercado MD on at [address] [facility] #:[id number] END OF REPORT 2021-12-06 17:46:00-00:00 [id number] [place] [address] PATIENT NAME: GARCÍA MARRERO ADMIT DATE: ACCOUNT NO: [id number] ROOM NO: [id number] AGE: 66 REPORT TYPE: OPERATIVE REPORT SEX: M ADMITTING PHYSICIAN:Wil Aragon MD ATTENDING PHYSICIAN:Wil Aragon MD OPERATION DATE: 12/06/2021 PREOPERATIVE DIAGNOSES: Coronary artery disease, aortic stenosis, hypertension, hyperlipidemia. POSTOPERATIVE DIAGNOSES: Coronary artery disease , aortic stenosis, hypertension, hyperlipidemia. PROCEDURE PERFORMED: Right C PERCUSSION INSTRUCTOR insertion, left femoral arterial monitoring line insertion, ultrasound-guided access with SonoSit e of the left subclavian vein and left common femoral nelly ry, aortic valve replacement with #21 Mirza tissue valve bioprosthesis, aortic coronary bypass x4; JEFFERSON to diagonal, saphenous vein to the LAD, the RCA and the left PDA, endoscopic vein harvesting of the right greater saphenous vein. SURGEON: Wil Aragon MD POOL SERVICER: Irene Mulligan PA-C SECOND POOL SERVICER: Shannon, podiatry resident. ANESTHESIA: General. COMPLICATIONS: None. DISPOSITION: The patient to the surgical ICU in stable condition. DESCRIPTION OF PROCEDURE: On 12/06/2021, the pat ient was brought to the operating room and placed on the operating table in supine position, prepped and draped in the usual fashion following introducti on of satisfactory general anesthesia and placement of monitoring l ivory and Mina catheter, hips, elbows, and shoulders were prepped and draped in usual f ashion. Right subclavian CVP was placed and left femoral arterial monitoring line was placed using Seldinger percutaneous guidewire technique and ultrasound- guided access with SonoSite. The patient was then prepped and draped in the u sual fashion. The greater saphenous vein was harvested of the righ t leg using endoscopic vein harvesting technique. The leg wound was closed. Simultaneou sly, a median sternotomy was performed with BRET was harvested. The pa tient was then heparinized, cannulated with a 24-[place] Mirza aortic cannula with a 2 9 x 37 Mirza atrial caval cannula and with a transatri al retrograde coronary sinus, cardioplegic cannula. The patient was then put on full bypass, cooled to 20 degrees centigrade. PATIENT NAME: GARCÍA MARRERO [id number] Topical iced saline placed pericardial well. Aor ta was cross clamped. Cold potassium cardioplegic solution infused at aorti c root, reinfused after each anastomosis and during aortic valve replacement every 15 minutes. The distal bypass with saphenous vein to the left PDA was d one with a 7-0 Prolene end-to-side to the bypass. Saphenous vein bypass to right coronary artery was done with 7-0 Prolene suture s. Saphenous vein bypass end-to-side to the LAD was done with 7-0 Prolene suture . The left BRET to the diagonal bypass was done with 7-0 Prolene suture end-to-side was done. The pat ient then had aortotomy performed. Valve was inspected. It was trileafle t and heavily densely calcified. The valve was excised. The annulus wa s decalcified irrigated with heparin saline solution. We sized a #21 Mirza tissue bioprosthesis from the aortic valve, color coded 2-0 Ethibond pledgeted mattress sutures were placed around the valve annulus wit h the pledgets underneath the annulus. Sutures were then placed through the sewi ng ring on the aortic valve, which was a #21 Mirza tissue bioprosthetic prosthe sis valve that was seated nicely. Sutures were tied down. We had good seating of the valve. We irrig ated with heparin saline solution. We then closed the aortotomy in 2 laye rs with running 4-0 Prolene suture. Prior to aortotomy closed, the patient w as placed in Trendelenburg. Air purging maneuvers were done. The aortotomy w as closed. THI needle was placed. The patient remained in Trendelenburg. A ortic crossclamp was removed. Air was purged through the aortic sump cannula p rior to removing the aortic crossclamp. Following that later, air was purged through the THI needle. The patient was defibrillated. The patient was then rewarmed and weaned from bypass, stable output rhythm, protamine infused. We decannulated the right superior pulmonary vein and left atrial cannula and oversewn with 4-0 Prolene suture. The patient remained stable. The patient was weaned off bypass. All surgical sites were inspected. Protamine was giv en, hemostasis was achieved. One mediastinal left pleural chest tube was placed. Temporary ventriculoatrial skin wires were placed. The patient was AV seque ntially paced to come off bypass through the chest wall that was closed in standard fashion in usual fashion. Dressings were applied and the patient was brought out through the surgical ICU in stable condition. Dictated By: Wil Aragon MD Date Dictated: 12/06/2021 17:46:06 Date Transcribed: 12/07/2021 00:06:13 DOUG/TIMOTEO Receipt ID: [id number] CC: Shahid Jesnen MD Authenticated by Wil Aragon MD On 022 01:12:50 PM at 0112 PATIENT NAME: GARCÍA MARRERO [id number] 2021-12-06 17:17:00-00:00 [id number] [place] [address] PATIENT NAME: GARCÍA MARRERO ADMIT DATE: 11/17 04/08 ACCOUNT NO: [id number] ROOM NO: ZSI02 AGE: 66 REPORT TYPE: ELECTROCARDIOGRAM SEX: M ADMITTING PHYSICIAN:Wil Aragon MD ATTENDING PHYSICIAN:Wil Aragon MD Order: [id number] Test Reason : CAD POST cAB Test Date/Time Stamp: SatDec 06 2021 17:17:56 Blood Pressure : / mmHG Vent. Rate : 076 BPM Atrial Rate : 076 BPM P-R Int : 180 ms QRS Dur : 180 ms QT Int : 520 ms P-R-T Axes : 065 -67 113 degree s QTc Int : 585 ms AV sequential or dual chamber electronic pacemak er When compared with ECG of 06-DEC-2021 07:21, Electronic ventricular pacemaker has replaced Si nus rhythm Vent. rate has increased BY 29 BPM Confirmed by SHAHID JENSEN ([id number]) on 12/07/2021 8:09:12 AM Referred By: Wil Aragon Confirmed by:SHAHID LUNDBERG at 0809 PATIENT NAME: GARCÍA MARRERO [id number] 2021-12-06 07:21:00-00:00 [id number] [place] [address] PATIENT NAME: GARCÍA MARRERO ADMIT DATE: ACCOUNT NO: [id number] ROOM NO: Z.SI02 AGE: 66 REPORT TYPE: ELECTROCARDIOGRAM SEX: M ADMITTING PHYSICIAN:Wil Aragon MD ATTENDING PHYSICIAN:Wil Aragon MD Order: [id number] Test Reason : PRE-OP CAB Test Date/Time Stamp: SatDec 06 2021 07:21:47 Blood Pressure : / mmHG Vent. Rate : 047 BPM Atrial Rate : 047 BPM P-R Int : 230 ms QRS Dur : 086 ms QT Int : 474 ms P-R-T Axes : 045 -12 063 degree s QTc Int : 419 ms Sinus bradycardia with 1st degree AV block Minimal voltage criteria for LVH, may be normal variant Nonspecific T wave abnormality Abnormal ECG When compared with ECG of 27-NOV-2021 03:51, No significant change was found Confirmed by SHAHID JENSEN ([id number]) on 12/06/2021 5:49:26 PM Referred By: Wil Aragon Confirmed by:SHAHID LUNDBERG at 6461 PATIENT NAME: GARCÍA MARRERO [id number] 2021-12-01 23:53:00-00:00 [id number] [facility] [id number] [place] [id number] PATIENT NAME: GARCÍA MARRERO ADMIT DATE: 11/16 ACCOUNT NO: [id number] ROOM NO: Z.362 AGE: 66 REPORT TYPE: 360 - QUERY RESPONSE DOCUMENT SEX: M ADMITTING PHYSICIAN:Billy Maxwell MD ATTENDING PHYSICIAN:Billy Maxwell MD Provider Query QUERY TEXT: Condition Renal 360MD Query related questions should be directed to: [email or web address] [phone] Based on your clinical judgment, can you provide the known or suspected condition(s) that represent(s) the clinical indicators listed below? The patient's Clinical Indicators include: -Creatinine 1.4, 1.2 labs -GFR 51, >60 labs Hospitalist History Physical by Faustino Mercado at 11/25/2021 16:01 "DM2 (diabetes mellitus, type 2) uncontrolled wi th hyperglycemia HTN Obesity (BMI 30-39.9) creatin ine 1.4, likely chronic. Will monitor" Options provided: -- Acute renal failure/Acute kidney injury -- Acute renal failure with tubular necrosis -- Acute renal insufficiency -- Chronic kidney disease, Please specify stage (i.e., stage 1, 2, 3a, 3b, 3, 4, or 5). -- End stage renal disease -- Other - I will add my own diagnosis -- Dismiss - Not applicable / Not valid -- Dismiss - Clinically unable to determine / Un known -- Assign to another provider QUERY RESPONSE: The patient has chronic kidney disease. Query created by: Jorge Kaplan on 11/28/2021 3 :19 PM Electronically Signed by Billy Maxwell MD on at 5201 PATIENT NAME: GARCÍA MARRERO [id number] 2021-11-29 14:27:00-00:00 [facility] ([facility]) Hospitalist Discharge Summary REPORT#:[id number] REPORT STATUS: Signed DATE:11/29/21 TIME: 1427 PATIENT: GARCÍA MARRERO UNIT #: [id number] ROOM/BED: [facility] : 55 AGE: 66 SEX: M ATTEND: Billy Maxwell ADM AUTHOR: Bennie Pacheco DO R1 * ALL edits or amendments must be made on the el [employer]/computer document * Bennie Pacheco 11/29/21 1427: General Information Problem List/A P: 1. Aortic stenosis, severe 2. Coronary artery disease involving shinnecock cor onary artery 3. Thoracic aortic aneurysm, without rupture 4. DM2 (diabetes mellitus, type 2) 5. HTN (hypertension), benign 6. Obesity (BMI 30-39.9) Date of admission: Observation Start Date: Date of admission: 11/25/21 Discharge date: 11/29/21 Admission diagnosis: CAD Discharge diagnosis: Severe Aortic Valve Stenosis Hospital course: Mr. Marrero is a 66 yo male with known h/o CAD s/p multiple PTCIs and severe aortic stenosis. The patient has been experiencing decreased exercise tolerance with worsening dyspnea of ex ertion with ADL and was admitted on 11/25/21 after a left and right heart catheterization, selctive L BRET angiogram, aortic root angiogram, and sealing device. The patient was f oudn to have severe aortic stenosis, three-vessel coron messi artery disease, patent stents, dilated ascending aorta at 4.3 cm. Good JEFFERSON for bypass. Thus an a ortic valve replacement, ascending aneurysm repair, and quadruple bypass to the LAD, second diagonal, left posterolateral branch, and right PDA was re commended. The patient was asmitted for further cardiac evaluation. While admitted the patient was found to have glucose levels over 300. His A1C was 13.5. Prior to hospitalization the patient was only taking metformin. While admitte d, subq insulin therapy and glipizide was intiated and metformin was discont inued. Cardiology cleared Mr. Marrero to be discharge to home once his glucose l evels were stable and then he would recieve a coronary art marcell bypass surgery and aortic valve replacement next week. The patient was seen and examined at bedside today. His glycemic control has improved with the initiation of insu mono therapy. Nursing provided diabetic education.The patient is to check his blood suga r three times a day. If his blood glucose is less than 100, then the patient was advised to not take the short or long acting insluin at that time. The p atient denies shortness of breath, chest pain, nausea, vomitting, polydipsi a, and polyuria. Med Rec Med Rec Discharge meds: Stop taking the following medications: metFORMIN XR (GLUCOPHAGE XR) 750 MG TAB.SR.24H 850 MILLIGRAM ORAL TWICE DAILY. CARVEDILOL (COREG) 25 MG TAB Continue taking these medications: ASPIRIN EC (ECOTRIN) 81 MG TAB.EC 81 MILLIGRAM ORAL BEDTIME. LEVOTHYROXINE (LEVOTHROID) 125 MCG TAB 125 MICROGRAM ORAL DAILY. ASCORBIC ACID (VITAMIN C) 1,000 MG TAB 1,000 MILLIGRAM ORAL DAILY. QUINAPRIL (ACCUPRIL) 40 MG TAB 40 MILLIGRAM ORAL TWICE DAILY. MULTIVITAMIN/MIN/IRON/FA/CA/ LYCOPENE (CENTRUM ULTRA MEN'S) 8 MG IRON-200 MCG-600 MCG TAB 1 EACH ORAL DAILY. ZOLPIDEM (AMBIEN) 10 MG TAB 10 MILLIGRAM ORAL AT BEDTIME NEEDED. as need ed for SLEEP OMEGA-3 FATTY ACIDS/FISH OIL 340/1000 MG (FISH OIL/OMEGA-3 1000/340 MG) 340 MG-1 ,000 MG CAPSULE 350 MILLIGRAM ORAL DAILY. Start taking the following new medications: FENOFIBRATE (LOFIBRA) 54 MG TAB 108 MILLIGRAM ORAL BEDTIME. Days = 30 Qty = 60 No Refills CARVEDILOL (COREG) 3.125 MG TAB 3.125 MILLIGRAM ORAL EVERY 12 HOURS. Days = 30 Qty = 60 No Refills hydrALAZINE (APRESOLINE) 25 MG TAB 25 MILLIGRAM ORAL EVERY 8 HOURS. Days = 30 Qty = 90 No Refills INSULIN GLARGINE (LANTUS SOLOSTAR (15mL)) 100 UN IT/ML (3 ML) PEN.INJCTR 40 UNITS SUBCUTANEOUS BEDTIME. Qty = 30 Refills = 1 INSULIN GLARGINE (LANTUS SOLOSTAR (15mL)) 100 UN IT/ML (3 ML) PEN.INJCTR 50 UNITS SUBCUTANEOUS BEFORE BREAKFAST. Qty = 30 Refills = 1 INSULIN LISPRO (HumaLOG CARTRIDGE (15mL)) 100 UN IT/ML CARTRIDGE 15 UNIT SUBCUTANEOUS BEFORE MEALS. Qty = 1 Refills = 2 glipiZIDE (GLUCOTROL) 5 MG TAB 5 MILLIGRAM ORAL TWICE DAILY BEFORE MEALS. Days = 30 Qty = 60 No Refills DME - GLUCOSE LANCETS (GLUCOSE LANCETS) 1 ITEM E ACH EACH MISCELLANEOUS FOUR TIMES A DAY. Qty = 100 Refills = 1 Instructions: Glucose Lancets of Choice DME - GLUCOSE METER (GLUCOSE METER) 1 ITEM EACH EACH MISCELLANEOUS DIRECTED. Qty = 1 No Refills Instructions: Glucose meter of Choice DME - GLUCOSE STRIPS (GLUCOSE STRIPS) 1 ITEM EAC H EACH MISCELLANEOUS FOUR TIMES A DAY. Qty = 100 Refills = 1 Instructions: Glucose Strips of Choice DME - INSULIN SYRINGES (INSULIN SYRINGES) 1 ITEM EACH EACH MISCELLANEOUS DIRECTED. Qty = 100 Refills = 1 Instructions: Insulin Syringes of choice. DME - INSULIN PEN NEEDLES (INSULIN PEN NEEDLES) 1 ITEM EACH EACH MISCELLANEOUS DIRECTED. Qty = 100 Refills = 1 Instructions: Insulin Pen [place] of choice. The following medications have been changed: Old: ROSUVASTATIN (CRESTOR) 20 MG TAB 20 MILLIGRAM ORAL BEDTIME. New: ROSUVASTATIN (CRESTOR) 40 MG TAB 40 MILLIGRAM ORAL BEDTIME. Qty = 30 Objective VS/I O Last Documented: Result Date Time Pulse Ox 93 11/29 1304 B/P 162/82 11/29 1304 B/P Mean 108.3 11/29 1304 Temp 98.6 11/29 1304 Pulse 83 11/29 1304 Resp 18 11/29 1304 O2 Delivery Room air 11/28 2320 24 hour I O ending at 0700: 11/29 0700 11/28 1900 Intake Total 920 150 Output Total Balance 920 150 Intake, Oral 920 150 Number 1 Bowel Movements Number Voids 3 General appearance: alert, awake, no acute distr ess, conversational Head/Eyes: atraumatic, clear cornea, normal conj unctiva/sclera ENT: moist mucosal membranes, normal dentition Neck: full range of motion, no JVD Cardiovascular: bradycardic, murmur, systolic mu rmur radiates to carotid s1 present, s2 present Respiratory: aerating well, clear to auscultatio n, symmetric expansion, no distress Abdomen: obese, non-tender, soft Extremities: moves all, no edema Musculoskeletal: normal inspection, no muscle sp asm Neuro/CUTTER WOODWIND REEDS: alert, oriented X 3, normal speech, n o motor deficits Skin: dry, normal temperature Psychiatry: normal affect, normal judgment/insig ht, normal mood Results Findings/Data: Laboratory Tests 11/29 11/29 11/28 1116 0744 2322 Chemistry POC Glucose (60 - 99 MG/DL) 279 115 88 Results: labs reviewed, vital signs reviewed Discharge Instructions PCP PCP follow-up: PCP: Golden Awad MD Discharge to: Home/Self Care Additional Discharge Routines: PCP Follow-Up, Co nsultant Follow-Up Diet: Diabetic, Cardiac Prescriptions: e-prescribe Discharge management: greater than 30 mins, face to face encounter Time spent: Time spent on patient care (minutes): 40 Follow-up Appointments PCP follow-up: PCP: Golden Awad MD PCP follow up timeframe: In 5 days Special instructions: CALL TO MAKE APPOINTMENT Attending Physician: Attending Physician: Billy Maxwell MD Consulting provider 1: Provider 1: Shahid Jensen MD Cardiology Specialty: CardiologyInterventional Consult follow up timeframe: In 6 days Special instructions: CALL TO MAKE APPOINTMENT Consulting provider 2: Provider 2: Wil Aragon MD Specialty: Thoracic Surgery Follow up timeframe: In 5 days Special instructions: CALL TO MAKE APPOINTMENT Treatments Procedures Treatments Procedures: Right and Left heart catheterization Imaging: Recent Impressions: CAT SCAN - CT CHEST W/O CONTRAST 11/28 0532 Report Impression - Status: SIGNED Entered: 11/28/2021 0647 IMPRESSION: 1. Fatty infiltration of the liver. No acute con solidation. 2. Dense coronary artery calcifications. Impression By: [email or web address] - Tobi Richard MD Carotid duplex study 1. Study suggests 1-19% stenosis involving the r ight carotid artery bifurcation and left carotid artery bifurcation . 2. Antegrade flow noted in the right vertebral a rtery and left vertebral artery. Quality: Discharge Advanced Care Plan 65 or Older Discussed with: patient, surrogate decis. maker ( and daughter) Discussion included: code status (full code) Current Medications Current medication review: I attest that the foregoing medication list in t he medical record is true, accurate, and complete to the best of my knowled ge. Attestations Attestation needed: teaching physician Billy Maxwell 12/01/212025: Attestations Teaching Physician Attestation F/U visit w/ resident: I saw the patient with the resident and . . . agree with the resident's findings and plan. agree with the resident's findings and plan EXCE PT: Patient was cleared by cardiology and cardiovasc ular surgery for discharge. Patient was discharged in stable condition. Electronically Signed by Bennie Pacheco DO R1 on at 2001 Electronically Signed by Billy Maxwell MD on 2 at 2026 RPT #:[id number] END OF REPORT 2021-11-28 23:13:00-00:00 [phone] [place] [address] PATIENT NAME: GARCÍA MARRERO ADMIT DATE: 11/16 ACCOUNT NO: [id number] ROOM NO: [facility] AGE: 66 REPORT TYPE: PROGRESS NOTE SEX: M ADMITTING PHYSICIAN:Billy Maxwell MD ATTENDING PHYSICIAN:Billy Maxwell MD DATE: 11/28/2021 CARDIAC SURGERY SERVICE The patient is seen at bedside in telemetry unit . The patient currently is stable. Discussed the plan for coronary artery bypass surgery and aortic valve replacement. The patient's blood sugar after eat ing lunch was 300, was told measures on controlling blood sugar. He will be discharged home, will be brought back for surgery next week. Dictated By: Wil Aragon MD WT: PN:SHU/LALO/ESEQUIEL Conf#: [id number]/DID#: [id number] Authenticated by Wil Aragon MD On 022 01:32:57 PM at 0132 PATIENT NAME: GARCÍA MARRERO [id number] 2021-11-28 17:07:00-00:00 [facility] ([facility]) Hospitalist Progress Note REPORT#:[id number] REPORT STATUS: Signed DATE:11/28/21 TIME: 1706 PATIENT: GARCÍA MARRERO UNIT #: [id number] [facility]: 66 SEX: M ATTEND: Billy Maxwell ADM AUTHOR: Bennie Pacheco DO R1 * ALL edits or amendments must be made on the [employer]/computer document * Bennie Pacheco 11/28/21 170: Subjective Chief complaint: worsening symptomatic aortic stenosis HPI: Patient seen and examined at bedside. Th e patient's blood glucose is improving but still eleavted post-meals. He denies chest p ain and shortness of breath. Review of Systems Constitutional: Denies: chills, fatigue, fever. Respiratory: Denies: productive cough (sputum), SOB, wheezing . Cardiovascular: Denies: chest pain, edema, palpitations. GI: Denies: abdominal pain, nausea, vomiting. : Denies: dysuria, frequency, urgency. All systems rev neg: except as marked Objective General VS/I O: Vital Signs: Date Time Temp Pulse Resp B/P B/P Pulse O2 O2 F low FiO2 Mean Ox Delivery Rate 11/28 1605 97.9 48 17 164/84 110.6 99 Room air 11/28 1116 98.2 59 17 131/79 96.5 97 Room air 11/28 0713 97.9 49 17 143/85 104.3 97 Room air 11/28 0430 97.7 52 17 147/86 106.2 97 Room air 11/28 0025 97.9 54 17 129/69 88.8 97 Room air 11/27 2004 98.2 58 17 147/84 105.2 96 Room air 24 hour I O ending at 0700: 11/28 0700 11/27 1900 Intake Total 850 300 Output Total Balance 850 300 Intake, Oral 850 300 Number Voids 3 PATIENT WEIGHT: Weight (lb): Weight (oz): Weight (kg): Medications: Active Meds + DC'd Last 24 Hrs Insulin Human Lispro (HumaLOG) 15 UNIT AC SUBQ Hydralazine HCl (APRESOLINE) 25 MG Q8HR PO Carvedilol (COREG) 12.5 MG Q12HR PO Fenofibrate (TRICOR) 108 MG BEDTIME PO Insulin Glargine (Lantus/Semglee) 40 UNITS BID S UBQ Carvedilol (COREG) 12.5 MG Q12HR PO (DC) Insulin Glargine (Lantus/Semglee) 35 UNITS BID S UBQ (DC) Glipizide (GLUCOTROL TAB) 5 MG BID AC PO Insulin Human Lispro (HumaLOG) 8 UNIT AC SUBQ (D C) Aspirin (ASPIRIN EC) 81 MG DAILY PO Levothyroxine Sodium (Synthroid) 125 MCG DAILY P O Atorvastatin Calcium (LIPITOR) 80 MG BEDTIME PO Lisinopril (PRINIVIL) 20 MG BID PO Enoxaparin Sodium (LOVENOX) 40 MG Q24H SUBQ Acetaminophen/Codeine Phosphate (TYLENOL WITH CO DEINE #3 (C-III)) 1 UDTAB Q4H PRN PRN PO Polyethylene Glycol (MIRALAX) 17 GM DAILY PRN P RN PO Senna/Docusate Sodium (SENOKOT S) 1 TAB BID PRN PRN PO Temazepam (RESTORIL (C-IV)) 15 MG BEDTIME PRN CO N PO Nitroglycerin (NITRO-BID UD) 1 INCH Q6H TRANSDER M Ondansetron HCl (ZOFRAN) 4 MG Q8H PRN PRN IV Insulin Human Lispro (HumaLOG) HIGH DOSE SLIDING SCALE AC HS SUBQ Dextrose/Water (DEXTROSE 50% IN WATER) 12.5 GM A SDIR PRN IV Dextrose/Water (DEXTROSE 50% IN WATER) 25 GM ASD IR PRN IV Physical Exam General appearance: alert, awake, oriented, no a cute distress Head/Eyes: atraumatic, clear cornea, normal conj unctiva/sclera ENT: moist mucosal membranes, normal dentition Neck: full range of motion, no JVD Cardiovascular: bradycardic, murmur, systolic mu rmur radiates to carotid s1 present, s2 present Respiratory: aerating well, clear to auscultatio n, symmetric expansion, no distress Abdomen: obese, non-tender, soft Extremities: moves all, no edema Musculoskeletal: normal inspection, no muscle sp asm Neuro/CUTTER WOODWIND REEDS: alert, oriented X 3, normal speech, n o motor deficits Skin: dry, normal temperature Psychiatry: normal affect, normal judgment/insig ht, normal mood Results Findings/Data: Laboratory Tests 11/28 11/28 11/28 11/28 11/27 1601 1224 1115 0712 2004 Chemistry POC Glucose (60 - 99 MG/DL) 257 H 308 *H 322 *H 169 H 208 H Radiology data: Recent Impressions: CAT SCAN - CT CHEST W/O CONTRAST 11/28 0532 Report Impression - Status: SIGNED Entered: 11/28/2021 0627 IMPRESSION: 1. Fatty infiltration of the liver. No acute con solidation. 2. Dense coronary artery calcifications. Impression By: [email or web address] - Tobi Richard MD Results: labs reviewed, vital signs reviewed Diagnosis, Assessment Plan Problem List/A P: 1. Aortic stenosis, severe -worsening symptoms with decreased exercise yaron erance and exertional dyspnea -harsh murmur heard -per patient likely aortic valve replac ement to be preformed after glucose is better controled. 2. Coronary artery disease involving shinnecock cor onary artery -s/p [facility] with aortic angiogram which showed mul tivessels CAD -evaluation by Dr. Aragon, AVR with/without CA BG 3. Thoracic aortic aneurysm, without rupture -s/p [facility] with aortic angiogram dilated ascendin g thoracic aneurysm 4.3 cm -evaluation for possible TAA repair 4. DM2 (diabetes mellitus, type 2) -improving, POC glucose 250-150 -Lantus 50 units AM -Lantus 40 units at night -Premeal lispro 15 units -glipizide 5mg BID AC 5. HTN (hypertension), benign -carvedilol 3.25 BID -lisinopril 20mg BID 6. Obesity (BMI 30-39.9) -dietary recommendations made -follow-up with pcp as outpatient Free Text DxA P Notes Free text DxA P notes: 66 yoM with known h/o CAD s/ p multiple PTCIs, and severe aortic stenosis. Pt has been experiencing decreased exercise tolerance w ith worsening dyspnea of exertion with ADL. -post-meal glucose continues to be elevated. Inc rease premeal lispro to 15 DVT and GI prophylaxis Full Code dispo: home once glucose improved, likely tomorr ow Quality: Gen Med Crit Care VTE Prophylaxis VTE prophylaxis initiated: yes (Lovenox) Current Medications Current medication review: I attest that the foregoing medication list in t he medical record is true, accurate, and complete to the best of my knowled ge. Advanced Care Plan 65 or Older Discussed with: patient, surrogate decis. maker ( and daughter) Discussion included: code status (full code) Billy Maxwell 11/28/21 1840: Attestations Teaching Physician Attestation F/U visit w/ resident: I saw the patient with the resident and . . . agree with the resident's findings and plan. agree with the resident's findings and plan EXCE PT: Blood glucose better but still elevated post marla ls. We will increase Premeal lispro to 15.. Increase morning Lantus to 50 units. Continue 40 units at night. Patient is preop cardiac. We will decrease Coreg to 3.25 mg twice daily. Patient can be discharged once blood glucose sta ble. Electronically Signed by Bennie Pacheco DO R1 on at 2023 Electronically Signed by Billy Maxwell MD on 2 at 0044 RPT #:[id number] END OF REPORT 2021-11-28 05:43:00-00:00 [facility] ([facility] Cardiology Progress Note REPORT#:[id number] REPORT STATUS: Signed DATE:11/28/21 TIME: 05 PATIENT: GARCÍA MARRERO UNIT #: [id number] ROOM/BED: [address] : 55 AGE: 66 SEX: M ATTEND: Billy Maxwell ADM AUTHOR: Aidee Armstrong MD * ALL edits or amendments must be made on the [employer]/computer document * Subjective Chief complaint: CAD Patient reports: No: chest pain, palpitations, shortness of breat h. Objective General VS/I O: 24 hour I O ending at 0700: 11/28 0700 11/27 1900 Intake Total 300 Output Total Balance 300 Intake, Oral 300 Vital Signs: Date Time Temp Pulse Resp B/P B/P Pulse O2 O2 F low FiO2 Mean Ox Delivery Rate 11/28 0430 97.7 52 17 147/86 106.2 97 Room air 11/28 0025 97.9 54 17 129/69 88.8 97 Room air 11/28 2003 98.2 58 17 147/84 105.2 96 Room air 11/27 1539 97.9 49 18 174/86 115.6 99 Room air 11/27 1058 97.9 50 18 169/92 117.3 99 Room air 11/27 0716 98.2 53 18 128/77 94.1 96 Room air PATIENT WEIGHT: Weight (lb): Weight (oz): Weight (kg): Medications: Active Meds + DC'd Last 24 Hrs Hydralazine HCl (APRESOLINE) 25 MG Q8HR PO Carvedilol (COREG) 12.5 MG Q12HR PO Fenofibrate (TRICOR) 108 MG BEDTIME PO Insulin Glargine (Lantus/Semglee) 40 UNITS BID S UBQ Carvedilol (COREG) 12.5 MG Q12HR PO (DC) Insulin Glargine (Lantus/Semglee) 35 UNITS BID S UBQ (DC) Glipizide (GLUCOTROL TAB) 5 MG BID AC PO Insulin Human Lispro (HumaLOG) 8 UNIT AC SUBQ Aspirin (ASPIRIN EC) 81 MG DAILY PO Levothyroxine Sodium (Synthroid) 125 MCG DAILY P O Atorvastatin Calcium (LIPITOR) 80 MG BEDTIME PO Lisinopril (PRINIVIL) 20 MG BID PO Enoxaparin Sodium (LOVENOX) 40 MG Q24H SUBQ Acetaminophen/Codeine Phosphate (TYLENOL WITH CO DEINE #3 (C-III)) 1 UDTAB Q4H PRN PRN PO Polyethylene Glycol (MIRALAX) 17 GM DAILY PRN CO N PO Senna/Docusate Sodium (SENOKOT S) 1 TAB BID PRN PRN PO Temazepam (RESTORIL (C-IV)) 15 MG BEDTIME PRN CO N PO Nitroglycerin (NITRO-BID UD) 1 INCH Q6H TRANSDER M Acetaminophen (TYLENOL) 650 MG Q4H PRN PRN PO (D C) Hydrocodone Bitart/Acetaminophen (NORCO 5/325 TA BLET (C-II)) 1 TAB Q4H PRN PRN PO (DC) Ondansetron HCl (ZOFRAN) 4 MG Q8H PRN PRN IV Insulin Human Lispro (HumaLOG) MEDIUM DOSE SLIDI NG SCALE AC HS SUBQ Dextrose/Water (DEXTROSE 50% IN WATER) 12.5 GM A SDIR PRN IV Dextrose/Water (DEXTROSE 50% IN WATER) 25 GM ASD IR PRN IV Physical Exam General appearance: alert, awake, oriented Head/Eyes: atraumatic, normocephalic ENT: moist mucosal membranes Neck: no JVD Cardiovascular: CV assessment: regular rate and rhythm Respiratory: clear to auscultation, no distress Lower extremity: LE assessment: no edema Musculoskeletal: full range of motion Neuro/CUTTER WOODWIND REEDS: alert, oriented X 3, CN II-XII intact Skin: dry, intact Wound/incision: Site condition: dressing clean dry Psychiatry: normal affect, normal judgment/insig ht, normal mood Results Findings/Data: Laboratory Tests 11/27 1540 1057 0717 Chemistry POC Glucose (60 - 99 MG/DL) 208 H 150 H 251 H 2 04 H Diagnosis, Assessment Plan Free Text DxA P Notes Free Text DxA P Notes: IMP: CAD - 3 vessel - severe TAA DM Plan: Glucose control Plan ACB, AVR. CTA aorta. at 1844 RPT #:[id number] END OF REPORT 2021-11-27 13:26:00-00:00 [id number] [place] [address] PATIENT NAME: GARCÍA MARRERO ADMIT DATE: 11/16 ACCOUNT NO: [id number] ROOM NO: [facility] AGE: 66 REPORT TYPE: ECHOCARDIOGRAM SEX: M ADMITTING PHYSICIAN:Faustino Mercado MD ATTENDING PHYSICIAN:Faustino Mercado MD *[facility]* [address] [place] [address] Transthoracic Echocardiogram Patient: García Marrero Study Date: 11/27/2021 BP: 109 / 67 Location: [facility] URN: [id number] 35 : 1955 Age: 66 Height: / Gender: M Weight: / BMI/BSA: / *Ordering Physician: * Shahid Jensen MD *Interpreting Physician: * Shahid Jensen MD *Heavy Equipment Operating Engineer: * Olivia Mccloud RVT Indications: CAD [place] Vessel. Aortic Stenosis. TAA. Study data: Transthoracic echocardiogram. Proced ure: Transthoracic echocardiography was performed. Images were obta ined using a Scribd cardiac ultrasound machine. Image quality was fair. M-mo de, complete 2D, complete spectral Doppler, and color Doppler. Lo cation: Bedside. Patient status: Inpatient. Patient room number: 362. Study status: Routine. Findings Left ventricle: The cavity size is normal. Wall thickness is mildly to moderately increased. Systolic function is rebecca l. The estimated ejection fraction is 55-60%. Wall motion is norm al; there are no regional wall motion abnormalities. Pulmonary ve nous flow is not recorded. Doppler parameters are consistent with abnormal left ventricular relaxation (grade 1 diastolic dysfun ction). Right ventricle: Not well visualized. The cavity size is normal. Systolic function is normal. PATIENT NAME: GARCÍA MARRERO [id number] Left atrium: The atrium is mildly dilated. Right atrium: The atrium is normal in size. Atrial septum: Poorly visualized. No defect or p atent foramen ovale is identified. Aorta: The aorta is not visualized and moderatel y dilated. The ascending aortic is mildly dilated, measuring of 4.2cm. Aortic valve: The valve is trileaflet. The leafl ets are mildly thickened and moderately calcified. The findings are consistent with severe stenosis. There is mild regurgitation. Mitral valve: The annulus is mildly calcified. T he leaflets are mildly thickened. There is mild regurgitation. Tricuspid valve: Not well visualized. There is m ild regurgitation. Pulmonic valve: Not well visualized. There is no significant regurgitation. Pericardium: There is no pericardial effusion. Systemic veins: Inferior vena cava: Not well visualized. Baseline ECG: Sinus bradycardia. Measurements Left ventricle Value 01/10/2019 Ref JEANNETTE, LAX 5.1 cm 5.2 4.2 - 5.8 ESD, LAX 3.4 cm 3.5 2.5 - 4.0 FS, LAX 32 % 32 25 - 43 PW, ED 1.4 cm 1.3 0.6 - 1.0 PW, ES 2.1 cm 1.7 ------ IVS/PW, ED 0.95 1.01 ------ EF 60 % 60 52 - 72 IVRT 125 ms 145 ------ E', lat rashi, 8.0 cm/sec >=10.0 TDI E/e', lat 8 ------ rashi, TDI E', med rashi, 4.0 cm/sec >=7.0 TDI E/e', med 17 ------ rashi, TDI E', avg, TDI 6.0 cm/sec ------ E/e', avg, 11 <=14 TDI LVOT Value 01/10/2019 Ref Diam, S 2.08 cm 2.05 ------ Area 3.4 cm 2 3.3 ------ Peak dale, S 1.25 m/sec 1.49 ------ PATIENT NAME: GARCÍA MARRERO [id number] Mean dale, S 0.94 m/sec 1.04 ------ VTI, S 36.5 cm 45.2 ------ Peak grad, S 6 mm Hg 9 ------ Mean grad, S 4 mm Hg 5 ------ SV 123 ml 132 ------ Qs 5.78 L/min 6.66 ------ Ventricular septum Value 01/10/2019 Ref IVS, ED 1.4 cm 1.3 0.6 - 1.0 IVS, ES 2.1 cm 1.7 ------ Right ventricle Value 01/10/2019 Ref JEANNETTE, LAX 2.6 cm 2.9 ------ Pressure, S 32 mm Hg 27 ------ RVOT Value 01/10/2019 Ref Peak v, S 0.79 m/sec ------ Peak grad, S 2 mm Hg ------ Left atrium Value 01/10/2019 Ref AP dim, ES 4.99 cm 4.33 3.00 - 4.00 Area ES, A4C 24 cm 2 <=20 AP dim, ES MM 5.1 cm 4.3 3.0 - 4.0 LA/Ao root 1.54 1.25 ------ ratio, MM Right atrium Value 01/10/2019 Ref Area, ES, A4C 16 cm 2 10 18 Aortic valve Value 01/10/2019 Ref Leaflet sep, 1.09 cm 1.87 ------ MM Peak v, S 4.26 m/sec 3.59 ------ Mean v, S 3.15 m/sec 2.34 ------ VTI, S 124.4 cm 79.4 ------ Mean grad, S 44.8 mm Hg 26.4 ------ Peak grad, S 72.9 mm Hg 51.6 ------ LVOT/AV, VTI 0.29 0.57 ------ ratio SHANNON, VTI 1.01 cm 2 1.66 ------ LVOT/AV, 0.29 0.41 ------ Vpeak ratio SHANNON, Vmax 0.95 cm 2 1.36 ------ Mitral valve Value 01/10/2019 Ref Peak E 0.67 m/sec 0.71 ------ Peak A 0.76 m/sec 0.75 ------ Mean v, D 0.56 m/sec 0.7 ------ VTI leaflet 42.0 cm 48.9 ------ coapt PATIENT NAME: GARCÍA MARRERO [id number] Decel time 245 ms 367 ------ PHT 85 ms 120 ------ Mean grad, D 1.6 mm Hg 2.4 ------ Peak grad, D 4.7 mm Hg 6.3 ------ Peak E/A 0.88 0.94 ------ ratio MVA, PHT 2.6 cm 2 1.8 ------ MR peak v 3.04 m/sec ------ Pulmonic valve Value 01/10/2019 Ref CO v, ED 0.47 m/sec 0.51 ------ Tricuspid valve Value 01/10/2019 Ref TR peak v 2.58 m/sec 2.35 <=2.8 Peak RV-RA 27 mm Hg 22 ------ grad, S Aortic root Value 01/10/2019 Ref Root diam 4.2 cm 3.3 ------ Root diam, ED 3.30 cm 3.47 ------ MM Pulmonary artery Value 01/10/2019 Ref Pressure, S 23.2 mm Hg 22.8 ------ Systemic veins Value 01/10/2019 Ref Estimated CVP 5 mm Hg 5 ------ Conclusions Summary: 1. Left ventricle: The cavity size is normal. Wa ll thickness is mildly to moderately increased. Systolic function is n ormal. The estimated ejection fraction is 55-60%. Wall motion is nor mal; there are no regional wall motion abnormalities. Doppler par ameters are consistent with abnormal left ventricular relaxation (grad e 1 diastolic dysfunction). 2. Right ventricle: The cavity size is normal. S ystolic function is normal. The RV pressure during systole by Doppl er is 32 mm Hg. 3. Left atrium: The atrium is mildly dilated. 4. Aortic valve: The findings are consistent wit h severe stenosis. The mean systolic gradient is 44.8 mm Hg. The peak systolic gradient is 72.9 mm Hg. Prepared and electronically signed by Shahid Jensen MD 11/27/2021 13:26 PATIENT NAME: GARCÍA MARRERO [id number] at 1326 PATIENT NAME: GARCÍA MARRERO [id number] 2021-11-27 13:24:00-00:00 [id number] [place] [address] PATIENT NAME: GARCÍA MARRERO ADMIT DATE: 11/16 ACCOUNT NO: [id number] ROOM NO: Z.362 AGE: 66 REPORT TYPE: eCAROTID ULTRASOUND SEX: M ADMITTING PHYSICIAN:Faustino Mercado MD ATTENDING PHYSICIAN:Faustino Mercado MD *[facility]* [address] [place], [place] [id number] Carotid Duplex Study Patient: García Marrero Study Date: 11/27/2021 BP: 109 / 67 Location: [facility] URN: [id number] 35 : 1955 Age: 66 Height: / Gender: M Weight: / BMI/BSA: / *Ordering Physician: * Shahid Jensen MD *Interpreting Physician: * Shahid Jensen MD *Heavy Equipment Operating Engineer: * Olivia Mccloud, T Indications: CAD. Pre-op evaluation. Study data: Carotid duplex study. Bilateral eval uation with grayscale 2D imaging, color Doppler imaging, and spectral Doppler analysis. Location: Bedside. Patient status: Inpatient. [facility] room number: 362. Procedure: A vascular evaluation was perfor med. Images were obtained using a Scribd vascular ultrasound machine. Image quality was adequate. Study status: Routine. Findings Carotid/vertebral arteries: Right common carotid: The vessel has minimal carlos que. Right internal carotid: The proximal vessel has minimal plaque. Right external carotid: The vessel has minimal p laque. Right vertebral: The arterial flow direction is antegrade. Left vertebral: The arterial flow direction is a ntegrade. Left common carotid: The vessel has minimal plaq ue. Left internal carotid: The proximal vessel has m inimal plaque. Left external carotid: The vessel has minimal pl aque. PATIENT NAME: GARCÍA MARRERO [id number] Arterial flow: Location PSV* EDV* PSV ratio Location PSV* EDV* PSV ratio R CCA, prox 68 13 --------- L CCA, prox 49 7 --- ------ R CCA, mid 65 9 --------- L CCA, mid 39 10 ----- ---- R CCA, distal 42 9 --------- L CCA, distal 46 11 --------- R ICA, prox 54 17 0.8 L ICA, prox 47 14 0.96 R ICA, mid 47 14 0.69 L ICA, mid 43 14 0.88 R ICA, distal 40 11 0.6 L ICA, distal 51 17 1.05 R ECA 49 ---- --------- L ECA 49 ---- --------- R vertebral 29 9 --------- L vertebral 19 5 ---- ----- *Velocities are expressed in cm/sec, Diameters are expressed in cm Conclusions 1. Study suggests 1-19% stenosis involving the r ight carotid artery bifurcation and left carotid artery bifurcation . 2. Antegrade flow noted in the right vertebral a rtery and left vertebral artery. Prepared and electronically signed by Shahid Jensen MD 11/27/2021 13:24 at 1324 PATIENT NAME: GARCÍA MARRERO [id number] 2021-11-27 11:14:00-00:00 [facility] ([facility]) Cardiology Progress Note REPORT#:[id number] REPORT STATUS: Signed DATE:11/27/21 TIME: 1114 PATIENT: GARCÍA MARRERO UNIT #: [id number] ROOM/BED: [address] : 55 AGE: 66 SEX: M ATTEND: Jessica Mercado MD ADM AUTHOR: Aidee Armstrong MD * ALL edits or amendments must be made on the [employer] document * Subjective Chief complaint: CAD Patient reports: No: chest pain, palpitations, shortness of breat h. Objective General VS/I O: 24 hour I O ending at 0700: 11/27 0700 11/26 1900 Intake Total 500 Output Total Balance 500 Intake, Oral 500 Number Voids 1 Vital Signs: Date Time Temp Pulse Resp B/P B/P Pulse O2 O2 F low FiO2 Mean Ox Delivery Rate 11/27 1058 97.9 50 18 169/92 117.3 99 Room air 11/27 0716 98.2 53 18 128/77 94.1 96 Room air 11/27 0411 97.9 55 17 109/67 81.2 97 11/26 2349 97.5 56 18 131/74 93.3 95 11/26 1959 98.1 56 18 184/97 126.3 98 11/26 1720 98.2 60 16 146/78 100.9 95 Room air 11/26 1116 97.7 53 20 126/86 99.6 98 Room air PATIENT WEIGHT: Weight (lb): Weight (oz): Weight (kg): Physical Exam General appearance: alert, awake, oriented Head/Eyes: atraumatic, normocephalic ENT: moist mucosal membranes Neck: no JVD Cardiovascular: CV assessment: regular rate and rhythm Respiratory: clear to auscultation, no distress Lower extremity: LE assessment: no edema Musculoskeletal: full range of motion Neuro/CUTTER WOODWIND REEDS: alert, oriented X 3, CN II-XII intact Skin: dry, intact Wound/incision: Site condition: dressing clean dry Psychiatry: normal affect, normal judgment/insig ht, normal mood Results Findings/Data: Laboratory Tests 11/27 1722 1353 Chemistry POC Glucose (60 - 99 MG/DL) 204 H 246 H 311 *H 325 *H Diagnosis, Assessment Plan Free Text DxA P Notes Free Text DxA P Notes: IMP: CAD - 3 vessel - severe TAA DM Plan: Glucose control Plan ACB, AVR. CTA aorta. at 1428 RPT #:[id number] END OF REPORT 2021-11-27 09:00:00-00:00 [facility] ([facility]) Hospitalist Progress Note REPORT#:[id number] REPORT STATUS: Signed DATE:11/27/21 TIME: 899 PATIENT: GARCÍA MARRERO UNIT #: [id number] ROOM/BED: [address] : 55 AGE: 66 SEX: M ATTEND: Jessica Meracdo MD ADM AUTHOR: Bennie Pacheco DO R1 * ALL edits or amendments must be made on the [employer]/computer document * Bennie Pacheco 11/27/21 0900: Subjective Chief complaint: worsening symptomatic aortic stenosis HPI: Per nursing, no acute events overnight. The patient remains in sinus ayaka HR 50 -55. POC Glucose improving 246-250. Goal to get in <200. He denies chest pain and shortness of breath. Review of Systems Constitutional: Denies: chills, fatigue, fever. Respiratory: Denies: SOB, wheezing. Cardiovascular: Denies: chest pain, palpitations. Neuro: Reports: headache. Denies: vision change. All systems rev neg: except as marked Objective General VS/I O: Vital Signs: Date Time Temp Pulse Resp B/P B/P Pulse O2 O2 F low FiO2 Mean Ox Delivery Rate 11/28 715 98.2 53 18 128/77 94.1 96 Room air 11/27 410 97.9 55 17 109/67 81.2 97 11/26 2348 97.5 56 18 131/74 93.3 95 09/11 1959 98.1 56 18 184/97 126.3 98 11/26 1720 98.2 60 16 146/78 100.9 95 Room air 11/26 1116 97.7 53 20 126/86 99.6 98 Room air 24 hour I O ending at 0700: 11/27 0700 11/26 1900 Intake Total 500 Output Total Balance 500 Intake, Oral 500 Number Voids 1 PATIENT WEIGHT: Weight (lb): Weight (oz): Weight (kg): Medications: Active Meds + DC'd Last 24 Hrs Carvedilol (COREG) 12.5 MG Q12HR PO Insulin Glargine (Lantus/Semglee) 25 UNITS BID S UBQ (DC) Insulin Glargine (Lantus/Semglee) 35 UNITS BID S UBQ Glipizide (GLUCOTROL TAB) 5 MG BID AC PO Insulin Glargine (Lantus/Semglee) 25 UNITS NOW O NE SUBQ (DC) Insulin Human Lispro (HumaLOG) 8 UNIT AC SUBQ Insulin Glargine (Lantus/Semglee) 25 UNITS NOW O NE SUBQ (DC) Aspirin (ASPIRIN EC) 81 MG DAILY PO Levothyroxine Sodium (Synthroid) 125 MCG DAILY P O Atorvastatin Calcium (LIPITOR) 80 MG BEDTIME PO Carvedilol (COREG) 25 MG Q12HR PO (DC) Insulin Glargine (Lantus/Semglee) 25 UNITS BEDTI ME SUBQ (DC) Lisinopril (PRINIVIL) 20 MG BID PO Insulin Human Lispro (HumaLOG) 5 UNIT AC SUBQ (D C) Enoxaparin Sodium (LOVENOX) 40 MG Q24H SUBQ Acetaminophen/Codeine Phosphate (TYLENOL WITH CO DEINE #3 (C-III)) 1 UDTAB Q4H PRN PRN PO Polyethylene Glycol (MIRALAX) 17 GM DAILY PRN CO N PO Senna/Docusate Sodium (SENOKOT S) 1 TAB BID PRN PRN PO Temazepam (RESTORIL (C-IV)) 15 MG BEDTIME PRN CO N PO Nitroglycerin (NITRO-BID UD) 1 INCH Q6H TRANSDER M Acetaminophen (TYLENOL) 650 MG Q4H PRN PRN PO Hydrocodone Bitart/Acetaminophen (NORCO 5/325 TA BLET (C-II)) 1 TAB Q4H PRN PRN PO Ondansetron HCl (ZOFRAN) 4 MG Q8H PRN PRN IV Insulin Human Lispro (HumaLOG) MEDIUM DOSE SLIDI NG SCALE AC HS SUBQ Dextrose/Water (DEXTROSE 50% IN WATER) 12.5 GM A SDIR PRN IV Dextrose/Water (DEXTROSE 50% IN WATER) 25 GM ASD IR PRN IV Physical Exam General appearance: alert, awake, oriented, no a cute distress Head/Eyes: atraumatic, clear cornea, normal conj unctiva/sclera ENT: moist mucosal membranes, normal dentition Neck: full range of motion, no JVD Cardiovascular: bradycardic, murmur, systolic mu rmur radiates to carotid, s1 present, s2 present Respiratory: aerating well, clear to auscultatio n, symmetric expansion, no distress Abdomen: obese, non-tender, soft Extremities: moves all, no edema Musculoskeletal: normal inspection, no muscle sp asm Neuro/CUTTER WOODWIND REEDS: alert, oriented X 3, normal speech, n o motor deficits Skin: dry, normal temperature Psychiatry: normal affect, normal judgment/insig ht, normal mood Results Findings/Data: Laboratory Tests 11/27 11/26 11/26 11/26 11/26 0717 1955 1722 1353 0942 Chemistry POC Glucose (60 - 99 MG/DL) 204 H 246 H 311 *H 325 *H 385 *H Results: labs reviewed, vital signs reviewed Diagnosis, Assessment Plan Problem List/A P: 1. Aortic stenosis, severe -worsening symptoms with decreased exercise yaron erance and exertional dyspnea -harsh murmur heard -per patient likely aortic valve replac ement to be preformed after glucose is better controlled. 2. Coronary artery disease involving [place] cor onary artery -s/p [facility] with aortic angiogram which showed mul tivessels CAD -evaluation by Dr. Aragon, AVR with/without CA BG 3. Thoracic aortic aneurysm, without rupture -s/p [facility] with aortic angiogram dilated ascendin g thoracic aneurysm 4.3 cm -evaluation for possible TAA repair 4. DM2 (diabetes mellitus, type 2) -improving, POC glucose 250-150 -Lantus 35 units BID -glipizide 5mg BID AC -Lispro 8 unit AC 5. HTN (hypertension), benign -carvedilol 12.5 mg q12 -lisinopril 20mg BID 6. Obesity (BMI 30-39.9) -dietary recommendations made -follow-up with pcp as outpatient Free Text DxA P Notes Free text DxA P notes: 66 yoM with known h/o CAD s/ p multiple PTCIs, and severe aortic stenosis. Pt has been experiencing decreased exercise tolerance w ith worsening dyspnea of exertion with ADL. -s/p [facility] with aortic angiogr am which showed multivessels CAD and severe with dilated ascending thoracic aneurysm 4.3 cm -glucose improving -11/27 ECHO: EF 55-60%, grade I diastolic dysfunc tion. Aortic valve severe stenosis -11/27 Carotid U/S: 1-19% stenosis involing R car otid aretery bifurcation and left artery bifurcation; ant egrade flow noted in the right vertebral artery and left vertebral artery DVT and GI prophylaxis Full Code dispo: home once glucose improved and cleared by cardiology Quality: Gen Med Crit Care VTE Prophylaxis VTE prophylaxis initiated: yes (Lovenox) Current Medications Current medication review: I attest that the foregoing medication list in t he medical record is true, accurate, and complete to the best of my knowled ge. Advanced Care Plan 65 or Older Discussed with: patient, surrogate decis. maker ( and daughter) Discussion included: code status (full code) Attestations Attestation needed: teaching physician Billy Maxwell 11/27/214: Attestations Teaching Physician Attestation F/U visit w/ resident: I saw the patient with the resident and . . . agree with the resident's findings and plan. agree with the resident's findings and plan EXCE PT: start tricore for charlene TGC Electronically Signed by Bennie Pacheco DO R1 on at 1645 Electronically Signed by Billy Maxwell MD on 2 at 2105 RPT #:[id number] END OF REPORT 2021-11-27 03:51:00-00:00 [id number] [address] PATIENT NAME: GARCÍA MARRERO ADMIT DATE: 11/16 ACCOUNT NO: [id number] ROOM NO: Z.362 AGE: 66 REPORT TYPE: ELECTROCARDIOGRAM SEX: M ADMITTING PHYSICIAN:Faustino Mercado MD ATTENDING PHYSICIAN:Faustino Mercado MD Order: [id number] Test Reason : CAD Test Date/Time Stamp: SatNov 27 2021 03:51:09 Blood Pressure : / mmHG Vent. Rate : 056 BPM Atrial Rate : 056 BPM P-R Int : 206 ms QRS Dur : 112 ms QT Int : 488 ms P-R-T Axes : 048 -08 083 degree s QTc Int : 470 ms Sinus bradycardia Nonspecific T wave abnormality Prolonged QT Abnormal ECG When compared with ECG of 26-NOV-2021 05:50, No significant change was found Confirmed by SHAHID JENSEN ([id number]) on 11/27/2021 6:27:31 AM Referred By: Shahid Jensen Confirmed by:SHAHID VERDUGO at 0627 PATIENT NAME: GARCÍA MARRERO [id number] 2021-11-27 03:51:00-00:00 [id number] [place] [address] PATIENT NAME: GARCÍA MARRERO ADMIT DATE: 11/16 ACCOUNT NO: [id number] [employer] NO: Z.362 AGE: 66 REPORT TYPE: ELECTROCARDIOGRAM SEX: M ADMITTING PHYSICIAN:Faustino Mercado MD ATTENDING PHYSICIAN:Faustino Mercado MD Order: [id number] Test Reason : CAD Test Date/Time Stamp: SatNov 27 2021 03:51:09 Blood Pressure : / mmHG Vent. Rate : 056 BPM Atrial Rate : 056 BPM P-R Int : 206 ms QRS Dur : 112 ms QT Int : 488 ms P-R-T Axes : 048 -08 083 degree s QTc Int : 470 ms Sinus bradycardia Nonspecific T wave abnormality Prolonged QT Abnormal ECG When compared with ECG of 26-NOV-2021 05:50, No significant change was found Confirmed by SHAHID JENSEN ([id number]) on 11/27/2021 1:28:45 PM Referred By: Shahid Jensen Confirmed by:SHAHID VERDUGO at 1328 PATIENT NAME: GARCÍA MARRERO [id number] 2021-11-26 20:50:00-00:00 [id number] [place] [id number] PATIENT NAME: GARCÍA MARRERO ADMIT DATE: 11/16 ACCOUNT NO: [id number] ROOM NO: [facility] AGE: 66 REPORT TYPE: PROGRESS NOTE SEX: M ADMITTING PHYSICIAN:Billy Maxwell MD ATTENDING PHYSICIAN:Billy Maxwell MD DATE: 11/26/2021 The patient is seen at the [facility] in the telemetry unit. The patient currently is stable. Blood sugar is still elevated in the 300 range. Medical team is correcting that. The patient's case discussed wi th the patient and family at the bedside. Dictated By: Wil Aragon MD WT: PN:SHU/LALO/ESEQUIEL Conf#: [id number]/DID#: [id number] Authenticated by Wil Aragon MD On 022 01:32:56 PM at 0132 PATIENT NAME: GARCÍA MARRERO [id number] 2021-11-26 15:52:00-00:00 [facility] ([facility] Hospitalist Progress Note REPORT#:[id number] REPORT STATUS: Signed DATE:11/26/21 TIME: 1552 PATIENT: GARCÍA MARRERO UNIT #: [id number] [facility] AGE: 66 SEX: M ATTEND: Jessica Mercado MD ADM AUTHOR: Faustino Mercado MD * ALL edits or amendments must be made on the [employer]/computer document * Subjective Chief complaint: worsening symptomatic aortic stenosis HPI: Pt seen sitting up in chair, denies cp/sob. He's been in sinusbrady rate 40-60s o/n. FSBG remains > 300s in last 24 hrs. He liang es increased thirst or urine output. He's been given insulin lantus last nigh t Review of Systems Constitutional: Denies: chills, fatigue, fev er, generalized weakness, lethargy, malaise, recent wt loss, other. Respiratory: Denies: PHELPS (dyspnea on exertion), hemoptysis, n on productive cough, parox nocturnal dyspnea, pleurisy, pleuritic pain, pneumonia, productive cough (sputum ), SOB, wheezing, other. Cardiovascular: Denies: chest pain, PHELPS (dyspnea on exer tion), edema, orthopnea, palpitations, parox nocturnal dyspnea, other. GI: Denies: abdominal pain, anorexia, constipation, diarrhea, dysphagia, GERD, hematemesis, hematochezia, h iatal hernia, melena, nausea, rectal pain, vomiting, other. : Denies: dysuria, flank pain, frequency, hematuria, nocturia, penile discharge, penile lesion, testicular pa in, testicular swelling, urgency, urinary retention, other. All systems rev neg: except as marked Objective General VS/I O: Vital Signs: Date Time Temp Pulse Resp B/P B/P Pulse O2 O2 F low FiO2 Mean Ox Delivery Rate 11/26 1116 97.7 53 20 126/86 99.6 98 Room air 11/26 0648 97.5 49 19 143/79 100.3 96 Room air 11/26 0430 97.7 48 18 158/82 107.6 98 Room air 11/26 0007 98.1 55 18 159/81 107.4 97 Room air 11/25 2028 97.9 53 17 166/93 117.2 97 Room air 11/25 1557 98.1 54 16 158/85 109.2 95 Room air 24 hour I O ending at 0700: 11/26 0700 11/25 1900 Intake Total 450 Output Total Balance 450 Intake, Oral 450 Number Voids 2 PATIENT WEIGHT: Weight (lb): Weight (oz): Weight (kg): Medications: Active Meds + DC'd Last 24 Hrs Carvedilol (COREG) 12.5 MG Q12HR PO Insulin Glargine (Lantus/Semglee) 25 UNITS BID S UBQ (DC) Insulin Glargine (Lantus/Semglee) 35 UNITS BID S UBQ Glipizide (GLUCOTROL TAB) 5 MG BID AC PO Insulin Glargine (Lantus/Semglee) 25 UNITS NOW O NE SUBQ (DC) Insulin Human Lispro (HumaLOG) 8 UNIT AC SUBQ Insulin Glargine (Lantus/Semglee) 25 UNITS NOW O NE SUBQ (DC) Aspirin (ASPIRIN EC) 81 MG DAILY PO Levothyroxine Sodium (Synthroid) 125 MCG DAILY P O Atorvastatin Calcium (LIPITOR) 80 MG BEDTIME PO Carvedilol (COREG) 25 MG Q12HR PO (DC) Insulin Glargine (Lantus/Semglee) 25 UNITS BEDTI ME SUBQ (DC) Lisinopril (PRINIVIL) 20 MG BID PO Nitroglycerin (NITRO-BID UD) 1 INCH Q6HR TRANSDE RM (DC) Insulin Human Lispro (HumaLOG) 5 UNIT AC SUBQ (D C) Enoxaparin Sodium (LOVENOX) 40 MG Q24H SUBQ Acetaminophen/Codeine Phosphate (TYLENOL WITH CO DEINE #3 (C-III)) 1 UDTAB Q4H PRN PRN PO Polyethylene Glycol (MIRALAX) 17 GM DAILY PRN CO N PO Senna/Docusate Sodium (SENOKOT S) 1 TAB BID PRN PRN PO Temazepam (RESTORIL (C-IV)) 15 MG BEDTIME PRN CO N PO Nitroglycerin (NITRO-BID UD) 1 INCH Q6H TRANSDER M Acetaminophen (TYLENOL) 650 MG Q4H PRN PRN PO Hydrocodone Bitart/Acetaminophen (NORCO 5/325 TA BLET (C-II)) 1 TAB Q4H PRN PRN PO Ondansetron HCl (ZOFRAN) 4 MG Q8H PRN PRN IV Sodium Chloride (SODIUM CHLORIDE 0.9%) 1,000 ML ONCE ONE IV (DC) Insulin Human Lispro (HumaLOG) MEDIUM DOSE SLIDI NG SCALE AC HS SUBQ Sodium Chloride (SODIUM CHLORIDE 0.9%) 1,000 ML Q10H IV (DC) Dextrose/Water (DEXTROSE 50% IN WATER) 12.5 GM A SDIR PRN IV Dextrose/Water (DEXTROSE 50% IN WATER) 25 GM ASD IR PRN IV Physical Exam General appearance: alert, awake, conversational , mental status normal Head/Eyes: atraumatic, clear cornea, normal conj unctiva/sclera ENT: moist mucosal membranes, normal dentition Neck: non-tender, no masses or swelling Cardiovascular: murmur, normal heart sounds, reg ular rate rhythm, systolic murmur radiates to carotid Respiratory: aerating well, clear to auscultatio n, symmetric expansion, no distress Abdomen: obese, non-tender, soft Extremities: moves all, no edema Musculoskeletal: normal inspection, no muscle sp asm Neuro/C[employer]ODWIND REEDS: alert, oriented X 3, normal speech, n o motor deficits Skin: dry, intact, no rash Results Findings/Data: Laboratory Tests 11/26 11/26 11/26 11/26 1353 0942 0601 0601 Chemistry Sodium (137 - 145 MMOL/L) 137 Potassium (3.5 - 5.1 MMOL/L) 4.1 Chloride (98 - 107 MMOL/L) 102 Carbon Dioxide (22 - 30 MMOL/L) 26 Anion Gap (14 - 24 MMOL/L) 13 L BUN (9 - 20 MG/DL) 21 H Creatinine (0.66 - 1.25 MG/DL) 1.20 Glomerular Filtr Rate > 60 Glucose (74 - 106 MG/DL) 308 *H POC Glucose (60 - 99 MG/DL) 325 *H 385 *H Mean Blood Glucose (70 - 110 MG/DL) 341 H Hemoglobin A1c (4.8 - 5.9 %) 13.5 H Calcium (8.4 - 10.2 MG/DL) 8.9 Total Bilirubin (0.2 - 1.3 MG/DL) 0.5 AST (17 - 59 UNITS/L) 32 ALT (0 - 49 UNITS/L) 40 Total Alk Phosphatase (38 - 126 UNITS/L) 91 Total Protein (6.2 - 7.6 G/DL) < 2.0 L Albumin (3.5 - 5.0 G/DL) 3.9 11/25 2010 Chemistry POC Glucose (60 - 99 MG/DL) 318 *H Laboratory Tests 11/26 0601 Hematology WBC (3.8 - 9.8 K/MM3) 6.6 RBC (3.95 - 5.67 M/MM3) 4.54 Hgb (12.4 - 16.7 G/DL) 13.4 Hct (35.9 - 49.5 %) 40.8 MCV (81.7 - 96.1 fL) 90 MCH (27.6 - 33.2 pg) 29.5 MCHC (32.9 - 35.5 %) 32.8 L RDW (12.1 - 15.2 %) 12.5 Plt Count (129 - 368 K/MM3) 160 MPV (7.4 - 10.4 fl) 10.8 H Neut % (Auto) (43 - 75 %) 53.1 Lymph % (Auto) (14 - 44 %) 37.5 [place] % (Auto) (4 - 13 %) 6.5 Eos % (Auto) (0 - 6 %) 2.1 Baso % (Auto) (0 - 2 %) 0.5 Neut # (Auto) (2.0 - 7.6 K/mm3) 3.53 Lymph # (Auto) (1.0 - 3.8 K/mm3) 2.49 [place] # (Auto) (0.1 - 0.8 K/mm3) 0.43 Eos # (Auto) (0.0 - 0.2 K/mm3) 0.14 Baso # (Auto) (0.0 - 0.2 K/mm3) 0.03 Immature Gran % (0.0 - 2.0 %) 0.3 Nucleated RBC % (0 - 1.0 %) 0.0 Nucleated RBCs # (Man) (0.0 - 0.1 K/mm3) 0.00 Diagnosis, Assessment Plan Problem List/A P: 1. Aortic stenosis, severe worsening symptoms with decreased exercise tole komal and exertional dyspnea 2. Coronary artery disease involving shinnecock cor onary artery Multivessels CAD of shinnecock vessels 3. Thoracic aortic aneurysm, without rupture 4.3 cm ascending aortic aneurysm 4. DM2 (diabetes mellitus, type 2) Still uncontrolled with hyperglycemia after bas al insulin started. pt was insulin naive. Hgb A1c > 13 Will increase lantus 35 units bid, first dose n ow, and add premeal lispro 8 units trial of glipizide 5 mg bid. Will hold metformi n for now. 5. HTN (hypertension), benign controlled on current meds 6. Obesity (BMI 30-39.9) creatinine 1.4, likely chronic. Will monitor Free Text DxA P Notes Free text DxA P notes: 11/25/21 s/p C with aortic angiogram which show ed multivessels CAD and severe with dilated ascending thoracic aneurysm 4.3 cm - admit for cardiothoracic evaluation for AVR w ith possible CABG as well. Pt may also be candidate for TAA repair. - Start insulin for better diabete controlled - Resume asa and statin. Hold brillenta and met formin 11/26/2021 hyperglycemia > 300 persists o/n despite startin g insulin lantus 25 units bedtime. pt insulin naive. Pt noted to have asym ptomatic bradycardia - Increase lantus 35 units bid, first dose now - Add premeal lispro 8 units QAC and start tria l of glipizide - Decrease coreg 12.5 mg bid due to bradycardia - Await evalaution for AVR with/without CABG an d TAA repair by Dr Aragon DVT and GI prophylaxis Full Code per pt's andf family's request Quality: Gen [facility] Crit Care VTE Prophylaxis VTE prophylaxis initiated: yes (Lovenox) Current Medications Current medication review: I attest that the foregoing medication list in t he medical record is true, accurate, and complete to the best of my knowled ge. Advanced Care Plan 65 or Older Discussed with: patient, surrogate decis. maker ( and daughter) Discussion included: code status (full code) Electronically Signed by Faustino Mercado MD on at 1601 RPT #:[id number] END OF REPORT 2021-11-26 07:10:00-00:00 [facility] ([facility]) Cardiology Progress Note REPORT#:[id number] REPORT STATUS: Signed DATE:11/26/21 TIME: 709 PATIENT: GARCÍA MARRERO UNIT #: [id number] [facility] AGE: 66 SEX: M ATTEND: Jessica Mercado MD ADM AUTHOR: Aidee Armstrong MD * ALL edits or amendments must be made on the el [employer]/computer document * Subjective Chief complaint: CAD Patient reports: No: chest pain, palpitations, shortness of breat h. Objective General VS/I O: 24 hour I O ending at 0700: 11/26 0700 11/25 1900 Intake Total 450 Output Total Balance 450 Intake, Oral 450 Number Voids 2 Vital Signs: Date Time Temp Pulse Resp B/P B/P Pulse O2 O2 F low FiO2 Mean Ox Delivery Rate 11/26 0548 97.5 49 19 143/79 100.3 96 Room air 11/26 0430 97.7 48 18 158/82 107.6 98 Room air 11/26 0007 98.1 55 18 159/81 107.4 97 Room air 11/26 2027 97.9 53 17 166/93 117.2 97 Room air 11/25 1557 98.1 54 16 158/85 109.2 95 Room air PATIENT WEIGHT: Weight (lb): Weight (oz): Weight (kg): Medications: Active Meds + DC'd Last 24 Hrs Aspirin (ASPIRIN EC) 81 MG DAILY PO Levothyroxine Sodium (Synthroid) 125 MCG DAILY P O Atorvastatin Calcium (LIPITOR) 80 MG BEDTIME PO Carvedilol (COREG) 25 MG Q12HR PO Insulin Glargine (Lantus/Semglee) 25 UNITS BEDTI ME SUBQ Lisinopril (PRINIVIL) 20 MG BID PO Nitroglycerin (NITRO-BID UD) 1 INCH Q6HR TRANSDE RM (DC) Nitroglycerin (NITRO-BID UD) 1 INCH Q6HR TRANSDE RM (DC) Insulin Human Lispro (HumaLOG) 5 UNIT AC SUBQ Enoxaparin Sodium (LOVENOX) 40 MG Q24H SUBQ Acetaminophen/Codeine Phosphate (TYLENOL WITH CO DEINE #3 (C-III)) 1 UDTAB Q4H PRN PRN PO Polyethylene Glycol (MIRALAX) 17 GM DAILY PRN CO N PO Senna/Docusate Sodium (SENOKOT S) 1 TAB BID PRN PRN PO Temazepam (RESTORIL (C-IV)) 15 MG BEDTIME PRN CO N PO Insulin Glargine (Lantus/Semglee) 20 UNITS NOW O NE SUBQ (DC) Nitroglycerin (NITRO-BID UD) 1 INCH Q6H TRANSDER M Nitroglycerin (NITRO-BID UD) 0 .STK-MED ONE Z (D C) Nitroglycerin (NITRO-BID UD) 0 .STK-MED ONE Z (D C) Acetaminophen (TYLENOL) 650 MG Q4H PRN PRN PO Hydrocodone Bitart/Acetaminophen (NORCO 5/325 TA BLET (C-II)) 1 TAB Q4H PRN PRN PO Ondansetron HCl (ZOFRAN) 4 MG Q8H PRN PRN IV Sodium Chloride (SODIUM CHLORIDE 0.9%) 1,000 ML ONCE ONE IV (DC) Insulin Human Lispro (HumaLOG) 0 .STK-MED ONE .R OUTE (DC) Heparin Sodium/Sodium Chloride (HEPARIN 1000 UNI TS/NS 500ML) 500 ML .STK-MED ONE IV (DC) Midazolam HCl (VERSED (C-IV)) 0 .STK-MED ONE .RO FLANDREAU (DC) Fentanyl Citrate (SUBLIMAZE (C-II)) 0 .STK-MED O NE .ROUTE (DC) Midazolam HCl (VERSED (C-IV)) 0 .STK-MED ONE .RO FLANDREAU (DC) Insulin Human Lispro (HumaLOG) MEDIUM DOSE SLIDI NG SCALE AC HS SUBQ Insulin Human Lispro (HumaLOG) 0 .STK-MED ONE .R OUTE (DC) Magnesium Sulfate (MAG SULFATE 2GM PREMIX) 50 M L ONCE ONE IV (DC) Sodium Chloride (SODIUM CHLORIDE 0.9%) 1,000 ML Q10H IV (DC) Dextrose/Water (DEXTROSE 50% IN WATER) 12.5 GM A SDIR PRN IV Dextrose/Water (DEXTROSE 50% IN WATER) 25 GM ASD IR PRN IV Physical Exam General appearance: alert, awake, oriented Head/Eyes: atraumatic, normocephalic ENT: moist mucosal membranes Neck: no JVD Cardiovascular: CV assessment: regular rate and rhythm Respiratory: clear to auscultation, no distress Lower extremity: LE assessment: no edema Musculoskeletal: full range of motion Neuro/CUTTER WOODWIND REEDS: alert, oriented X 3, CN II-XII intact Skin: dry, intact Wound/incision: Site condition: dressing clean dry Psychiatry: normal affect, normal judgment/insig ht, normal mood Results Findings/Data: Laboratory Tests 11/25 11/25 0856 0851 Blood Gas O2 Saturation (92.0 - 98.5 %) 77.2 L ABG pH (7.35 - 7.45) 7.289 *L ABG pCO2 (35.0 - 45.0 mmHg) 54.1 *H ABG pO2 (75.0 - 100.0) 47.4 *L ABG HCO3 (20.0 - 26.0 MMOL/L) 25.9 ABG Base Excess (-3.0 - 3.0 MMOL/L) -1.5 VBG pH (7.35 - 7.45) 7.309 L VBG pCO2 (35.0 - 45.0 mmHg) 50.1 H VBG pO2 (0 - 40 mmHG) 36.5 VBG HCO3 (20 - 26 MMOL/L) 25.2 VBG O2 Saturation (72 - 77 %) 63.6 L VBG Base Excess (-3.0 - 3.0 MMOL/L) -1.7 Sodium (135 - 141 MMOL/L) 135 Potassium (3.7 - 4.7 MMOL/L) 3.5 L Chloride (MEQ/L) 102 Ionized Calcium (1.13 - 1.32 MMOL/L) 1.16 Instrument (Specimen Descript) Venous Arterial Laboratory Tests 11/26 11/25 11/25 11/25 11/25 0601 2010 1513 1238 1032 Chemistry Sodium (137 - 145 MMOL/L) 137 Potassium (3.5 - 5.1 MMOL/L) 4.1 Chloride (98 - 107 MMOL/L) 102 Carbon Dioxide (22 - 30 MMOL/L) 26 Anion Gap (14 - 24 MMOL/L) 13 L BUN (9 - 20 MG/DL) 21 H Creatinine (0.66 - 1.25 MG/DL) 1.20 Glomerular Filtr Rate > 60 Glucose (74 - 106 MG/DL) 308 *H POC Glucose (60 - 99 MG/DL) 318 *H 307 *H 290 H 356 *H Calcium (8.4 - 10.2 MG/DL) 8.9 Total Bilirubin (0.2 - 1.3 MG/DL) 0.5 AST (17 - 59 UNITS/L) 32 ALT (0 - 49 UNITS/L) 40 Total Alk Phosphatase (38 - 126 91 UNITS/L) Total Protein (6.2 - 7.6 G/DL) < 2.0 L Albumin (3.5 - 5.0 G/DL) 3.9 11/25 11/25 11/25 0856 0851 0818 Chemistry POC Glucose (60 - 99 MG/DL) 418 *H 452 *H POC Lactic Acid (0.7 - 2.0 mmol/L) 1.41 1.39 Laboratory Tests 11/26 0601 Hematology WBC (3.8 - 9.8 K/MM3) 6.6 RBC (3.95 - 5.67 M/MM3) 4.54 Hgb (12.4 - 16.7 G/DL) 13.4 Hct (35.9 - 49.5 %) 40.8 MCV (81.7 - 96.1 fL) 90 MCH (27.6 - 33.2 pg) 29.5 MCHC (32.9 - 35.5 %) 32.8 L RDW (12.1 - 15.2 %) 12.5 Plt Count (129 - 368 K/MM3) 160 MPV (7.4 - 10.4 fl) 10.8 H Neut % (Auto) (43 - 75 %) 53.1 Lymph % (Auto) (14 - 44 %) 37.5 [place] % (Auto) (4 - 13 %) 6.5 Eos % (Auto) (0 - 6 %) 2.1 Baso % (Auto) (0 - 2 %) 0.5 Neut # (Auto) (2.0 - 7.6 K/mm3) 3.53 Lymph # (Auto) (1.0 - 3.8 K/mm3) 2.49 [place] # (Auto) (0.1 - 0.8 K/mm3) 0.43 Eos # (Auto) (0.0 - 0.2 K/mm3) 0.14 Baso # (Auto) (0.0 - 0.2 K/mm3) 0.03 Immature Gran % (0.0 - 2.0 %) 0.3 Nucleated RBC % (0 - 1.0 %) 0.0 Nucleated RBCs # (Man) (0.0 - 0.1 K/mm3) 0.00 Diagnosis, Assessment Plan Free Text DxA P Notes Free Text DxA P Notes: IMP: CAD - 3 vessel - severe TAA DM Plan: Glucose control Plan ACB, AVR. CTA aorta. at 1826 RPT #:[id number] END OF REPORT 2021-11-26 05:50:00-00:00 [id number] [place] [id number] PATIENT NAME: GARCÍA MARRERO ADMIT DATE: 11/16 ACCOUNT NO: [id number] ROOM NO: Z.406 AGE: 66 REPORT TYPE: ELECTROCARDIOGRAM SEX: M ADMITTING PHYSICIAN:Faustino Mercado MD ATTENDING PHYSICIAN:Faustino Mercado MD Order: [id number] Test Reason : CAD Test Date/Time Stamp: SatNov 26 2021 05:50:11 Blood Pressure : / mmHG Vent. Rate : 050 BPM Atrial Rate : 050 BPM P-R Int : 224 ms QRS Dur : 090 ms QT Int : 482 ms P-R-T Axes : 040 -04 082 degree s QTc Int : 439 ms Sinus bradycardia with 1st degree AV block Nonspecific ST and T wave abnormality Abnormal ECG When compared with ECG of 25-NOV-2021 10:20, T wave inversion no longer evident in Inferior l liz Confirmed by SHAHID JENSEN ([id number]) on 11/26/2021 6:45:27 AM Referred By: Shahid Jensen Confirmed by:SHAHID VERDUGO at 0645 PATIENT NAME: GARCÍA MARRERO [id number] 2021-11-26 05:50:00-00:00 [id number] [place] [id number] PATIENT NAME: GARCÍA MARRERO ADMIT DATE: 11/16 ACCOUNT NO: [id number] ROOM NO: Z.362 AGE: 66 REPORT TYPE: ELECTROCARDIOGRAM SEX: M ADMITTING PHYSICIAN:Faustino Mercado MD ATTENDING PHYSICIAN:Faustino Mercado MD Order: [id number] Test Reason : CAD Test Date/Time Stamp: SatNov 26 2021 05:50:11 Blood Pressure : / mmHG Vent. Rate : 050 BPM Atrial Rate : 050 BPM P-R Int : 224 ms QRS Dur : 090 ms QT Int : 482 ms P-R-T Axes : 040 -04 082 degree s QTc Int : 439 ms Sinus bradycardia with 1st degree AV block Nonspecific ST and T wave abnormality Abnormal ECG When compared with ECG of 25-NOV-2021 10:20, T wave inversion no longer evident in Inferior l liz Confirmed by SHAHID JENSEN ([id number]) on 11/27/2021 1:28:40 PM Referred By: Shahid Jensen Confirmed by:SHAHID VERDUGO at 1328 PATIENT NAME: GARCÍA MARRERO [id number] 2021-11-25 15:39:00-00:00 [facility] ([facility] Hospitalist History Physical REPORT#:[id number] REPORT STATUS: Signed DATE:11/25/21 TIME: 1539 PATIENT: GARCÍA MARRERO UNIT #: [id number] ROOM/BED: [address] : 55 AGE: 66 SEX: M ATTEND: Yennifer Mercado MD ADM AUTHOR: Faustino Mercado MD * ALL edits or amendments must be made on the [employer]/computer document * History of Present Illness HPI Chief complaint: worsening symptomatic aortic stenosis PCP: PCP: Golden Awad MD HPI: 66 yoM with known h/o CAD s/ p multiple PTCIs, and severe aortic stenosis brought in today for elective left and right cardiac cat hertization and aortic root angiogram to assess CAD and changes in aortic stenosis. Pt has been experiencing decreased exercise tolerance with worsen ing dyspnea of exertion with ADL. He's been followed by Dr Jensen outpatient whosed la st echo done 10/2021 showed aortic valve area 0.86 and m gildardo gradient across valve of 63 mmHg. Pt's ascending aorta is also noted at 4.2 cm. Today's cardiac a ngiogram showed 3-vessels CAD with 3-vessels CAD. Pt admitted await cardioitho marlen evaluation for possible surgical AVR vs TAVR, and ACB surgery wi th or without thoracic aortic aneurysm repair. Pt currently is rest ing comfortabvly in bed with family at bedside. He's in NSR. Pmhx: HTN, DM2, HLD, h/o severe , CAD s/p PTCI x6 Pshx: B/l Knee replacement, Carpal tunnel surger y, Lasik eye surgery Social hx: , living with , no tobacco or etoh family hx: Positive for artherosclerotic disease . History Past Medical Surgical Hx Additional surgical history: Bilateral knee surgery. Right nasal/facial surgery. Family History Additional family history: Mother o heart disease. Father of alcoholic cirrhosis. Social History Alcohol use: Denies EtOH use Drug use: Denies recreational drugs Smoking status: Smoking status for patients 13 years old or old er: Never Smoker Other social history: Employed Additional social history: ; one daughter. Medication/Allergy-Vaccine Hx Allergies: Coded Allergies: No Known Allergies (01/10/19) Review of Systems Constitutional: Denies: chills, fatigue, fev er, generalized weakness, lethargy, malaise, recent wt loss, other. Respiratory: Reports: PHELPS (dyspnea on exertion). Denies: hemo ptysis, non productive cough, parox nocturnal dyspnea, ple urisy, pleuritic pain, pneumonia, productive cough ( sputum), SOB, wheezing, other. Cardiovascular: Reports: PHELPS (dyspnea on exertion). Denies: ches t pain, edema, orthopnea, palpitations, parox nocturnal dyspnea, other. GI: Denies: abdominal pain, anorexia, constipation, diarrhea, dysphagia, GERD, hematemesis, hematochezia, h iatal hernia, melena, nausea, rectal pain, vomiting, other. : Denies: dysuria, flank pain, frequency, hematuria, nocturia, penile discharge, penile lesion, testicular pa in, testicular swelling, urgency, urinary retention, other. All systems rev neg: except as noted Physical Exam VS/I O: Patient Weight and BMI Weight (kg): BMI: General appearance: obese, alert, awake Head/Eyes: atraumatic, clear cornea, normal conj unctiva/sclera ENT: moist mucosal membranes, normal dentition Neck: non-tender, no masses or swelling Cardiovascular: murmur, normal heart sounds, reg ular rate rhythm, systolic murmur radiates to carotid Respiratory: aerating well, clear to auscultatio n, symmetric expansion, no distress Abdomen: obese, non-tender, soft Extremities: moves all, no edema Musculoskeletal: normal inspection, no muscle sp asm Neuro/CUTTER WOODWIND REEDS: alert, oriented X 3, normal speech, n o motor deficits Skin: dry, intact, no rash Results Findings/Data: Laboratory Tests: 11/25 11/25 11/25 11/25 11/25 1513 1238 1032 0856 0851 Blood Gas O2 Saturation (92.0 - 98.5 %) 77.2 L ABG pH (7.35 - 7.45) 7.289 *L ABG pCO2 (35.0 - 45.0 mmHg) 54.1 *H ABG pO2 (75.0 - 100.0) 47.4 *L ABG HCO3 (20.0 - 26.0 MMOL/L) 25.9 ABG Base Excess (-3.0 - 3.0 MMOL/L) -1.5 VBG pH (7.35 - 7.45) 7.309 L VBG pCO2 (35.0 - 45.0 mmHg) 50.1 H VBG pO2 (0 - 40 mmHG) 36.5 VBG HCO3 (20 - 26 MMOL/L) 25.2 VBG O2 Saturation (72 - 77 %) 63.6 L VBG Base Excess (-3.0 - 3.0 MMOL/L) -1.7 Sodium (135 - 141 MMOL/L) 135 Potassium (3.7 - 4.7 MMOL/L) 3.5 L Chloride (MEQ/L) 102 Ionized Calcium (1.13 - 1.32 MMOL/L) 1.16 Instrument (Specimen Descript) Venous Arterial Chemistry POC Glucose (60 - 99 MG/DL) 307 *H 290 H 356 *H 418 *H POC Lactic Acid (0.7 - 2.0 mmol/L) 1.41 1.39 11/25 11/25 11/25 0818 0536 0512 Chemistry Sodium (137 - 145 MMOL/L) 131 L Potassium (3.5 - 5.1 MMOL/L) 4.2 Chloride (98 - 107 MMOL/L) 98 Carbon Dioxide (22 - 30 MMOL/L) 23 Anion Gap (14 - 24 MMOL/L) 14 BUN (9 - 20 MG/DL) 32 H Creatinine (0.66 - 1.25 MG/DL) 1.40 H Glomerular Filtr Rate 51 Glucose (74 - 106 MG/DL) 471 *H POC Glucose (60 - 99 MG/DL) 452 *H Calcium (8.4 - 10.2 MG/DL) 9.3 Magnesium (1.6 - 2.3 MG/DL) 1.8 Triglycerides (150 - 199 MG/DL) 838 H Cholesterol (<200 MG/DL) 211 LDL Cholesterol Measurd (0 - 99 MG/DL) 71 HDL Cholesterol (40 - 59 MG/DL) 40 Coagulation INR (0.86 - 1.14) 0.9 APTT (26.2 - 35.4 SECONDS) 34.2 PT Patient/Control Mix (9.4 - 12.7 SECONDS) 9.8 Hematology WBC (3.8 - 9.8 K/MM3) 8.9 RBC (3.95 - 5.67 M/MM3) 4.64 Hgb (12.4 - 16.7 G/DL) 14.0 Hct (35.9 - 49.5 %) 40.9 MCV (81.7 - 96.1 fL) 88 MCH (27.6 - 33.2 pg) 30.2 MCHC (32.9 - 35.5 %) 34.2 RDW (12.1 - 15.2 %) 12.4 Plt Count (129 - 368 K/MM3) 192 MPV (7.4 - 10.4 fl) 10.6 H Neut % (Auto) (43 - 75 %) 51.7 Lymph % (Auto) (14 - 44 %) 38.7 [place] % (Auto) (4 - 13 %) 6.8 Eos % (Auto) (0 - 6 %) 1.9 Baso % (Auto) (0 - 2 %) 0.6 Neut # (Auto) (2.0 - 7.6 K/mm3) 4.62 Lymph # (Auto) (1.0 - 3.8 K/mm3) 3.46 [place] # (Auto) (0.1 - 0.8 K/mm3) 0.61 Eos # (Auto) (0.0 - 0.2 K/mm3) 0.17 Baso # (Auto) (0.0 - 0.2 K/mm3) 0.05 Immature Gran % (0.0 - 2.0 %) 0.3 Nucleated RBC % (0 - 1.0 %) 0.0 Nucleated RBCs # (Man) (0.0 - 0.1 K/mm3) 0.00 Serology SARS-CoV-2 Ag (Rapid) (Negative) NEGATIVE Laboratory Tests 11/25/21 0536: [Embedded Image Not Available] Diagnosis, Assessment Plan Problem List/A P: 1. Aortic stenosis, severe worsening symptoms with decreased exercise tole komal and exertional dyspnea 2. Coronary artery disease involving shinnecock cor onary artery Multivessels CAD of sh[place]cock vessels 3. Thoracic aortic aneurysm, without rupture 4.3 cm ascending aortic aneurysm 4. DM2 (diabetes mellitus, type 2) uncontrolled with hyperglycemia Will start insulin therapy 5. HTN (hypertension), benign controlled on current meds 6. Obesity (BMI 30-39.9) creatinine 1.4, likely chronic. Will monitor Free Text A P: 11/25/21 s/p C with aortic angiogram which show ed multivessels CAD and severe with dilated ascending thoracic aneurysm 4.3 cm - admit for cardiothoracic evaluation for AVR w ith possible CABG as well. Pt may also be candidate for TAA repair. - Start insulin for better diabete controlled - Resume asa and statin. Hold brillenta and met formin DVT and GI prophylaxis Full Code per pt's andf family's request Quality: Gen Med Crit Care VTE Prophylaxis VTE prophylaxis initiated: yes (Lovenox) Current Medications Current medication review: I attest that the foregoing medication list in t he medical record is true, accurate, and complete to the best of my knowled ge. Advanced Care Plan 65 or Older Discussed with: patient, surrogate decis. maker ( and daughter) Discussion included: code status (full code) Electronically Signed by Faustino Mercado MD on at 1601 RPT #:[id number] END OF REPORT 2021-11-25 14:54:00-00:00 [id number] [address] PATIENT NAME: GARCÍA MARRERO ADMIT DATE: 11/16 ACCOUNT NO: [id number] ROOM NO: Z.[facility] AGE: 66 REPORT TYPE: CONSULTATION REPORT SEX: M ADMITTING PHYSICIAN:Billy Maxwell MD ATTENDING PHYSICIAN:Billy Maxwell MD CONSULTATION DATE: 11/25/2021 CONSULTING PHYSICIAN: Wil Aragon MD The patient seen at bedside in the cardiac cath recovery area. DIAGNOSES: Coronary artery disease, aortic steno sis, hypertension, hyperlipidemia, and diabetes. BRIEF HISTORY: This is a 66-year-old man who had previous stents for coronary artery disease. He has aortic stenosis, valve ar ea of 0.86 with significant gradient 85 mmHg on cardiac catheterization, echocardiogram demonstrates he has had carotid duplex imaging, which is nor mal for both carotids, currently is on aspirin. The patient also on Brilinta. It is unc lear that was stopped on the , but not clear. The nissa ent had hypertension, hyperlipidemia, and diabetes. The patient had cardiac cath, which quiana ws multivessel disease with 70% lesion bifurcation LAD and diagonal, 90% at the PDA, PL and then 80% in the proximal LAD, 70% in the circumflex system. Pulmo nary artery pressure 51/24. The aortic valve area is 0.87. Ejection fraction 60%. REVIEW OF SYSTEMS: Otherwise is negative. No his tory of hemophilia, coagulopathy, varicose vein stripping or phlebit is. The patient had previous knee surgery, previous eye surgery and previous carpal tunnel surgery. ALLERGIES: HE HAS NO ALLERGIES TO MEDICATION. PHYSICAL EXAMINATION: GENERAL: Demonstrates an overweight male, in no apparent distress. NECK: No carotid bruits. Carotid pulse present. Radial pulse present. CHEST: Clear. HEART: Regular rate and rhythm with a systolic m urmur consistent with aortic stenosis. ABDOMEN: Soft and nontender without masses. EXTREMITIES: Femoral, popliteal pulse present. P edal pulse absent. BREASTS AND RECTAL: Not done. NEUROLOGIC: Physiological. ASSESSMENT: Coronary artery disease, severe aort ic stenosis. PLAN: The patient will need to have aortic valve replacement and coronary artery bypass. The patient has been on Brilinta, we are going to stop for average of 10 days prior to doing surgery. The patient also has blood sugar out PATIENT NAME: GARCÍA MARRERO [id number] of control with high glucose in the high 300 ran ge. The patient is being admitted for hyperglycemic management and we dev l repeat the echocardiogram while here in the hospital. The patient also has dilation of the aorta about 4.2 cm[address] We will do CT scan o f the chest without contrast also to evaluate that. The patient needs coronary artery bypass, aorti c valve replacement. The procedure, the alternatives, possible risks and complications including the inherent and other risks of surgery were explain ed to the patient and family understands and wants to proceed, had a chance t o ask questions, wants to proceed. Dictated By: Wil Aragon MD WT: CON:Z.MIKHAIL/LALO/NTS Conf#: [id number]#: [id number] Authenticated by Wil Aragon MD On 022 01:32:55 PM at 0132 PATIENT NAME: GARCÍA MARRERO [id number] 2021-11-25 10:41:00-00:00 [id number] [place] [address] PATIENT NAME: GARCÍA MARRERO ADMIT DATE: 11/16 ACCOUNT NO: [id number] ROOM NO: .[facility] AGE: 66 REPORT TYPE: CARDIAC CATHETERIZATION REPORT SEX: M ADMITTING PHYSICIAN:Petra Schmitt MD ATTENDING PHYSICIAN:Petra Schmitt MD PROCEDURE DATE: 11/25/2021 CARDIOLOGY PROCEDURE SHOP WORKER: Shahid Jensen MD TITLE OF THE PROCEDURES: 1. Right and left heart cardiac catheterization. 2. Selective JEFFERSON angiogram. 3. Aortic root angiogram. 4. Sealing device. INDICATION FOR THE PROCEDURE: Dyspnea, coronary artery disease, previous stents, thoracic aortic aneurysm, and severe aor tic stenosis. ESTIMATED BLOOD LOSS: Minimal. COMPLICATIONS: None. CONTRAST: 120 mL. ANESTHESIA: Conscious sedation with Versed and f entanyl. A 1% lidocaine for local anesthesia. FINAL DIAGNOSES: Severe aortic stenosis with a m gildardo gradient of 61 mmHg, three-vessel coronary artery disease, patent stents, dilated ascending aorta at 4.3 cm. Good JEFFERSON for bypass. The recommendation is aortic valve replacement, ascending aneurysm repair, and quadruple bypass to the LAD, second diagonal, left posterolateral branch, and right PDA. ESTIMATED BLOOD LOSS: Minimal. COMPLICATIONS: None. CONTRAST: 120 mL. ANESTHESIA: Conscious sedation with Versed and f entanyl and 1% lidocaine for local anesthesia. PROCEDURE IN DETAIL: After informed consent, the patient was brought to the cardiac catheterization lab in a stable fasting nonsedated state. He was prepped and draped in the usual sterile fashion. After conscious sedation, 1% PATIENT NAME: GARCÍA MARRERO [id number] lidocaine was administered to the right common femoral artery and right common femoral vein area for local anesthesia. A 6-Fren ch sheath was placed in the right common femoral artery and 7-[place] Zealander sheath in the right common femoral vein using standard techniques and fluoroscop y. After heparinization, left coronary angiogram showed calcified a rteries. The LAD after an early origin of the first diagonal was 80%. The stent was patent and the L AD diagonal is jailed at 70%. The ostial circumflex 70%, t hen the stents are patent. Right coronary angiogram showed 30% proximal disease, then the stent is patent. Then, distally, there is 50 and 90% disease. The PDA is diffusely disease d at 90% and 80%. The posterolateral branch of the circumflex had a 60 % distal disease. Left ventricular angiogram showed ejection fraction o f 60%, left ventricular end-diastolic pressure of 14 and a significant aortic valve gradient from 203 to 118. The selective JEFFERSON showed the JEFFERSON to be a good vessel suitable for bypass. The ascending aortic angiogram showed an ascending aorta of 4.3 cm. The measurements from the Maynard catheter: The RA was 12/10/8. The RV was 39/5/8. The PA was 51/24/33. The wedge pressure was 17/14/14. The arterial saturation was 97%. The PA saturation was 63.6%. The mean gradient across the valve was 61.29 mmHg. The cardiac output by ther modilution was 5.95 with an index of 2.53 and a valve area of 0.87 cm2. The Nikole cardiac output was 4.13 with an index of 1.76. We will order to calculate it and the valve area should be lower. It is still being calculated. The righ t groin was sealed using Angio-Seal. The venous sheath was pulled. There were no complications. The patient tolerated the procedure well. He was tra nsferred back to the holding area for observation. He will be getting a surgi evaristo consultation and then we will decide on the timing of surgery. Dictated By: Shahid Jensen MD WT: CATH:PILAR/HANG/ESEQUIEL Conf#: [id number]/DID#: [id number] Authenticated by Shahid Jensen MD On 11/16 01:17:47 PM at 0117 PATIENT NAME: GARCÍA MARRERO [id number] 2021-11-25 10:20:00-00:00 [id number] [place] [address] PATIENT NAME: GARCÍA MARRERO ADMIT DATE: 11/16 ACCOUNT NO: [id number] ROOM NO: [facility] AGE: 66 REPORT TYPE: ELECTROCARDIOGRAM SEX: M ADMITTING PHYSICIAN:Petra Schmitt MD ATTENDING PHYSICIAN:Petra Schmitt MD Order: [id number] Test Reason : CAD/ Test Date/Time Stamp: SatNov 25 2021 10:20:35 Blood Pressure : / mmHG Vent. Rate : 050 BPM Atrial Rate : 050 BPM P-R Int : 232 ms QRS Dur : 090 ms QT Int : 476 ms P-R-T Axes : 051 051 202 degree s QTc Int : 433 ms Sinus bradycardia with 1st degree AV block T wave abnormality, consider inferior ischemia Abnormal ECG When compared with ECG of 25-NOV-2021 06:56, T wave inversion now evident in Inferior leads Confirmed by SHAHID JENSEN ([id number]) on 11/25/2021 1:23:08 PM Referred By: Shahid Jensen Confirmed by:SHAHID VERDUGO at 1323 PATIENT NAME: GARCÍA MARRERO [id number] 2021-11-25 10:20:00-00:00 [phone] [address] PATIENT NAME: GARCÍA MARRERO ADMIT DATE: 11/16 ACCOUNT NO: [id number] ROOM NO: Z.362 AGE: 66 REPORT TYPE: ELECTROCARDIOGRAM SEX: M ADMITTING PHYSICIAN:Faustino Mercado MD ATTENDING PHYSICIAN:Faustino Mercado MD Order: [id number] Test Reason : CAD/ Test Date/Time Stamp: SatNov 25 2021 10:20:35 Blood Pressure : / mmHG Vent. Rate : 050 BPM Atrial Rate : 050 BPM P-R Int : 232 ms QRS Dur : 090 ms QT Int : 476 ms P-R-T Axes : 051 051 202 degree s QTc Int : 433 ms Sinus bradycardia with 1st degree AV block T wave abnormality, consider inferior ischemia Abnormal ECG When compared with ECG of 25-NOV-2021 06:56, T wave inversion now evident in Inferior leads Confirmed by SHAHID JENSEN ([id number]) on 11/27/2021 1:30:24 PM Referred By: Shahid Jensen Confirmed by:SHAHID VERDUGO at 1330 PATIENT NAME: GARCÍA MARRERO [id number] 2021-11-25 06:56:00-00:00 [id number] [address] PATIENT NAME: GARCÍA MARRERO ADMIT DATE: 11/16 ACCOUNT NO: [id number] ROOM NO: AGE: 66 REPORT TYPE: ELECTROCARDIOGRAM SEX: M ADMITTING PHYSICIAN: ATTENDING PHYSICIAN:Shahid Jensen MD Cardiolog y Order: [id number] Test Reason : [facility] Test Date/Time Stamp: SatNov 25 2021 06:56:15 Blood Pressure : / mmHG Vent. Rate : 059 BPM Atrial Rate : 059 BPM P-R Int : 204 ms QRS Dur : 096 ms QT Int : 448 ms P-R-T Axes : 055 051 065 degree s QTc Int : 443 ms Sinus bradycardia Otherwise normal ECG When compared with ECG of 11-JAN-2019 05:23, Questionable change in QRS axis Nonspecific T wave abnormality, improved in Infe rior leads Confirmed by SHAHID JENSEN ([id number]) on 11/25/2021 8:33:39 AM Referred By: Shahid Jensen Confirmed by:SHAHID VERDUGO at 0833 PATIENT NAME: GARCÍA MARRERO [id number] 2021-11-25 06:56:00-00:00 [phone] [place] [address] PATIENT NAME: GARCÍA MARRERO ADMIT DATE: 11/16 ACCOUNT NO: [id number] ROOM NO: Z.362 AGE: 66 REPORT TYPE: ELECTROCARDIOGRAM SEX: M ADMITTING PHYSICIAN:Faustino Mercado MD ATTENDING PHYSICIAN:Faustino Mercado MD Order: [id number] Test Reason : [facility] Test Date/Time Stamp: SatNov 25 2021 06:56:15 Blood Pressure : / mmHG Vent. Rate : 059 BPM Atrial Rate : 059 BPM P-R Int : 204 ms QRS Dur : 096 ms QT Int : 448 ms P-R-T Axes : 055 051 065 degree s QTc Int : 443 ms Sinus bradycardia Otherwise normal ECG When compared with ECG of 11-JAN-2019 05:23, Questionable change in QRS axis Nonspecific T wave abnormality, improved in Infe rior leads Confirmed by SHAHID JENSEN ([id number]) on 11/27/2021 1:30:38 PM Referred By: Shahid Jensen Confirmed by:SHAHID VERDUGO at 1330 PATIENT NAME: GARCÍA MARRERO [id number] 2021-11-24 07:48:00-00:00 [id number] [place] [address] PATIENT NAME: GARCÍA MARRERO ADMIT DATE: ACCOUNT NO: [id number] ROOM NO: AGE: 66 REPORT TYPE: PREOP HISTORY AND PHYSICAL SEX: M ADMITTING PHYSICIAN: ATTENDING PHYSICIAN:Shahid Jensen MD Cardiolog y PATIENT NAME: GARCÍA MARRERO ADMIT DATE:11/25 ADMISSION DATE: 11/25/2021 SHOP WORKER: Shahid Jensen MD REASON FOR ADMISSION: Symptomatic aortic stenosi s that is severe, known coronary artery disease, previous multiple inter ventions. The patient is here for right and left heart catheterization and aor tic root angiogram, to assess for aortic valve replacement surgically or by TA VR based on his cardiac catheterization. HISTORY OF PRESENT ILLNESS: García is a [age]-year-old patient with known coronary artery disease and multiple previous int erventions. The patient has also known aortic stenosis that is severe at this time with symptoms. The patient's last catheterization was done on 01/10/2019. At that time, he received a stent to his right coronary artery, another stent to his circumflex, the proximal circumflex stent from before was patent and the LAD stents were patent. Details of his previous interventions are enclosed. The patient was reevaluated recently with worsening symptoms. His echocardio gram on 11/10/2021 showed worsening aortic valve disease. He has also an a scending aorta at 4.2 cm. The valve area was 0.86 with a mean gradient of 63 m mHg. Ejection fraction was normal. He has mild mitral regurgitation and mil d aortic insufficiency. Given the degree of his aortic stenosis and his sympto ms, he is here for cardiac catheterization to assess for valve replacements either surgical or by TAVR based on his coronary situation. He does not have any angina at this time, but he does have dyspnea on mild exertion. There is no history of TIAs or strokes or congestive heart failure. PAST MEDICAL HISTORY: Remarkable for the above i n addition to hypertension, hyperlipidemia, diabetes, hy pothyroidism, sciatica, vitamin B12 deficiency, and allergies. PAST SURGICAL HISTORY: In addition to the cardia c procedures detailed above, the patient has had knee surgeries, carp al tunnel surgeries, and LASIK of both eyes. ALLERGIES: NO KNOWN DRUG ALLERGIES. MEDICATIONS: Aspirin 81 mg daily. He takes bumet anide 1 mg daily, Levothroid 125 mcg daily, rosuvastatin 20 mg daily, quinapril 40 mg b.i.d., metformin is on hold, fish oil 1200 mg daily, carvedilol 25 mg o ne in the morning and half in the evening, isosorbide 30 mg daily, amlodipine 5 mg daily, Brilinta 90 mg PATIENT NAME: GARCÍA MARRERO [id number] b.i.d. SOCIAL HISTORY: There is no history of smoking, alcohol, or street drug use. FAMILY HISTORY: Positive for atherosclerotic car diovascular disease. REVIEW OF SYSTEMS: Remarkable for the ab ove in addition to allergies, snoring, numbness of the toes; no acute GI or symptoms . No TIAs or strokes. PHYSICAL EXAMINATION: GENERAL: Reveals a pleasant elderly male, in no acute distress. VITAL SIGNS: Blood pressure 132/80, pulse 56 and regular, respiratory rate 18 and unlabored, and temperature afebrile. HEENT: Head atraumatic and normocephalic. Eyes a nd ENT examination within normal for age. NECK: Supple. No jugular venous distention, brui ts, or lymphadenopathy. Normal upstroke. LUNGS: Clear and resonant. HEART: Regular rate and rhythm, bradycardic II/V I systolic ejection murmur at the left lower sternal border. No gallops. There is also II/ diastolic murmur at the aortic area. ABDOMEN: Obese. No tenderness, no organomegaly, no masses or bruits. EXTREMITIES: A 2+ distal pulses. No edema, cyano sis, or clubbing. NEUROLOGIC: Alert and oriented x3. The examinati on appears to be nonfocal. LABORATORY DATA: Pending. Noninvasive cardiovasc ular workup enclosed. IMPRESSION: This is a 66-yea r-old patient who has now symptomatic severe aortic stenosis. He has known coronary artery disease w ith multiple previous interventions detailed above. He has had interve ntions twice in 2013 and in 2019. The patient is here for right and left hea rt catheterization and root angiograms to assess his aortic valve, coronarie s, and the ascending aorta. Based on the findings, we wi ll decide whether to refer the patient for surgical intervention and bypass or TAVR based on his cor onary and stent patency. The recommendation is to pro ceed with the above-mentioned procedures. The risks and benefits of the planned procedure were discussed in detail with the patient and available family members and he is w illing to proceed. Rest as per orders. Dictated By: Shahid Jensen MD WT: PREOPHP:SHU/HANG/ESEQUIEL Conf#: [id number]/DID#: [id number] Authenticated and Edited by Shahid Jensen MD On 11/24/21 4:16:11 PM at 0417 PATIENT NAME: GARCÍA MARRERO [id number] 2019-01-11 18:12:00-00:00 [facility] ([facility] Discharge Summary REPORT#:[id number] REPORT STATUS: Signed DATE:01/11/19 TIME: 1811 PATIENT: GARCÍA MARRERO UNIT #: [id number] ROOM/BED: [address] : [address] AGE: 63 SEX: M ATTEND: Jamie Curiel MD ADM AUTHOR: Jamie Curiel MD * ALL edits or amendments must be made on the [employer]/computer document * PCP PCP PCP: PCP: Shahid Jensen MD Discharge to: home General Information Date of admission: Observation Start Date: 01/10/19 Date of admission: 01/10/19 Date of discharge: 01/11/19 Admission diagnosis: - CORONARY ARTERY DISEASE. Discharge diagnosis: - CAD S/P PCI/DRUG ELUTING STENT RCA AND CIRCUMF LOGAN. - HTN. - DM. - HYPERLIPIDEMIA. - OBESITY. Hospital course: Patient is a 63-year-old pat ient with known coronary artery disease, who has had his last cardiac catheterization on 04/15/2013. At that time, he was noted to have double vessel coronary artery disease with in-stent stenosis in LAD and circumflex stents. On 04/13/2013, he und erwent brachytherapy to the circumflex and stent in the LAD. Patient was doing well unt il recently when he developed worsening dyspnea consistent with his previous a ngina symptoms. His nuclear stress test showed an ejection fraction of 48% t hat had dropped from before, which was 60%, and he had inferolateral and posterolateral ischemia consistent with recurrence of disease in his circumflex are a. Patient was brought to this facility on the morning of 01/10/2019 and underwent cardiac which showed three-vessel coronary arter y disease, moderate aortic stenosis, patent LAD stent, patent circumflex st ent, progression of the right coronary lesion to 80%, and new lesion in the ci rcumflex at 90%. He underwent drug-eluting stents placement in the rig ht coronary artery and the circumflex. He was placed in observation on the telemetry unit. He was monitored overnight and remained stable. He was continued on IV flui ds and labs were checked this morning which were unremarkable. All his home me dications were continued. He was discharged home this morning with instructio ns to follow-up with the tutoring manager Dr. Jensen next week. Med Rec PCP PCP: PCP: Shahid Jensen MD Med Rec Discharge meds: Continue taking these medications: ASPIRIN EC (ECOTRIN) 81 MG TAB.EC 81 MILLIGRAM ORAL BEDTIME. SALMON OIL/OMEGA-3 FATTY ACIDS (FISH OIL 500 MG) 1 CAP CAP 1,200 MILLIGRAM ORAL DAILY. metFORMIN XR (GLUCOPHAGE XR) 750 MG TAB.SR.24H 750 MILLIGRAM ORAL TWICE DAILY. TICAGRELOR (BRILINTA) 90 MG TAB 90 MILLIGRAM ORAL TWICE DAILY. BUMETANIDE (BUMEX) 1 MG TAB 1 MILLIGRAM ORAL DAILY. LEVOTHYROXINE (LEVOTHROID) 125 MCG TAB 125 MICROGRAM ORAL DAILY. ROSUVASTATIN (CRESTOR) 20 MG TAB 20 MILLIGRAM ORAL BEDTIME. ASCORBIC ACID (VITAMIN C) 1,000 MG TAB 1,000 MILLIGRAM ORAL DAILY. QUINAPRIL (ACCUPRIL) 40 MG TAB 40 MILLIGRAM ORAL TWICE DAILY. CYANOCOBALAMIN (VITAMIN B-12) 100 MCG TAB 100 MICROGRAM ORAL DAILY. The following medications have been changed: Old: CARVEDILOL (COREG) 25 MILLIGRAM ORAL TWICE DAILY WITH MEALS. New: CARVEDILOL (COREG) 25 MG TAB Instructions: ONE IN THE MORNING; HALF IN THE EVENING Objective VS/I O Last Documented: Result Date Time Pulse Ox 96 01/12 1128 B/P 156/84 01/12 1128 B/P Mean 108.1 01/12 1128 Temp 98.1 01/12 1128 Pulse 59 01/11 1128 Resp 16 01/11 1128 O2 Delivery Room air 01/11 417 24 hour I O ending at 0700: 01/11 0700 01/10 1900 Intake Total 1540.00 Output Total Balance 1540.00 Intake, IV 800.00 Intake, Oral 740 Number Voids 1 Patient 271 lb Weight Weight Stated/Reported Measurement Method Patient Weight Weight (lb): 270 Weight (oz): 8.82 Weight (kg): 122.720 General appearance: obese, a lert, awake, oriented, no acute distress, pleasant, conversational Head/Eyes: atraumatic, clear cornea, normal conj unctiva/sclera Cardiovascular: regular rate rhythm, normal hear t sounds Discharge Instructions Diet: cardiac, diabetic Activity: as tolerated Wound/dressing care: Keep wound clean and dry Prescriptions: none Discharge management: less than 30 mins, face to face encounter Follow-up Appointments PCP: PCP: Shahid Jensen MD Follow up timeframe: In 1-2 weeks Attending Physician: Attending Physician: Jamie Curiel MD Quality Medications Current medication review: I attest that the foregoing medication list in [facility] medical record is true, accurate, and complete to the best of my knowled ge. Electronically Signed by Jamie Curiel MD on 01/11 at 1818 RPT #:[id number] END OF REPORT 2019-01-11 11:49:00-00:00 [facility] ([facility] Cardiology Progress Note REPORT#:[id number] REPORT STATUS: Signed DATE:01/11/19 TIME: 1149 PATIENT: GARCÍA MARRERO UNIT #: [id number] ROOM/BED: [address] : [address] AGE: 63 SEX: M ATTEND: Jamie uCriel MD ADM AUTHOR: Aidee Armstrong MD * ALL edits or amendments must be made on the el [employer]/computer document * Subjective Chief Complaint: CAD Patient reports: No: chest pain, palpitations, shortness of breat h. Objective General VS/I O: 24 hour I O ending at 0700: 01/11 0700 01/10 1900 Intake Total 1540.00 Output Total Balance 1540.00 Intake, IV 800.00 Intake, Oral 740 Number Voids 1 Patient 122.72 kg Weight Weight Stated/Reported Measurement Method Vital Signs: Date Time Temp Pulse Resp B/P B/P Pulse O2 O2 F low FiO2 Mean Ox Delivery Rate 01/11 1128 98.1 59 16 156/84 108.1 96 01/11 0849 98.4 62 18 177/93 121 96 01/11 0417 98.2 72 16 175/87 116.6 96 Room air 01/11 0100 56 173/83 112.9 01/11 0007 98.6 54 16 216/97 136.6 96 Room air 01/10 1722 98.8 57 18 122/69 86.4 96 Patient Weight Weight (lb): 270 Weight (oz): 8.82 Weight (kg): 122.720 Medications: Active Meds + DC'd Last 24 Hrs Carvedilol 12.5 MG BEDTIME PO Ascorbic Acid 1,000 MG DAILY PO Aspirin 81 MG DAILY PO (CAN) Bumetanide 1 MG DAILY PO Carvedilol 25 MG DAILY PO Hydroxocobalamin 100 MCG DAILY PO Levothyroxine Sodium 125 MCG DAILY PO Aspirin 81 MG BEDTIME PO Atorvastatin Calcium 80 MG BEDTIME PO Insulin Human Lispro MEDIUM DOSE SLIDING SCALE AC HS SUBQ Ticagrelor 90 MG BID PO Acetaminophen 1,000 MG Q6H PRN PRN PO Dextrose/Water 12.5 GM ASDIR PRN IV Dextrose/Water 25 GM ASDIR PRN IV Hydralazine HCl 10 MG Q6H PRN PRN IV Melatonin 6 MG BEDTIME PRN PRN PO Morphine Sulfate 4 MG Q4H PRN PRN IV Nitroglycerin 0.4 MG Q5M PRN PRN SL Carvedilol 25 MG BID MEALS PO (DC) Nitroglycerin 1 INCH Q6H WA TRANSDERM Lisinopril 20 MG DAILY PO Ticagrelor 90 MG Q12HR PO (DC) Acetaminophen 650 MG Q6H PRN PRN PO (DC) Hydrocodone Bitart/Acetaminophen 1 TAB Q4H PRN P RN PO Ondansetron HCl 4 MG Q8H PRN PRN IV Sodium Chloride 1,000 ML .Q10H IV Sodium Chloride 1,000 ML Q10H IV (DC) Physical Exam General appearance: alert, awake, oriented Head/Eyes: atraumatic, normocephalic ENT: moist mucosal membranes Neck: no JVD Cardiovascular: CV assessment: regular rate and rhythm Respiratory: clear to auscultation, no distress Lower extremity: LE assessment: no edema Musculoskeletal: full range of motion Neuro/CUTTER WOODWIND REEDS: alert, oriented X 3, CN II-XII intact Wound/incision: Site condition: dressing clean dry Psychiatry: normal affect, normal judgment/insig ht, normal mood Results Findings/Data: Laboratory Tests 01/11 2030 4648 Chemistry Sodium (137 - 145 MMOL/L) 140 Potassium (3.5 - 5.1 MMOL/L) 3.8 Chloride (98 - 107 MMOL/L) 101 Carbon Dioxide (22 - 30 MMOL/L) 29 Anion Gap (14 - 24 MMOL/L) 14 BUN (9 - 20 MG/DL) 18 Creatinine (0.66 - 1.25 MG/DL) 1.20 Glomerular Filtr Rate > 60 Glucose (74 - 106 MG/DL) 164 H POC Glucose (60 - 99 MG/DL) 165 H 138 H Calcium (8.4 - 10.2 MG/DL) 9.7 Laboratory Tests 01/11 0525 Hematology WBC (3.8 - 9.8 K/MM3) 10.1 H RBC (3.95 - 5.67 M/MM3) 4.52 Hgb (12.4 - 16.7 G/DL) 13.8 Hct (35.9 - 49.5 %) 41.5 MCV (81.7 - 96.1 fL) 92 MCH (27.6 - 33.2 pg) 30.5 MCHC (32.9 - 35.5 %) 33.3 RDW (12.1 - 15.2 %) 13.3 Plt Count (129 - 368 K/MM3) 213 MPV (7.4 - 10.4 fl) 10.6 H Neut % (Auto) (43 - 75 %) 71.7 Lymph % (Auto) (14 - 44 %) 17.8 [place] % (Auto) (4 - 13 %) 8.9 Eos % (Auto) (0 - 6 %) 0.9 Baso % (Auto) (0 - 2 %) 0.3 Neut # (Auto) (2.0 - 7.6 K/mm3) 7.21 Lymph # (Auto) (1.0 - 3.8 K/mm3) 1.79 [place] # (Auto) (0.1 - 0.8 K/mm3) 0.89 H Eos # (Auto) (0.0 - 0.2 K/mm3) 0.09 Baso # (Auto) (0.0 - 0.2 K/mm3) 0.03 Immature Gran % (0.0 - 2.0 %) 0.4 Nucleated RBC % (0 - 1.0 %) 0.0 Nucleated RBCs # (Man) (0.0 - 0.1 K/mm3) 0.00 Diagnosis, Assessment Plan Free Text DxA P Notes Free Text DxA P Notes: IMP: CAD s/p PTCA/stent PLAN: d/c home f/u one week at 1817 RPT #:[id number] END OF REPORT 2019-01-11 05:23:00-00:00 [id number] [place] [address] PATIENT NAME: GARCÍA MARRERO ADMIT DATE: 12/17 09/03 ACCOUNT NO: [id number] ROOM NO: [facility] AGE: 63 REPORT TYPE: ELECTROCARDIOGRAM SEX: M ADMITTING PHYSICIAN:Jamie Curiel MD ATTENDING PHYSICIAN:Jamie Curiel MD Order: [id number] Test Reason : CAD/PCI Test Date/Time Stamp: SatJan 11 2019 05:23:09 Blood Pressure : / mmHG Vent. Rate : 058 BPM Atrial Rate : 058 BPM P-R Int : 206 ms QRS Dur : 106 ms QT Int : 450 ms P-R-T Axes : 045 -15 009 degree s QTc Int : 441 ms Sinus bradycardia Otherwise normal ECG When compared with ECG of 10-JAN-2019 10:54, Questionable change in QRS axis Confirmed by SHAHID JENSEN ([id number]) on 01/11/2019 7:21:28 AM Referred By: Shahid Jensen Confirmed by:SHAHID VERDUGO at 0721 PATIENT NAME: GARCÍA MARRERO [id number] 2019-01-10 17:41:00-00:00 [facility] History Physical - Adult REPORT#:[id number] REPORT STATUS: Signed DATE:01/10/19 TIME: 174 PATIENT: GARCÍA MARRERO UNIT #: [id number] ROOM/BED: [address] : 55 AGE: 63 SEX: M ATTEND: Jamie Curiel MD ADM AUTHOR: Jamie Curiel MD * ALL edits or amendments must be made on the [employer]/computer document * History of Present Illness HPI Chief complaint: SOB and abnormal stress test. PCP: PCP: Shahid Jensen MD HPI: Patient is a 63-year-old pat ient with known coronary artery disease, who has had his last cardiac catheterization on 04/15/2013. At that time, he had a double vessel coronary artery disea se with in-stent stenosis on the LAD and circumflex stents. On 04/13/2013, he underwent brachytherap y to the circumflex and stent in the LAD. Patient was doing well until recentl y when he developed worsening dyspnea consistent with his previous ang felicita symptoms. He had an echocardiogram that showed his aorta at the ascending to be dil ated . He had mild aortic stenosis with normal ejection fraction. His nucl ear stress test, however, showed an ejection fraction of 48% that has dropped from before, which was 60%, and he had inferolateral and posterolateral isch emia consistent with recurrence of disease in his circumflex area. Patient underwent cardiac ca th this morning and the findings/intervention showed : "Three-vessel coronary artery disease, moderate aortic stenosis, patent LAD stent, patent circumflex binu nt, progression of the right coronary lesion to 80%, new lesion in the circumflex at 90%, status post drug-eluting stent of the right coronary artery and the circumflex". Informant/historian: patient, prior records History Past medical history: Reports: Coronary artery disease, Diabetes melli tus, Hypertension. Additional surgical history: Bilateral knee surgery. Right nasal/facial surgery. Additional family history: Mother o heart disease. Father of alcoholic cirrhosis. Alcohol use: Denies EtOH use Drug use: Denies recreational drugs Smoking status for patients 13 years old or olde r: Never Smoker Other social history: Employed Additional social history: ; one daughter. Medication/Allergy-Vaccine Hx Home Medications: ASCORBIC ACID (VITAMIN C) 1,000 MG PO DAILY ASPIRIN EC (ECOTRIN) 81 MG PO BEDTIME BUMETANIDE (BUMEX) 1 MG PO DAILY CARVEDILOL (COREG) CYANOCOBALAMIN (VITAMIN B-12) 100 MCG PO DAILY LEVOTHYROXINE (LEVOTHROID) 125 MCG PO DAILY metFORMIN XR (GLUCOPHAGE XR) 750 MG PO BID QUINAPRIL (ACCUPRIL) 40 MG PO BID ROSUVASTATIN (CRESTOR) 20 MG PO BEDTIME SALMON OIL/OMEGA-3 FATTY ACIDS (FISH OIL 500 MG) 1,200 MG PO DAILY TICAGRELOR (BRILINTA) 90 MG PO BID Discontinued Medications PRAVASTATIN (PRAVACHOL) 40 MG PO DAILY Discontinued reason: Patient stopped taking Allergies: Coded Allergies: No Known Allergies (01/10/19) Occupation: [employer] employee. Ambulatory status: Independent Review of Systems Constitutional: Denies: fatigue, fever, generalized weakness. Allergy/Immun: Denies: hives, itching, rhinorrhea. Eyes: Denies: redness, itching, diplopia, photophobia. ENT: Denies: hearing loss, nasal congestion, nose ble eding, sinus problem, voice change. Respiratory: Reports: hemoptysis. Denies: pleuritic pain, SOB , wheezing. Cardiovascular: Denies: chest pain, edema, orthopnea, palpitatio ns. GI: Denies: abdominal pain, constipation, diarrhea, hematemesis, melena, nausea, vomiting. : Denies: dysuria, frequency, hematuria, nocturia, urgency. Heme: Denies: bleeding, bruising. Endocrine: Denies: cold intolerance, heat intolerance, poly dipsia, polyphagia, polyuria. Neuro: Denies: bladder dysfunction, bowel dysfunction, gait problem, headache, numbness. Psych: Denies: anxiety, depression, insomnia, stress, s uicidal ideation. Physical Exam VS/I O Vital Signs: Date Time Temp Pulse Resp B/P B/P Pulse O2 O2 F low FiO2 Mean Ox Delivery Rate 01/10 1722 98.8 57 18 122/69 86.4 96 Patient Weight Weight (lb): 270 Weight (oz): 8.82 Weight (kg): 122.720 General appearance: obese, alert, awake, oriente d, no acute distress, conversational Head/Eyes: atraumatic, clear cornea, normal conj unctiva/sclera, PERRLA ENT: moist mucosal membranes, normal pharynx Neck: non-tender, supple/no meningismus Cardiovascular: bradycardia Respiratory: clear to auscultation, no tendernes s, aerating well Abdomen/GI: active bowel sounds, soft, non-tende r, no distention Extremities: moves all, no edema-all extremities , no clubbing, no cyanosis Musculoskeletal: normal inspection, no muscle sp asm Neuro/CUTTER WOODWIND REEDS: alert, oriented X 3, normal gait, nor mal speech, no motor deficits Psychiatry: normal affect, normal judgment/insig ht, normal mood Results Findings/Data: Laboratory Tests: 01/10 01/10 01/10 1758 0852 0640 Chemistry Sodium (137 - 145 MMOL/L) 140 Potassium (3.5 - 5.1 MMOL/L) 4.2 Chloride (98 - 107 MMOL/L) 100 Carbon Dioxide (22 - 30 MMOL/L) 34 H Anion Gap (14 - 24 MMOL/L) 10 L BUN (9 - 20 MG/DL) 22 H Creatinine (0.66 - 1.25 MG/DL) 1.40 H Glomerular Filtr Rate 51 Glucose (74 - 106 MG/DL) 167 H POC Glucose (60 - 99 MG/DL) 138 H Calcium (8.4 - 10.2 MG/DL) 9.1 Magnesium (1.6 - 2.3 MG/DL) 1.9 Triglycerides (MG/DL) 295 Cholesterol (<200 MG/DL) 215 LDL Cholesterol Measurd (0 - 99 MG/DL) 150 H HDL Cholesterol (40 - 59 MG/DL) 44 Coagulation INR (0.8 - 1.1) 0.9 APTT (22.0 - 33.0 SECONDS) 31.3 PT Patient/Control Mix (9.6 - 11.6 SECONDS) 9.7 Activated Coag Time (74 - 137 SEC) 224 H Hematology WBC (3.8 - 9.8 K/MM3) 8.6 RBC (3.95 - 5.67 M/MM3) 4.50 Hgb (12.4 - 16.7 G/DL) 13.9 Hct (35.9 - 49.5 %) 42.5 MCV (81.7 - 96.1 fL) 94 MCH (27.6 - 33.2 pg) 30.9 MCHC (32.9 - 35.5 %) 32.7 L RDW (12.1 - 15.2 %) 13.1 Plt Count (129 - 368 K/MM3) 190 MPV (7.4 - 10.4 fl) 10.2 Neut % (Auto) (43 - 75 %) 56.4 Lymph % (Auto) (14 - 44 %) 32.1 [place] % (Auto) (4 - 13 %) 9.2 Eos % (Auto) (0 - 6 %) 1.7 Baso % (Auto) (0 - 2 %) 0.3 Neut # (Auto) (2.0 - 7.6 K/mm3) 4.85 Lymph # (Auto) (1.0 - 3.8 K/mm3) 2.76 [place] # (Auto) (0.1 - 0.8 K/mm3) 0.79 Eos # (Auto) (0.0 - 0.2 K/mm3) 0.15 Baso # (Auto) (0.0 - 0.2 K/mm3) 0.03 Immature Gran % (0.0 - 2.0 %) 0.3 Nucleated RBC % (0 - 1.0 %) 0.0 Nucleated RBCs # (Man) (0.0 - 0.1 K/mm3) 0.00 Diagnosis, Assessment Plan Free Text DxA P Notes Free Text DxA P Notes: - CAD S/P PCI/DRUG ELUTING STENT RCA AND CIRCUMF LOGAN. - HTN. - DM. - HYPERLIPIDEMIA. - OBESITY. PLAN: - Admit to tele for overnight observation. - IV fluids. - Resume home meds. - Monitor labs in am. - Pain meds prn. - NTG prn. - If patient remains stable, will plan to d/c ho me in am. Quality Medications Current medication review: I attest that the foregoing medication list in t he medical record is true, accurate, and complete to the best of my knowled ge. Electronically Signed by Jamie Curiel MD on 01/11 at 1235 RPT #:[id number] END OF REPORT 2019-01-10 15:33:00-00:00 [id number] [facility] [address] [id number] PATIENT NAME: GARCÍA MARRERO ADMIT DATE: ACCOUNT NO: [id number] ROOM NO: Z.361 AGE: 63 REPORT TYPE: ECHOCARDIOGRAM SEX: M ADMITTING PHYSICIAN:Shahid Jensen MD ATTENDING PHYSICIAN:Shahid Jensen MD *[facility]* [id number] [id number] Transthoracic Echocardiogram Patient: García Marrero Study Date: 01/10/2019 BP: 133 / 61 Location: [facility] URN: [id number] 12 : 1955 Age: 63 Height: 70 in / 177.8 cm Gender: M Weight: 269 .4 lb / 122.5 kg BMI/BSA: 38.7 kg/m 2 / 2.51 m 2 *Ordering Physician: * Shahid Jensen MD *Interpreting Physician: * Shahid Jensen MD *Heavy Equipment Operating Engineer: * Olivia Mccloud RVT Indications: Aortic Stenosis. Study data: Transthoracic echocardiogram. Proced ure: Transthoracic echocardiography was performed. Images were obta ined using a Scribd cardiac ultrasound machine. Image quality was suboptimal . The study was technically limited due to body habitus. Complet e 2D, complete spectral Doppler, and color Doppler. Location: [facility] Patient status: Outpatient. Patient room number: CH3. Study stat us: Routine. Findings Left ventricle: The cavity size is normal. Wall thickness is mildly increased. Systolic function is normal. The marietta mated ejection fraction is 55-60%. Wall motion is normal; there are no r egional wall motion abnormalities. Doppler parameters are consistent with abnormal left PATIENT NAME: GARCÍA MARRERO [id number] ventricular relaxation (grade 1 diastolic dysfun ction). Right ventricle: Poorly visualized. The cavity s ize is normal. Systolic function is normal. Left atrium: The atrium is mildly dilated. Right atrium: The atrium is normal in size. Atrial septum: Poorly visualized. No defect or p atent foramen ovale is identified. Aorta: The aortic root is not dilated. Aortic valve: The valve is trileaflet. The leafl ets are mildly thickened and mildly calcified. The findings are consistent with moderate stenosis. There is mild regurgitation. Mitral valve: The annulus is mildly calcified. T he leaflets are mildly thickened. There is mild regurgitation. Tricuspid valve: Not well visualized. There is m ild regurgitation. Pulmonic valve: Not well visualized. There is no regurgitation. Pericardium: There is no pericardial effusion. Systemic veins: Inferior vena cava: Not well visualized. Baseline ECG: Sinus bradycardia. Measurements Left ventricle Value Ref Aortic valve continue d Value Ref JEANNETTE, LAX 5.2 cm 4.2 - 5.8 Peak v, S 3.59 m/sec ----- ESD, LAX 3.5 cm 2.5 - 4.0 Mean v, S 2.34 m/sec ----- ESD/bsa, LAX 1.4 cm/m 2 1.3 - 2.1 VTI, S 79.4 cm ----- FS, LAX 32 % 25 - 43 Mean grad, S 26.4 mm Hg ----- PW, ED 1.3 cm 0.6 - 1.0 Peak grad, S 51.6 mm Hg ----- PW, ES 1.7 cm --------- LVOT/AV, VTI ratio 0.57 ----- IVS/PW, ED 1.01 --------- SHANNON, VTI 1.66 cm 2 ----- EF 60 % 52 - 72 LVOT/AV, Vpeak ratio 0.41 ----- IVRT 145 ms --------- SHANNON, Vmax 1.36 cm 2 ----- LVOT Value Ref Mitral valve Value Ref Diam, S 2.05 cm --------- Peak E 0.71 m/sec ----- Area 3.3 cm 2 --------- Peak A 0.75 m/sec ----- Peak dale, S 1.49 m/sec --------- Mean v, D 0.7 m/sec ----- PATIENT NAME: GARCÍA MARRERO [id number] Mean dale, S 1.04 m/sec --------- VTI leaflet co apt 48.9 cm ----- VTI, S 45.2 cm --------- Decel time 367 ms ----- Peak grad, S 9 mm Hg --------- PHT 120 ms ----- Mean grad, S 5 mm Hg --------- Mean grad, D 2.4 mm Hg ----- SV 132 ml --------- Peak grad, D 6.3 mm Hg ----- Qs 6.66 L/min --------- Peak E/A ratio 0.94 ----- Qs/bsa 2.7 L/(min-m 2) --------- MVA, PHT 1.8 cm 2 ----- SV/bsa 52 ml/m 2 --------- Pulmonic valve Value Ref Ventricular septum Value Ref CO v, ED 0.51 m/sec ----- IVS, ED 1.3 cm 0.6 - 1.0 IVS, ES 1.7 cm --------- Tricuspid valve Value Ref TR peak v 2.35 m/sec <=2.8 Right ventricle Value Ref Peak RV-RA grad, S 22 mm Hg ----- JEANNETTE, LAX 2.9 cm --------- Pressure, S 27 mm Hg --------- Aortic root Value Ref Root diam 3.3 cm <4.5 Left atrium Value Ref Root diam, ED MM 3.47 cm ----- AP dim, ES 4.33 cm 3.00 - 4.00 Pulmonary artery Value Ref AP dim, ES MM 4.3 cm 3.0 - 4.0 Pressure, S 22.8 mm Hg ----- LA/Ao root 1.25 --------- ratio, MM Systemic veins Value Ref Estimated CVP 5 mm Hg ----- Aortic valve Value Ref Leaflet sep, MM 1.87 cm --------- Conclusions Summary: 1. Left ventricle: The cavity size is normal. Wa ll thickness is mildly increased. Systolic function is normal. The est imated ejection fraction is 55-60%. Wall motion is normal; ther e are no regional wall PATIENT NAME: GARCÍA MARRERO [id number] motion abnormalities. Doppler parameters are co nsistent with abnormal left ventricular relaxation (grade 1 diastolic dysfunction). 2. Right ventricle: The RV pressure during systo le by Doppler is 27 mm Hg. 3. Left atrium: The atrium is mildly dilated. 4. Aortic valve: The findings are consistent wit h moderate stenosis. There is mild regurgitation. The mean systolic gradient is 26.4 mm Hg. The peak systolic gradient is 51.6 mm Hg. 5. Mitral valve: The annulus is mildly calcified . The leaflets are mildly thickened. There is mild regurgitation. 6. Tricuspid valve: There is mild regurgitation. Prepared and electronically signed by Shahid Jensen MD 01/10/2019 15:33 at 1530 PATIENT NAME: GARCÍA MARRERO [id number] 2019-01-10 10:54:00-00:00 [id number] [place] [id number] PATIENT NAME: GARCÍA MARRERO ADMIT DATE: 12/17 09/03 ACCOUNT NO: [id number] ROOM NO: Z.361 AGE: 63 REPORT TYPE: ELECTROCARDIOGRAM SEX: M ADMITTING PHYSICIAN:Shahid Jensen MD ATTENDING PHYSICIAN:Shahid Jensen MD Order: [id number] Test Reason : CAD/PCI Test Date/Time Stamp: SatJan 10 2019 10:54:26 Blood Pressure : / mmHG Vent. Rate : 056 BPM Atrial Rate : 056 BPM P-R Int : 210 ms QRS Dur : 098 ms QT Int : 482 ms P-R-T Axes : 035 042 020 degree s QTc Int : 465 ms Sinus bradycardia with 1st degree AV block Otherwise normal ECG No significant change was found Confirmed by SHAHID JENSEN ([id number]) on 01/10/2019 3:41:32 PM Referred By: Shahid Jensen Confirmed by:SHAHID VERDUGO at 1545 PATIENT NAME: GARCÍA MARRERO [id number] 2019-01-10 10:54:00-00:00 [id number] [facility] [address] [address] PATIENT NAME: GARCÍA MARRERO ADMIT DATE: 12/17 09/03 ACCOUNT NO: [id number] ROOM NO: Z.361 AGE: 63 REPORT TYPE: ELECTROCARDIOGRAM SEX: M ADMITTING PHYSICIAN:Shahid Jensen MD ATTENDING PHYSICIAN:Shahid Jensen MD Order: [id number] Test Reason : CAD/PCI Test Date/Time Stamp: Rust Jan 10 2019 10:54:26 Blood Pressure : / mmHG Vent. Rate : 056 BPM Atrial Rate : 056 BPM P-R Int : 210 ms QRS Dur : 098 ms QT Int : 482 ms P-R-T Axes : 035 042 020 degree s QTc Int : 465 ms Sinus bradycardia with 1st degree AV block Otherwise normal ECG No significant change was found Confirmed by SHAHID JENSEN ([id number]) on 01/10/2019 5:01:49 PM Referred By: Shahid Jensen Confirmed by:SHAHID VERDUGO at 1702 PATIENT NAME: GARCÍA MARRERO [id number] 2019-01-10 09:33:00-00:00 [id number] [place] [id number] PATIENT NAME: GARCÍA MRARERO ADMIT DATE: 12/17 09/03 ACCOUNT NO: [id number] ROOM NO: Z.361 AGE: 63 REPORT TYPE: CARDIAC CATHETERIZATION REPORT SEX: M ADMITTING PHYSICIAN:Shahid Jensen MD ATTENDING PHYSICIAN:Shahid Jensen MD PROCEDURE DATE: 01/10/2019 CARDIOLOGY PROCEDURE SHOP WORKER: Shahid Jensen MD INDICATION FOR THE PROCEDURE: Dyspnea angina equ ivalent, coronary artery disease, previous stents, abnormal nuclear stres s test. TITLE OF THE PROCEDURE: 1. Left heart catheterization. 2. Drug-eluting stent of the right coronary nelly ry. 3. Drug-eluting stent of the circumflex. 4. Nitroglycerin intracoronary. 5. Sealing device. ESTIMATED BLOOD LOSS: Minimal. COMPLICATIONS: None. CONTRAST: 120 mL. ANESTHESIA: Conscious sedation with Versed and f entanyl and 1% lidocaine for local anesthesia. FINAL DIAGNOSES: Three-vessel coronary artery di sease, moderate aortic stenosis, patent LAD stent, patent circumflex st ent, progression of the right coronary lesion to 80%, new lesion in the circum flex at 90%, status post drug-eluting stent of the right coronary artery and the circumflex. PROCEDURE IN DETAIL: After informed consent, the patient was brought to the cardiac catheterization lab in a stable fasting nonsedated state. He was prepped and draped in usual sterile fashion. Aft er conscious sedation, 1% lidocaine was administered to the right common f emoral artery area for local anesthesia. A 6-[place] sheath was placed in the right common femoral artery using standard techniques and fluoroscop y. After heparinization, left coronary angiogram showed a patent LA D stent with a known jailed diagonal at 70% ostium. The stent has about 10% restenosis. The patient has an early diagonal, which functions like ramus. There is a lesion of 45% i n the LAD right after the origin of that diagonal. The circumflex stent th at is proximal to ostial is restenosed at 45%. There is a distal lesion 90%. There are large branches after that. Right coronary angiogram showed an 8 0% proximal lesion, 30% PATIENT NAME: GARCÍA MARRERO ACCOUNT #: [id number] plaques, otherwise it is a dominant vessel. Left ventricular angiogram showed normal ejection fraction of 60%, left ve ntricular end-diastolic pressure of 22 and a significant aortic gradient [id number] f rom 168 to 200 and no wall motion abnormalities. At this time, we decided t o intervene on both lesions given the ischemia inferolat eral and inferoposterior. The right coronary artery guide used was a JR4. Luge wire was used. It was primary stented with a 3.5 x 15 Resolute Allan that result ed in less than 0% residual. The circumflex lesion, the guide used was same guid e that I used for the catheterization was a JL-4.5. I could not cannulate with a JL4 and JL5 . JL4.5 worked fine, so the guide used was a JL4.5 [employer]. The wire used was a Luge and the lesion was primary stented with a 3.5 x 12 Resolute [place] resulted i n less than 0% residual with good flow. Nitroglycerin intracoronary w as given. There were no complications. The patient tolerated the procedure well. The r ight groin was sealed using Angio-Seal. The patient was transferred back to the holding area for observation to be placed on observation [facility]. The patient tolerated the procedure well. Dictated By: Shahid Jensen MD WT: CATH:PILAR/HANG/ESEQUIEL Conf#: [id number]/DID#: [id number] Authenticated by Shahid Jensen MD On 12/17 03:26:03 PM at 1526 PATIENT NAME: GARCÍA MARRERO [id number] 2019-01-10 06:43:00-00:00 [id number] [place] [address] PATIENT NAME: GARCÍA MARRERO ADMIT DATE: 12/17 09/03 ACCOUNT NO: [id number] ROOM NO: [facility] AGE: 63 REPORT TYPE: ELECTROCARDIOGRAM SEX: M ADMITTING PHYSICIAN:Shahid Jensen MD ATTENDING PHYSICIAN:Shahid Jensen MD Order: [id number] Test Reason : PREOP Test Date/Time Stamp: SatJan 10 2019 06:43:33 Blood Pressure : / mmHG Vent. Rate : 048 BPM Atrial Rate : 048 BPM P-R Int : 202 ms QRS Dur : 102 ms QT Int : 478 ms P-R-T Axes : 046 048 035 degree s QTc Int : 427 ms Marked sinus bradycardia Abnormal ECG No previous ECGs available Confirmed by SHAHID JENSEN ([id number]) on 01/10/2019 3:40:35 PM Referred By: Shahid Jensen Confirmed by:SHAHID VERDUGO at 1540 PATIENT NAME: GARCÍA MARRERO [id number] 2019-01-10 06:43:00-00:00 [phone] [place] [id number] PATIENT NAME: GARCÍA MARRERO ADMIT DATE: 12/17 09/03 ACCOUNT NO: [id number] ROOM NO: Z.361 AGE: 63 REPORT TYPE: ELECTROCARDIOGRAM SEX: M ADMITTING PHYSICIAN:Shahid Jensen MD ATTENDING PHYSICIAN:Shahid Jensen MD Order: [id number] Test Reason : PREOP Test Date/Time Stamp: SatJan 10 2019 06:43:33 Blood Pressure : / mmHG Vent. Rate : 048 BPM Atrial Rate : 048 BPM P-R Int : 202 ms QRS Dur : 102 ms QT Int : 478 ms P-R-T Axes : 046 048 035 degree s QTc Int : 427 ms Marked sinus bradycardia Abnormal ECG No previous ECGs available Confirmed by SHAHID JENSEN ([id number]) on 01/10/2019 5:01:45 PM Referred By: Shahid Jensen Confirmed by:SHAHID VERDUGO at 1701 PATIENT NAME: GARCÍA MARRERO [id number] 2019-01-08 18:18:00-00:00 [id number] [address] PATIENT NAME: GARCÍA MARRERO ADMIT DATE: ACCOUNT NO: [id number] ROOM NO: AGE: 63 REPORT TYPE: HISTORY AND PHYSICAL SEX: M ADMITTING PHYSICIAN: ATTENDING PHYSICIAN:Shahid Jensen MD PATIENT NAME: GARCÍA MARRERO ADMIT DATE:01/10/2019 ADMISSION DATE: 01/10/2019 ADDENDUM TO THE HISTORY AND PHYSICAL REPORT: Confirmation #[id number], DID #[id number]. Review of his previous procedures became availab le. The patient has his first procedure on 11/28/2011 at which time he was fou nd to have double vessel coronary artery disease with significant disease of the LAD and the circumflex and 40% of the right. Then on the same day, 11/16, he received an LAD stent 3 x 15 mm Resolute. Th en on 12/12/2011, he received a 3.5 x 9 mm stent of the circumflex. Then on 04/13/2013, he was found to have restenosis in both stents in the LAD and the circumflex and the rig ht coronary artery was unchanged. Then, on 04/15/19 14, he received another stent in the LAD was 4 x 32 Xience, and that was the esha g stent that jailed the diagonal, so he had to have a 1.5 x 6 mm balloon of the jailed diagonal. The n, on the circumflex, he received a cutting balloon and brachythe rapy with a 4 x 10 mm balloon. This is all the information I received today on the prev ious interventions on this patient. Dictated By: Shahid Jensen MD WT: HP:SHU/HANG/ESEQUIEL Conf#: [id number]/DID#: [id number] Authenticated and Edited by Shahid Jensen MD On 01/09/19 5:25:42 PM at 1727 PATIENT NAME: GARCÍA MARRERO 2 2019-01-08 07:56:00-00:00 [id number] [place] [address] PATIENT NAME: GARCÍA MARRERO ADMIT DATE: ACCOUNT NO: [id number] ROOM NO: AGE: 63 REPORT TYPE: HISTORY AND PHYSICAL SEX: M ADMITTING PHYSICIAN: ATTENDING PHYSICIAN:Shahid Jensen MD PATIENT NAME: GARCÍA MARRERO ADMIT DATE:01/10/2019 ADMISSION DATE: 01/10/2019 ADMISSION HISTORY AND PHYSICAL DATE OF ADMISSION AND DATE OF PROCEDURE: 019. REASON FOR ADMISSION: Cardiac catheterization fo r possible revascularization. HISTORY OF PRESENT ILLNESS: García is a [age]-year-old patient with known coronary artery disease, who has had his last car dia catheterization on 04/15/2013. At that time, he had a double v essel coronary artery disease with in-stent stenosis on the LAD and circumflex stents. On , he underwent brachytherapy to the circumflex and 4 x 32 mm Xience stent in the LAD. The patient comes back. The patient came to see me as a new patient in . I have been seeing him since. Recently, he has been having worsening dy spnea consistent with his previous angina symptoms. He had an echocardiogram that showed his aorta at the ascending was dilated at 4.43. He had mild aorti c stenosis, mild pulmonary hypertension, normal ejection fraction. His nucl ear stress test, however, showed an ejection fraction of 48% that has dropped from before, which was 60%, and he has now inferolateral and posterolateral ischemia consistent with recurrence of disease in his circumflex area. Gi edie this information and his history, he is here for cardiac catheterization to assess for possible revascularization. There is no history of conges tive heart failure, TIAs or strokes. PAST MEDICAL HISTORY: Remarkable for hypertensio n, hyperlipidemia, aortic stenosis, thoracic aortic aneurysm, diabetes, al lergies. PAST SURGICAL HISTORY: Remarkable for knee surge ry x3, carpal tunnel in both wrists and LASIK to both eyes. SOCIAL HISTORY: There is no history of smoking, alcohol or street drug use. FAMILY HISTORY: Positive for atherosclerotic car diovascular disease. REVIEW OF SYSTEMS: Remarkable for insomnia, marcie rgies, snoring, thyroid problems, the above-mentioned dyspnea symptoms, leg discomfort at times. No acute GI or symptoms. No TIAs or strokes. The rest of the review of system is enclosed. PHYSICAL EXAMINATION: PATIENT NAME: GARCÍA MARRERO 2 GENERAL: Reveals a pleasant middle-aged male, in no acute distress. VITAL SIGNS: Blood pressure 170/90, pulse 50 and regular, respiratory rate 18 and unlabored. The patient weighs around 290 gucci nds. HEENT: Head atraumatic and normocephalic. Eyes a nd ENT examination within normal for age. NECK: Supple. No jugular venous distention, brui ts or lymphadenopathy. Normal upstroke. LUNGS: Clear and resonant. HEART: Regular rate and rhythm, II/ systolic e jection murmur at the aortic area. No gallops. ABDOMEN: Soft, obese. No tenderness. No organome stephanie. No masses or bruits. EXTREMITIES: 2+ distal pulses. No edema, cyanosi s or clubbing. NEUROLOGIC: Alert and oriented x3. The examinati on appears to be nonfocal. LABORATORY DATA: Pending. Noninvasive cardiovasc ular workup enclosed. IMPRESSION AND PLAN: This is a 63-year-old patient with multiple cardiovascular risk factors, known 2-vessel coronary artery disease and previous stenting, who comes in with dyspnea, which is his angina equiv alent and ischemia on the nuclear stress test, apparent restenosis or new lesions in the circumflex artery. He is here for cardiac catheterization t o assess for possible revascularization. The recommendation is to proc eed with the above-mentioned procedures. The risks and benefits of th e planned procedures were discussed in detail with the patient and he is willing to pro ceed. Rest as per orders. ADDENDUM BEING ADDED IS FROM DID #[id number]: ALLERGIES: NO KNOWN DRUG ALLERGIES. MEDICATIONS: Aspirin 81 mg daily, fish oil 1200 mg daily, metformin 750 mg b.i.d., Brilinta 90 mg b.i.d., carvedilo l 25 mg b.i.d., bumetanide 1 mg daily, Levothroid 125 mcg daily, rosuvastatin 2 0 mg daily, vitamins, and quinapril 40 mg daily. PAST MEDICAL HISTORY: Hypothyroidism. CORRECTED 01/08/2019 NM Dictated By: Shahid Jensen MD WT: HP:SHU/HANG/ESEQUIEL Conf#: [id number]/DID#: [id number] Authenticated and Edited by Shahid Jensen MD On 01/09/19 7:23:33 AM at 0725 PATIENT NAME: GARCÍA MARRERO 2
--- NOTE | 2022-11-13 01:59 | EDPHYS ---
Physician Documentation [facility] Name: Toribio Monae Age: 67 yrs Sex: Male : 1955 Arrival Date: 11/13/2022 Time: 01:09 Bed 8 Private MD: ED Physician Kelvin Dorado HPI: 11/13 01:54 This 67 yrs old Male presents to ER via Ambulatory with complaints of dave Constipation. 01:54 The patient presents with abdominal pain in the upper abdomen, in the lower abdomen, dave abdominal distention in the upper abdomen, in the lower abdomen. Onset: The symptoms/episode began/occurred 2 day(s) ago. The symptoms do not radiate. Associated signs and symptoms: Pertinent positives: constipation. The symptoms are described as crampy. Modifying factors: The symptoms are alleviated by nothing, the symptoms are aggravated by nothing. Severity of pain: At its worst the pain was moderate in the emergency department the pain has improved moderately. The patient has experienced similar episodes in the past, several times. Historical: - Allergies: 01:46 No Known Allergies; vc1 - Home Meds: 01:46 None [Active]; vc1 - PMHx: 01:46 None; vc1 - PSHx: 01:46 None; vc1 - Immunization history:: Client reports receiving the 2nd dose of the Covid vaccine, shingles vaccine. - Social history:: Smoking status: Patient denies any tobacco usage or history of. - Family history:: not pertinent. ROS: 01:54 Constitutional: Negative for fever, chills, and weight loss, Eyes: Negative for injury, dave pain, redness, and discharge, ENT: Negative for injury, pain, and discharge, Neck: Negative for injury, pain, and swelling, Cardiovascular: Negative for chest pain, palpitations, and edema, Respiratory: Negative for shortness of breath, cough, wheezing, and pleuritic chest pain, Back: Negative for injury and pain, : Negative for injury, bleeding, discharge, and swelling, MS/Extremity: Negative for injury and deformity, Skin: Negative for injury, rash, and discoloration, Neuro: Negative for headache, weakness, numbness, tingling, and seizure, Psych: Negative for depression, anxiety, suicide ideation, homicidal ideation, and hallucinations, Allergy/Immunology: Negative for hives, rash, and allergies, Endocrine: Negative for neck swelling, polydipsia, polyuria, polyphagia, and marked weight changes, Hematologic/Lymphatic: Negative for swollen nodes, abnormal bleeding, and unusual bruising. 01:54 Abdomen/GI: Positive for abdominal pain, constipation, abdominal cramps. Exam: 01:54 Constitutional: This is a well developed, well nourished patient who is awake, alert, dave and in no acute distress. Head/Face: Normocephalic, atraumatic. Eyes: Pupils equal round and reactive to light, extra-ocular motions intact. Lids and lashes normal. Conjunctiva and sclera are non-icteric and not injected. Cornea within normal limits. Periorbital areas with no swelling, redness, or edema. ENT: Nares patent. No nasal discharge, no septal abnormalities noted. Tympanic membranes are normal and external auditory canals are clear. Oropharynx with no redness, swelling, or masses, exudates, or evidence of obstruction, uvula midline. Mucous membranes moist. Neck: Trachea midline, no thyromegaly or masses palpated, and no cervical lymphadenopathy. Supple, full range of motion without nuchal rigidity, or vertebral point tenderness. No Meningismus. Chest/axilla: Normal chest wall appearance and motion. Nontender with no deformity. No lesions are appreciated. Cardiovascular: Regular rate and rhythm with a normal S1 and S2. No gallops, murmurs, or rubs. Normal PMI, no JVD. No pulse deficits. Respiratory: Lungs have equal breath sounds bilaterally, clear to auscultation and percussion. No rales, rhonchi or wheezes noted. No increased work of breathing, no retractions or nasal flaring. Back: No spinal tenderness. No costovertebral tenderness. Full range of motion. Male : Normal genitalia with no discharge or lesions. Skin: Warm, dry with normal turgor. Normal color with no rashes, no lesions, and no evidence of cellulitis. MS/ Extremity: Pulses equal, no cyanosis. Neurovascular intact. Full, normal range of motion. Neuro: Awake and alert, GCS 15, oriented to person, place, time, and situation. Cranial nerves II-XII grossly intact. Motor strength 5/5 in all extremities. Sensory grossly intact. Cerebellar exam normal. Normal gait. Psych: Awake, alert, with orientation to person, place and time. Behavior, mood, and affect are within normal limits. 01:54 Abdomen/GI: Inspection: distension, Bowel sounds: normal, Palpation: nontender, Liver: no appreciated palpable abnormalities, Hernia: not appreciated. 01:54 Musculoskeletal/extremity: DVT Exam: No signs of deep vein thrombosis. no pain, no swelling, no tenderness, negative Homans' sign noted on exam, no appreciated bluish discoloration, no erythema, no increased warmth. Vital Signs: 01:43 BP 128 / 77; Pulse 61; Resp 18; Temp 98.4; Pulse Ox 98% ; Weight 112.49 kg; Height 6 vc1 ft. 0 in. ; 01:43 Body Mass Index 33.63 (112.49 kg, 182.88 cm) vc1 MDM: 01:15 Patient medically screened. dave 01:56 Differential diagnosis: bowel obstruction, gastritis, non-specific abd pain, dave pancreatitis, urinary tract infection. Data reviewed: vital signs, nurses notes. Consideration of Admission/Observation Escalation of care including admission/observation considered. I considered the following discharge prescriptions or medication management in the emergency department Medications were administered in the Emergency Department. See MAR. Test considered but Not performed: Labs: no labs, no ct. Care significantly affected by the following chronic conditions: obese. Counseling: I had a detailed discussion with the patient and/or guardian regarding the historical points, exam findings, and any diagnostic results supporting the discharge/admit diagnosis, the need for outpatient follow up, for definitive care, a family practitioner, a manager culture. Administered Medications: 01:48 CANCELLED (Duplicate Order): Dulcolax AZ Suppository 10 mg AZ once dave 01:49 CANCELLED (Duplicate Order): NS 0.9% IV 1000 ml IV at 1 bolus Per protocol; 1000 mL dave bolus 01:49 CANCELLED (Duplicate Order): Famotidine IVP 20 mg IVP once; dilute with 10 mL 0.9% dave NaCl; give over 2 minutes 01:49 CANCELLED (Duplicate Order): Ondansetron IVP 4 mg IVP once; over 2 minutes dave 02:13 Drug: Lactulose PO 60 grams Volume: 45 ml; Route: PO; vc1 02:13 Follow up: Response: Medication administered at discharge. vc1 Disposition Summary: 11/13/22 01:58 Discharge Ordered Location: Home dave Problem: [facility] Symptoms: have improved dave Condition: Stable dave Diagnosis - Constipation dave - Abdominal pain, Generalized dave Followup: dave - With: Private Physician - When: 2 - 3 days - Reason: Recheck today's complaints, Continuance of care, Re-evaluation by your physician Followup: dave - With: Bushra Danielle MD - When: 2 - 3 days - Reason: Recheck today's complaints, Continuance of care, Re-evaluation by your physician Discharge Instructions: - Discharge Summary Sheet dave - Abdominal Pain, Adult dave - Constipation, Adult dave - Abdominal Pain, Adult, [id number] [facility] Forms: - Medication Reconciliation Form [facility] - Thank You Letter dave - Antibiotic Education dave - Prescription Opioid Use dave - Patient Portal Instructions [facility] - Leadership Thank You Letter [facility] Prescriptions: - Dulcolax (bisacodyl) 10 mg Rectal suppository - insert 1 suppository by RECTAL route daily for 10 days; 10 suppository; [facility] Refills: 0, Product Selection Permitted - Lactulose 10 gram/15 mL Oral Solution - take 30 milliliters by ORAL route once daily; 300 milliliter; Refills: 0, [facility] Product Selection Permitted Signatures: Dispatcher [employer] Kelvin Pollock MD MD cha Calcote, Vanessa, RN RN vc1 Corrections: (The following items were deleted from the chart) 01:48 01:15 Dulcolax AZ Suppository 10 mg AZ once ordered. [facility] :49 01:15 NS 0.9% IV 1000 ml IV at 1 bolus Per protocol; 1000 mL bolus ordered. [facility] :49 01:15 Famotidine IVP 20 mg IVP once; dilute with 10 mL 0.9% NaCl; give over 2 minutes [facility] ordered. [facility] :49 01:15 Ondansetron IVP 4 mg IVP once; over 2 minutes ordered. [facility] :49 01:15 Labs collected and sent ordered. [facility] 02:03 01:16 Abdomen Pelvis W Con+CT.RAD.BRZ ordered. EDGA EDMS 02:13 01:15 IV Saline Lock ordered. [facility] vc1
--- NOTE | 2022-11-13 01:59 | ER ---
Nurse's Notes [facility] Name: Toribio Monae Age: 67 yrs Sex: Male : 1955 Arrival Date: 11/13/2022 Time: 01:09 Bed 8 Private MD: Diagnosis: Constipation;Abdominal pain, Generalized Presentation: 11/13 01:43 Chief complaint: Patient states: I have been taking opioids for tooth surgery and I was vc1 constipated. I haven't went to the bathroom since . I've taken 2 tbsp milk of magnesia, stool softeners, Dulcolax X2 and a suppository. I finally went when I got here. Coronavirus screen: Vaccine status: Patient reports receiving the 2nd dose of the covid vaccine. At this time, the client does not indicate any symptoms associated with coronavirus-19. Ebola Screen: Patient negative for fever greater than or equal to 101.5 degrees Fahrenheit, and additional compatible Ebola Virus Disease symptoms Patient denies exposure to infectious person. Patient denies travel to an Ebola-affected area in the 21 days before illness onset. No symptoms or risks identified at this time. Initial Sepsis Screen: Does the patient meet any 2 criteria? No. Patient's initial sepsis screen is negative. Does the patient have a suspected source of infection? No. Patient's initial sepsis screen is negative. Risk Assessment: Do you want to hurt yourself or someone else? Patient reports no desire to harm self or others. Onset of symptoms was November 09, 2022. 01:43 Method Of Arrival: Ambulatory vc1 01:43 Acuity: MANUEL 4 vc1 Triage Assessment: 01:47 General: Appears in no apparent distress. Behavior is calm, cooperative, appropriate vc1 for age. Pain: Denies pain. EENT: No deficits noted. No signs and/or symptoms were reported regarding the EENT system. Neuro: No deficits noted. Cardiovascular: No deficits noted. Respiratory: No deficits noted. GI: No deficits noted. No signs and/or symptoms were reported involving the gastrointestinal system. symptoms resolved. : No deficits noted. Derm: No deficits noted. Musculoskeletal: No deficits noted. Historical: - Allergies: 01:46 No Known Allergies; vc1 - Home Meds: 01:46 None [Active]; vc1 - PMHx: 01:46 None; vc1 - PSHx: 01:46 None; vc1 - Immunization history:: Client reports receiving the 2nd dose of the Covid vaccine, shingles vaccine. - Social history:: Smoking status: Patient denies any tobacco usage or history of. - Family history:: not pertinent. Screenin:48 [facility] ED Fall Risk Assessment (Adult) History of falling in the last 3 months, vc1 including since admission No falls in past 3 months (0 pts) Confusion or Disorientation No (0 pts) Intoxicated or Sedated No (0 pts) Impaired Gait No (0 pts) Mobility Assist Device Used No (0 pt) Altered Elimination No (0 pt) Score/Fall Risk Level 0 - 2 = Low Risk Oriented to surroundings, Maintained a safe environment, Educated pt \T\ family on fall prevention, incl call for assistance when getting out of bed. Abuse screen: Denies threats or abuse. Nutritional screening: No deficits noted. Tuberculosis screening: No symptoms or risk factors identified. Vital Signs: 01:43 BP 128 / 77; Pulse 61; Resp 18; Temp 98.4; Pulse Ox 98% ; Weight 112.49 kg; Height 6 vc1 ft. 0 in. ; 01:43 Body Mass Index 33.63 (112.49 kg, 182.88 cm) vc1 ED Course: 01:13 Patient arrived in ED. kj1 01:14 Kelvin Dorado MD is Attending Physician. dave 01:46 Triage completed. vc1 01:48 Arm band placed on right wrist. vc1 01:49 Patient has correct armband on for positive identification. Bed in low position. Call vc1 light in reach. Pulse ox on. NIBP on. 01:58 Bushra Danielle MD is Referral Physician. dave 02:13 Isabel Sevilla, JOESPH is Primary Nurse. vc1 02:14 No provider procedures requiring assistance completed. Patient did not have IV access vc1 during this emergency room visit. Administered Medications: 01:48 CANCELLED (Duplicate Order): Dulcolax LA Suppository 10 mg LA once dave 01:49 CANCELLED (Duplicate Order): NS 0.9% IV 1000 ml IV at 1 bolus Per protocol; 1000 mL dave bolus 01:49 CANCELLED (Duplicate Order): Famotidine IVP 20 mg IVP once; dilute with 10 mL 0.9% dave NaCl; give over 2 minutes 01:49 CANCELLED (Duplicate Order): Ondansetron IVP 4 mg IVP once; over 2 minutes [facility] 02:13 Drug: Lactulose PO 60 grams Volume: 45 ml; Route: PO; vc1 02:13 Follow up: Response: Medication administered at discharge. vc1 Medication: 01:49 VIS not applicable for this client. vc1 Outcome: 01:58 Discharge ordered by MD. acosta 02:14 Discharged to home ambulatory, with significant other. vc1 02:14 Condition: improved 02:14 Discharge instructions given to patient, Instructed on discharge instructions, follow up and referral plans. medication usage, Demonstrated understanding of instructions, follow-up care, medications, Prescriptions given X 2. 02:15 Patient left the ED. vc1 Signatures: Kelvin Dorado MD MD cha Jackson, Kandis kj1 Isabel Sevilla RN RN vc1
[2022-11-13] MEDS ORDERED: LACTULOSE 20 GM/30 ML UCUP ONE (02:19)
[2022-11-13 03:46] VITALS: BP 128/77; TEMP 98.4; O2SAT 98
== END 2022-11-13 02:15 | disposition home or self-care (01) ==
LOC: ER 01:09
DX: K59.00 Constipation, unspecified (principal); R10.84 Generalized abdominal pain